=== PATIENT | male | born 1955 | race Caucasian/White ===

== ENCOUNTER 2022-11-24 11:18 | Outpatient (OUT) | payer MEDICARE, OTHER, SELFPAY ==
[2022-11-24 12:00] LABS: Bilirubin Urine NEGATIVE (NEGATIVE); Blood Urine SMALL (NEGATIVE); Color Urine LT. YELLOW (YELLOW); Glucose Urine UA NEGATIVE (NEGATIVE); Ketones Urine NEGATIVE (NEGATIVE); Leukocyte Esterase Urine LARGE (NEGATIVE); Nitrite Urine NEGATIVE (NEGATIVE); Protein Urine 30 mg/dL (NEG/TRACE); Urobilinogen Urine 0.2 EU/dL (0.2-1.0)
[2022-11-24 12:04] LABS: Clarity Urine CLOUDY (CLEAR)
[2022-11-24 12:06] LABS: Bacteria Urine TRACE #/HPF (NONE SEEN); Cast Seen? NONE SEEN #/LPF (NONE SEEN); Crystals Seen? None Seen #/HPF (None Seen); Mucus Urine NONE SEEN (NONE SEEN); RBC Urine 0-2 #/HPF (0-2); Squamous Epithelial Cell Urine NONE SEEN #/LPF (NONE/RARE); WBC Urine >100 #/HPF (NONE SEEN)
[2022-11-24 12:07] LABS: Urine Culture Indicated ALREADY ORDERED
== END 2022-11-24 11:19 | disposition home or self-care (01) ==
PROVIDERS: PCP Internal Medicine; Visit Provider Internal Medicine
DX: R30.0 Dysuria (principal)
CPT/HCPCS: 81001; 87086; 87150; 87186

== ENCOUNTER 2023-02-04 23:39 | Emergency (ER) | payer MEDICARE, OTHER, SELFPAY ==
[2023-02-04 23:55] VITALS: BP 124/80; PULSE 99; RESP 18; TEMP 36.8; O2SAT 98
--- NOTE | 2023-02-05 00:13 | CT_ITS ---
The [address] [address] Patient Name: SHANE ROY MRN: [id number] date: 1955 Sex: M Assigned Patient Location: ER Current Patient Location: ER Accession/Order Number: [id number] Exam Date: 02/05/2023 01:10 Report Date: 02/05/2023 01:40 At the request of: MINNA MARKER Procedure: CT hip LT wo con Examination:CT hip LT wo con INDICATION:left hip pain, non ambulatory COMPARISON:There is an older left hip x-ray dated 10/10/2020 available for correlation. TECHNIQUE:Multiple thin section transaxial slices were acquired through the left hip without contrast. Coronal and sagittal reconstructed images were reviewed. FINDINGS:There is an acute comminuted subcapital fracture of the proximal left femur. There is high riding of the femoral shaft in relation to the femoral head. The femoral head is still articulated with the acetabulum. No additional acute osseous injuries are identified elsewhere in the visualized bony pelvis. No fluid collections are identified in the subcutaneous soft tissues. CT/CT hip LT wo con IMPRESSION: Acute comminuted subcapital fracture of the proximal left femur. Electronically authenticated by: SHAYY KLINE Date: 02/05/2023 01:40
--- NOTE | 2023-02-05 00:14 | ED_ITS ---
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 He did not fall today. He did have a fall several weeks ago and was seen at [facility] where he had a CT scan done. He scan was apparently normal. He has been having some pain waxing and waning since that time and the left hip but it became more severe tonight when he felt a popping sensation in his hip. He denies any chest pain or shortness of breath. He is a dialysis patient and last had dialysis Thursday morning. Related Data Home Medications Medication Instructions Recorded Confirmed calcium acetate(phosphat bind) 667 mg 02/05/23 mg capsule furosemide 40 mg tablet mg 02/05/23 pantoprazole 40 mg tablet,delayed mg PO 02/05/23 release Allergies Allergy/AdvReac Type Severity Reaction Status Date / Time shellfish derived Allergy Intermediate Verified 02/05/23 00:02 NSAIDS (Non-Steroidal Allergy Verified 02/05/23 00:02 Anti-Inflamma Review of Systems ROS Status of ROS 10 or more systems reviewed and unremarkable except as noted in history and below Exam Narrative Exam Narrative: Nurses note and vital signs reviewed and patient is not hypoxic. General: Uncomfortable appearing adult male, he is sitting in a stretcher and unable to weight-bear his buttocks on the left side. Skin: Warm, dry, no pallor noted. There is no rash noted. Head: Normocephalic, atraumatic Eye: Normal conjunctiva, no drainage, EOMI. PERRL Ears, Nose, Mouth, and Throat: oral mucosa is moist. Nares patent. Cardiovascular: Regular Rate and Rhythm S1 and S2, no murmurs rubs or gallops a ppreciated Respiratory: Patient is in no distress, no accessory muscle use, lungs are clear to auscultation, no wheezing, rales or rhonchi Back: No midline bony vertebral tenderness or step-off GI: Normal bowel sounds, no tenderness to palpation, no masses appreciated. No rebound, guarding, or rigidity noted. Musculoskeletal: Tenderness with decreased range of motion to the left lateral hip. Lower extremity strength and sensation is intact. Neurological: A&O x4, normal speech Psychiatric: Cooperative Constitutional Vital Signs, click to edit/add: Last Vital Signs Temp 98.2 F 02/04/23 23:55 Pulse 88 02/05/23 02:50 Resp 18 02/05/23 02:50 BP 111/73 02/05/23 02:50 Pulse Ox 98 02/05/23 02:50 O2 Del Method Room Air 02/05/23 02:50 Course Vital Signs Vital signs: Vital Signs Temperature 98.2 F 02/04/23 23:55 Pulse Rate 99 H 02/04/23 23:55 Respiratory Rate 18 02/04/23 23:55 Blood Pressure 124/80 02/04/23 23:55 Pulse Oximetry 98 02/04/23 23:55 Oxygen Delivery Method Room Air 02/04/23 23:55 Temperature 98.2 F 02/04/23 23:55 Pulse Rate 88 02/05/23 02:50 Respiratory Rate 02/05/23 02:50 Blood Pressure 111/73 02/05/23 02:50 Pulse Oximetry 98 02/05/23 02:50 Oxygen Delivery Method Room Air 02/05/23 02:50 Medical Decision Making MDM Narrative Medical decision making narrative: This 67 year-old male who 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 He did not fall. He did have a fall 2 weeks ago and was seen at [facility] where he had a CAT scan done of the hip at that time. He was visibly uncomfortable in the emergency department more comfortable sitting in a wheelchair. He was medicated with IV Dilaudid and taken for CT scan of the left lower extremity. CT scan shows acute comminuted Subcapital fracture of the proximal femur. Due to the fact that the patient is a dialysis patient he is not amenable for admission to this facility. 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 THe case was discussed with Dr Zaldivar, hospitalist at [facility] and he is accepted for transfer. He remains hemodynamically stable in the ED and routine labs are pending at the time of transfer Medical Records Medical records narrative: The [address] [address] [address] Scan Report Signed Patient: SHANE ROY MR#: [id number] : 1955 Acct:[id number] Age/Sex: 67 / M ADM Date: 02/04/23 Loc: ER Attending Dr: Ordering Physician: Minna Love Date of Service: 02/05/23 Procedure(s): CT hip LT wo con Accession Number(s): [id number] cc: Ronen Chen D.O.~ The [address] [address] Patient Name: SHANE ROY MRN: [facility]:[id number] date: 1955 Sex: M Assigned Patient Location: ER Current Patient Location: ER Accession/Order Number: [id number] Exam Date: 02/05/2023 01:10 Report Date: 02/05/2023 01:40 At the request of: MINNA LOVE Procedure: CT hip LT wo con Examination:CT hip LT wo con INDICATION:left hip pain, non ambulatory COMPARISON:There is an older left hip x-ray dated 10/10/2020 available for correlation. TECHNIQUE:Multiple thin section transaxial slices were acquired through the left hip without contrast. Coronal and sagittal reconstructed images were reviewed. FINDINGS:There is an acute comminuted subcapital fracture of the proximal left femur. There is high riding of the femoral shaft in relation to the femoral head. The femoral head is still articulated with the acetabulum. No additional acute osseous injuries are identified elsewhere in the visualized bony pelvis. No fluid collections are identified in the subcutaneous soft tissues. CT/CT hip LT wo con IMPRESSION: Acute comminuted subcapital fracture of the proximal left femur. Discharge Plan Discharge Chief Complaint: Extremity Injury, Lower Clinical Impression: Closed fracture of left hip Patient Disposition: [facility] Time of Disposition Decision: 02:56 Discharge Location: [facility] Condition: Fair Prescriptions / Home Meds: No Action furosemide 40 mg tablet pantoprazole 40 mg tablet,delayed release (DR/EC) PO calcium acetate(phosphat bind) 667 mg capsule Referrals: Ronen Chen DO [Primary Care Provider] - 1 week
[2023-02-05] MEDS: HYDROMORPHONE HCL 2 MG/ML VIAL 1 MG IV ×2 (00:52→02:04)
[2023-02-05] MEDS: ONDANSETRON PF 4 MG/2 ML VIAL IV (00:52)
--- NOTE | 2023-02-05 01:23 | PC.NURSE ---
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
[2023-02-05 02:50] VITALS: BP 111/73; PULSE 88; RESP 18; O2SAT 98
[2023-02-05] MEDS: HYDROMORPHONE HCL 2 MG/ML VIAL IV (03:03)
[2023-02-05 03:07] LABS: Basophils Percent Auto 0.6 % (0.2-2.0); Eosinophils Absolute Auto 0.3 10^3/uL (0.0-0.7); Eosinophils Percent Auto 4.8 % (0.9-7.0); Hematocrit 34.5 % (42.0-54.0); Hemoglobin 11.3 g/dL (14.0-18.0); Immature Granulocytes Abs Auto 0.05 10^3/uL (0.00-0.03); Immature Granulocytes Pct Auto 0.7 % (0.0-0.5); Lymphocytes Absolute Auto 1.8 10^3/uL (1.2-3.8); Lymphocytes Percent Auto 25.8 % (20.5-60.0); Mean Corpuscular HGB Conc 32.8 g/dL (29.9-35.2); Mean Corpuscular Hemoglobin 32.6 pg (25.9-34.0); Mean Corpuscular Volume 99.4 fL (80.0-94.0); Mean Platelet Volume 9.4 fL (9.5-13.5); Monocytes Absolute Auto 0.8 10^3/uL (0.3-0.8); Monocytes Percent Auto 11.4 % (1.7-12.0); Neutrophils Percent Auto 56.7 % (43.0-75.0); Platelet Count 222 10^3/uL (150-450); Red Blood Count 3.47 10^6/uL (4.70-6.10); Red Cell Distribution Width 15.3 % (11.0-15.0); White Blood Count 7.1 10^3/uL (4.0-11.0)
[2023-02-05 03:17] LABS: Alanine Aminotransferase 25 U/L (16-63); Albumin Level 3.2 g/dL (3.4-5.0); Alkaline Phosphatase 67 U/L (46-116); Anion Gap 12.5; Aspartate Amino Transferase 10 U/L (15-37); BUN Creatinine Ratio 5.7; Bilirubin Total 0.3 mg/dL (0.2-1.0); Calcium 8.7 mg/dL (8.5-10.1); Carbon Dioxide 27.8 mmol/L (21.0-32.0); Chloride 102 mmol/L (98-107); Estimated GFR (African America 15 (>=60); Estimated GFR (Non-African Ame 12 (>=60); Globulin 3.3 g/dL; Glucose 83 mg/dL (74-106); Potassium 3.3 mmol/L (3.5-5.1); Sodium 139 mmol/L (136-145); Total Protein 6.5 g/dL (6.4-8.2)
== END 2023-02-05 03:19 | disposition short-term general hospital (02) ==
PROVIDERS: Emergency Provider Emergency Medicine; PCP Internal Medicine
DX: S72.012A Unspecified intracapsular fracture of left femur, initial encounter for closed fracture (principal); Z99.2 Dependence on renal dialysis; Z79.899 Other long term (current) drug therapy
CPT/HCPCS: 36415; 73700; 80053; 85025; 96374; 96375; 96376; 99285; J1170

== ENCOUNTER 2023-03-26 10:48 | Outpatient (RCR) | payer MEDICARE, OTHER, SELFPAY | END 2023-04-24 11:00 | disposition home or self-care (01) | LOC: PT 10:48 | PROVIDERS: PCP Internal Medicine | DX: Z96.642 Presence of left artificial hip joint (principal) | CPT/HCPCS: 97110; 97161 ==

== ENCOUNTER 2023-07-24 03:16 | Emergency (ER) | payer MEDICARE, OTHER, SELFPAY ==
[2023-07-24] VITALS (10 sets, daily range): BP systolic 100–118; BP diastolic 50–59; PULSE 83–114; RESP 12–27; TEMP 37.1–38.6; O2SAT 95–100; BMI 25.4
--- OUTSIDE RECORDS SUMMARY | 2023-07-24 03:40 | XMS_ITS | CCD ---
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 Name Role Phone GABINO, DR LOVE Primary Care Unavailable QUETA, DR GALLEGOS Admitting Unavailable QUETA, DR GALLEGOS Attending Unavailable QUETA, DR GALLEGOS Consulting Unavailable GABINO, DR LOVE Admitting Unavailable GABINO, DR LOVE Attending Unavailable GABINO, DR LOVE Primary Care Unavailable GABINO, DR LOVE Consulting Unavailable TRISTAN, DR SHAHZAD Paredes Consulting Unavailable GABINO, DR LOVE Admitting Unavailable GABINO, DR LOVE Attending Unavailable GABINO, DR LOVE Primary Care Unavailable GABINO, DR LOVE Consulting Unavailable DO Ivan Lloyd Primary Care Provider MD Tk Shah Admit Provider MD Tk Shah Attending Provider Ivan Lloyd DO Primary Care Provider Unavailable Primary Care Provider UnavailVIANNEY Singh Admitting Unavailable VIANNEY OBREGON Attending Unavailable SAIMA SANDERS Referring Unavailable IVAN LLOYD Primary Care Unavailable DELIA, RED Consulting Unavailable ARI JOSE DANIEL Consulting Unavailable NIKKIE MANCERA Consulting Unavailable FRANSISCO MAITHAM Consulting Unavailable TRELL SHEPHERD Consulting Unavailable vIan lLoyd DO Primary Care Provider IVAN LLOYD Primary Care Physician CHYNA Mckinley Emergency Provider [phone] MD Brandi Rodriguez Admit Provider MD Brandi Rodriguez Attending Provider [phone] MD Sergio Lassiter Other Provider MD He Fam Other Provider MD Rodrigo Miller Attending Provider Ivan Lloyd Unavailable Rodrigo Miller Unavailable He Fam Unavailable DO Ivan Lloyd Primary Care Provider MD Rodrigo Miller Attending Provider MD Tk Shah Admit Provider MD He Fam Other Provider MD Patito Lama Other Provider MD Jerome Pagan Other Provider MD Rubens Sanders Other Provider MD Kim Garcia Other Provider MD Maykel Betancur Other Provider MD Maverick Mendoza Other Provider [phone] Other Provider DO Gibson Aragon Other Provider MD Em Melissa II Other Provider DO Naun Le Other Provider MD Erin Anderson Attending Provider [phone] Em Melissa II Unavailable [phone] Jenny Chau Unavailable DO Ivan Lloyd Primary Care Provider MD Rodrigo Miller Attending Provider MD Tk Shah Admit Provider [phone] MD He Fam Other Provider MD Patito Lama Other Provider MD Jerome Pagan Other Provider MD Rubens Sanders Other Provider MD Kim Garcia Other Provider MD Maykel Betancur Other Provider MD Maverick Mendoza Other Provider MD [address] Other Provider DO Gibson Aragon Other Provider [phone] MD Em Melissa II Other Provider [phone] DO Naun Le Other Provider MD Erin Anderson Attending Provider TuDO Shahab aldrich Emergency Provider MD Em Melissa II Attending Provider [phone] DO Ivan Lloyd Primary Care Provider [phone] MD Rodrigo Miller Attending Provider [phone] Em Melissa II Admitting Unavailrosio e [facility] Primary Care Unavailable Em Melissa II Attending UnavailRodrigo Porras Attending Unavailable Rodrigo Miller Admitting Unavailable [facility] Primary Care Unavailable [facility] Primary Care Unavailable Shahab Jones Attending Unavailable Shahab Jones Admitting Unavailable Daromar, Oblizzie M Attending Unavailable Daromar, Obaydah M Admitting Unavailable [facility] Primary Care Unavailable He Fam Consulting Unavailable [facility] Primary Care Unavailable Daromar, Obaydah M Admitting Unavailable Erin Anderson Attending Unavailable DainaPatito bell Consulting Unavailable Singhania, Jerome Consulting Unavailable Tommy, Rubens Consulting Unavailable Kim Garcia Consulting Unavailable Maykel Betancur Consulting Unavailable Maverick Mendoza Consulting Unavailable [address] Consulting Unavailable Gibson Aragon Consulting Unavailable Em Melissa II Consulting UnavailNaun Holly Consulting Unavailable Sergio Lassiter Consulting UnavailBrandi Nicole Attending Unavailable Brandi Rodriguez Admitting Unavailable [facility] Primary Care Unavailable He Fam Consulting [facility] Rodrigo Miller Attending Unavailable Rodrigo Miller Admitting Unavailable Rodrigo Miller Admitting Unavailable Rodrigo Miller Attending [facility] Rodrigo Miller Attending Unavailable Rodrigo Miller Admitting Unavailable Ball, Ivan Primary Care Unavailable Ball, Ivan Primary Care Unavailable Em Melissa II Attending Unavailrosio e Em Melissa II Admitting Unavailabl e SIMS-PEREZYING Attending Unavailable SIMS-PEREZYING Attending Unavailable BALL, IVAN E Primary Care Unavailable FUJIKI, MASATO Referring Unavailable BALL, IVAN E Primary Care Unavailable BALL, IVAN E Primary Care Unavailable BALL, IVAN E Primary Care Unavailable FUJIKI, MASATO Attending Unavailable CHEVY, MARYSOL N Referring Unavailable BALL, IVAN E Primary Care Unavailable BALL, IVAN E Primary Care Unavailable POGGIO, MICHAEL D Referring Unavailable BALL, IVAN E Primary Care Unavailable CAN YUSUF Attending Unavailable BALL, IVAN E Primary Care Unavailable FUJIKI, MASATO Attending Unavailable CHEVY, MARYSOL N Referring Unavailable BALL, IVAN E Primary Care Unavailable FUJIKI, MASATO Attending Unavailable FUJIKI, MASATO Admitting Unavailable FUJIKI, MASATO Referring Unavailable JUAN MANUEL DUTTON Attending Unavailable BALL, IVAN E Primary Care Unavailable POGGIO, MICHAEL D Referring Unavailable BALL, IVAN E Primary Care Unavailable BALL, IVAN E Primary Care Unavailable BALL, IVAN E Primary Care Unavailable BALL, IVAN E Primary Care Unavailable BALL, IVAN E Primary Care Unavailable ELASHI, ESSAM B Referring Unavailable BALL, IVAN E Primary Care Unavailable ELASHI, ESSAM B Referring Unavailable JulyeBarby. Attending Unavailable Naun Abbasi Attending Unavailable LueBarby M. Attending Unavailable JulyeBarby M. Attending Unavailable Treva, Mohamad A. Attending Unavailable JulyeBarby M. Attending Unavailable JulyeBarby M. Attending Unavailable JulyeBarby M. Attending Unavailable JulyeBarby M. Attending Unavailable JulyeBarby M. Attending Unavailable JulyeBarby M. Attending Unavailable Mouchli, Mohamad A. Admitting Unavailable Mouchli, Mohamad A. Attending Unavailable Mouchli, Mohamad A. Referring Unavailable Elver Suggs Attending Unavailable Allergies Allergy Classification Reported Allergen(s) Allergy Type Date of Onset Reaction(s) Facility (3 sources) Shellfish; Translations: [shellfish] Drug allergy (disorder) 3 Anaphylaxis (disorder), Edema (finding) [facility] (7 sources) Shellfish; Translations: [shellfish derived] Allergy to substance 3 Anaphylaxis [facility] (20 sources) Shellfish; Translations: [shellfish] Drug Allergy 3 Anaphylaxis, Edema (finding), Anaphylaxis (disorder) [facility] (19 sources) Seasonal allergy Propensity to adverse reactions Unknown [employer] Other (4 sources) patient allergy list reviewed by nurse or physicia Propensity to adverse reactions 8 Comment:Done [employer] Other (1 source) Unable to obtain; Translations: [Unable to obtain] Propensity to adverse reactions (disorder) [facility]ository Medications Current Medications Medication Drug Class(es) Dates Sig (Normalized) Sig (Original) Acetaminophen (1 source) Start: 07-28-2022 acetaminophen (TYLENOL) tablet 650 mg ascorbic acid 500 mg oral tablet (12 sources) Vitamin C Start: 02-06-2023 take 1 tablet by mouth twice daily at mealtime Ascorbic Acid (Vitamin C) (Vitamin C) 500 mg Tablet Active 500 MG PO Twice daily with meals February 05, 2023 11:00pm take 1 tablet by mouth once annetta y Ascorbic Acid 500 MG 1 tablet Orally Once a day Active calcium acetate (20 sources) Start: 01-29-2023 calcium acetat e mg, Oral Start Date: 01/29/23 Status: Ordered Start: 09-11-2022 take 1 tablet by asaf th every eight hours Calcium Acetate (Phos Binder) 667 MG 1 tablet Orally Three times a day September, Active calcium citrate 950 mg oral tablet (20 sources) Start: 10-20-2022 calcium (as ca lcium citrate) 200 mg oral tablet 950 mg = 1 tab(s) Start Date: 10/20/22 Status: Ordered Start: 08-13-2022 End: 09-11-2022 take 1 tablet by mouth twice daily calcium citrate (CALCITRATE) 200 mg (950 mg) tab Take 1 tablet by mouth twice daily. 60 tablet 2 08/13/2022 Active Comment on above: Take 1 tablet by asaf th twice daily. Centrum Silver (1 source) Start: 4 Centrum Silver Oral, Daily, Refill(s) 0 Start Date: 07/16/23 Status: Ordered Centrum Silver - (8 sources) Centrum Silver - as directed Orally Active cholecalciferol 0.01 mg oral capsule (12 sources) Vitamin D Start: take 200 [IU] by mouth once daily Cholecalciferol (Vitamin D3) Active 200 UNIT PO Daily January 21, 2023 11:00pm take 1 capsule by mouth once dennise ly cholecalciferol, vitamin D3, (VITAMIN D-3) 10 mcg (400 unit) cap Take 400 Units by mouth once daily. 0 Active take 1 capsule by mouth once dennise ly Cholecalciferol, Vitamin D3, 50 mcg (2,000 unit) cap Take 2,000 Units by mouth once daily. 0 Suspended take 1 capsule by mouth twice da maryse Cholecalciferol ([facility] VITAMIN D) 2000 UNITS CAPS Take 2,000 Units by mouth 2 times daily. 0 Suspended Comment on above: Take 2,000 Units by mouth once daily. Take 400 Units by mo [facility] once daily. Aranesp (20 sources) Erythropoiesis-stimulati ng Agent Start: 07-16-2023 Aranesp once weekly thursday, Refills(s) 0 Start Date: 07/16/23 Status: Ordered Start: 01-22-2023 inject 25 ug by subc utaneous injection every week Darbepoetin Trevor In Polysorbat (Aranesp (In Polysorbate)) 25 mcg/mL Solution Active 25 MCG SUBCUT every week January 21, 2023 11:00pm darbepoetin trevor in polysorbat (ARANESP) 100 mcg/0.5 mL Syringe Inject 100 mcg subcutaneously one time a week. 0 Active Aranesp (Albumin Free) 60 MCG/ML 1 mL Injection Active Comment on above: Inject 100 mcg subcu taneously one time a week. doxycycline hyclate 100 mg oral capsule (9 sources) Tetracycline-class Drug Start: 11-12-2022 take 1 capsule by [facility] once daily in the morning Doxycycline 40 MG 1 capsule in the morni ng on an empty stomach Orally Once a day Active furosemide 40 mg oral tablet (20 sources) Loop Diuretic Start: 09-24-2022 take 1 mg by mouth once daily Lasix 40 mg Tab mg tab(s), Oral, Daily, Refills(s) 0 Start Date: 07/16/23 Status: Ordered Comment on above: Take 40 mg by mouth once daily. heparin (15 sources) Unfractionated Heparin, Anti-coagulant Start: 07-16-2023 heparin See Instructions, 2000 units every dialysis mid dose and 4000 units every diaylsis loading dose., Refills(s) 0 Start Date: 07/16/23 Status: Ordered Heparin Sodium, Porcine, 5,000 unit/mL syrg Inject 1,000 Units intravenously. 0 Active Heparin Sodium ( Porcine) 1000 UNIT/ML as directed Injection Active Heparin Sodium ( Porcine) 1000 UNIT/ML as directed Injection Active Heparin Sodium ( Porcine) 1000 UNIT/ML as directed Injection Active inject 1000 [IU] intravenously o nce Heparin Sodium, Porcine, (HEPARIN, PORCINE) 1000 UNIT/ML injection Infuse 1,000 Units intravenously once. 0 Suspended Comment on above: Inject 1,000 Units i ntravenously. levoFLOXacin 250 mg oral tablet (13 sources) Quinolone Antimicrobial Start: 01-22-2023 End: 02-05-2023 levofloxacin 250 mg Tab Refills(s) 0 Start Date: 01/29/23 Status: Ordered Start: 11-26-2022 levoFLOXacin 250 MG 2 tablets today (Thursday) then 1 tablet after dialysis Thu, Thu and Thursday Orally After dialysis on Thu, Thu and Thursday only for 14 days Active take 1 tablet by asaf th once daily levofloxacin (LEVAQUIN) 250 MG tablet Take 250 mg by mouth daily. 0 Suspended Multivitamin preparation (11 sources) Start: 09-08-2022 take 1 tablet by mouth once daily Multivitamin Active 1 TAB PO Daily September 07, 2022 11:00pm Start: 09-08-2022 take 1 tablet by asaf th once daily Multivitamin Active 1 TAB PO Daily September 08, 2022 12:00am Start: 07-27-2022 End: 09-08-2022 take 1 tablet by mouth once daily Multivitamin Discontinued 1 TAB PO Daily July 27, 2022 12:00am September 08, 2022 12:09pm Start: 07-27-2022 End: 09-08-2022 take 1 tablet by mouth once daily Multivitamin Discontinued 1 TAB PO Daily July 27, 2022 1:00am September 08, 2022 1:09pm Start: 07-27-2022 take 1 tablet by aasf th once daily Multivitamin Active 1 TAB PO Daily July 27, 2022 1:00am ondansetron (ZOFRAN-ODT) disintegrating tablet 4 mg (1 source) Start: 07-28-2022 ondansetron (ZOFRAN-ODT) disintegrating tablet 4 mg oxyCODONE hydrochloride 5 mg oral capsule (10 sources) Opioid Agonist Start: 01-23-2023 take 1 capsule by mouth every six hours as needed for pain oxyCODONE 5 mg Cap 5 mg = 1 cap(s), Oral, q6hr, PRN for pain, # 18 cap(s), Refills(s) 0, Pharmacy: [id number], 183, cm, 01/23/23 17:14:00 EDT, Height/Length Dosing, 83, kg, 01/23/23 17:14:00 EDT, Weight Dosing Start Date: 01/23/23 Status: Ordered Start: 09-08-2022 End: 09-11-2022 take 5 mg by mouth once daily Oxycodone Discontinued 5 MG PO Daily September 07, 2022 11:00pm September 11, 2022 12:18pm Start: 08-13-2022 End: 08-20-2022 take 1 tablet by mouth once daily as needed oxyCODONE IR (ROXICODONE) 5 mg immediate release tablet Indications: Abdominal pain, unspecified abdominal location Take 1 tablet by mouth once daily as needed for up to 7 days. 7 tablet 0 08/13/2022 08/20/2022 Active Comment on above: Take 1 tablet by asaf th once daily as needed for up to 7 days. pantoprazole 40 mg delayed release oral tablet (20 sources) Proton Pump Inhibitor Start: 08-13-2022 End: 04-16-[address] Tab 40 mg = 1 tab(s) Start Date: 10/20/22 Status: Ordered Pantoprazole Sod ium 40 MG 1 tablet Orally Once a day, on an empty stomach 30 minutes prior to bksfst for 90 days Active Comment on above: Take 1 tablet by asaf th twice daily before meals at 6am and 4pm pantoprazole (PROTONIX) 80 mg in sodium chloride 0.9 % 100 mL infusion (1 source) Start: 07-29-19 End: 08-01-19 pantoprazole (PROTONIX) 80 mg in sodium chloride 0.9 % 100 mL infusion 1 ml paricalcitol 0.002 mg/ml injection (4 sources) Vitamin D3 Analog Start: 01-23-20 take 2 ug intravenously three times weekly Paricalcitol (Zemplar) 2 mcg/mL Solution Active 6 MCG IV 3 Times a week January 21, 2023 11:00pm polyethylene glycol 3350 84575 mg powder for oral solution (1 source) Osmotic Laxative Start: 07-29-19 polyethylene glycol (GLYCOLAX) packet 17 g polysaccharide iron complex 150 mg oral capsule (8 sources) take 1 capsule by mouth three times weekly Ferrex 150 150 MG 1 capsule Orally Three times a Week Active sodium bicarbonate 150 mEq in dextrose 5 % 1,000 mL infusion (1 source) Start: 07-29-19 sodium bicarbonate 150 mEq in dextrose 5 % 1,000 mL infusion 1000 ml sodium chloride 9 mg/ml injection (5 sources) Start: 07-29-19 End: 07-30-19 0.9 % sodium chloride infusion Start: 07-28-2022 sodium chlorid e flush 0.9 % injection 5-40 mL tamsulosin hydrochloride 0.4 mg oral capsule (20 sources) alpha-Adrenergic Carmen Start: 09-11-2022 tamsu losin 0.4 mg Cap 0.4 mg = 1 cap(s) Start Date: 10/20/22 Status: Ordered Comment on above: Take 0.4 mg by mouth once daily. Vitamin D3 (1 source) Start: 07-16-2023 Vitamin D3 See Instructions, Refills(s) 0 Start Date: 07/16/23 Status: Ordered Vitamin D3 2000 UNIT (5 sources) take 1 capsule by mouth once dennise ly Completed/Discontinued Medications Medication Drug Class(es) Dates Sig (Normalized) Sig (Original) acetaminophen 325 mg / oxyCODONE hydrochloride 5 mg oral tablet (13 sources) Opioid Agonist Start: 02-06-2023 End: 04-16-2023 take 1 tablet by mouth every six hours Oxycodone-Acetamin ophen (Percocet) 5-325 mg tablet Discontinued 1 TAB PO Q6H 04 11March 05, 2023 April 16, 2023 12:07pm amoxicillin 875 mg / clavulanate 125 mg oral tablet (2 sources) Penicillin-class Antibacterial Start: 03-08-2023 End: 04-16-2023 take 1 tablet by mouth twice daily Amoxicillin-Pot Clavulanate Discontinued 1 TAB PO Twice daily March 07, 2023 11:00pm April 16, 2023 12:05pm apixaban 2.5 mg oral tablet (12 sources) Factor Xa Inhibitor Start: 02-06-2023 End: 04-16-2023 take 1 tablet by mouth twice daily Apixaban (Eliquis) 2.5 mg tablet Discontinued 2.5 MG PO Twice daily 70 35 February 05, 2023 11:00pm April 16, 2023 12:06pm ascorbic acid 100 mg / biotin 0.15 mg / calcium pantothenate 5 mg / folic acid 1 mg / niacin 20 mg / pyridoxine 10 mg / riboflavin 1.7 mg / thiamine mononitrate 1.5 mg / vitamin b12 0.006 mg oral capsule (1 source) Nicotinic Acid, Vitamin B12, Vitamin C take 1 capsule by mouth once daily B Wdsocvt-L-Lnlxl Acid (RENAL SOFTGELS) 1 MG CAPS Take 1 mg by mouth daily. 0 Suspended 100 ml calcium gluconate 20 mg/ml injection (2 sources) Start: 07-28-2022 End: 07-29-2022 calcium gluconate 2,000 mg in sodium chloride 100 mL Calcium Phos,Dibas-Vitamin D3 (Vitamin D (With Calcium)) 77-400 mg-unit Tablet (5 sources) Start: 09-08-2022 End: 09-08-2022 take 1 tablet by mouth once Calcium Phos,Dibas-Vitamin D3 (Vitamin D (With Calcium)) 77-400 mg-unit Tablet Discontinued TAB PO September 07, 2022 11:00pm September 08, 2022 5:16pm Start: 09-08-2022 End: 09-08-2022 take 1 tablet by mouth once Calcium Phos,Dibas-Vitamin D3 (Vitamin D (With Calcium)) 77-400 mg-unit Tablet Discontinued TAB PO September 08, 2022 12:00am September 08, 2022 6:16pm cefadroxil 500 mg oral capsule (10 sources) Cephalosporin Antibacterial Start: 02-06-2023 End: 04-16-2023 take 500 mg by mouth twice daily Cefadroxil Discontinued 500 MG PO Twice daily 14 7 February 05, 2023 11:00pm April 16, 2023 12:06pm take 1 capsule by [facility] every twelve hours Cefadroxil 500 MG 1 capsule Orally every 12 hrs Active cefTRIAXone (ROCEPHIN) 1,000 mg in sterile water 10 mL IV syringe (1 source) Start: 07-28-2022 End: 07-28-2022 cefTRIAXone (ROCEPHIN) 1,000 mg in sterile water 10 mL IV syringe cephalexin 250 mg oral capsule (18 sources) Cephalosporin Antibacterial Start: 09-11-2022 take 1 capsule by mouth twice daily cephALEXin (KEFLEX) 250 mg capsule Take 250 mg by mouth twice daily. 0 09/11/2022 Active Start: 09-11-2022 End: 01-22-2023 take 250 mg by mouth every twelve hours Cephalexin Discontinued 250 MG PO Every 12 hours 6 September 10, 2022 11:00pm January 22, 2023 7:01am Comment on above: Take 250 mg by mouth twice daily. ergocalciferol 1.25 mg oral capsule (20 sources) Provitamin D2 Compound Start: 08-17-19 End: 01-23-20 take 1 capsule by mouth two times weekly ergocalciferol 50,000 unit capsule (VITAMIN D2, DRISDOL) Take 1 capsule by mouth two times a week. 8 capsule 2 08/16/2022 Active Comment on above: Take 1 capsule by [facility] two times a week. ferrous sulfate 324 mg delayed release oral tablet (20 sources) Start: 02-07-20 End: 04-16-20 take 324 mg by mouth twice daily at mealtime Ferrous Sulfate Discontinued 324 MG PO Twice daily with meals February 05, 2023 11:00pm April 16, 2023 12:06pm Start: 08-13-2022 [facility] ferrous sulfate 325 mg (65 mg iron) tablet Take 1 tablet by mouth once daily. 30 tablet 2 08/13/2022 Active Start: 07-27-2022 take 1 tablet by asaf twice daily ferrous sulfate 325 mg (65 mg iron) tablet Take 325 mg by mouth twice daily. 0 07/27/2022 Suspended Start: 07-27-2022 End: 01-22-2023 take 325 mg by mouth once daily Ferrous Sulfate Discon tinued 325 MG PO Daily September 07, 2022 11:00pm January 22, 2023 7:13am Comment on above: Take 325 mg by mouth twice daily. Take 1 tablet by asaf th once daily. iopamidol (ISOVUE-370) 76 % injection 100 mL (1 source) Start: 3 End: 3 iopamidol (ISOVUE-370) 76 % injection 100 mL iron sucrose (1 source) Parenteral Iron Replacement IRON SUCROSE IV Infuse intravenously. 0 Suspended MV with Lio-Gfrphlmy-Dtexqq (CENTRUM SILVER) 0.4 mg-300 mcg- 250 mcg tab (5 sources) MV with Pmg-Hajydurs-Phdmbo (CENTRUM SILVER) 0.4 mg-300 mcg- 250 mcg tab Take by mouth. 0 Active Comment on above: Take by mouth. omeprazole 10 mg granules for oral suspension (3 sources) Proton Pump Inhibitor Omeprazole Magnesium 10 mg suDR Take by mouth as directed. 0 Suspended Comment on above: Take by mouth as dir ected. ondansetron 4 mg oral tablet (20 sources) Serotonin-3 Receptor Antagonist Start: 3 End: 3 take 1 tablet by mouth every twelve hours as needed ondansetron (ZOFRAN) 4 mg tablet Take 1 tablet by mouth every 12 hours as needed for nausea/vomiting. 20 tablet 0 08/13/2022 Active Comment on above: Take 1 tablet by asaf every 12 hours as needed for nausea/vomiting. 50 ml potassium chloride 0.4 meq/ml injection (1 source) Start: 3 End: 3 potassium chloride 20 mEq/50 mL IVPB (Central Line) Start: 07-28-2022 End: 07-28-2022 potassium chloride 20 mEq/50 mL IVPB (Central Line) predniSONE 10 mg oral tablet (4 sources) Start: 01-23-2023 predniSONE 10 mg Tab 10 mg = 1 tab(s), Oral, As Directed, 6 tabs for 2 days,5 tabs for 2 days,4 tabs for 2 days,3 tabs for 2 days,2 tabs for 2 days,1 tab for 2 days, # 42 tab(s), Refills(s) 0, Pharmacy: [id number], 183, cm, 01/23/23 17:14:00 EDT, Height/Length Dosing, 83, kg, 01/23/23 17:14:00 EDT, Weight Dosing Start Date: 01/23/23 Status: Ordered sevelamer carbonate 800 mg powder for oral suspension (3 sources) Phosphate Binder sevelamer carbonate (RENVELA) 0.8 gram pwpk Take 0.8 g by mouth as directed. 0 Suspended Comment on above: Take 0.8 g by mouth as directed. therapeutic multivitamin-minera ls (THERA-M PLUS) 9 mg iron-400 mcg tablet (15 sources) Start: 08-14-2022 therapeutic multivitamin-digital forensics examiner als (THERA-M PLUS) 9 mg iron-400 mcg tablet Take 1 tablet by mouth once daily. 30 tablet 2 08/14/2022 Active Comment on above: Take 1 tablet by asaf th once daily. 100 ml tranexamic acid 10 mg/ml injection (2 sources) Antifibrinolytic Agent Start: 07-28-2022 End: 07-29-2022 tranexamic acid-NaCl IVPB premix 1,000 mg traZODone hydrochloride 50 mg oral tablet (3 sources) Serotonin Reuptake Inhibitor take 1 tablet by mouth once daily at bedtime traZODone (DESYREL) 50 mg tablet Take 50 mg by mouth daily at bedtime. 0 Suspended Comment on above: Take 50 mg by mouth daily at bedtime. warfarin sodium 5 mg oral tablet (3 sources) Vitamin K Antagonist warfarin (COUMADIN) 5 mg tablet Take 5 mg by mouth. 0 Suspended Comment on above: Take 5 mg by mouth. Problems Active Problems Problem Classification Problem Date Documented Date Episodic/Chronic Abdominal hernia (20 sources) Incisional hernia; Translations: [Incisional hernia without obstruction or gangrene] Episodic Acute and unspecified renal failure (20 sources) Uremia; Translations: [Unspecified kidney failure] Onset: 3 07-27-2022 Chronic Acute and unspecified renal failure (20 sources) Injury of kidney; Translations: [Acute kidney failure, unspecified] Onset: 3 07-27-2022 Episodic Administrative/social admission (1 source) Dietary counseling and surveillance; Translations: [Dietary counseling and surveillance] Onset: 4 Episodic Calculus of urinary tract (11 sources) Kidney stone; Translations: [Calculus of kidney] Onset: 3 Episodic Chronic kidney disease (20 sources) Chronic kidney disease, stage 4 (severe); Translations: [Chronic kidney disease, unspecified] Onset: 2 07-29-2022 Chronic Chronic kidney disease (4 sources) Chronic kidney disease; Translations: [Chronic kidney disease, stage 3b] Onset: 3 Complications of surgical procedures or medical care (20 sources) Short bowel syndrome; Translations: [Postsurgical malabsorption, not elsewhere classified] Onset: 3 07-29-2022 Chronic Congestive heart failure; nonhypertensive (1 source) Congestive heart failure; Translations: [Heart failure, unspecified] 07-09-2023 Chronic Deficiency and other anemia (2 sources) Anemia; Translations: [Anemia in chronic kidney disease] Chronic Deficiency and other anemia (2 sources) Anemia in chronic kidney disease Chronic Deficiency and other anemia (20 sources) Anemia; Translations: [Anemia, unspecified] 09-09-2022 Episodic Deficiency and other anemia (14 sources) Pernicious anemia; Translations: [Vitamin B12 deficiency anemia due to intrinsic factor deficiency] Episodic E Codes: Fall (1 source) Fall; Translations: [Unspecified fall, initial encounter] Onset: 3 Episodic Esophageal disorders (19 sources) Gastro-esophageal reflux disease with esophagitis; Translations: [Gastroesophageal reflux disease with esophagitis without hemorrhage] Chronic Essential hypertension (19 sources) Hypertensive disorder; Translations: [Hypertension, unspecified] Chronic Gastritis and duodenitis (1 source) Acute gastritis with bleeding Episodic Gastrointestinal hemorrhage (14 sources) Melena; Translations: [Melena] Onset: 3 Episodic Genitourinary symptoms and ill-defined conditions (20 sources) Acute retention of urine ; Translations: [Other retention of urine] Onset: 3 09-09-2022 Episodic Hyperplasia of prostate (20 sources) Retention of urine; Translations: [Benign prostatic hyperplasia with lower urinary tract symptoms] Onset: 0 Chronic Immunizations and screening for infectious disease (2 sources) Encounter for screening for infections with a predominantly sexual mode of transmission; Translations: [Encounter for screening for human immunodeficiency virus [HIV]] Onset: 4 Episodic Inflammatory conditions of male genital organs (7 sources) Acute prostatitis; Translations: [Prostatitis] Onset: 3 Episodic Nutritional deficiencies (20 sources) Deficiency of macronutrients; Translations: [Unspecified severe protein-calorie malnutrition] Onset: 3 08-04-2022 Chronic Osteoarthritis (14 sources) Osteoarthritis; Translations: [Polyosteoarthritis, unspecified] Chronic Other aftercare (3 sources) Patient encounter status; Translations: [Aftercare following joint replacement surgery] Chronic Other aftercare (1 source) Aftercare following joint replacement surgery Chronic Other circulatory disease (6 sources) Surgically constructed arteriovenous fistula 10-16-2022 Chronic Other connective tissue disease (8 sources) History of total replacement of left hip joint; Translations: [Presence of left artificial hip joint] Chronic Other connective tissue disease (4 sources) Presence of left artificial hip joint Chronic Other connective tissue disease (3 sources) Hip joint prosthesis present; Translations: [Presence of left artificial hip joint] Chronic Other connective tissue disease (1 source) Pain in left arm; Translations: [Pain in left arm] Onset: 3 Episodic Other connective tissue disease (1 source) Other specified soft tissue disorders; Translations: [Other specified soft tissue disorders] Onset: 3 Episodic Other diseases of kidney and ureters (5 sources) Hyperparathyroidism due to renal insufficiency; Translations: [Secondary hyperparathyroidism of renal origin] 09-10-2022 Chronic Other diseases of kidney and ureters (6 sources) Secondary hyperparathyroidism of renal origin; Translations: [Secondary hyperparathyroidism (of renal origin)] Onset: 3 09-11-2022 Chronic Other diseases of kidney and ureters (1 source) Urinary tract obstruction; Translations: [Other obstructive and reflux uropathy] Onset: 3 Episodic Other diseases of veins and lymphatics (20 sources) Peripheral venous insufficiency; Translations: [Venous insufficiency (chronic) (peripheral)] Onset: 3 Episodic Other gastrointestinal disorders (1 source) Intestinal bypass and anastomosis status; Translations: [S/P total gastrectomy and Hanna-en-Y esophagojejunal anastomosis] Onset: 3 Chronic Other gastrointestinal disorders (8 sources) Bariatric surgery status; Translations: [Bariatric surgery status] Onset: 2 07-28-2022 Episodic Other gastrointestinal disorders (8 sources) History of bypass of stomach; Translations: [Bariatric surgery status] Onset: 3 07-27-2022 Episodic Other gastrointestinal disorders (12 sources) H/O: gastrointestinal disease; Translations: [Personal history of other diseases of the digestive system] 07-27-2022 Episodic Other hematologic conditions (1 source) H/O: blood disorder; Translations: [Personal history of diseases of the blood and blood-forming organs and certain disorders involving the immune mechanism] Onset: 4 Episodic Other male genital disorders (1 source) H/O: male genital disorder; Translations: [Personal history of other diseases of male genital organs] Onset: 3 Episodic Other male genital disorders (2 sources) History of prostatitis 03-10-2023 Episodic Other nervous system disorders (2 sources) Postoperative pain ; Translations: [Other acute postprocedural pain] 03-16-2023 Episodic Other non-traumatic joint disorders (14 sources) Arthralgia of the pelvic region and thigh; Translations: [Pain in left hip] Episodic Other non-traumatic joint disorders (1 source) Hip joint effusion; Translations: [Effusion, unspecified hip] Onset: 3 Episodic Other non-traumatic joint disorders (1 source) Pain of left hip joint; Translations: [Pain in left hip] Onset: 3 Episodic Other nutritional; endocrine; and metabolic disorders (2 sources) Obesity, unspecified; Translations: [OBESITY UNSPECIFIED] Onset: 2 Chronic Other nutritional; endocrine; and metabolic disorders (13 sources) Obesity; Translations: [Obesity, unspecified] Chronic Other nutritional; endocrine; and metabolic disorders (13 sources) Obese class I; Translations: [Body mass index 32.0-32.9, adult] Onset: 0 Chronic Other nutritional; endocrine; and metabolic disorders (13 sources) Simple obesity ; Translations: [Other obesity due to excess calories] Onset: 0 Chronic Other nutritional; endocrine; and metabolic disorders (1 source) Other obesity due to excess calories; Translations: [Other obesity due to excess calories] Onset: 0 Chronic Other nutritional; endocrine; and metabolic disorders (1 source) Primary hyperoxaluria; Translations: [Oxalosis (HCC)] Onset: 4 Chronic Other nutritional; endocrine; and metabolic disorders (1 source) Other disorders of phosphorus metabolism; Translations: [Hyperphosphatemia] Onset: 3 Chronic Other nutritional; endocrine; and metabolic disorders (14 sources) Overweight; Translations: [Overweight] Episodic Other nutritional; endocrine; and metabolic disorders (1 source) Abnormal weight loss; Translations: [Abnormal weight loss] Onset: 4 Episodic Other screening for suspected conditions (not mental disorders or infectious disease) (8 sources) Encounter for screening for malignant neoplasm of prostate; Translations: [Encounter for screening for malignant neoplasm of colon] Onset: 2 Episodic Peripheral and visceral atherosclerosis (1 source) Vascular disorder of intestine, unspecified; Translations: [Ischemia, bowel (HCC)] Onset: 3 Chronic Phlebitis; thrombophlebitis and thromboembolism (20 sources) Personal history of other venous thrombosis and embolism; Translations: [Embolism from thrombosis of vein of distal lower extremity] Onset: 2 Episodic Residual codes; unclassified (1 source) Awaiting organ transplant status; Translations: [Awaiting transplantation of kidney] Onset: 4 Chronic Residual codes; unclassified (3 sources) H/O: Disorder; Translations: [Personal history of other specified conditions] Onset: 3 Episodic Residual codes; unclassified (1 source) Past history of procedure; Translations: [Other specified postprocedural states] Onset: 4 Episodic Spondylosis; intervertebral disc disorders; other back problems (15 sources) Lumbosacral spondylosis without myelopathy; Translations: [Other spondylosis with radiculopathy, lumbosacral region] Onset: 3 Chronic Unclassified (1 source) PERSONAL HISTORY OF COVID-19; Translations: [PERSONAL HISTORY OF COVID-19] Onset: 2 Unclassified (1 source) Presence of left artificial hip joint; Translations: [Presence of left artificial hip joint] Onset: 3 Unclassified (1 source) Encounter for adjustment and management of vascular access device; Translations: [Encounter for adjustment and management of vascular access device] Onset: 3 Unclassified (1 source) Fracture of unspecified part of neck of left femur, initial encounter for closed fracture; Translations: [Fracture of unspecified part of neck of left femur, initial encounter for closed fracture] Onset: 3 Unclassified (1 source) Encounter for other preprocedural examination; Translations: [Encounter for other preprocedural examination] Onset: 3 Unclassified (1 source) Acidosis, unspecified; Translations: [Acidosis, unspecified] Onset: 3 Viral infection (4 sources) COVID-19; Translations: [COVID-19] Onset: 2 Past or Other Problems Problem Classification Problem Date Documented Da te Episodic/Chronic Abdominal pain (1 source) Unspecified abdominal pain; Translations: [Abdominal pain, unspecified abdominal location] Onset: 07-29-2022 Episodic Acute posthemorrhagic anemia (20 sources) Acute posthemorrhagic anemia; Translations: [Acute posthemorrhagic anemia] Onset: 07-27-2022 07-27-2022 Episodic Deficiency and other anemia (12 sources) Anemia, unspecified; Translations: [Anemia, unspecified] Onset: 03-21-2022 Episodic Esophageal disorders (3 sources) Esophageal disorders Fluid and electrolyte disorders (20 sources) Metabolic acidosis; Translations: [Metabolic acidosis] Onset: 07-29-2022 07-27-2022 Episodic Fracture of neck of femur (hip) (14 sources) Closed fracture of hip; Translations: [Fracture of unspecified part of neck of left femur, initial encounter for closed fracture] Onset: 02-05-2023 02-05-2023 Episodic Nutritional deficiencies (14 sources) Vitamin B deficiency; Translations: [Deficiency of other specified B group vitamins] Onset: 01-31-2013 Episodic Other aftercare (1 source) Other intermediate (current) drug therapy; Translations: [OTH NURSING HOME CURRENT DRUG THERAPY] Onset: 12-02-2021 Episodic Other diseases of veins and lymphatics (1 source) Venous insufficiency (chronic) (peripheral); Translations: [VENOUS INSUFF CHRONIC PERIPHERAL] Onset: 12-02-2021 Episodic Other gastrointestinal disorders (4 sources) Personal history of other diseases of the digestive system; Translations: [Personal history of other diseases of digestive system] Onset: 07-27-2022 07-28-2022 Episodic Other nutritional; endocrine; and metabolic disorders (1 source) Body mass index (BMI) 28.0-28.9, adult; Translations: [BODY MASS INDEX BMI 28.0-28.9 ADULT] Onset: 12-02-2021 Episodic Other upper respiratory infections (1 source) Acute pharyngitis, unspecified; Translations: [ACUTE PHARYNGITIS UNSPECIFIED] Onset: 12-02-2021 Episodic Pulmonary heart disease (1 source) Personal history of pulmonary embolism; Translations: [PERSONAL HISTORY PULMONARY EMBOLISM] Onset: 12-02-2021 Episodic Residual codes; unclassified (1 source) Other specified postprocedural states; Translations: [S/P exploratory laparotomy] Onset: 08-04-2022 Episodic Residual codes; unclassified (1 source) Acquired absence of stomach [part of]; Translations: [S/P total gastrectomy and Hanna-en-Y esophagojejunal anastomosis] Onset: 07-29-2022 Episodic Residual codes; unclassified (1 source) Encounter for procedure for purposes other than remedying health state, unspecified; Translations: [Surgery, elective] Onset: 07-29-2022 Episodic Respiratory failure; insufficiency; arrest (adult) (1 source) Respiratory failure; insufficiency; arrest (adult); Translations: [Unspecified venous (peripheral) insufficiency] Onset: 01-31-2013 Shock (1 source) Other shock; Translations: [Hemorrhagic shock (HCC)] Onset: 07-29-2022 Episodic Syncope (9 sources) Syncope and collapse; Translations: [Syncope and collapse] Onset: 07-27-2022 07-27-2022 Episodic Unclassified (14 sources) Hernia of other specified sites, with gangrene; Translations: [Hernia of other specified sites, with gangrene] Resolved: 02-08-2020 Unclassified (1 source) Body mass index 32.0-32.9, adult; Translations: [Body mass index 32.0-32.9, adult] Onset: 05-[birth year]-1959 Unclassified (1 source) Routine general medical examination at health care facility; Translations: [Routine general medical examination at health care facility] Onset: 01-15-2016 Urinary tract infections (8 sources) Urinary tract infectious disease; Translations: [Urinary tract infection, site not specified] Onset: 09-08-2022 09-08-2022 Episodic Results Test Name Value Interpretation Reference Range Facility [facility] 07-22-2023 Consent [id number] F [facility] Discharge Instructionson Discharge Instructions [id number] F [facility] Main OR Intraoperative Recor don 07-22-2023 Main OR Intraoperative Record IntraOp Document Type FT Summary Primary Physician: Catrachita Tilley MD Finalized Date/Time: 07/22/23 12:44:56 Pt. Name: MELE SKY /Sex: 1955 Male Med Rec #: [id number] Physician: Catrachita Tilley MD Financial #: [id number] Pt. Type: O Room/Bed: / Admit/Disch: 07/21/23 07:44:39 - 07/21/23 23:59:59 Institution: Case Times FT Entry 1 Patient Times In Room 07/21/23 08:40:00 Out Room 07/21/23 09:17:00 Procedure Times Start 07/21/23 08:46:00 Stop 07/21/23 09:15:00 Anesthesia Times Start 07/21/23 08:40:00 Stop 07/21/23 09:17:00 Time at [facility] 07/21/23 09:00:00 Last Modified By: Apolonia Jimenez RN 07/21/23 09:17:17 General Comments: 07/22/23 Chart opened to review and send charges LRoth CSFA Case Attendance FT Entry 1 Entry 2 Entry 3 Case Attendee Rosalio Nice RN, Astrid Antunez Role Performed Anesthesiologist [employer] - Primary Scrub - Primary Paper Counter Time In 07/21/23 08:40:00 07/21/23 08:40:00 07/21/23 08:40:00 Time Out 07/21/23 09:17:00 07/21/23 09:17:00 07/21/23 09:17:00 Procedure COLONOSCOPY(.) COLONOSCOPY(.) COLONOSCOPY(.) Comments Dr. Sims is supervising Last Modified By: Tony THOMPSON, Apolonia Jimenez RN, Apolonia Egan RN 07/21/23 09:17:19 07/21/23 09:17:19 07/21/23 09:17:19 Entry 4 Entry 5 Case Attendee Mynor Reina MD, Catrachita Klein Role Performed Staff - Other Surgeon - Primary Time In 07/21/23 08:40:00 07/21/23 08:40:00 Time Out 07/21/23 09:17:00 07/21/23 09:17:00 Procedure COLONOSCOPY(.) COLONOSCOPY(.) Comments Last Modified By: Apolonia Jimenez RN, RN, Kristin N 07/21/23 09:17:19 07/21/23 09:17:19 Perioperative Protocols FT Pre-Care Text: Implements protective measures prior to operative or invasive procedure, confirms identity before the operative or invasive procedure, verifies operative procedure, surgical site, and laterality Entry 1 Procedure(s) COLONOSCOPY(.) Patient Identity Birthday, ID Band Verified (select at Check, Patient least 2): Participation Consents / H and P Anesthesia Consent, Operative Site N/A Verified Surgery/Procedure Marking Verified Consent, Transfusion Consent Surgical Site No Laterality Verified n/a Verified Procedure Verified Yes Correct Patient Yes Position Verified Availability Equipment, Medication Prep Dry n/a Verified (If Applicable) PreOp Antibiotic No Time Out Rosalio Nice, Given Participants Apolonia Jimenez RN, Miles, Kirstyn K, Sparks, Micala E, Mouchli MD, Catrachita Klein Time Out Complete 07/21/23 08:43:00 Outcomes Met? Yes Last Modified By: Apolonia Jimenez RN 07/21/23 08:43:38 Post-Care Text: The patient is free from signs and symptoms of injury caused by extraneous objects Allergy Information FT Pre-Care Text: Verifies allergies Entry 1 Allergies Reviewed? Yes Allergies Reviewed Self/Patient With Outcomes Met? Yes Last Modified By: Apolonia Jimenez RN 07/21/23 08:43:49 Post-Care Text: The patient received appropriate medication(s) safely administered during the perioperative period Surgical Procedures FT Entry 1 Procedure Description Procedure COLONOSCOPY Modifiers . Surgeon Description Colonoscopy Primary Procedure Yes Primary Surgeon Treva JENKINS, Catrachita Klein Start 07/21/23 08:46:00 Stop 07/21/23 09:15:00 Anesthesia Type General Surgical Service Gastroenterology Wound Class 2 - Clean-Contaminated Last Modified By: Apolonia Jimenez RN 07/21/23 09:15:34 General Case Data FT Pre-Care Text: Classifies surgical wound, implements aseptic technique, initiates traffic control Entry 1 Case Information OR ENDO 1 FT Case Level Level 2 Wound Class 2 - Clean-Contaminated Specialty Gastroenterology ASA Class 4 Preop Diagnosis Screening, history of Postop Same As Preop No gastric bypass, history of anemia Postop Diagnosis Fair prep, significant Outcomes Met? Yes looping, hemorrhoids, redundant colon Last Modified By: Apolonia Jimenez RN 07/21/23 09:16:11 Post-Care Text: The patient is free from signs and symptoms of infection Skin Assessment (Pre Procedure) FT Pre-Care Text: Implements protective measures to prevent skin/ tissue injury due to thermal or mechanical sources Evaluates for signs and symptoms of physical injury to skin and tissue Entry 1 Skin Integrity Intact, [place], Warm, and Skin Abnormality No Dry Outcomes Met? Yes Last Modified By: Apolonia Jimenez RN 07/21/23 08:45:06 Post-Care Text: The patient is free from signs and symptoms of injury caused by extraneous objects Patient Positioning FT Pre-Care Text: Identifies physical alterations that require additional precautions for procedure-specific positioning, verifies presence of prosthetics or corrective devices, positions the patient, evaluates the patient for signs and symptoms of injury as a result of positioning Entry 1 Pro (more content not included)... [facility] Postoperative Documentson Postoperative Documents [id number] F [facility] Consent for Treatmenton Consent for Treatment [id number] F [facility] Discharge Instructionson Discharge Instructions MELE SKY :1955 Visit Date:07/21/2023 Inpatient Discharge Instructions Your Care Team Admitting Physician - Catrachita Tilley MD Referring Physician - Catrachita Tilley MD Reason for Your Visit SCREENING FOR COLON CANCER, HX OF COLONOSCOPY, HX OF GASTRIC BYPASS, HX OF ANEMIA Your Diagnosis Redundant colon This Is Your Medications List calcium acetate cholecalciferol (Vitamin D3) darbepoetin trevor (Aranesp) furosemide (Lasix 40 mg Tab) heparin multivitamin with minerals (Centrum Silver) oxycodone (oxyCODONE 5 mg Cap) pantoprazole (Pantoprazole [address] Tab) predniSONE (predniSONE 10 mg Tab) tamsulosin (tamsulosin 0.4 mg Cap) Procedure History Cystoscopy (03/10/2023), TRUS - Transrectal ultrasonography (03/10/2023), Hip joint (01/16/2023), Colonoscopy, Gastric bypass, History of hernia repair, Procedure on upper arm. Discharge Vitals Temperature (Temporal Artery) 36.2 ?C Heart Rate (Monitored) 61 Respiratory Rate 7 Blood Pressure 83/49 Height 184 cm Weight 87.6 kg What to do next Instructions From Your Doctor Event Name Event Result Pharmacy Information [facility] Previously Scheduled Follow-Up Appointments Thursday 1:45 PM EDT With: Casper JENKINS, Barby Ramirez Where: [facility] Comment on above: Result Comment: Elec tronically Signed By: ROBER THOMPSON, ZAINAB Ling\.br\Date and Time Signed: 07/21/23 09:29 EST Endoscopic Procedure Report - Otheron 07-21-2023 Endoscopic Procedure Report - Other Patient: MELE SKY Age: 67 years Sex: Male : 1955 Associated Diagnoses: None Author: Catrachita Tilley MD Pre-Procedure Procedure Date 07/10/2023 09:11:00 . Procedure Type: Colonoscopy. Procedure provider Performed by Catrachita Tilley MD. Current history and physical Documented on chart. Cystoscopy ([id number]) on 03/10/2023 at 67 Years. TRUS - Transrectal ultrasonography ([id number]) on 03/10/2023 at 67 Years. Hip joint ([id number]) on 01/16/2023 at 67 Years. Gastric bypass ([id number]). History of hernia repair (3800664941). Colonoscopy ([id number]). Procedure on upper arm ([id number]).. Past Medical History No active or resolved past medical history items have been selected or recorded.. Family History Diabetes mellitus Mother Primary malignant neoplasm of lung Father . Procedure History Cystoscopy ([id number]) on 03/10/2023 at 67 Years. TRUS - Transrectal ultrasonography ([id number]) on 03/10/2023 at 67 Years. Hip joint ([id number]) on 01/16/2023 at 67 Years. Gastric bypass (8618339727). History of hernia repair (6616789292). Colonoscopy ([id number]). Procedure on upper arm (156159959).. Colorectal neoplasm risk assessment Average risk. Informed Consent After discussing the rationale, risks and benefits, and alternatives to this procedure, the patient provided signed consent for the procedure. Pre-procedure diagnosis: Screening. Medications (Selected) Inpatient Medications Ordered Lactated Ringers IV Bindu 1000 mL 1,000 mL: 1,000 mL, IV, 100 mL/hr, Routine, Start date 07/21/23 7:32:00 EST, 10 hour(s), Total volume (mL): 1,000, 87.6 kg, 2.12, m2 Sodium Chloride 0.9% IV Bindu 1000 mL 1,000 mL: 1,000 mL, IV, 20 mL/hr, Routine, Start date 07/21/23 6:48:00 EST, 50 hour(s), Total volume (mL): 1,000, 87.6 kg, 2.12, m2 Prescriptions Prescribed oxyCODONE 5 mg Cap: 5 mg = 1 cap(s), Oral, q6hr, PRN for pain, # 18 cap(s), Refills(s) 0, Pharmacy: [email or web address] #[id number], 183, cm, 01/23/23 17:14:00 EDT, Height/Length Dosing, 83, kg, 01/23/23 17:14:00 EDT, Weight Dosing predniSONE 10 mg Tab: 10 mg = 1 tab(s), Oral, As Directed, 6 tabs for 2 days,5 tabs for 2 days,4 tabs for 2 days,3 tabs for 2 days,2 tabs for 2 days,1 tab for 2 days, # 42 tab(s), Refills(s) 0, Pharmacy: [facility] #[id number], 183, cm, 01/23/23 17:14:00 EDT, Height/L... Documented Medications Documented Aranesp: SubCutaneous, q2wk, once weekly thursday, Refills(s) 0, Other (see comment) Centrum Silver: 1 tab(s), Oral, Daily, Refill(s) 0, Prophylaxis Lasix 40 mg Tab: 40 mg = 1 tab(s), Oral, Daily, Refills(s) 0, diuretic/water pill Pantoprazole [address] Tab: 40 mg = 1 tab(s), Oral, Daily, Control of stomach acid Vitamin D3: Oral, Daily, Refills(s) 0, Prophylaxis calcium acetate: 2,001 mg, Oral, QID, Other (see comment) heparin: See Instructions, 2000 units every dialysis mid dose and 4000 units every diaylsis loading dose., Refills(s) 0 tamsulosin 0.4 mg Cap: 0.4 mg = 1 cap(s), Oral, Daily, Bladder problems ASA Classification: Class III. . Monitoring: See anesthesia record. . Procedure The procedure was performed in the hospital. See anesthesia record for sedation given during procedure. Rectal exam: Lax anal tone. The patient was positioned starting in the left lateral decubitus position. Endoscope type used was. The endoscope was lubricated then introduced through the anus. Advanced to. No difficulties encountered during the procedure. The bowel preparation quality was fair and was adequate (see polyps greater than or equal to 6 millimeters). The patient tolerated the procedure well. Bowel prep was fair but this was suctioned to be adequate. Findings Fair bowel prep-suctioned to become adequate Significant looping and redundant colon Internal hemorrhoids Normal TI Withdrawal time 15 minutes Images Procedure images: Rec_hd_video_ [id number].jpg Rec_hd_video_ [id number].jpg Rec1_hd_video_ [id number].jpg Rec1_hd_video_ [id number].jpg Rec1_hd_video_ [id number].jpg Rec1_hd_video_ [id number].jpg Rec1_hd_video_ [id number].jpg Rec1_hd_video_ [id number].jpg . Post-Procedure Complications: none. Estimated blood loss: none. Specimens: none. Devices/ implants: none left in place. Impression and Plan Diagnosis: Redundant colon ([id number] Q43.8, Working, Medical). Course: Progressing as expected. Recommendations: Repeat colonoscopy:: In 5 years, With 2 day bowel prep . Follow-up:: As needed. Diet:: Regular diet. Medication resumption:: Continue current medica (more content not included)... Normal [facility] Comment on above: Result Comment: Elec tronically Signed By: Treva JENKINS, Catrachita Klein\.br\Date and Time Signed: 07/21/23 09:21 EST Other Comment: Magy dang Attachment - attachment storage system not supported [id number] Can be viewed in source systemMissing Attachment - attachment storage system not supported [id number] Can be viewed in source systemMissing Attachment - attachment storage system not supported [id number] Can be viewed in source systemMissing Attachment - attachment storage system not supported [id number] Can be viewed in source systemMissing Attachment - attachment storage system not supported [id number] Can be viewed in source systemMissing Attachment - attachment storage system not supported [id number] Can be viewed in source systemMissing Attachment - attachment storage system not supported [id number] Can be viewed in source systemMissing Attachment - attachment storage system not supported [id number] Can be viewed in source system Main OR PACU I Recordon 03-0 Main OR PACU I Record PACU Phase I Docum ent Type FT Summary Primary Physician: Catrachita Tilley MD Finalized Date/Time: 07/21/23 10:03:11 Pt. Name: MELE SKY.O.B./Sex: 1955 Male Med Rec #: [id number] Physician: Catrachita Tilley MD Financial #: [id number] Pt. Type: O Room/Bed: / Admit/Disch: 07/21/23 07:44:39 - Institution: Case Times PACU I FT Pre-Care Text: Identifies barriers to communication and implements measures to provide psychological support Develops individualized plan of care, and ensures continuity of care Maintains patient's dignity and privacy, and maintains patient confidentiality Identifies and reports philosophical, cultural, and spiritual beliefs and values Identifies individual values and wishes concerning care Implements aseptic technique, and administers prescribed antibiotic therapy and immunizing agents as ordered Evaluates postoperative tissue perfusion Implements thermoregulation measures, and monitors body temperature Evaluates postoperative respiratory status Evaluates postoperative cardiac status Evaluates postoperative neurological status Assesses pain control, collaborated in initiating patient-controlled analgesia and implements alternative methods of pain control Verifies allergies, administers prescribed medications and solutions, evaluates response to medications Entry 1 In PACU I 07/21/23 09:18:00 Discharge from PACU 07/21/23 09:48:00 I Outcomes Met? Yes Last Modified By: ZAINAB RICHTER RN 07/21/23 10:02:57 Post-Care Text: The patient demonstrates knowledge of the expected response to the operative or invasive procedure The patient's care is consistent with the individualized perioperative plan of care The patient's right to privacy is maintained The patient's value system, lifestyle, ethnicity, and culture are considered, respected, and incorporated into the perioperative plan of care The patient participates in decisions affecting his or her perioperative plan of care The patient is free from signs and symptoms of infection The patient has wound/tissue perfusion consistent with or improved from baseline levels established preoperatively The patient is at or returning to normothermia at the conclusion of the immediate postoperative period The patient's respiratory function is consistent with or improved from baseline levels established preoperatively The patient's cardiovascular status is consistent with or improved from baseline levels established preoperatively The patient's cardiovascular status is consistent with or improved from baseline levels established preoperatively The patient demonstrates and/or reports adequate pain control throughout the perioperative period The patient received appropriate medication(s), safely administered during the perioperative period Acuity Level PACU I FT Entry 1 Start Time 07/21/23 09:18:00 Stop Time 07/21/23 09:48:00 Acuity Level Acuity Level I Last Modified By: ZAINAB RICHTER RN 07/21/23 10:03:08 Finalized By: ZAINAB RICHTER RN Document Signatures Signed By: ZAINAB RICHTER RN 07/21/23 10:03 Normal [facility] Main OR Preoperative Recordo n 07-21-2023 Main OR Preoperative Record Holding Area Document Type FT Summary Primary Physician: Catrachita Tilley MD Finalized Date/Time: 07/21/23 08:19:08 Pt. Name: MELE SKY /Sex: 1955 Male Med Rec #: [id number] Physician: Catrachita Tilley MD Financial #: [id number] Pt. Type: O Room/Bed: / Admit/Disch: 07/21/23 07:44:39 - Institution: Case Times Holding FT Pre-Care Text: Verifies consent for planned procedure, identifies individual values and wishes concerning care, includes family members in perioperative teaching Secures patient's records' belongings, and valuables, maintains patient's dignity and privacy, and maintains patient confidentiality Entry 1 In Holding 07/21/23 07:53:00 Outcomes Met? Yes Last Modified By: Gayla Starr RN 07/21/23 07:54:56 Post-Care Text: The patient participates in decisions affecting his or her perioperative plan of care The patient's right to privacy is maintained Surgery Checklist FT Entry 1 Patient Birthday, ID Band Procedure History and Physical, Identification: Check, Patient Verification: Surgical Consent, With Participation Patient NPO after Midnight: Yes Results Reviewed Yellow Comments: Personal Items: Glasses, Jewelry Personal Items Glassess, ring, left Comment: hip metal, dialysis port Limitations: Vision Complaints of Pain: No Pain Comment: Denies Operative Site n/a Marking: Availability Equipment Verified: Does Patient Smoke No Patient states Yes Comment - Adult Anika postop adult Supervision supervision available Case Cancelled in No Holding Area see comments below for reason Last Modified By: Gayla Starr RN 07/21/23 08:02:38 General Comments: Pt completed prep at 0400 and remained NPO since/AARTIRN Finalized By: Gayla Starr RN Document Signatures Signed By: Gayla Starr RN 07/21/23 08:19 Normal [facility] Monitor Recordon 07-21-2023 Monitor Record [id number] [id number] FF [facility] Monitor Record [id number] [id number] FF [facility] Patient Education - Texton 0 07-21-2023 Patient Education - Text Colonoscopy Care After Surgery Please read the instructions outlined below and refer to this sheet in the next few weeks. These discharge instructions provide you with general information on caring for yourself after you leave the hospital. Your doctor may also give you specific instructions. While your treatment has been planned according to the most current medical practices available, unavoidable complications occasionally occur. If you have any problems or questions after discharge, please call your doctor. ACTIVITY You may resume your regular activity, but move at a slower pace for the next 24 hours. Take frequent rest periods for the next 24 hours. Walking will help get rid of the air and reduce the bloated feeling in your abdomen (belly). No driving for 24 hours (because of the anesthesia (medicine) used during the test). You may shower. Do not sign any important legal documents or operate any machinery for 24 hours (because of the anesthesia used during the test). NUTRITION Drink plenty of fluids. You may resume your normal diet as instructed by your doctor. Begin with a light meal and progress to your normal diet. Heavy or fried foods are harder to digest and may make you feel nauseated (sick to your stomach). Avoid alcoholic beverages for 24 hours or as instructed. MEDICATIONS You may resume your normal medications unless your doctor tells you otherwise. WHAT YOU CAN EXPECT TODAY Some feelings of bloating in the abdomen. Passage of more gas than usual. Spotting of blood in your stool or on the toilet paper. FOLLOW-UP Your doctor will discuss the results of your test with you. SEEK IMMEDIATE MEDICAL ATTENTION IF: There is more than a spotting of blood in your stool. There is abdominal distention (your abdomen is swollen). There is vomiting. You have a temperature over 101.5 F. There is abdominal pain or discomfort that is severe or gets worse throughout the day. Gastroenterology Hemorrhoids Hemorrhoids are swollen veins that may develop: ? In the butt (rectum). These are called internal hemorrhoids. ? Around the opening of the butt (anus). These are called external hemorrhoids. Hemorrhoids can cause pain, itching, or bleeding. Most of the time, they do not cause serious problems. They usually get better with diet changes, lifestyle changes, and other home treatments. What are the causes? This condition may be caused by: ? Having trouble pooping (constipation). ? Pushing hard (straining) to poop. ? Watery poop (diarrhea). ? . ? Being very overweight (obese). ? Sitting for long periods of time. ? Heavy lifting or other activity that causes you to strain. ? Anal sex. ? Riding a bike for a long period of time. What are the signs or symptoms? Symptoms of this condition include: ? Pain. ? Itching or soreness in the butt. ? Bleeding from the butt. ? Leaking poop. ? Swelling in the area. ? One or more lumps around the opening of your butt. How is this diagnosed? A doctor can often diagnose this condition by looking at the affected area. The doctor may also: ? Do an exam that involves feeling the area with a gloved hand (digital rectal exam). ? Examine the area inside your butt using a small tube (anoscope). ? Order blood tests. This may be done if you have lost a lot of blood. ? Have you get a test that involves looking inside the colon using a flexible tube with a camera on the end (sigmoidoscopy or colonoscopy). How is this treated? This condition can usually be treated at home. Your doctor may tell you to change what you eat, make lifestyle changes, or try home treatments. If these do not help, procedures can be done to remove the hemorrhoids or make them smaller. These may involve: ? Placing rubber bands at the base of the hemorrhoids to cut off their blood supply. ? Injecting medicine into the hemorrhoids to shrink them. ? Shining a type of light energy onto the hemorrhoids to cause them to fall off. ? Doing surgery to remove the hemorrhoids or cut off their blood supply. Follow these instructions at home: Eating and drinking ? Eat foods that have a lot of fiber in them. These include whole grains, beans, nuts, fruits, and vegetables. ? Ask your doctor about taking products that have added fiber (fibersupplements). ? Reduce the amount of fat in your diet. You can do this by: ? Eating low-fat dairy products. ? Eating less red meat. ? Avoiding processed foods. ? Drink enough fluid to keep your pee (urine) pale yellow. Managing pain and swelling ? Take a warm-water bath (sitz bath) for 20 minutes to ease pain. Do this 3?4 times a day. You may do this in a bathtub or using a portable sitz bath that fits over the toilet. ? If told, put ice on the painful area. It may be helpful to use ice between your warm baths. ? Put ice in a plas (more content not included)... [facility] Consent for Procedure/Surger yon 07-17-2023 Consent for Procedure/Surgery [id number] F [facility] Ambulatory Visit Summaryon 0 07-16-2023 Ambulatory Visit Summary MELE SKY :1955 Visit Date:07/16/2023 Ambulatory Visit Instructions Your Diagnosis Screening for colon cancer H/O colonoscopy History of gastric bypass History of anemia Weight loss Your Care Team Attending Physician - Treva JENKINS, Catrachita Klein Primary Care Physician - IVAN LLOYD DO This Is Your Medications List Contact prescribing physician if questions or concerns calcium acetate cholecalciferol (Vitamin D3) darbepoetin trevor (Aranesp) furosemide (Lasix 40 mg Tab) furosemide (furosemide 40 mg Tab) heparin levofloxacin (levofloxacin 250 mg Tab) multivitamin with minerals (Centrum Silver) oxycodone (oxyCODONE 5 mg Cap) pantoprazole (Pantoprazole [address] Tab) predniSONE (predniSONE 10 mg Tab) tamsulosin (tamsulosin 0.4 mg Cap) Procedures Performed Cystoscopy (03/10/2023), TRUS - Transrectal ultrasonography (03/10/2023), Hip joint (01/16/2023), Colonoscopy, Gastric bypass, History of hernia repair, Procedure on upper arm. Discharge Vitals Heart Rate (Peripheral) 88 Respiratory Rate 16 Blood Pressure 116/69 Height 184 cm Height 72 in Weight 87.6 kg Weight 192.72 lb BMI 25.87 What to do next Scheduled Follow-Up Appointments Thursday 1:45 PM EDT With: Casper JENKINS, Barby Ramirez Where: [facility] Gastroenterology Office/Clin ic Noteon 07-16-2023 Gastroenterology Office/Clinic Note Chief Complaint screening colon HPI Staff This is a 67 year old male who presents today for a screening colonoscopy. Denies fhx of colon cancer. Denies abdominal pain, constipation, diarrhea, bloody stools. Labs 05/20/23 HCV RNA- neg HBV core Ab- neg HBV surf Ab- neg HCV Ab- neg Hgb- 11.2 Hct- 34.1 Hep A Ab- neg HBV surf Ag- Neg History of Present Illness hx of incomplete colonoscopy due to significant looping in 2009 hx of stomach surgery ( bypass ) followed by surgery for necrotic bowel bleeding from small bowel requiring urgent surgery in July 2022 pt needs kidney and due for colon screening Pt lost weight since he used to weight 410 pounds I have reviewed HPI staff note, most recent labs and imaging, more than 30 minutes spent reviewing the chart, during encounter, placing orders and counseling the patient. Review of Systems PHQ Score Initial Depression Screen Score: 0 SCORE All systems reviewed, negative except as mentioned above Physical Exam Vitals & Measurements HR: 88(Peripheral) RR: 16 BP: 116/69 HT: 72 in HT: 184 cm WT: 87.6 kg WT: 192.72 lb BMI: 25.87 General: alert, no acute distress HEENT: atraumatic normocephalic Cardiovascular: regular rate and rhythm, normal peripheral perfusion Respiratory: Lungs CTA, respirations non labored Extremities: no deformity, no trauma Abdomen: Benign, soft, nontender nondistended Assessment/Plan 1. Screening for colon cancer (Z12.11: Encounter for screening for malignant neoplasm of colon) Ordered: Colonoscopy (Hospital Procedure) 2. H/O colonoscopy (Z98.890: Other specified postprocedural states) Ordered: Colonoscopy (Hospital Procedure) 3. History of gastric bypass (Z98.84: Bariatric surgery status) Ordered: Colonoscopy (Hospital Procedure) 4. History of anemia (Z86.2: Personal history of diseases of the blood and blood-forming organs and certain disorders involving the immune mechanism) Ordered: Colonoscopy (Hospital Procedure) 5. Weight loss (R63.4: Abnormal weight loss) will schedule colonoscopy is required before kidney transplantation and he is due for screening. Will use pediatric scope given history of incomplete colonoscopy due to significant looping Follow-up No qualifying data available Problem List/Past Medical History Ongoing FITO (acute kidney injury) Anemia BPH with urinary obstruction GI bleed Hemodialysis access, fistula mature History of necrotic bowel History of prostatitis History of urinary retention Kidney stones Renal failure, chronic Historical No qualifying data Procedure/Surgical History Cystoscopy (03/10/2023), TRUS - Transrectal ultrasonography (03/10/2023), Hip joint (01/16/2023), Colonoscopy, Gastric bypass, History of hernia repair, Procedure on upper arm. Medications Aranesp calcium acetate, Oral Centrum Silver, Oral, Daily furosemide 40 mg Tab, 40 mg= 1 tab(s), Not taking heparin, See Instructions Lasix 40 mg Tab, Oral, Daily levofloxacin 250 mg Tab, Not taking oxyCODONE 5 mg Cap, 5 mg= 1 cap(s), Oral, q6hr, PRN, Not taking Pantoprazole [address] Tab, 40 mg= 1 tab(s) predniSONE 10 mg Tab, 10 mg= 1 tab(s), Oral, As Directed, Not taking tamsulosin 0.4 mg Cap, 0.4 mg= 1 cap(s) Vitamin D3, See Instructions Allergies shellfish (Anaphylaxis, Edema, Edema) Social History Alcohol - Denies Alcohol Use, 01/23/2023 Current, Beer, Wine, Liquor, 1-2 times per month, 07/27/2022 Substance Abuse - Denies Substance Abuse, 07/27/2022 Tobacco - Denies Tobacco Use, 01/23/2023 Never (less than 100 in lifetime) Tobacco Use:. Never Smokeless Tobacco Use:., 07/16/2023 Never (less than 100 in lifetime) Tobacco Use:. Never Smokeless Tobacco Use:., 01/29/2023 Family History Diabetes mellitus: Mother. Primary malignant neoplasm of lung: Father. Immunizations Vaccine Date Status Comments SARS-CoV-2 (COVID-19) mRNA-1273 vaccine 02/17/2022 Given Prophylaxis influenza virus vaccine, inactivated 02/17/2022 Given Prophylaxis SARS-CoV-2 (COVID-19) mRNA-1273 vaccine 04/01/2021 Given influenza virus vaccine, inactivated 02/27/2021 Given Prophylaxis SARS-CoV-2 (COVID-19) mRNA BNT-162b2 vax 07/13/2020 Recorded SARS-CoV-2 (COVID-19) mRNA-1273 vaccine 06/21/2020 Recorded SARS-CoV-2 (COVID-19) mRNA-1273 vaccine 05/24/2020 Recorded Normal [facility] Comment on above: Result Comment: Elec tronically Signed By: Treva JENKINS, Catrachita Pratt.br\Date and Time Signed: 07/16/23 09:45 EST NM Heart Perfusion W stress and W radionuclide Amina 07-14-2023 [facility] CNNURSEon 06-23-2023 CNNURSE Normal [facility] [id number] 06-23-2023 ECG01 Normal [facility] PT panel Coag (PPP)on 2023 INR Coag (PPP) [Relative time] 1.0 {INR} Normal 0.9-1.3 [facility] Comment on above: Order Comment: Speci men Type: BLOOD SPECIMENOrdering Facility: [facility] Address: [address] [place] [address] Result Comment: Lisa min K Antagonist (VKA) Therapeutic Range: INR 2 to 3 (Target INR of 2.5)Note: For patients treated with VKA drugs, such as warfarin, the [place] [employer] 2012 Guideline recommends a therapeutic INR range of 2 to 3 (target INR of 2.5). This recommendation includes high-risk patients with antiphospholipid syndrome with previous arterial or venous thromboembolism, current-generation mechanical or bioprosthetic aortic heart valve replacement.Note: Patients with mechanical aortic valve replacement and additional risk factors for thromboembolic events (atrial fibrillation, previous thromboembolism, LV dysfunction, hypercoagulable conditions) or an older generation mechanical AVR (i.e., ball in-Cage) or any mechanical MVR should have a INR therapeutic range of 2.5 to 3.5 (target INR of 3).Jimy QUIROS, et al. Chest 2012, 141:7S-47SMarija RA, et al. [facility] 2017, 70: 252-289 Performed By: #### 1 4979-9, 70596-3 ####[facility] [id number] [place] [address] [place] PT Coag (PPP) [Time] 10.5 s Normal 9.7-13.0 [facility] Comment on above: Order Comment: Speci tristan Type: BLOOD SPECIMENOrdering Facility: [facility] Address: [address] [place] [address] Performed By: #### 1 4979-9, 96488-9 ####[facility] [id number] [place] [address] [place] aPTT PPPon 06-23-2023 aPTT Coag (PPP) [Time] 25.8 s Normal 23.0-32.4 [facility] Comment on above: Order Comment: Moshei tristan Type: BLOOD SPECIMENOrdering Facility: [facility] Address: [address] [place] [address] Result Comment: Froz en Plasma Aliquot Performed By: #### 1 4979-9, 08281-2 ####[facility] [id number] [place] [address] [place] Physician Referralon 024 Physician Referral [id number] [id number] F Normal [facility] BLOOD TB SCREENon 05-19-2023 M. tuberculosis tuberculin stim IFN-g Ql (Bld) Negative Normal [facility] Comment on above: Order Comment: Speci men Type: BLOOD SPECIMENOrdering Facility: [facility] Address: [address] [place] [address] Performed By: #### I NFTBP ####[facility] LABCLIA [id number] [place] [address] [place] MITOGEN MINUS NIL >9.99 Normal >=0.50 [facility] Comment on above: Order Comment: Speci men Type: BLOOD SPECIMENOrdering Facility: [facility] Address: [address] [place] [address] Performed By: #### I NFTBP ####[facility] LABCLIA [id number] [place] [address] [place] TB GAMMA INTERPRETATION Normal [facility] Comment on above: Order Comment: Speci men Type: BLOOD SPECIMENOrdering Facility: [facility] Address: [address] [place] [address] Performed By: #### I NFTBP ####[facility] LABCLIA [id number] [place] [address] [place] TB NIL 0.01 IU/mL Normal <=8.00 [facility] Comment on above: Order Comment: Speci men Type: BLOOD SPECIMENOrdering Facility: [facility] Address: [address] [place] [address] Performed By: #### I NFTBP ####[facility] LABCLIA [id number] [place] [address] [place] TB1 AG MINUS NIL 0.01 IU/mL Normal <0.35 [facility] Comment on above: Order Comment: Speci men Type: BLOOD SPECIMENOrdering Facility: [facility] Address: [address] [place] [address] Performed By: #### I NFTBP ####[facility] LABCLIA [id number] [place] [address] [place] TB2 AG MINUS NIL 0.02 IU/mL Normal <0.35 [facility] Comment on above: Order Comment: Speci men Type: BLOOD SPECIMENOrdering Facility: [facility] Address: [address] [place] [address] Performed By: #### I NFTBP ####[facility] LABIA [id number] [place] [address] [place] CBC panel Auto (Bld)on 05-19 Erythrocyte distribution width (RBC) [Ratio] 13.2 % Normal 11.5-15.0 [facility] Comment on above: Order Comment: Speci men Type: BLOOD SPECIMENOrdering Facility: [facility] Address: [address] [place] [address] Performed By: #### 5 8410-2 ####[facility] LABIA [id number] [place] [address] [place] Hematocrit (Bld) [Volume fraction] 34.1 % Low 39.0-51.0 [facility] Comment on above: Order Comment: Speci men Type: BLOOD SPECIMENOrdering Facility: [facility] Address: [address] [place] [address] Performed By: #### 5 8410-2 ####[facility] LABIA [id number] [place] [address] [place] Hemoglobin (Bld) [Mass/Vol] 11.2 g/dL Low 13.0-17.0 [facility] Comment on above: Order Comment: Speci men Type: BLOOD SPECIMENOrdering Facility: [facility] Address: [address] [place] [address] Performed By: #### 5 8410-2 ####[facility] LABIA [id number] [place] [address] [place] MCH (RBC) [Entitic mass] 31.2 pg Normal 26.0-34.0 [facility] Comment on above: Order Comment: Speci men Type: BLOOD SPECIMENOrdering Facility: [facility] Address: [address] [place] [address] Performed By: #### 5 8410-2 ####[facility] LABCLIA [id number] [place] [address] [place] MCHC (RBC) [Mass/Vol] 32.8 g/dL Normal 30.5-36.0 [facility] Comment on above: Order Comment: Speci men Type: BLOOD SPECIMENOrdering Facility: [facility] Address: [address] [place] [address] Performed By: #### 5 8410-2 ####[facility] LABIA [id number] [place] [address] [place] MCV (RBC) [Entitic vol] 95.0 fL Normal 80.0-100.0 [facility] Comment on above: Order Comment: Speci men Type: BLOOD SPECIMENOrdering Facility: [facility] Address: [address] [place] [address] Performed By: #### 5 8410-2 ####[facility] LABIA [id number] [place] [address] [place] Nucleated RBC (Bld) [#/Vol] 10*3/uL Normal <0.01 [facility] Comment on above: Order Comment: Speci men Type: BLOOD SPECIMENOrdering Facility: [facility] Address: [address] [place] [address] Performed By: #### 5 8410-2 ####[facility] LABIA [id number] [place] [address] [place] Platelet mean volume (Bld) [Entitic vol] 10.1 fL Normal 9.0-12.7 [facility] Comment on above: Order Comment: Speci men Type: BLOOD SPECIMENOrdering Facility: [facility] Address: [address] [place] [place] [address] Performed By: #### 5 8410-2 ####[facility] LABIA [id number] [place] [address] [place] Platelets (Bld) [#/Vol] 130 10*3/uL Low 150-400 [facility] Comment on above: Order Comment: Speci men Type: BLOOD SPECIMENOrdering Facility: [facility] Address: [address] [place] [address] Performed By: #### 5 8410-2 ####[facility] LABCLIA [id number] [place] [address] [place] RBC (Bld) [#/Vol] 3.59 10*6/uL Low 4.20-6.00 [facility] Comment on above: Order Comment: Speci men Type: BLOOD SPECIMENOrdering Facility: [facility] Address: [address] [place] [address] Performed By: #### 5 8410-2 ####[facility] LABCLIA [id number] [place] [address] [place] WBC (Bld) [#/Vol] 5.41 10*3/uL Normal 3.70-11.00 [facility] Comment on above: Order Comment: Speci men Type: BLOOD SPECIMENOrdering Facility: [facility] Address: [address] [place] [address] Performed By: #### 5 8410-2 ####[facility] LABCLIA [id number] [place] [address] [place] CMV IgG Qnon 05-19-2023 CMV IGG QUAL Negative Normal Negative [facility] Comment on above: Order Comment: Speci men Type: BLOOD SPECIMENOrdering Facility: [facility] Address: [address] [place] [address] Result Comment: No s erological evidence of past exposure to Cytomegalovirus. Cannot exclude recent infection if the specimen collected within 4-6 weeks after infection. Performed By: #### V ZVG2, 7885-7, MEASLG, 7852-7 ####[facility] LABCLIA [id number] [place] [address] [place] CMV IgG SerPl-aCncon 024 CMV IgG Qn <0.20 Normal [facility] Comment on above: Order Comment: Speci men Type: BLOOD SPECIMENOrdering Facility: [facility] Address: [address] [place] [address] Result Comment: The magnitude of the measured result is not indicative of the amount of antibody present.U/mL values are interpreted as follows:Negative <0.6Equivocal 0.6 to <0.70Positive >=0.70 Performed By: #### V ZVG2, 7885-7, MEASLG, 7852-7 ####[facility] [place] LABCLIA [id number] [place] [address] [place] CNCNPATEDon 05-19-2023 CNCNPATED Normal [facility] CNOVon 05-19-2023 CNOV Normal [facility] CNOV Normal [facility] CNOV Normal [facility] CNSWon 05-19-2023 CNSW Normal [facility] Comprehensive metabolic 2000 panelon 05-19-2023 Albumin [Mass/Vol] 4.1 g/dL Normal 3.9-4.9 [facility] Comment on above: Order Comment: Speci men Type: BLOOD SPECIMENOrdering Facility: [facility] Address: [address] [place] [address] Performed By: #### 2 4323-8, 2777-1, 59284-7 ####[facility] LABCLIA [id number] [place] [address] [place] ALP [Catalytic activity/Vol] 57 U/L Normal 38-113 [facility] Comment on above: Order Comment: Speci men Type: BLOOD SPECIMENOrdering Facility: [facility] Address: [address] [place] [address] Performed By: #### 2 4323-8, 2777-1, 68150-1 ####[facility] LABCLIA [id number] [place] [address] [place] ALT [Catalytic activity/Vol] 26 U/L Normal 10-54 [facility] Comment on above: Order Comment: Speci men Type: BLOOD SPECIMENOrdering Facility: [facility] Address: [address] [place] [address] Performed By: #### 2 4323-8, 2777-1, 89908-9 ####[facility] LABCLIA [id number] [place] [address] [place] Anion gap [Moles/Vol] 18 mmol/L Normal 9-18 [facility] Comment on above: Order Comment: Speci men Type: BLOOD SPECIMENOrdering Facility: [facility] Address: [address] [place] [address] Performed By: #### 2 4323-8, 2777-1, 83482-3 ####[facility] [place] LABCLIA [id number] [place] [address] [place] AST [Catalytic activity/Vol] 29 U/L Normal 14-40 [facility] Comment on above: Order Comment: Speci men Type: BLOOD SPECIMENOrdering Facility: [facility] Address: [address] [place] [address] Performed By: #### 2 4323-8, 2777-1, 73251-2 ####[facility] LABCLIA [id number] [place] [address] [place] Bilirubin [Mass/Vol] 0.4 mg/dL Normal 0.2-1.3 [facility] Comment on above: Order Comment: Speci men Type: BLOOD SPECIMENOrdering Facility: [facility] Address: [address] [place] [address] Performed By: #### 2 4323-8, 2777-1, 51203-2 ####[facility] LABCLIA [id number] [address] [address] [place] Calcium [Mass/Vol] 8.7 mg/dL Normal 8.5-10.2 [facility] Comment on above: Order Comment: Speci men Type: BLOOD SPECIMENOrdering Facility: [facility] Address: [address] [place] [address] Performed By: #### 2 4323-8, 2777-1, 94435-5 ####[facility] [place] LABCLIA [id number] [place] [address] [place] Chloride [Moles/Vol] 100 mmol/L Normal 97-105 [facility] Comment on above: Order Comment: Speci men Type: BLOOD SPECIMENOrdering Facility: [facility] Address: [address] [place] [address] Performed By: #### 2 4323-8, 2777-1, 34539-8 ####[facility] [place] LABCLIA [id number] [place] [address] [place] CO2 [Moles/Vol] 24 mmol/L Normal 22-30 [facility] Comment on above: Order Comment: Speci men Type: BLOOD SPECIMENOrdering Facility: [facility] Address: [address] [place] [address] Performed By: #### 2 4323-8, 2777-1, 82454-0 ####[facility] LABIA [id number] [place] [address] [place] Creatinine [Mass/Vol] 7.54 mg/dL High 0.73-1.22 [facility] Comment on above: Order Comment: Speci men Type: BLOOD SPECIMENOrdering Facility: [facility] Address: [address] [place] [address] Performed By: #### 2 4323-8, 2777-1, 17555-5 ####[facility] LABIA [id number] [place] [address] [place] Creatinine and Glomerular filtration rate.predicted panel (S/P/Bld) 7 mL/min/1.73m??? Low >=60 [facility] Comment on above: Order Comment: Speci men Type: BLOOD SPECIMENOrdering Facility: [facility] Address: [address] [place] [address] Result Comment: Lamar mated Glomerular Filtration Rate (eGFR) is calculated using the 2020 CKD-EPI creatinine equation. This equation utilizes serum creatinine, sex, and age as parameters. The creatinine assay has traceable calibration to isotope dilution-mass spectrometry. Refer to KDIGO guidelines for clinical interpretation. In patients with unstable renal function, e.g. those with acute kidney injury, the eGFR may not accurately reflect actual GFR. Performed By: #### 2 4323-8, 2777-1, 93664-8 ####[facility] LABIA [id number] [place] [address] [place] Glucose [Mass/Vol] 83 mg/dL Normal 74-99 [facility] Comment on above: Order Comment: Specjohnathan men Type: BLOOD SPECIMENOrdering Facility: [facility] Address: [address] [place] [address] Result Comment: The [place] Diabetes Association (ADA) provides guidance for cutoff values for fasting glucose and random glucose. The ADA defines fasting as no caloric intake for at least 8 hours. Fasting plasma glucose results between 100 to 125 mg/dL indicate increased risk for diabetes (prediabetes).Fasting plasma glucose results greater than or equal to 126 mg/dL meet the criteria for diagnosis of diabetes. In the absence of unequivocal hyperglycemia, results should be confirmed by repeat testing. In a patient with classic symptoms of hyperglycemia or hyperglycemic crisis, random plasma glucose results greater than or equal to 200 mg/dL meet the criteria for diagnosis of diabetes.Reference: Standards of Medical Care in Diabetes 2016, [place] [employer]. Diabetes Care. 2016.39(Suppl 1). Performed By: #### 2 4323-8, 2777-1, 98479-1 ####[facility] LABIA [id number] [place] [id number] [place] Potassium [Moles/Vol] 3.9 mmol/L Normal 3.7-5.1 [facility] Comment on above: Order Comment: Speci men Type: BLOOD SPECIMENOrdering Facility: [facility] Address: [address] [place] [address] Performed By: #### 2 4323-8, 2777-1, 48198-9 ####[facility] [place] LABCLIA [id number] [address] [address] [place] Protein [Mass/Vol] 6.4 g/dL Normal 6.3-8.0 [facility] Comment on above: Order Comment: Speci men Type: BLOOD SPECIMENOrdering Facility: [facility] Address: [address] [place] [address] Performed By: #### 2 4323-8, 2777-1, 25897-7 ####[facility] LABIA [id number] [place] [address] [place] Sodium [Moles/Vol] 142 mmol/L Normal 136-144 [facility] Comment on above: Order Comment: Speci men Type: BLOOD SPECIMENOrdering Facility: [facility] Address: [address] [place] [address] Performed By: #### 2 4323-8, 2777-1, 45496-4 ####[facility] [id number] [place] [address] [place] Urea nitrogen [Mass/Vol] 66 mg/dL High 9-24 [facility] Comment on above: Order Comment: Speci men Type: BLOOD SPECIMENOrdering Facility: [facility] Address: [address] [place] [address] Performed By: #### 2 4323-8, 2777-1, 05724-2 ####[facility] LABIA [id number] [address] [address] [place] EBV capsid IgG Qn (S)on EBV VCA IGG, QUAL Positive Abnormal Negative [facility] Comment on above: Order Comment: Speci men Type: BLOOD SPECIMENOrdering Facility: [facility] Address: [address] [place] [address] Result Comment: The result suggests recent or past EBV infection. The final interpretation should be done in the context of other EBV serology panel results. Performed By: #### V ZVG2, 7885-7, MEASLG, 7852-7 ####[facility] LABCLIA [id number] [address] [place] Free PSA [Mass/Vol]on 2023 Free PSA/Total PSA [Mass fraction] 45 % Normal [facility] Comment on above: Order Comment: Speci men Type: BLOOD SPECIMENOrdering Facility: [facility] Address: [address] [place] [address] Result Comment: Tota l and free PSA test methodology used is the Electrochemiluminescence Immunoassay by [employer]. Total or free PSA values by differing methodologies cannot be interchanged.The below table lists the probability of finding prostate cancer upon needle biopsy, for men 50 years or older and total PSA concentrations from 4.0-10.0 ng/mL. Results should be interpreted within the broader clinical context.Free PSA(%) 50-59 years 60-69 years >69 years <11 49.2% 57.5% 64.5% 11-18 26.9% 33.9% 40.8% 19-25 18.3% 23.9% 29.7% >25 9.1% 12.2% 15.8% Performed By: #### 2 4323-8, 2777-1, 79759-3 ####[facility] LABIA [id number] [place] [address] [place] Prostate specific Ag [Mass/Vol] 1.71 ng/mL Normal <2.60 [facility] Comment on above: Order Comment: Speci men Type: BLOOD SPECIMENOrdering Facility: [facility] Address: [address] [place] [address] Result Comment: Tota l PSA test methodology used is the Electrochemiluminescence Immunoassay by [employer]. Total PSA values by differing methodologies cannot be interchanged. Performed By: #### 2 4323-8, 2777-1, 71093-3 ####[facility] LABCLIA [id number] [place] [address] [place] HBV core Ab Ser Qlon 024 HBV core Ab Ql (S) Negative Normal Negative [facility] Comment on above: Order Comment: Speci men Type: BLOOD SPECIMENOrdering Facility: [facility] Address: [address] [place] [address] Result Comment: No e vidence of current or past infection with Hepatitis B virus. Should recent infection be suspected, repeat testing may be considered 3-4 weeks after this draw. Performed By: #### 5 195-3, 35876-9, 07092-0, 45533-9 ####[facility] LABCLIA [id number] [place] [address] [place] HBV surface Ab Ql (S)on HBV surface Ab Qn (S) 52.04 mIU/mL Normal [facility] Comment on above: Order Comment: Speci men Type: BLOOD SPECIMENOrdering Facility: [facility] Address: [address] [place] [address] Result Comment: <8 m IU/mL: No serological evidence of immunity to Hepatitis B Virus.>/= 8 to <12 mIU/mL: No serological evidence of immunity to Hepatitis B Virus.>/= 12 mIU/mL: Consistent with serological evidence of immunity to Hepatitis B Virus. Performed By: #### 5 195-3, 00382-7, 32148-9, 17214-4 ####[facility] LABCLIA [id number] [place] [id number] [place] HBV surface Ab Ser Qlon HBV surface Ab Ql (S) Positive Normal [facility] Comment on above: Order Comment: Speci men Type: BLOOD SPECIMENOrdering Facility: [facility] Address: [address] [place] [address] Result Comment: Cons istent with serological evidence of immunity to Hepatitis B Virus. Performed By: #### 5 195-3, 99258-5, 06250-0, 14901-6 ####[facility] LABCLIA [id number] [place] [id number] [place] HBV surface Ag Ser Qlon HBV surface Ag Ql (S) Negative Normal Negative [facility] Comment on above: Order Comment: Speci men Type: BLOOD SPECIMENOrdering Facility: [facility] Address: [address] [place] [address] Performed By: #### 5 195-3, 42194-5, 96631-0, 72933-9 ####[facility] LABCLIA [id number] [place] [address] [place] HCV Ab Ser Qlon 05-19-2023 HCV Ab Ql (S) Negative Normal Negative [facility] Comment on above: Order Comment: Speci men Type: BLOOD SPECIMENOrdering Facility: [facility] Address: [address] [place] [address] Result Comment: The result suggests no evidence of active infection with Hepatitis C virus. Should recent infection be suspected, repeat testing may be considered 4-6 weeks after this draw. Performed By: #### 1 6128-1 ####[facility] LABCLIA [id number] [place] [address] [place] HCV RNA SerPl WAYLON+probe-aCnc on 05-19-2023 HCV RNA WAYLON+probe Qn Not detected Normal HCV RNA not detected by PCR. [facility] Comment on above: Order Comment: Speci men Type: BLOOD SPECIMENOrdering Facility: [facility] Address: [address] [place] [address] Performed By: #### 1 1011-4 ####[facility] LABIA [id number] [place] [address] [place] HEPATITIS A ANTIBODY, IGGon 05-19-2023 HAV IgG Ql (S) Negative Normal [facility] Comment on above: Order Comment: Speci men Type: BLOOD SPECIMENOrdering Facility: [facility] Address: [address] [place] [address] Result Comment: No s erological evidence of immunity to Hepatitis A Virus. Performed By: #### 7 3752-8, AHAVG ####[facility] LABCLIA [id number] [place] [address] [place] HIV 1+2 Ab IA Qlon 4 HIV 1 and 2 Ab IA.rapid Nom (S/P/Bld) Normal [facility] Comment on above: Order Comment: Speci men Type: BLOOD SPECIMENOrdering Facility: [facility] Address: [address] [place] [address] Result Comment: Test not indicated. Performed By: #### 5 195-3, 12524-4, 38363-2, 11279-0 ####[facility] LABCLIA [id number] [place] [address] [place] HIV 1+2 Ab+HIV1 p24 Ag IA Ql Non-Reactive Normal Nonreactive [facility] Comment on above: Order Comment: Speci men Type: BLOOD SPECIMENOrdering Facility: [facility] Address: [address] [place] [address] Performed By: #### 5 195-3, 21006-6, 06820-0, 62356-1 ####[facility] LABCLIA [id number] [place] [address] [place] HIV immunoassay testing algorithm interpretation (S/P/Bld) [Interp] Normal [facility] Comment on above: Order Comment: Speci men Type: BLOOD SPECIMENOrdering Facility: [facility] Address: [address] [place] [address] Result Comment: No e vidence of HIV-1 or HIV-2 infection. Should recent infection be suspected, repeat testing may be considered 2-3 weeks after this draw.[place] Rev. Code 3701.243(E): This information has been disclosed to you from confidential records protected from disclosure by state law. ???You shall make no further disclosure of this information without the specific, written, and informed release of the individual to whom it pertains or as otherwise permitted by state law. A general authorization for the release of medical or other information is not sufficient for the purpose of the release of HIV test results or diagnoses. Performed By: #### 5 195-3, 67281-3, 02773-6, 64062-2 ####[facility] LABCLIA [id number] [place] [address] [place] KID K/P PANC REC INIT W/Uon 05-19-2023 ALLOGEN RESULTS TO FOLLOW See Allogen report to follow Normal [facility] Comment on above: Order Comment: Speci men Type: BLOOD SPECIMENOrdering Facility: [facility] Address: [address] [place] [address] Performed By: #### K PRIPW ####[facility] [id number] [place] [address] [place] OXALATEon 05-19-2023 Oxalate [Moles/Vol] 18.8 umol/L High <2.0 [facility] Comment on above: Order Comment: Speci men Type: BLOOD SPECIMENOrdering Facility: [facility] Address: [address] [place] [address] Performed By: #### O XLATE ####[facility] LABIA [id number] [place] [address] [place] PTH-Intact SerPl-ncon 01-0 Parathyrin.intact [Mass/Vol] 211 pg/mL High 15-65 [facility] Comment on above: Order Comment: Speci men Type: BLOOD SPECIMENOrdering Facility: [facility] Address: [address] [place] [address] Performed By: #### 2 731-8 ####[facility] LABIA [id number] [place] [address] [place] Phosphate SerPl-mCncon 05-19 Phosphate [Mass/Vol] 6.1 mg/dL High 2.7-4.8 [facility] Comment on above: Order Comment: Speci men Type: BLOOD SPECIMENOrdering Facility: [facility] Address: [address] [place] [address] Performed By: #### 2 4323-8, 2777-1, 98554-1 ####[facility] LABCLIA [id number] [place] [address] [place] RUBEOLA (MEASLES)IGGon 05-19 MEASLES IGG AB, QUAL Negative Abnormal Positive [facility] Comment on above: Order Comment: Speci [facility] Type: BLOOD SPECIMENOrdering Facility: [facility] Address: [address] [place] [address] Result Comment: The result suggests no history of Measles vaccination or exposure to Measles virus, however, the current test does not detect neutralizing antibodies and some individuals with past history of Measles vaccination may test negative using this test. Please correlate with past history of vaccination if applicable. Performed By: #### V ZVG2, 7885-7, MEASLG, 7852-7 ####[facility] LABCLIA [id number] [place] [address] [place] Reagin and Treponema pallidu m IgG and IgM [Interp]on 05-19-2023 T. pallidum IgG+IgM IA Ql (S) Non-Reactive Normal Nonreactive [facility] Comment on above: Order Comment: Chayito hudson Type: BLOOD SPECIMENOrdering Facility: [facility] Address: [address] [place] [address] Performed By: #### 7 3752-8, [facility] ####[facility] LABIA [id number] [place] [address] [place] Reagin+T pallidum IgG+IgM Se rPl-Impon 05-19-2023 Reagin and Treponema pallidum IgG and IgM [Interp] Cannot exclude recent Treponemal infection if specimen collected within 7-10 days after appearance of suspect lesions or 2-3 weeks after an exposure. Clinical correlation is required. Normal [facility] Comment on above: Order Comment: Chayito hudson Type: BLOOD SPECIMENOrdering Facility: [facility] Address: [address] [place] [address] Performed By: #### 7 3752-8, AHAVG ####[facility] LABCLIA [id number] [place] [address] [place] STRONGYLOIDES IGG BLon 05-19 STRONGYLOIDES IGG QUALITATIVE Negative Normal Negative [facility] Comment on above: Order Comment: Speci men Type: BLOOD SPECIMENOrdering Facility: [facility] Address: [address] [place] [address] Performed By: #### S TRSER ####[facility] LABCLIA [id number] [place] [address] [place] TYPE + SCREENon 05-19-2023 ABO B Normal [facility] Comment on above: Order Comment: Speci men Type: BLOOD SPECIMENOrdering Facility: [facility] Address: [address] [place] [address] Performed By: #### T SCR ####[facility] BLOOD BANKCLIA [id number] [place] [address] [place] HISTORICAL AB SCR STATUS Negative Normal [facility] Comment on above: Order Comment: Speci men Type: BLOOD SPECIMENOrdering Facility: [facility] Address: [address] [place] [address] Performed By: #### T SCR ####CC [facility] BLOOD BANKCLIA [id number] [place] [address] [place] Rh Nom (Bld) Positive Normal [facility] Comment on above: Order Comment: Speci men Type: BLOOD SPECIMENOrdering Facility: [facility] Address: [address] [place] [address] Performed By: #### T SCR ####CC [facility] BLOOD BANKCLIA [id number] [place] [address] [place] TYPE AND SCREEN EXPIRATION 05/22/2023 23:59 Normal [facility] Comment on above: Order Comment: Speci men Type: BLOOD SPECIMENOrdering Facility: [facility] Address: [address] [place] [address] Performed By: #### T SCR ####CC [facility] BLOOD BANKCLIA [id number] [place] [address] [place] VARICELLA ZOSTER IGGon 05-19 VARICELLA ZOSTER IGG, QUAL Positive Normal Positive [facility] Comment on above: Order Comment: Speci men Type: BLOOD SPECIMENOrdering Facility: [facility] Address: [address] [place] [address] Result Comment: The result suggests recent or past exposure to Varicella-Zoster virus or chickenpox vaccination or zoster vaccination. Positive result may also be seen due to presence of passively-transferred antibodies. Please correlate with patient's history. Performed By: #### V ZVG2, 7885-7, MEASLG, 7852-7 ####[facility] LABCLIA [id number] [address] OF [facility] XR hip LT min 2V(w/wo pelvis )*on 04-30-2023 XR hip LT min 2V(w/wo pelvis)* [facility] [place] [address] XRay Report Signed Patient: Mele Sky MR#: [id number] 1230 : 1955 Acct:[id number] Age/Sex: 67 / M ADM Date: 04/30/23 Loc: [facility] Room: Type: [facility] Attending Dr: Em Melissa II, MD Copies to: Em Melissa MD Ordering Provider: mE Melissa MD Date of Service: 04/30/23 XR/XR hip LT min 2V(w/wo pelvis)*: History of total left hip arthroplasty Left hip 2 views. Reason for exam: Follow-up left AMANDEEP. COMPARISON: Left hip series 03/18/2023 FINDINGS: Left AMANDEEP without hardware complication. No acute bony process. XR/XR hip LT min 2V(w/wo pelvis)* IMPRESSION: No hardware complication. Impression dictated by: Chris Kuo Jr. DSethOSeth04/30/2023 2:53 PM Dictation Location: RADIO-PC-12 Transcribed By: GIA 04/30/23 1453 Dictated By: Chris Kuo Jr, 04/30/23 1453 Signed By: 04/30/23 1453 Normal [facility] XR hip LT min 2V(w/wo pelvis)* [facility] [employer] Other XR hip LT min 2V(w/wo pelvis)* [facility] [address] [place] [employer] Other XR hip LT min 2V(w/wo pelvis)* [address] [place] [address] [employer] Other XR hip LT min 2V(w/wo pelvis)* [place] [address] [employer] Other XR hip LT min 2V(w/wo pelvis)* XRay Report [employer] Other XR hip LT min 2V(w/wo pelvis)* Signed [employer] Other XR hip LT min 2V(w/wo pelvis)* Patient: Mele Sky MR#: [id number] [employer] Other XR hip LT min 2V(w/wo pelvis)* 1230 [employer] Other XR hip LT min 2V(w/wo pelvis)* : 1955 Acct:[id number] [employer] Other XR hip LT min 2V(w/wo pelvis)* Age/Sex: 67 / M ADM Date: 04/30/23 [employer] Other XR hip LT min 2V(w/wo pelvis)* Loc: [facility] Room: Type: [facility] [employer] Other XR hip LT min 2V(w/wo pelvis)* Attending Dr: Em Melissa II, MD [employer] Other XR hip LT min 2V(w/wo pelvis)* Copies to: Em Melissa MD [employer] Other XR hip LT min 2V(w/wo pelvis)* Ordering Provider: Em Melissa MD [employer] Other XR hip LT min 2V(w/wo pelvis)* Date of Service: 04/30/23 [employer] Other XR hip LT min 2V(w/wo pelvis)* XR/XR hip LT min 2V(w/wo pelvis)*: History of total left hip arthroplasty [employer] Other XR hip LT min 2V(w/wo pelvis)* Left hip 2 views. [employer] Other XR hip LT min 2V(w/wo pelvis)* Reason for exam: Follow-up left AMANDEEP. [employer] Other XR hip LT min 2V(w/wo pelvis)* COMPARISON: Left hip series 03/18/2023 [employer] Other XR hip LT min 2V(w/wo pelvis)* FINDINGS: Left AMANDEEP without hardware complication. No acute bony process. [employer] Other XR hip LT min 2V(w/wo pelvis)* XR/XR hip LT min 2V(w/wo pelvis)* [employer] Other XR hip LT min 2V(w/wo pelvis)* IMPRESSION: No hardware complication. [employer] Other XR hip LT min 2V(w/wo pelvis)* Impression dictated by: Fede Boone Jr.OSeth04/30/2023 2:53 PM [employer] Other XR hip LT min 2V(w/wo pelvis)* Dictation Location: [place] [address] [employer] Other XR hip LT min 2V(w/wo pelvis)* Transcribed By: PWS 04/30/23 1453 [employer] Other XR hip LT min 2V(w/wo pelvis)* Dictated By: Chris Kuo Jr, DO 04/30/23 1453 [employer] Other XR hip LT min 2V(w/wo pelvis)* Signed By: [employer] Other XR hip LT min 2V(w/wo pelvis)* 04/30/23 7983 [employer] Other Reminderson 04-20-2023 Reminders - From: Jessica Urrutia To: SHAZIA - Stefanie Shirley; Sent: 11/27/2022 08:18:29 EDT Show up: 03/30/2023 07:18:00 EST Subject: Schedule MARISOL Due Date/Time: 04/29/2023 07:18:00 EST Reminder Message Please Remember to:_Pt due for 6 mos KUB and MARISOL in 04/2023. Please schedule MARISOL and remind him that he will need a KUB for his 6 mos appt. PATIENT RELATED REMINDER:_ ( ) Call Patient ( ) Ask Patient to ( ) Call Relative ( ) Schedule Patient ( ) Follow up on Results ( ) Other: PROVIDER RELATED REMINDER:_ ( ) Insurance Processor ( ) Call Pharmacy ( ) Call Lab ( ) Other: Special Instructions:_ Comments:_ From: Paty Irving (SHAZIA - Stefanie Shirley) To: Barby Shirley MD; Sent: 04/20/2023 09:35:51 EST Show up: 04/20/2023 09:35:00 EST Subject: RE: Schedule MARISOL Does pt need MARISOL now or should it be closer to the time of 6 month appointment. Pt was just seen in February. From: Barby Shirley MD To: SHAZIA - Stefanie Shirley; Sent: 04/20/2023 19:38:17 EST Show up: 04/20/2023 19:38:00 EST Subject: RE: Schedule MARISOL Can be pushed back to 6-month appointment in October [facility] XR hip LT min 2V(w/wo pelvis )*on 03-18-2023 XR hip LT min 2V(w/wo pelvis)* [facility] [address] [place] [address] [place] [address] XRay Report Signed Patient: Mele Sky MR#: [id number] 1230 : 1955 Acct:[id number] Age/Sex: 67 / M ADM Date: 03/18/23 Loc: [facility] Room: Type: [facility] Attending Dr: Em Melissa II, MD Copies to: Em Melissa MD Ordering Provider: Em Melissa MD Date of Service: 03/18/23 XR/XR hip LT min 2V(w/wo pelvis)*: History of total left hip arthroplasty 2 views LEFT hip single view pelvis plain film COMPARISON: None HISTORY: Status post LEFT total hip arthroplasty ACUTE FINDINGS: 02/05/23 DEGENERATIVE CHANGE: Minor SI and RIGHT hip SOFT TISSUE FINDINGS: Unremarkable JOINT EFFUSION: None POSTOP CHANGES: . Stable hardware. BONY MINERALIZATION: Adequate XR/XR hip LT min 2V(w/wo pelvis)* IMPRESSION: Uncomplicated stable LEFT hip arthroplasty. Impression dictated by: Rodrigo Bishop M.D.03/18/2023 5:05 PM Dictation Location: [place] [address] Transcribed By: [facility] 03/18/231704 Dictated By: Rodrigo Bishop DO 03/18/231703 Signed By: 03/18/23 [facility] Consent for Procedure/Surger n 03-11-2023 Consent for Procedure/Surgery [id number] F [facility] Ambulatory Visit Summaryon 1 Ambulatory Visit Summary MELE SKY :1955 Visit Date:03/10/2023 Ambulatory Visit Instructions Your Diagnosis BPH with urinary obstruction Prostatitis History of urinary retention Kidney stones Your Care Team Attending Physician - Casper JENKINS, Barby Ramirez Primary Care Physician - IVAN LLOYD DO This Is Your Medications List Contact prescribing physician if questions or concerns calcium acetate furosemide (furosemide 40 mg Tab) levofloxacin (levofloxacin 250 mg Tab) oxycodone (oxyCODONE 5 mg Cap) pantoprazole (Pantoprazole [address] Tab) predniSONE (predniSONE 10 mg Tab) tamsulosin (tamsulosin 0.4 mg Cap) Procedures Performed Cystoscopy (03/10/2023), TRUS - Transrectal ultrasonography (03/10/2023), Colonoscopy, Gastric bypass, History of hernia repair, Procedure on upper arm. Discharge Vitals Heart Rate (Peripheral) 78 Blood Pressure 113/67 Height 184 cm Height 72 in Weight 83 kg Weight 182.6 lb BMI 24.52 What to do next Scheduled Follow-Up Appointments 2023 2:00 PM EDT With: Barby Shirley MD Where: [facility] Ambulatory Visit Summary MELE SKY :1955 Visit Date:03/10/2023 Ambulatory Visit Instructions Your Diagnosis BPH with urinary obstruction Prostatitis History of urinary retention Kidney stones Your Care Team Attending Physician - Barby Shirley MD Primary Care Physician - GABINO SAHA, IVAN This Is Your Medications List Contact prescribing physician if questions or concerns calcium acetate furosemide (furosemide 40 mg Tab) levofloxacin (levofloxacin 250 mg Tab) oxycodone (oxyCODONE 5 mg Cap) pantoprazole (Pantoprazole [address] Tab) predniSONE (predniSONE 10 mg Tab) tamsulosin (tamsulosin 0.4 mg Cap) Procedures Performed Cystoscopy (03/10/2023), TRUS - Transrectal ultrasonography (03/10/2023), Colonoscopy, Gastric bypass, History of hernia repair, Procedure on upper arm. Discharge Vitals Heart Rate (Peripheral) 78 Blood Pressure 113/67 Height 184 cm Height 72 in Weight 83 kg Weight 182.6 lb BMI 24.52 What to do next Scheduled Follow-Up Appointments 2023 2:00 PM EDT With: Barby Shirley MD Where: [facility] Patient Educationon 03-10-20 23 Patient Education Urology Benign Prostatic Hyperplasia Benign prostatic hyperplasia (BPH) is an enlarged prostate gland that is caused by the normal aging process. The prostate may get bigger as a man gets older. The condition is not caused by cancer. The prostate is a walnut-sized gland that is involved in the production of semen. It is located in front of the rectum and below the bladder. The bladder stores urine. The urethra carries stored urine out of the body. An enlarged prostate can press on the urethra. This can make it harder to pass urine. The buildup of urine in the bladder can cause infection. Back pressure and infection may progress to bladder damage and kidney (renal) failure. What are the causes? This condition is part of the normal aging process. However, not all men develop problems from this condition. If the prostate enlarges away from the urethra, urine flow will not be blocked. If it enlarges toward the urethra and compresses it, there will be problems passing urine. What increases the risk? This condition is more likely to develop in men older than 50 years. What are the signs or symptoms? Symptoms of this condition include: ? Getting up often during the night to urinate. ? Needing to urinate frequently during the day. ? Difficulty starting urine flow. ? Decrease in size and strength of your urine stream. ? Leaking (dribbling) after urinating. ? Inability to pass urine. This needs immediate treatment. ? Inability to completely empty your bladder. ? Pain when you pass urine. This is more common if there is also an infection. ? Urinary tract infection (UTI). How is this diagnosed? This condition is diagnosed based on your medical history, a physical exam, and your symptoms. Tests will also be done, such as: ? A post-void bladder scan. This measures any amount of urine that may remain in your bladder after you finish urinating. ? A digital rectal exam. In a rectal exam, your health care provider checks your prostate by putting a lubricated, gloved finger into your rectum to feel the back of your prostate gland. This exam detects the size of your gland and any abnormal lumps or growths. ? An exam of your urine (urinalysis). ? A prostate specific antigen (PSA) screening. This is a blood test used to screen for prostate cancer. ? An ultrasound. This test uses sound waves to electronically produce a picture of your prostate gland. Your health care provider may refer you to a specialist in kidney and prostate diseases (urologist). How is this treated? Once symptoms begin, your health care provider will monitor your condition (active surveillance or watchful waiting). Treatment for this condition will depend on the severity of your condition. Treatment may include: ? Observation and yearly exams. This may be the only treatment needed if your condition and symptoms are mild. ? Medicines to relieve your symptoms, including: ? Medicines to shrink the prostate. ? Medicines to relax the muscle of the prostate. ? Surgery in severe cases. Surgery may include: ? Prostatectomy. In this procedure, the prostate tissue is removed completely through an open incision or with a laparoscope or robotics. ? Transurethral resection of the prostate (TURP). In this procedure, a tool is inserted through the opening at the tip of the penis (urethra). It is used to cut away tissue of the inner core of the prostate. The pieces are removed through the same opening of the penis. This removes the blockage. ? Transurethral incision (TUIP). In this procedure, small cuts are made in the prostate. This lessens the prostate's pressure on the urethra. ? Transurethral microwave thermotherapy (TUMT). This procedure uses microwaves to create heat. The heat destroys and removes a small amount of prostate tissue. ? Transurethral needle ablation (TUNA). This procedure uses radio frequencies to destroy and remove a small amount of prostate tissue. ? Interstitial laser coagulation (ILC). This procedure uses a laser to destroy and remove a small amount of prostate tissue. ? Transurethral electrovaporization (TUVP). This procedure uses electrodes to destroy and remove a small amount of prostate tissue. ? Prostatic urethral lift. This procedure inserts an implant to push the lobes of the prostate away from the urethra. Follow these instructions at home: ? Take gzcz-rgl-wgvmrip and prescription medicines only as told by your health care provider. ? Monitor your symptoms for any changes. Contact your health care provider with any changes. ? Avoid drinking large amounts of liquid before going to bed or out in public. ? Avoid or reduce how much caffeine or alcohol you drink. ? Give yourself time when you urinate. ? Keep all follow-up visits. This is important. Contact a health care provider if: ? You have unexplained back pain. ? Your symptoms do not get better with treatment. ? You develop side effects from the medicine (more content not included)... Normal [facility] Urology Office/Clinic Noteon 03-10-2023 Urology Office/Clinic Note Chief Complaint Pt is here for cysto/TRUS HPI Staff 67 yo male here for cysto. History of Present Illness Tests reviewed: none I have reviewed the previous health record information and history for this patient from Dr. Shirley. I have reviewed and verified the staff HPI to be accurate for this encounter. Review of Systems PHQ Score Initial Depression Screen Score: 0 ROS - Provider Constitutional: denies weight loss, denies hot flashes. Eyes: denies eye problems. Gastrointestinal: denies nausea, denies vomiting. Cardiovascular: denies chest pain or angina. Integumentary: no dryness Musculoskeletal: denies musculoskeletal symptoms. ENMT: denies otolaryngeal symptoms. Respiratory: no shortness of breath. Heme/Lymph: denies easy bleeding tendency, denies easy bruising tendency. Psychiatric: no confusion, no anxiety. Genitourinary: See HPI. Physical Exam Vitals & Measurements HR: 78(Peripheral) BP: 113/67 HT: 72 in HT: 184 cm WT: 83 kg WT: 182.6 lb BMI: 24.52 General Appearance: alert, no distress, well nourished, well developed male. Genitourinary: normal scrotum, normal testes, normal urethra, normal epididymis, normal vas deferens/spermatic cord. Flank Pain: none. Bladder: nonpalpable. Procedure Operative Information Anesthesia Type: Local Procedure: Local Cystoscopy Complications: None Surgical risks, benefits, details of the procedure have been explained to the patient. Full informed consent has been obtained. Intraoperative Information Prepped: Patient is brought back to the endoscopy suite. Patient is placed in supine position. Patient prepped in the usual fashion with Betadine solution. 2% Xylocaine Jelly is placed per Urethra. After waiting several minutes, the Cystoscope is introduced. The Urethra is: Normal The Prostatic Urethra is: mild obstruction, bilobar hypertrophy, global mass effect into bladder base The Bladder: Normal- no tumors or lesions , Trabeculated: _1-2+ The Ureteral orifices: Show efflux of clear urine Specimens Removed: None Removal: Cystoscope is removed. The patient tolerated it well. Patient is discharged home. Follow up arranged. Assessment/Plan 67 yo male with history of gastric bypass revision complicated by GI bleed, severe anemia and FITO on dialysis initially presented with urinary retention s/p freeman placement 09/08/22 [1] Cont with dialysis 3x/week, having difficulty with this. Recently placed on [facility] transplant list. 1. History of prostatitis (Z87.438: Personal history of other diseases of male genital organs) UCx: 11/24/22 - E. coli 40-50k, gayle sensitive. Pt does not recall what abx he was treated with, first course was 6 wk. Would receive right after dialysis. Dr. Lloyd extended course another 3 wk due to sxs returning, has one pill left. Prostate was nontender 01/29/23. Cysto done IO today did not show significantly obstructing prostate. No infections since last seen. -Continue tamsulosin. Continue timed voids. Patient to notify us if he develops any more symptoms. 2. BPH with urinary obstruction (N40.1: Benign prostatic hyperplasia with lower urinary tract symptoms) Measured volume from CT scan - 48 gm prostate. [2] Taking Tamsulosin 0.4mg qd. Pt had cysto done IO today wo complications. Found to have mild prostate obstruction with 1-2+ trabeculations. Difficult to discern urinary habits given dialysis, patient states they run him dry. Advised patient for timed voids during days of dialysis to prevent recurrence of obstruction. Follow up in October w/ PVR or sooner if needed. Pt understands and agrees with plan. -Cont Tamsulosin Ordered: lidocaine topical, 11 mL, Gel-Siri, Topical, Once, Stop date 03/10/23 13:35:00 EDT, Routine, Start date 03/10/23 13:35:00 EDT 23303 Cystourethroscopy 3. History of urinary retention (Z87.898: Personal history of other specified conditions) PVR (cc): 11/27/22 - 13 01/29/23 - 397 *random scan, last voided about an hour ago. Pt should be able to void with this volume.[3] [facility] 09/08/22 for urinary frequency. Pt was placed with a catheter at visit. Failed voiding trial during admission. Voiding trial IO 10/20/22. [4] -Cont timed voids and Tamsulosin Ordered: lidocaine topical, 11 mL, Gel-Siri, Topical, Once, Stop date 03/10/23 13:35:00 EDT, Routine, Start date 03/10/23 13:35:00 EDT 08314 Cystourethroscopy 4. Kidney stones (N20.0: Calculus of kidney) [facility] 09/08/22 due to urinary frequency and pain. CT AP wo con 09/08/22 [facility] Bilateral nephrolithiasis w/ no obstruction and moderate bladder wall thickening. Personal review: Right at least 10 stones measuring up to 11 x 5 mm, Left about 4 stones up to 10 x 5 mm. Given patient remains on dialysis, unlikely to undergo treatment for the stones at this time. If required for transplant surgery we can proceed. -Due for KUB and MARISOL 04/2023 (recall previously placed). Could be contributing to #1. Will wait for treatment until he is more recover (more content not included)... Normal [facility] Comment on above: Result Comment: Elec tronically Signed By: Casper JENKINS, Barby Ramirez\.br\Date and Time Signed: 03/10/23 13:57 EDT\.br\Electronically Co-Signed By: Jennie Carpenter\.br\Date and Time Co-Signed: 03/10/23 13:50 EDT US AV Fistulaon 03-09-2023 US AV Fistula [facility] [address] [place] [address] [place] [address] Ultrasound Report Signed Patient: Mele Sky MR#: [id number] 1230 : 1955 Acct:[id number] Age/Sex: 67 / M ADM Date: 03/08/23 Loc: ER Room: Type: [facility] ER Attending Dr: Ordering Provider: Shahab Jones DO Date of Service: 03/08/23 US/US AV Fistula: swelling pain, post op 4d Copies to: Shahab Jones DO Duplex examination left upper arm dialysis graft Indication for study: Left arm pain PROCEDURE: Color-flow duplex scanning is used to interrogate the patient's left upper arm prosthetic graft. The graft is patent without focal stenosis. The velocities throughout the course the graft range from 1402 2000 cc/m. US/US AV Fistula IMPRESSION: Patent left upper arm dialysis graft with excellent flow Impression dictated by: Rodrigo Miller M.D.03/09/2023 4:25 PM Dictation Location: [place] [address] Tech: Jenny Mullen Transcribed By: GIA 03/09/231624 Dictated By: Rodrigo Miller MD 03/09/231623 Signed By: 03/09/231624 Normal [facility] Activated partial thrombopla stin time (aPTT) in platelet poor plasma by coagulation aOrdered By: Shahab Jones on 03-08-2023 aPTT Coag (PPP) [Time] 30.2 s 25.1-36.5 [facility] Comment on above: A hematocrit value g reater than 55% may lead to inaccurate results in coagulation testing. Patients having hematocrit values >55% require a special collection tube for coagulation studies. Please contact the laboratory at [phone] for redraw instructions. Alanine aminotransferase [En zymatic activity/volume] in Serum or PlasmaOrdered By: Shahab Jones on 03-08-2023 ALT [Catalytic activity/Vol] 12 U/L 7-52 [facility] Albumin [Mass/volume] in Ser um or Plasma by Bromocresol green (BCG) dye binding methoOrdered By: Shahab Jones on 03-08-2023 Albumin BCG dye [Mass/Vol] 3.8 g/dL 3.5-5.7 [facility] Alkaline phosphatase [Enzyma tic activity/volume] in Serum or PlasmaOrdered By: Shahab Jones on 03-08-2023 ALP [Catalytic activity/Vol] 57 U/L 34-104 [facility] Aspartate aminotransferase [ Enzymatic activity/volume] in Serum or PlasmaOrdered By: Shahab Jones on 03-08-2023 AST [Catalytic activity/Vol] 15 U/L 13-39 [facility] Bacterial blood cultureOrder ed By: Shahab Jones on 03-08-2023 Bacteria identified Cx Nom (Bld) NO GROWTH 5 DAYS [facility] Basophils Auto (Bld) [#/Vol] Ordered By: Shahab Jones on 03-08-2023 Basophils (Bld) [#/Vol] 0.0 10*3/uL 0.0-0.2 [facility] Basophils/100 WBC Auto (Bld) Ordered By: Shahab Jones on 03-08-2023 Basophils/100 WBC (Bld) 0.6 % . [facility] Bilirubin.total [Mass/volume ] in Serum or PlasmaOrdered By: Shahab Jones on 03-08-2023 Bilirubin [Mass/Vol] 0.5 mg/dL 0.3-1.0 [facility] Blood Cultureon 03-08-2023 Bacteria identified Cx Nom (Bld) NO GROWTH 5 DAYS PERFORMED BY: [facility] [address] [place] [address] PATHOLOGIST SCRUBBING MACHINE OPERATOR RADHA PETERSON M.D. [facility] Comment on above: Performed By: #### C UBLD, CBC, PP, LACTIC, CMP ####[place] [id number] [place] [id number] [facility] Bacteria identified Cx Nom (Bld) NO GROWTH 5 DAYS PERFORMED BY: [facility] [address] [address] PATHOLOGIST SCRUBBING MACHINE OPERATOR RADHA PETERSON M.D. [facility] Comment on above: Performed By: #### C UBLD, CBC, PP, LACTIC, CMP ####[place] [id number] [facility] Calcium [Mass/volume] in Ser um or PlasmaOrdered By: Shahab Jones on 03-08-2023 Calcium [Mass/Vol] 8.7 mg/dL 8.6-10.3 [facility] Carbon dioxide, total [Moles /volume] in Serum or PlasmaOrdered By: Shahab Jones on 03-08-2023 CO2 [Moles/Vol] 27.4 mmol/L 21.0-31.0 [facility] Chloride [Moles/volume] in S franky or PlasmaOrdered By: Shahab Jones on 03-08-2023 Chloride [Moles/Vol] 99 mmol/L 98-107 [facility] Coagulation Profileon 2022 aPTT Coag (Bld) [Time] 30.2 s Normal 25.1-36.5 [facility] Comment on above: Result Comment: A he matocrit value greater than 55% may lead to inaccurate results in coagulation testing. Patients having hematocrit values >55% require a special collection tube for coagulation studies. Please contact the laboratory at [phone] for redraw instructions. PERFORMED BY: [facility] [address] [id number] PATHOLOGIST SCRUBBING MACHINE OPERATOR RADHA PETERSON M.D. Performed By: #### C UBLD, CBC, PP, LACTIC, CMP ####[place] [id number] [place] [id number] [facility] INR Coag (PPP) [Relative time] 1.1 {INR} Normal [facility] Comment on above: Result Comment: INR Therapeutic Range A) Pre- and Peroperative OAT started two weeks before surgery. NOT HIP SURGERY: 1.5 - 2.5 HIP SURGERY: 2 - 3 B) Primary and secondary prevention of venous THROMBOSIS: 2 - 3 C) Active venous thrombosis, pulmonary embolism and prevention of recurrent venous thrombosis: 2 - 3 D) Prevention of arterial thromboembolism including patients with mechanical heart valves: 3 - 4.5 Performed By: #### C UBLD, CBC, PP, LACTIC, CMP ####[place] [id number] [facility] PT Coag (PPP) [Time] 12.8 s Normal 9.0-12.9 [facility] Comment on above: Result Comment: A he matocrit value greater than 55% may lead to inaccurate results in coagulation testing. Patients having hematocrit values >55% require a special collection tube for coagulation studies. Please contact the laboratory at [phone] for redraw instructions. Performed By: #### C UBLD, CBC, PP, LACTIC, CMP ####[place] [id number] [place] [id number] [facility] Complete Blood Count Auto Di ffon 03-08-2023 Basophils (Bld) [#/Vol] 0.0 10*3/uL Normal 0.0-0.2 [facility] Comment on above: Result Comment: PERF ORMED BY: [facility] [address] [id number] PATHOLOGIST SCRUBBING MACHINE OPERATOR RADHA PETERSON M.D. Performed By: #### C UBLD, CBC, PP, LACTIC, CMP ####[address] Basophils/100 WBC (Bld) 0.6 % Normal . [facility] Comment on above: Performed By: #### C UBLD, CBC, PP, LACTIC, CMP ####[address] Eosinophils (Bld) [#/Vol] 0.3 10*3/uL Normal 0.0-0.45 [facility] Comment on above: Performed By: #### C UBLD, CBC, PP, LACTIC, CMP ####[address] Eosinophils/100 WBC (Bld) 4.3 % Normal . [facility] Comment on above: Performed By: #### C UBLD, CBC, PP, LACTIC, CMP ####[address] Erythrocyte distribution width (RBC) [Ratio] 14.8 % Normal 12.0-14.8 [facility] Comment on above: Performed By: #### C UBLD, CBC, PP, LACTIC, CMP ####[address] Hematocrit (Bld) [Volume fraction] 30.1 % Low 38.8-50.0 [facility] Comment on above: Performed By: #### C UBLD, CBC, PP, LACTIC, CMP ####[address] Hemoglobin (Bld) [Mass/Vol] 10.1 g/dL Low 13.0-17.0 [facility] Comment on above: Performed By: #### C UBLD, CBC, PP, LACTIC, CMP ####[address] Lymphocytes (Bld) [#/Vol] 0.9 10*3/uL Low 1.00-4.8 [facility] Comment on above: Performed By: #### C UBLD, CBC, PP, LACTIC, CMP ####[address] Lymphocytes/100 WBC (Bld) 14.4 % Normal . [facility] Comment on above: Performed By: #### C UBLD, CBC, PP, LACTIC, CMP ####[address] MCH (RBC) [Entitic mass] 32.8 pg Normal 27.5-35.2 [facility] Comment on above: Performed By: #### C UBLD, CBC, PP, LACTIC, CMP ####[address] MCV (RBC) [Entitic vol] 97.6 fL Normal 83.5-101 [facility] Comment on above: Performed By: #### C UBLD, CBC, PP, LACTIC, CMP ####[address] Mean Corpuscular HGB Conc 33.6 g/dL Normal 32.5-35.6 [facility] Comment on above: Performed By: #### C UBLD, CBC, PP, LACTIC, CMP ####[address] Monocytes (Bld) [#/Vol] 0.5 10*3/uL Normal 0.0-0.8 [facility] Comment on above: Performed By: #### C UBLD, CBC, PP, LACTIC, CMP ####[address] Monocytes/100 WBC (Bld) 18.50 % Normal 0.00-20.00 [facility] Comment on above: Performed By: #### C UBLD, CBC, PP, LACTIC, CMP ####[address] Monocytes/100 WBC (Bld) 8.4 % Normal . [facility] Comment on above: Performed By: #### C UBLD, CBC, PP, LACTIC, CMP ####[address] Neutrophils (Bld) [#/Vol] 4.7 10*3/uL Normal 1.8-7.7 [facility] Comment on above: Performed By: #### C UBLD, CBC, PP, LACTIC, CMP ####[address] Neutrophils/100 WBC (Bld) 72.3 % Normal . [facility] Comment on above: Performed By: #### C UBLD, CBC, PP, LACTIC, CMP ####[address] NRBC% 0.0 /100{WBC} Normal 0-0.5 [facility] Comment on above: Performed By: #### C UBLD, CBC, PP, LACTIC, CMP ####[address] Platelet mean volume (Bld) [Entitic vol] 6.9 fL Normal 6.6-10.1 [facility] Comment on above: Performed By: #### C UBLD, CBC, PP, LACTIC, CMP ####[address] Platelets (Bld) [#/Vol] 198 10*3/uL Normal 150-450 [facility] Comment on above: Performed By: #### C UBLD, CBC, PP, LACTIC, CMP ####[address] RBC (Bld) [#/Vol] 3.09 10*6/uL Low 3.90-5.60 [facility] Comment on above: Performed By: #### C UBLD, CBC, PP, LACTIC, CMP ####[address] WBC (Bld) [#/Vol] 6.5 10*3/uL Normal 4.1-10.5 [facility] Comment on above: Performed By: #### C UBLD, CBC, PP, LACTIC, CMP ####[address] Comprehensive Metabolic Pane adalid 03-08-2023 Albumin [Mass/Vol] 3.8 g/dL Normal 3.5-5.7 [facility] Comment on above: Performed By: #### C UBLD, CBC, PP, LACTIC, CMP ####[place] [id number] [place] [id number] [facility] Albumin/Globulin [Mass ratio] 1.3 {ratio} Normal [facility] Comment on above: Performed By: #### C UBLD, CBC, PP, LACTIC, CMP ####[place] [id number] [facility] ALP [Catalytic activity/Vol] 57 U/L Normal 34-104 [facility] Comment on above: Performed By: #### C UBLD, CBC, PP, LACTIC, CMP ####[place] [id number] [facility] ALT [Catalytic activity/Vol] 12 U/L Normal 7-52 [facility] Comment on above: Performed By: #### C UBLD, CBC, PP, LACTIC, CMP ####[address] [address] [facility] Anion gap [Moles/Vol] 15.5 mmol/L High 6.0-15.0 [facility] Comment on above: Performed By: #### C UBLD, CBC, PP, LACTIC, CMP ####[address] [address] [facility] AST [Catalytic activity/Vol] 15 U/L Normal 13-39 [facility] Comment on above: Performed By: #### C UBLD, CBC, PP, LACTIC, CMP ####[address] [address] [facility] Bilirubin [Mass/Vol] 0.5 mg/dL Normal 0.3-1.0 [facility] Comment on above: Performed By: #### C UBLD, CBC, PP, LACTIC, CMP ####[address] [address] [facility] Calcium [Mass/Vol] 8.7 mg/dL Normal 8.6-10.3 [facility] Comment on above: Performed By: #### C UBLD, CBC, PP, LACTIC, CMP ####[address] Chloride [Moles/Vol] 99 mmol/L Normal 98-107 [facility] Comment on above: Performed By: #### C UBLD, CBC, PP, LACTIC, CMP ####[address] CO2 [Moles/Vol] 27.4 mmol/L Normal 21.0-31.0 [facility] Comment on above: Performed By: #### C UBLD, CBC, PP, LACTIC, CMP ####[address] Creatinine [Mass/Vol] 6.38 mg/dL High 0.70-1.30 [facility] Comment on above: Performed By: #### C UBLD, CBC, PP, LACTIC, CMP ####[address] Creatinine Clr Calc Pharmacy 12.67 [facility] Comment on above: Result Comment: PERF ORMED BY: [facility] [address] [place] [address] PATHOLOGIST SCRUBBING MACHINE OPERATOR RADHA PETERSON M.D. Performed By: #### C UBLD, CBC, PP, LACTIC, CMP ####[address] GFR/1.73 sq M.predicted MDRD (S/P/Bld) [Vol rate/Area] 9.037 mL/min/{1.73_m2} [facility] Comment on above: Performed By: #### C UBLD, CBC, PP, LACTIC, CMP ####[address] Globulin (S) [Mass/Vol] 2.9 g/dL [facility] Comment on above: Performed By: #### C UBLD, CBC, PP, LACTIC, CMP ####[place] [id number] [facility] Glucose [Mass/Vol] 95 mg/dL Normal 70-100 [facility] Comment on above: Result Comment: [place] Glucose Reference Range is dependent on time and content of last meal. Glucose of more than 200 mg/dL in a nonstressed, ambulatory subject supports the diagnosis of Diabetes Mellitus. ADA recommended reference range Performed By: #### C UBLD, CBC, PP, LACTIC, CMP ####[address] Potassium [Moles/Vol] 3.9 mmol/L Normal 3.5-5.1 [facility] Comment on above: Performed By: #### C UBLD, CBC, PP, LACTIC, CMP ####[address] Protein [Mass/Vol] 6.7 g/dL Normal 6.4-8.9 [facility] Comment on above: Performed By: #### C UBLD, CBC, PP, LACTIC, CMP ####[place] [id number] [facility] Sodium [Moles/Vol] 138 mmol/L Normal 136-145 [facility] Comment on above: Performed By: #### C UBLD, CBC, PP, LACTIC, CMP ####[place] [id number] [facility] Urea nitrogen [Mass/Vol] 73 mg/dL High 7-25 [facility] Comment on above: Performed By: #### C UBLD, CBC, PP, LACTIC, CMP ####[address] Creatinine [Mass/volume] in Serum or PlasmaOrdered By: Shahab Jones on 03-08-2023 Creatinine [Mass/Vol] 6.38 mg/dL 0.70-1.30 [facility] Eosinophils Auto (Bld) [#/Vo l]Ordered By: Shahab Jones on 03-08-2023 Eosinophils (Bld) [#/Vol] 0.3 10*3/uL 0.0-0.45 [facility] Eosinophils/100 WBC Auto (Bl d)Ordered By: Shahab Jones on 03-08-2023 Eosinophils/100 WBC (Bld) 4.3 % . [facility] Erythrocyte distribution wid th Auto (RBC) [Ratio]Ordered By: Shahab Jones on 03-08-2023 Erythrocyte distribution width (RBC) [Ratio] 14.8 % 12.0-14.8 [facility] Globulin Calc (S) [Mass/Vol] Ordered By: Shahab Jones on 03-08-2023 Globulin (S) [Mass/Vol] 2.9 g/dL [facility] Glucose [Mass/volume] in Ser um or PlasmaOrdered By: Shahab Jones on 03-08-2023 Glucose [Mass/Vol] 95 mg/dL 70-100 [facility] Comment on above: ADA recommended refe rence rangeRandom Glucose Reference Range is dependent on time and content of last meal. Glucose of more than 200 mg/dL in a nonstressed, ambulatory subject supports the diagnosis of Diabetes Mellitus. Hematocrit Auto (Bld) [Volum e fraction]Ordered By: Shhaab Jones on 03-08-2023 Hematocrit (Bld) [Volume fraction] 30.1 % 38.8-50.0 [facility] Hemoglobin [Mass/volume] in BloodOrdered By: Shahab Jones 03-08-2023 Hemoglobin (Bld) [Mass/Vol] 10.1 g/dL 13.0-17.0 [facility] INR in Platelet poor plasma by Coagulation assayOrdered By: Shahab Jones 03-08-2023 INR Coag (PPP) [Relative time] 1.1 {INR} [facility] Comment on above: INR Therapeutic Rang e A) Pre- and Peroperative OAT started two weeks before surgery. NOT HIP SURGERY: 1.5 - 2.5 HIP SURGERY: 2 - 3B) Primary and secondary prevention of venous THROMBOSIS: 2 - 3C) Active venous thrombosis, pulmonary embolismand prevention of recurrent venous thrombosis: 2 - 3D) Prevention of arterial thromboembolismincluding patients with mechanical heart valves: 3 - 4.5 Lactate [Moles/volume] in Se rum or PlasmaOrdered By: Shahab Jones on 03-08-2023 Lactate [Moles/Vol] 0.4 mmol/L 0.5-2.2 [facility] Lactic Acidon 03-08-2023 Lactate [Moles/Vol] 0.4 mmol/L Normal 0.5-2.2 [facility] Comment on above: Result Comment: PERF ORMED BY: [facility] [address] [place] [address] PATHOLOGIST SCRUBBING MACHINE OPERATOR RADHA PETERSON M.D. Performed By: #### C UBLD, CBC, PP, LACTIC, CMP ####[facility] [place] [address] [facility] Leukocytes [#/volume] correc db for nucleated erythrocytes in Blood by Automated counOrdered By: Shahab Jones on 03-08-2023 WBC corrected for nucl RBC Auto (Bld) [#/Vol] 6.5 10*3/uL 4.1-10.5 [facility] Lymphocytes Auto (Bld) [#/Vo l]Ordered By: Shahab Jones on 03-08-2023 Lymphocytes (Bld) [#/Vol] 0.9 10*3/uL 1.00-4.8 [facility] Lymphocytes/100 WBC Auto (Bl d)Ordered By: Shahab Jones on 03-08-2023 Lymphocytes/100 WBC (Bld) 14.4 % . [facility] MCH Auto (RBC) [Entitic mass ]Ordered By: Shahab Jones on 03-08-2023 MCH (RBC) [Entitic mass] 32.8 pg 27.5-35.2 [facility] MCHC Auto (RBC) [Mass/Vol]Or dered By: Shahab Jones on 03-08-2023 MCHC (RBC) [Mass/Vol] 33.6 g/dL 32.5-35.6 [facility] MCV Auto (RBC) [Entitic vol] Ordered By: Shahab Jones on 03-08-2023 MCV (RBC) [Entitic vol] 97.6 fL 83.5-101 [facility] Monocyte distribution width [Entitic volume] in Blood by AutomatedOrdered By: Shahab Jones on 03-08-2023 Monocyte distribution width Auto (Bld) [Entitic vol] 18.50 % 0.00-20.00 [facility] Monocytes Auto (Bld) [#/Vol] Ordered By: Shahab Jones on 03-08-2023 Monocytes (Bld) [#/Vol] 0.5 10*3/uL 0.0-0.8 [facility] Monocytes/100 WBC Auto (Bld) Ordered By: Shahab Jones on 03-08-2023 Monocytes/100 WBC (Bld) 8.4 % . [facility] Neutrophils Auto (Bld) [#/Vo l]Ordered By: Shahab Jones on 03-08-2023 Neutrophils (Bld) [#/Vol] 4.7 10*3/uL 1.8-7.7 [facility] Neutrophils/100 WBC Auto (Bl d)Ordered By: Shahab Jones on 03-08-2023 Neutrophils/100 WBC (Bld) 72.3 % . [facility] No Panel InformationOrdered By: Shahab Jones on 03-08-2023 Estimated GFR (CKD-EPI) 9.037 mL/Min [facility] Creatinine Clearance (Chem 12.67 [facility] Nucleated erythrocytes [Pres ence] in Blood by Automated countOrdered By: Shahab Jones on 03-08-2023 Nucleated RBC Auto Ql (Bld) 0.0 /100{WBC} 0-0.5 [facility] Platelet mean volume Auto (B ld) [Entitic vol]Ordered By: Shahab Jones on 03-08-2023 Platelet mean volume (Bld) [Entitic vol] 6.9 fL 6.6-10.1 [facility] Platelets Auto (Bld) [#/Vol] Ordered By: Shahab Jones on 03-08-2023 Platelets (Bld) [#/Vol] 198 10*3/uL 150-450 [facility] Potassium [Moles/volume] in Serum or PlasmaOrdered By: Shahab oJnes on 03-08-2023 Potassium [Moles/Vol] 3.9 mmol/L 3.5-5.1 [facility] Protein [Mass/volume] in Ser um or PlasmaOrdered By: Shahab Jones on 03-08-2023 Protein [Mass/Vol] 6.7 g/dL 6.4-8.9 [facility] Prothrombin time (PT)Ordered By: Shahab Jones on 03-08-2023 PT Coag (PPP) [Time] 12.8 s 9.0-12.9 [facility] Comment on above: A hematocrit value g reater than 55% may lead to inaccurate results in coagulation testing. Patients having hematocrit values >55% require a special collection tube for coagulation studies. Please contact the laboratory at [phone] for redraw instructions. RBC Auto (Bld) [#/Vol]Ordere d By: Shahab Jones on 03-08-2023 RBC (Bld) [#/Vol] 3.09 10*6/uL 3.90-5.60 [facility] Serum or plasma albumin/glob ulin mass ratioOrdered By: Shahab Jones on 03-08-2023 Albumin/Globulin [Mass ratio] 1.3 {ratio} [facility] Serum or plasma anion gap de terminationOrdered By: Shahab Jones on 03-08-2023 Anion gap [Moles/Vol] 15.5 mmol/L 6.0-15.0 [facility] Sodium [Moles/volume] in Ser um or PlasmaOrdered By: Shahab Jones on 03-08-2023 Sodium [Moles/Vol] 138 mmol/L 136-145 [facility] Urea nitrogen [Mass/volume] in Serum or PlasmaOrdered By: Shahab Jones on 03-08-2023 Urea nitrogen [Mass/Vol] 73 mg/dL 7-25 [facility] WBC Auto (Bld) [#/Vol]Ordere d By: Shahab Jones on 03-08-2023 WBC (Bld) [#/Vol] 6.5 10*3/uL 4.1-10.5 [facility] Arterial blood standard base excess determination by calculationOrdered By: Rodrigo Miller on 03-05-2023 Base excess standard Calc (BldA) [Moles/Vol] 4 mmol/L -2-3 [facility] Blood carbon dioxide, total measurement by calculation (moles/volume)Ordered By: Rodrigo Miller on 03-05-2023 CO2 Calc (Bld) [Moles/Vol] 30 mmol/L [facility] CT biopsyOrdered By: Rodrigo Miller on 03-05-2023 Hematocrit (Bld) [Volume fraction] 35.0 % 38.0-51.0 [facility] Glucose Glucometer (BldC) [M ass/Vol]Ordered By: Rodrigo Miller on 03-05-2023 Glucose [Mass/Vol] 80 mg/dL 70-105 [facility] Hematocrit Auto (Bld) [Volum e fraction]Ordered By: Em Barakat on 03-05-2023 Hematocrit (Bld) [Volume fraction] 30.0 % 38.8-50.0 [facility] Hemoglobin Calc (Bld) [Mass/ Vol]Ordered By: Rodrigo Miller on 03-05-2023 Hemoglobin (Bld) [Mass/Vol] 11.9 g/dL 12.0-17.0 [facility] Hemoglobin [Mass/volume] in BloodOrdered By: Em Barakat on 03-05-2023 Hemoglobin (Bld) [Mass/Vol] 10.1 g/dL 13.0-17.0 [facility] Hemoglobin and Hematocriton 03-05-2023 Hematocrit (Bld) [Volume fraction] 30.0 % Low 38.8-50.0 [facility] Comment on above: Result Comment: PERF ORMED BY: [facility] [address] [place] [address] PATHOLOGIST SCRUBBING MACHINE OPERATOR RADHA PETERSON M.D. Performed By: #### H Cris K ####[facility] [place] [address] [facility] Hemoglobin (Bld) [Mass/Vol] 10.1 g/dL Low 13.0-17.0 [facility] Comment on above: Performed By: #### H Cris K ####[facility] [place] [address] [facility] ISTAT ABGon 03-05-2023 CO2 [Moles/Vol] 30 mmol/L High [facility] Comment on above: Performed By: #### I SABG ####[place] [id number] [facility] Glucose [Mass/Vol] 80 mg/dL Normal 70-105 [facility] Comment on above: Result Comment: PERF ORMED BY: [facility] [address] [place] [address] PATHOLOGIST SCRUBBING MACHINE OPERATOR RADHA PETERSON M.D. Performed By: #### I SABG ####[address] HCO3 (Bld) [Moles/Vol] 28.5 mmol/L High 22.0-28.0 [facility] Comment on above: Performed By: #### I SABG ####[address] Hematocrit (Bld) [Volume fraction] 35.0 % Low 38.0-51.0 [facility] Comment on above: Performed By: #### I SABG ####[address] Hemoglobin (Bld) [Mass/Vol] 11.9 g/dL Low 12.0-17.0 [facility] Comment on above: Performed By: #### I SABG ####[address] ISTAT Base Excess 4 mmol/L High -2 TO 3 [facility] Comment on above: Performed By: #### I SABG ####[address] ISTAT Ionized Calcium 1.14 mol/L Normal 1.12-1.32 [facility] Comment on above: Performed By: #### I SABG ####[address] ISTAT PCO2 45.7 mm[Hg] Normal 35-51 [facility] Comment on above: Performed By: #### I SABG ####[address] ISTAT Ph 7.403 Normal 7.31-7.45 [facility] Comment on above: Performed By: #### I SABG ####[facility] [address] [place] [address] [place] ISTAT PO2 38 mm[Hg] Low 80-105 [facility] Comment on above: Performed By: #### I SABG ####[address] [place] [address] [facility] Oxygen saturation in Blood 71 % Low 95-98 [facility] Comment on above: Result Comment: Refe rence ranges reflect baseline specimens only Performed By: #### I SABG ####[place] [address] [place] [address] [facility] Potassium [Moles/Vol] 3.6 mmol/L Normal 3.5-4.9 [facility] Comment on above: Performed By: #### I SABG ####[place] [id number] [facility] Sodium [Moles/Vol] 139 mmol/L Normal 138-146 [facility] Comment on above: Performed By: #### I SABG ####[address] [place] [address] [facility] Monocyte %Ordered By: Cassandra Miller on 03-05-2023 Monocyte % 45.7 mm[Hg] 35-51 [facility] Monocyte % 38 mm[Hg] 80-105 [facility] Potassiumon 03-05-2023 Potassium [Moles/Vol] 3.7 mmol/L Normal 3.5-5.1 [facility] Comment on above: Result Comment: PERF ORMED BY: [facility] [address] [place] [address] PATHOLOGIST SCRUBBING MACHINE OPERATOR RADHA PETERSON M.D. Performed By: #### H H, K ####[place] [address] [place] [address] [place] Potassium (Bld) [Moles/Vol]O rdered By: Rodrigo Miller on 03-05-2023 Potassium [Moles/Vol] 3.6 mmol/L 3.5-4.9 [facility] Potassium [Moles/volume] in Serum or PlasmaOrdered By: Em Barakat on 03-05-2023 Potassium [Moles/Vol] 3.7 mmol/L 3.5-5.1 [facility] Sodium (Bld) [Moles/Vol]Orde red By: Rodrigo Miller on 03-05-2023 Sodium [Moles/Vol] 139 mmol/L 138-146 [facility] Whole blood bicarbonate yanet urementOrdered By: Rodrigo Miller on 03-05-2023 HCO3 (Bld) [Moles/Vol] 28.5 mmol/L 22.0-28.0 [facility] Whole blood ionized calcium measurement (moles/volume)Ordered By: Rodrigo Miller on 03-05-2023 Calcium.ionized (Bld) [Moles/Vol] 1140 mmol/L 1.12-1.32 [facility] Whole blood oxygen saturatio n measurementOrdered By: Rodrigo Miller on 03-05-2023 Oxygen saturation in Blood 71 % 95-98 [facility] Comment on above: Reference ranges ref lect baseline specimens only Whole blood pHOrdered By: Parminder Miller on 03-05-2023 pH (Bld) 7.403 Units 7.31-7.45 [facility] CNPNon 02-11-2023 CNPN Normal [facility] [facility] Basic Metabolic Panelon 01-17 Anion gap [Moles/Vol] 11.4 mmol/L Normal 6.0-15.0 [facility] Comment on above: Performed By: #### B MP, CBC ####[facility] [id number] [place] [address] [facility] Calcium [Mass/Vol] 7.9 mg/dL Significant change down 8.6-10.3 [facility] Comment on above: Performed By: #### B MP, CBC ####[facility] [id number] [place] [address] [facility] Chloride [Moles/Vol] 102 mmol/L Normal 98-107 [facility] Comment on above: Performed By: #### B MP, CBC ####[facility] [place] [address] [facility] CO2 [Moles/Vol] 25.6 mmol/L Normal 21.0-31.0 [facility] Comment on above: Performed By: #### B MP, CBC ####[address] [place] [place] [address] [facility] Creatinine [Mass/Vol] 6.02 mg/dL Significan t change up 0.70-1.30 [facility] Comment on above: Performed By: #### B MP, CBC ####[address] [place] [address] [place] Creatinine Clr Calc Pharmacy 13.43 [facility] Comment on above: Result Comment: PERF ORMED BY: [facility] [address] [place] [id number] PATHOLOGIST SCRUBBING MACHINE OPERATOR RADHA PETERSON M.D. Performed By: #### B MP, CBC ####[place] [id number] [facility] GFR/1.73 sq M.predicted MDRD (S/P/Bld) [Vol rate/Area] 9.689 mL/min/{1.73_m2} [facility] Comment on above: Performed By: #### B MP, CBC ####[place] [id number] [facility] Glucose [Mass/Vol] 115 mg/dL High 70-100 [facility] Comment on above: Result Comment: [place] Glucose Reference Range is dependent on time and content of last meal. Glucose of more than 200 mg/dL in a nonstressed, ambulatory subject supports the diagnosis of Diabetes Mellitus. ADA recommended reference range Performed By: #### B MP, CBC ####[place] [id number] [facility] Potassium [Moles/Vol] 4.0 mmol/L Normal 3.5-5.1 [facility] Comment on above: Performed By: #### B MP, CBC ####[place] [id number] [place] Sodium [Moles/Vol] 135 mmol/L Low 136-145 [facility] Comment on above: Performed By: #### B MP, CBC ####[facility] Urea nitrogen [Mass/Vol] 42 mg/dL High 7-25 [facility] Comment on above: Performed By: #### B MP, CBC ####[facility] Basophils Auto (Bld) [#/Vol] Ordered By: Em Melissa on 02-06-2023 Basophils (Bld) [#/Vol] 0.0 10*3/uL 0.0-0.2 [facility] Basophils/100 WBC Auto (Bld) Ordered By: Em Melissa on 02-06-2023 Basophils/100 WBC (Bld) 0.1 % . [facility] Calcium [Mass/volume] in Ser um or PlasmaOrdered By: Em Melissa on 02-06-2023 Calcium [Mass/Vol] 7.9 mg/dL 8.6-10.3 [facility] Comment on above: Delta: 9.5 on -0429 Carbon dioxide, total [Moles /volume] in Serum or PlasmaOrdered By: Em Melissa on 02-06-2023 CO2 [Moles/Vol] 25.6 mmol/L 21.0-31.0 [facility] Chloride [Moles/volume] in S franky or PlasmaOrdered By: Em Melissa on 02-06-2023 Chloride [Moles/Vol] 102 mmol/L 98-107 [facility] Complete Blood Count Auto Di ffon 02-06-2023 Basophils (Bld) [#/Vol] 0.0 10*3/uL Normal 0.0-0.2 [facility] Comment on above: Result Comment: PERF ORMED BY: [facility] [address] [place] [id number] PATHOLOGIST SCRUBBING MACHINE OPERATOR RADHA PETERSON M.D. Performed By: #### B MP, CBC ####[place] [address] Basophils/100 WBC (Bld) 0.1 % Normal . [facility] Comment on above: Performed By: #### B MP, CBC ####[address] Eosinophils (Bld) [#/Vol] 0.0 10*3/uL Normal 0.0-0.45 [facility] Comment on above: Performed By: #### B MP, CBC ####[address] Eosinophils/100 WBC (Bld) 0.0 % Normal . [facility] Comment on above: Performed By: #### B MP, CBC ####[address] Erythrocyte distribution width (RBC) [Ratio] 16.0 % High 12.0-14.8 [facility] Comment on above: Performed By: #### B MP, CBC ####[address] Hematocrit (Bld) [Volume fraction] 30.0 % Low 38.8-50.0 [facility] Comment on above: Performed By: #### B MP, CBC ####[address] Hemoglobin (Bld) [Mass/Vol] 10.2 g/dL Low 13.0-17.0 [facility] Comment on above: Performed By: #### B MP, CBC ####[address] Lymphocytes (Bld) [#/Vol] 0.5 10*3/uL Low 1.00-4.8 [facility] Comment on above: Performed By: #### B MP, CBC ####[address] Lymphocytes/100 WBC (Bld) 5.4 % Normal . [facility] Comment on above: Performed By: #### B MP, CBC ####[address] MCH (RBC) [Entitic mass] 32.8 pg Normal 27.5-35.2 [facility] Comment on above: Performed By: #### B MP, CBC ####[address] MCV (RBC) [Entitic vol] 96.9 fL Normal 83.5-101 [facility] Comment on above: Performed By: #### B MP, CBC ####[address] Mean Corpuscular HGB Conc 33.8 g/dL Normal 32.5-35.6 [facility] Comment on above: Performed By: #### B MP, CBC ####[address] Monocytes (Bld) [#/Vol] 0.5 10*3/uL Normal 0.0-0.8 [facility] Comment on above: Performed By: #### B MP, CBC ####[address] Monocytes/100 WBC (Bld) 6.1 % Normal . [facility] Comment on above: Performed By: #### B MP, CBC ####[address] Neutrophils (Bld) [#/Vol] 7.6 10*3/uL Normal 1.8-7.7 [facility] Comment on above: Performed By: #### B MP, CBC ####[address] Neutrophils/100 WBC (Bld) 88.4 % Normal . [facility] Comment on above: Performed By: #### B MP, CBC ####[address] NRBC% 0.0 /100{WBC} Normal 0-0.5 [facility] Comment on above: Performed By: #### B MP, CBC ####[address] Platelet mean volume (Bld) [Entitic vol] 6.9 fL Normal 6.6-10.1 [facility] Comment on above: Performed By: #### B MP, CBC ####[address] [place] [id number] [facility] Platelets (Bld) [#/Vol] 159 10*3/uL Normal 150-450 [facility] Comment on above: Performed By: #### B MP, CBC ####[place] [address] RBC (Bld) [#/Vol] 3.10 10*6/uL Low 3.90-5.60 [facility] Comment on above: Performed By: #### B MP, CBC ####[place] [address] WBC (Bld) [#/Vol] 8.6 10*3/uL Normal 4.1-10.5 [facility] Comment on above: Performed By: #### B MP, CBC ####[address] Creatinine [Mass/volume] in Serum or PlasmaOrdered By: Em Melissa on 02-06-2023 Creatinine [Mass/Vol] 6.02 mg/dL 0.70-1.30 [facility] Comment on above: Delta: 5.05 on 02/05-0429 Eosinophils Auto (Bld) [#/Vo l]Ordered By: Em Melissa on 02-06-2023 Eosinophils (Bld) [#/Vol] 0.0 10*3/uL 0.0-0.45 [facility] Eosinophils/100 WBC Auto (Bl d)Ordered By: Em Melissa on 02-06-2023 Eosinophils/100 WBC (Bld) 0.0 % . [facility] Erythrocyte distribution wid th Auto (RBC) [Ratio]Ordered By: Em Melissa on 02-06-2023 Erythrocyte distribution width (RBC) [Ratio] 16.0 % 12.0-14.8 [facility] Glucose [Mass/volume] in Ser um or PlasmaOrdered By: Em Melissa on 02-06-2023 Glucose [Mass/Vol] 115 mg/dL 70-100 [facility] Comment on above: ADA recommended refe rence rangeRandom Glucose Reference Range is dependent on time and content of last meal. Glucose of more than 200 mg/dL in a nonstressed, ambulatory subject supports the diagnosis of Diabetes Mellitus. Hematocrit Auto (Bld) [Volum e fraction]Ordered By: Em Melissa on 02-06-2023 Hematocrit (Bld) [Volume fraction] 30.0 % 38.8-50.0 [facility] Hemoglobin [Mass/volume] in BloodOrdered By: Em Melissa on 02-06-2023 Hemoglobin (Bld) [Mass/Vol] 10.2 g/dL 13.0-17.0 [facility] Leukocytes [#/volume] correc db for nucleated erythrocytes in Blood by Automated counOrdered By: Em Melissa on 02-06-2023 WBC corrected for nucl RBC Auto (Bld) [#/Vol] 8.6 10*3/uL 4.1-10.5 [facility] Lymphocytes Auto (Bld) [#/Vo l]Ordered By: Em Melissa on 02-06-2023 Lymphocytes (Bld) [#/Vol] 0.5 10*3/uL 1.00-4.8 [facility] Lymphocytes/100 WBC Auto (Bl d)Ordered By: Em Melissa on 02-06-2023 Lymphocytes/100 WBC (Bld) 5.4 % . [facility] MCH Auto (RBC) [Entitic mass ]Ordered By: Em Melissa on 02-06-2023 MCH (RBC) [Entitic mass] 32.8 pg 27.5-35.2 [facility] MCHC Auto (RBC) [Mass/Vol]Or dered By: Em Melissa on 02-06-2023 MCHC (RBC) [Mass/Vol] 33.8 g/dL 32.5-35.6 [facility] MCV Auto (RBC) [Entitic vol] Ordered By: Em Melissa on 02-06-2023 MCV (RBC) [Entitic vol] 96.9 fL 83.5-101 [facility] Monocytes Auto (Bld) [#/Vol] Ordered By: Em Melissa on 02-06-2023 Monocytes (Bld) [#/Vol] 0.5 10*3/uL 0.0-0.8 [facility] Monocytes/100 WBC Auto (Bld) Ordered By: Em Melissa on 02-06-2023 Monocytes/100 WBC (Bld) 6.1 % . [facility] Neutrophils Auto (Bld) [#/Vo l]Ordered By: Em Melissa on 02-06-2023 Neutrophils (Bld) [#/Vol] 7.6 10*3/uL 1.8-7.7 [facility] Neutrophils/100 WBC Auto (Bl d)Ordered By: Em Melissa on 02-06-2023 Neutrophils/100 WBC (Bld) 88.4 % . [facility] No Panel InformationOrdered By: Em Melissa on 02-06-2023 Estimated GFR (CKD-EPI) 9.689 mL/Min [facility] Creatinine Clearance (Chem 13.43 [facility] Nucleated erythrocytes [Pres ence] in Blood by Automated countOrdered By: Em Melissa on 02-06-2023 Nucleated RBC Auto Ql (Bld) 0.0 /100{WBC} 0-0.5 [facility] Platelet mean volume Auto (B ld) [Entitic vol]Ordered By: Em Melissa on 02-06-2023 Platelet mean volume (Bld) [Entitic vol] 6.9 fL 6.6-10.1 [facility] Platelets Auto (Bld) [#/Vol] Ordered By: Em Melissa on 02-06-2023 Platelets (Bld) [#/Vol] 159 10*3/uL 150-450 [facility] Potassium [Moles/volume] in Serum or PlasmaOrdered By: Em Melissa on 02-06-2023 Potassium [Moles/Vol] 4.0 mmol/L 3.5-5.1 [facility] RBC Auto (Bld) [#/Vol]Ordere d By: Em Melissa on 02-06-2023 RBC (Bld) [#/Vol] 3.10 10*6/uL 3.90-5.60 [facility] Serum or plasma anion gap de terminationOrdered By: Em Melissa on 02-06-2023 Anion gap [Moles/Vol] 11.4 mmol/L 6.0-15.0 [facility] Sodium [Moles/volume] in Ser um or PlasmaOrdered By: Em Melissa on 02-06-2023 Sodium [Moles/Vol] 135 mmol/L 136-145 [facility] Urea nitrogen [Mass/volume] in Serum or PlasmaOrdered By: Em Melissa on 02-06-2023 Urea nitrogen [Mass/Vol] 42 mg/dL 7-25 [facility] WBC Auto (Bld) [#/Vol]Ordere d By: Em Melissa on 02-06-2023 WBC (Bld) [#/Vol] 8.6 10*3/uL 4.1-10.5 [facility] XR hip LT 1Von 02-06-2023 XR hip LT 1V [facility] [place] [address] XRay Report Signed Patient: Mele Sky MR#: [id number] 1230 : 1955 Acct:[id number] Age/Sex: 67 / M ADM Date: 02/05/23 Loc: Room: [address] [place] [address] Type: ADM IN Attending Dr: Erin Anderson MD Copies to: MD Em Taylor MD Ordering Provider: Em Melissa MD Date of Service: 02/05/23 XR/XR hip LT 1V: LT ANTERIOR HIP XR hip LT 1V 02/05/2023 10:44 PM SIGNS AND SYMPTOMS: Left anterior hip arthroplasty PROTOCOL: Intraoperative views of the left hip COMPARISON: 02/05/2023 FINDINGS: Intraoperative views demonstrate total left hip arthroplasty hardware placement. Cumulative Air Kerma in mGy: 11.6 mGy XR/XR hip LT 1V IMPRESSION: Intraoperative views demonstrate total left hip arthroplasty hardware placement. Impression dictated by: Luis Angel Reynolds M.D.02/06/2023 8:43 AM Dictation Location: RADIO-PC-08 Transcribed By: [facility] 02/06/2343 Dictated By: Luis Angel Reynolds II, MD 02/06/2341 Signed By: 02/06/23842 [facility] XR low pelvis w/LT x-table h ipon 02-06-2023 XR low pelvis w/LT x-table hip [facility] [place] [address] XRay Report Signed Patient: Mele Sky MR#: [id number] 1230 : 1955 Acct:[id number] Age/Sex: 67 / M ADM Date: 02/05/23 Loc: Room: [address] [place] [address] Type: ADM IN Attending Dr: Erin Anderson MD Copies to: MD Em Taylor MD Ordering Provider: Em Melissa MD Date of Service: 02/05/23 XR/XR low pelvis w/LT x-table hip: Total hip, Do in PACU Plain film low pelvis with left hip crosstable lateral HISTORY: Status post left total hip arthroplasty No hardware failure. Adequate alignment. Postsurgical soft tissue changes. Degenerative change. XR/XR low pelvis w/LT x-table hip IMPRESSION: Uncomplicated left hip arthroplasty. Impression dictated by: Rodrigo Bishop M.D.02/06/2023 8:36 AM Dictation Location: RADIO--12 Transcribed By: [facility] 02/06/2336 Dictated By: Rodrigo Bishop DO 02/06/2335 Signed By: 02/06/23835 [facility] Alanine aminotransferase [En zymatic activity/volume] in Serum or PlasmaOrdered By: Tk Shah on 02-05-2023 ALT [Catalytic activity/Vol] 17 U/L 7-52 [facility] Albumin [Mass/volume] in Ser um or Plasma by Bromocresol green (BCG) dye binding methoOrdered By: Tk Shah on 02-05-2023 Albumin BCG dye [Mass/Vol] 3.8 g/dL 3.5-5.7 [facility] Alkaline phosphatase [Enzyma tic activity/volume] in Serum or PlasmaOrdered By: Obarmandodacris Harrellomar on 02-05-2023 ALP [Catalytic activity/Vol] 53 U/L 34-104 [facility] Aspartate aminotransferase [ Enzymatic activity/volume] in Serum or PlasmaOrdered By: Obaydah Daromar on 02-05-2023 AST [Catalytic activity/Vol] 16 U/L 13-39 [facility] Bilirubin.total [Mass/volume ] in Serum or PlasmaOrdered By: Obaydah Daromar on 02-05-2023 Bilirubin [Mass/Vol] 0.5 mg/dL 0.3-1.0 [facility] Complete Blood Count Auto Di ffon 02-05-2023 Basophils (Bld) [#/Vol] 0.0 10*3/uL Normal 0.0-0.2 [facility] Comment on above: Result Comment: PERF ORMED BY: [facility] [address] [place] [address] PATHOLOGIST SCRUBBING MACHINE OPERATOR RADHA PETERSON M.D. Performed By: #### C MP, PT, CBC, [id number] ####[address] [place] [address] [facility] Basophils/100 WBC (Bld) 0.5 % Normal . [facility] Comment on above: Performed By: #### C MP, PT, CBC, [id number] ####[address] [place] [address] [facility] Eosinophils (Bld) [#/Vol] 0.2 10*3/uL Normal 0.0-0.45 [facility] Comment on above: Performed By: #### C MP, PT, CBC, [id number] ####[address] [address] [place] Eosinophils/100 WBC (Bld) 1.8 % Normal . [facility] Comment on above: Performed By: #### C MP, PT, CBC, [id number] ####[place] [id number] [facility] Erythrocyte distribution width (RBC) [Ratio] 16.3 % High 12.0-14.8 [facility] Comment on above: Performed By: #### C MP, PT, CBC, [id number] ####[address] Hematocrit (Bld) [Volume fraction] 33.0 % Low 38.8-50.0 [facility] Comment on above: Performed By: #### C MP, PT, CBC, [id number] ####[address] Hemoglobin (Bld) [Mass/Vol] 11.1 g/dL Low 13.0-17.0 [facility] Comment on above: Performed By: #### C MP, PT, CBC, [id number] ####[address] Lymphocytes (Bld) [#/Vol] 0.9 10*3/uL Low 1.00-4.8 [facility] Comment on above: Performed By: #### C MP, PT, CBC, [id number] ####[address] Lymphocytes/100 WBC (Bld) 10.6 % Normal . [facility] Comment on above: Performed By: #### C MP, PT, CBC, [id number] ####[address] MCH (RBC) [Entitic mass] 32.5 pg Normal 27.5-35.2 [facility] Comment on above: Performed By: #### C MP, PT, CBC, [id number] ####[address] MCV (RBC) [Entitic vol] 96.1 fL Normal 83.5-101 [facility] Comment on above: Performed By: #### C MP, PT, CBC, [id number] ####[address] Mean Corpuscular HGB Conc 33.8 g/dL Normal 32.5-35.6 [facility] Comment on above: Performed By: #### C MP, PT, CBC, [id number] ####[address] Monocytes (Bld) [#/Vol] 0.8 10*3/uL Normal 0.0-0.8 [facility] Comment on above: Performed By: #### C MP, PT, CBC, [id number] ####[address] Monocytes/100 WBC (Bld) 8.7 % Normal . [facility] Comment on above: Performed By: #### C MP, PT, CBC, [id number] ####[address] Neutrophils (Bld) [#/Vol] 6.9 10*3/uL Normal 1.8-7.7 [facility] Comment on above: Performed By: #### C MP, PT, CBC, [id number] ####[address] Neutrophils/100 WBC (Bld) 78.4 % Normal . [facility] Comment on above: Performed By: #### C MP, PT, CBC, [id number] ####[address] NRBC% 0.1 /100{WBC} Normal 0-0.5 [facility] Comment on above: Performed By: #### C MP, PT, CBC, [id number] ####[address] Platelet mean volume (Bld) [Entitic vol] 6.9 fL Normal 6.6-10.1 [facility] Comment on above: Performed By: #### C MP, PT, CBC, [id number] ####[address] Platelets (Bld) [#/Vol] 187 10*3/uL Normal 150-450 [facility] Comment on above: Performed By: #### C MP, PT, CBC, [id number] ####[place] [address] [place] [id number] [facility] RBC (Bld) [#/Vol] 3.43 10*6/uL Low 3.90-5.60 [facility] Comment on above: Performed By: #### C MP, PT, CBC, [id number] ####[place] [id number] [facility] WBC (Bld) [#/Vol] 8.8 10*3/uL Normal 4.1-10.5 [facility] Comment on above: Performed By: #### C MP, PT, CBC, [id number] ####[address] Comprehensive Metabolic Pane adalid 02-05-2023 Albumin [Mass/Vol] 3.8 g/dL Normal 3.5-5.7 [facility] Comment on above: Performed By: #### C MP, PT, CBC, [id number] ####[address] Albumin/Globulin [Mass ratio] 1.6 {ratio} Normal [facility] Comment on above: Performed By: #### C MP, PT, CBC, [id number] ####[address] ALP [Catalytic activity/Vol] 53 U/L Normal 34-104 [facility] Comment on above: Performed By: #### C MP, PT, CBC, [id number] ####[place] [id number] [facility] ALT [Catalytic activity/Vol] 17 U/L Normal 7-52 [facility] Comment on above: Performed By: #### C MP, PT, CBC, [id number] ####[place] [id number] [facility] Anion gap [Moles/Vol] 8.9 mmol/L Normal 6.0-15.0 [facility] Comment on above: Performed By: #### C MP, PT, CBC, [id number] ####[facility] [place] [address] [facility] AST [Catalytic activity/Vol] 16 U/L Normal 13-39 [facility] Comment on above: Performed By: #### C MP, PT, CBC, [id number] ####[address] [address] [facility] Bilirubin [Mass/Vol] 0.5 mg/dL Normal 0.3-1.0 [facility] Comment on above: Performed By: #### C MP, PT, CBC, [id number] ####[address] [address] [facility] Calcium [Mass/Vol] 9.5 mg/dL Normal 8.6-10.3 [facility] Comment on above: Performed By: #### C MP, PT, CBC, [id number] ####[address] [address] [facility] Chloride [Moles/Vol] 102 mmol/L Normal 98-107 [facility] Comment on above: Performed By: #### C MP, PT, CBC, [id number] ####[address] [address] [facility] CO2 [Moles/Vol] 30.5 mmol/L Normal 21.0-31.0 [facility] Comment on above: Performed By: #### C MP, PT, CBC, [id number] ####[address] [address] [facility] Creatinine [Mass/Vol] 5.05 mg/dL High 0.70-1.30 [facility] Comment on above: Performed By: #### C MP, PT, CBC, [id number] ####[address] [address] [place] Creatinine Clr Calc Pharmacy 16.01 Normal [facility] Comment on above: Result Comment: PERF ORMED BY: [facility] [address] [place] [id number] PATHOLOGIST SCRUBBING MACHINE OPERATOR JIANLAN SUN M.D. Performed By: #### C MP, PT, CBC, [id number] ####[place] [address] [place] [id number] [facility] GFR/1.73 sq M.predicted MDRD (S/P/Bld) [Vol rate/Area] 11.963 mL/min/{1.73_m2} [facility] Comment on above: Performed By: #### C MP, PT, CBC, [id number] ####[place] [id number] [facility] Globulin (S) [Mass/Vol] 2.4 g/dL [facility] Comment on above: Performed By: #### C MP, PT, CBC, [id number] ####[address] Glucose [Mass/Vol] 107 mg/dL High 70-100 [facility] Comment on above: Result Comment: [facility] Glucose Reference Range is dependent on time and content of last meal. Glucose of more than 200 mg/dL in a nonstressed, ambulatory subject supports the diagnosis of Diabetes Mellitus. ADA recommended reference range Performed By: #### C MP, PT, CBC, [id number] ####[place] [id number] [facility] Potassium [Moles/Vol] 3.4 mmol/L Low 3.5-5.1 [facility] Comment on above: Performed By: #### C MP, PT, CBC, [id number] ####[place] [id number] [facility] Protein [Mass/Vol] 6.2 g/dL Low 6.4-8.9 [facility] Comment on above: Performed By: #### C MP, PT, CBC, [id number] ####[place] [id number] [facility] Sodium [Moles/Vol] 138 mmol/L Normal 136-145 [facility] Comment on above: Performed By: #### C MP, PT, CBC, [id number] ####[address] [place] [address] [facility] Urea nitrogen [Mass/Vol] 31 mg/dL High 7-25 [facility] Comment on above: Performed By: #### C MP, PT, CBC, [id number] ####[facility] [address] [place] [address] [facility] Globulin Calc (S) [Mass/Vol] Ordered By: Tk Shah on 02-05-2023 Globulin (S) [Mass/Vol] 2.4 g/dL [facility] INR in Platelet poor plasma by Coagulation assayOrdered By: Tk Shah on 02-05-2023 INR Coag (PPP) [Relative time] 0.9 {INR} [facility] Comment on above: INR Therapeutic Rang e A) Pre- and Peroperative OAT started two weeks before surgery. NOT HIP SURGERY: 1.5 - 2.5 HIP SURGERY: 2 - 3B) Primary and secondary prevention of venous THROMBOSIS: 2 - 3C) Active venous thrombosis, pulmonary embolismand prevention of recurrent venous thrombosis: 2 - 3D) Prevention of arterial thromboembolismincluding patients with mechanical heart valves: 3 - 4.5 Adalid 02-05-2023 L ---- Specimen: [id number] Received: 02/06/23 Status: CONSUELO Rachel Num: [id number] Spec Type: Surgical Subm Dr: Em Melissa MD Tissues: A Femoral Head - Other than Fracture (LT HIP) Procedures: HE/2, Gross/Micro L3, Decalcification Age/ Patient Sex Location Account Attending Physician Mele Sky 67/M 4N [id number] Erin Anderson MD SPEC NUM: [id number] RECD: 02/06/23 STATUS: CONSUELO MATSON NUM: [id number] DELIA: 02/05/[address] [facility] DR: Em Melissa MD ENTERED: 02/06/[address]: MOSHE TYPE: Surgical DEPT: S ORDERED: HE/2, Gross/Micro L3, Decalcification ORDERED: HE/2, Gross/Micro L3, Decalcification Pathological Diagnosis Left hip bone and soft tissue, total hip anterior arthroplasty: - Femoral head and neck bone with severe hemorrhagic disruption and degenerations of the femoral neck bone, demonstrating apparent patchy associated fibrinoid depositions and hemorrhagic exudates, in addition to mildly associated intertrabecular fibrosis at the fractured age, compatible with recent severe acute hemorrhagic fracture of the femoral neck bone - Incidental mild background degenerative osteoarthritis with mildly associated articular erosions of femoral head, otherwise also showing preserved hematopoietic element in the examined dilated and intact medullary spaces - Incidental mild underlying or background osteopenia is also apparent Clinical Information DJD, left hip fracture Gross Description Received in formalin labeled with the patient's name, date of and bone and tissue is a 5.0 x 4.8 x 4.7 cm femoral head with a detached 7.0 x 7.0 x 2.3 cm aggregate of hernandez-red bone and soft tissue. The femoral head has a smooth to granular, hernandez-muller articular surface. No eburnation is identified. The cut surface is hernandez-red, trabecular with focal hemorrhage at the femoral neck resection margin. Focal thinning of the articular cartilage is identified.. Machine Washer are submitted following decalcification in 2 cassettes as Specimen: [id number] Received: 02/06/23 Status: CONSUELO Matson Num: [id number] Spec Type: Surgical Subm Dr: Em Melissa MD Tissues: A Femoral Head - Other than Fracture (LT HIP) Procedures: HE/2, Gross/Micro L3, Decalcification Patient: Mele Sky [id number] (Continued) Specimen: [id number] Received: 02/06/23 (Continued) Gross Description (Continued) Signed (signature on file) Christina Candelaria MD 02/09/23 1503 Specimen: [id number] Received: 02/06/23 Status: CONSUELO Matson Num: [id number] Spec Type: Surgical Subm Dr: Em Melissa MD Tissues: A Femoral Head - Other than Fracture (LT HIP) Procedures: HE/2, Gross/Micro L3, Decalcification Patient: Mele Sky [id number] (Continued) Specimen: [id number] Received: 02/06/23 (Continued) Gross Description (Continued) follows: A1 - Hemorrhage at femoral neck margin A2 - Section of the thinned articular cartilage Microscopic Description Two H E slides reviewed. The microscopic examination confirms the diagnosis. CPT Codes 27621, 42173 Specimen: [id number] Received: 02/06/23 Status: CONSUELO Matson Num: [id number] Spec Type: Surgical Subm Dr: Em Melissa MD Tissues: A Femoral Head - Other than Fracture (LT HIP) Procedures: HE/2, Gross/Micro L3, Decalcification Patient: Mele Sky [id number] (Continued) Signed (signature on file) Christina Candelaria MD 02/09/23 8427 [facility] Protein [Mass/volume] in Ser um or PlasmaOrdered By: Tk Shah on 02-05-2023 Protein [Mass/Vol] 6.2 g/dL 6.4-8.9 [facility] Prothrombin Time INRon 02-05 INR Coag (PPP) [Relative time] 0.9 {INR} Normal [facility] Comment on above: Result Comment: INR Therapeutic Range A) Pre- and Peroperative OAT started two weeks before surgery. NOT HIP SURGERY: 1.5 - 2.5 HIP SURGERY: 2 - 3 B) Primary and secondary prevention of venous THROMBOSIS: 2 - 3 C) Active venous thrombosis, pulmonary embolism and prevention of recurrent venous thrombosis: 2 - 3 D) Prevention of arterial thromboembolism including patients with mechanical heart valves: 3 - 4.5 PERFORMED BY: [facility] [address] [facility] [address] PATHOLOGIST SCRUBBING MACHINE OPERATOR RADHA PETERSON M.D. Performed By: #### C MP, PT, CBC, [id number] ####[facility] [id number] [place] [address] [facility] PT Coag (PPP) [Time] 10.5 s Normal 9.0-12.9 [facility] Comment on above: Result Comment: A matocrit value greater than 55% may lead to inaccurate results in coagulation testing. Patients having hematocrit values >55% require a special collection tube for coagulation studies. Please contact the laboratory at [phone] for redraw instructions. Performed By: #### C MP, PT, CBC, [id number] ####[facility] [id number] [place] [address] [facility] Prothrombin time (PT)Ordered By: Tk Shah on 02-05-2023 PT Coag (PPP) [Time] 10.5 s 9.0-12.9 [facility] Comment on above: A hematocrit value g reater than 55% may lead to inaccurate results in coagulation testing. Patients having hematocrit values >55% require a special collection tube for coagulation studies. Please contact the laboratory at [phone] for redraw instructions. Serum or plasma albumin/glob ulin mass ratioOrdered By: Tk Shah on 02-05-2023 Albumin/Globulin [Mass ratio] 1.6 {ratio} [facility] Type and Screenon 02-05-2023 ABO and Rh group Nom (Bld) Blood group B Rh(D) positive Normal [facility] Vitamin D 25 Hydroxy Totalon 02-05-2023 Vitamin D 25 Hydroxy Total 48.6 ng/mL Normal 30-100 [facility] Comment on above: Result Comment: LISA MIN D STATUS 25([place])VITAMIN D RANGE (ng/mL) Deficient <20 Insufficient 20 to <30 Sufficient 30 to 100 Reference: Wade Roger, Parish MENDIETA, et al. Evaluation,treatment, and prevention of vitamin D deficiency; an Endocrine Society clinical practice guideline. JCEM. 2010; 96(7):191-. PERFORMED BY: [place] [address] PATHOLOGIST SCRUBBING MACHINE OPERATOR RADHA PETERSON M.D. Performed By: #### C MP, PT, CBC, [id number] ####[facility] [id number] [place] [address] [facility] Vitamin D+Metabolites [Mass/ volume] in Serum or PlasmaOrdered By: Tk Shah on 02-05-2023 Vitamin D+Metabolites [Mass/Vol] 48.6 ng/mL 30-100 [facility] Comment on above: VITAMIN D STATUS 25( [place])VITAMIN D RANGE (ng/mL) Deficient <20 Insufficient 20 to <30Sufficient 30 to 100Reference: Wade Roger, Parish MENDIETA, et al. Evaluation,treatment, and prevention of vitamin D deficiency; an Endocrine Society clinical practice guideline. JCEM. 2010; 96(7):1911-. XR chest 1V portableon 02-05 XR chest 1V portable [facility] [address] [place] [address] XRay Report Signed Patient: Mele Sky MR#: [id number] 1230 : 1955 Acct:[id number] Age/Sex: 67 / M ADM Date: 02/05/23 Loc: Room: [address] [place] [address] Type: ADM IN Attending Dr: Tk Shah MD Copies to: Tk Shah MD Ordering Provider: Tk Shah MD Date of Service: 02/05/23 XR/XR chest 1V portable: preop evaluation PORTABLE AP RECUMBENT CHEST 0529 hours CLINICAL HISTORY: Preop for fixation of hip fracture. COMPARISON: 09/10/2022 A right IJ dialysis catheter is again visualized. The heart is within normal limits. There is no vascular congestion. The lungs, as visualized, are clear. There is no effusion or pneumothorax. The osseous structures are intact. Endplate spurring is seen. XR/XR chest 1V portable IMPRESSION: NO ACUTE FINDINGS Impression dictated by: Yusra Medley M.D.02/05/2023 7:09 AM Dictation Location: [place] [address] Transcribed By: [facility] 02/05/23 07 Dictated By: Yusra Medley MD 02/05/23 0708 Signed By: 02/05/23 0709 Normal [facility] XR femur LT 2V*on 02-05-2023 XR femur LT 2V* [facility] [address] [place] [address] XRay Report Signed Patient: Mele Sky MR#: [id number] 1230 : 1955 Acct:[id number] Age/Sex: 67 / M ADM Date: 02/05/23 Loc: Room: [address] [place] [address] Type: ADM IN Attending Dr: Erin Anderson MD Copies to: MD Erin Fairbanks MD Ordering Provider: Sophy Street MD Date of Service: 02/05/23 XR/XR femur LT 2V*: hip fx ([id number]) XR/XR pelvis 1-2V: hip fx Single view of the pelvis plain film HISTORY: Walking last night. Popping sensation. LEFT hip deformity. COMPARISON: CT of the hip from outside institution 02/05/23 SI JOINTS degenerative change HIPS displaced subcapital hip fracture of LEFT hip. CT findings suggest pathologic component. BONY ALIGNMENT: No dislocation. SOFT TISSUES: Unremarkable LOWER LUMBAR SPINE: Degenerative change INTRAPELVIC STRUCTURES: Unremarkable POSTSURGICAL CHANGES:None XR/XR pelvis 1-2V IMPRESSION:Displaced LEFT subcapital hip fracture. the pathologic component seen with CT examination. 2 views of the LEFT hip Subcapital hip fracture redemonstrated. No additional fracture seen. No dislocation. Unremarkable soft tissues. IMPRESSION: No additional fracture. Impression dictated by: Rodrigo Bishop M.D.02/05/2023 11:48 AM Dictation Location: [place] [address] Transcribed By: [facility] 02/05/23 1148 Dictated By: Rodrigo Bishop DO 02/05/23 1140 Signed By: 02/05/23 1148 [facility] CNCOon 01-30-2023 CNCO Letter Text [facility] Screenson 01-30-2023 Screens [id number] :127 [facility] Screens [id number]#[id number] :127 [facility] CNPNon 01-29-2023 CNPN Normal [facility] Patient Educationon 01-30-20 Patient Education Nephrology Dietary Guidelines to Help Prevent Kidney Stones Kidney stones are deposits of minerals and salts that form inside your kidneys. Your risk of developing kidney stones may be greater depending on your diet, your lifestyle, the medicines you take, and whether you have certain medical conditions. Most people can lower their chances of developing kidney stones by following the instructions below. Your dietitian may give you more specific instructions depending on your overall health and the type of kidney stones you tend to develop. What are tips for following this plan? Reading food labels ? Choose foods with no salt added or low-salt labels. Limit your salt (sodium) intake to less than 1,500 mg a day. ? Choose foods with calcium for each meal and snack. Try to eat about 300 mg of calcium at each meal. Foods that contain 200?500 mg of calcium a serving include: ? 8 oz (237 mL) of milk, hhfprrn-hivppktvtsmp-zod ry milk, and calcium-fortifiedfruit juice. Calcium-fortified means that calcium has been added to these drinks. ? 8 oz (237 mL) of kefir, yogurt, and soy yogurt. ? 4 oz (114 g) of tofu. ? 1 oz (28 g) of cheese. ? 1 cup (150 g) of dried figs. ? 1 cup (91 g) of cooked broccoli. ? One 3 oz (85 g) can of sardines or mackerel. Most people need 1,000?1,500 mg of calcium a day. Talk to your dietitian about how much calcium is recommended for you. Shopping ? Buy plenty of fresh fruits and vegetables. Most people do not need to avoid fruits and vegetables, even if these foods contain nutrients that may contribute to kidney stones. ? When shopping for convenience foods, choose: ? Whole pieces of fruit. ? Pre-made salads with dressing on the side. ? Low-fat fruit and yogurt smoothies. ? Avoid buying frozen meals or prepared deli foods. These can be high in sodium. ? Look for foods with live cultures, such as yogurt and kefir. ? Choose high-fiber grains, such as whole-wheat breads, oat bran, and wheat cereals. Cooking ? Do not add salt to food when cooking. Place a salt shaker on the table and allow each person to add his or her own salt to taste. ? Use vegetable protein, such as beans, textured vegetable protein (TVP), or tofu, instead of meat in pasta, casseroles, and soups. Meal planning ? Eat less salt, if told by your dietitian. To do this: ? Avoid eating processed or pre-made food. ? Avoid eating fast food. ? Eat less animal protein, including cheese, meat, poultry, or fish, if told by your dietitian. To do this: ? Limit the number of times you have meat, poultry, fish, or cheese each week. Eat a diet free of meat at least 2 days a week. ? Eat only one serving each day of meat, poultry, fish, or seafood. ? When you prepare animal protein, cut pieces into small portion sizes. For most meat and fish, one serving is about the size of the palm of your hand. ? Eat at least five servings of fresh fruits and vegetables each day. To do this: ? Keep fruits and vegetables on hand for snacks. ? Eat one piece of fruit or a handful of berries with breakfast. ? Have a salad and fruit at lunch. ? Have two kinds of vegetables at dinner. ? Limit foods that are high in a substance called oxalate. These include: ? Spinach (cooked), rhubarb, beets, sweet potatoes, and Iraqi chard. ? Peanuts. ? Potato chips, danish fries, and baked potatoes with skin on. ? Nuts and nut products. ? Chocolate. ? If you regularly take a diuretic medicine, make sure to eat at least 1 or 2 servings of fruits or vegetables that are high in potassium each day. These include: ? Avocado. ? Banana. ? Hood, prune, carrot, or tomato juice. ? Baked potato. ? Cabbage. ? Beans and split peas. Lifestyle ? Drink enough fluid to keep your urine pale yellow. This is the most important thing you can do. Spread your fluid intake throughout the day. ? If you drink alcohol: ? Limit how much you use to: ? 0?1 drink a day for women who are not . ? 0?2 drinks a day for men. ? Be aware of how much alcohol is in your drink. In the [place] one drink equals one 12 oz bottle of beer (355 mL), one 5 oz glass of wine (148 mL), or one 1? oz glass of hard liquor (44 mL). ? Lose weight if told by your health care provider. Work with your dietitian to find an eating plan and weight loss strategies that work best for you. General information ? Talk to your health care provider and dietitian about taking daily supplements. You may be told the following depending on your health and the cause of your kidney stones: ? Not to take supplements with vitamin C. ? To take a calcium supplement. ? To take a daily probiotic supplement. ? To take other supplements such as magnesium, fish oil, or vitamin B6. ? Take xnir-gfr-qpnsgbp and prescription medicines only as told by your health care provider. These include supplements. What foods should I limit? Limit your in (more content not included)... Normal [facility] Urology Office/Clinic Noteon 01-29-2023 Urology Office/Clinic Note Chief Complaint 8 week follow up w/ PVR HPI Staff Pt here for 8 wk follow up with [facility] to discuss cysto. Previous DX: kidney stones, BPH w/urinary obstruction, hx of urinary retention, prostatitis. SHANTA 3 (24). IPSS 6 (6). Flomax 0.4 mg qd. Pt unable to give urine sample today. Pt states he last urinated a hour prior to his appt here today IO. Pt is currently being treated for UTI, one pill left. PVR (cc): 11/27/22 - 13 01/29/23 - 397 Dysuria: denies pain and burning Incomplete bladder emptying: denies Hematuria: denies visible blood Frequency: 4-5x a day Urgency: denies Nocturia: denies Stream: denies hesitancy, strong stream Leaking: denies Post void dripping: denies Wearing pads/ Depends: denies Urge incontinence: denies Stress incontinence: denies Incontinence without Sensory Awareness: denies Abdominal pain: denies Flank pain: denies History of Present Illness Tests reviewed: reviewed UA I have reviewed the previous health record information and history for this patient from Dr. Shirley. I have reviewed and verified the staff HPI to be accurate for this encounter. There have been no associated fever, chills, flank pain, or blood in the urine. Review of Systems PHQ Score Initial Depression Screen Score: 0 ROS - Provider Constitutional: denies weight loss, denies hot flashes. Eyes: denies eye problems. Gastrointestinal: denies nausea, denies vomiting. Cardiovascular: denies chest pain or angina. Integumentary: no dryness Musculoskeletal: denies musculoskeletal symptoms. ENMT: denies otolaryngeal symptoms. Respiratory: no shortness of breath. Heme/Lymph: denies easy bleeding tendency, denies easy bruising tendency. Psychiatric: no confusion, no anxiety. Genitourinary: See HPI. Physical Exam Vitals & Measurements HR: 72(Peripheral) BP: 122/77 HT: 72 in HT: 184 cm WT: 83.5 kg WT: 183.7 lb BMI: 24.66 General Appearance: alert, no distress, well nourished, well developed male. Genitourinary: Flank Pain: none. Bladder: nonpalpable. Prostate: Nontender, moderately enlarged. Assessment/Plan 67 yo male with history of gastric bypass revision complicated by GI bleed, severe anemia and FITO on dialysis initially presented with urinary retention s/p freeman placement 09/08/22. [1] SHANTA 3 (24). 1. Prostatitis (N41.9: Inflammatory disease of prostate, unspecified) UCx: 11/24/22 - E. coli 40-50k, gayle sensitive. Pt does not recall what abx he was treated with, first course was 6 wk. Would receive right after dialysis. Dr. Lloyd extended course another 3 wk due to sxs returning, has one pill left. Cont with dialysis 3x/week, having difficulty with this. Recently placed on [facility] transplant list. Prostate is nontender, may not be prostatitis this round. -Recommended cranberry supplement over juice. -Will schedule cystoscopy for further evaluation. The risks and benefits for cystoscopy have been discussed. The risks include bleeding, infection, and irritation of the bladder and urinary channel, among others. The patient, after being informed of procedural details and after questions have been answered, wishes to proceed. Full informed consent has been obtained. Will order Local anesthesia. 2. BPH with urinary obstruction (N40.1: Benign prostatic hyperplasia with lower urinary tract symptoms) Measured volume from CT scan - 48 gm prostate. [1] Pt unable to provide urine sample today. IPSS 6 (6). Taking Flomax 0.4 mg qd. Cont wo changes, no SEs. No urinary complaints, urination better while taking abx. Discussed minimally invasive BEVERLY procedures including Rezum or Urolift, depending on prostate size and shape. Educational pamphlets provided. -Will schedule cystoscopy for further evaluation as above -cont tamsulosin 3. History of urinary retention (Z87.898: Personal history of other specified conditions) PVR (cc): 11/27/22 - 13 01/29/23 - 397 *random scan, last voided about an hour ago. Pt should be able to void with this volume. [facility] 09/08/22 for urinary frequency. Pt was placed with a catheter at visit. Failed voiding trial during admission. Voiding trial IO 10/20/22. -Cont timed voiding and Flomax. -Cysto as above 4. Kidney stones (N20.0: Calculus of kidney) [facility] 09/08/22 due to urinary frequency and pain. CT AP wo con 09/08/22 [facility] Bilateral nephrolithiasis w/ no obstruction and moderate bladder wall thickening. Personal review: Right at least 10 stones measuring up to 11 x 5 mm, Left about 4 stones up to 10 x 5 mm. -Due for KUB and MARISOL 04/2023 (recall previously placed). Could be contributing to #1. Will wait for treatment until he is more recovered from his acute GI bleed and new onset FITO. I spent 30 minutes today with the patient: reviewing tests in preparation to see and discuss them with the patient, documenting clinical information in the electronic health records, and care coordination. Time was spent performing a medical exam and evaluation, counseling and educa (more content not included)... Normal [facility] Comment on above: Result Comment: Elec tronically Signed By: Casper JENKINS, Barby Ramirez\.br\Date and Time Signed: 01/29/23 12:23 EDT\.br\Electronically Co-Signed By: Jessica Urrutia\.br\Date and Time Co-Signed: 01/29/23 11:23 EDT\.br\Electronically Co-Signed By: Jessica Urrutia\.br\Date and Time Co-Signed: 01/29/23 11:25 EDT Discharge Instructionson Discharge Instructions [id number]: 127 Normal [facility] ED Traumaon 01-24-2023 ED Trauma [id number]: 127 Normal [facility] Auto Diffon 01-23-2023 Basophils/100 WBC (Bld) 0.2 % Normal 0.0-2.0 [facility] Comment on above: Order Comment: Order Added by Discern Expert. Performed By: #### 1 [id number], [id number], [id number], [id number], [id number], [id number] #### [facility] [address] [place] [address] Basophils/Leukocytes Auto (Bld) [Pure # fraction] 0.0 E9/L Normal 0.0-0.2 [facility] Comment on above: Order Comment: Order Added by Discern Expert. Performed By: #### 1 [id number], [id number], 1975169, 0739754, [id number], [id number] #### [facility] [address] [place] [address] Eosinophils/100 WBC (Bld) 2.2 % Normal 0.0-8.0 [facility] Comment on above: Order Comment: Order Added by Discern Expert. Performed By: #### 1 [id number], 7376245, 3727880, 7858465, [id number], [id number] #### [facility] [address] [place] [address] Eosinophils/Leukocyte s Auto (Bld) [Pure # fraction] 0.2 E9/L Normal 0.0-0.5 [facility] Comment on above: Order Comment: Order Added by Discern Expert. Performed By: #### 1 [id number], 8305633, 8147340, 2446146, [id number], [id number] #### [facility] [address] [place] [address] Lymphocytes/100 WBC (Bld) 11.3 % Low 14.0-50.0 [facility] Comment on above: Order Comment: Order Added by Discern Expert. Performed By: #### 1 [id number], 4664080, 1115816, 0183741, [id number], 7330565 #### [facility] [address] [place] [address] Lymphocytes/Leukocyte s Auto (Bld) [Pure # fraction] 0.9 E9/L Low 1.0-4.0 [facility] Comment on above: Order Comment: Order Added by Discern Expert. Performed By: #### 1 [id number], 2484171, 8014998, 0654854, [id number], [id number] #### [facility] [address] [place] [address] Monocytes/100 WBC (Bld) 7.8 % Normal 4.0-14.0 [facility] Comment on above: Order Comment: Order Added by Earnest Expert. Performed By: #### 1 [id number], 9792080, 0316304, 5819202, 13370146, [id number] #### [facility] [address] [place] [address] Monocytes/Leukocytes Auto (Bld) [Pure # fraction] 0.6 E9/L Normal 0.2-1.0 [facility] Comment on above: Order Comment: Order Added by Discern Expert. Performed By: #### 1 [id number], 9087778, 0032810, 5706228, 26782256, [id number] #### [facility] [address] [place] [address] Neutrophils/100 WBC (Bld) 78.5 % High 36.0-75.0 [facility] Comment on above: Order Comment: Order Added by Discern Expert. Performed By: #### 1 [id number], 0193595, 5847772, 7338998, [id number], [id number] #### [facility] [address] [place] [address] Neutrophils/Leukocyte s Auto (Bld) [Pure # fraction] 6.1 E9/L Normal 2.0-7.5 [facility] Comment on above: Order Comment: Order Added by Discern Expert. Performed By: #### 1 [id number], 8964019, 8783522, 4723365, 76613449, [id number] #### [facility] [address] [place] [address] BMPon 01-23-2023 Creatinine [Mass/Vol] 4.2 mg/dL High 0.5-1.3 [facility] Comment on above: Performed By: #### 1 [id number], 5385661, 6550011, 1604326, 30920217, 9861719 #### [facility] [address] [place] [address] Urea nitrogen [Mass/Vol] 31 mg/dL High 5-21 [facility] [facility] Comment on above: Performed By: #### 1 [id number], [id number], 8504930, 9647858, [id number], [id number] #### [facility] [address] [place] [address] Urea nitrogen/Creatinine [Mass ratio] 7 No Units Low 10-20 [facility] Comment on above: Performed By: #### 1 [id number], 5543891, 4974526, 6306385, [id number], 2859241 #### [facility] [address] [place] [address] Anion gap [Moles/Vol] 15 mmol/L Normal 6-16 [facility] Comment on above: Performed By: #### 1 [id number], 6733764, 4205292, 0250876, 64562473, 9954441 #### [facility] [address] [place] [address] Calcium [Mass/Vol] 8.7 mg/dL Low 8.9-11.1 [facility] Comment on above: Performed By: #### 1 5987141, 8256029, 7381477, 9090492, 21289502, 3696604 #### [facility] [address] [place] [address] Chloride [Moles/Vol] 100 mmol/L Low 101-111 [facility] Comment on above: Performed By: #### 1 [id number], 4949859, 0841477, 5848814, 48100341, 1971344 #### [facility] [address] [place] [address] CO2 [Moles/Vol] 25 mmol/L Normal 21-31 [facility] Comment on above: Performed By: #### 1 [id number], 6240312, 2620348, 1798133, 02129373, 5109895 #### [facility] [address] [place] [address] Glucose [Mass/Vol] 92 mg/dL Normal 55-199 [facility] Comment on above: Result Comment: If t his glucose result represents a fasting glucose, interpretation should refer to the following reference range: 55-99 mg/dL Performed By: #### 1 [id number], 7951890, 0015869, 1018995, 47953127, 8851335 #### [facility] [address] [place] [address] Potassium [Moles/Vol] 3.5 mmol/L Normal 3.5-5.3 [facility] Comment on above: Performed By: #### 1 0518217, 2559401, 7447186, 2701871, 00519291, 5046279 #### [facility] [address] [place] [address] Sodium [Moles/Vol] 136 mmol/L Normal 135-145 [facility] Comment on above: Performed By: #### 1 5370285, 1414661, 0414775, 7176813, 26380751, 5436414 #### [facility] [address] [place] [address] CBC w/ Auto Diffon 3 Erythrocyte distribution width (RBC) [Ratio] 16.2 % High 10.9-14.2 [facility] Comment on above: Performed By: #### 1 9132619, 4234576, 3627548, 0094094, 25847244, 8797535 #### [facility] [address] [place] [address] Hematocrit (Bld) [Volume fraction] 33.5 % Low 37.7-49.0 [facility] Comment on above: Performed By: #### 1 8940342, 9166173, 4991551, 2495852, 40032479, 4404288 #### [facility] [address] [place] [address] Hemoglobin (Bld) [Mass/Vol] 11.4 g/dL Low 13.5-17.5 [facility] Comment on above: Performed By: #### 1 8489985, 8198413, 5357878, 6927109, 31095926, 7250362 #### [facility] [address] [place] [address] MCH (RBC) [Entitic mass] 31.8 pg Normal 27.0-34.0 [facility] Comment on above: Performed By: #### 1 4926593, 1771052, 8146872, 5496657, 82904383, 3986303 #### [facility] [address] [place] [address] MCHC (RBC) [Mass/Vol] 34.0 g/dL Normal 31.4-36.0 [facility] Comment on above: Performed By: #### 1 1060562, 7734056, 1559090, 3788699, 53036230, 8395973 #### [facility] [address] [place] [address] MCV (RBC) [Entitic vol] 93.6 fL Normal 80.0-100.0 [facility] Comment on above: Performed By: #### 1 3890304, 1729380, 5857815, 9319466, 45194103, 1079794 #### [facility] [address] [place] [address] Platelet mean volume (Bld) [Entitic vol] 6.9 fL Normal 6.4-10.8 [facility] Comment on above: Performed By: #### 1 4095192, 6568585, 6333838, 6852607, 59550012, 2508630 #### [facility] [address] [place] [address] Platelets (Bld) [#/Vol] 121.0 E9/L Low 150.0-500.0 [facility] Comment on above: Performed By: #### 1 4572493, 7708603, 2333162, 2353581, 03471162, 0327621 #### [facility] [address] [place] [address] RBC (Bld) [#/Vol] 3.6 E12/L Low 4.3-5.9 [facility] Comment on above: Performed By: #### 1 3214104, 2935147, 7627991, 6913826, 19908758, 9403889 #### [facility] [address] [place] [address] WBC corrected for nucl RBC Auto (Bld) [#/Vol] 7.7 E9/L Normal 4.0-11.0 [facility] Comment on above: Performed By: #### 1 5917925, 1013766, 0432600, 5385143, 01085897, 3953308 #### [facility] [address] [place] [place] [address] CHEMISTRYOrdered By: SYSTEM SYSTEM on 01-23-2023 Albumin [Mass/Vol] 3.6 g/dL Normal 3.3 - 5.0 gm/dL [facility] Albumin/Globulin [Mass ratio] 1.2 {ratio} Normal 1.1 - 2.2 [facility] ALP [Catalytic activity/Vol] 50 [iU]/d Normal 21 - 98 Int._Unit/L [facility] ALT No additional P-5'-P [Catalytic activity/Vol] 20 [iU]/d Normal 6 - 46 Int._Unit/L [facility] Anion gap [Moles/Vol] 15 mmol/L Normal 6 - 16 mEq/L [facility] AST [Catalytic activity/Vol] 20 [iU]/d Normal 5 - 43 Int._Unit/L [facility] Bilirubin [Mass/Vol] 0.8 mg/dL Normal 0.0 - 1 .1 mg/dL [facility] Bilirubin.direct [Mass/Vol] 0.2 mg/dL Normal 0.1 - 0.4 mg/dL [facility] Bilirubin.indirect [Mass or moles/Vol] 0.6 mg/dL Normal 0.1 - 0.9 mg/dL [facility] Calcium [Mass/Vol] 8.7 mg/dL Low 8.9 - 11. 1 mg/dL [facility] Chloride [Moles/Vol] 100 mmol/L Low 101 - 1 11 mmol/L [facility] CO2 [Moles/Vol] 25 mmol/L Normal 21 - 31 mmol/L [facility] Creatinine [Mass/Vol] 4.2 mg/dL High 0.5 - 1.3 mg/dL [facility] GFR/1.73 sq M.predicted among non-blacks MDRD (S/P/Bld) [Vol rate/Area] 15 mL/min/1.73 m2 Low >=59mL/min/1 .73 m2 FT [facility] S Globulin (S) [Mass/Vol] 3.0 g/dL Normal 1.4 - 4.0 gm/dL [facility] Glucose [Mass/Vol] 92 mg/dL Normal 55 - 199 mg/dL [facility] Potassium [Moles/Vol] 3.5 mmol/L Normal 3.5 - 5.3 mmol/L [facility] Protein [Mass/Vol] 6.6 g/dL Normal 6.0 - 7.8 gm/dL [facility] Sodium [Moles/Vol] 136 mmol/L Normal 135 - 145 mmol/L [facility] Urea nitrogen [Mass/Vol] 31 mg/dL High 5 - 21 mg/dL [facility] Urea nitrogen/Creatinine [Mass ratio] 7 mg/mg Low 10 - 20 [facility] COAGULATIONOrdered By: Maribell castro Jun on 01-23-2023 aPTT Coag (PPP) [Time] 26.1 s Normal 25.1 - 36.5 second(s) [facility] Auto Coag INR Coag (PPP) [Relative time] 1.0 {INR} Invalid Interpretation Code [facility] Auto Coag PT Coag (PPP) [Time] 10.6 s Normal 9.4 - 1 2.5 second(s) [facility] Auto Coag CT Abdomen/Pelvis w/o Contra ston 01-23-2023 CT Abdomen/Pelvis w/o Contrast Exam Date/Time: 01/23/2023 18:18 EDT Reason for Exam: Abdominal trauma, blunt;Other (please specify) Report IMPRESSION: NO ACUTE TRAUMATIC PATHOLOGY OF THE ABDOMEN/PELVIS. 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 NONOBSTRUCTING BILATERAL RENAL CALCULI. ENLARGED PROSTATE. EXAM: CT Abdomen/Pelvis w/o Contrast with constructed images of the spine History: Left hip pain and swelling since a fall. Technique: Multiple contiguous axial images were obtained of the abdomen and pelvis from the level of the lung bases through the ischial tuberosities without contrast. Multiplanar reformats were obtained. Constructed images of the spine were obtained. Comparison: None available Findings: Lung bases are clear. Lack of intravenous contrast precludes optimal evaluation of the abdominal and pelvic viscera. No definitive findings of the liver or spleen or perihepatic/perisplenic fluid to suggest traumatic injury to these organs on this CT without contrast. The gallbladder, pancreas, and adrenal glands appear within normal limits. Postsurgical changes of the stomach. There are multiple tiny bilateral nonobstructing renal calculi, largest which measures roughly 7 mm. Mild left renal atrophy. No hydronephrosis. Urinary bladder is well distended. The prostate is enlarged. Abdominal aorta is nonaneurysmal. 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 No adjacent hemorrhage. No retroperitoneal or abdominal/pelvic lymphadenopathy. No small bowel obstruction. No overt colonic mass or pericolonic inflammation. Appendix is within normal limits. No free fluid or free air. No acute displaced fracture of the pelvis or visualized portion of either femur. Report CT LUMBAR SPINE: No acute fracture or malalignment. Multilevel degenerative disc disease and facet arthropathy suspected high-grade canal stenosis at L2-L3, L3-L4, and L4-L5. All CT scans at this facility use dose modulation, iterative reconstruction, and/or weight based dosing when appropriate to reduce radiation dose to as low as reasonably achievable. Ordering Provider: Kimberly St FINAL REPORT Dictated: 01/23/2023 6:38 pm Em Dow DO Signed (Electronic Signature): 01/23/2023 6:38 pm Signed by: Em Dow DO Transcribed by: TRUMAN Technologist: GURVINDER Technical Comments Rectal Contrast Given? No Oral contrast amount in ml's: 0 Normal [facility] Consent for Treatmenton Consent for Treatment [id number]: 127 Normal [facility] ED Clinical Summaryon 2022 ED Clinical Summary (Inserted Image. Jaclyn ble to display) [place] [address] ED Clinical Summary Person Information Name: MELE SKY[place] Age: 67 Years : 1955 Sex: Male Language: Ukrainian PCP: IVAN LLOYD DO Marital Status: Visit Id: Visit Reason: Hip pain-swelling; HIP PAIN Speciality: Acuity: 3 Enc Type: Emergency Med Service: Emergency Arrival: 01/23/2023 17:00:59 Discharge: 01/23/2023 19:54:11 LOS: 000 02:54 Checkin: 01/23/2023 17:00:59 Checkout: 01/23/2023 19:54:11 Dispo Type: Home (Routine DC) EVENTS: Event Name Event Status Request Date/Time Start Date/Time Complete Date/Time Arrive Complete 01/23/2023 17:00:59 01/23/2023 17:00:59 01/23/2023 17:00:59 Document Home Meds Request 01/23/2023 17:00:59 Triage Complete 01/23/2023 17:00:59 01/23/2023 17:14:50 01/23/2023 17:14:50 Registration Complete 01/23/2023 17:04:25 01/23/2023 17:04:25 01/23/2023 17:04:25 Reg Complete Request 01/23/2023 17:04:25 Bed Assign Complete 01/23/2023 17:15:11 01/23/2023 17:15:11 01/23/2023 17:15:11 Dr Exam Complete 01/23/2023 17:15:11 01/23/2023 17:35:40 01/23/2023 17:35:40 RN Exam Complete 01/23/2023 17:15:11 01/23/2023 17:30:23 01/23/2023 17:30:23 Trauma II Request 01/23/2023 17:34:38 Registration Complete 01/23/2023 17:35:40 01/23/2023 19:35:40 01/23/2023 19:35:40 Dr Exam Complete 01/23/2023 17:36:40 01/23/2023 17:36:40 01/23/2023 17:36:40 NPO Request 01/23/2023 17:51:19 Pending Labs Request 01/23/2023 17:51:19 Lab Request 01/23/2023 17:51:19 Patient Care Request 01/23/2023 17:51:19 CT Complete 01/23/2023 17:51:19 01/23/2023 18:03:13 01/23/2023 18:18:26 Urine Collect Request 01/23/2023 17:51:19 Pending Labs Complete 01/23/2023 18:58:20 01/23/2023 18:58:20 01/23/2023 19:23:36 Lab Complete 01/23/2023 18:58:20 01/23/2023 18:58:20 01/23/2023 19:23:36 Pending Labs Complete 01/23/2023 19:16:15 01/23/2023 19:16:15 01/23/2023 19:16:23 Lab Complete 01/23/2023 19:16:15 01/23/2023 19:16:15 01/23/2023 19:16:23 Meds Admin Complete 01/23/2023 19:22:11 01/23/2023 19:48:25 Discharge Complete 01/23/2023 19:28:08 01/23/2023 19:54:16 01/23/2023 19:54:16 Transfer Complete 01/23/2023 19:54:16 01/23/2023 19:54:16 01/23/2023 19:54:16 ADDRESS: [facility] [place] [id number] PHYS DOC NOTES: MEDICAL INFORMATION: Prescriptions Given: New Medications [id number], [address] [place], [place] [id number], [phone] oxycodone (oxyCODONE 5 mg Cap) 1 Capsules By Mouth every 6 hours as needed for pain. Refills: 0. predniSONE (predniSONE 10 mg Tab) 1 Tablets By Mouth As Directed. 6 tabs for 2 days,5 tabs for 2 days,4 tabs for 2 days,3 tabs for 2 days,2 tabs for 2 days,1 tab for 2 days. Refills: 0. Medications to Continue with No Changes Other Medications calcium citrate (calcium (as calcium citrate) 200 mg oral tablet) 1 Tablets. furosemide (furosemide 40 mg Tab) 1 Tablets. pantoprazole (Pantoprazole [address] Tab) 1 Tablets. tamsulosin (tamsulosin 0.4 mg Cap) 1 Capsules. PATIENT EDUCATION INFORMATION: Instructions: Joint Pain, Uxed-hr-Bcze; How to Use Cold Therapy, Lwht-er-Pcej; Hip Pain; Fall Prevention in the Home, Adult, Mrxo-wc-Tnia Follow up: With: Address: When: IVAN LLOYD [address] [place] [id number] Business (1) In 3 days 01/26/2023 DIAGNOSIS: 1:Hip swelling; 2:Acute pain of left hip; 3:Degenerative disc disease, lumbar; 4:Accidental fall Normal [facility] ED Note-Physicianon 01-24-20 ED Note-Physician Basic Information Time Seen: Kimberly St PA-C 01/23/2023 17:35 Chief Complaint pt reports he fell around noon while walking to get mail. tripped down a step. left hip pain/swelling. pt reports 02/24 pain, no previous surgeries or injuries to hip. no thinners. no LOC. no head/neck pain. History of Present Illness This patient presents to the emergency department with chief complaint of left hip pain. The patient around noon today walked out to get the mail. He unfortunately stepped on an uneven part of the ground causing him to fall and land on his hip. He has had significant discomfort with weightbearing since then. The patient states at rest he is comfortable, except if he tries to straight leg raise his left lower extremity. He was able to get into the car to come here with the use of a walker. He states he is not having pain at rest. He denies hitting his head. He denies being on any anticoagulation. He denies any other injury. The patient is on dialysis. He did dialyze very early this morning. The patient still does make urine approximately 3 L daily. Review of Systems Constitutional: Denies weight loss, fevers, chills, sweats, malaise Eyes: Denies visual changes, eye pain, double vision, scotomas, floaters ENT: Denies runny nose, epistaxis, sinus pain, ear pain, ringing in ears, tooth ache, sore throat, pain with swallowing Cardiovascular: Denies chest pain, shortness of breath, orthopnea, edema, palpitations, loss of consciousness, claudication Respiratory: Denies cough, sputum production, wheezing, hemoptysis, shortness of breath, dyspnea on exertion Gastrointestinal: Denies abdominal pain, unintentional weight loss, difficulty swallowing, indigestion, bloating, cramping, loss of appetite, nausea, vomiting, diarrhea, constipation, hematochezia, melena Genitourinary: Denies any incontinence of urine, dysuria, hematuria, nocturia, polyuria, hesitancy, frequency, urgency, burning Musculoskeletal: Denies joint pain, morning stiffness, joint swelling, decreased range of motion, crepitus. + left hip pain Integumentary: Denies any pruritus, rashes, lesions, wounds, petechiae Neurologic: Denies any changes in sight, smell, hearing, taste, seizures, headache, paresthesia, numbness, weakness, balance disturbance Psychiatric denies any depression, change in sleep patterns, anxiety, difficulty concentrating, paranoia, anhedonia, lack of energy, cathy Hematologic/lymphatic: Denies any purpura, petechiae, excessive bleeding, bruising Physical Exam Vitals & Measurements T: 37 ?C(Oral) HR: 76(Monitored) RR: 16 BP: 120/72 SpO2: 98% HT: 183 cm WT: 83 kg BMI: 24.78 Trauma exam Vital signs reviewed Primary survey Airway intact Lung sounds clear and equal bilaterally Pulses full and equal to carotid, femoral, radial, dorsalis pedis bilaterally Heart regular rate and rhythm Skin warm, dry, pink GCS 15 Movement and sensation intact to all extremities No visible evidence of trauma Secondary survey General: GCS 15, alert HEENT: Head atraumatic, facial bones stable: Eyes normal inspection, PERRL: No evidence of oropharyngeal trauma; no blood in the nares; tympanic membranes intact, no hemotympanum or drainage NECK: Normal inspection; c-collar in place; no tracheal deviation; no JVD RESP: Normal breath sounds, no wheezes or crackles; no chest wall tenderness, crepitus, or subcutaneous emphysema: No visible evidence of chest wall trauma: Chest rise symmetric; no respiratory distress HEART: Heart rate and rhythm regular: Carotid, radial, femoral, dorsalis pedis pulses +2 and equal bilaterally; no murmurs ABDOMEN: Soft; nontender. No ecchymosis or visible wounds to abdominal wall; no distention, guarding, rigidity, or rebound; pelvis stable, no pain on compression; rectal tone intact; no blood at urethral meatus MSK: Nontender; normal appearance; no tenderness or step-offs to palpation of thoracic or lumbar spine: No ecchymosis or wounds to upper or lower back NEURO: Alert and oriented; sensation intact and symmetric bilaterally; muscle strength symmetric bilaterally SKIN: Color normal; no rash; warm, dry Medical Decision Making MEDICAL DECISION MAKING Number and Complexity of Problems Differential Diagnosis: Left hip fracture, pelvic fracture, spinal fracture, compression fracture, femur fracture MDM Data External documents reviewed: Not applicable My EKG interpretation: Noted in chart if applicable My CT interpretation: Noted in chart if applicable My X-ray interpretation: Noted in chart if applicable My Ultrasound interpretation: Not applicable Decision rules/scores evaluated: Noted in chart if applicable Discussed with: Not applicable Treatment and Disposition ED Course: Patient was interviewed and examined. The appropriate ER work-up was initiated as per ATLS protocol. Patient declined any pain medication at this time. White blood count 7.7, hemoglobin 11.4, hematocrit 33.5, platelets 121. Sodium 13 (more content not included)... Normal [facility] Comment on above: Result Comment: Elec tronically Signed By: Kimberly St PA-C\.br\Date and Time Signed: 01/23/23 19:56 EDT\.br\Electronically Co-Signed By: Naun Abbasi DO\.br\Date and Time Co-Signed: 01/23/23 20:53 EDT ED Patient Education Noteon 01-23-2023 ED Patient Education Note Caregiving Fall Prevention in the Home, Adult Falls can cause injuries and can happen to people of all ages. There are many things you can do to make your home safe and to help prevent falls. Ask for help when making these changes. What actions can I take to prevent falls? General Instructions ? Use good lighting in all rooms. Replace any light bulbs that burn out. ? Turn on the lights in dark areas. Use night-lights. ? Keep items that you use often in uvla-ci-ojgoi places. Lower the shelves around your home if needed. ? Set up your furniture so you have a clear path. Avoid moving your furniture around. ? Do not have throw rugs or other things on the floor that can make you trip. ? Avoid walking on wet floors. ? If any of your floors are uneven, fix them. ? Add color or contrast paint or tape to clearly luis angel and help you see: ? Grab bars or handrails. ? First and last steps of staircases. ? Where the edge of each step is. ? If you use a stepladder: ? Make sure that it is fully opened. Do not climb a closed stepladder. ? Make sure the sides of the stepladder are locked in place. ? Ask someone to hold the stepladder while you use it. ? Know where your pets are when moving through your home. What can I do in the bathroom? ? Keep the floor dry. Clean up any water on the floor right away. ? Remove soap buildup in the tub or shower. ? Use nonskid mats or decals on the floor of the tub or shower. ? Attach bath mats securely with double-sided, nonslip rug tape. ? If you need to sit down in the shower, use a plastic, nonslip stool. ? Install grab bars by the toilet and in the tub and shower. Do not use towel bars as grab bars. What can I do in the bedroom? ? Make sure that you have a light by your bed that is easy to reach. ? Do not use any sheets or blankets for your bed that hang to the floor. ? Have a firm chair with side arms that you can use for support when you get dressed. What can I do in the kitchen? ? Clean up any spills right away. ? If you need to reach something above you, use a step stool with a grab bar. ? Keep electrical cords out of the way. ? Do not use floor maltese or wax that makes floors slippery. What can I do with my stairs? ? Do not leave any items on the stairs. ? Make sure that you have a light switch at the top and the bottom of the stairs. ? Make sure that there are handrails on both sides of the stairs. Fix handrails that are broken or loose. ? Install nonslip stair treads on all your stairs. ? Avoid having throw rugs at the top or bottom of the stairs. ? Choose a carpet that does not hide the edge of the steps on the stairs. ? Check carpeting to make sure that it is firmly attached to the stairs. Fix carpet that is loose or worn. What can I do on the outside of my home? ? Use bright outdoor lighting. ? Fix the edges of walkways and driveways and fix any cracks. ? Remove anything that might make you trip as you walk through a door, such as a raised step or threshold. ? Trim any bushes or trees on paths to your home. ? Check to see if handrails are loose or broken and that both sides of all steps have handrails. ? Install guardrails along the edges of any raised decks and porches. ? Clear paths of anything that can make you trip, such as tools or rocks. ? Have leaves, snow, or ice cleared regularly. ? Use sand or salt on paths during winter. ? Clean up any spills in your garage right away. This includes grease or oil spills. What other actions can I take? ? Wear shoes that: ? Have a low heel. Do not wear high heels. ? Have rubber bottoms. ? Feel good on your feet and fit well. ? Are closed at the toe. Do not wear open-toe sandals. ? Use tools that help you move around if needed. These include: ? Canes. ? Walkers. ? Scooters. ? Crutches. ? Review your medicines with your doctor. Some medicines can make you feel dizzy. This can increase your chance of falling. Ask your doctor what else you can do to help prevent falls. Where to find more information ? Centers for Disease Control and Prevention, [employer]: www.cdc.gov ? National [place] on Aging: www.rani.nih.gov Contact a doctor if: ? You are afraid of falling at home. ? You feel weak, drowsy, or dizzy at home. ? You fall at home. Summary ? There are many simple things that you can do to make your home safe and to help prevent falls. ? Ways to make your home safe include removing things that can make you trip and installing grab bars in the bathroom. ? Ask for help when making these changes in your home. This information is not intended to replace advice given to you by your health care provider. Make sure you discuss any questions you have with your health care provider. Document Revised: 02/03/2022 Document Reviewed: 2020 [employer] Patient Education ? 2022 [employer] Orthopedics Joint Pain (In (more content not included)... Normal [facility] ED Patient Summaryon 023 ED Patient Summary (Inserted Image. Jaclyn ble to display) [address] [address] Patient Discharge Instructions Person Information Name: MELE SKY Age: 67 Years Arrival Date: 01/23/2023 17:00:59 Discharge Diagnosis: 1:Hip swelling; 2:Acute pain of left hip; 3:Degenerative disc disease, lumbar; 4:Accidental fall Primary Care Physician: IVAN LLOYD DO Provider Information Primary Provider: Naun Abbasi DO Advanced [employer] Helicopter Pilot:None The exam and treatment you received in the Emergency Department were for an urgent problem and are not intended as complete care. It is important that you follow up with a doctor, nurse practitioner, or physician?s aquatics assistant department head for ongoing care. If your symptoms become worse or you do not improve as expected and you are unable to reach your usual health care provider, you should return to the Emergency Department. We are available 24 hours a day. MELE SKY has been given the following list of patient education materials, prescriptions and follow-up instructions: Follow-up Instructions: With: Address: When: IVAN LLOYD [address] [place], [place] [id number] [facility] [facility] () In 3 days 01/26/2023 In the event that this physician does not participate in your insurance network, please consult with your insurance company to find a nearby participating provider. Patient Education Materials: Joint Pain, Jbzn-fb-[id number]; How to Use Cold Therapy, Vkuh-qf-Cfqd; Hip Pain; Fall Prevention in the Home, Adult, Fqqo-ff-Gpbp A MESSAGE TO ALL PATIENTS REGARDING OPIOIDS PRESCRIPTION OPIOIDS: WHAT YOU NEED TO KNOW Prescription opioids can be used to help relieve cekzonxm-ah-hfbewn pain and are often prescribed following a surgery or injury, or for certain health conditions. These medications can be an important part of the treatment but also come with serious risks. It is important to work with your healthcare provider to make sure you are getting the safest, most effective care. WHAT ARE THE RISKS AND SIDE EFFECTS OF OPIOID USE? Prescription opioids carry serious risks of addiction and overdose, especially with prolonged use. An opioid overdose, often marked by slowed breathing, can cause sudden . The use of prescription opioids can have a number of side effects as well, even when taken as directed: ? Tolerance?meaning you might need to take more of the medication for the same pain relief ? Physical dependence?meaning you have symptoms of withdrawal when a medication is stopped ? Increased sensitivity to pain ? Constipation ? Nausea, vomiting, and dry mouth ? Sleepiness and dizziness ? Confusion ? Depression ? Low levels of testosterone that can result in lower sex drive, energy, and strength ? Itching and sweating RISKS ARE GREATER WITH: ? History of drug misuse, substance use disorder, or overdose ? Mental health conditions (such as depression or anxiety) ? Sleep apnea ? Older age (65 years and older) ? Avoid alcohol while taking prescription opioids. Also, unless specifically advised by your health care provider, medications to avoid include: ? Benzodiazepines (such as Xanax or Valium) ? Muscle relaxants (such as Soma or Flexeril) ? Hypnotics (such as Ambien or Lunesta) ? Other prescription opioids KNOW YOUR OPTIONS Talk to your health care provider about ways to manage your pain that don?t involve prescription opioids. Some of these options may actually work better and have fewer risks and side effects. Options may include: ? Pain relievers such as acetaminophen, ibuprofen, and naproxen ? Some medication that are also used for depression or seizures ? Physical therapy and exercise ? Cognitive behavioral therapy, a psychological, goal-directed approach, in which patients learn how to modify physical, behavioral, and emotional triggers of pain and stress. IF YOU ARE PRESCRIBED OPIOIDS FOR PAIN: ? Never take opioids in greater amounts or more often than prescribed. ? Follow up with your primary health care provider. o Work together to create a plan on how to manage your pain. o Talk about ways to help manage your pain that don?t involve prescription opioids. o Talk about any and all concerns and side effects. ? Help prevent misuse and abuse o Never sell or share prescription opioids. o Never use another person?s prescription opioids. ? Store prescription opioids in a secure place and out of reach of others (this may include visitors, children, friends, and family). ? Safely dispose of unused prescription opioids: Find your community drug take-back program or your pharmacy mail-back program, or flush them down the toilet, following guidance from the Food and Drug Administration (www.fda.gov/Drugs/Resou rcesForYou). ? Visit www.cdc.gov/drugoverdose to learn about the risks of opioids abuse and overdose. ? If you believe you may be (more content not included)... Normal [facility] HEMATOLOGYOrdered By: SYSTEM SYSTEM on 01-23-2023 Basophils/100 WBC (Bld) 0.2 % Normal 0.0 - 2.0 % [facility] HemeAutoSS Basophils/Leukocytes Auto (Bld) [Pure # fraction] 0.0 E9/L Normal 0.0 - 0.2 E9/L [facility] Eosinophils/100 WBC (Bld) 2.2 % Normal 0.0 - 8.0 % [facility]Auto[facility] Eosinophils/Leukocyte s Auto (Bld) [Pure # fraction] 0.2 E9/L Normal 0.0 - 0.5 E9/L [facility] Lymphocytes/100 WBC (Bld) 11.3 % Low 14.0 - 50.0 % [facility]Auto[facility] Lymphocytes/Leukocyte s Auto (Bld) [Pure # fraction] 0.9 E9/L Low 1.0 - 4.0 E9/L [facility] Monocytes/100 WBC (Bld) 7.8 % Normal 4.0 - 14.0 % [facility]Auto[facility] Monocytes/Leukocytes Auto (Bld) [Pure # fraction] 0.6 E9/L Normal 0.2 - 1.0 E9/L [facility] Neutrophils/100 WBC (Bld) 78.5 % High 36.0 - 75.0 % [facility]Auto[facility] Neutrophils/Leukocyte s Auto (Bld) [Pure # fraction] 6.1 E9/L Normal 2.0 - 7.5 E9/L [facility] HEMATOLOGYOrdered By: Mohan Tobar on 01-23-2023 Erythrocyte distribution width (RBC) [Ratio] 16.2 % High 10.9 - 14.2 % [facility] Hematocrit (Bld) [Volume fraction] 33.5 % Low 37.7 - 49.0 % [facility] Hemoglobin (Bld) [Mass/Vol] 11.4 g/dL Low 13.5 - 17.5 gm/dL [facility] MCH (RBC) [Entitic mass] 31.8 pg Normal 27.0 - 34.0 pg [facility] MCHC (RBC) [Mass/Vol] 34.0 g/dL Normal 31.4 - 36.0 gm/dL [facility] HemeAutoSS MCV (RBC) [Entitic vol] 93.6 fL Normal 80.0 - 100.0 fL [facility]eAutoSS Platelet mean volume (Bld) [Entitic vol] 6.9 fL Normal 6.4 - 10.8 fL [facility]eAutoSS Platelets (Bld) [#/Vol] 121.0 E9/L Low 150.0 - 500.0 E9/L [facility] RBC (Bld) [#/Vol] 3.6 E12/L Low 4.3 - 5.9 E12/L [facility]eAutoSS WBC corrected for nucl RBC Auto (Bld) [#/Vol] 7.7 E9/L Normal 4.0 - 11.0 E9/L [facility] HemeAutoSS Hep Func Panelon 01-23-2023 Albumin [Mass/Vol] 3.6 g/dL Normal 3.3-5.0 [facility] Comment on above: Performed By: #### 1 [id number], 3844264, 6917087, 7205075, [id number], 6477142 #### [facility] [address] [place] [address] Albumin/Globulin (S) [Mass conc ratio] 1.2 Normal 1.1-2.2 [facility] Comment on above: Performed By: #### 1 1408930, 1100955, 3244238, 9035046, 84258743, 2334663 #### [facility] [address] [place] [address] ALP [Catalytic activity/Vol] 50 Int._Unit/L Normal 21-98 [facility] Comment on above: Performed By: #### 1 3753814, 8711862, 1708053, 8186227, 09104305, 8526457 #### [facility] [address] [place] [address] ALT No additional P-5'-P [Catalytic activity/Vol] 20 Int._Unit/L Normal 6-46 [facility] Comment on above: Performed By: #### 1 [id number], 5904174, 9335722, 9367519, 71828889, 3650555 #### [facility] [address] [place] [address] AST [Catalytic activity/Vol] 20 Int._Unit/L Normal 5-43 [facility] Comment on above: Performed By: #### 1 2914411, 3141657, 1955590, 2167156, 94645759, 0488420 #### [facility] [address] [place] [address] Bilirubin [Mass/Vol] 0.8 mg/dL Normal 0.0-1.1 [facility] Comment on above: Performed By: #### 1 0116734, 3252608, 2790398, 3102700, 45750198, 1547959 #### [facility] [address] [place] [address] Bilirubin.direct [Mass/Vol] 0.2 mg/dL Normal 0.1-0.4 [facility] Comment on above: Performed By: #### 1 0157535, 5750862, 6076336, 2629396, 35398507, 1502898 #### [facility] [address] [place] [address] Bilirubin.indirect [Mass or moles/Vol] 0.6 mg/dL Normal 0.1-0.9 [facility] Comment on above: Performed By: #### 1 2222589, 7900360, 7963917, 8150771, 35028209, 5657170 #### [facility] [address] [place] [address] Globulin (S) [Mass/Vol] 3.0 g/dL Normal 1.4-4.0 [facility] Comment on above: Performed By: #### 1 8007611, 3220579, 4472837, 5429027, 83107484, 8645917 #### [facility] [address] [place] [address] Protein [Mass/Vol] 6.6 g/dL Normal 6.0-7.8 [facility] Comment on above: Performed By: #### 1 0284905, 5549611, 4651594, 0188984, 40054318, 9448362 #### [facility] [address] [place] [address] PT & PTTon 01-23-2023 aPTT Coag (PPP) [Time] 26.1 second(s) Normal 25.1-36.5 [facility] Comment on above: Result Comment: Para meter 15 days - 4 weeks 1 - 5 months 6 - 11 months 1 - 5 years 6 - 10 years 11 - 17 years PTT Mean: 35.4 (27.6-45.6) Mean: 33.5 (24.8-40.7) Mean: 32.4 (25.1-40.7) Mean: 31.6 (24.0-39.2) Mean: 31.6 (26.9-38.7) Mean: 31.0 (24.6-38.4) Pediatric Reference ranges were obtained from a study by keri Jenkins al. prepared from 1437 samples obtained at 7 different centers using the same coagulation reagent and instrumentation as [facility]. Currently there are no coagulation studies available worldwide for children to 14 days, and no normal ranges. Heparin therapeutic range (represented by Anti-Factor Xa activity of 0.2 - 0.4 U/mL) corresponds to PTT of 56.6 - 109.0 sec. Performed By: #### 1 [id number], 0857878, 4746712, 5154037, 56210307, 0559893 #### [facility] [address] [place] [address] INR Coag (PPP) [Relative time] 1.0 {INR} Invalid Interpretation Code [facility] Comment on above: Result Comment: INR results are specifically intended to assess patients stabilized on long-term Anticoagulation therapy suggested INR?s ?Less Intensive Anticoagulation? 2.0 ? 3.0 Conventional Range 3.0 ? 4.5 Performed By: #### 1 7967744, 5984767, 2381041, 6426372, 49454505, 6917478 #### [facility] [address] [place] [address] PT Coag (PPP) [Time] 10.6 second(s) Normal 9.4-12.5 [facility] Comment on above: Result Comment: 15 d ays - 4 weeks 1 - 5 months 6 -11 months 1- 5 years 6-10 years 11 -17 years Mean: 11.2 (9.5-12.6) Mean: 11.0 (9.7-12.8) Mean: 11.0 (9.8-13.0) Mean: 11.3 (9.9-13.4) Mean: 11.7 (10.0-14.6) Mean: 11.8 (10.0 - 14.1) Pediatric Reference ranges were obtained from a study by Thor Jameson et al. prepared from 1437 samples obtained at 7 different centers using the same coagulation reagent and instrumentation as [facility]. Currently there are no coagulation studies available worldwide for children to 14 days, and no normal ranges. Performed By: #### 1 9496438, 7830500, 4787063, 2505858, 40621935, 8908207 #### [facility] [address] [place] [address] eGFRon 01-23-2023 GFR/1.73 sq M.predicted among non-blacks MDRD (S/P/Bld) [Vol rate/Area] 15 mL/min/1.73 m2 Low >=59 [facility] Comment on above: Order Comment: Order added by Discern Expert. Result Comment: [place] Rough Opener nereida kidney disease could be indicated at eGFR's of less than 60 mL/min/1.73m2. Kidney failure is indicated at less than 15 mL/min/1.73m2. Performed By: #### 1 [id number], 2114801, 7749664, 4919689, 20988134, 6517763 #### [facility] [address] [place] [address] Arterial blood standard base excess determination by calculationOrdered By: Rodrigo Miller on 01-22-2023 Base excess standard Calc (BldA) [Moles/Vol] 2 mmol/L -2-3 [facility] Basic Metabolic Panelon 09-0 Anion gap [Moles/Vol] 15.8 mmol/L High 6.0-15.0 [facility] Comment on above: Performed By: #### B MP ####[address] [place] [address] [facility] Calcium [Mass/Vol] 9.1 mg/dL Normal 8.6-10.3 [facility] Comment on above: Performed By: #### B MP ####[address] [place] [address] [facility] Chloride [Moles/Vol] 98 mmol/L Normal 98-107 [facility] Comment on above: Performed By: #### B MP ####[address] [place] [address] [facility] CO2 [Moles/Vol] 28.1 mmol/L Normal 21.0-31.0 [facility] Comment on above: Performed By: #### B MP ####[address] [place] [address] [facility] Creatinine [Mass/Vol] 5.95 mg/dL High 0.70-1.30 [facility] Comment on above: Performed By: #### B MP ####[address] [place] [address] [place] Creatinine Clr Calc [facility]acy 13.59 [facility] Comment on above: Result Comment: PERF ORMED BY: [facility] [address] [place] [id number] PATHOLOGIST SCRUBBING MACHINE OPERATOR RADHA PETERSON M.D. Performed By: #### B MP ####[id number] [facility] GFR/1.73 sq M.predicted MDRD (S/P/Bld) [Vol rate/Area] 9.826 mL/min/{1.73_m2} [facility] Comment on above: Performed By: #### B MP ####[address] [place] [id number] [facility] Glucose [Mass/Vol] 85 mg/dL Normal 70-100 [facility] Comment on above: Result Comment: [place] Glucose Reference Range is dependent on time and content of last meal. Glucose of more than 200 mg/dL in a nonstressed, ambulatory subject supports the diagnosis of Diabetes Mellitus. ADA recommended reference range Performed By: #### B MP ####[facility] Potassium [Moles/Vol] 3.9 mmol/L Normal 3.5-5.1 [facility] Comment on above: Performed By: #### B MP ####[address] [place] [address] Sodium [Moles/Vol] 138 mmol/L Normal 136-145 [facility] Comment on above: Performed By: #### B MP ####[address] [place] [address] Urea nitrogen [Mass/Vol] 47 mg/dL High 7-25 [facility] Comment on above: Performed By: #### B MP ####[address] Basophils Auto (Bld) [#/Vol] Ordered By: Pako Houston on 01-22-2023 Basophils (Bld) [#/Vol] 0.0 10*3/uL 0.0-0.2 [facility] Basophils/100 WBC Auto (Bld) Ordered By: Pako Houston on 01-22-2023 Basophils/100 WBC (Bld) 0.9 % . [facility] Blood carbon dioxide, total measurement by calculation (moles/volume)Ordered By: Rodrigo Miller on 01-22-2023 CO2 Calc (Bld) [Moles/Vol] 28 mmol/L 23-29 [facility] CT biopsyOrdered By: Rodrigo Miller on 01-22-2023 Hematocrit (Bld) [Volume fraction] 34.0 % 38.0-51.0 [facility] Calcium [Mass/volume] in Ser um or PlasmaOrdered By: Pako Houston on 01-22-2023 Calcium [Mass/Vol] 9.1 mg/dL 8.6-10.3 [facility] Carbon dioxide, total [Moles /volume] in Serum or PlasmaOrdered By: Pako Houston on 09-07-2023 CO2 [Moles/Vol] 28.1 mmol/L 21.0-31.0 [facility] Chloride [Moles/volume] in S franky or PlasmaOrdered By: Pako Houston on 01-22-2023 Chloride [Moles/Vol] 98 mmol/L 98-107 [facility] Complete Blood Count Auto Di ffon 01-22-2023 Basophils (Bld) [#/Vol] 0.0 10*3/uL Normal 0.0-0.2 [facility] Comment on above: Result Comment: PERF ORMED BY: [facility] [address] [place] [address] PATHOLOGIST SCRUBBING MACHINE OPERATOR RADHA PETERSON M.D. Performed By: #### C BC ####[address] Basophils/100 WBC (Bld) 0.9 % Normal . [facility] Comment on above: Performed By: #### C BC ####[address] Eosinophils (Bld) [#/Vol] 0.3 10*3/uL Normal 0.0-0.45 [facility] Comment on above: Performed By: #### C BC ####[address] Eosinophils/100 WBC (Bld) 7.7 % Normal . [facility] Comment on above: Performed By: #### C BC ####[address] Erythrocyte distribution width (RBC) [Ratio] 16.3 % High 12.0-14.8 [facility] Comment on above: Performed By: #### C BC ####[address] Hematocrit (Bld) [Volume fraction] 33.1 % Low 38.8-50.0 [facility] Comment on above: Performed By: #### C BC ####[address] Hemoglobin (Bld) [Mass/Vol] 11.0 g/dL Low 13.0-17.0 [facility] Comment on above: Performed By: #### C BC ####[address] Lymphocytes (Bld) [#/Vol] 1.1 10*3/uL Normal 1.00-4.8 [facility] Comment on above: Performed By: #### C BC ####[address] Lymphocytes/100 WBC (Bld) 25.2 % Normal . [facility] Comment on above: Performed By: #### C BC ####[address] MCH (RBC) [Entitic mass] 31.4 pg Normal 27.5-35.2 [facility] Comment on above: Performed By: #### C BC ####[address] MCV (RBC) [Entitic vol] 94.2 fL Normal 83.5-101 [facility] Comment on above: Performed By: #### C BC ####[address] Mean Corpuscular HGB Conc 33.3 g/dL Normal 32.5-35.6 [facility] Comment on above: Performed By: #### C BC ####[address] Monocytes (Bld) [#/Vol] 0.6 10*3/uL Normal 0.0-0.8 [facility] Comment on above: Performed By: #### C BC ####[address] Monocytes/100 WBC (Bld) 13.2 % Normal . [facility] Comment on above: Performed By: #### C BC ####[address] Neutrophils (Bld) [#/Vol] 2.3 10*3/uL Normal 1.8-7.7 [facility] Comment on above: Performed By: #### C BC ####[facility] [place] [address] [facility] Neutrophils/100 WBC (Bld) 53.0 % Normal . [facility] Comment on above: Performed By: #### C BC ####[facility] [place] [address] [facility] NRBC% 0.0 /100{WBC} Normal 0-0.5 [facility] Comment on above: Performed By: #### C BC ####[address] [place] [address] [facility] Platelet mean volume (Bld) [Entitic vol] 6.9 fL Normal 6.6-10.1 [facility] Comment on above: Performed By: #### C BC ####[address] [place] [address] [facility] Platelets (Bld) [#/Vol] 145 10*3/uL Low 150-450 [facility] Comment on above: Performed By: #### C BC ####[facility] [place] [address] [facility] RBC (Bld) [#/Vol] 3.51 10*6/uL Low 3.90-5.60 [facility] Comment on above: Performed By: #### C BC ####[facility] [place] [address] [facility] WBC (Bld) [#/Vol] 4.4 10*3/uL Normal 4.1-10.5 [facility] Comment on above: Performed By: #### C BC ####[address] [address] [facility] Creatinine [Mass/volume] in Serum or PlasmaOrdered By: Pako Houston on 01-22-2023 Creatinine [Mass/Vol] 5.95 mg/dL 0.70-1.30 [facility] ECG 12 lead ECGon 01-22-2023 ECG 12 lead ECG [facility] [address] [place] [address] Electrocardiograph Report Signed Patient: Mele Sky MR#: [id number] : 1955 Acct:[id number] Age/Sex: 67 / M ADM Date: 01/22/23 Loc: [place] Room: Type: [facility] Attending Dr: Rodrigo Miller MD Ordering Provider: Pako Houston MD Date of Service: 01/22/2312/07/808 ECG/ECG 12 lead ECG: preop Copies to: Test Reason : Blood Pressure : / mmHG Vent. Rate : 064 BPM Atrial Rate : 064 BPM P-R Int : 172 ms QRS Dur : 170 ms QT Int : 470 ms P-R-T Axes : 074 -73 052 degrees QTc Int : 484 ms Normal sinus rhythm Right bundle branch block Left anterior fascicular block Bifascicular block Abnormal ECG No previous ECGs available Confirmed by MARY BARTH MD ([id number]) on 01/23/2023 1:17:28 PM Referred By: Electronically Signed By:MARY BARTH MD Transcribed By: MUS Signed By Mary Barth MD 0 01/23/23 1317 Normal [facility] Eosinophils Auto (Bld) [#/Vo l]Ordered By: Pako Houston on 01-22-2023 Eosinophils (Bld) [#/Vol] 0.3 10*3/uL 0.0-0.45 [facility] Eosinophils/100 WBC Auto (Bl d)Ordered By: Pako Houston on 01-22-2023 Eosinophils/100 WBC (Bld) 7.7 % . [facility] Erythrocyte distribution wid th Auto (RBC) [Ratio]Ordered By: Pako Houston on 01-22-2023 Erythrocyte distribution width (RBC) [Ratio] 16.3 % 12.0-14.8 [facility] Glucose Glucometer (BldC) [M ass/Vol]Ordered By: Rodrigo Miller on 01-22-2023 Glucose [Mass/Vol] 80 mg/dL 70-105 [facility] Glucose [Mass/volume] in Ser um or PlasmaOrdered By: Pako Houston on 01-22-2023 Glucose [Mass/Vol] 85 mg/dL 70-100 [facility] Comment on above: ADA recommended refe rence rangeRandom Glucose Reference Range is dependent on time and content of last meal. Glucose of more than 200 mg/dL in a nonstressed, ambulatory subject supports the diagnosis of Diabetes Mellitus. Hematocrit Auto (Bld) [Volum e fraction]Ordered By: Pako Houston on 01-22-2023 Hematocrit (Bld) [Volume fraction] 33.1 % 38.8-50.0 [facility] Hemoglobin Calc (Bld) [Mass/ Vol]Ordered By: Rodrigo Miller on 01-22-2023 Hemoglobin (Bld) [Mass/Vol] 11.6 g/dL 12.0-17.0 [facility] Hemoglobin [Mass/volume] in BloodOrdered By: Pako Houston on 01-22-2023 Hemoglobin (Bld) [Mass/Vol] 11.0 g/dL 13.0-17.0 [facility] ISTAT ABGon 01-22-2023 CO2 [Moles/Vol] 28 mmol/L Normal 23-29 [facility] Comment on above: Performed By: #### I SABG ####[place] [address] Glucose [Mass/Vol] 80 mg/dL Normal 70-105 [facility] Comment on above: Result Comment: PERF ORMED BY: [facility] [address] [place] [id number] PATHOLOGIST SCRUBBING MACHINE OPERATOR RADHA PETERSON M.D. Performed By: #### I SABG ####[address] [place] [id number] [facility] HCO3 (Bld) [Moles/Vol] 26.8 mmol/L Normal 22.0-28.0 [facility] Comment on above: Performed By: #### I SABG ####[address] [place] [id number] [facility] Hematocrit (Bld) [Volume fraction] 34.0 % Low 38.0-51.0 [facility] Comment on above: Performed By: #### I SABG ####[address] [address] [facility] Hemoglobin (Bld) [Mass/Vol] 11.6 g/dL Low 12.0-17.0 [facility] Comment on above: Performed By: #### I SABG ####[address] [address] [facility] ISTAT Base Excess 2 mmol/L Normal -2 TO 3 [facility] Comment on above: Performed By: #### I SABG ####[address] [address] [facility] ISTAT Ionized Calcium 1.10 mol/L Low 1.12-1.32 [facility] Comment on above: Performed By: #### I SABG ####[address] [address] [facility] ISTAT PCO2 41.0 mm[Hg] Normal 35-51 [facility] Comment on above: Performed By: #### I SABG ####[address] [address] [facility] ISTAT Ph 7.422 Normal 7.31-7.45 [facility] Comment on above: Performed By: #### I SABG ####[address] [address] [facility] ISTAT PO2 45 mm[Hg] Low 80-105 [facility] Comment on above: Performed By: #### I SABG ####[address] [address] [facility] Oxygen saturation in Blood 81 % Low 95-98 [facility] Comment on above: Result Comment: Refe rence ranges reflect baseline specimens only Performed By: #### I SABG ####[address] [address] [facility] Potassium [Moles/Vol] 3.7 mmol/L Normal 3.5-4.9 [facility] Comment on above: Performed By: #### I SABG ####[address] [address] [facility] Sodium [Moles/Vol] 138 mmol/L Normal 138-146 [facility] Comment on above: Performed By: #### I SABG ####[facility] [id number] [place] [address] [facility] Leukocytes [#/volume] correc db for nucleated erythrocytes in Blood by Automated counOrdered By: Pako Houston on 01-22-2023 WBC corrected for nucl RBC Auto (Bld) [#/Vol] 4.4 10*3/uL 4.1-10.5 [facility] Lymphocytes Auto (Bld) [#/Vo l]Ordered By: Pako Houston on 01-22-2023 Lymphocytes (Bld) [#/Vol] 1.1 10*3/uL 1.00-4.8 [facility] Lymphocytes/100 WBC Auto (Bl d)Ordered By: Pako Houston on 01-22-2023 Lymphocytes/100 WBC (Bld) 25.2 % . [facility] MCH Auto (RBC) [Entitic mass ]Ordered By: Pako Houston on 01-22-2023 MCH (RBC) [Entitic mass] 31.4 pg 27.5-35.2 [facility] MCHC Auto (RBC) [Mass/Vol]Or dered By: Pako Houston on 01-22-2023 MCHC (RBC) [Mass/Vol] 33.3 g/dL 32.5-35.6 [facility] MCV Auto (RBC) [Entitic vol] Ordered By: Pako Houston on 01-22-2023 MCV (RBC) [Entitic vol] 94.2 fL 83.5-101 [facility] Monocyte %Ordered By: Cassandra Miller on 01-22-2023 Monocyte % 41.0 mm[Hg] 35-51 [facility] Monocyte % 45 mm[Hg] 80-105 [facility] Monocytes Auto (Bld) [#/Vol] Ordered By: Pako Houston on 01-22-2023 Monocytes (Bld) [#/Vol] 0.6 10*3/uL 0.0-0.8 [facility] Monocytes/100 WBC Auto (Bld) Ordered By: Pako Houston on 01-22-2023 Monocytes/100 WBC (Bld) 13.2 % . [facility] Neutrophils Auto (Bld) [#/Vo l]Ordered By: Pako Houston on 01-22-2023 Neutrophils (Bld) [#/Vol] 2.3 10*3/uL 1.8-7.7 [facility] Neutrophils/100 WBC Auto (Bl d)Ordered By: Pako Houston on 01-22-2023 Neutrophils/100 WBC (Bld) 53.0 % . [facility] No Panel InformationOrdered By: Pako Houston on 01-22-2023 Estimated GFR (CKD-EPI) 9.826 mL/Min [facility] Creatinine Clearance (Chem 13.59 [facility] Nucleated erythrocytes [Pres ence] in Blood by Automated countOrdered By: Pako Houston on 01-22-2023 Nucleated RBC Auto Ql (Bld) 0.0 /100{WBC} 0-0.5 [facility] Platelet mean volume Auto (B ld) [Entitic vol]Ordered By: Pako Houston on 01-22-2023 Platelet mean volume (Bld) [Entitic vol] 6.9 fL 6.6-10.1 [facility] Platelets Auto (Bld) [#/Vol] Ordered By: Pako Houston on 01-22-2023 Platelets (Bld) [#/Vol] 145 10*3/uL 150-450 [facility] Potassium (Bld) [Moles/Vol]O rdered By: Rodrigo Miller on 01-22-2023 Potassium [Moles/Vol] 3.7 mmol/L 3.5-4.9 [facility] Potassium [Moles/volume] in Serum or PlasmaOrdered By: Pako Houston on 01-22-2023 Potassium [Moles/Vol] 3.9 mmol/L 3.5-5.1 [facility] RBC Auto (Bld) [#/Vol]Ordere d By: Pako Houston on 01-22-2023 RBC (Bld) [#/Vol] 3.51 10*6/uL 3.90-5.60 [facility] Serum or plasma anion gap de terminationOrdered By: Pako Houston on 01-22-2023 Anion gap [Moles/Vol] 15.8 mmol/L 6.0-15.0 [facility] Sodium (Bld) [Moles/Vol]Orde red By: Rodrigo Miller on 01-22-2023 Sodium [Moles/Vol] 138 mmol/L 138-146 [facility] Sodium [Moles/volume] in Ser um or PlasmaOrdered By: Pako Houston on 01-22-2023 Sodium [Moles/Vol] 138 mmol/L 136-145 [facility] Urea nitrogen [Mass/volume] in Serum or PlasmaOrdered By: Pako Houston on 01-22-2023 Urea nitrogen [Mass/Vol] 47 mg/dL 7-25 [facility] WBC Auto (Bld) [#/Vol]Ordere d By: Pako Houston on 01-22-2023 WBC (Bld) [#/Vol] 4.4 10*3/uL 4.1-10.5 [facility] Whole blood bicarbonate yanet urementOrdered By: Rodrigo Miller on 01-22-2023 HCO3 (Bld) [Moles/Vol] 26.8 mmol/L 22.0-28.0 [facility] Whole blood ionized calcium measurement (moles/volume)Ordered By: Rodrigo Miller on 01-22-2023 Calcium.ionized (Bld) [Moles/Vol] 1100 mmol/L 1.12-1.32 [facility] Whole blood oxygen saturatio n measurementOrdered By: Rodrigo Miller on 01-22-2023 Oxygen saturation in Blood 81 % 95-98 [facility] Comment on above: Reference ranges ref lect baseline specimens only Whole blood pHOrdered By: Parminder Miller on 01-22-2023 pH (Bld) 7.422 Units 7.31-7.45 [facility] Screenson 11-28-2022 Screens [id number] :127 [facility] Screens [id number] :127 [facility] Ambulatory Visit Summaryon 0 11-27-2022 Ambulatory Visit Summary MELE SKY :1955 Visit Date:11/27/2022 Ambulatory Visit Instructions Your Diagnosis Prostatitis BPH with urinary obstruction History of urinary retention Kidney stones Tests Performed Urnls Dip Stick Auto w/o Microscopy POC 74201 Your Care Team Attending Physician - Barby Shirley MD Primary Care Physician - GABINO SAHA IVAN This Is Your Medications List Contact prescribing physician if questions or concerns calcium citrate (calcium (as calcium citrate) 200 mg oral tablet) furosemide (furosemide 40 mg Tab) pantoprazole (Pantoprazole [address] Tab) tamsulosin (tamsulosin 0.4 mg Cap) Procedures Performed Colonoscopy, Gastric bypass, History of hernia repair. Discharge Vitals Heart Rate (Peripheral) 98 Blood Pressure 101/63 Height 184 cm Height 72 in Weight 83.5 kg Weight 183.7 lb BMI 24.66 What to do next Scheduled Follow-Up Appointments 2022 10:15 AM EDT With: Barby Shirley MD Where: [facility] Patient Educationon 11-28-19 23 Patient Education Infectious Disease Prostatitis Prostatitis is swelling or inflammation of the prostate gland, also called the prostate. This gland is about 1.5 inches wide and 1 inch high, and it is involved in making semen. The prostate is located below a man's bladder, in front of the rectum. There are four types of prostatitis: ? Chronic prostatitis (CP), also called chronic pelvic pain syndrome (CPPS). This is the most common type of prostatitis. It is associated with increased muscle tone in the area between the hip bones (pelvic area), around the prostate. This type is also known as a pelvic floor disorder. ? Chronic bacterial prostatitis. This type usually results from an acute bacterial infection in the prostate gland that keeps coming back or has not been treated properly. The symptoms are less severe than those caused by acute bacterial prostatitis, which lasts a shorter time. ? Asymptomatic inflammatory prostatitis. This type does not have symptoms and does not need treatment. This is diagnosed when tests are done for other disorders of the urinary tract or reproductive tract. ? Acute bacterial prostatitis. This type starts quickly and results from an acute bacterial infection in the prostate gland. It is usually associated with a bladder infection, high fever, and chills. This is the least common type of prostatitis. What are the causes? Bacterial prostatitis is caused by an infection from bacteria. Chronic nonbacterial prostatitis may be caused by: ? Factors related to the nervous system. This system includes thebrain, spinal cord, and nerves. ? An autoimmune response. This happens when the body's disease-fighting system attacks healthy tissue in the body by mistake. ? Psychological factors. These have to do with how the mind works. The causes of the other types of prostatitis are usually not known. What are the signs or symptoms? Symptoms of this condition depend on the type of prostatitis you have. Acute bacterial prostatitis Symptoms may include: ? Pain or burning during urination. ? Frequent and sudden urges to urinate. ? Trouble starting to urinate. ? Fever. ? Chills. ? Pain in your muscles or joints, lower back, or lower abdomen. Other types of prostatitis Symptoms may include: ? Sudden urges to urinate, or urinating often. ? Trouble starting to urinate. ? Weak urine stream. ? Dribbling after urination. ? Discharge coming from the penis. ? Pain in the testicles, the penis, or the tip of the penis. ? Pain in the area in front of the rectum and below the scrotum (perineum). ? Pain when ejaculating. How is this diagnosed? This condition may be diagnosed based on: ? A physical and medical exam. ? A digital rectal exam. For this, the health care provider may use a finger to feel the prostate. ? A urine test to check for bacteria. ? A semen sample or blood tests. ? Ultrasound. ? Urodynamic tests to check how your body handles urine. ? Cystoscopy to look inside your bladder or inside the part of your body that drains urine from the bladder (urethra). How is this treated? Treatment for this condition depends on the type of prostatitis. Treatment may involve: ? Medicines to relieve pain or inflammation, or to help relax your muscles. ? Physical therapy. ? Heat therapy. ? Biofeedback. These techniques help you control certain body functions. ? Relaxation exercises. ? Antibiotic medicine, if your condition is caused by bacteria. ? Sitz baths. These warm water baths help to relax your pelvic floor muscles, which helps to relieve pressure on the prostate. Follow these instructions at home: Medicines ? Take juwm-tmi-bwombfq and prescription medicines only as told by your health care provider. ? If you were prescribed an antibiotic medicine, take it as told by your health care provider. Do not stop using the antibiotic even if you start to feel better. Managing pain and swelling ? Take sitz baths as directed by your health care provider. For a sitz bath, sit in warm water that is deep enough to cover your hips and buttocks. ? If directed, apply heat to the affected area as often as told by your health care provider. Use the heat source that your health care provider recommends, such as a moist heat pack or a heating pad. ? Place a towel between your skin and the heat source. ? Leave the heat on for 20?30 minutes. ? Remove the heat if your skin turns bright red. This is especially important if you are unable to feel pain, heat, or cold. You may have a greater risk of getting burned. General instructions ? Do exercises as told by your health care provider, if you were prescribed physical therapy, biofeedback, or relaxation exercises. ? Keep all follow-up visits as told by your health care provider. This is important. Where to find more information ? National [place] of Diabetes and Digestive and Kidney Diseases: (more content not included)... [facility] Urology Office/Clinic Noteon 11-27-2022 Urology Office/Clinic Note Chief Complaint 1 month followu p HPI Staff 1 month follow up w/PVR. Previous DX: kidney stones, BPH w/urinary obstruction. *Tamsulosin 0.4mg qd per PCP. Pt went to PCP due to having UTI symptoms pt had urine culture a couple of days ago, he has gotten the results back this morning, no medication has been prescribed to him just yet. IPSS 6, SHANTA 24. PVR 13. Dysuria: yes a little bit of pain and burning Incomplete bladder emptying: denies Hematuria: denies visible blood, UA shows MODERATE Frequency: mild intermittent Urgency: denies Nocturia: 1x a night Stream: yes hesitancy, yes weak stream, denies start/stop stream Leaking: denies Post void dripping: denies Wearing pads/ Depends: denies Urge incontinence: denies Stress incontinence: denies Incontinence without Sensory Awareness: denies Abdominal pain: denies Flank pain: yes lower back pain due to working Sexual complaints: denies History of Present Illness Tests reviewed: reviewed UA, ucx. I have reviewed the previous health record information and history for this patient from Dr. Shirley. I have reviewed and verified the staff HPI to be accurate for this encounter. There have been no associated fever, chills, flank pain, or blood in the urine. Review of Systems PHQ Score Initial Depression Screen Score: 0 ROS - Provider Constitutional: denies weight loss, denies hot flashes. Eyes: denies eye problems. Gastrointestinal: denies nausea, denies vomiting. Cardiovascular: denies chest pain or angina. Integumentary: no dryness Musculoskeletal: denies musculoskeletal symptoms. ENMT: denies otolaryngeal symptoms. Respiratory: no shortness of breath. Heme/Lymph: denies easy bleeding tendency, denies easy bruising tendency. Psychiatric: no confusion, no anxiety. Genitourinary: See HPI. Physical Exam Vitals & Measurements HR: 98(Peripheral) BP: 101/63 HT: 72 in HT: 184 cm WT: 83.5 kg WT: 183.7 lb BMI: 24.66 General Appearance: alert, no distress, well nourished, well developed male. Genitourinary: Flank Pain: none. Bladder: nonpalpable. Assessment/Plan 66 yo male with history of gastric bypass revision complicated by GI bleed, severe anemia and FITO on dialysis initially presented with urinary retention s/p freeman placement 09/08/22. SHANTA 24 (25). 1. Prostatitis (N41.9: Inflammatory disease of prostate, unspecified) Pt presented to his PCP a couple days ago due to UTI sxs. UCx: 11/24/22 - E. coli 40-50k, gayle sensitive. No medication has been prescribed by PCP yet. PCP discussing antibiotics with nephrology given dialysis. UA today shows moderate blood and large leuks. Having some pain and burning, cloudy urine. Sxs returned a couple days after pt completed Keflex script. Was treated previously with abx that did not improve infection. No perineal pain or pressure. Discussed indications for prolonged treatment 4-6 wks with recurrent UTIs, likely secondary to prostatitis. This will prevent recurrent/chronic prostatitis. Risks and benefits discussed. Follow up 6-8 weeks, discuss cysto, or sooner if needed. Pt understands and agrees with plan. -Contacted Dr. Manuel Lloyd's office and discussed with him tx recommendations for 4 to 6 weeks of antibiotics based on what is appropriate with dialysis and cultures. 2. BPH with urinary obstruction (N40.1: Benign prostatic hyperplasia with lower urinary tract symptoms) Measured volume from CT scan - 48 gm prostate. IPSS 6 (3, prior to freeman). Taking Flomax 0.4 mg qd. Strong stream, Flomax helping with this. 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 - Re-discussed cysto to eval BEVERLY. We will proceed after prostatitis fully treated -Cont tamsulosin 3. History of urinary retention (Z87.898: Personal history of other specified conditions) Pt presented to [facility] 09/08/22 for urinary frequency. Pt was placed with a catheter at visit. Failed voiding trial during admission. Voiding trial IO 10/20/22. PVR today 13 cc. -Continue timed voiding and Flomax 4. Kidney stones (N20.0: Calculus of kidney) Pt presented to [facility] 09/08/22 due to urinary frequency and pain. CT AP wo con 09/08/22 [facility] [place] Bilateral nephrolithiasis w/ no obstruction and moderate bladder wall thickening. Personal review: Right at least 10 stones measuring up to 11 x 5 mm, Left about 4 stones up to 10 x 5 mm. Discussed how stones can contribute to recurrent UTIs. Discussed surgical intervention options including ESWL if visible on x-ray (less invasive, lower stone free rate) and ureteroscopy/laser litho with possible stent placement (more invasive, higher stone free rate), or PCNL (most invasive, one procedure). Risks, benefits, implications with renal failure of each discussed. States his renal fxn numbers have been improving. -Due for KUB and MARISOL 04/2023 (recall placed). Will wait for treatment until he is more recovered from his acute GI bleed and new onset FITO I spent 30 minutes toda (more content not included)... [facility] Comment on above: Result Comment: Elec tronically Signed By: Casper JENKINS, Barby Ramirez\.br\Date and Time Signed: 11/27/22 16:35 EDT\.br\Electronically Co-Signed By: Jessica Urrutia\.br\Date and Time Co-Signed: 11/27/22 08:39 EDT Urinalysis - DIPSTICKon 10-17 Appearance (U) cloudy [employer] Other Bilirubin Ql (U) small [employer] Other Color (U) yellow [employer] Other Glucose Ql (U) Negative [employer] Other Hemoglobin Ql (U) non hem to trace N [employer] Other Ketones Ql (U) Negative [place] Other Leukocyte esterase Test strip Ql (U) moderate [employer] Other Nitrite Ql (U) Negative [employer] Other pH (U) 5.0 [pH] [employer] Other Protein Ql (U) trace [employer] Other Specific gravity (U) [Rel density] 1.005 [employer] Other Urobilinogen (U) [Mass/Vol] off chart [employer] Other Urinalysis - DIPSTICK Nor [employer] Other CNPNon 10-21-2022 CNPN Normal [facility] Formson 10-21-2022 Forms [id number]: 127 Normal [facility] Patient Correspondenceon Patient Correspondence [id number]: 127 [facility] [place] 10-21-2022 Screens [id number]: 127 [facility] Screens [id number]: 127 [facility] Ambulatory Visit Summaryon 0 10-20-2022 Ambulatory Visit Summary MELE SKY :1955 Visit Date:10/20/2022 Ambulatory Visit Instructions Your Diagnosis Kidney stones Urinary frequency Your Care Team Attending Physician - Casper JENKINS, Barby Ramirez Primary Care Physician - IVAN LLOYD DO This Is Your Medications List Contact prescribing physician if questions or concerns calcium citrate (calcium (as calcium citrate) 200 mg oral tablet) cephalexin (cephalexin 250 mg Cap) furosemide (furosemide 40 mg Tab) pantoprazole (Pantoprazole [address] Tab) tamsulosin (tamsulosin 0.4 mg Cap) Procedures Performed Colonoscopy, Gastric bypass, History of hernia repair. Discharge Vitals Heart Rate (Peripheral) 72 Respiratory Rate 16 Blood Pressure 121/83 Height 184 cm Height 72 in Weight 83.5 kg Weight 183.7 lb BMI 24.66 What to do next Scheduled Follow-Up Appointments 2022 7:45 AM EDT With: Barby Shirley MD Where: [facility] Patient Educationon 10-21-19 23 Patient Education Urology Kidney Stones Kidney stones are rock-like masses that form inside of the kidneys. Kidneys are organs that make pee (urine). A kidney stone may move into other parts of the urinary tract, including: ? The tubes that connect the kidneys to the bladder (ureters). ? The bladder. ? The tube that carries urine out of the body (urethra). Kidney stones can cause very bad pain and can block the flow of pee. The stone usually leaves your body (passes) through your pee. You may need to have a doctor take out the stone. What are the causes? Kidney stones may be caused by: ? A condition in which certain glands make too much parathyroid hormone (primary hyperparathyroidism). ? A buildup of a type of crystals in the bladder made of a chemical called uric acid. The body makes uric acid when you eat certain foods. ? Narrowing (stricture) of one or both of the ureters. ? A kidney blockage that you were born with. ? Past surgery on the kidney or the ureters, such as gastric bypass surgery. What increases the risk? You are more likely to develop this condition if: ? You have had a kidney stone in the past. ? You have a family history of kidney stones. ? You do not drink enough water. ? You eat a diet that is high in protein, salt (sodium), or sugar. ? You are overweight or very overweight (obese). What are the signs or symptoms? Symptoms of a kidney stone may include: ? Pain in the side of the belly, right below the ribs (flank pain). Pain usually spreads (radiates) to the groin. ? Needing to pee often or right away (urgently). ? Pain when going pee (urinating). ? Blood in your pee (hematuria). ? Feeling like you may vomit (nauseous). ? Vomiting. ? Fever and chills. How is this treated? Treatment depends on the size, location, and makeup of the kidney stones. The stones will often pass out of the body through peeing. You may need to: ? Drink more fluid to help pass the stone. In some cases, you may be given fluids through an IV tube put into one of your veins at the hospital. ? Take medicine for pain. ? Make changes in your diet to help keep kidney stones from coming back. Sometimes, medical procedures are needed to remove a kidney stone. This may involve: ? A procedure to break up kidney stones using a beam of light (laser) or shock waves. ? Surgery to remove the kidney stones. Follow these instructions at home: Medicines ? Take eqmi-pcm-rnuqbem and prescription medicines only as told by your doctor. ? Ask your doctor if the medicine prescribed to you requires you to avoid driving or using heavy machinery. Eating and drinking ? Drink enough fluid to keep your pee pale yellow. You may be told to drink at least 8?10 glasses of water each day. This will help you pass the stone. ? If told by your doctor, change your diet. This may include: ? Limiting how much salt you eat. ? Eating more fruits and vegetables. ? Limiting how much meat, poultry, fish, and eggs you eat. ? Follow instructions from your doctor about eating or drinking restrictions. General instructions ? Collect pee samples as told by your doctor. You may need to collect a pee sample: ? 24 hours after a stone comes out. ? 8?12 weeks after a stone comes out, and every 6?12 months after that. ? Strain your pee every time you pee (urinate), for as long as told. Use the strainer that your doctor recommends. ? Do not throw out the stone. Keep it so that it can be tested by your doctor. ? Keep all follow-up visits as told by your doctor. This is important. You may need follow-up tests. How is this prevented? To prevent another kidney stone: ? Drink enough fluid to keep your pee pale yellow. This is the best way to prevent kidney stones. ? Eat healthy foods. ? Avoid certain foods as told by your doctor. You may be told to eat less protein. ? Stay at a healthy weight. Where to find more information ? National Kidney Foundation (NKF): www.kidney.org ? [employer] (UCF): www.urologyhealth.org Contact a doctor if: ? You have pain that gets worse or does not get better with medicine. Get help right away if: ? You have a fever or chills. ? You get very bad pain. ? You get new pain in your belly (abdomen). ? You pass out (faint). ? You cannot pee. Summary ? Kidney stones are rock-like masses that form inside of the kidneys. ? Kidney stones can cause very bad pain and can block the flow of pee. ? The stones will often pass out of the body through peeing. ? Drink enough fluid to keep your pee pale yellow. This information is not intended to replace advice given to you by your health care provider. Make sure you discuss any questions you have with your health care provider. Document Revised: 01/06/2022 Document Reviewed: 01/06/2022 [employer] Patient Education ? 2022 [employer] [facility] Urology Office/Clinic Noteon 10-20-2022 Urology Office/Clinic Note Chief Complaint New pt. HPI Staff This is a 66 year old male New Pt. seen in [place] [facility] for urinary frequency and pain. Bladder scan was done while in the ER showing 477mL. Freeman was placed. CT done while in ER. Pt. states no blood or clots in the catheter bag. Pt. is on dialysis. PSA 2.24 done 03/14/22. Pt. states he is taking Keflex. Pt. taking Flomax. History of Present Illness Tests reviewed: reviewed UA, external records including notes, labs, CT scan, cultures I have reviewed the previous health record information and history for this patient from external providers. I have reviewed and verified the staff HPI to be accurate for this encounter. Review of Systems PHQ Score Initial Depression Screen Score: 0 ROS - Provider Constitutional: denies weight loss, denies hot flashes. Eyes: denies eye problems. Gastrointestinal: denies nausea, denies vomiting. Cardiovascular: denies chest pain or angina. Integumentary: no dryness Musculoskeletal: denies musculoskeletal symptoms. ENMT: denies otolaryngeal symptoms. Respiratory: no shortness of breath. Heme/Lymph: denies easy bleeding tendency, denies easy bruising tendency. Psychiatric: no confusion, no anxiety. Genitourinary: see HPI Physical Exam Vitals & Measurements HR: 72(Peripheral) RR: 16 BP: 121/83 HT: 72 in HT: 184 cm WT: 83.5 kg WT: 183.7 lb BMI: 24.66 General Appearance: alert, no distress, well nourished, well developed male. Genitourinary: Freeman to gravity with CYU Flank Pain: none. Bladder: nonpalpable. Assessment/Plan 66 yo male with history of gastric bypass revision complicated by GI bleed, severe anemia and FITO on dialysis here for new pt evaluation of urinary retention s/p freeman placement 09/08/22. SHANTA - 25 1. Kidney stones (N20.0: Calculus of kidney) Pt presented to [facility] 09/08/2022 for urinary frequency and pain. CT AP wo contrast 09/08/2022 [facility] [place] bilateral nephrolithiasis w/ no obstruction and moderate bladder wall thickening. Personal review: Right at least 10 stones measuring up to 11x5 mm, Left about 4 stones up to 10x5 mm . Pt denies any prior stone treatment of known sx stones. Pt on dialysis due to injury, takes Heparin. We discussed management options moving forward including general dietary modifications, metabolic stone work-up including serum labs and 24-hour urine analysis, continued surveillance with imaging in 6 to 12 months or intervention management. -The patient like to proceed with general dietary modifications and continued surveillance as he recovers from FITO and recent hospitalization -Will repeat MARISOL/KUB in 6 mths 2. BPH with urinary obstruction (N40.1: Benign prostatic hyperplasia with lower urinary tract symptoms) Pt presented to [facility] 09/08/2022 for urinary frequency. Pt was placed with a catheter at visit. Failed voiding trial during admission. Measured volume from CT scan-48gm prostate IPSS - 3 prior to freeman Denies hx of UTI, LUTS, urologic surgery or urinary retention Daily UOP volumes from 10/08/2022 - 10/19/2022, 1500- 2875 mL while on dialysis Pt currently taking Tamsulosin and cephalexin (per PCP) Pt denies any complications or SEs. -Voiding trial today. The Freeman catheter has been removed today without complications. The patient will call the office or present to the Emergency Department if he is unable to void. -Encouraged pt to time voids, every 2-3hrs -Patient is tolerating current medication for BPH well without side effects, he would like to continue the medication. Will send refill of Tamsulosin. -Will plan a follow-up visit with a bladder scan for PVR in 1 month I spent 45 minutes today with the patient: reviewing tests in preparation to see and discuss them with the patient, obtaining and reviewing external separately obtained history, documenting clinical information in the electronic health records, and care coordination. Over half the time was spent performing a medical exam and evaluation, and counseling and educating the patient, and ordering medications and procedures in caring for the patient. Follow-up With When Contact Information Casper JENKINS, Barby Ramirez, URL, URO In 1 month [address] [place] [address]- [phone] Additional Instructions: PVR Patient Education Kidney Stones, [id number] Jennie Casas , personally scribed for Dr. Shirley on 10/20/2022 15:21:24. . Documentation recorded by the scribe, Oly Parks, accurately reflects the services(s) I performed and decisions made by me. Authenticated by Dr. Shirley on 10/20/2022 21:16:21. Problem List/Past Medical History Ongoing FITO (acute kidney injury) Anemia GI bleed Hemodialysis access, fistula mature History of necrotic bowel Kidney stones Urinary frequency UTI (urinary tract infection) Historical No qualifying data Procedure/Surgical History Colonoscopy, Gastric bypass, History of hernia repair. Medications calcium (as jeremiah (more content not included)... Normal [facility] Comment on above: Result Comment: Elec tronically Signed By: Casper JENKINS, Barby Ramirez\.br\Date and Time Signed: 10/20/22 21:17 EDT\.br\Electronically Co-Signed By: Jennie Carpenter\.br\Date and Time Co-Signed: 10/20/22 15:21 EDT US map hemodial access BILon 10-14-2022 US map hemodial access [facility] Main [address] [place] [address] Ultrasound Report Signed Patient: Mele Sky MR#: [id number] 1230 : 1955 Acct:[id number] Age/Sex: 66 / M ADM Date: 09/23/22 Loc: [facility] Room: Type: [facility] Attending Dr: Rodrigo Miller MD Ordering Provider: Rodrigo Miller MD Date of Service: 09/23/22 US/US map hemodial access [facility]: N18.6, Z01.818 Copies to: Rodrigo Miller MD Bilateral upper extremity vein mapping examination Indication for study: Renal failure with need for dialysis access PROCEDURE: B-mode imaging is used to interrogate the venous anatomy of both upper extremities. The right forearm basilic and cephalic veins are less than 2 mm. The right upper arm cephalic vein is not visualized. The right upper arm basilic vein is less than 3 mm the most of its course and not well visualized in the axilla. The subclavian and axillary veins are patent with an indwelling right-sided dialysis catheter. The brachial artery is 6 mm the radial artery is just under 3 mm. In the patient's left upper extremity there is similar poor quality anatomy for creation of autologous access. The basilic and cephalic veins are probably not usable on either side and thrombus is noted in the distal portion of the vein. The brachial artery is 5 mm and the radial artery is 3 mm. US/US map hemodial access [facility] IMPRESSION: Poor quality veins are noted in both upper extremities for creation of autologous access. There is a patent axillary vein which could be used for creation of a prosthetic graft. Impression dictated by: Rodrigo Miller M.D.10/14/2022 3:32 PM Dictation Location: [facility] Tech: Renetta Hollins Transcribed By: GIA 10/14/221531 Dictated By: Rodrigo Miller MD 10/14/221530 Signed By: 10/14/221531 [facility] CNPNon 09-12-2022 CNPN Normal [facility] Basic Metabolic Panelon 08-17 Anion gap [Moles/Vol] 13.1 mmol/L Normal 6.0-15.0 [facility] Comment on above: Performed By: #### C BC, BMP ####[facility] [id number] [place] [address] [facility] Calcium [Mass/Vol] 7.0 mg/dL Low 8.6-10.3 [facility] Comment on above: Performed By: #### C BC, BMP ####[facility] [id number] [place] [address] [facility] Chloride [Moles/Vol] 101 mmol/L Normal 98-107 [facility] Comment on above: Performed By: #### C BC, BMP ####[facility] [address] [place] [address] [facility] CO2 [Moles/Vol] 25.1 mmol/L Normal 21.0-31.0 [facility] Comment on above: Performed By: #### C BC, BMP ####[facility] [address] [place] [address] [place] Creatinine [Mass/Vol] 5.96 mg/dL Significan t change up 0.70-1.30 [facility] Comment on above: Performed By: #### C BC, BMP ####[facility] [id number] [place] [address] [place] Creatinine Clr Calc Pharmacy 13.74 [facility] Comment on above: Result Comment: PERF ORMED BY: [facility] [address] [place] [id number] PATHOLOGIST SCRUBBING MACHINE OPERATOR RADHA PETERSON M.D. Performed By: #### C JEN, BMP ####[place] [address] [place] [id number] [facility] GFR/1.73 sq M.predicted MDRD (S/P/Bld) [Vol rate/Area] 9.868 mL/min/{1.73_m2} Normal [facility] Comment on above: Performed By: #### C EJN, BMP ####[place] [address] [place] [id number] [facility] Glucose [Mass/Vol] 86 mg/dL Normal 70-100 [facility] Comment on above: Result Comment: [facility] Glucose Reference Range is dependent on time and content of last meal. Glucose of more than 200 mg/dL in a nonstressed, ambulatory subject supports the diagnosis of Diabetes Mellitus. ADA recommended reference range Performed By: #### C JEN, BMP ####[place] [address] [place] [id number] [facility] Potassium [Moles/Vol] 3.2 mmol/L Low 3.5-5.1 [facility] Comment on above: Performed By: #### C JEN, BMP ####[place] [address] [place] [id number] [facility] Sodium [Moles/Vol] 136 mmol/L Normal 136-145 [facility] Comment on above: Performed By: #### C JEN, BMP ####[place] [address] [place] [address] [facility] Urea nitrogen [Mass/Vol] 61 mg/dL High 7-25 [facility] Comment on above: Performed By: #### C JEN, BMP ####[place] [id number] [facility] Basophils Auto (Bld) [#/Vol] Ordered By: Brandi Rodriguez on 09-11-2022 Basophils (Bld) [#/Vol] 0.0 10*3/uL 0.0-0.2 [facility] Basophils/100 WBC Auto (Bld) Ordered By: Brandi Rodriguez on 09-11-2022 Basophils/100 WBC (Bld) 0.4 % . [facility] Calcium [Mass/volume] in Ser um or PlasmaOrdered By: Brandi Rodriguez on 09-11-2022 Calcium [Mass/Vol] 7.0 mg/dL 8.6-10.3 [facility] Carbon dioxide, total [Moles /volume] in Serum or PlasmaOrdered By: Brandi Rodriguez on 09-11-2022 CO2 [Moles/Vol] 25.1 mmol/L 21.0-31.0 [facility] Chloride [Moles/volume] in S franky or PlasmaOrdered By: Brandi Rodriguez on 09-11-2022 Chloride [Moles/Vol] 101 mmol/L 98-107 [facility] Complete Blood Count Auto Di ffon 09-11-2022 Basophils (Bld) [#/Vol] 0.0 10*3/uL Normal 0.0-0.2 [facility] Comment on above: Result Comment: PERF ORMED BY: [facility] [address] [place] [address] PATHOLOGIST SCRUBBING MACHINE OPERATOR RADHA PETERSON M.D. Performed By: #### C JEN, BMP ####[address] Basophils/100 WBC (Bld) 0.4 % Normal . [facility] Comment on above: Performed By: #### C JEN, BMP ####[address] Eosinophils (Bld) [#/Vol] 0.9 10*3/uL High 0.0-0.45 [facility] Comment on above: Performed By: #### C JEN, BMP ####[address] Eosinophils/100 WBC (Bld) 13.4 % Normal . [facility] Comment on above: Performed By: #### C JEN, BMP ####[address] Erythrocyte distribution width (RBC) [Ratio] 17.7 % High 12.0-14.8 [facility] Comment on above: Performed By: #### C JEN, BMP ####[address] Hematocrit (Bld) [Volume fraction] 23.8 % Low 38.8-50.0 [facility] Comment on above: Performed By: #### C JEN, BMP ####[address] Hemoglobin (Bld) [Mass/Vol] 8.2 g/dL Low 13.0-17.0 [facility] Comment on above: Performed By: #### C JEN, BMP ####[address] Lymphocytes (Bld) [#/Vol] 1.6 10*3/uL Normal 1.00-4.8 [facility] Comment on above: Performed By: #### C JEN, BMP ####[address] Lymphocytes/100 WBC (Bld) 23.7 % Normal . [facility] Comment on above: Performed By: #### C JEN, BMP ####[address] MCH (RBC) [Entitic mass] 29.2 pg Normal 27.5-35.2 [facility] Comment on above: Performed By: #### C JEN, BMP ####[address] MCV (RBC) [Entitic vol] 84.5 fL Normal 83.5-101 [facility] Comment on above: Performed By: #### C JEN, BMP ####[address] Mean Corpuscular HGB Conc 34.5 g/dL Normal 32.5-35.6 [facility] Comment on above: Performed By: #### C JEN, BMP ####[address] Monocytes (Bld) [#/Vol] 0.8 10*3/uL Normal 0.0-0.8 [facility] Comment on above: Performed By: #### C JEN, BMP ####[address] Monocytes/100 WBC (Bld) 11.7 % Normal . [facility] Comment on above: Performed By: #### C JEN, BMP ####[address] Neutrophils (Bld) [#/Vol] 3.3 10*3/uL Normal 1.8-7.7 [facility] Comment on above: Performed By: #### C JEN, BMP ####[address] Neutrophils/100 WBC (Bld) 50.8 % Normal . [facility] Comment on above: Performed By: #### C JEN, BMP ####[address] NRBC% 0.2 /100{WBC} Normal 0-0.5 [facility] Comment on above: Performed By: #### C JEN, BMP ####[address] Platelet mean volume (Bld) [Entitic vol] 7.4 fL Normal 6.6-10.1 [facility] Comment on above: Performed By: #### C JEN, BMP ####[address] Platelets (Bld) [#/Vol] 151 10*3/uL Normal 150-450 [facility] Comment on above: Performed By: #### C JEN, BMP ####[place] [id number] [facility] RBC (Bld) [#/Vol] 2.82 10*6/uL Low 3.90-5.60 [facility] Comment on above: Performed By: #### C JEN, BMP ####[address] [place] [address] [facility] WBC (Bld) [#/Vol] 6.5 10*3/uL Normal 4.1-10.5 [facility] Comment on above: Performed By: #### C BC, BMP ####[facility] [address] [place] [address] [facility] Creatinine [Mass/volume] in Serum or PlasmaOrdered By: Brandi Rodriguez on 09-11-2022 Creatinine [Mass/Vol] 5.96 mg/dL 0.70-1.30 [facility] Comment on above: Delta: 5.41 on 09/10 Eosinophils Auto (Bld) [#/Vo l]Ordered By: Brandi Rodriguez on 09-11-2022 Eosinophils (Bld) [#/Vol] 0.9 10*3/uL 0.0-0.45 [facility] Eosinophils/100 WBC Auto (Bl d)Ordered By: Brandi Rodriguez on 09-11-2022 Eosinophils/100 WBC (Bld) 13.4 % . [facility] Erythrocyte distribution wid th Auto (RBC) [Ratio]Ordered By: Brandi Rodriguez on 09-11-2022 Erythrocyte distribution width (RBC) [Ratio] 17.7 % 12.0-14.8 [facility] Glucose [Mass/volume] in Ser um or PlasmaOrdered By: Brandi Rodriguez on 09-11-2022 Glucose [Mass/Vol] 86 mg/dL 70-100 [facility] Comment on above: ADA recommended refe rence rangeRandom Glucose Reference Range is dependent on time and content of last meal. Glucose of more than 200 mg/dL in a nonstressed, ambulatory subject supports the diagnosis of Diabetes Mellitus. Hematocrit Auto (Bld) [Volum e fraction]Ordered By: Brandi Rodriguez on 09-11-2022 Hematocrit (Bld) [Volume fraction] 23.8 % 38.8-50.0 [facility] Hemoglobin [Mass/volume] in BloodOrdered By: Brandi Rodriguez on 09-11-2022 Hemoglobin (Bld) [Mass/Vol] 8.2 g/dL 13.0-17.0 [facility] Leukocytes [#/volume] correc db for nucleated erythrocytes in Blood by Automated counOrdered By: Brandi Rodriguez on 09-11-2022 WBC corrected for nucl RBC Auto (Bld) [#/Vol] 6.5 10*3/uL 4.1-10.5 [facility] Lymphocytes Auto (Bld) [#/Vo l]Ordered By: Brandi Rodriguez on 09-11-2022 Lymphocytes (Bld) [#/Vol] 1.6 10*3/uL 1.00-4.8 [facility] Lymphocytes/100 WBC Auto (Bl d)Ordered By: Brandi Rodriguez on 09-11-2022 Lymphocytes/100 WBC (Bld) 23.7 % . [facility] MCH Auto (RBC) [Entitic mass ]Ordered By: Brandi Rodriguez on 09-11-2022 MCH (RBC) [Entitic mass] 29.2 pg 27.5-35.2 [facility] MCHC Auto (RBC) [Mass/Vol]Or dered By: Brandi Rodriguez on 09-11-2022 MCHC (RBC) [Mass/Vol] 34.5 g/dL 32.5-35.6 [facility] MCV Auto (RBC) [Entitic vol] Ordered By: Brandi Rodriguez on 09-11-2022 MCV (RBC) [Entitic vol] 84.5 fL 83.5-101 [facility] Monocytes Auto (Bld) [#/Vol] Ordered By: Brandi Rodriguez on 09-11-2022 Monocytes (Bld) [#/Vol] 0.8 10*3/uL 0.0-0.8 [facility] Monocytes/100 WBC Auto (Bld) Ordered By: Brandi Rodriguez on 09-11-2022 Monocytes/100 WBC (Bld) 11.7 % . [facility] Neutrophils Auto (Bld) [#/Vo l]Ordered By: Brandi Rodriguez on 09-11-2022 Neutrophils (Bld) [#/Vol] 3.3 10*3/uL 1.8-7.7 [facility] Neutrophils/100 WBC Auto (Bl d)Ordered By: Brandi Rodriguez on 09-11-2022 Neutrophils/100 WBC (Bld) 50.8 % . [facility] No Panel InformationOrdered By: Brandi Rodriguez on 09-11-2022 Estimated GFR (CKD-EPI) 9.868 mL/Min [facility] Creatinine Clearance (Chem 13.74 [facility] Nucleated erythrocytes [Pres ence] in Blood by Automated countOrdered By: Brandi Rodriguez on 09-11-2022 Nucleated RBC Auto Ql (Bld) 0.2 /100{WBC} 0-0.5 [facility] Platelet mean volume Auto (B ld) [Entitic vol]Ordered By: rBandi Rodriguez on 09-11-2022 Platelet mean volume (Bld) [Entitic vol] 7.4 fL 6.6-10.1 [facility] Platelets Auto (Bld) [#/Vol] Ordered By: Brandi Rodriguez on 09-11-2022 Platelets (Bld) [#/Vol] 151 10*3/uL 150-450 [facility] Potassium [Moles/volume] in Serum or PlasmaOrdered By: Brandi Rodriguez on 09-11-2022 Potassium [Moles/Vol] 3.2 mmol/L 3.5-5.1 [facility] RBC Auto (Bld) [#/Vol]Ordere d By: Brandi Rodriguez on 09-11-2022 RBC (Bld) [#/Vol] 2.82 10*6/uL 3.90-5.60 [facility] Serum or plasma anion gap de terminationOrdered By: Brandi Rodriguez on 09-11-2022 Anion gap [Moles/Vol] 13.1 mmol/L 6.0-15.0 [facility] Sodium [Moles/volume] in Ser um or PlasmaOrdered By: Brandi Rodriguez on 09-11-2022 Sodium [Moles/Vol] 136 mmol/L 136-145 [facility] US map hemodial access BILon 09-11-2022 US map hemodial access [facility] Main [address] [address] Ultrasound Report Signed Patient: Mele Sky MR#: [id number] 1230 : 1955 Acct:[id number] Age/Sex: 66 / M ADM Date: 09/08/22 Loc: Room: [address] [place] [address] Type: ADM IN Attending Dr: Brandi Rodriguez MD Ordering Provider: Dilia Ram APRN Date of Service: 09/10/22 US/US map hemodial access SHER[facility]: AV access creation Copies to: CHYNA Angel MD Bilateral upper extremity vein mapping INDICATIONS: Need for dialysis access. FINDINGS: Right upper extremity: The cephalic vein in the right upper extremity is not visualized. The forearm cephalic vein is inadequate in size. Patient does have a port placed in the right subclavian vein. The basilic vein was not visualized proximally. The basilic vein in the forearm was small. Left upper extremity: Thrombus was identified in multiple locations of the cephalic and basilic veins. The basilic vein in the forearm was small. The pelvis the basilic vein in the forearm was also small. Basilic vein in the arm was not visualized proximally. US/US map hemodial access [facility] IMPRESSION: As above Impression dictated by: Sergio Lassiter MD09/11/2022 2:09 PM Dictation Location: [place] [address] Tech: Sarita Oliva Transcribed By: [facility] 09/11/22 140 Dictated By: Sergio Lassiter MD 09/11/22 140 Signed By: 09/11/22 140 Normal [facility] Urea nitrogen [Mass/volume] in Serum or PlasmaOrdered By: Brandi Rodriguez on 09-11-2022 Urea nitrogen [Mass/Vol] 61 mg/dL 12-09 [facility] WBC Auto (Bld) [#/Vol]Ordere d By: Brandi Rodriguez on 09-11-2022 WBC (Bld) [#/Vol] 6.5 10*3/uL 4.1-10.5 [facility] Basic Metabolic Panelon 08-17 Anion gap [Moles/Vol] 11.8 mmol/L Normal 6.0-15.0 [facility] Comment on above: Order Comment: ultra sound in room AB 1557 Performed By: #### B MP ####[place] [address] [place] [address] [facility] Calcium [Mass/Vol] 7.2 mg/dL Low 8.6-10.3 [facility] Comment on above: Order Comment: ultra sound in room AB 1557 Performed By: #### B MP ####[address] [address] [facility] Chloride [Moles/Vol] 103 mmol/L Normal 98-107 [facility] Comment on above: Order Comment: ultra sound in room AB 1557 Performed By: #### B MP ####[place] [id number] [facility] CO2 [Moles/Vol] 28.7 mmol/L Normal 21.0-31.0 [facility] Comment on above: Order Comment: ultra sound in room AB 1557 Performed By: #### B MP ####[place] [id number] [facility] Creatinine [Mass/Vol] 5.41 mg/dL Significan t change up 0.70-1.30 [facility] Comment on above: Order Comment: ultra sound in room AB 1557 Performed By: #### B MP ####[place] [id number] [facility] Creatinine Clr Calc Pharmacy 15.14 Normal [facility] Comment on above: Order Comment: ultra sound in room AB 1557 Result Comment: PERF ORMED BY: [facility] [address] [place] [id number] PATHOLOGIST SCRUBBING MACHINE OPERATOR RADHA PETERSON M.D. Performed By: #### B MP ####[place] [id number] [place] GFR/1.73 sq M.predicted MDRD (S/P/Bld) [Vol rate/Area] 11.083 mL/min/{1.73_m2} Normal [facility] Comment on above: Order Comment: ultra sound in room AB 1557 Performed By: #### B MP ####[facility] [place] [address] [facility] Glucose [Mass/Vol] 119 mg/dL High 70-100 [facility] Comment on above: Order Comment: ultra sound in room AB 1557 Result Comment: [place] Glucose Reference Range is dependent on time and content of last meal. Glucose of more than 200 mg/dL in a nonstressed, ambulatory subject supports the diagnosis of Diabetes Mellitus. ADA recommended reference range Performed By: #### B MP ####[facility] [place] [address] [facility] Potassium [Moles/Vol] 3.5 mmol/L Normal 3.5-5.1 [facility] Comment on above: Order Comment: ultra sound in room AB 1557 Performed By: #### B MP ####[place] [address] [place] [address] [facility] Sodium [Moles/Vol] 140 mmol/L Normal 136-145 [facility] Comment on above: Order Comment: ultra sound in room AB 1557 Performed By: #### B MP ####[address] [address] [facility] Urea nitrogen [Mass/Vol] 64 mg/dL Significant change up 12-09 [facility] Comment on above: Order Comment: ultra sound in room AB 1557 Performed By: #### B MP ####[place] [address] [place] [address] [facility] Anion gap [Moles/Vol] 15.5 mmol/L High 6.0-15.0 [facility] Comment on above: Performed By: #### C BC, BMP ####[place] [address] [place] [address] [place] Calcium [Mass/Vol] 7.2 mg/dL Low 8.6-10.3 [facility] Comment on above: Performed By: #### C BC, BMP ####[facility] [place] [address] [place] Chloride [Moles/Vol] 106 mmol/L Normal 98-107 [facility] Comment on above: Performed By: #### C BC, BMP ####[facility] [place] [address] [facility] CO2 [Moles/Vol] 21.4 mmol/L Normal 21.0-31.0 [facility] Comment on above: Performed By: #### C BC, BMP ####[facility] [facility] [place] [address] [facility] Creatinine [Mass/Vol] 9.25 mg/dL High 0.70-1.30 [facility] Comment on above: Performed By: #### C BC, BMP ####[place] [address] [place] [address] [facility] Creatinine Clr Calc Pharmacy 8.86 [facility] Comment on above: Result Comment: PERF ORMED BY: [facility] [address] [place] [address] PATHOLOGIST SCRUBBING MACHINE OPERATOR RADHA PETERSON M.D. Performed By: #### C BC, BMP ####[place] [id number] [place] [id number] [facility] GFR/1.73 sq M.predicted MDRD (S/P/Bld) [Vol rate/Area] 5.823 mL/min/{1.73_m2} [facility] Comment on above: Performed By: #### C BC, BMP ####[place] [id number] [place] [id number] [facility] Glucose [Mass/Vol] 101 mg/dL High 70-100 [facility] Comment on above: Result Comment: [place] Glucose Reference Range is dependent on time and content of last meal. Glucose of more than 200 mg/dL in a nonstressed, ambulatory subject supports the diagnosis of Diabetes Mellitus. ADA recommended reference range Performed By: #### C BC, BMP ####[place] [id number] [place] [id number] [facility] Potassium [Moles/Vol] 2.9 mmol/L Off scale low 3.5-5.1 [facility] Comment on above: Result Comment: Crit ical Result Called to and read back by: ANGEL AMIN at: 09/10/2022 07:18:56 by:[id number] Performed By: #### C BC, BMP ####[place] [id number] [facility] Sodium [Moles/Vol] 140 mmol/L Normal 136-145 [facility] Comment on above: Performed By: #### C BC, BMP ####[place] [id number] [facility] Urea nitrogen [Mass/Vol] 114 mg/dL High 7- [facility] Comment on above: Performed By: #### C BC, BMP ####[address] [address] [facility] Complete Blood Count Auto Di ffon 09-10-2022 Basophils (Bld) [#/Vol] 0.0 10*3/uL Normal 0.0-0.2 [facility] Comment on above: Result Comment: PERF ORMED BY: [facility] [address] [place] [address] PATHOLOGIST SCRUBBING MACHINE OPERATOR RADHA PETERSON M.D. Performed By: #### C BC, BMP ####[place] [id number] [facility] Basophils/100 WBC (Bld) 0.6 % Normal . [facility] Comment on above: Performed By: #### C BC, BMP ####[place] [id number] [facility] Eosinophils (Bld) [#/Vol] 0.5 10*3/uL High 0.0-0.45 [facility] Comment on above: Performed By: #### C BC, BMP ####[place] [id number] [facility] Eosinophils/100 WBC (Bld) 9.1 % Normal . [facility] Comment on above: Performed By: #### C BC, BMP ####[place] [id number] [facility] Erythrocyte distribution width (RBC) [Ratio] 17.2 % High 12.0-14.8 [facility] Comment on above: Performed By: #### C BC, BMP ####[place] [id number] [facility] Hematocrit (Bld) [Volume fraction] 22.1 % Low 38.8-50.0 [facility] Comment on above: Performed By: #### C BC, BMP ####[place] [id number] [facility] Hemoglobin (Bld) [Mass/Vol] 7.7 g/dL Low 13.0-17.0 [facility] Comment on above: Performed By: #### C JEN, BMP ####[place] [id number] [facility] Lymphocytes (Bld) [#/Vol] 1.0 10*3/uL Normal 1.00-4.8 [facility] Comment on above: Performed By: #### C JEN, BMP ####[place] [id number] [facility] Lymphocytes/100 WBC (Bld) 19.9 % Normal . [facility] Comment on above: Performed By: #### C JEN, BMP ####[place] [id number] [facility] MCH (RBC) [Entitic mass] 29.5 pg Normal 27.5-35.2 [facility] Comment on above: Performed By: #### C JEN, BMP ####[place] [id number] [facility] MCV (RBC) [Entitic vol] 84.5 fL Normal 83.5-101 [facility] Comment on above: Performed By: #### C BC, BMP ####[place] [id number] [facility] Mean Corpuscular HGB Conc 34.9 g/dL Normal 32.5-35.6 [facility] Comment on above: Performed By: #### C BC, BMP ####[place] [id number] [facility] Monocytes (Bld) [#/Vol] 0.6 10*3/uL Normal 0.0-0.8 [facility] Comment on above: Performed By: #### C BC, BMP ####[facility] [address] [place] [address] [facility] Monocytes/100 WBC (Bld) 12.0 % Normal . [facility] Comment on above: Performed By: #### C JEN, BMP ####[facility] [address] [place] [address] [facility] Neutrophils (Bld) [#/Vol] 3.0 10*3/uL Normal 1.8-7.7 [facility] Comment on above: Performed By: #### C JEN, BMP ####[facility] [id number] [place] [address] [facility] Neutrophils/100 WBC (Bld) 58.4 % Normal . [facility] Comment on above: Performed By: #### C JEN, BMP ####[address] [place] [address] [facility] NRBC% 0.2 /100{WBC} Normal 0-0.5 [facility] Comment on above: Performed By: #### C JEN, BMP ####[facility] [address] [place] [address] [facility] Platelet mean volume (Bld) [Entitic vol] 7.5 fL Normal 6.6-10.1 [facility] Comment on above: Performed By: #### C JEN, BMP ####[facility] [place] [address] [facility] Platelets (Bld) [#/Vol] 157 10*3/uL Normal 150-450 [facility] Comment on above: Performed By: #### C JEN, BMP ####[facility] [address] [place] [address] [facility] RBC (Bld) [#/Vol] 2.61 10*6/uL Low 3.90-5.60 [facility] Comment on above: Performed By: #### C JEN, BMP ####[facility] [address] [place] [address] [facility] WBC (Bld) [#/Vol] 5.2 10*3/uL Normal 4.1-10.5 [facility] Comment on above: Performed By: #### C BC, BMP ####[facility] [address] [place] [address] [facility] XR chest 1V portableon 09-10 XR chest 1V portable [facility] [address] [place] [address] XRay Report Signed Patient: Mele Sky MR#: [id number] : 1955 Acct:[id number] Age/Sex: 66 / M ADM Date: 09/08/22 Loc: Room: [address] [place] [address] Type: ADM IN Attending Dr: Brandi Rodriguez MD Copies to: MD Brandi Mcghee MD Ordering Provider: Rodrigo Miller MD Date of Service: 09/10/22 XR/XR chest 1V portable: POST HD CATH PORTABLE AP ERECT CHEST 1036 hours CLINICAL HISTORY: Follow-up right-sided dialysis catheter placement. COMPARISON: 07/27/2022 There is a new right IJ dialysis catheter with tip overlying the distal superior vena cava. The heart is within normal limits. There is no vascular congestion. The lungs, as visualized, are clear. There is no effusion or pneumothorax. The osseous structures are intact. End plate spurring is noted. XR/XR chest 1V portable IMPRESSION: DIALYSIS CATHETER PLACEMENT, DESCRIBED. NO POSTPROCEDURE PNEUMOTHORAX. Impression dictated by: Yusra Medley M.D.09/10/2022 10:55 AM Dictation Location: [place] [address] Transcribed By: [facility] 09/10/22 1055 Dictated By: Yusra Medley MD 09/10/22 1054 Signed By: 09/10/22 1055 Normal [facility] Basic Metabolic Panelon 08-17 Anion gap [Moles/Vol] 16.2 mmol/L High 6.0-15.0 [facility] Comment on above: Performed By: #### B MP, CBC ####[facility] [address] [place] [address] [facility] Calcium [Mass/Vol] 7.4 mg/dL Low 8.6-10.3 [facility] Comment on above: Performed By: #### B MP, CBC ####[address] [place] [address] [place] Chloride [Moles/Vol] 112 mmol/L High 98-107 [facility] Comment on above: Performed By: #### B MP, CBC ####[address] [place] [address] [place] CO2 [Moles/Vol] 14.0 mmol/L Low 21.0-31.0 [facility] Comment on above: Performed By: #### B MP, CBC ####[address] [place] [address] [facility] Creatinine [Mass/Vol] 9.37 mg/dL High 0.70-1.30 [facility] Comment on above: Performed By: #### B MP, CBC ####[address] [place] [address] [facility] Creatinine Clr Calc Pharmacy 8.74 [facility] Comment on above: Result Comment: PERF ORMED BY: [facility] [address] [place] [address] PATHOLOGIST SCRUBBING MACHINE OPERATOR RADHA PETERSON M.D. Performed By: #### B MP, CBC ####[address] [place] [address] [place] GFR/1.73 sq M.predicted MDRD (S/P/Bld) [Vol rate/Area] 5.734 mL/min/{1.73_m2} [facility] Comment on above: Performed By: #### B MP, CBC ####[address] [place] [address] [facility] Glucose [Mass/Vol] 99 mg/dL Normal 70-100 [facility] Comment on above: Result Comment: [place] om Glucose Reference Range is dependent on time and content of last meal. Glucose of more than 200 mg/dL in a nonstressed, ambulatory subject supports the diagnosis of Diabetes Mellitus. ADA recommended reference range Performed By: #### B MP, CBC ####[facility] [address] [place] [id number] [facility] Potassium [Moles/Vol] 3.2 mmol/L Low 3.5-5.1 [facility] Comment on above: Performed By: #### B MP, CBC ####[place] [address] [place] [address] [facility] Sodium [Moles/Vol] 139 mmol/L Normal 136-145 [facility] Comment on above: Performed By: #### B MP, CBC ####[place] [id number] [facility] Urea nitrogen [Mass/Vol] 117 mg/dL High 12-09 [facility] Comment on above: Performed By: #### B MP, CBC ####[address] CNPNon 09-09-2022 CNPN Normal [facility] Complete Blood Count Auto Di ffon 09-09-2022 Basophils (Bld) [#/Vol] 0.0 10*3/uL Normal 0.0-0.2 [facility] Comment on above: Result Comment: PERF ORMED BY: [facility] [address] [place] [address] PATHOLOGIST SCRUBBING MACHINE OPERATOR RADHA PETERSON M.D. Performed By: #### B MP, CBC ####[place] [id number] [facility] Basophils/100 WBC (Bld) 1.0 % Normal . [facility] Comment on above: Performed By: #### B MP, CBC ####[place] [id number] [facility] Eosinophils (Bld) [#/Vol] 0.4 10*3/uL Normal 0.0-0.45 [facility] Comment on above: Performed By: #### B MP, CBC ####[place] [id number] [facility] Eosinophils/100 WBC (Bld) 11.9 % Normal . [facility] Comment on above: Performed By: #### B MP, CBC ####[facility] [address] Erythrocyte distribution width (RBC) [Ratio] 17.3 % High 12.0-14.8 [facility] Comment on above: Performed By: #### B MP, CBC ####[address] Hematocrit (Bld) [Volume fraction] 21.9 % Low 38.8-50.0 [facility] Comment on above: Performed By: #### B MP, CBC ####[address] Hemoglobin (Bld) [Mass/Vol] 7.6 g/dL Low 13.0-17.0 [facility] Comment on above: Performed By: #### B MP, CBC ####[address] Lymphocytes (Bld) [#/Vol] 0.8 10*3/uL Low 1.00-4.8 [facility] Comment on above: Performed By: #### B MP, CBC ####[address] Lymphocytes/100 WBC (Bld) 23.3 % Normal . [facility] Comment on above: Performed By: #### B MP, CBC ####[address] MCH (RBC) [Entitic mass] 29.4 pg Normal 27.5-35.2 [facility] Comment on above: Performed By: #### B MP, CBC ####[address] MCV (RBC) [Entitic vol] 84.7 fL Normal 83.5-101 [facility] Comment on above: Performed By: #### B MP, CBC ####[address] Mean Corpuscular HGB Conc 34.7 g/dL Normal 32.5-35.6 [facility] Comment on above: Performed By: #### B MP, CBC ####[address] [place] [address] [facility] Monocytes (Bld) [#/Vol] 0.5 10*3/uL Normal 0.0-0.8 [facility] Comment on above: Performed By: #### B MP, CBC ####[address] [address] [facility] Monocytes/100 WBC (Bld) 14.1 % Normal . [facility] Comment on above: Performed By: #### B MP, CBC ####[place] [id number] [facility] Neutrophils (Bld) [#/Vol] 1.8 10*3/uL Normal 1.8-7.7 [facility] Comment on above: Performed By: #### B MP, CBC ####[place] [address] [facility] Neutrophils/100 WBC (Bld) 49.7 % Normal . [facility] Comment on above: Performed By: #### B MP, CBC ####[place] [address] [facility] NRBC% 0.1 /100{WBC} Normal 0-0.5 [facility] Comment on above: Performed By: #### B MP, CBC ####[place] [address] [facility] Platelet mean volume (Bld) [Entitic vol] 7.0 fL Normal 6.6-10.1 [facility] Comment on above: Performed By: #### B MP, CBC ####[place] [id number] [facility] Platelets (Bld) [#/Vol] 146 10*3/uL Low 150-450 [facility] Comment on above: Performed By: #### B MP, CBC ####[place] [id number] [facility] RBC (Bld) [#/Vol] 2.58 10*6/uL Low 3.90-5.60 [facility] Comment on above: Performed By: #### B MP, CBC ####[facility] [id number] [place] [address] [facility] WBC (Bld) [#/Vol] 3.6 10*3/uL Low 4.1-10.5 [facility] Comment on above: Performed By: #### B MP, CBC ####[facility] [id number] [place] [address] [facility] Ferritinon 09-09-2022 Ferritin [Mass/Vol] 391.6 ng/mL High 23.9-336.2 [facility] Comment on above: Performed By: #### V [id number], HILL, PTH, PHOS, FE and TIBC ####[facility] [id number] [place] [id number] [facility] Ferritin [Mass/volume] in Se rum or PlasmaOrdered By: He Fam on 09-09-2022 Ferritin [Mass/Vol] 391.6 ng/mL 23.9-336.2 [facility] Folate [Mass/volume] in Seru m or PlasmaOrdered By: He Fam on 09-09-2022 Folate [Mass/Vol] 12.7 ng/mL >5.9 [facility] Comment on above: Folate reference ran ge: >5.9 ng/mlThe WHO technical consultation on folate and vitamin [id number] has determined that folate concentrations lessthan 4 ng/ml are considered deficient. Hepatitis Acute Panelon 08-17 HBsAg Screen Negative Normal Negative [facility] Comment on above: Performed By: #### H EPACUTE ####[facility] , Hepatitis A Antibody IgM Negative Normal Negative [facility] Comment on above: Performed By: #### H EPACUTE ####[facility] , Hepatitis B Core Antibody IgM Negative Normal Negative [facility] Comment on above: Performed By: #### H EPACUTE ####[facility] , Hepatitis C Virus Antibody Non-Reactive Normal Non Reactive [facility] Comment on above: Performed By: #### H EPACUTE ####[facility] , Interpretation Hepatitis C Normal . [facility] Comment on above: Result Comment: Not infected with HCV unless early or acute infection is suspected (which may be delayed in an immunocompromised individual), or other evidence exists to indicate HCV infection. Performed at: [address] [id number] Meat Counter Worker: Jose L Akers PhD, Phone: [phone] PERFORMED BY: [place] [address] PATHOLOGIST SCRUBBING MACHINE OPERATOR RADHA PETERSON M.D. Performed By: #### H EPACUTE ####[facility] , Hepatitis B Core Antibodyon 09-09-2022 Hepatitis B Core Antibody Negative Normal Negative [facility] Comment on above: Result Comment: Perf ormed at: [address] [id number] Meat Counter Worker: Jose L Akers PhD, Phone: [phone] PERFORMED BY: [address] [place] [address] PATHOLOGIST SCRUBBING MACHINE OPERATOR RADHA PETERSON M.D. Performed By: #### H BCAB, HBSAB ####[facility] , Hepatitis B Surface Antibody on 09-09-2022 Hepatitis B Surface Antibody Reactive Normal . [facility] Comment on above: Result Comment: Non Reactive: Inconsistent with immunity, less than 10 mIU/mL Reactive: Consistent with immunity, greater than 9.9 mIU/mL Performed By: #### H BCAB, HBSAB ####[facility] , Hepatitis B virus surface Ag [Presence] in Serum or Plasma by ImmunoassayOrdered By: He Fam on 09-09-2022 HBV surface Ag IA Ql Negative Negative [facility] Hepatitis C virus IgG Ab [Pr esence] in Serum or Plasma by ImmunoassayOrdered By: He Fam on 09-09-2022 HCV IgG IA Ql Non-Reactive Non Reactive [facility] Hepatitis C virus RNA [Units /volume] (viral load) in Serum or Plasma by WAYLON with probOrdered By: He Fam on 04-25-2023 HCV RNA WAYLON+probe Qn N/A [facility] Hepatitis C virus RNA [log u nits/volume] (viral load) in Serum or Plasma by WAYLON withOrdered By: He Fam on 09-09-2022 HCV RNA WAYLON+probe [Log units/Vol] N/A [facility] Iron [Mass/volume] in Serum or PlasmaOrdered By: He Fam on 09-09-2022 Iron [Mass/Vol] 84 ug/dL 50-212 [facility] Iron and TIBC Profileon 08-17 % Iron Saturation 50.9 % High 20-50 [facility] Comment on above: Performed By: #### V [id number], HILL, PTH, PHOS, FE and TIBC ####[place] [address] Iron [Mass/Vol] 84 ug/dL Normal 50-212 [facility] Comment on above: Performed By: #### V [id number], HILL, PTH, PHOS, FE and TIBC ####[address] Total Iron Binding Capacity 165 ug/dL Low 255-450 [facility] Comment on above: Performed By: #### V [id number], HILL, PTH, PHOS, FE and TIBC ####[place] [id number] [facility] Transferrin [Mass/Vol] 118 mg/dL Low 203-362 [facility] Comment on above: Performed By: #### V [id number], HILL, PTH, PHOS, FE and TIBC ####[address] Iron binding capacity [Mass/ volume] in Serum or PlasmaOrdered By: He Fam on 09-09-2022 Iron binding capacity [Mass/Vol] 165 ug/dL 255-450 [facility] Iron saturation [Mass Fracti on] in Serum or PlasmaOrdered By: He Fam on 09-09-2022 Iron saturation [Mass fraction] 50.9 % 20-50 [facility] No Panel InformationOrdered By: He Fam on 09-09-2022 Hepatitis A IgM Antibody Negative Negative [facility] Hepatitis B Core IgM Antibody Negative Negative [facility] Hepatitis B Core Total Antibody Negative Negative [facility] Comment on above: Performed at: CB - [facility] [address] [id number] Director: Jose L Akers PhD, Phone: [phone] Hepatitis C Interpretation See comment . [facility] Comment on above: Not infected with HC V unless early or acute infection issuspected (which may be delayed in an immunocompromisedindividual), or other evidence exists to indicate HCVinfection.Performed at: CB - [facility] [address] [id number] Director: Jose L Akers PhD, Phone: [phone] Hepatitis C RNA Quantitative N/A [facility] Parathyrin.intact [Mass/volu me] in Serum or PlasmaOrdered By: He Fam on 09-09-2022 Parathyrin.intact [Mass/Vol] 289.3 pg/mL [facility] Parathyroid Hormone Intacton 09-09-2022 Parathyroid Hormone Intact 289.3 pg/mL High [facility] Comment on above: Result Comment: PERF ORMED BY: [facility] [address] [place] [address] PATHOLOGIST SCRUBBING MACHINE OPERATOR RADHA PETERSON M.D. Performed By: #### V [id number], HILL, PTH, PHOS, FE and TIBC ####[place] [address] [place] [id number] [facility] Phosphate [Mass/volume] in S franky or PlasmaOrdered By: He Fam on 09-09-2022 Phosphate [Mass/Vol] 5.6 mg/dL 3.7-7.2 [facility] Phosphoruson 09-09-2022 Phosphate [Mass/Vol] 5.6 mg/dL Normal 3.7-7.2 [facility] Comment on above: Performed By: #### V [id number], HILL, PTH, PHOS, FE and TIBC ####[facility] [id number] Serum hepatitis B virus surf isabela antibody detectionOrdered By: He Fam on 09-09-2022 HBV surface Ab Ql (S) Reactive . [facility] Comment on above: Non Reactive: Incons istent with immunity, less than 10 mIU/mL Reactive: Consistent with immunity, greater than 9.9 mIU/mL Transferrin [Mass/volume] in Serum or PlasmaOrdered By: He Fam on 09-09-2022 Transferrin [Mass/Vol] 118 mg/dL 203-362 [facility] Vit. B12/Folate Profileon Cobalamin (Vitamin B12) [Mass/Vol] 724 pg/mL Normal 180-914 [facility] Comment on above: Performed By: #### V [id number], HILL, PTH, PHOS, FE and TIBC ####[facility] [id number] [place] [id number] [facility] Folate 12.7 ng/mL Normal >5.9 [facility] Comment on above: Result Comment: Yomaira te reference range: >5.9 ng/ml The WHO technical consultation on folate and vitamin b12 deficiencies has determined that folate concentrations less than 4 ng/ml are considered deficient. PERFORMED BY: [facility] [address] [place] [address] PATHOLOGIST SCRUBBING MACHINE OPERATOR RADHA PETERSON M.D. Performed By: #### V [id number], HILL, PTH, PHOS, FE and TIBC ####[facility] [id number] [place] [id number] [facility] Vitamin B12 ser/plasOrdered By: He Fam on 09-09-2022 Cobalamin (Vitamin B12) [Mass/Vol] 724 pg/mL 180-914 [facility] Alanine aminotransferase [En zymatic activity/volume] in Serum or PlasmaOrdered By: Zoila Mckinley on 09-08-2022 ALT [Catalytic activity/Vol] 18 U/L 7-52 [facility] Albumin [Mass/volume] in Ser um or Plasma by Bromocresol green (BCG) dye binding methoOrdered By: Zoila Mckinley on 09-08-2022 Albumin BCG dye [Mass/Vol] 3.8 g/dL 3.5-5.7 [facility] Alkaline phosphatase [Enzyma tic activity/volume] in Serum or PlasmaOrdered By: Zoila [facility] 09-08-2022 ALP [Catalytic activity/Vol] 69 U/L 34-104 [facility] Aspartate aminotransferase [ Enzymatic activity/volume] in Serum or PlasmaOrdered By: [facility]2022 AST [Catalytic activity/Vol] 16 U/L 13-39 [facility] Automated epithelial cells c ount in urine sediment (number/area)Ordered By: [facility] on 09-08-2022 Epithelial cells Auto (Urine sed) [#/Area] None seen [HPF] 0-2 [facility] Automated erythrocytes count in urine sediment (number/area)Or[facility] By: [facility]-2022 RBC Auto (Urine sed) [#/Area] 3-4 [HPF] 0-4 [facility] Automated leukocytes count i n urine sediment (number/area)Ordered By: [facility] 09-08-2022 WBC Auto (Urine sed) [#/Area] Innumerable [HPF] 0-4 [facility] Bacterial blood cultureOrder ed By: Zoila Mckinley on 09-08-2022 Bacteria identified Cx Nom (Bld) NO GROWTH 5 DAYS [facility] Bilirubin Auto test strip Ql (U)Ordered By: [facility] on 09-08-2022 Bilirubin Ql (U) Negative Negative [facility] Bilirubin.total [Mass/volume ] in Serum or PlasmaOrdered By: Zoila Arthicarlos on 09-08-2022 Bilirubin [Mass/Vol] 0.4 mg/dL 0.3-1.0 [facility] Blood Cultureon 09-08-2022 Bacteria identified Cx Nom (Bld) NO GROWTH 5 DAYS PERFORMED BY: [facility] [address] [place] [address] PATHOLOGIST SCRUBBING MACHINE OPERATOR RADHA PETERSON M.D. Normal [facility] Comment on above: Performed By: #### C UBLD ####[facility] [id number] [place] [id number] [facility] CNPNon 09-08-2022 CNPN Normal [facility] CT abdomen pelvis wo conon 0 09-08-2022 CT abdomen pelvis wo con [facility] [address] [place] [address] [place] [address] CT Scan Report Signed Patient: Mele Sky MR#: [id number] : 1955 Acct:[id number] Age/Sex: 66 / M ADM Date: 09/08/22 Loc: Room: [address] [place] [address] Type: ADM IN Attending Dr: Brandi Rodriguez MD Copies to: CHYNA Isidro MD Ordering Provider: Zoila Mckinley APRN Date of Service: 09/08/22 CT/CT abdomen pelvis wo con: retention CT abdomen and pelvis withoutcontrast TECHNIQUE: Axial imaging with 2-D reconstruction. . The CT exam was performed using one or more the following dose reduction techniques: Automated exposure control, adjustment of the MA and/or Kv according to patient size, or use of the iterative reconstruction technique. COMPARISON:None History: Urinary frequency LIMITATIONS: None LOWER THORAX 4 mm noncalcified left lower lobe lung nodule. The seen with image #4. No acute lung base findings. No pleural effusion. Gastric bypass changes. LIVER: Unremarkable GALLBLADDER: No gallbladder abnormality identified. BILE DUCTS: No dilatation SPLEEN: Unremarkable PANCREAS: Unremarkable ADRENAL GLANDS: Unremarkable KIDNEYS:Bilateral nephrolithiasis measures up to 7 mm. No obstructive uropathy. No ureteral stone. AORTA: No abdominal aortic aneurysm identified. RETROPERITONEUM: No significant retroperitoneal abnormalities identified. MESENTERY:Unremarkable SMALL BOWEL: The small bowel loops are nondistended. APPENDIX: The appendix is normal. COLON: Mild wall thickening of the distal sigmoid colon and rectum. Consider underdistention versus inflammatory changes. URINARY BLADDER: Moderate distention of urinary bladder. Moderate wall thickening of the urinary bladder. May consider cystitis or chronic obstructive changes. REPRODUCTIVE SYSTEM: Mild enlargement prostate gland. PNEUMOPERITONEUM: None PERITONEAL FLUID:None BONY STRUCTURES: Unremarkable ABDOMINAL WALL: Diffuse body wall edema. CT/CT abdomen pelvis wo con IMPRESSION: No acute findings. No bowel obstruction. No pneumoperitoneum. Unremarkable postsurgical change. Bilateral nephrolithiasis. No obstructive uropathy. Urinary bladder wall thickening. Consider chronic obstructive changes versus cystitis. Enlarged prostate gland. Focal region of wall thickening of the distal sigmoid colon and rectum. Consider underdistention versus inflammatory changes. May consider endoscopic assessment given history of GI bleed.. Impression dictated by: Rodrigo Bishop M.D.09/08/2022 5:06 PM Dictation Location: [place] [address] Transcribed By: [facility] 09/08/22 170 Dictated By: Rodrigo Bishop DO 09/08/22 1658 Signed By: 09/08/22 170 Normal [facility] Complete Blood Count Auto Di ffon 09-08-2022 Basophils (Bld) [#/Vol] 0.0 10*3/uL Normal 0.0-0.2 [facility] Comment on above: Result Comment: PERF ORMED BY: [facility] [address] [place] [address] PATHOLOGIST SCRUBBING MACHINE OPERATOR RADHA PETERSON M.D. Performed By: #### C JEN, CMP ####[address] Basophils/100 WBC (Bld) 1.0 % Normal . [facility] Comment on above: Performed By: #### C JEN, CMP ####[address] Eosinophils (Bld) [#/Vol] 0.3 10*3/uL Normal 0.0-0.45 [facility] Comment on above: Performed By: #### C JEN, CMP ####[address] Eosinophils/100 WBC (Bld) 7.8 % Normal . [facility] Comment on above: Performed By: #### C JEN, CMP ####[address] Erythrocyte distribution width (RBC) [Ratio] 17.3 % High 12.0-14.8 [facility] Comment on above: Performed By: #### C JEN, CMP ####[address] Hematocrit (Bld) [Volume fraction] 27.9 % Low 38.8-50.0 [facility] Comment on above: Performed By: #### C JEN, CMP ####[address] Hemoglobin (Bld) [Mass/Vol] 9.4 g/dL Low 13.0-17.0 [facility] Comment on above: Performed By: #### C JEN, CMP ####[address] Lymphocytes (Bld) [#/Vol] 1.0 10*3/uL Normal 1.00-4.8 [facility] Comment on above: Performed By: #### C JEN, CMP ####[address] Lymphocytes/100 WBC (Bld) 21.7 % Normal . [facility] Comment on above: Performed By: #### C JEN, CMP ####[address] MCH (RBC) [Entitic mass] 29.2 pg Normal 27.5-35.2 [facility] Comment on above: Performed By: #### C JEN, CMP ####[address] MCV (RBC) [Entitic vol] 86.3 fL Normal 83.5-101 [facility] Comment on above: Performed By: #### C JEN, CMP ####[address] Mean Corpuscular HGB Conc 33.8 g/dL Normal 32.5-35.6 [facility] Comment on above: Performed By: #### C JEN, CMP ####[address] Monocytes (Bld) [#/Vol] 0.7 10*3/uL Normal 0.0-0.8 [facility] Comment on above: Performed By: #### C JEN, CMP ####[address] Monocytes/100 WBC (Bld) 18.96 % Normal 0.00-20.00 [facility] Comment on above: Performed By: #### C JEN, CMP ####[address] Monocytes/100 WBC (Bld) 16.2 % Normal . [facility] Comment on above: Performed By: #### C JEN, CMP ####[address] Neutrophils (Bld) [#/Vol] 2.4 10*3/uL Normal 1.8-7.7 [facility] Comment on above: Performed By: #### C JEN, CMP ####[address] Neutrophils/100 WBC (Bld) 53.3 % Normal . [facility] Comment on above: Performed By: #### C JEN, CMP ####[address] NRBC% 0.2 /100{WBC} Normal 0-0.5 [facility] Comment on above: Performed By: #### C JEN, CMP ####[address] Platelet mean volume (Bld) [Entitic vol] 7.4 fL Normal 6.6-10.1 [facility] Comment on above: Performed By: #### C JEN, CMP ####[place] [id number] [facility] Platelets (Bld) [#/Vol] 167 10*3/uL Normal 150-450 [facility] Comment on above: Performed By: #### C JEN, CMP ####[address] RBC (Bld) [#/Vol] 3.24 10*6/uL Low 3.90-5.60 [facility] Comment on above: Performed By: #### C JEN, CMP ####[address] WBC (Bld) [#/Vol] 4.5 10*3/uL Normal 4.1-10.5 [facility] Comment on above: Performed By: #### C BC, CMP ####[address] [address] [facility] Comprehensive Metabolic Pane adalid 09-08-2022 Albumin [Mass/Vol] 3.8 g/dL Normal 3.5-5.7 [facility] Comment on above: Performed By: #### C BC, CMP ####[address] [address] [facility] Albumin/Globulin [Mass ratio] 1.2 {ratio} Normal [facility] Comment on above: Performed By: #### C BC, CMP ####[address] [address] [facility] ALP [Catalytic activity/Vol] 69 U/L Normal 34-104 [facility] Comment on above: Performed By: #### C BC, CMP ####[address] [address] [facility] ALT [Catalytic activity/Vol] 18 U/L Normal 7-52 [facility] Comment on above: Performed By: #### C BC, CMP ####[address] [address] [facility] Anion gap [Moles/Vol] 19.2 mmol/L High 6.0-15.0 [facility] Comment on above: Performed By: #### C BC, CMP ####[address] [address] [facility] AST [Catalytic activity/Vol] 16 U/L Normal 13-39 [facility] Comment on above: Performed By: #### C BC, CMP ####[address] [address] [facility] Bilirubin [Mass/Vol] 0.4 mg/dL Normal 0.3-1.0 [facility] Comment on above: Performed By: #### C BC, CMP ####[address] [address] [facility] Calcium [Mass/Vol] 7.8 mg/dL Low 8.6-10.3 [facility] Comment on above: Performed By: #### C BC, CMP ####[place] [address] [place] [id number] [facility] Chloride [Moles/Vol] 111 mmol/L High 98-107 [facility] Comment on above: Performed By: #### C BC, CMP ####[place] [id number] [facility] CO2 [Moles/Vol] 11.4 mmol/L Low 21.0-31.0 [facility] Comment on above: Performed By: #### C BC, CMP ####[address] Creatinine [Mass/Vol] 9.39 mg/dL High 0.70-1.30 [facility] Comment on above: Performed By: #### C BC, CMP ####[address] Creatinine Clr Calc Pharmacy 8.72 [facility] Comment on above: Result Comment: PERF ORMED BY: [facility] [address] [place] [address] PATHOLOGIST SCRUBBING MACHINE OPERATOR RADHA PETERSON M.D. Performed By: #### C BC, CMP ####[place] [id number] [facility] GFR/1.73 sq M.predicted MDRD (S/P/Bld) [Vol rate/Area] 5.719 mL/min/{1.73_m2} [facility] Comment on above: Performed By: #### C BC, CMP ####[place] [id number] [facility] Globulin (S) [Mass/Vol] 3.3 g/dL [facility] Comment on above: Performed By: #### C BC, CMP ####[place] [id number] [facility] Glucose [Mass/Vol] 91 mg/dL Normal 70-100 [facility] Comment on above: Result Comment: [place] Glucose Reference Range is dependent on time and content of last meal. Glucose of more than 200 mg/dL in a nonstressed, ambulatory subject supports the diagnosis of Diabetes Mellitus. ADA recommended reference range Performed By: #### C BC, CMP ####[facility] [place] [address] [facility] Potassium [Moles/Vol] 3.6 mmol/L Normal 3.5-5.1 [facility] Comment on above: Performed By: #### C BC, CMP ####[place] [address] [place] [address] [facility] Protein [Mass/Vol] 7.1 g/dL Normal 6.4-8.9 [facility] Comment on above: Performed By: #### C BC, CMP ####[address] [address] [facility] Sodium [Moles/Vol] 138 mmol/L Normal 136-145 [facility] Comment on above: Performed By: #### C BC, CMP ####[place] [address] [place] [address] [facility] Urea nitrogen [Mass/Vol] 124 mg/dL High 7-25 [facility] Comment on above: Performed By: #### C BC, CMP ####[facility] [place] [address] [place] Dipstick and Microscopicon 0 09-08-2022 Appearance (U) Cloudy Critically abnormal Clear [facility] Comment on above: Order Comment: Name Collection Type:: Clean-Voided Midstream Performed By: #### A DDONUAPLUS CUU ####[place] [address] [place] [address] [place] Bacteria,Urine 2+ High None Seen [facility] Comment on above: Order Comment: Name Collection Type:: Clean-Voided Midstream Result Comment: PERF ORMED BY: [facility] [address] [place] [id number] PATHOLOGIST SCRUBBING MACHINE OPERATOR RADHA PETERSON M.D. Performed By: #### A DDONUAPLUS, CUU ####[address] [address] [place] Bilirubin,Urine Negative Normal Negative [facility] Comment on above: Order Comment: Name Collection Type:: Clean-Voided Midstream Performed By: #### A DDONUAPLUS, CUU ####[address] [address] [facility] Color (U) Yellow Normal Yellow [facility] Comment on above: Order Comment: Name Collection Type:: Clean-Voided Midstream Performed By: #### A DDONUAPLUS, CUU ####[address] [address] [place] Glucose Ql (U) Normal Normal Normal [facility] Comment on above: Order Comment: Name Collection Type:: Clean-Voided Midstream Performed By: #### A DDONUAPLUS, CUU ####[place] [id number] [facility] Ketones Ql (U) Negative Normal Negative [facility] Comment on above: Order Comment: Name Collection Type:: Clean-Voided Midstream Performed By: #### A DDONUAPLUS, CUU ####[place] [id number] [facility] Leukocyte esterase Test strip Ql (U) 4+ High Negative [facility] Comment on above: Order Comment: Name Collection Type:: Clean-Voided Midstream Performed By: #### A DDONUAPLUS, CUU ####[address] [address] [place] Nitrite,Urine Negative Normal Negative [facility] Comment on above: Order Comment: Name Collection Type:: Clean-Voided Midstream Performed By: #### A DDONUAPLUS, CUU ####[place] [id number] [facility] Occult Blood,Urine 2+ High Negative [facility] Comment on above: Order Comment: Name Collection Type:: Clean-Voided Midstream Result Comment: PERF ORMED BY: [facility] [address] [place] [id number] PATHOLOGIST SCRUBBING MACHINE OPERATOR RADHA PETERSON M.D. Performed By: #### A DDONUAPLUS, CUU ####[place] [id number] [facility] pH (U) 6.0 [pH] Normal 5.0-9.0 [facility] Comment on above: Order Comment: Name Collection Type:: Clean-Voided Midstream Performed By: #### A DDONUAPLUS, CUU ####[place] [id number] [facility] Protein (U) [Mass/Vol] 100 mg/dL High Negative [facility] Comment on above: Order Comment: Name Collection Type:: Clean-Voided Midstream Performed By: #### A DDONUAPLUS, CUU ####[place] [id number] [facility] RBC,Urine 3-4 Normal 0-4 [facility] Comment on above: Order Comment: Name Collection Type:: Clean-Voided Midstream Performed By: #### A DDONUAPLUS, CUU ####[place] [id number] [facility] Specificy [place],Urine 1.015 Normal 1.001-1.030 [facility] Comment on above: Order Comment: Name Collection Type:: Clean-Voided Midstream Performed By: #### A DDONUAPLUS, CUU ####[place] [id number] [facility] Squamous Epithelial Cell,Urine None Seen Normal 0-2 [facility] Comment on above: Order Comment: Name Collection Type:: Clean-Voided Midstream Performed By: #### A DDONUAPLUS, CUU ####[address] [address] [facility] Urobilinogen,Urine Normal Normal Normal [facility] Comment on above: Order Comment: Name Collection Type:: Clean-Voided Midstream Performed By: #### A DDONUAPLUS, CUU ####[address] [address] [facility] WBC,Urine Innumerable High 0-4 [facility] Comment on above: Order Comment: Name Collection Type:: Clean-Voided Midstream Performed By: #### A DDONUAPLUS, CUU ####[facility] [place] [address] [facility] Free T4 (Free Thyroxine)on 0 09-08-2022 Free T4 [Mass/Vol] 0.73 ng/dL Normal 0.61-1.12 [facility] Comment on above: Performed By: #### T 4F, TSH3 ####[facility] [place] [id number] [facility] Globulin Calc (S) [Mass/Vol] Ordered By: Zoila Mckinley on 09-08-2022 Globulin (S) [Mass/Vol] 3.3 g/dL [facility] Ketones Auto test strip (U) [Mass/Vol]Ordered By: Zoila Mckinley on 09-08-2022 Ketones (U) [Mass/Vol] Negative Negative [facility] Monocyte distribution width [Entitic volume] in Blood by AutomatedOrdered By: Zoila Mckinley on 09-08-2022 Monocyte distribution width Auto (Bld) [Entitic vol] 18.96 % 0.00-20.00 [facility] Protein Auto test strip (U) [Mass/Vol]Ordered By: Zoila Mckinley on 09-08-2022 Protein (U) [Mass/Vol] 100 mg/dL Negative [facility] Protein [Mass/volume] in Ser um or PlasmaOrdered By: Zoila Mckinley on 09-08-2022 Protein [Mass/Vol] 7.1 g/dL 6.4-8.9 [facility] Serum or plasma albumin/glob ulin mass ratioOrdered By: Zoila Mckinley on 09-08-2022 Albumin/Globulin [Mass ratio] 1.2 {ratio} [facility] Thyroid Stimulating Hormoneo n 09-08-2022 TSH Qn 4.82 m[IU]/L Normal 0.45-5.33 [facility] Comment on above: Result Comment: PERF ORMED BY: [facility] [address] [place] [address] PATHOLOGIST SCRUBBING MACHINE OPERATOR RADHA PETERSON M.D. Performed By: #### T 4F, TSH3 ####[facility] [place] [address] [facility] Thyrotropin [Units/volume] i n Serum or PlasmaOrdered By: Zoila Mckinley on 09-08-2022 TSH Qn 4.82 m[IU]/L 0.45-5.33 [facility] Thyroxine (T4) free [Mass/vo lume] in Serum or PlasmaOrdered By: Zoila Mckinley on 09-08-2022 Free T4 [Mass/Vol] 0.73 ng/dL 0.61-1.12 [facility] Urine Cultureon 09-08-2022 Bacteria identified Cx Nom (U) >100,000 colonies/ml mixed bacterial skin contaminants 2 Days PERFORMED BY: [facility] [address] [facility] [place] [address] PATHOLOGIST SCRUBBING MACHINE OPERATOR RADHA PETERSON M.D. [facility] Comment on above: Performed By: #### A DDONUAPLUS, U ####[place] [address] [place] [address] [facility] Urine appearanceOrdered By: Zoila Mckinley on 09-08-2022 Appearance (U) Cloudy Clear [facility] Urine bacteria detection by automated methodOrdered By: Zoila Mckinley on 09-08-2022 Bacteria Auto Ql (U) 2+ None Seen [facility] Urine colorOrdered By: Lauren Mckinley on 09-08-2022 Color (U) Yellow Yellow [facility] Urine culture routineOrdered By: Zoila Mckinley on 09-08-2022 Bacteria identified Cx Nom (U) 2 Days [facility] Urine glucose measurement by automated test strip (mass/volume)Ordered By: Zoila Mckinley on 09-08-2022 Glucose Auto test strip (U) [Mass/Vol] Normal mg/dL Normal [facility] Urine hemoglobin detection b y automated test stripOrdered By: Zoila Mckinley on 09-08-2022 Hemoglobin Auto test strip Ql (U) 2+ Negative [facility] Urine leukocyte esterase det ection by automated test stripOrdered By: Zoila Mckinley on 09-08-2022 Leukocyte esterase Auto test strip Ql (U) 4+ Negative [facility] Urine nitrite detection by a utomated test stripOrdered By: Zoila Mckinley on 09-08-2022 Nitrite Auto test strip Ql (U) Negative Negative [facility] Urobilinogen Auto test strip (U) [Mass/Vol]Ordered By: Zoila Mckinley on 09-08-2022 Urobilinogen (U) [Mass/Vol] Normal mg/dL Normal [facility] pH Auto test strip (U)Ordere d By: Zoila Mckinley on 09-08-2022 pH (U) 1.015 [pH] 1.001-1.030 [facility] pH (U) 6.0 [pH] 5.0-9.0 [facility] CBC W Auto Differential pane l (Bld)on 08-28-2022 Basophils (Bld) [#/Vol] 0.04 10*3/uL Normal <0.11 [facility] Comment on above: Order Comment: Speci men Type: BLOOD SPECIMENOrdering Facility: [facility] Address: [address] [place] [address] Performed By: #### 5 7021-8 ####[facility] LABCLIA [id number] [place] [address] [place] Basophils/100 WBC (Bld) 0.5 % Normal [facility] Comment on above: Order Comment: Speci men Type: BLOOD SPECIMENOrdering Facility: [facility] Address: [address] [place] [address] Performed By: #### 5 7021-8 ####[facility] LABCLIA [id number] [place] [address] [place] Differential cell count method Nom (Bld) Auto Normal [facility] Comment on above: Order Comment: Speci men Type: BLOOD SPECIMENOrdering Facility: [facility] Address: [address] Performed By: #### 5 7021-8 ####[facility] LABCLIA [id number] [place] [address] [place] Eosinophils (Bld) [#/Vol] 0.71 10*3/uL High <0.46 [facility] Comment on above: Order Comment: Speci men Type: BLOOD SPECIMENOrdering Facility: [facility] Address: [address] [place] [address] Performed By: #### 5 7021-8 ####[facility] LABCLIA [id number] [place] [address] [place] Eosinophils/100 WBC (Bld) 9.0 % Normal [facility] Comment on above: Order Comment: Speci men Type: BLOOD SPECIMENOrdering Facility: [facility] Address: [address] [place] [address] Performed By: #### 5 7021-8 ####[facility] LABIA [id number] [place] [address] [place] Erythrocyte distribution width (RBC) [Ratio] 15.4 % High 11.5-15.0 [facility] Comment on above: Order Comment: Speci men Type: BLOOD SPECIMENOrdering Facility: [facility] Address: [address] [place] [address] Performed By: #### 5 7021-8 ####[facility] LABIA [id number] [place] [address] [place] Hematocrit (Bld) [Volume fraction] 26.8 % Low 39.0-51.0 [facility] Comment on above: Order Comment: Speci men Type: BLOOD SPECIMENOrdering Facility: [facility] Address: [address] [place] [address] Performed By: #### 5 7021-8 ####[facility] [facility] [place] LABIA [id number] [place] [address] [place] Hemoglobin (Bld) [Mass/Vol] 8.8 g/dL Low 13.0-17.0 [facility] Comment on above: Order Comment: Speci men Type: BLOOD SPECIMENOrdering Facility: [facility] Address: [address] [place], [place] [address] Performed By: #### 5 7021-8 ####[facility] [place] LABCLIA [id number] [place] [address] [place] Immature granulocytes (Bld) [#/Vol] 0.03 10*3/uL Normal <0.10 [facility] Comment on above: Order Comment: Speci men Type: BLOOD SPECIMENOrdering Facility: [facility] Address: [address] [place] [address] Performed By: #### 5 7021-8 ####[facility] [place] LABCLIA [id number] [place] [address] [place] Immature granulocytes/100 WBC (Bld) 0.4 % Normal [facility] Comment on above: Order Comment: Speci men Type: BLOOD SPECIMENOrdering Facility: [facility] Address: [address] [place], [place] [address] Performed By: #### 5 7021-8 ####[facility] [place] LABCLIA [id number] [place] [address] [place] Lymphocytes (Bld) [#/Vol] 1.07 10*3/uL Normal 1.00-4.00 [facility] Comment on above: Order Comment: Speci men Type: BLOOD SPECIMENOrdering Facility: [facility] Address: [address] Performed By: #### 5 7021-8 ####[facility] [place] LABCLIA [id number] [place] [address] [place] Lymphocytes/100 WBC (Bld) 13.6 % Normal [facility] Comment on above: Order Comment: Speci men Type: BLOOD SPECIMENOrdering Facility: [facility] Address: [address] [place], [place] [address] Performed By: #### 5 7021-8 ####[facility] [place] LABIA [id number] [address] MCH (RBC) [Entitic mass] 29.3 pg Normal 26.0-34.0 [facility] Comment on above: Order Comment: Speci men Type: BLOOD SPECIMENOrdering Facility: [facility] Address: [address] Performed By: #### 5 7021-8 ####[facility] [place] [facility] [id number] [address] [place] MCHC (RBC) [Mass/Vol] 32.8 g/dL Normal 30.5-36.0 [facility] Comment on above: Order Comment: Speci men Type: BLOOD SPECIMENOrdering Facility: [facility] Address: [address] Performed By: #### 5 7021-8 ####[facility] [id number] [address] [place] MCV (RBC) [Entitic vol] 89.3 fL Normal 80.0-100.0 [facility] Comment on above: Order Comment: Speci men Type: BLOOD SPECIMENOrdering Facility: [facility] Address: [address] Performed By: #### 5 7021-8 ####[facility] [place] LABIA [id number] [place] [address] [place] Monocytes (Bld) [#/Vol] 0.52 10*3/uL Normal <0.87 [facility] Comment on above: Order Comment: Speci men Type: BLOOD SPECIMENOrdering Facility: [facility] Address: [address] Performed By: #### 5 7021-8 ####[facility] [place] LABIA [id number] [place] [address] [place] Monocytes/100 WBC (Bld) 6.6 % Normal [facility] Comment on above: Order Comment: Speci men Type: BLOOD SPECIMENOrdering Facility: [facility] Address: [address] [place] [address] Performed By: #### 5 7021-8 ####[facility] [place] LABCLIA [id number] [place] [address] [place] Neutrophils (Bld) [#/Vol] 5.48 10*3/uL Normal 1.45-7.50 [facility] Comment on above: Order Comment: Speci men Type: BLOOD SPECIMENOrdering Facility: [facility] Address: [address] [place] [address] Performed By: #### 5 7021-8 ####[facility] [place] LABCLIA [id number] [place] [address] [place] Neutrophils/100 WBC (Bld) 69.9 % Normal [facility] Comment on above: Order Comment: Speci men Type: BLOOD SPECIMENOrdering Facility: [facility] Address: [address] [place], [place] [address] Performed By: #### 5 7021-8 ####[facility] [place] LABCLIA [id number] [place] [address] [place] Nucleated RBC (Bld) [#/Vol] 10*3/uL Normal <0.01 [facility] Comment on above: Order Comment: Speci men Type: BLOOD SPECIMENOrdering Facility: [facility] Address: [address] [place], [place] [address] Performed By: #### 5 7021-8 ####[facility] [place] LABCLIA [id number] [place] [address] [place] Nucleated RBC/100 WBC (Bld) [Ratio] 0.0 /100 WBC Normal [facility] Comment on above: Order Comment: Speci men Type: BLOOD SPECIMENOrdering Facility: [facility] Address: [address] [place], [place] [address] Performed By: #### 5 7021-8 ####[facility] [place] LABIA [id number] [place] [address] [place] Platelet mean volume (Bld) [Entitic vol] 9.6 fL Normal 9.0-12.7 [facility] Comment on above: Order Comment: Speci men Type: BLOOD SPECIMENOrdering Facility: [facility] Address: [address] [place], [place] [address] Performed By: #### 5 7021-8 ####[facility] [place] LABIA [id number] [place] [address] [place] Platelets (Bld) [#/Vol] 204 10*3/uL Normal 150-400 [facility] Comment on above: Order Comment: Speci men Type: BLOOD SPECIMENOrdering Facility: [facility] Address: [address] [place], [place] [address] Performed By: #### 5 7021-8 ####[facility] [place] LABIA [id number] [place] [address] [place] RBC (Bld) [#/Vol] 3.00 10*6/uL Low 4.20-6.00 [facility] Comment on above: Order Comment: Speci men Type: BLOOD SPECIMENOrdering Facility: [facility] Address: [address] [place], [place] [address] Performed By: #### 5 7021-8 ####[facility] [place] LABIA [id number] [place] [address] [place] WBC (Bld) [#/Vol] 7.85 10*3/uL Normal 3.70-11.00 [facility] Comment on above: Order Comment: Speci men Type: BLOOD SPECIMENOrdering Facility: [facility] Address: [address] [place], [place] [address] Performed By: #### 5 7021-8 ####[facility] [place] LABCLIA [id number] [place] [address] [place] CNOVon 08-28-2022 CNOV Normal [facility] CNPNon 08-28-2022 CNPN Normal [facility] Comprehensive metabolic 2000 panelon 08-28-2022 Albumin [Mass/Vol] 3.5 g/dL Low 3.9-4.9 [facility] Comment on above: Order Comment: Speci men Type: BLOOD SPECIMENOrdering Facility: [facility] Address: [address] [place] [address] Performed By: #### 1 9123-9, 2777-1, 76439-8 ####[facility] [place] LABIA [id number] [place] [address] [place] ALP [Catalytic activity/Vol] 77 U/L Normal 38-113 [facility] Comment on above: Order Comment: Speci men Type: BLOOD SPECIMENOrdering Facility: [facility] Address: [address] [place] [address] Performed By: #### 1 9123-9, 2777-1, 40156-5 ####[facility] [place] LABIA [id number] [address] [place] ALT [Catalytic activity/Vol] 17 U/L Normal 10-54 [facility] Comment on above: Order Comment: Speci men Type: BLOOD SPECIMENOrdering Facility: [facility] Address: [address] [place] [address] Performed By: #### 1 9123-9, 2777-, 61227-1 ####[facility] [place] LABIA [id number] [place] [address] [place] Anion gap [Moles/Vol] 13 mmol/L Normal 9-18 [facility] Comment on above: Order Comment: Speci men Type: BLOOD SPECIMENOrdering Facility: [facility] Address: [address] Performed By: #### 1 9123-9, 2777-1, 94373-6 ####[facility] [place] LABCLIA [id number] [place] [address] [place] AST [Catalytic activity/Vol] 19 U/L Normal 14-40 [facility] Comment on above: Order Comment: Speci men Type: BLOOD SPECIMENOrdering Facility: [facility] Address: [address] Performed By: #### 1 9123-9, 2777-1, 62948-3 ####[facility] [place] LABIA [id number] [place] [address] [place] Bilirubin [Mass/Vol] 0.3 mg/dL Normal 0.2-1.3 [facility] Comment on above: Order Comment: Speci men Type: BLOOD SPECIMENOrdering Facility: [facility] Address: [address] [place] [place] [address] Performed By: #### 1 9123-9, 27771, 72390-4 ####[facility] [place] LABIA [id number] [place] [address] [place] Calcium [Mass/Vol] 8.1 mg/dL Low 8.5-10.2 [facility] Comment on above: Order Comment: Speci men Type: BLOOD SPECIMENOrdering Facility: [facility] Address: [address] Performed By: #### 1 9123-9, 2777-, 01663-7 ####[facility] [place] LABIA [id number] [place] [address] [place] Chloride [Moles/Vol] 110 mmol/L High 97-105 [facility] Comment on above: Order Comment: Speci men Type: BLOOD SPECIMENOrdering Facility: [facility] Address: [address] Performed By: #### 1 9123-9, 2777, 19045-8 ####[facility] [place] LABCLIA [id number] [place] [address] [place] CO2 [Moles/Vol] 16 mmol/L Low 22-30 [facility] Comment on above: Order Comment: Speci men Type: BLOOD SPECIMENOrdering Facility: [facility] Address: [address] [place] [address] Performed By: #### 1 9123-9, 27711-15, ####[facility] [place] LABIA [id number] [place] [address] [place] Creatinine [Mass/Vol] 7.54 mg/dL High 0.73-1.22 [facility] Comment on above: Order Comment: Speci men Type: BLOOD SPECIMENOrdering Facility: [facility] Address: [address] [place] [address] Performed By: #### 1 9123-9, 2776-05, ####[facility] [place] LABIA [id number] [place] [address] [place] ESTIMATED GLOMERULAR FILTRATION RATE 7 mL/min/1.73m??? Low >=60 [facility] Comment on above: Order Comment: Speci men Type: BLOOD SPECIMENOrdering Facility: [facility] Address: [address] [place] [address] Result Comment: Lamar mated Glomerular Filtration Rate (eGFR) is calculated using the 2020 CKD-EPI creatinine equation. This equation utilizes serum creatinine, sex, and age as parameters. The creatinine assay has traceable calibration to isotope dilution-mass spectrometry. Refer to KDIGO guidelines for clinical interpretation. In patients with unstable renal function, e.g. those with acute kidney injury, the eGFR may not accurately reflect actual GFR. Performed By: #### 1 9123-9, 2777-, 47358-8 ####[facility] [place] LABIA [id number] [address] [id number] [address] [place] Glucose [Mass/Vol] 89 mg/dL Normal 74-99 [facility] Comment on above: Order Comment: Speci men Type: BLOOD SPECIMENOrdering Facility: [facility] Address: [address] [place] [address] Result Comment: The [place] [employer] (ADA) provides guidance for cutoff values for fasting glucose and random glucose. The ADA defines fasting as no caloric intake for at least 8 hours. Fasting plasma glucose results between 100 to 125 mg/dL indicate increased risk for diabetes (prediabetes).Fasting plasma glucose results greater than or equal to 126 mg/dL meet the criteria for diagnosis of diabetes. In the absence of unequivocal hyperglycemia, results should be confirmed by repeat testing. In a patient with classic symptoms of hyperglycemia or hyperglycemic crisis, random plasma glucose results greater than or equal to 200 mg/dL meet the criteria for diagnosis of diabetes.Reference: Standards of Medical Care in Diabetes 2016, [place] [employer]. Diabetes Care. 2016.39(Suppl 1). Performed By: #### 1 9123-9, 2777-, 41759-0 ####[facility] [place] LABCLIA [id number] [place] [address] [place] Potassium [Moles/Vol] 4.5 mmol/L Normal 3.7-5.1 [facility] Comment on above: Order Comment: Speci men Type: BLOOD SPECIMENOrdering Facility: [facility] Address: [address] [place], [place] [address] Performed By: #### 1 9123-9, 2777, 79179-2 ####[facility] [place] LABCLIA [id number] [place] [id number] [place] Protein [Mass/Vol] 6.0 g/dL Low 6.3-8.0 [facility] Comment on above: Order Comment: Speci men Type: BLOOD SPECIMENOrdering Facility: [facility] Address: [address] [place], [place] [address] Performed By: #### 1 9123-9, 2777-, 41051-7 ####[facility] [place] LABCLIA [id number] [place] [address] [place] Sodium [Moles/Vol] 139 mmol/L Normal 136-144 [facility] Comment on above: Order Comment: Speci men Type: BLOOD SPECIMENOrdering Facility: [facility] Address: [address] [place] [address] Performed By: #### 1 9123-9, 2777-1, 48794-0 ####[facility] [id number] [place] [address] [place] Urea nitrogen [Mass/Vol] 81 mg/dL High 9-24 [facility] Comment on above: Order Comment: Speci men Type: BLOOD SPECIMENOrdering Facility: [facility] Address: [address] [place] [address] Performed By: #### 1 9123-9, 2777-, 55370-8 ####[facility] [id number] [place] [address] [place] Magnesium SerPl-mCncon 08-28 Magnesium [Mass/Vol] 2.1 mg/dL Normal 1.7-2.3 [facility] Comment on above: Order Comment: Speci men Type: BLOOD SPECIMENOrdering Facility: [facility] Address: [address] [place] [address] Performed By: #### 1 9123-9, 2777-, 92542-4 ####[facility] [id number] [place] [address] [place] Phosphate SerPl-mCncon 08-28 Phosphate [Mass/Vol] 5.5 mg/dL High 2.7-4.8 [facility] Comment on above: Order Comment: Speci men Type: BLOOD SPECIMENOrdering Facility: [facility] Address: [address] [place] [address] Performed By: #### 1 9123-9, 2777-, 30455-2 ####[facility] [place] LABCLIA [id number] [place] [address] [place] CNPNon 08-22-2022 CNPN Normal [facility] CNPNon 08-18-2022 CNPN Normal [facility] CBC W Auto Differential pane l (Bld)on 08-13-2022 Basophils (Bld) [#/Vol] 0.05 10*3/uL Normal <0.11 [facility] Comment on above: Order Comment: Speci men Type: BLOOD SPECIMENOrdering Facility: [facility] Address: [address] [address] Performed By: #### 5 7021-8 ####[facility] [place] LABCLIA [id number] [place] [address] [place] Basophils/100 WBC (Bld) 1.0 % Normal [facility] Comment on above: Order Comment: Speci men Type: BLOOD SPECIMENOrdering Facility: [facility] Address: [address] [address] Performed By: #### 5 7021-8 ####[facility] [place] LABCLIA [id number] [place] [address] [place] Differential cell count method Nom (Bld) Auto Normal [facility] Comment on above: Order Comment: Speci men Type: BLOOD SPECIMENOrdering Facility: [facility] Address: [address] Performed By: #### 5 7021-8 ####[facility] [place] LABCLIA [id number] [place] [address] [place] Eosinophils (Bld) [#/Vol] 0.24 10*3/uL Normal <0.46 [facility] Comment on above: Order Comment: Speci men Type: BLOOD SPECIMENOrdering Facility: [facility] Address: [address] Performed By: #### 5 7021-8 ####[facility] [place] LABCLIA [id number] [place] [address] [place] Eosinophils/100 WBC (Bld) 4.7 % Normal [facility] Comment on above: Order Comment: Speci men Type: BLOOD SPECIMENOrdering Facility: [facility] Address: [address] [place] [address] Performed By: #### 5 7021-8 ####[facility] [place] LABCLIA [id number] [place] [address] [place] Erythrocyte distribution width (RBC) [Ratio] 15.1 % High 11.5-15.0 [facility] Comment on above: Order Comment: Speci men Type: BLOOD SPECIMENOrdering Facility: [facility] Address: [address] [place] [address] Performed By: #### 5 7021-8 ####[facility] [place] LABIA [id number] [place] [address] [place] Hematocrit (Bld) [Volume fraction] 23.9 % Low 39.0-51.0 [facility] Comment on above: Order Comment: Speci men Type: BLOOD SPECIMENOrdering Facility: [facility] Address: [address] [place] [address] Performed By: #### 5 7021-8 ####[facility] [place] LABIA [id number] [place] [address] [place] Hemoglobin (Bld) [Mass/Vol] 7.8 g/dL Low 13.0-17.0 [facility] Comment on above: Order Comment: Speci men Type: BLOOD SPECIMENOrdering Facility: [facility] Address: [address] [place], [place] [address] Performed By: #### 5 7021-8 ####[facility] [place] LABCLIA [id number] [place] [address] [place] Immature granulocytes (Bld) [#/Vol] 10*3/uL Normal <0.10 [facility] Comment on above: Order Comment: Speci men Type: BLOOD SPECIMENOrdering Facility: [facility] Address: [address] Performed By: #### 5 7021-8 ####[facility] [place] LABCLIA [id number] [place] [address] [place] Immature granulocytes/100 WBC (Bld) 0.4 % Normal [facility] Comment on above: Order Comment: Speci men Type: BLOOD SPECIMENOrdering Facility: [facility] Address: [address] Performed By: #### 5 7021-8 ####[facility] [place] LABIA [id number] [place] [address] [place] Lymphocytes (Bld) [#/Vol] 1.16 10*3/uL Normal 1.00-4.00 [facility] Comment on above: Order Comment: Speci men Type: BLOOD SPECIMENOrdering Facility: [facility] Address: [address] Performed By: #### 5 7021-8 ####[facility] [place] LABIA [id number] [address] [place] Lymphocytes/100 WBC (Bld) 22.7 % Normal [facility] Comment on above: Order Comment: Speci men Type: BLOOD SPECIMENOrdering Facility: [facility] Address: [address] Performed By: #### 5 7021-8 ####[facility] [place] LABIA [id number] [place] [address] [place] MCH (RBC) [Entitic mass] 29.4 pg Normal 26.0-34.0 [facility] Comment on above: Order Comment: Speci men Type: BLOOD SPECIMENOrdering Facility: [facility] Address: [address] Performed By: #### 5 7021-8 ####[facility] [place] LABCLIA [id number] [place] [address] [place] MCHC (RBC) [Mass/Vol] 32.6 g/dL Normal 30.5-36.0 [facility] Comment on above: Order Comment: Speci men Type: BLOOD SPECIMENOrdering Facility: [facility] Address: [address] [place], [place] [address] Performed By: #### 5 7021-8 ####[facility] [place] LABIA [id number] [place] [address] [place] MCV (RBC) [Entitic vol] 90.2 fL Normal 80.0-100.0 [facility] Comment on above: Order Comment: Speci men Type: BLOOD SPECIMENOrdering Facility: [facility] Address: [address] [place], [place] [address] Performed By: #### 5 7021-8 ####[facility] [place] LABIA [id number] [place] [address] [place] Monocytes (Bld) [#/Vol] 0.49 10*3/uL Normal <0.87 [facility] Comment on above: Order Comment: Speci men Type: BLOOD SPECIMENOrdering Facility: [facility] Address: [address] [place], [place] [address] Performed By: #### 5 7021-8 ####[facility] [place] LABIA [id number] [place] [address] [place] Monocytes/100 WBC (Bld) 9.6 % Normal [facility] Comment on above: Order Comment: Speci men Type: BLOOD SPECIMENOrdering Facility: [facility] Address: [address] [place], [place] [address] Performed By: #### 5 7021-8 ####[facility] [place] LABIA [id number] [place] [address] [place] Neutrophils (Bld) [#/Vol] 3.14 10*3/uL Normal 1.45-7.50 [facility] Comment on above: Order Comment: Speci men Type: BLOOD SPECIMENOrdering Facility: [facility] Address: [address] [place] [address] Performed By: #### 5 7021-8 ####[facility] [place] LABCLIA [id number] [place] [address] [place] Neutrophils/100 WBC (Bld) 61.6 % Normal [facility] Comment on above: Order Comment: Speci men Type: BLOOD SPECIMENOrdering Facility: [facility] Address: [address] [place] [address] Performed By: #### 5 7021-8 ####[facility] [place] LABCLIA [id number] [place] [address] [place] Nucleated RBC (Bld) [#/Vol] 10*3/uL Normal <0.01 [facility] Comment on above: Order Comment: Speci men Type: BLOOD SPECIMENOrdering Facility: [facility] Address: [address] [place] [address] Performed By: #### 5 7021-8 ####[facility] [place] LABCLIA [id number] [place] [address] [place] Nucleated RBC/100 WBC (Bld) [Ratio] 0.0 /100 WBC Normal [facility] [facility] Comment on above: Order Comment: Speci men Type: BLOOD SPECIMENOrdering Facility: [facility] Address: [address] [place], [place] [address] Performed By: #### 5 7021-8 ####[facility] [place] LABCLIA [id number] [place] [address] [place] Platelet mean volume (Bld) [Entitic vol] 9.4 fL Normal 9.0-12.7 [facility] Comment on above: Order Comment: Speci men Type: BLOOD SPECIMENOrdering Facility: [facility] Address: [address] [place], [place] [address] Performed By: #### 5 7021-8 ####[facility] [place] LABIA [id number] [place] [address] [place] Platelets (Bld) [#/Vol] 169 10*3/uL Normal 150-400 [facility] Comment on above: Order Comment: Speci men Type: BLOOD SPECIMENOrdering Facility: [facility] Address: [address] [place] [address] Performed By: #### 5 7021-8 ####[facility] [place] LABIA [id number] [place] [address] [place] RBC (Bld) [#/Vol] 2.65 10*6/uL Low 4.20-6.00 [facility] Comment on above: Order Comment: Speci men Type: BLOOD SPECIMENOrdering Facility: [facility] Address: [address] [place] [address] Performed By: #### 5 7021-8 ####[facility] [place] LABIA [id number] [address] [place] WBC (Bld) [#/Vol] 5.10 10*3/uL Normal 3.70-11.00 [facility] Comment on above: Order Comment: Speci men Type: BLOOD SPECIMENOrdering Facility: [facility] Address: [address] [place], [place] [address] Performed By: #### 5 7021-8 ####[facility] [place] LABIA [id number] [place] [address] [place] CNDSon 08-13-2022 CNDS Normal [facility] Comprehensive metabolic 2000 panelon 08-13-2022 Albumin [Mass/Vol] 2.5 g/dL Low 3.9-4.9 [facility] Comment on above: Order Comment: Speci men Type: BLOOD SPECIMENOrdering Facility: [facility] Address: [address] [place] [address] Performed By: #### 2 4323-8, 33050-0, 2776-05 ####[facility] [place] LABCLIA [id number] [place] [address] [place] ALP [Catalytic activity/Vol] 60 U/L Normal 38-113 [facility] Comment on above: Order Comment: Speci men Type: BLOOD SPECIMENOrdering Facility: [facility] Address: [address] [place] [address] Performed By: #### 2 4323-8, , 2776-05 ####[facility] [place] LABCLIA [id number] [place] [address] [place] ALT [Catalytic activity/Vol] 14 U/L Normal 10-54 [facility] Comment on above: Order Comment: Speci men Type: BLOOD SPECIMENOrdering Facility: [facility] Address: [address] [place] [address] Performed By: #### 2 4323-8, , 2776-05 ####[facility] [place] LABCLIA [id number] [place] [address] [place] Anion gap [Moles/Vol] 11 mmol/L Normal 9-18 [facility] Comment on above: Order Comment: Speci men Type: BLOOD SPECIMENOrdering Facility: [facility] Address: [address] [place], [place] [address] Performed By: #### 2 4323-8, , 2776-05 ####[facility] [place] LABCLIA [id number] [place] [address] [place] AST [Catalytic activity/Vol] 14 U/L Normal 14-40 [facility] Comment on above: Order Comment: Speci men Type: BLOOD SPECIMENOrdering Facility: [facility] Address: [address] [place], [place] [address] Performed By: #### 2 4323-8, , 2776-05 ####[facility] [place] LABCLIA [id number] [place] [address] [place] Bilirubin [Mass/Vol] 0.2 mg/dL Normal 0.2-1.3 [facility] Comment on above: Order Comment: Speci men Type: BLOOD SPECIMENOrdering Facility: [facility] Address: [address] [place], [place] [address] Performed By: #### 2 432-8, , 2776-05 ####[facility] [place] LABCLIA [id number] [place] [address] [place] Calcium [Mass/Vol] 7.3 mg/dL Low 8.5-10.2 [facility] Comment on above: Order Comment: Speci men Type: BLOOD SPECIMENOrdering Facility: [facility] Address: [address] [place], [place] [address] Performed By: #### 2 432-8, , 2776-05 ####[facility] [place] LABCLIA [id number] [place] [address] [place] Chloride [Moles/Vol] 102 mmol/L Normal 97-105 [facility] Comment on above: Order Comment: Speci men Type: BLOOD SPECIMENOrdering Facility: [facility] Address: [address] [place], [place] [address] Performed By: #### 2 432-8, , 2776-05 ####[facility] [place] LABCLIA [id number] [place] [address] [place] CO2 [Moles/Vol] 25 mmol/L Normal 22-30 [facility] Comment on above: Order Comment: Speci men Type: BLOOD SPECIMENOrdering Facility: [facility] Address: [address] [place], [place] [address] Performed By: #### 2 4323-8, , 2776-05 ####[facility] [place] LABCLIA [id number] [address] [address] [place] Creatinine [Mass/Vol] 7.43 mg/dL High 0.73-1.22 [facility] Comment on above: Order Comment: Chayito hudson Type: BLOOD SPECIMENOrdering Facility: [facility] Address: [address] [address] Performed By: #### 2 4323-8, 79949-7, 2776-05 ####[facility] [place] LABIA [id number] [place] [address] [place] ESTIMATED GLOMERULAR FILTRATION RATE 8 mL/min/1.73m??? Low >=60 [facility] Comment on above: Order Comment: Chayito hudson Type: BLOOD SPECIMENOrdering Facility: [facility] Address: [address] [address] Result Comment: Lamar mated Glomerular Filtration Rate (eGFR) is calculated using the 2020 CKD-EPI creatinine equation. This equation utilizes serum creatinine, sex, and age as parameters. The creatinine assay has traceable calibration to isotope dilution-mass spectrometry. Refer to KDIGO guidelines for clinical interpretation. In patients with unstable renal function, e.g. those with acute kidney injury, the eGFR may not accurately reflect actual GFR. Performed By: #### 2 4323-8, , 2776-05 ####[facility] [place] LABIA [id number] [place] [address] [place] Glucose [Mass/Vol] 76 mg/dL Normal 74-99 [facility] Comment on above: Order Comment: Chayito hudson Type: BLOOD SPECIMENOrdering Facility: [facility] Address: [address] [address] Result Comment: The [place] Diabetes Association (ADA) provides guidance for cutoff values for fasting glucose and random glucose. The ADA defines fasting as no caloric intake for at least 8 hours. Fasting plasma glucose results between 100 to 125 mg/dL indicate increased risk for diabetes (prediabetes).Fasting plasma glucose results greater than or equal to 126 mg/dL meet the criteria for diagnosis of diabetes. In the absence of unequivocal hyperglycemia, results should be confirmed by repeat testing. In a patient with classic symptoms of hyperglycemia or hyperglycemic crisis, random plasma glucose results greater than or equal to 200 mg/dL meet the criteria for diagnosis of diabetes.Reference: Standards of Medical Care in Diabetes 2016, [place] [employer]. Diabetes Care. 2016.39(Suppl 1). Performed By: #### 2 4323-8, , 2776-05 ####[facility] [place] LABCLIA [id number] [place] [address] [place] Potassium [Moles/Vol] 4.8 mmol/L Normal 3.7-5.1 [facility] Comment on above: Order Comment: Speci men Type: BLOOD SPECIMENOrdering Facility: [facility] Address: [address] [id number] Performed By: #### 2 4323-8, , 2776-05 ####[facility] [place] LABCLIA [id number] [place] [address] [place] Protein [Mass/Vol] 4.8 g/dL Low 6.3-8.0 [facility] Comment on above: Order Comment: Speci men Type: BLOOD SPECIMENOrdering Facility: [facility] Address: [address] Performed By: #### 2 4323-8, , 2776-05 ####[facility] [place] LABCLIA [id number] [place] [id number] [place] Sodium [Moles/Vol] 138 mmol/L Normal 136-144 [facility] Comment on above: Order Comment: Speci men Type: BLOOD SPECIMENOrdering Facility: [facility] Address: [address] [address] Performed By: #### 2 4323-8, , 2776-05 ####[facility] [place] LABCLIA [id number] [place] [id number] [place] Urea nitrogen [Mass/Vol] 71 mg/dL High 9-24 [facility] Comment on above: Order Comment: Speci men Type: BLOOD SPECIMENOrdering Facility: [facility] Address: [address] [place] [address] Performed By: #### 2 4323-8, , 2776-05 ####[facility] [place] LABCLIA [id number] [place] [address] [place] Hcys SerPl-sCncon 08-13-2022 Homocysteine [Moles/Vol] 24.5 umol/L High <15.1 [facility] Comment on above: Order Comment: Speci men Type: BLOOD SPECIMENOrdering Facility: [facility] Address: [address] [place] [address] Performed By: #### 1 3965-9 ####[facility] [place] LABCLIA [id number] [place] [address] [place] Magnesium SerPl-mCncon 08-13 Magnesium [Mass/Vol] 2.3 mg/dL Normal 1.7-2.3 [facility] Comment on above: Order Comment: Speci men Type: BLOOD SPECIMENOrdering Facility: [facility] Address: [address] [place], [place] [address] Performed By: #### 2 4323-8, , 2776-05 ####[facility] LABCLIA [id number] [place] [address] [place] PT EDon 08-13-2022 PT ED Normal [facility] Phosphate SerPl-mCncon 08-13 Phosphate [Mass/Vol] 4.4 mg/dL Normal 2.7-4.8 [facility] Comment on above: Order Comment: Speci men Type: BLOOD SPECIMENOrdering Facility: [facility] Address: [address] [place], [place] [address] Performed By: #### 2 4323-8, , 2776-05 ####[facility] [place] LABCLIA [id number] [place] [address] [place] TYPE + SCREENon 08-13-2022 ABO B Normal [facility] Comment on above: Order Comment: Speci men Type: BLOOD SPECIMENOrdering Facility: [facility] Address: [address] [place] [address] Performed By: #### T SCR ####[facility] BLOOD BANKCLIA [id number] [place] [address] [place] HISTORICAL AB SCR STATUS Negative Normal [facility] Comment on above: Order Comment: Speci men Type: BLOOD SPECIMENOrdering Facility: [facility] Address: [address] [place] [address] Performed By: #### T SCR ####[facility] BLOOD BANKCLIA [id number] [place] [address] [place] Rh Nom (Bld) Positive Normal [facility] Comment on above: Order Comment: Speci men Type: BLOOD SPECIMENOrdering Facility: [facility] Address: [address] [place] [address] Performed By: #### T SCR ####[facility] BLOOD BANKCLIA [id number] [place] [address] [place] TYPE AND SCREEN EXPIRATION 08/16/2022 23:59 Normal [facility] Comment on above: Order Comment: Speci men Type: BLOOD SPECIMENOrdering Facility: [facility] Address: [address] [place] [address] Performed By: #### T SCR ####CC [facility] BLOOD BANKCLIA [id number] [place] [address] [place] 25(OH)D3 SerPl-mCncon 2022 25-hydroxyvitamin D3 [Mass/Vol] 18.5 ng/mL Low 31.0-80.0 [facility] Comment on above: Order Comment: Speci men Type: BLOOD SPECIMENOrdering Facility: [facility] Address: [address] [place] [address] Result Comment: Clas sification of 25 [place] Vitamin D status:Deficiency/Insufficiency: < or = 30 ng/ml.Sufficiency/Optimal Levels: 31-80 ng/mLToxicity: > 100 ng/mL.Test performed by chemiluminescent immunoassay. Performed By: #### 1 989-3 ####[facility] [place] LABIA [id number] [address] STATES OF [facility] A-Tocopherol Vit E SerPl-mCn con 08-12-2022 Alpha tocopherol [Mass/Vol] 2.8 mg/L Low 6.0-23.0 [facility] Comment on above: Order Comment: Speci men Type: BLOOD SPECIMENOrdering Facility: [facility] Address: [address] [place] [address] Performed By: #### 1 823-4, 2923-1 ####[facility]TON[facility] [id number] [address] Alpha tocopherol [Mass/Vol]o n 08-12-2022 Beta+gamma tocopherol [Mass/Vol] 0.2 mg/L Low 0.3-3.2 [facility] Comment on above: Order Comment: Speci men Type: BLOOD SPECIMENOrdering Facility: [facility] Address: [address] [place] [address] Result Comment: This test was developed and its performance characteristics determined by [facility]'s [facility] Path[facility] [place] ([facility]). It has not been cleared or approved by the FDA. [facility] is regulated under CLIA as qualified to perform high-complexity testing. This test is used for clinical purposes. It should not be regarded as investigational or for research. Performed By: #### 1 823-4, 2923-1 ####[facility] LABIA [id number] [place] [address] [place] CBC W Auto Differential pane l (Bld)on 08-12-2022 Basophils (Bld) [#/Vol] 0.04 10*3/uL Normal <0.11 [facility] Comment on above: Order Comment: Speci men Type: BLOOD SPECIMENOrdering Facility: [facility] Address: [address] [place] [address] Performed By: #### 5 7021-8 ####[facility] [place] LABCLIA [id number] [facility] [address] [place] Basophils/100 WBC (Bld) 1.0 % Normal [facility] Comment on above: Order Comment: Speci men Type: BLOOD SPECIMENOrdering Facility: [facility] Address: [address] [place] [address] Performed By: #### 5 7021-8 ####[facility] [place] LABCLIA [id number] [place] [address] [place] Differential cell count method Nom (Bld) Auto Normal [facility] Comment on above: Order Comment: Speci men Type: BLOOD SPECIMENOrdering Facility: [facility] Address: [address] [place] [address] Performed By: #### 5 7021-8 ####[facility] [place] LABCLIA [id number] [place] [address] [place] Eosinophils (Bld) [#/Vol] 0.25 10*3/uL Normal <0.46 [facility] Comment on above: Order Comment: Speci men Type: BLOOD SPECIMENOrdering Facility: [facility] Address: [address] [place] [address] Performed By: #### 5 7021-8 ####[facility] [place] LABCLIA [id number] [place] [address] [place] Eosinophils/100 WBC (Bld) 6.2 % Normal [facility] Comment on above: Order Comment: Speci men Type: BLOOD SPECIMENOrdering Facility: [facility] Address: [address] [place] [address] Performed By: #### 5 7021-8 ####[facility] [place] LABCLIA [id number] [place] [address] [place] Erythrocyte distribution width (RBC) [Ratio] 15.1 % High 11.5-15.0 [facility] Comment on above: Order Comment: Speci men Type: BLOOD SPECIMENOrdering Facility: [facility] Address: [address] Performed By: #### 5 7021-8 ####[facility] [place] LABIA [id number] [place] [address] [place] Hematocrit (Bld) [Volume fraction] 24.6 % Low 39.0-51.0 [facility] Comment on above: Order Comment: Speci men Type: BLOOD SPECIMENOrdering Facility: [facility] Address: [address] [place], [place] [address] Performed By: #### 5 7021-8 ####[facility] [place] LABIA [id number] [place] [address] [place] Hemoglobin (Bld) [Mass/Vol] 8.0 g/dL Low 13.0-17.0 [facility] Comment on above: Order Comment: Speci men Type: BLOOD SPECIMENOrdering Facility: [facility] Address: [address] [place], [place] [address] Performed By: #### 5 7021-8 ####[facility] [place] LABIA [id number] [place] [address] [place] Immature granulocytes (Bld) [#/Vol] 10*3/uL Normal <0.10 [facility] Comment on above: Order Comment: Speci men Type: BLOOD SPECIMENOrdering Facility: [facility] Address: [address] Performed By: #### 5 7021-8 ####[facility] LABIA [id number] [place] [address] [place] Immature granulocytes/100 WBC (Bld) 0.5 % Normal [facility] Comment on above: Order Comment: Speci men Type: BLOOD SPECIMENOrdering Facility: [facility] Address: [address] [place] [address] Performed By: #### 5 7021-8 ####[facility] [place] LABCLIA [id number] [place] [address] [place] Lymphocytes (Bld) [#/Vol] 1.07 10*3/uL Normal 1.00-4.00 [facility] Comment on above: Order Comment: Speci men Type: BLOOD SPECIMENOrdering Facility: [facility] Address: [address] [place] [address] Performed By: #### 5 7021-8 ####[facility] LABCLIA [id number] [place] [address] [place] Lymphocytes/100 WBC (Bld) 26.7 % Normal [facility] Comment on above: Order Comment: Speci men Type: BLOOD SPECIMENOrdering Facility: [facility] Address: [address] [place] [address] Performed By: #### 5 7021-8 ####[facility] LABCLIA [id number] [place] [address] [place] MCH (RBC) [Entitic mass] 29.3 pg Normal 26.0-34.0 [facility] Comment on above: Order Comment: Speci men Type: BLOOD SPECIMENOrdering Facility: [facility] Address: [address] [place], [place] [address] Performed By: #### 5 7021-8 ####[facility] LABCLIA [id number] [place] [address] [place] MCHC (RBC) [Mass/Vol] 32.5 g/dL Normal 30.5-36.0 [facility] Comment on above: Order Comment: Speci men Type: BLOOD SPECIMENOrdering Facility: [facility] Address: [address] Performed By: #### 5 7021-8 ####[facility] LABCLIA [id number] [place] [address] [place] MCV (RBC) [Entitic vol] 90.1 fL Normal 80.0-100.0 [facility] Comment on above: Order Comment: Speci men Type: BLOOD SPECIMENOrdering Facility: [facility] Address: [address] [place], [place] [address] Performed By: #### 5 7021-8 ####[facility] LABCLIA [id number] [place] [address] [place] Monocytes (Bld) [#/Vol] 0.46 10*3/uL Normal <0.87 [facility] Comment on above: Order Comment: Speci men Type: BLOOD SPECIMENOrdering Facility: [facility] Address: [address] [place], [place] [address] Performed By: #### 5 7021-8 ####[facility] LABCLIA [id number] [place] [address] [place] Monocytes/100 WBC (Bld) 11.5 % Normal [facility] Comment on above: Order Comment: Speci men Type: BLOOD SPECIMENOrdering Facility: [facility] Address: [address] [place], [place] [address] Performed By: #### 5 7021-8 ####[facility] LABCLIA [id number] [place] [address] [place] Neutrophils (Bld) [#/Vol] 2.17 10*3/uL Normal 1.45-7.50 [facility] Comment on above: Order Comment: Speci men Type: BLOOD SPECIMENOrdering Facility: [facility] Address: [address] [place] [address] Performed By: #### 5 7021-8 ####[facility] LABCLIA [id number] [place] [address] [place] Neutrophils/100 WBC (Bld) 54.1 % Normal [facility] Comment on above: Order Comment: Speci men Type: BLOOD SPECIMENOrdering Facility: [facility] Address: [address] [place], [place] [address] Performed By: #### 5 7021-8 ####[facility] LABCLIA [id number] [place] [address] [place] Nucleated RBC (Bld) [#/Vol] 10*3/uL Normal <0.01 [facility] Comment on above: Order Comment: Speci men Type: BLOOD SPECIMENOrdering Facility: [facility] Address: [address] [place], [place] [address] Performed By: #### 5 7021-8 ####[facility] LABIA [id number] [place] [address] [place] Nucleated RBC/100 WBC (Bld) [Ratio] 0.0 /100 WBC Normal [facility] Comment on above: Order Comment: Speci men Type: BLOOD SPECIMENOrdering Facility: [facility] Address: [address] [place], [place] [address] Performed By: #### 5 7021-8 ####[facility] LABCLIA [id number] [place] [address] [place] Platelet mean volume (Bld) [Entitic vol] 9.8 fL Normal 9.0-12.7 [facility] Comment on above: Order Comment: Speci men Type: BLOOD SPECIMENOrdering Facility: [facility] Address: [address] [place], [place] [address] Performed By: #### 5 7021-8 ####[facility] LABCLIA [id number] [place] [address] [place] Platelets (Bld) [#/Vol] 175 10*3/uL Normal 150-400 [facility] Comment on above: Order Comment: Speci men Type: BLOOD SPECIMENOrdering Facility: [facility] Address: [address] [place] [address] Performed By: #### 5 7021-8 ####[facility] [place] LABCLIA [id number] [place] [address] [place] RBC (Bld) [#/Vol] 2.73 10*6/uL Low 4.20-6.00 [facility] Comment on above: Order Comment: Speci men Type: BLOOD SPECIMENOrdering Facility: [facility] Address: [address] [place] [address] Performed By: #### 5 7021-8 ####[facility] LABCLIA [id number] [place] [address] [place] WBC (Bld) [#/Vol] 4.01 10*3/uL Normal 3.70-11.00 [facility] Comment on above: Order Comment: Speci men Type: BLOOD SPECIMENOrdering Facility: [facility] Address: [address] [place] [address] Performed By: #### 5 7021-8 ####[facility] LABCLIA [id number] [place] [address] [place] COPPER BLOODon 08-12-2022 Copper [Mass/Vol] 40 ug/dL Low 70-140 [facility] Comment on above: Order Comment: Speci men Type: BLOOD SPECIMENOrdering Facility: [facility] Address: [address] [place] [address] Result Comment: This test was developed and its performance characteristics determined by [facility]'s Em [facility] Pathology and Laboratory Medicine [place] ([facility]). It has not been cleared or approved by the FDA. [facility] is regulated under CLIA as qualified to perform high-complexity testing. This test is used for clinical purposes. It should not be regarded as investigational or for research. Performed By: #### 5 763-8, COPPER ####[facility] LABCLIA [id number] [address] [address] [place] Comprehensive metabolic 2000 panelon 08-12-2022 Albumin [Mass/Vol] 2.2 g/dL Low 3.9-4.9 [facility] Comment on above: Order Comment: Speci men Type: BLOOD SPECIMENOrdering Facility: [facility] Address: [address] [place], [place] [address] Performed By: #### 2 4323-8, 78492-6, 2776-05, 2132-01 ####[facility] LABCLIA [id number] [place] [address] [place] ALP [Catalytic activity/Vol] 45 U/L Normal 38-113 [facility] Comment on above: Order Comment: Speci men Type: BLOOD SPECIMENOrdering Facility: [facility] Address: [address] [place], [place] [address] Performed By: #### 2 4323-8, 63470-6, 2776-05, 2132-01 ####[facility] LABIA [id number] [place] [address] [place] ALT [Catalytic activity/Vol] 12 U/L Normal 10-54 [facility] Comment on above: Order Comment: Speci men Type: BLOOD SPECIMENOrdering Facility: [facility] Address: [address] [place], [place] [address] Performed By: #### 2 4323-8, 78729-6, 2776-05, 2132-01 ####[facility] LABIA [id number] [place] [id number] [place] Anion gap [Moles/Vol] 11 mmol/L Normal 9-18 [facility] Comment on above: Order Comment: Speci men Type: BLOOD SPECIMENOrdering Facility: [facility] Address: [address] [place], [place] [address] Performed By: #### 2 4323-8, , 2776-05, 2132-01 ####[facility] LABCLIA [id number] [place] [address] [place] AST [Catalytic activity/Vol] 17 U/L Normal 14-40 [facility] Comment on above: Order Comment: Speci men Type: BLOOD SPECIMENOrdering Facility: [facility] Address: [address] [place] [address] Performed By: #### 2 4323-8, , 2776-05, 2132-01 ####[facility] LABIA [id number] [place] [address] [place] Bilirubin [Mass/Vol] 0.2 mg/dL Normal 0.2-1.3 [facility] Comment on above: Order Comment: Speci men Type: BLOOD SPECIMENOrdering Facility: [facility] Address: [address] [place] [address] Performed By: #### 2 4323-8, , 2776-05, 2132-01 ####[facility] LABIA [id number] [place] [address] [place] Calcium [Mass/Vol] 7.5 mg/dL Low 8.5-10.2 [facility] Comment on above: Order Comment: Speci men Type: BLOOD SPECIMENOrdering Facility: [facility] Address: [address] [place], [place] [address] Performed By: #### 2 4323-8, , 2776-05, 2132-01 ####[facility] LABIA [id number] [place] [id number] [place] Chloride [Moles/Vol] 99 mmol/L Normal 97-105 [facility] Comment on above: Order Comment: Speci men Type: BLOOD SPECIMENOrdering Facility: [facility] Address: [address] [place], [place] [address] Performed By: #### 2 432-8, 22200-1, 2776-05, 2132-01 ####[facility] LABCLIA [id number] [place] [address] [place] CO2 [Moles/Vol] 26 mmol/L Normal 22-30 [facility] Comment on above: Order Comment: Speci men Type: BLOOD SPECIMENOrdering Facility: [facility] Address: [address] [place] [address] Performed By: #### 2 4323-8, , 2776-05, 2132-01 ####[facility] LABCLIA [id number] [place] [address] [place] Creatinine [Mass/Vol] 7.39 mg/dL High 0.73-1.22 [facility] Comment on above: Order Comment: Speci men Type: BLOOD SPECIMENOrdering Facility: [facility] Address: [address] [place] [address] Performed By: #### 2 4323-8, , 2776-05, 2132-01 ####[facility] LABCLIA [id number] [place] [address] [place] ESTIMATED GLOMERULAR FILTRATION RATE 8 mL/min/1.73m??? Low >=60 [facility] Comment on above: Order Comment: Speci men Type: BLOOD SPECIMENOrdering Facility: [facility] Address: [address] [place] [address] Result Comment: Lamar mated Glomerular Filtration Rate (eGFR) is calculated using the 2020 CKD-EPI creatinine equation. This equation utilizes serum creatinine, sex, and age as parameters. The creatinine assay has traceable calibration to isotope dilution-mass spectrometry. Refer to KDIGO guidelines for clinical interpretation. In patients with unstable renal function, e.g. those with acute kidney injury, the eGFR may not accurately reflect actual GFR. Performed By: #### 2 4323-8, 27658-2, 2776-05, 2132-01 ####[facility] LABCLIA [id number] [place] [address] [place] Glucose [Mass/Vol] 82 mg/dL Normal 74-99 [facility] Comment on above: Order Comment: Speci men Type: BLOOD SPECIMENOrdering Facility: [facility] Address: [address] [place], [place] [address] Result Comment: The [place] Diabetes Association (ADA) provides guidance for cutoff values for fasting glucose and random glucose. The ADA defines fasting as no caloric intake for at least 8 hours. Fasting plasma glucose results between 100 to 125 mg/dL indicate increased risk for diabetes (prediabetes).Fasting plasma glucose results greater than or equal to 126 mg/dL meet the criteria for diagnosis of diabetes. In the absence of unequivocal hyperglycemia, results should be confirmed by repeat testing. In a patient with classic symptoms of hyperglycemia or hyperglycemic crisis, random plasma glucose results greater than or equal to 200 mg/dL meet the criteria for diagnosis of diabetes.Reference: Standards of Medical Care in Diabetes 2016, [place] [employer] Association. Diabetes Care. 2016.39(Suppl 1). Performed By: #### 2 4323-8, 60567-8, 2776-05, 2132-01 ####[facility] LABIA [id number] [place] [address] [place] Potassium [Moles/Vol] 4.9 mmol/L Normal 3.7-5.1 [facility] Comment on above: Order Comment: Speci men Type: BLOOD SPECIMENOrdering Facility: [facility] Address: [address] [place], [place] [address] Performed By: #### 2 4323-8, 32536-1, 2776-05, 2132-01 ####[facility] LABIA [id number] [place] [address] [place] Protein [Mass/Vol] 4.6 g/dL Low 6.3-8.0 [facility] Comment on above: Order Comment: Speci men Type: BLOOD SPECIMENOrdering Facility: [facility] Address: [address] [place] [address] Performed By: #### 2 4323-8, 54557-2, 2776-05, 2132-01 ####[facility] LABCLIA [id number] [place] [id number] [place] Sodium [Moles/Vol] 136 mmol/L Normal 136-144 [facility] Comment on above: Order Comment: Speci men Type: BLOOD SPECIMENOrdering Facility: [facility] Address: [address] [place] [address] Performed By: #### 2 4323-8, 79437-1, 2776-05, 2132-01 ####[facility] [place] LABCLIA [id number] [place] [address] [place] Urea nitrogen [Mass/Vol] 76 mg/dL High 9-24 [facility] Comment on above: Order Comment: Speci men Type: BLOOD SPECIMENOrdering Facility: [facility] Address: [address] [place] [address] Performed By: #### 2 4323-8, , 2776-05, 2132-01 ####[facility] LABIA [id number] [place] [address] [place] Magnesium SerPl-mCncon 08-12 Magnesium [Mass/Vol] 2.3 mg/dL Normal 1.7-2.3 [facility] Comment on above: Order Comment: Speci men Type: BLOOD SPECIMENOrdering Facility: [facility] Address: [address] [place], [place] [address] Performed By: #### 2 4323-8, 53390-5, 2776-05, 2132-01 ####[facility] LABIA [id number] [place] [address] [place] Methylmalonate SerPl-sCncon 08-12-2022 Methylmalonate [Moles/Vol] 431 nmol/L High 79-376 [facility] Comment on above: Order Comment: Speci men Type: BLOOD SPECIMENOrdering Facility: [facility] Address: [address] [place] [address] Result Comment: This test was developed and its performance characteristics determined by [facility]'s Em [facility] Pathology and Laboratory Medicine [place] ([facility]). It has not been cleared or approved by the FDA. [facility] is regulated under CLIA as qualified to perform high-complexity testing. This test is used for clinical purposes. It should not be regarded as investigational or for research. Performed By: #### 1 3964-2 ####[facility] LABIA [id number] [address] [address] [place] NUTRITIONon 08-12-2022 NUTRITION Normal [facility] Phosphate SerPl-mCncon 08-12 Phosphate [Mass/Vol] 4.3 mg/dL Normal 2.7-4.8 [facility] Comment on above: Order Comment: Speci men Type: BLOOD SPECIMENOrdering Facility: [facility] Address: [address] [place], [place] [address] Performed By: #### 2 4323-8, 44202-7, 2777-1, 2132-9 ####[facility] [id number] [place] [id number] [place] VITAMIN B6/PYRIDOXINon 08-12 VITAMIN B6 43.8 nmol/L Normal 20.0-125.0 [facility] Comment on above: Order Comment: Speci men Type: BLOOD SPECIMENOrdering Facility: [facility] Address: [address] [place] [address] Result Comment: INTE RPRETIVE INFORMATION: Vitamin B6 (Pyridoxal 5-Phosphate)Pyridoxal 5'-phosphate measured in a specimen collected followingan 8-hour or overnight fast accurately indicates vitamin T9uwvbwgotcsq status. Non-fasting specimen concentration reflectsrecent vitamin intake.This test was developed and its performance characteristicsdetermined by [facility]. It has not been cleared orapproved by the [place] Food and Drug Administration. This test wasperformed in a CLIA certified laboratory and is intended forclinical purposes.Performed By: [facility] [place], [place] [address] Director: Chacho Mg MD, PhD Performed By: #### V ITB6 ####[facility] [id number] [place] [address] Vit A SerPl-mCncon 3 Retinol [Mass/Vol] 0.63 mg/L Normal 0.30-1.20 [facility] Comment on above: Order Comment: Speci men Type: BLOOD SPECIMENOrdering Facility: [facility] Address: [address] [place], [place] [address] Result Comment: This test was developed and its performance characteristics determined by [facility]'s [facility] Pathology and Laboratory Medicine [place] ([facility]). It has not been cleared or approved by the FDA. [facility] is regulated under CLIA as qualified to perform high-complexity testing. This test is used for clinical purposes. It should not be regarded as investigational or for research. Performed By: #### 1 823-4, 2923-1 ####[facility] LABIA [id number] [place] [address] [place] Vit B12 SerPl-mCncon 023 Cobalamin (Vitamin B12) [Mass/Vol] 507 pg/mL Normal 232-1245 [facility] Comment on above: Order Comment: Speci men Type: BLOOD SPECIMENOrdering Facility: [facility] Address: [address] [place], [place] [address] Performed By: #### 2 4323-8, 98558-0, 2777-1, 2132-9 ####[facility] [id number] [place] [address] [place] Zinc SerPl-mCncon 08-12-2022 Zinc [Mass/Vol] 57 ug/dL Low 60-120 [facility] Comment on above: Order Comment: Speci men Type: BLOOD SPECIMENOrdering Facility: [facility] Address: [address] [place] [address] Result Comment: This test was developed and its performance characteristics determined by [facility]'s Em [facility] Pathology and Laboratory Medicine [place] ([facility]). It has not been cleared or approved by the FDA. -[facility] is regulated under CLIA as qualified to perform high-complexity testing. This test is used for clinical purposes. It should not be regarded as investigational or for research. Performed By: #### 5 763-8, COPPER ####[facility] LABCLIA [id number] [place] [address] [place] CBC W Auto Differential pane l (Bld)on 08-11-2022 Basophils (Bld) [#/Vol] 0.04 10*3/uL Normal <0.11 [facility] Comment on above: Order Comment: Speci men Type: BLOOD SPECIMENOrdering Facility: [facility] Address: [address] [place] [address] Performed By: #### 5 7021-8 ####[facility] LABIA [id number] [place] [address] [place] Basophils/100 WBC (Bld) 1.0 % Normal [facility] Comment on above: Order Comment: Speci men Type: BLOOD SPECIMENOrdering Facility: [facility] Address: [address] [place] [address] Performed By: #### 5 7021-8 ####[facility] LABCLIA [id number] [place] [address] [place] Differential cell count method Nom (Bld) Auto Normal [facility] Comment on above: Order Comment: Speci men Type: BLOOD SPECIMENOrdering Facility: [facility] Address: [address] [place] [address] Performed By: #### 5 7021-8 ####[facility] LABCLIA [id number] [place] [address] [place] Eosinophils (Bld) [#/Vol] 0.29 10*3/uL Normal <0.46 [facility] Comment on above: Order Comment: Speci men Type: BLOOD SPECIMENOrdering Facility: [facility] Address: [address] [place] [address] Performed By: #### 5 7021-8 ####[facility] LABCLIA [id number] [place] [address] [place] Eosinophils/100 WBC (Bld) 7.3 % Normal [facility] Comment on above: Order Comment: Speci men Type: BLOOD SPECIMENOrdering Facility: [facility] Address: [address] Performed By: #### 5 7021-8 ####[facility] LABIA [id number] [place] [address] [place] Erythrocyte distribution width (RBC) [Ratio] 15.4 % High 11.5-15.0 [facility] Comment on above: Order Comment: Speci men Type: BLOOD SPECIMENOrdering Facility: [facility] Address: [address] Performed By: #### 5 7021-8 ####[facility] LABIA [id number] [place] [address] [place] Hematocrit (Bld) [Volume fraction] 24.5 % Low 39.0-51.0 [facility] Comment on above: Order Comment: Speci men Type: BLOOD SPECIMENOrdering Facility: [facility] Address: [address] Performed By: #### 5 7021-8 ####[facility] LABIA [id number] [place] [address] [place] Hemoglobin (Bld) [Mass/Vol] 7.8 g/dL Low 13.0-17.0 [facility] Comment on above: Order Comment: Speci men Type: BLOOD SPECIMENOrdering Facility: [facility] Address: [address] Performed By: #### 5 7021-8 ####[facility] LABCLIA [id number] [place] [address] [place] Immature granulocytes (Bld) [#/Vol] 0.05 10*3/uL Normal <0.10 [facility] Comment on above: Order Comment: Speci men Type: BLOOD SPECIMENOrdering Facility: [facility] Address: [address] [place] [address] Performed By: #### 5 7021-8 ####[facility] LABCLIA [id number] [address] [place] Immature granulocytes/100 WBC (Bld) 1.3 % Normal [facility] Comment on above: Order Comment: Speci men Type: BLOOD SPECIMENOrdering Facility: [facility] Address: [address] [place] [address] Performed By: #### 5 7021-8 ####[facility] LABCLIA [id number] [place] [address] [place] Lymphocytes (Bld) [#/Vol] 1.08 10*3/uL Normal 1.00-4.00 [facility] Comment on above: Order Comment: Speci men Type: BLOOD SPECIMENOrdering Facility: [facility] Address: [address] [place] [address] Performed By: #### 5 7021-8 ####[facility] LABCLIA [id number] [address] [place] Lymphocytes/100 WBC (Bld) 27.1 % Normal [facility] Comment on above: Order Comment: Speci men Type: BLOOD SPECIMENOrdering Facility: [facility] Address: [address] [place], [place] [address] Performed By: #### 5 7021-8 ####[facility] LABCLIA [id number] [place] [address] [place] MCH (RBC) [Entitic mass] 29.2 pg Normal 26.0-34.0 [facility] Comment on above: Order Comment: Speci men Type: BLOOD SPECIMENOrdering Facility: [facility] Address: [address] [place] [address] Performed By: #### 5 7021-8 ####[facility] LABCLIA [id number] [place] [address] [place] MCHC (RBC) [Mass/Vol] 31.8 g/dL Normal 30.5-36.0 [facility] Comment on above: Order Comment: Speci men Type: BLOOD SPECIMENOrdering Facility: [facility] Address: [address] [place] [address] Performed By: #### 5 7021-8 ####[facility] LABCLIA [id number] [place] [address] [place] MCV (RBC) [Entitic vol] 91.8 fL Normal 80.0-100.0 [facility] Comment on above: Order Comment: Speci men Type: BLOOD SPECIMENOrdering Facility: [facility] Address: [address] [place], [place] [address] Performed By: #### 5 7021-8 ####[facility] LABIA [id number] [place] [address] [place] Monocytes (Bld) [#/Vol] 0.51 10*3/uL Normal <0.87 [facility] Comment on above: Order Comment: Speci men Type: BLOOD SPECIMENOrdering Facility: [facility] Address: [address] [place], [place] [address] Performed By: #### 5 7021-8 ####[facility] LABCLIA [id number] [address] [place] Monocytes/100 WBC (Bld) 12.8 % Normal [facility] Comment on above: Order Comment: Speci men Type: BLOOD SPECIMENOrdering Facility: [facility] Address: [address] [place], [place] [address] Performed By: #### 5 7021-8 ####[facility] LABCLIA [id number] [place] [address] [place] Neutrophils (Bld) [#/Vol] 2.01 10*3/uL Normal 1.45-7.50 [facility] Comment on above: Order Comment: Speci men Type: BLOOD SPECIMENOrdering Facility: [facility] Address: [address] [place] [address] Performed By: #### 5 7021-8 ####[facility] LABCLIA [id number] [place] [address] [place] Neutrophils/100 WBC (Bld) 50.5 % Normal [facility] Comment on above: Order Comment: Speci men Type: BLOOD SPECIMENOrdering Facility: [facility] Address: [address] [place], [place] [address] Performed By: #### 5 7021-8 ####[facility] LABCLIA [id number] [place] [address] [place] Nucleated RBC (Bld) [#/Vol] 10*3/uL Normal <0.01 [facility] Comment on above: Order Comment: Speci men Type: BLOOD SPECIMENOrdering Facility: [facility] Address: [address] [place] [address] Performed By: #### 5 7021-8 ####[facility] LABCLIA [id number] [place] [address] [place] Nucleated RBC/100 WBC (Bld) [Ratio] 0.0 /100 WBC Normal [facility] Comment on above: Order Comment: Speci men Type: BLOOD SPECIMENOrdering Facility: [facility] Address: [address] [place] [address] Performed By: #### 5 7021-8 ####[facility] LABCLIA [id number] [address] [place] [address] [place] Platelet mean volume (Bld) [Entitic vol] 9.6 fL Normal 9.0-12.7 [facility] Comment on above: Order Comment: Speci men Type: BLOOD SPECIMENOrdering Facility: [facility] Address: [address] [place], [place] [address] Performed By: #### 5 7021-8 ####[facility] LABCLIA [id number] [place] [address] [place] Platelets (Bld) [#/Vol] 170 10*3/uL Normal 150-400 [facility] Comment on above: Order Comment: Speci men Type: BLOOD SPECIMENOrdering Facility: [facility] Address: [address] [place], [place] [address] Performed By: #### 5 7021-8 ####[facility] LABCLIA [id number] [place] [address] [place] RBC (Bld) [#/Vol] 2.67 10*6/uL Low 4.20-6.00 [facility] Comment on above: Order Comment: Speci men Type: BLOOD SPECIMENOrdering Facility: [facility] [facility] Address: [address] [place], [place] [address] Performed By: #### 5 7021-8 ####[facility] [place] LABCLIA [id number] [place] [address] [place] WBC (Bld) [#/Vol] 3.98 10*3/uL Normal 3.70-11.00 [facility] Comment on above: Order Comment: Speci men Type: BLOOD SPECIMENOrdering Facility: [facility] Address: [address] [place], [place] [address] Performed By: #### 5 7021-8 ####[facility] [place] LABCLIA [id number] [place] [address] [place] [facility] CRP [Mass/Vol] 0.7 mg/dL Normal <0.9 [facility] Comment on above: Order Comment: Speci men Type: BLOOD SPECIMENOrdering Facility: [facility] Address: [address] [place] [address] Performed By: #### 2 4328, 1987-09, , 2776-05 ####[facility] [place] LABCLIA [id number] [place] [address] [place] Comprehensive metabolic 2000 panelon 08-11-2022 Albumin [Mass/Vol] 2.3 g/dL Low 3.9-4.9 [facility] Comment on above: Order Comment: Speci men Type: BLOOD SPECIMENOrdering Facility: [facility] Address: [address] [place] [address] Performed By: #### 2 4328, 1987-09, , 2776-05 ####[facility] [place] LABCLIA [id number] [place] [address] [place] ALP [Catalytic activity/Vol] 37 U/L Low 38-113 [facility] Comment on above: Order Comment: Speci men Type: BLOOD SPECIMENOrdering Facility: [facility] Address: [address] [place] [address] Performed By: #### 2 43238, 1987-09, , 2776-05 ####[facility] [place] LABCLIA [id number] [place] [address] [place] ALT [Catalytic activity/Vol] 13 U/L Normal 10-54 [facility] Comment on above: Order Comment: Speci men Type: BLOOD SPECIMENOrdering Facility: [facility] Address: [address] [place], [place] [address] Performed By: #### 2 4328, 1987-09, , 2776-05 ####[facility] [place] LABCLIA [id number] [place] [id number] [place] Anion gap [Moles/Vol] 9 mmol/L Normal 9-18 [facility] Comment on above: Order Comment: Speci men Type: BLOOD SPECIMENOrdering Facility: [facility] Address: [address] [place], [place] [address] Performed By: #### 2 4322-12, 1987-09, , 2776-05 ####[facility] [place] LABCLIA [id number] [place] [address] [place] AST [Catalytic activity/Vol] 15 U/L Normal 14-40 [facility] Comment on above: Order Comment: Speci men Type: BLOOD SPECIMENOrdering Facility: [facility] Address: [address] [place] [address] Performed By: #### 2 4322-12, 1987-09, , 2776-05 ####[facility] [place] LABCLIA [id number] [place] [address] [place] Bilirubin [Mass/Vol] 0.3 mg/dL Normal 0.2-1.3 [facility] Comment on above: Order Comment: Speci men Type: BLOOD SPECIMENOrdering Facility: [facility] Address: [address] [place] [address] Performed By: #### 2 4322-12, 1987-09, , 2776-05 ####[facility] [place] LABCLIA [id number] [place] [address] [place] Calcium [Mass/Vol] 7.7 mg/dL Low 8.5-10.2 [facility] Comment on above: Order Comment: Speci men Type: BLOOD SPECIMENOrdering Facility: [facility] Address: [address] [place], [place] [address] Performed By: #### 2 4322-12, 1987-09, , 2776-05 ####[facility] [place] LABCLIA [id number] [place] [id number] [place] Chloride [Moles/Vol] 101 mmol/L Normal 97-105 [facility] Comment on above: Order Comment: Speci men Type: BLOOD SPECIMENOrdering Facility: [facility] Address: [address] [place], [place] [address] Performed By: #### 2 4328, 1987-09, , 2776-05 ####[facility] [place] LABCLIA [id number] [place] [address] [place] CO2 [Moles/Vol] 27 mmol/L Normal 22-30 [facility] Comment on above: Order Comment: Speci men Type: BLOOD SPECIMENOrdering Facility: [facility] Address: [address] [place] [address] Performed By: #### 2 432-8, 1987-09, , 2776-05 ####[facility] [place] LABIA [id number] [place] [address] [place] Creatinine [Mass/Vol] 7.36 mg/dL High 0.73-1.22 [facility] Comment on above: Order Comment: Speci men Type: BLOOD SPECIMENOrdering Facility: [facility] Address: [address] [place] [address] Performed By: #### 2 4323-8, 1987-09, , 2776-05 ####[facility] [place] LABIA [id number] [place] [address] [place] ESTIMATED GLOMERULAR FILTRATION RATE 8 mL/min/1.73m??? Low >=60 [facility] Comment on above: Order Comment: Speci men Type: BLOOD SPECIMENOrdering Facility: [facility] Address: [address] [place], [place] [address] Result Comment: Lamar mated Glomerular Filtration Rate (eGFR) is calculated using the 2020 CKD-EPI creatinine equation. This equation utilizes serum creatinine, sex, and age as parameters. The creatinine assay has traceable calibration to isotope dilution-mass spectrometry. Refer to KDIGO guidelines for clinical interpretation. In patients with unstable renal function, e.g. those with acute kidney injury, the eGFR may not accurately reflect actual GFR. Performed By: #### 2 4322-12, 1987-09, , 2776-05 ####[facility] [place] LABCLIA [id number] [address] [address] [place] Glucose [Mass/Vol] 99 mg/dL Normal 74-99 [facility] Comment on above: Order Comment: Chayito hudson Type: BLOOD SPECIMENOrdering Facility: [facility] Address: [address] [place] [address] Result Comment: The [place] Diabetes Association (ADA) provides guidance for cutoff values for fasting glucose and random glucose. The ADA defines fasting as no caloric intake for at least 8 hours. Fasting plasma glucose results between 100 to 125 mg/dL indicate increased risk for diabetes (prediabetes).Fasting plasma glucose results greater than or equal to 126 mg/dL meet the criteria for diagnosis of diabetes. In the absence of unequivocal hyperglycemia, results should be confirmed by repeat testing. In a patient with classic symptoms of hyperglycemia or hyperglycemic crisis, random plasma glucose results greater than or equal to 200 mg/dL meet the criteria for diagnosis of diabetes.Reference: Standards of Medical Care in Diabetes 2016, [place] [employer]. Diabetes Care. 2016.39(Suppl 1). Performed By: #### 2 4322-12, 1987-09, , 2776-05 ####[facility] [place] LABCLIA [id number] [facility] [address] [address] [place] Potassium [Moles/Vol] 5.1 mmol/L Normal 3.7-5.1 [facility] Comment on above: Order Comment: Chayito hudson Type: BLOOD SPECIMENOrdering Facility: [facility] Address: [address] [place] [address] Performed By: #### 2 4322-12, 1987-09, , 2776-05 ####[facility] [place] LABCLIA [id number] [facility] [address] [address] [place] Protein [Mass/Vol] 4.1 g/dL Low 6.3-8.0 [facility] Comment on above: Order Comment: Speci men Type: BLOOD SPECIMENOrdering Facility: [facility] Address: [address] [place] [address] Performed By: #### 2 8, 1987-09, , 2776-05 ####[facility] [place] LABCLIA [id number] [place] [address] [place] Sodium [Moles/Vol] 137 mmol/L Normal 136-144 [facility] Comment on above: Order Comment: Speci men Type: BLOOD SPECIMENOrdering Facility: [facility] Address: [address] [place], [place] [address] Performed By: #### 2 4322-12, 1987-09, , 2776-05 ####[facility] [place] LABCLIA [id number] [place] [address] [place] Urea nitrogen [Mass/Vol] 74 mg/dL High 9-24 [facility] Comment on above: Order Comment: Speci men Type: BLOOD SPECIMENOrdering Facility: [facility] Address: [address] [place], [place] [address] Performed By: #### 2 8, 1987-09, , 2776-05 ####[facility] [place] LABCLIA [id number] [place] [id number] [place] Magnesium SerPl-mCncon 08-11 Magnesium [Mass/Vol] 2.1 mg/dL Normal 1.7-2.3 [facility] Comment on above: Order Comment: Speci men Type: BLOOD SPECIMENOrdering Facility: [facility] Address: [address] [place] [address] Performed By: #### 2 4328, 1987-09, , 2776-05 ####[facility] [place] LABCLIA [id number] [address] [place] Phosphate SerPl-mCncon 08-11 Phosphate [Mass/Vol] 4.3 mg/dL Normal 2.7-4.8 [facility] Comment on above: Order Comment: Speci men Type: BLOOD SPECIMENOrdering Facility: [facility] Address: [address] [place] [address] Performed By: #### 2 4323-8, 1987-5, 74206-6, 2777-1 ####[facility] LABCLIA [id number] [place] [address] [place] THERAPY NTon 08-11-2022 THERAPY NT Normal [facility] CBC W Auto Differential pane l (Bld)on 08-10-2022 Basophils (Bld) [#/Vol] 0.03 10*3/uL Normal <0.11 [facility] Comment on above: Order Comment: Speci men Type: BLOOD SPECIMENOrdering Facility: [facility] Address: [address] [place] [address] Performed By: #### 5 7021-8 ####[facility] [place] LABCLIA [id number] [address] Basophils/100 WBC (Bld) 0.7 % Normal [facility] Comment on above: Order Comment: Speci men Type: BLOOD SPECIMENOrdering Facility: [facility] Address: [address] [place] [address] Performed By: #### 5 7021-8 ####[facility] [place] LABCLIA [id number] [address] [place] Differential cell count method Nom (Bld) Auto Normal [facility] Comment on above: Order Comment: Speci men Type: BLOOD SPECIMENOrdering Facility: [facility] Address: [address] [place] [address] Performed By: #### 5 7021-8 ####[facility] [place] LABCLIA [id number] [address] [place] Eosinophils (Bld) [#/Vol] 0.28 10*3/uL Normal <0.46 [facility] Comment on above: Order Comment: Speci men Type: BLOOD SPECIMENOrdering Facility: [facility] Address: [address] [place] [address] Performed By: #### 5 7021-8 ####[facility] [place] LABCLIA [id number] [place] [address] [place] Eosinophils/100 WBC (Bld) 6.2 % Normal [facility] Comment on above: Order Comment: Speci men Type: BLOOD SPECIMENOrdering Facility: [facility] Address: [address] [place] [address] Performed By: #### 5 7021-8 ####[facility] [place] LABIA [id number] [address] [place] Erythrocyte distribution width (RBC) [Ratio] 15.6 % High 11.5-15.0 [facility] Comment on above: Order Comment: Speci men Type: BLOOD SPECIMENOrdering Facility: [facility] Address: [address] [place] [address] Performed By: #### 5 7021-8 ####[facility] [place] LABCLIA [id number] [address] [place] Hematocrit (Bld) [Volume fraction] 24.9 % Low 39.0-51.0 [facility] Comment on above: Order Comment: Speci men Type: BLOOD SPECIMENOrdering Facility: [facility] Address: [address] [place], [place] [address] Performed By: #### 5 7021-8 ####[facility] [place] LABCLIA [id number] [place] [address] [place] Hemoglobin (Bld) [Mass/Vol] 7.9 g/dL Low 13.0-17.0 [facility] Comment on above: Order Comment: Speci men Type: BLOOD SPECIMENOrdering Facility: [facility] Address: [address] Performed By: #### 5 7021-8 ####[facility] [place] LABCLIA [id number] [place] [address] [place] Immature granulocytes (Bld) [#/Vol] 0.05 10*3/uL Normal <0.10 [facility] Comment on above: Order Comment: Speci men Type: BLOOD SPECIMENOrdering Facility: [facility] Address: [address] Performed By: #### 5 7021-8 ####[facility] [place] LABCLIA [id number] [place] [address] [place] Immature granulocytes/100 WBC (Bld) 1.1 % Normal [facility] Comment on above: Order Comment: Speci men Type: BLOOD SPECIMENOrdering Facility: [facility] Address: [address] Performed By: #### 5 7021-8 ####[facility] [place] LABCLIA [id number] [place] [address] [place] Lymphocytes (Bld) [#/Vol] 1.01 10*3/uL Normal 1.00-4.00 [facility] Comment on above: Order Comment: Speci men Type: BLOOD SPECIMENOrdering Facility: [facility] Address: [address] Performed By: #### 5 7021-8 ####[facility] [place] LABCLIA [id number] [place] [address] [place] Lymphocytes/100 WBC (Bld) 22.3 % Normal [facility] Comment on above: Order Comment: Speci men Type: BLOOD SPECIMENOrdering Facility: [facility] Address: [address] Performed By: #### 5 7021-8 ####[facility] [place] LABCLIA [id number] [place] [address] [place] MCH (RBC) [Entitic mass] 28.9 pg Normal 26.0-34.0 [facility] Comment on above: Order Comment: Speci men Type: BLOOD SPECIMENOrdering Facility: [facility] Address: [address] [place] [address] Performed By: #### 5 7021-8 ####[facility] [place] [facility] [id number] [address] STATES OF [facility] MCHC (RBC) [Mass/Vol] 31.7 g/dL Normal 30.5-36.0 [facility] Comment on above: Order Comment: Speci men Type: BLOOD SPECIMENOrdering Facility: [facility] Address: [address] [place] [address] Performed By: #### 5 7021-8 ####[facility] [id number] [address] [place] MCV (RBC) [Entitic vol] 91.2 fL Normal 80.0-100.0 [facility] Comment on above: Order Comment: Speci men Type: BLOOD SPECIMENOrdering Facility: [facility] Address: [address] [place] [address] Performed By: #### 5 7021-8 ####[facility] [id number] [place] [address] [place] Monocytes (Bld) [#/Vol] 0.57 10*3/uL Normal <0.87 [facility] Comment on above: Order Comment: Speci men Type: BLOOD SPECIMENOrdering Facility: [facility] Address: [address] [place], [place] [address] Performed By: #### 5 7021-8 ####[facility] [place] [facility]BR[facility] [id number] [address] [place] Monocytes/100 WBC (Bld) 12.6 % Normal [facility] Comment on above: Order Comment: Speci men Type: BLOOD SPECIMENOrdering Facility: [facility] Address: [address] Performed By: #### 5 7021-8 ####[facility] [place] LABCLIA [id number] [place] [address] [place] Neutrophils (Bld) [#/Vol] 2.59 10*3/uL Normal 1.45-7.50 [facility] Comment on above: Order Comment: Speci men Type: BLOOD SPECIMENOrdering Facility: [facility] Address: [address] [place] [address] Performed By: #### 5 7021-8 ####[facility] [place] LABCLIA [id number] [place] [address] [place] Neutrophils/100 WBC (Bld) 57.1 % Normal [facility] Comment on above: Order Comment: Speci men Type: BLOOD SPECIMENOrdering Facility: [facility] Address: [address] Performed By: #### 5 7021-8 ####[facility] LABCLIA [id number] [place] [address] [place] Nucleated RBC (Bld) [#/Vol] 10*3/uL Normal <0.01 [facility] Comment on above: Order Comment: Speci men Type: BLOOD SPECIMENOrdering Facility: [facility] Address: [address] Performed By: #### 5 7021-8 ####[facility] [place] LABCLIA [id number] [place] [address] [place] Nucleated RBC/100 WBC (Bld) [Ratio] 0.0 /100 WBC Normal [facility] Comment on above: Order Comment: Speci men Type: BLOOD SPECIMENOrdering Facility: [facility] Address: [address] Performed By: #### 5 7021-8 ####[facility] LABIA [id number] [place] [address] [place] Platelet mean volume (Bld) [Entitic vol] 9.8 fL Normal 9.0-12.7 [facility] Comment on above: Order Comment: Speci men Type: BLOOD SPECIMENOrdering Facility: [facility] Address: [address] [place], [place] [address] Performed By: #### 5 7021-8 ####[facility] LABIA [id number] [place] [address] [place] Platelets (Bld) [#/Vol] 172 10*3/uL Normal 150-400 [facility] Comment on above: Order Comment: Speci men Type: BLOOD SPECIMENOrdering Facility: [facility] Address: [address] [place], [place] [address] Performed By: #### 5 7021-8 ####[facility] LABIA [id number] [place] [address] [place] RBC (Bld) [#/Vol] 2.73 10*6/uL Low 4.20-6.00 [facility] Comment on above: Order Comment: Speci men Type: BLOOD SPECIMENOrdering Facility: [facility] Address: [address] [place], [place] [address] Performed By: #### 5 7021-8 ####[facility] LABIA [id number] [place] [address] [place] WBC (Bld) [#/Vol] 4.53 10*3/uL Normal 3.70-11.00 [facility] Comment on above: Order Comment: Speci men Type: BLOOD SPECIMENOrdering Facility: [facility] Address: [address] [place], [place] [address] Performed By: #### 5 7021-8 ####[facility] LABIA [id number] [place] [address] [place] Comprehensive metabolic 2000 panelon 08-10-2022 Albumin [Mass/Vol] 2.1 g/dL Low 3.9-4.9 [facility] Comment on above: Order Comment: Speci men Type: BLOOD SPECIMENOrdering Facility: [facility] Address: [address] [place] [address] Performed By: #### 2 4323-8, 50795-9, 2776- ####[facility] LABCLIA [id number] [place] [address] [place] ALP [Catalytic activity/Vol] 32 U/L Low 38-113 [facility] Comment on above: Order Comment: Speci men Type: BLOOD SPECIMENOrdering Facility: [facility] Address: [address] [place] [address] Performed By: #### 2 4323-8, , 2776- ####[facility] LABCLIA [id number] [address] [place] ALT [Catalytic activity/Vol] 13 U/L Normal 10-54 [facility] Comment on above: Order Comment: Speci men Type: BLOOD SPECIMENOrdering Facility: [facility] Address: [address] [place] [address] Performed By: #### 2 4323-8, , 2776- ####[facility] LABCLIA [id number] [place] [address] [place] Anion gap [Moles/Vol] 8 mmol/L Low 9-18 [facility] Comment on above: Order Comment: Speci men Type: BLOOD SPECIMENOrdering Facility: [facility] Address: [address] [place], [place] [address] Performed By: #### 2 4323-8, 58839-1, 2776- ####[facility] LABCLIA [id number] [place] [address] [place] AST [Catalytic activity/Vol] 15 U/L Normal 14-40 [facility] Comment on above: Order Comment: Speci men Type: BLOOD SPECIMENOrdering Facility: [facility] Address: [address] [place], [place] [address] Performed By: #### 2 4323-8, 76304-0, 2776-05 ####[facility] LABCLIA [id number] [place] [address] [place] Bilirubin [Mass/Vol] 0.2 mg/dL Normal 0.2-1.3 [facility] Comment on above: Order Comment: Speci men Type: BLOOD SPECIMENOrdering Facility: [facility] Address: [address] [place] [address] Performed By: #### 2 4323-8, , 2776-05 ####[facility] LABCLIA [id number] [place] [address] [place] Calcium [Mass/Vol] 7.9 mg/dL Low 8.5-10.2 [facility] Comment on above: Order Comment: Speci men Type: BLOOD SPECIMENOrdering Facility: [facility] Address: [address] [place], [place] [address] Performed By: #### 2 4323-8, , 2776-05 ####[facility] LABCLIA [id number] [place] [address] [place] Chloride [Moles/Vol] 107 mmol/L High 97-105 [facility] Comment on above: Order Comment: Speci men Type: BLOOD SPECIMENOrdering Facility: [facility] Address: [address] [place], [place] [address] Performed By: #### 2 4323-8, , 2776-05 ####[facility] [place] LABCLIA [id number] [place] [address] [place] CO2 [Moles/Vol] 27 mmol/L Normal 22-30 [facility] Comment on above: Order Comment: Speci men Type: BLOOD SPECIMENOrdering Facility: [facility] Address: [place] [address] Performed By: #### 2 4323-8, , 2776-05 ####[facility] [place] LABCLIA [id number] [place] [address] [place] Creatinine [Mass/Vol] 7.45 mg/dL High 0.73-1.22 [facility] Comment on above: Order Comment: Speci men Type: BLOOD SPECIMENOrdering Facility: [facility] Address: [place] [place] [address] Performed By: #### 2 4323-8, , 2776-05 ####[facility] [facility] LABCLIA [id number] [address] STATES OF [facility] ESTIMATED GLOMERULAR FILTRATION RATE 8 mL/min/1.73m??? Low >=60 [facility] Comment on above: Order Comment: Speci men Type: BLOOD SPECIMENOrdering Facility: [facility] Address: [place] [place] [address] Result Comment: Lamar mated Glomerular Filtration Rate (eGFR) is calculated using the 2020 CKD-EPI creatinine equation. This equation utilizes serum creatinine, sex, and age as parameters. The creatinine assay has traceable calibration to isotope dilution-mass spectrometry. Refer to KDIGO guidelines for clinical interpretation. In patients with unstable renal function, e.g. those with acute kidney injury, the eGFR may not accurately reflect actual GFR. Performed By: #### 2 4323-8, , 2776-05 ####[facility] LABCLIA [id number] [place] [address] [place] Glucose [Mass/Vol] 94 mg/dL Normal 74-99 [facility] Comment on above: Order Comment: Speci men Type: BLOOD SPECIMENOrdering Facility: [facility] Address: [address], [place] [address] Result Comment: The [place] Diabetes Association (ADA) provides guidance for cutoff values for fasting glucose and random glucose. The ADA defines fasting as no caloric intake for at least 8 hours. Fasting plasma glucose results between 100 to 125 mg/dL indicate increased risk for diabetes (prediabetes).Fasting plasma glucose results greater than or equal to 126 mg/dL meet the criteria for diagnosis of diabetes. In the absence of unequivocal hyperglycemia, results should be confirmed by repeat testing. In a patient with classic symptoms of hyperglycemia or hyperglycemic crisis, random plasma glucose results greater than or equal to 200 mg/dL meet the criteria for diagnosis of diabetes.Reference: Standards of Medical Care in Diabetes 2016, [place] Diabetes Association. Diabetes Care. 2016.39(Suppl 1). Performed By: #### 2 4323-8, , 2776-05 ####[facility] LABCLIA [id number] [place] [address] [place] Potassium [Moles/Vol] 5.1 mmol/L Normal 3.7-5.1 [facility] Comment on above: Order Comment: Speci men Type: BLOOD SPECIMENOrdering Facility: [facility] Address: [address] [id number] Performed By: #### 2 4323-8, , 2776-05 ####[facility] LABCLIA [id number] [place] [address] [place] Protein [Mass/Vol] 4.2 g/dL Low 6.3-8.0 [facility] Comment on above: Order Comment: Speci men Type: BLOOD SPECIMENOrdering Facility: [facility] Address: [address] [id number] Performed By: #### 2 4323-8, , 2776-05 ####[facility] LABCLIA [id number] [place] [address] [place] Sodium [Moles/Vol] 142 mmol/L Normal 136-144 [facility] Comment on above: Order Comment: Speci men Type: BLOOD SPECIMENOrdering Facility: [facility] Address: [address] [place] [address] Performed By: #### 2 4323-8, , 2776-05 ####[facility] LABCLIA [id number] [place] [address] [place] Urea nitrogen [Mass/Vol] 81 mg/dL High 9-24 [facility] Comment on above: Order Comment: Speci men Type: BLOOD SPECIMENOrdering Facility: [facility] Address: [address] [place] [address] Performed By: #### 2 4323-8, , 2776-05 ####[facility] LABCLIA [id number] [place] [address] [place] Magnesium SerPl-mCncon 08-10 Magnesium [Mass/Vol] 2.2 mg/dL Normal 1.7-2.3 [facility] Comment on above: Order Comment: Speci men Type: BLOOD SPECIMENOrdering Facility: [facility] Address: [address] [place] [address] Performed By: #### 2 4323-8, , 2776-05 ####[facility] LABCLIA [id number] [place] [address] [place] Phosphate SerPl-mCncon 08-10 Phosphate [Mass/Vol] 4.1 mg/dL Normal 2.7-4.8 [facility] Comment on above: Order Comment: Speci men Type: BLOOD SPECIMENOrdering Facility: [facility] Address: [address] [place], [place] [address] Performed By: #### 2 4323-8, , 2776-05 ####[facility] LABCLIA [id number] [place] [address] [place] TYPE + SCREENon 08-10-2022 ABO B Normal [facility] Comment on above: Order Comment: Speci men Type: BLOOD SPECIMENOrdering Facility: [facility] Address: [address] [place] [address] Performed By: #### T SCR ####[facility] BLOOD BANKCLIA [id number] [address] HISTORICAL AB SCR STATUS Negative Normal [facility] Comment on above: Order Comment: Speci men Type: BLOOD SPECIMENOrdering Facility: [facility] Address: [address] [place] [address] Performed By: #### T SCR ####[facility] BLOOD BANKCLIA [id number] [address] [place] Rh Nom (Bld) Positive Normal [facility] Comment on above: Order Comment: Speci men Type: BLOOD SPECIMENOrdering Facility: [facility] Address: [address] [place] [address] Performed By: #### T SCR ####[facility] BLOOD BANKCLIA [id number] [address] TYPE AND SCREEN EXPIRATION 08/13/2022 23:59 Normal [facility] Comment on above: Order Comment: Speci men Type: BLOOD SPECIMENOrdering Facility: [facility] Address: [address] [place] [address] Performed By: #### T SCR ####[facility] BLOOD BANKCLIA [id number] [address] [place] CBC W Auto Differential pane l (Bld)on 08-09-2022 Basophils (Bld) [#/Vol] 0.03 10*3/uL Normal <0.11 [facility] Comment on above: Order Comment: Speci men Type: BLOOD SPECIMENOrdering Facility: [facility] Address: [address] [place] [address] Performed By: #### 5 7021-8 ####[facility] LABCLIA [id number] [place] Basophils/100 WBC (Bld) 0.6 % Normal [facility] Comment on above: Order Comment: Speci men Type: BLOOD SPECIMENOrdering Facility: [facility] Address: [address] [place] [address] Performed By: #### 5 7021-8 ####[facility] LABCLIA [id number] [place] [address] [place] Differential cell count method Nom (Bld) Auto Normal [facility] Comment on above: Order Comment: Speci men Type: BLOOD SPECIMENOrdering Facility: [facility] Address: [address] [place], [place] [address] Performed By: #### 5 7021-8 ####[facility] LABCLIA [id number] [place] [address] [place] Eosinophils (Bld) [#/Vol] 0.26 10*3/uL Normal <0.46 [facility] Comment on above: Order Comment: Speci men Type: BLOOD SPECIMENOrdering Facility: [facility] Address: [address] [place], [place] [address] Performed By: #### 5 7021-8 ####[facility] LABCLIA [id number] [address] [place] Eosinophils/100 WBC (Bld) 5.1 % Normal [facility] Comment on above: Order Comment: Speci men Type: BLOOD SPECIMENOrdering Facility: [facility] Address: [address] Performed By: #### 5 7021-8 ####[facility] LABCLIA [id number] [place] [address] [place] Erythrocyte distribution width (RBC) [Ratio] 15.9 % High 11.5-15.0 [facility] Comment on above: Order Comment: Speci men Type: BLOOD SPECIMENOrdering Facility: [facility] Address: [address] [place], [place] [address] Performed By: #### 5 7021-8 ####[facility] LABIA [id number] [place] [address] [place] Hematocrit (Bld) [Volume fraction] 24.8 % Low 39.0-51.0 [facility] Comment on above: Order Comment: Speci men Type: BLOOD SPECIMENOrdering Facility: [facility] Address: [address] Performed By: #### 5 7021-8 ####[facility] LABIA [id number] [place] [address] [place] Hemoglobin (Bld) [Mass/Vol] 8.0 g/dL Low 13.0-17.0 [facility] Comment on above: Order Comment: Speci men Type: BLOOD SPECIMENOrdering Facility: [facility] Address: [address] Performed By: #### 5 7021-8 ####[facility] LABIA [id number] [place] [address] [place] Immature granulocytes (Bld) [#/Vol] 0.07 10*3/uL Normal <0.10 [facility] Comment on above: Order Comment: Speci men Type: BLOOD SPECIMENOrdering Facility: [facility] Address: [address] Performed By: #### 5 7021-8 ####[facility] LABIA [id number] [place] [address] [place] Immature granulocytes/100 WBC (Bld) 1.4 % Normal [facility] Comment on above: Order Comment: Speci men Type: BLOOD SPECIMENOrdering Facility: [facility] Address: [address] Performed By: #### 5 7021-8 ####[facility] LABIA [id number] [place] Lymphocytes (Bld) [#/Vol] 0.94 10*3/uL Low 1.00-4.00 [facility] Comment on above: Order Comment: Speci men Type: BLOOD SPECIMENOrdering Facility: [facility] Address: [address] [place] [address] Performed By: #### 5 7021-8 ####[facility] LABCLIA [id number] [address] OF [facility] Lymphocytes/100 WBC (Bld) 18.4 % Normal [facility] Comment on above: Order Comment: Speci men Type: BLOOD SPECIMENOrdering Facility: [facility] Address: [address] [place] [address] Performed By: #### 5 7021-8 ####[facility] LABIA [id number] [address] [place] MCH (RBC) [Entitic mass] 29.2 pg Normal 26.0-34.0 [facility] Comment on above: Order Comment: Speci men Type: BLOOD SPECIMENOrdering Facility: [facility] Address: [address] [place], [place] [address] Performed By: #### 5 7021-8 ####[facility] LABIA [id number] [address] [place] MCHC (RBC) [Mass/Vol] 32.3 g/dL Normal 30.5-36.0 [facility] Comment on above: Order Comment: Speci men Type: BLOOD SPECIMENOrdering Facility: [facility] Address: [address] [place], [place] [address] Performed By: #### 5 7021-8 ####[facility] LABCLIA [id number] [address] [place] MCV (RBC) [Entitic vol] 90.5 fL Normal 80.0-100.0 [facility] Comment on above: Order Comment: Speci men Type: BLOOD SPECIMENOrdering Facility: [facility] Address: [address] Performed By: #### 5 7021-8 ####[facility] LABCLIA [id number] [place] [address] [place] Monocytes (Bld) [#/Vol] 0.51 10*3/uL Normal <0.87 [facility] Comment on above: Order Comment: Speci men Type: BLOOD SPECIMENOrdering Facility: [facility] Address: [address] Performed By: #### 5 7021-8 ####[facility] LABCLIA [id number] [place] [address] [place] Monocytes/100 WBC (Bld) 10.0 % Normal [facility] Comment on above: Order Comment: Speci men Type: BLOOD SPECIMENOrdering Facility: [facility] Address: [address] Performed By: #### 5 7021-8 ####[facility] LABCLIA [id number] [place] [address] [place] Neutrophils (Bld) [#/Vol] 3.30 10*3/uL Normal 1.45-7.50 [facility] Comment on above: Order Comment: Speci men Type: BLOOD SPECIMENOrdering Facility: [facility] Address: [address] Performed By: #### 5 7021-8 ####[facility] LABCLIA [id number] [place] [address] [place] Neutrophils/100 WBC (Bld) 64.5 % Normal [facility] Comment on above: Order Comment: Speci men Type: BLOOD SPECIMENOrdering Facility: [facility] Address: [address] Performed By: #### 5 7021-8 ####[facility] LABCLIA [id number] [place] [address] [place] Nucleated RBC (Bld) [#/Vol] 10*3/uL Normal <0.01 [facility] Comment on above: Order Comment: Speci men Type: BLOOD SPECIMENOrdering Facility: [facility] Address: [address] [place], [place] [address] Performed By: #### 5 7021-8 ####[facility] LABCLIA [id number] [place] [address] [place] Nucleated RBC/100 WBC (Bld) [Ratio] 0.0 /100 WBC Normal [facility] Comment on above: Order Comment: Speci men Type: BLOOD SPECIMENOrdering Facility: [facility] Address: [address] [place], [place] [address] Performed By: #### 5 7021-8 ####[facility] LABIA [id number] [place] [address] [place] Platelet mean volume (Bld) [Entitic vol] 9.7 fL Normal 9.0-12.7 [facility] Comment on above: Order Comment: Speci men Type: BLOOD SPECIMENOrdering Facility: [facility] Address: [address] [place], [place] [address] Performed By: #### 5 7021-8 ####[facility] LABIA [id number] [place] [address] [place] Platelets (Bld) [#/Vol] 165 10*3/uL Normal 150-400 [facility] Comment on above: Order Comment: Speci men Type: BLOOD SPECIMENOrdering Facility: [facility] Address: [address] [place] [address] Performed By: #### 5 7021-8 ####[facility] LABCLIA [id number] [place] [address] [place] RBC (Bld) [#/Vol] 2.74 10*6/uL Low 4.20-6.00 [facility] Comment on above: Order Comment: Speci men Type: BLOOD SPECIMENOrdering Facility: [facility] Address: [address] [place], [place] [address] Performed By: #### 5 7021-8 ####[facility] LABCLIA [id number] [place] [address] [place] WBC (Bld) [#/Vol] 5.11 10*3/uL Normal 3.70-11.00 [facility] Comment on above: Order Comment: Speci men Type: BLOOD SPECIMENOrdering Facility: [facility] Address: [address] [place], [place] [address] Performed By: #### 5 7021-8 ####[facility] LABCLIA [id number] [place] [address] [place] [facility] Comprehensive metabolic 2000 panelon 08-09-2022 Albumin [Mass/Vol] 2.2 g/dL Low 3.9-4.9 [facility] Comment on above: Order Comment: Speci men Type: BLOOD SPECIMENOrdering Facility: [facility] Address: [address] [place], [place] [address] Performed By: #### 2 4323-8, , 2776-05 ####[facility] LABCLIA [id number] [place] [address] [place] ALP [Catalytic activity/Vol] 27 U/L Low 38-113 [facility] Comment on above: Order Comment: Speci men Type: BLOOD SPECIMENOrdering Facility: [facility] Address: [address] [place], [place] [address] Performed By: #### 2 4323-8, , 2776-05 ####[facility] LABCLIA [id number] [place] [id number] [place] ALT [Catalytic activity/Vol] 12 U/L Normal 10-54 [facility] Comment on above: Order Comment: Speci men Type: BLOOD SPECIMENOrdering Facility: [facility] Address: [address] Performed By: #### 2 4323-8, , 2776-05 ####[facility] LABCLIA [id number] [place] [address] [place] Anion gap [Moles/Vol] 9 mmol/L Normal 9-18 [facility] Comment on above: Order Comment: Speci men Type: BLOOD SPECIMENOrdering Facility: [facility] Address: [address] [place] [address] Performed By: #### 2 4323-8, , 2776-05 ####[facility] LABCLIA [id number] [place] [address] [place] AST [Catalytic activity/Vol] 12 U/L Low 14-40 [facility] Comment on above: Order Comment: Speci men Type: BLOOD SPECIMENOrdering Facility: [facility] Address: [address] [place] [address] Performed By: #### 2 4323-8, , 2776-05 ####[facility] LABCLIA [id number] [place] [address] [place] Bilirubin [Mass/Vol] 0.2 mg/dL Normal 0.2-1.3 [facility] Comment on above: Order Comment: Speci men Type: BLOOD SPECIMENOrdering Facility: [facility] Address: [address] Performed By: #### 2 4323-8, , 2776-05 ####[facility] LABCLIA [id number] [place] [address] [place] Calcium [Mass/Vol] 7.8 mg/dL Low 8.5-10.2 [facility] Comment on above: Order Comment: Speci men Type: BLOOD SPECIMENOrdering Facility: [facility] Address: [address] Performed By: #### 2 4323-8, , 2776-05 ####[facility] LABCLIA [id number] [place] [address] [place] Chloride [Moles/Vol] 106 mmol/L High 97-105 [facility] Comment on above: Order Comment: Speci men Type: BLOOD SPECIMENOrdering Facility: [facility] Address: [address] [place], [place] [address] Performed By: #### 2 4323-8, , 2776-05 ####[facility] LABCLIA [id number] [place] [address] [place] CO2 [Moles/Vol] 27 mmol/L Normal 22-30 [facility] Comment on above: Order Comment: Speci men Type: BLOOD SPECIMENOrdering Facility: [facility] Address: [address] [place], [place] [address] Performed By: #### 2 4323-8, , 2776-05 ####[facility] LABCLIA [id number] [place] [address] [place] Creatinine [Mass/Vol] 7.27 mg/dL High 0.73-1.22 [facility] Comment on above: Order Comment: Speci men Type: BLOOD SPECIMENOrdering Facility: [facility] Address: [address] [place], [place] [address] Performed By: #### 2 4323-8, , 2776-05 ####[facility] LABCLIA [id number] [place] [address] [place] ESTIMATED GLOMERULAR FILTRATION RATE 8 mL/min/1.73m??? Low >=60 [facility] Comment on above: Order Comment: Speci men Type: BLOOD SPECIMENOrdering Facility: [facility] Address: [address] [place] [address] [place] [address] Result Comment: Lamar mated Glomerular Filtration Rate (eGFR) is calculated using the 2020 CKD-EPI creatinine equation. This equation utilizes serum creatinine, sex, and age as parameters. The creatinine assay has traceable calibration to isotope dilution-mass spectrometry. Refer to KDIGO guidelines for clinical interpretation. In patients with unstable renal function, e.g. those with acute kidney injury, the eGFR may not accurately reflect actual GFR. Performed By: #### 2 4323-8, , 2776-05 ####[facility] LABCLIA [id number] [place] [id number] [place] Glucose [Mass/Vol] 101 mg/dL High 74-99 [facility] Comment on above: Order Comment: Speci tristan Type: BLOOD SPECIMENOrdering Facility: [facility] Address: [address] Result Comment: The [place] [employer] (ADA) provides guidance for cutoff values for fasting glucose and random glucose. The ADA defines fasting as no caloric intake for at least 8 hours. Fasting plasma glucose results between 100 to 125 mg/dL indicate increased risk for diabetes (prediabetes).Fasting plasma glucose results greater than or equal to 126 mg/dL meet the criteria for diagnosis of diabetes. In the absence of unequivocal hyperglycemia, results should be confirmed by repeat testing. In a patient with classic symptoms of hyperglycemia or hyperglycemic crisis, random plasma glucose results greater than or equal to 200 mg/dL meet the criteria for diagnosis of diabetes.Reference: Standards of Medical Care in Diabetes 2016, [place] [employer]. Diabetes Care. 2016.39(Suppl 1). Performed By: #### 2 4323-8, , 2776-05 ####[facility] LABIA [id number] [place] [id number] [place] Potassium [Moles/Vol] 4.6 mmol/L Normal 3.7-5.1 [facility] Comment on above: Order Comment: Speci men Type: BLOOD SPECIMENOrdering Facility: [facility] Address: [address] [id number] Performed By: #### 2 4323-8, , 2776-05 ####[facility] LABCLIA [id number] [place] [address] [place] Protein [Mass/Vol] 4.1 g/dL Low 6.3-8.0 [facility] Comment on above: Order Comment: Speci men Type: BLOOD SPECIMENOrdering Facility: [facility] Address: [address] [place] [place] [address] Performed By: #### 2 4323-8, , 2776-05 ####[facility] LABCLIA [id number] [place] [address] [place] Sodium [Moles/Vol] 142 mmol/L Normal 136-144 [facility] Comment on above: Order Comment: Speci men Type: BLOOD SPECIMENOrdering Facility: [facility] Address: [address] [place] [address] Performed By: #### 2 4323-8, , 2776-05 ####[facility] LABIA [id number] [place] [address] [place] Urea nitrogen [Mass/Vol] 80 mg/dL High 9-24 [facility] Comment on above: Order Comment: Speci men Type: BLOOD SPECIMENOrdering Facility: [facility] Address: [address] [place] [address] Performed By: #### 2 4323-8, , 2776-05 ####[facility] LABCLIA [id number] [place] [id number] [place] Magnesium SerPl-mCncon 08-09 Magnesium [Mass/Vol] 2.1 mg/dL Normal 1.7-2.3 [facility] Comment on above: Order Comment: Speci men Type: BLOOD SPECIMENOrdering Facility: [facility] [facility] Address: [address] [place] [address] Performed By: #### 2 4323-8, 58584-0, 2777-1 ####[facility] [place] LABCLIA [id number] [place] [address] [place] Phosphate SerPl-mCncon 08-09 Phosphate [Mass/Vol] 4.2 mg/dL Normal 2.7-4.8 [facility] Comment on above: Order Comment: Speci men Type: BLOOD SPECIMENOrdering Facility: [facility] Address: [address] [place] [address] Performed By: #### 2 4323-8, 39125-1, 2777- ####[facility] LABIA [id number] [place] [address] [place] CASE MANAGEMon 08-08-2022 CASE MANAGEM Normal [facility] CBC W Auto Differential pane l (Bld)on 08-08-2022 Basophils (Bld) [#/Vol] 0.03 10*3/uL Normal <0.11 [facility] Comment on above: Order Comment: Speci men Type: BLOOD SPECIMENOrdering Facility: [facility] Address: [address] [place] [address] Performed By: #### 5 7021-8 ####[facility] [place] LABCLIA [id number] [address] [place] Basophils/100 WBC (Bld) 0.5 % Normal [facility] Comment on above: Order Comment: Speci men Type: BLOOD SPECIMENOrdering Facility: [facility] Address: [address] [place], [place] [address] Performed By: #### 5 7021-8 ####[facility] [place] LABIA [id number] [place] [address] [place] Differential cell count method Nom (Bld) Auto Normal [facility] Comment on above: Order Comment: Speci men Type: BLOOD SPECIMENOrdering Facility: [facility] Address: [address] [place], [place] [address] Performed By: #### 5 7021-8 ####[facility] [place] LABCLIA [id number] [place] [address] [place] Eosinophils (Bld) [#/Vol] 0.30 10*3/uL Normal <0.46 [facility] Comment on above: Order Comment: Speci men Type: BLOOD SPECIMENOrdering Facility: [facility] Address: [address] [place], [place] [address] Performed By: #### 5 7021-8 ####[facility] [place] LABCLIA [id number] [place] [address] [place] Eosinophils/100 WBC (Bld) 5.5 % Normal [facility] Comment on above: Order Comment: Speci men Type: BLOOD SPECIMENOrdering Facility: [facility] Address: [address] [place] [address] Performed By: #### 5 7021-8 ####[facility] [place] LABCLIA [id number] [address] [place] Erythrocyte distribution width (RBC) [Ratio] 15.6 % High 11.5-15.0 [facility] Comment on above: Order Comment: Speci men Type: BLOOD SPECIMENOrdering Facility: [facility] Address: [address] [place], [place] [address] Performed By: #### 5 7021-8 ####[facility] [place] LABCLIA [id number] [place] [address] [place] Hematocrit (Bld) [Volume fraction] 25.1 % Low 39.0-51.0 [facility] Comment on above: Order Comment: Speci men Type: BLOOD SPECIMENOrdering Facility: [facility] Address: [address] [place], [place] [address] Performed By: #### 5 7021-8 ####[facility] [place] LABCLIA [id number] [id number] [address] [place] Hemoglobin (Bld) [Mass/Vol] 8.1 g/dL Low 13.0-17.0 [facility] Comment on above: Order Comment: Speci men Type: BLOOD SPECIMENOrdering Facility: [facility] Address: [address] [place] [address] Performed By: #### 5 7021-8 ####[facility] [place] LABCLIA [id number] [place] [address] [place] Immature granulocytes (Bld) [#/Vol] 0.09 10*3/uL Normal <0.10 [facility] Comment on above: Order Comment: Speci men Type: BLOOD SPECIMENOrdering Facility: [facility] Address: [address] [place] [address] Performed By: #### 5 7021-8 ####[facility] [place] LABCLIA [id number] [address] [place] Immature granulocytes/100 WBC (Bld) 1.6 % Normal [facility] Comment on above: Order Comment: Speci men Type: BLOOD SPECIMENOrdering Facility: [facility] Address: [address] [place] [address] Performed By: #### 5 7021-8 ####[facility] [place] LABCLIA [id number] [place] [address] [place] Lymphocytes (Bld) [#/Vol] 0.72 10*3/uL Low 1.00-4.00 [facility] Comment on above: Order Comment: Speci men Type: BLOOD SPECIMENOrdering Facility: [facility] Address: [address] [place] [address] Performed By: #### 5 7021-8 ####[facility] [place] LABCLIA [id number] [place] [address] [place] Lymphocytes/100 WBC (Bld) 13.1 % Normal [facility] Comment on above: Order Comment: Speci men Type: BLOOD SPECIMENOrdering Facility: [facility] Address: [address] Performed By: #### 5 7021-8 ####[facility] [place] LABIA [id number] [address] MCH (RBC) [Entitic mass] 29.5 pg Normal 26.0-34.0 [facility] Comment on above: Order Comment: Speci men Type: BLOOD SPECIMENOrdering Facility: [facility] Address: [address] Performed By: #### 5 7021-8 ####[facility] [place] LABIA [id number] [address] [place] MCHC (RBC) [Mass/Vol] 32.3 g/dL Normal 30.5-36.0 [facility] Comment on above: Order Comment: Speci men Type: BLOOD SPECIMENOrdering Facility: [facility] Address: [address] Performed By: #### 5 7021-8 ####[facility] [place] LABIA [id number] [address] [place] MCV (RBC) [Entitic vol] 91.3 fL Normal 80.0-100.0 [facility] Comment on above: Order Comment: Speci men Type: BLOOD SPECIMENOrdering Facility: [facility] Address: [address] Performed By: #### 5 7021-8 ####[facility] [place] LABIA [id number] [place] [address] [place] Monocytes (Bld) [#/Vol] 0.53 10*3/uL Normal <0.87 [facility] Comment on above: Order Comment: Speci men Type: BLOOD SPECIMENOrdering Facility: [facility] Address: [address] Performed By: #### 5 7021-8 ####[facility] [place] LABCLIA [id number] [place] [address] [place] Monocytes/100 WBC (Bld) 9.7 % Normal [facility] Comment on above: Order Comment: Speci men Type: BLOOD SPECIMENOrdering Facility: [facility] Address: [address] [place] [address] Performed By: #### 5 7021-8 ####[facility] [place] LABCLIA [id number] [place] [address] [place] Neutrophils (Bld) [#/Vol] 3.82 10*3/uL Normal 1.45-7.50 [facility] Comment on above: Order Comment: Speci men Type: BLOOD SPECIMENOrdering Facility: [facility] Address: [address] [place] [address] Performed By: #### 5 7021-8 ####[facility] [place] LABCLIA [id number] [place] [address] [place] Neutrophils/100 WBC (Bld) 69.6 % Normal [facility] Comment on above: Order Comment: Speci men Type: BLOOD SPECIMENOrdering Facility: [facility] Address: [address] [place], [place] [address] Performed By: #### 5 7021-8 ####[facility] [place] LABCLIA [id number] [place] [address] [place] Nucleated RBC (Bld) [#/Vol] 10*3/uL Normal <0.01 [facility] Comment on above: Order Comment: Speci men Type: BLOOD SPECIMENOrdering Facility: [facility] Address: [address] [place], [place] [address] Performed By: #### 5 7021-8 ####[facility] [place] LABCLIA [id number] [place] [address] [place] Nucleated RBC/100 WBC (Bld) [Ratio] 0.0 /100 WBC Normal [facility] Comment on above: Order Comment: Speci men Type: BLOOD SPECIMENOrdering Facility: [facility] Address: [address] [place], [place] [address] Performed By: #### 5 7021-8 ####[facility] [place] LABCLIA [id number] [place] [address] [place] Platelet mean volume (Bld) [Entitic vol] 10.0 fL Normal 9.0-12.7 [facility] Comment on above: Order Comment: Speci men Type: BLOOD SPECIMENOrdering Facility: [facility] Address: [address] [place], [place] [address] Performed By: #### 5 7021-8 ####[facility] [place] LABCLIA [id number] [place] [address] [place] Platelets (Bld) [#/Vol] 151 10*3/uL Normal 150-400 [facility] Comment on above: Order Comment: Speci men Type: BLOOD SPECIMENOrdering Facility: [facility] Address: [address] [place] [address] Performed By: #### 5 7021-8 ####[facility] [place] LABIA [id number] [place] [address] [place] RBC (Bld) [#/Vol] 2.75 10*6/uL Low 4.20-6.00 [facility] Comment on above: Order Comment: Speci men Type: BLOOD SPECIMENOrdering Facility: [facility] Address: [address] [place], [place] [address] Performed By: #### 5 7021-8 ####[facility] [place] LABCLIA [id number] [place] [address] [place] WBC (Bld) [#/Vol] 5.49 10*3/uL Normal 3.70-11.00 [facility] Comment on above: Order Comment: Speci men Type: BLOOD SPECIMENOrdering Facility: [facility] Address: [address] [place], [place] [address] Performed By: #### 5 7021-8 ####[facility] [place] LABCLIA [id number] [place] [address] [place] CONSULT PROGon 08-08-2022 CONSULT PROG Normal [facility] Comprehensive metabolic 2000 panelon 08-08-2022 Albumin [Mass/Vol] 2.1 g/dL Low 3.9-4.9 [facility] Comment on above: Order Comment: Speci men Type: BLOOD SPECIMENOrdering Facility: [facility] Address: [address] Performed By: #### 2 4323-8, 78182-6, 2776-05 ####[facility] LABCLIA [id number] [place] [address] [place] ALP [Catalytic activity/Vol] 26 U/L Low 38-113 [facility] Comment on above: Order Comment: Speci men Type: BLOOD SPECIMENOrdering Facility: [facility] Address: [address] [place] [address] Performed By: #### 2 4323-8, , 2776-05 ####[facility] [place] LABIA [id number] [address] [place] ALT [Catalytic activity/Vol] 11 U/L Normal 10-54 [facility] Comment on above: Order Comment: Speci men Type: BLOOD SPECIMENOrdering Facility: [facility] Address: [address] Performed By: #### 2 4323-8, , 2776-05 ####[facility] [place] LABIA [id number] [place] [address] [place] Anion gap [Moles/Vol] 9 mmol/L Normal 9-18 [facility] Comment on above: Order Comment: Speci men Type: BLOOD SPECIMENOrdering Facility: [facility] Address: [address] Performed By: #### 2 4323-8, 99663-2, 2776-05 ####[facility] [place] LABIA [id number] [place] [address] [place] AST [Catalytic activity/Vol] 10 U/L Low 14-40 [facility] Comment on above: Order Comment: Speci men Type: BLOOD SPECIMENOrdering Facility: [facility] Address: [address] [place], [place] [address] Performed By: #### 2 4323-8, , 2776-05 ####[facility] [place] LABIA [id number] [place] [address] [place] Bilirubin [Mass/Vol] 0.3 mg/dL Normal 0.2-1.3 [facility] Comment on above: Order Comment: Speci men Type: BLOOD SPECIMENOrdering Facility: [facility] Address: [address] [place] [address] Performed By: #### 2 4323-8, , 2776-05 ####[facility] [place] LABIA [id number] [place] [address] [place] Calcium [Mass/Vol] 7.3 mg/dL Low 8.5-10.2 [facility] Comment on above: Order Comment: Speci men Type: BLOOD SPECIMENOrdering Facility: [facility] Address: [address] [place], [place] [address] Performed By: #### 2 4323-8, , 2776-05 ####[facility] [place] LABIA [id number] [place] [address] [place] Chloride [Moles/Vol] 104 mmol/L Normal 97-105 [facility] Comment on above: Order Comment: Speci men Type: BLOOD SPECIMENOrdering Facility: [facility] Address: [address] [place], [place] [address] Performed By: #### 2 4323-8, , 2776-05 ####[facility] [place] LABCLIA [id number] [place] [address] [place] CO2 [Moles/Vol] 28 mmol/L Normal 22-30 [facility] Comment on above: Order Comment: Speci men Type: BLOOD SPECIMENOrdering Facility: [facility] Address: [address] [place] [address] Performed By: #### 2 4323-8, , 2776-05 ####[facility] [place] LABIA [id number] [place] [address] [place] Creatinine [Mass/Vol] 6.87 mg/dL High 0.73-1.22 [facility] Comment on above: Order Comment: Speci men Type: BLOOD SPECIMENOrdering Facility: [facility] Address: [address] [place] [address] Performed By: #### 2 432-8, , 2776-05 ####[facility] [place] LABIA [id number] [place] [address] [place] ESTIMATED GLOMERULAR FILTRATION RATE 8 mL/min/1.73m??? Low >=60 [facility] Comment on above: Order Comment: Speci men Type: BLOOD SPECIMENOrdering Facility: [facility] Address: [address] [place] [address] Result Comment: Lamar mated Glomerular Filtration Rate (eGFR) is calculated using the 2020 CKD-EPI creatinine equation. This equation utilizes serum creatinine, sex, and age as parameters. The creatinine assay has traceable calibration to isotope dilution-mass spectrometry. Refer to KDIGO guidelines for clinical interpretation. In patients with unstable renal function, e.g. those with acute kidney injury, the eGFR may not accurately reflect actual GFR. Performed By: #### 2 4323-8, , 2776-05 ####[facility] LABIA [id number] [place] [address] [place] Glucose [Mass/Vol] 96 mg/dL Normal 74-99 [facility] Comment on above: Order Comment: Speci men Type: BLOOD SPECIMENOrdering Facility: [facility] Address: [address] [place] [address] Result Comment: The [place] [employer] (ADA) provides guidance for cutoff values for fasting glucose and random glucose. The ADA defines fasting as no caloric intake for at least 8 hours. Fasting plasma glucose results between 100 to 125 mg/dL indicate increased risk for diabetes (prediabetes).Fasting plasma glucose results greater than or equal to 126 mg/dL meet the criteria for diagnosis of diabetes. In the absence of unequivocal hyperglycemia, results should be confirmed by repeat testing. In a patient with classic symptoms of hyperglycemia or hyperglycemic crisis, random plasma glucose results greater than or equal to 200 mg/dL meet the criteria for diagnosis of diabetes.Reference: Standards of Medical Care in Diabetes 2016, [place] [employer]. Diabetes Care. 2016.39(Suppl 1). Performed By: #### 2 4323-8, , 2776-05 ####[facility] LABCLIA [id number] [place] [address] [place] Potassium [Moles/Vol] 4.1 mmol/L Normal 3.7-5.1 [facility] Comment on above: Order Comment: Speci men Type: BLOOD SPECIMENOrdering Facility: [facility] Address: [address] [place], [place] [address] Performed By: #### 2 4323-8, , 2776-05 ####[facility] [place] LABCLIA [id number] [place] [address] [place] Protein [Mass/Vol] 4.0 g/dL Low 6.3-8.0 [facility] Comment on above: Order Comment: Speci men Type: BLOOD SPECIMENOrdering Facility: [facility] Address: [address] [place], [place] [address] Performed By: #### 2 4323-8, , 2776- ####[facility] LABCLIA [id number] [place] [address] [place] Sodium [Moles/Vol] 141 mmol/L Normal 136-144 [facility] Comment on above: Order Comment: Speci men Type: BLOOD SPECIMENOrdering Facility: [facility] Address: [address] [place] [address] Performed By: #### 2 4323-8, , 2776-05 ####[facility] [id number] [place] [address] [place] Urea nitrogen [Mass/Vol] 80 mg/dL High 9-24 [facility] Comment on above: Order Comment: Speci men Type: BLOOD SPECIMENOrdering Facility: [facility] Address: [address] [place] [address] Performed By: #### 2 4323-8, , 2776-05 ####[facility] [id number] [place] [address] [place] Magnesium SerPl-mCncon 08-08 Magnesium [Mass/Vol] 1.7 mg/dL Normal 1.7-2.3 [facility] Comment on above: Order Comment: Speci men Type: BLOOD SPECIMENOrdering Facility: [facility] Address: [address] [place] [address] Performed By: #### 2 4323-8, , 2776-05 ####[facility] [id number] [place] [address] [place] Phosphate SerPl-mCncon 08-08 Phosphate [Mass/Vol] 3.8 mg/dL Normal 2.7-4.8 [facility] Comment on above: Order Comment: Speci men Type: BLOOD SPECIMENOrdering Facility: [facility] Address: [address] [place], [place] [address] Performed By: #### 2 4323-8, , 2776-05 ####[facility] LABCLIA [id number] [place] [address] [place] XR UPPER GI SINGLE CONTRASTo n 08-08-2022 XR UPPER GI SINGLE CONTRAST Normal [facility] CBC W Auto Differential pane l (Bld)on 08-07-2022 Basophils (Bld) [#/Vol] 0.03 10*3/uL Normal <0.11 [facility] Comment on above: Order Comment: Speci men Type: BLOOD SPECIMENOrdering Facility: [facility] Address: [address] [place] [address] Performed By: #### 5 7021-8 ####[facility] LABCLIA [id number] [place] [address] [place] Basophils/100 WBC (Bld) 0.5 % Normal [facility] Comment on above: Order Comment: Speci men Type: BLOOD SPECIMENOrdering Facility: [facility] Address: [address] [place] [address] Performed By: #### 5 7021-8 ####[facility] LABCLIA [id number] [place] [address] [place] Differential cell count method Nom (Bld) Auto Normal [facility] Comment on above: Order Comment: Speci men Type: BLOOD SPECIMENOrdering Facility: [facility] Address: [address] Performed By: #### 5 7021-8 ####[facility] LABCLIA [id number] [place] [address] [place] Eosinophils (Bld) [#/Vol] 0.32 10*3/uL Normal <0.46 [facility] Comment on above: Order Comment: Speci men Type: BLOOD SPECIMENOrdering Facility: [facility] Address: [address] Performed By: #### 5 7021-8 ####[facility] LABCLIA [id number] [place] [address] [place] Eosinophils/100 WBC (Bld) 5.4 % Normal [facility] Comment on above: Order Comment: Speci men Type: BLOOD SPECIMENOrdering Facility: [facility] Address: [address] [place] [address] Performed By: #### 5 7021-8 ####[facility] LABIA [id number] [place] [address] [place] Erythrocyte distribution width (RBC) [Ratio] 15.9 % High 11.5-15.0 [facility] Comment on above: Order Comment: Speci men Type: BLOOD SPECIMENOrdering Facility: [facility] Address: [address] [place] [address] Performed By: #### 5 7021-8 ####[facility] LABIA [id number] [place] [address] [place] Hematocrit (Bld) [Volume fraction] 23.8 % Low 39.0-51.0 [facility] Comment on above: Order Comment: Speci men Type: BLOOD SPECIMENOrdering Facility: [facility] Address: [address] [place] [address] Performed By: #### 5 7021-8 ####[facility] LABIA [id number] [place] [address] [place] Hemoglobin (Bld) [Mass/Vol] 7.9 g/dL Low 13.0-17.0 [facility] Comment on above: Order Comment: Speci men Type: BLOOD SPECIMENOrdering Facility: [facility] Address: [address] [place], [place] [address] Performed By: #### 5 7021-8 ####[facility] LABCLIA [id number] [place] [address] [place] Immature granulocytes (Bld) [#/Vol] 0.08 10*3/uL Normal <0.10 [facility] Comment on above: Order Comment: Speci men Type: BLOOD SPECIMENOrdering Facility: [facility] Address: [address] [place] [place] [address] Performed By: #### 5 7021-8 ####[facility] LABIA [id number] [address] Immature granulocytes/100 WBC (Bld) 1.4 % Normal [facility] Comment on above: Order Comment: Speci men Type: BLOOD SPECIMENOrdering Facility: [facility] Address: [address] [place] [place] [address] Performed By: #### 5 7021-8 ####[facility] [id number] [place] [address] [place] Lymphocytes (Bld) [#/Vol] 0.58 10*3/uL Low 1.00-4.00 [facility] Comment on above: Order Comment: Speci men Type: BLOOD SPECIMENOrdering Facility: [facility] Address: [address] [address] Performed By: #### 5 7021-8 ####[facility] [place] LABIA [id number] [address] Lymphocytes/100 WBC (Bld) 9.8 % Normal [facility] Comment on above: Order Comment: Speci men Type: BLOOD SPECIMENOrdering Facility: [facility] Address: [address] Performed By: #### 5 7021-8 ####[facility] [id number] [place] [address] [place] MCH (RBC) [Entitic mass] 29.7 pg Normal 26.0-34.0 [facility] Comment on above: Order Comment: Speci men Type: BLOOD SPECIMENOrdering Facility: [facility] Address: [address] Performed By: #### 5 7021-8 ####[facility] [place] LABCLIA [id number] [place] [address] [place] MCHC (RBC) [Mass/Vol] 33.2 g/dL Normal 30.5-36.0 [facility] Comment on above: Order Comment: Speci men Type: BLOOD SPECIMENOrdering Facility: [facility] Address: [address] [place] [address] Performed By: #### 5 7021-8 ####[facility] [place] LABIA [id number] [place] [address] [place] MCV (RBC) [Entitic vol] 89.5 fL Normal 80.0-100.0 [facility] Comment on above: Order Comment: Speci men Type: BLOOD SPECIMENOrdering Facility: [facility] Address: [address] [place] [address] Performed By: #### 5 7021-8 ####[facility] [place] LABIA [id number] [place] [address] [place] Monocytes (Bld) [#/Vol] 0.58 10*3/uL Normal <0.87 [facility] Comment on above: Order Comment: Speci men Type: BLOOD SPECIMENOrdering Facility: [facility] Address: [address] [place] [address] Performed By: #### 5 7021-8 ####[facility] [place] LABIA [id number] [address] [place] Monocytes/100 WBC (Bld) 9.8 % Normal [facility] Comment on above: Order Comment: Speci men Type: BLOOD SPECIMENOrdering Facility: [facility] Address: [address] [place], [place] [address] Performed By: #### 5 7021-8 ####[facility] [place] LABIA [id number] [place] [address] [place] Neutrophils (Bld) [#/Vol] 4.33 10*3/uL Normal 1.45-7.50 [facility] Comment on above: Order Comment: Speci men Type: BLOOD SPECIMENOrdering Facility: [facility] Address: [address] Performed By: #### 5 7021-8 ####[facility] [place] LABCLIA [id number] [place] [address] [place] Neutrophils/100 WBC (Bld) 73.1 % Normal [facility] Comment on above: Order Comment: Speci men Type: BLOOD SPECIMENOrdering Facility: [facility] Address: [address] [place], [place] [address] Performed By: #### 5 7021-8 ####[facility] [place] LABIA [id number] [place] [address] [place] Nucleated RBC (Bld) [#/Vol] 10*3/uL Normal <0.01 [facility] Comment on above: Order Comment: Speci men Type: BLOOD SPECIMENOrdering Facility: [facility] Address: [address] [place], [place] [address] Performed By: #### 5 7021-8 ####[facility] [place] LABIA [id number] [place] [address] [place] Nucleated RBC/100 WBC (Bld) [Ratio] 0.0 /100 WBC Normal [facility] Comment on above: Order Comment: Speci men Type: BLOOD SPECIMENOrdering Facility: [facility] Address: [address] [place], [place] [address] Performed By: #### 5 7021-8 ####[facility] [place] LABIA [id number] [place] [address] [place] Platelet mean volume (Bld) [Entitic vol] 9.8 fL Normal 9.0-12.7 [facility] Comment on above: Order Comment: Speci men Type: BLOOD SPECIMENOrdering Facility: [facility] Address: [address] [place] [place] [address] Performed By: #### 5 7021-8 ####[facility] [place] LABIA [id number] [place] [address] [place] Platelets (Bld) [#/Vol] 131 10*3/uL Low 150-400 [facility] Comment on above: Order Comment: Speci men Type: BLOOD SPECIMENOrdering Facility: [facility] Address: [address] Performed By: #### 5 7021-8 ####[facility] [place] LABIA [id number] [address] RBC (Bld) [#/Vol] 2.66 10*6/uL Low 4.20-6.00 [facility] Comment on above: Order Comment: Speci men Type: BLOOD SPECIMENOrdering Facility: [facility] Address: [address] [place], [place] [address] Performed By: #### 5 7021-8 ####[facility] [id number] [place] [address] [place] [facility] WBC (Bld) [#/Vol] 5.92 10*3/uL Normal 3.70-11.00 [facility] Comment on above: Order Comment: Speci men Type: BLOOD SPECIMENOrdering Facility: [facility] Address: [address] [place], [place] [address] Performed By: #### 5 7021-8 ####[facility] [id number] [place] [id number] [place] Comprehensive metabolic 2000 panelon 08-07-2022 Albumin [Mass/Vol] 2.1 g/dL Low 3.9-4.9 [facility] Comment on above: Order Comment: Speci men Type: BLOOD SPECIMENOrdering Facility: [facility] Address: [address] [place], [place] [address] Performed By: #### 2 43238, , 2776-05 ####[facility] [place] LABCLIA [id number] [place] [address] [place] ALP [Catalytic activity/Vol] 22 U/L Low 38-113 [facility] Comment on above: Order Comment: Speci men Type: BLOOD SPECIMENOrdering Facility: [facility] Address: [address] [place] [address] Performed By: #### 2 4323-8, , 2776-05 ####[facility] [place] LABCLIA [id number] [place] [address] [place] ALT [Catalytic activity/Vol] 13 U/L Normal 10-54 [facility] Comment on above: Order Comment: Speci men Type: BLOOD SPECIMENOrdering Facility: [facility] Address: [address] [place] [address] Performed By: #### 2 4328, , 2776-05 ####[facility] [place] LABCLIA [id number] [place] [address] [place] Anion gap [Moles/Vol] 10 mmol/L Normal 9-18 [facility] Comment on above: Order Comment: Speci men Type: BLOOD SPECIMENOrdering Facility: [facility] Address: [address] [place] [address] Performed By: #### 2 4323-8, , 2776-05 ####[facility] [place] LABCLIA [id number] [place] [address] [place] AST [Catalytic activity/Vol] 10 U/L Low 14-40 [facility] Comment on above: Order Comment: Speci men Type: BLOOD SPECIMENOrdering Facility: [facility] Address: [address] Performed By: #### 2 4323-8, , 2776-05 ####[facility] [place] LABCLIA [id number] [place] [address] [place] Bilirubin [Mass/Vol] 0.3 mg/dL Normal 0.2-1.3 [facility] Comment on above: Order Comment: Speci men Type: BLOOD SPECIMENOrdering Facility: [facility] Address: [address] [place] [address] Performed By: #### 2 4323-8, , 2776-05 ####[facility] [place] LABCLIA [id number] [place] [address] [place] Calcium [Mass/Vol] 7.0 mg/dL Low 8.5-10.2 [facility] Comment on above: Order Comment: Speci men Type: BLOOD SPECIMENOrdering Facility: [facility] Address: [address] [place] [address] Performed By: #### 2 432-8, , 2776-05 ####[facility] [place] LABCLIA [id number] [place] [address] [place] Chloride [Moles/Vol] 102 mmol/L Normal 97-105 [facility] Comment on above: Order Comment: Speci men Type: BLOOD SPECIMENOrdering Facility: [facility] Address: [address] [place], [place] [address] Performed By: #### 2 4323-8, , 2776-05 ####[facility] [place] LABCLIA [id number] [place] [address] [place] CO2 [Moles/Vol] 27 mmol/L Normal 22-30 [facility] Comment on above: Order Comment: Speci men Type: BLOOD SPECIMENOrdering Facility: [facility] Address: [address] [place], [place] [address] Performed By: #### 2 4323-8, , 2776-05 ####[facility] [place] LABCLIA [id number] [place] [address] [place] Creatinine [Mass/Vol] 6.69 mg/dL High 0.73-1.22 [facility] Comment on above: Order Comment: Chayito uhdson Type: BLOOD SPECIMENOrdering Facility: [facility] Address: [address] [place] [address] Performed By: #### 2 4323-8, 89491-7, 2776-05 ####[facility] [place] LABCLIA [id number] [address] OF [facility] ESTIMATED GLOMERULAR FILTRATION RATE 9 mL/min/1.73m??? Low >=60 [facility] Comment on above: Order Comment: Chayito hudson Type: BLOOD SPECIMENOrdering Facility: [facility] Address: [address] [place] [address] Result Comment: Lamar mated Glomerular Filtration Rate (eGFR) is calculated using the 2020 CKD-EPI creatinine equation. This equation utilizes serum creatinine, sex, and age as parameters. The creatinine assay has traceable calibration to isotope dilution-mass spectrometry. Refer to KDIGO guidelines for clinical interpretation. In patients with unstable renal function, e.g. those with acute kidney injury, the eGFR may not accurately reflect actual GFR. Performed By: #### 2 4323-8, , 2776-05 ####[facility] [place] LABCLIA [id number] [place] [address] [place] Glucose [Mass/Vol] 108 mg/dL High 74-99 [facility] Comment on above: Order Comment: Chayito hudson Type: BLOOD SPECIMENOrdering Facility: [facility] Address: [address] [place] [address] Result Comment: The [place] Diabetes Association (ADA) provides guidance for cutoff values for fasting glucose and random glucose. The ADA defines fasting as no caloric intake for at least 8 hours. Fasting plasma glucose results between 100 to 125 mg/dL indicate increased risk for diabetes (prediabetes).Fasting plasma glucose results greater than or equal to 126 mg/dL meet the criteria for diagnosis of diabetes. In the absence of unequivocal hyperglycemia, results should be confirmed by repeat testing. In a patient with classic symptoms of hyperglycemia or hyperglycemic crisis, random plasma glucose results greater than or equal to 200 mg/dL meet the criteria for diagnosis of diabetes.Reference: Standards of Medical Care in Diabetes 2016, [place] [employer]. Diabetes Care. 2016.39(Suppl 1). Performed By: #### 2 4323-8, , 2776-05 ####[facility] [place] LABCLIA [id number] [place] [address] [place] Potassium [Moles/Vol] 3.5 mmol/L Low 3.7-5.1 [facility] Comment on above: Order Comment: Speci men Type: BLOOD SPECIMENOrdering Facility: [facility] Address: [address] [place] [address] Performed By: #### 2 432-8, , 2776-05 ####[facility] [place] LABCLIA [id number] [place] [address] [place] Protein [Mass/Vol] 3.8 g/dL Low 6.3-8.0 [facility] Comment on above: Order Comment: Speci men Type: BLOOD SPECIMENOrdering Facility: [facility] Address: [address] [place] [address] Performed By: #### 2 8, , 2776-05 ####[facility] LABCLIA [id number] [place] [address] [place] Sodium [Moles/Vol] 139 mmol/L Normal 136-144 [facility] Comment on above: Order Comment: Speci men Type: BLOOD SPECIMENOrdering Facility: [facility] Address: [address] [place] [address] Performed By: #### 2 4328, , 2776-05 ####[facility] [place] LABCLIA [id number] [address] [address] [place] Urea nitrogen [Mass/Vol] 84 mg/dL High 9-24 [facility] Comment on above: Order Comment: Speci men Type: BLOOD SPECIMENOrdering Facility: [facility] Address: [address] [place] [address] Performed By: #### 2 4323-8, , 2776-05 ####[facility] [place] LABCLIA [id number] [address] [place] [facility] Magnesium [Mass/Vol] 1.6 mg/dL Low 1.7-2.3 [facility] Comment on above: Order Comment: Speci men Type: BLOOD SPECIMENOrdering Facility: [facility] Address: [address] [place] [address] Performed By: #### 2 4323-8, , 2776-05 ####[facility] [place] LABCLIA [id number] [place] [address] [place] Phosphate SerPl-mCncon 08-07 Phosphate [Mass/Vol] 3.4 mg/dL Normal 2.7-4.8 [facility] Comment on above: Order Comment: Speci men Type: BLOOD SPECIMENOrdering Facility: [facility] Address: [address] [place] [address] Performed By: #### 2 4323-8, , 2776-05 ####[facility] LABCLIA [id number] [place] [address] [place] THERAPY NTon 08-07-2022 THERAPY NT Normal [facility] TYPE + SCREENon 08-07-2022 ABO B Normal [facility] Comment on above: Order Comment: Speci men Type: BLOOD SPECIMENOrdering Facility: [facility] Address: [address] [place] [address] Performed By: #### T SCR ####[facility] BLOOD BANKCLIA [id number] [address] [place] HISTORICAL AB SCR STATUS Negative Normal [facility] Comment on above: Order Comment: Speci men Type: BLOOD SPECIMENOrdering Facility: [facility] Address: [address] [place] [address] Performed By: #### T SCR ####CC [facility] BLOOD BANKCLIA [id number] [address] OF [facility] Rh Nom (Bld) Positive Normal [facility] Comment on above: Order Comment: Speci men Type: BLOOD SPECIMENOrdering Facility: [facility] Address: [address] [place] [address] Performed By: #### T SCR ####[facility] BLOOD BANKIA [id number] [address] TYPE AND SCREEN EXPIRATION 08/10/2022 23:59 Normal [facility] Comment on above: Order Comment: Speci men Type: BLOOD SPECIMENOrdering Facility: [facility] Address: [address] [place], [place] [address] Performed By: #### T SCR ####[facility] BLOOD BANKCLIA [id number] [address] [place] CASE MANAGEMon 08-06-2022 CASE MANAGEM Normal [facility] CBC W Auto Differential pane l (Bld)on 08-06-2022 Basophils (Bld) [#/Vol] 0.03 10*3/uL Normal <0.11 [facility] Comment on above: Order Comment: Speci men Type: BLOOD SPECIMENOrdering Facility: [facility] Address: [address] [place], [place] [address] Performed By: #### 5 7021-8 ####[facility] LABCLIA [id number] [address] Basophils/100 WBC (Bld) 0.6 % Normal [facility] Comment on above: Order Comment: Speci men Type: BLOOD SPECIMENOrdering Facility: [facility] Address: [address] [place], [place] [address] Performed By: #### 5 7021-8 ####[facility] LABCLIA [id number] [place] [address] [place] Differential cell count method Nom (Bld) Auto Normal [facility] Comment on above: Order Comment: Speci men Type: BLOOD SPECIMENOrdering Facility: [facility] Address: [address] [place], [place] [address] Performed By: #### 5 7021-8 ####[facility] LABCLIA [id number] [place] [address] [place] Eosinophils (Bld) [#/Vol] 0.30 10*3/uL Normal <0.46 [facility] Comment on above: Order Comment: Speci men Type: BLOOD SPECIMENOrdering Facility: [facility] Address: [address] [place], [place] [address] Performed By: #### 5 7021-8 ####[facility] LABIA [id number] [address] [place] Eosinophils/100 WBC (Bld) 5.8 % Normal [facility] Comment on above: Order Comment: Speci men Type: BLOOD SPECIMENOrdering Facility: [facility] Address: [address] [place] [place] [address] Performed By: #### 5 7021-8 ####[facility] LABIA [id number] [place] [address] [place] Erythrocyte distribution width (RBC) [Ratio] 15.8 % High 11.5-15.0 [facility] Comment on above: Order Comment: Speci men Type: BLOOD SPECIMENOrdering Facility: [facility] Address: [address] [place] [place] [address] Performed By: #### 5 7021-8 ####[facility] LABIA [id number] [place] [address] [place] Hematocrit (Bld) [Volume fraction] 25.8 % Low 39.0-51.0 [facility] Comment on above: Order Comment: Speci men Type: BLOOD SPECIMENOrdering Facility: [facility] Address: [address] [place] [address] Performed By: #### 5 7021-8 ####[facility] LABCLIA [id number] [place] [address] [place] Hemoglobin (Bld) [Mass/Vol] 8.3 g/dL Low 13.0-17.0 [facility] Comment on above: Order Comment: Speci men Type: BLOOD SPECIMENOrdering Facility: [facility] Address: [address] [place] [address] Performed By: #### 5 7021-8 ####[facility] LABCLIA [id number] [place] [address] [place] Immature granulocytes (Bld) [#/Vol] 0.06 10*3/uL Normal <0.10 [facility] Comment on above: Order Comment: Speci men Type: BLOOD SPECIMENOrdering Facility: [facility] Address: [address] [place], [place] [address] Performed By: #### 5 7021-8 ####[facility] LABIA [id number] [place] [address] [place] Immature granulocytes/100 WBC (Bld) 1.2 % Normal [facility] Comment on above: Order Comment: Speci men Type: BLOOD SPECIMENOrdering Facility: [facility] Address: [address] [place], [place] [address] Performed By: #### 5 7021-8 ####[facility] LABIA [id number] [place] [address] [place] Lymphocytes (Bld) [#/Vol] 0.54 10*3/uL Low 1.00-4.00 [facility] Comment on above: Order Comment: Speci men Type: BLOOD SPECIMENOrdering Facility: [facility] Address: [address] Performed By: #### 5 7021-8 ####[facility] LABIA [id number] [address] [place] Lymphocytes/100 WBC (Bld) 10.5 % Normal [facility] Comment on above: Order Comment: Speci men Type: BLOOD SPECIMENOrdering Facility: [facility] Address: [address] [place], [place] [address] Performed By: #### 5 7021-8 ####[facility] LABIA [id number] [place] [address] [place] MCH (RBC) [Entitic mass] 29.1 pg Normal 26.0-34.0 [facility] Comment on above: Order Comment: Speci men Type: BLOOD SPECIMENOrdering Facility: [facility] Address: [address] [place], [place] [address] Performed By: #### 5 7021-8 ####[facility] LABIA [id number] [place] [address] [place] MCHC (RBC) [Mass/Vol] 32.2 g/dL Normal 30.5-36.0 [facility] Comment on above: Order Comment: Speci men Type: BLOOD SPECIMENOrdering Facility: [facility] Address: [address] [place], [place] [address] Performed By: #### 5 7021-8 ####[facility] LABIA [id number] [place] [address] [place] MCV (RBC) [Entitic vol] 90.5 fL Normal 80.0-100.0 [facility] Comment on above: Order Comment: Speci men Type: BLOOD SPECIMENOrdering Facility: [facility] Address: [address] [place], [place] [address] Performed By: #### 5 7021-8 ####[facility] LABIA [id number] [place] [address] [place] Monocytes (Bld) [#/Vol] 0.48 10*3/uL Normal <0.87 [facility] Comment on above: Order Comment: Speci men Type: BLOOD SPECIMENOrdering Facility: [facility] Address: [address] [address] Performed By: #### 5 7021-8 ####[facility] LABCLIA [id number] [place] [address] [place] Monocytes/100 WBC (Bld) 9.3 % Normal [facility] Comment on above: Order Comment: Speci men Type: BLOOD SPECIMENOrdering Facility: [facility] Address: [address] [address] Performed By: #### 5 7021-8 ####[facility] LABCLIA [id number] [place] [address] [place] Neutrophils (Bld) [#/Vol] 3.74 10*3/uL Normal 1.45-7.50 [facility] Comment on above: Order Comment: Speci men Type: BLOOD SPECIMENOrdering Facility: [facility] Address: [address] Performed By: #### 5 7021-8 ####[facility] LABCLIA [id number] [place] [address] [place] Neutrophils/100 WBC (Bld) 72.6 % Normal [facility] Comment on above: Order Comment: Speci men Type: BLOOD SPECIMENOrdering Facility: [facility] Address: [address] Performed By: #### 5 7021-8 ####[facility] LABCLIA [id number] [place] [address] [place] Nucleated RBC (Bld) [#/Vol] 10*3/uL Normal <0.01 [facility] Comment on above: Order Comment: Speci men Type: BLOOD SPECIMENOrdering Facility: [facility] Address: [address] Performed By: #### 5 7021-8 ####[facility] LABIA [id number] [place] [address] [place] Nucleated RBC/100 WBC (Bld) [Ratio] 0.0 /100 WBC Normal [facility] Comment on above: Order Comment: Speci men Type: BLOOD SPECIMENOrdering Facility: [facility] Address: [address] Performed By: #### 5 7021-8 ####[facility] [place] LABIA [id number] [place] [address] [place] Platelet mean volume (Bld) [Entitic vol] 10.0 fL Normal 9.0-12.7 [facility] Comment on above: Order Comment: Speci men Type: BLOOD SPECIMENOrdering Facility: [facility] Address: [address] Performed By: #### 5 7021-8 ####[facility] [place] LABIA [id number] [place] [address] [place] Platelets (Bld) [#/Vol] 136 10*3/uL Low 150-400 [facility] Comment on above: Order Comment: Speci men Type: BLOOD SPECIMENOrdering Facility: [facility] Address: [address] [place] [address] Performed By: #### 5 7021-8 ####[facility] [place] LABIA [id number] [place] [address] [place] RBC (Bld) [#/Vol] 2.85 10*6/uL Low 4.20-6.00 [facility] Comment on above: Order Comment: Speci men Type: BLOOD SPECIMENOrdering Facility: [facility] Address: [address] Performed By: #### 5 7021-8 ####[facility] [place] LABCLIA [id number] [place] [address] [place] WBC (Bld) [#/Vol] 5.15 10*3/uL Normal 3.70-11.00 [facility] Comment on above: Order Comment: Speci men Type: BLOOD SPECIMENOrdering Facility: [facility] Address: [address] [place], [place] [address] Performed By: #### 5 7021-8 ####[facility] [place] LABCLIA [id number] [place] [address] [place] Basophils (Bld) [#/Vol] 10*3/uL Normal <0.11 [facility] Comment on above: Order Comment: Speci men Type: BLOOD SPECIMENOrdering Facility: [facility] Address: [address] [place], [place] [address] Performed By: #### 5 7021-8 ####[facility] [place] LABIA [id number] [place] [address] [place] Basophils/100 WBC (Bld) 0.4 % Normal [facility] Comment on above: Order Comment: Speci men Type: BLOOD SPECIMENOrdering Facility: [facility] Address: [address] [place], [place] [address] Performed By: #### 5 7021-8 ####[facility] [place] LABIA [id number] [place] [address] [place] Differential cell count method Nom (Bld) Auto Normal [facility] Comment on above: Order Comment: Speci men Type: BLOOD SPECIMENOrdering Facility: [facility] Address: [address] [place], [place] [address] Performed By: #### 5 7021-8 ####[facility] [place] LABCLIA [id number] [place] [address] [place] Eosinophils (Bld) [#/Vol] 0.29 10*3/uL Normal <0.46 [facility] Comment on above: Order Comment: Speci men Type: BLOOD SPECIMENOrdering Facility: [facility] Address: [address] [place], [place] [address] Performed By: #### 5 7021-8 ####[facility] [place] LABCLIA [id number] [place] [address] [place] Eosinophils/100 WBC (Bld) 5.7 % Normal [facility] Comment on above: Order Comment: Speci men Type: BLOOD SPECIMENOrdering Facility: [facility] Address: [address] [place], [place] [address] Performed By: #### 5 7021-8 ####[facility] [place] LABIA [id number] [place] [address] [place] Erythrocyte distribution width (RBC) [Ratio] 15.9 % High 11.5-15.0 [facility] Comment on above: Order Comment: Speci men Type: BLOOD SPECIMENOrdering Facility: [facility] Address: [address] [place], [place] [address] Performed By: #### 5 7021-8 ####[facility] [place] LABIA [id number] [place] [address] [place] Hematocrit (Bld) [Volume fraction] 25.9 % Low 39.0-51.0 [facility] Comment on above: Order Comment: Speci men Type: BLOOD SPECIMENOrdering Facility: [facility] Address: [address] [place], [place] [address] Performed By: #### 5 7021-8 ####[facility] [place] LABIA [id number] [place] [address] [place] Hemoglobin (Bld) [Mass/Vol] 8.5 g/dL Low 13.0-17.0 [facility] Comment on above: Order Comment: Speci men Type: BLOOD SPECIMENOrdering Facility: [facility] Address: [address] [place], [place] [address] Performed By: #### 5 7021-8 ####[facility] [place] LABCLIA [id number] [place] [address] [place] Immature granulocytes (Bld) [#/Vol] 0.05 10*3/uL Normal <0.10 [facility] Comment on above: Order Comment: Speci men Type: BLOOD SPECIMENOrdering Facility: [facility] Address: [address] [place], [place] [address] Performed By: #### 5 7021-8 ####[facility] [place] LABCLIA [id number] [address] STATES [facility] Immature granulocytes/100 WBC (Bld) 1.0 % Normal [facility] Comment on above: Order Comment: Speci men Type: BLOOD SPECIMENOrdering Facility: [facility] Address: [address] [place], [place] [address] Performed By: #### 5 7021-8 ####[facility] [place] LABIA [id number] [address] [place] Lymphocytes (Bld) [#/Vol] 0.57 10*3/uL Low 1.00-4.00 [facility] Comment on above: Order Comment: Speci men Type: BLOOD SPECIMENOrdering Facility: [facility] Address: [address] [place] [address] Performed By: #### 5 7021-8 ####[facility] [place] LABCLIA [id number] [address] [place] Lymphocytes/100 WBC (Bld) 11.1 % Normal [facility] Comment on above: Order Comment: Speci men Type: BLOOD SPECIMENOrdering Facility: [facility] Address: [address] [place] [place] [address] Performed By: #### 5 7021-8 ####[facility] [place] LABIA [id number] [place] [address] [place] MCH (RBC) [Entitic mass] 29.5 pg Normal 26.0-34.0 [facility] Comment on above: Order Comment: Speci men Type: BLOOD SPECIMENOrdering Facility: [facility] Address: [address] [place] [address] Performed By: #### 5 7021-8 ####[facility] [place] LABCLIA [id number] [place] [address] [place] MCHC (RBC) [Mass/Vol] 32.8 g/dL Normal 30.5-36.0 [facility] Comment on above: Order Comment: Speci men Type: BLOOD SPECIMENOrdering Facility: [facility] Address: [address] [place] [address] Performed By: #### 5 7021-8 ####[facility] [place] LABCLIA [id number] [place] [address] [place] MCV (RBC) [Entitic vol] 89.9 fL Normal 80.0-100.0 [facility] Comment on above: Order Comment: Speci men Type: BLOOD SPECIMENOrdering Facility: [facility] Address: [address] [place], [place] [address] Performed By: #### 5 7021-8 ####[facility] [place] LABCLIA [id number] [place] [address] [place] Monocytes (Bld) [#/Vol] 0.51 10*3/uL Normal <0.87 [facility] Comment on above: Order Comment: Speci men Type: BLOOD SPECIMENOrdering Facility: [facility] Address: [address] [place], [place] [address] Performed By: #### 5 7021-8 ####[facility] [place] LABCLIA [id number] [place] [address] [place] Monocytes/100 WBC (Bld) 10.0 % Normal [facility] Comment on above: Order Comment: Speci men Type: BLOOD SPECIMENOrdering Facility: [facility] Address: [address] Performed By: #### 5 7021-8 ####[facility] [place] LABCLIA [id number] [place] [address] [place] Neutrophils (Bld) [#/Vol] 3.68 10*3/uL Normal 1.45-7.50 [facility] Comment on above: Order Comment: Speci men Type: BLOOD SPECIMENOrdering Facility: [facility] Address: [address] Performed By: #### 5 7021-8 ####[facility] [place] LABCLIA [id number] [place] [address] [place] Neutrophils/100 WBC (Bld) 71.8 % Normal [facility] Comment on above: Order Comment: Speci men Type: BLOOD SPECIMENOrdering Facility: [facility] Address: [address] [place], [place] [address] Performed By: #### 5 7021-8 ####[facility] [place] LABCLIA [id number] [place] [address] [place] Nucleated RBC (Bld) [#/Vol] 10*3/uL Normal <0.01 [facility] Comment on above: Order Comment: Speci men Type: BLOOD SPECIMENOrdering Facility: [facility] Address: [address] [place], [place] [address] Performed By: #### 5 7021-8 ####[facility] [place] LABCLIA [id number] [place] [address] [place] Nucleated RBC/100 WBC (Bld) [Ratio] 0.0 /100 WBC Normal [facility] Comment on above: Order Comment: Speci men Type: BLOOD SPECIMENOrdering Facility: [facility] Address: [address] [place], [place] [address] Performed By: #### 5 7021-8 ####[facility] [place] LABCLIA [id number] [place] [address] [place] Platelet mean volume (Bld) [Entitic vol] 10.0 fL Normal 9.0-12.7 [facility] Comment on above: Order Comment: Speci men Type: BLOOD SPECIMENOrdering Facility: [facility] Address: [address] [place], [place] [address] Performed By: #### 5 7021-8 ####[facility] [place] LABCLIA [id number] [place] [address] [place] Platelets (Bld) [#/Vol] 131 10*3/uL Low 150-400 [facility] Comment on above: Order Comment: Speci men Type: BLOOD SPECIMENOrdering Facility: [facility] Address: [address] [place], [place] [address] Performed By: #### 5 7021-8 ####[facility] [place] LABCLIA [id number] [place] [address] [place] RBC (Bld) [#/Vol] 2.88 10*6/uL Low 4.20-6.00 [facility] Comment on above: Order Comment: Speci men Type: BLOOD SPECIMENOrdering Facility: [facility] Address: [address] [place], [place] [address] Performed By: #### 5 7021-8 ####[facility] [place] LABCLIA [id number] [place] [address] [place] WBC (Bld) [#/Vol] 5.12 10*3/uL Normal 3.70-11.00 [facility] Comment on above: Order Comment: Speci men Type: BLOOD SPECIMENOrdering Facility: [facility] Address: [address] [place] [place] [address] Performed By: #### 5 7021-8 ####[facility] [place] LABCLIA [id number] [place] [address] [place] CONSULT PROGon 08-06-2022 CONSULT PROG Normal [facility] metabolic 2000 panelon 08-06-2022 Albumin [Mass/Vol] 2.1 g/dL Low 3.9-4.9 [facility] Comment on above: Order Comment: Speci men Type: BLOOD SPECIMENOrdering Facility: [facility] Address: [address] [place] [address] Performed By: #### 2 4323-8, 34501-2, 2776- ####[facility] [place] LABCLIA [id number] [place] [address] [place] ALP [Catalytic activity/Vol] 22 U/L Low 38-113 [facility] Comment on above: Order Comment: Speci men Type: BLOOD SPECIMENOrdering Facility: [facility] Address: [address] [place] [address] Performed By: #### 2 4323-8, , 2776-05 ####[facility] [place] LABCLIA [id number] [place] [address] [place] ALT [Catalytic activity/Vol] 18 U/L Normal 10-54 [facility] Comment on above: Order Comment: Speci men Type: BLOOD SPECIMENOrdering Facility: [facility] Address: [address] [place] [address] Performed By: #### 2 4323-8, , 2776-05 ####[facility] [place] LABCLIA [id number] [place] [address] [place] Anion gap [Moles/Vol] 10 mmol/L Normal 9-18 [facility] Comment on above: Order Comment: Speci men Type: BLOOD SPECIMENOrdering Facility: [facility] Address: [address] [place] [address] Performed By: #### 2 4323-8, , 2776-05 ####[facility] [place] LABCLIA [id number] [place] [address] [place] AST [Catalytic activity/Vol] 13 U/L Low 14-40 [facility] Comment on above: Order Comment: Speci men Type: BLOOD SPECIMENOrdering Facility: [facility] Address: [address] [place], [place] [address] Performed By: #### 2 4323-8, , 2776-05 ####[facility] [place] LABCLIA [id number] [place] [address] [place] Bilirubin [Mass/Vol] 0.4 mg/dL Normal 0.2-1.3 [facility] Comment on above: Order Comment: Speci men Type: BLOOD SPECIMENOrdering Facility: [facility] Address: [address] [place] [address] Performed By: #### 2 4323-8, , 2776-05 ####[facility] [place] LABCLIA [id number] [place] [address] [place] Calcium [Mass/Vol] 7.0 mg/dL Low 8.5-10.2 [facility] Comment on above: Order Comment: Speci men Type: BLOOD SPECIMENOrdering Facility: [facility] Address: [address] [place], [place] [address] Performed By: #### 2 4323-8, , 2776-05 ####[facility] [place] LABCLIA [id number] [place] [address] [place] Chloride [Moles/Vol] 103 mmol/L Normal 97-105 [facility] Comment on above: Order Comment: Speci men Type: BLOOD SPECIMENOrdering Facility: [facility] Address: [address] [place], [place] [address] Performed By: #### 2 4323-8, , 2776-05 ####[facility] [place] LABCLIA [id number] [place] [id number] [place] CO2 [Moles/Vol] 26 mmol/L Normal 22-30 [facility] Comment on above: Order Comment: Speci men Type: BLOOD SPECIMENOrdering Facility: [facility] Address: [address] [place] [address] Performed By: #### 2 4323-8, , 2776-05 ####[facility] [place] LABCLIA [id number] [place] [address] [place] Creatinine [Mass/Vol] 6.80 mg/dL High 0.73-1.22 [facility] Comment on above: Order Comment: Speci men Type: BLOOD SPECIMENOrdering Facility: [facility] Address: [address] [place] [address] Performed By: #### 2 4323-8, , 2776-05 ####[facility] [place] LABCLIA [id number] [place] [address] [place] ESTIMATED GLOMERULAR FILTRATION RATE 8 mL/min/1.73m??? Low >=60 [facility] Comment on above: Order Comment: Speci men Type: BLOOD SPECIMENOrdering Facility: [facility] Address: [address] [place] [address] Result Comment: Lamar mated Glomerular Filtration Rate (eGFR) is calculated using the 2020 CKD-EPI creatinine equation. This equation utilizes serum creatinine, sex, and age as parameters. The creatinine assay has traceable calibration to isotope dilution-mass spectrometry. Refer to KDIGO guidelines for clinical interpretation. In patients with unstable renal function, e.g. those with acute kidney injury, the eGFR may not accurately reflect actual GFR. Performed By: #### 2 4323-8, , 2776-05 ####[facility] [place] LABCLIA [id number] [place] [id number] [place] Glucose [Mass/Vol] 103 mg/dL High 74-99 [facility] Comment on above: Order Comment: Speci men Type: BLOOD SPECIMENOrdering Facility: [facility] Address: [address] Result Comment: The [place] [employer] (ADA) provides guidance for cutoff values for fasting glucose and random glucose. The ADA defines fasting as no caloric intake for at least 8 hours. Fasting plasma glucose results between 100 to 125 mg/dL indicate increased risk for diabetes (prediabetes).Fasting plasma glucose results greater than or equal to 126 mg/dL meet the criteria for diagnosis of diabetes. In the absence of unequivocal hyperglycemia, results should be confirmed by repeat testing. In a patient with classic symptoms of hyperglycemia or hyperglycemic crisis, random plasma glucose results greater than or equal to 200 mg/dL meet the criteria for diagnosis of diabetes.Reference: Standards of Medical Care in Diabetes 2016, [place] [employer]. Diabetes Care. 2016.39(Suppl 1). Performed By: #### 2 4323-8, , 2776-05 ####[facility] [place] LABCLIA [id number] [place] [address] [place] Potassium [Moles/Vol] 3.6 mmol/L Low 3.7-5.1 [facility] Comment on above: Order Comment: Speci men Type: BLOOD SPECIMENOrdering Facility: [facility] Address: [address] [place] [address] Performed By: #### 2 4323-8, , 2776-05 ####[facility] [place] LABIA [id number] [place] [address] [place] Protein [Mass/Vol] 3.9 g/dL Low 6.3-8.0 [facility] Comment on above: Order Comment: Speci men Type: BLOOD SPECIMENOrdering Facility: [facility] Address: [address] [place] [id number] Performed By: #### 2 4323-8, , 2776-05 ####[facility] [place] LABIA [id number] [place] [address] [place] Sodium [Moles/Vol] 139 mmol/L Normal 136-144 [facility] Comment on above: Order Comment: Speci men Type: BLOOD SPECIMENOrdering Facility: [facility] Address: [address] Performed By: #### 2 4323-8, , 2776-05 ####[facility] [place] LABCLIA [id number] [place] [address] [place] Urea nitrogen [Mass/Vol] 89 mg/dL High 9-24 [facility] Comment on above: Order Comment: Speci men Type: BLOOD SPECIMENOrdering Facility: [facility] Address: [place] Performed By: #### 2 4323-8, , 2776-05 ####[facility] [place] LABCLIA [id number] [place] [address] [place] Magnesium SerPl-mCncon 08-06 Magnesium [Mass/Vol] 1.7 mg/dL Normal 1.7-2.3 [facility] Comment on above: Order Comment: Speci men Type: BLOOD SPECIMENOrdering Facility: [facility] Address: [address] [place], [place] [address] Performed By: #### 2 4323-8, , 2776-05 ####[facility] [place] LABCLIA [id number] [place] [address] [place] NURSING PROGon 08-06-2022 NURSING PROG Normal [facility] Phosphate SerPl-mCncon 08-06 Phosphate [Mass/Vol] 3.4 mg/dL Normal 2.7-4.8 [facility] Comment on above: Order Comment: Speci men Type: BLOOD SPECIMENOrdering Facility: [facility] Address: [address] [place], [place] [address] Performed By: #### 2 4323-8, , 2776-05 ####[facility] [place] LABCLIA [id number] [place] [id number] [place] THERAPY NTon 08-06-2022 THERAPY NT Normal [facility] THERAPY NT Normal [facility] CBC W Auto Differential pane l (Bld)on 08-05-2022 Basophils (Bld) [#/Vol] 10*3/uL Normal <0.11 [facility] Comment on above: Order Comment: Speci men Type: BLOOD SPECIMENOrdering Facility: [facility] Address: [address] [place] [address] Performed By: #### 5 7021-8 ####[facility] LABCLIA [id number] [place] [address] [place] Basophils/100 WBC (Bld) 0.3 % Normal [facility] Comment on above: Order Comment: Speci men Type: BLOOD SPECIMENOrdering Facility: [facility] Address: [address] [place] [address] Performed By: #### 5 7021-8 ####[facility] LABCLIA [id number] [place] [address] [place] Differential cell count method Nom (Bld) Auto Normal [facility] Comment on above: Order Comment: Speci men Type: BLOOD SPECIMENOrdering Facility: [facility] Address: [address] [place] [address] Performed By: #### 5 7021-8 ####[facility] LABCLIA [id number] [place] [address] [place] Eosinophils (Bld) [#/Vol] 0.35 10*3/uL Normal <0.46 [facility] Comment on above: Order Comment: Speci men Type: BLOOD SPECIMENOrdering Facility: [facility] Address: [address] [place], [place] [address] Performed By: #### 5 7021-8 ####[facility] LABCLIA [id number] [place] [address] [place] Eosinophils/100 WBC (Bld) 6.0 % Normal [facility] Comment on above: Order Comment: Speci men Type: BLOOD SPECIMENOrdering Facility: [facility] Address: [address] Performed By: #### 5 7021-8 ####[facility] LABIA [id number] [place] [address] [place] Erythrocyte distribution width (RBC) [Ratio] 16.6 % High 11.5-15.0 [facility] Comment on above: Order Comment: Speci men Type: BLOOD SPECIMENOrdering Facility: [facility] Address: [address] Performed By: #### 5 7021-8 ####[facility] LABIA [id number] [place] [address] [place] Hematocrit (Bld) [Volume fraction] 22.1 % Low 39.0-51.0 [facility] Comment on above: Order Comment: Speci men Type: BLOOD SPECIMENOrdering Facility: [facility] Address: [address] [place], [place] [address] Performed By: #### 5 7021-8 ####[facility] LABIA [id number] [place] [address] [place] Hemoglobin (Bld) [Mass/Vol] 7.3 g/dL Low 13.0-17.0 [facility] Comment on above: Order Comment: Speci men Type: BLOOD SPECIMENOrdering Facility: [facility] Address: [address] [place], [place] [address] Performed By: #### 5 7021-8 ####[facility] LABIA [id number] [place] [address] [place] Immature granulocytes (Bld) [#/Vol] 0.05 10*3/uL Normal <0.10 [facility] Comment on above: Order Comment: Speci men Type: BLOOD SPECIMENOrdering Facility: [facility] Address: [address] [place], [place] [id number] Performed By: #### 5 7021-8 ####[facility] [place] LABCLIA [id number] [place] [address] [place] Immature granulocytes/100 WBC (Bld) 0.9 % Normal [facility] Comment on above: Order Comment: Speci men Type: BLOOD SPECIMENOrdering Facility: [facility] [facility] Address: [address] [place] [address] Performed By: #### 5 7021-8 ####[facility] [place] LABCLIA [id number] [place] [address] [place] Lymphocytes (Bld) [#/Vol] 0.59 10*3/uL Low 1.00-4.00 [facility] Comment on above: Order Comment: Speci men Type: BLOOD SPECIMENOrdering Facility: [facility] Address: [address] [place] [address] Performed By: #### 5 7021-8 ####[facility] [place] LABCLIA [id number] [place] [address] [place] Lymphocytes/100 WBC (Bld) 10.2 % Normal [facility] Comment on above: Order Comment: Speci men Type: BLOOD SPECIMENOrdering Facility: [facility] Address: [address] [place] [address] Performed By: #### 5 7021-8 ####[facility] [place] LABCLIA [id number] [place] [address] [place] MCH (RBC) [Entitic mass] 29.1 pg Normal 26.0-34.0 [facility] Comment on above: Order Comment: Speci men Type: BLOOD SPECIMENOrdering Facility: [facility] Address: [address] [place], [place] [address] Performed By: #### 5 7021-8 ####[facility] [place] LABCLIA [id number] [place] [address] [place] MCHC (RBC) [Mass/Vol] 33.0 g/dL Normal 30.5-36.0 [facility] Comment on above: Order Comment: Speci men Type: BLOOD SPECIMENOrdering Facility: [facility] Address: [address] [place], [place] [address] Performed By: #### 5 7021-8 ####[facility] [place] LABCLIA [id number] [place] [address] [place] MCV (RBC) [Entitic vol] 88.0 fL Normal 80.0-100.0 [facility] Comment on above: Order Comment: Speci men Type: BLOOD SPECIMENOrdering Facility: [facility] Address: [address] [place], [place] [address] Performed By: #### 5 7021-8 ####[facility] [place] LABIA [id number] [place] [address] [place] Monocytes (Bld) [#/Vol] 0.56 10*3/uL Normal <0.87 [facility] Comment on above: Order Comment: Speci men Type: BLOOD SPECIMENOrdering Facility: [facility] Address: [address] [place], [place] [address] Performed By: #### 5 7021-8 ####[facility] [place] LABCLIA [id number] [place] [address] [place] Monocytes/100 WBC (Bld) 9.6 % Normal [facility] Comment on above: Order Comment: Speci men Type: BLOOD SPECIMENOrdering Facility: [facility] Address: [address] [place], [place] [address] Performed By: #### 5 7021-8 ####[facility] [place] LABIA [id number] [place] [address] [place] Neutrophils (Bld) [#/Vol] 4.24 10*3/uL Normal 1.45-7.50 [facility] Comment on above: Order Comment: Speci men Type: BLOOD SPECIMENOrdering Facility: [facility] Address: [address] [place], [place] [address] Performed By: #### 5 7021-8 ####[facility] [place] LABCLIA [id number] [place] [address] [place] Neutrophils/100 WBC (Bld) 73.0 % Normal [facility] Comment on above: Order Comment: Speci men Type: BLOOD SPECIMENOrdering Facility: [facility] Address: [address] [place], [place] [address] Performed By: #### 5 7021-8 ####[facility] [place] LABCLIA [id number] [place] [address] [place] Nucleated RBC (Bld) [#/Vol] 10*3/uL Normal <0.01 [facility] Comment on above: Order Comment: Speci men Type: BLOOD SPECIMENOrdering Facility: [facility] Address: [address] [place], [place] [address] Performed By: #### 5 7021-8 ####[facility] [place] LABIA [id number] [place] [address] [place] Nucleated RBC/100 WBC (Bld) [Ratio] 0.0 /100 WBC Normal [facility] Comment on above: Order Comment: Speci men Type: BLOOD SPECIMENOrdering Facility: [facility] Address: [address] [place], [place] [address] Performed By: #### 5 7021-8 ####[facility] [place] LABIA [id number] [place] [address] [place] Platelet mean volume (Bld) [Entitic vol] 9.8 fL Normal 9.0-12.7 [facility] Comment on above: Order Comment: Speci men Type: BLOOD SPECIMENOrdering Facility: [facility] Address: [address] [place], [place] [address] Performed By: #### 5 7021-8 ####[facility] [place] LABIA [id number] [place] [address] [place] Platelets (Bld) [#/Vol] 125 10*3/uL Low 150-400 [facility] Comment on above: Order Comment: Speci men Type: BLOOD SPECIMENOrdering Facility: [facility] Address: [address] [place], [place] [address] Performed By: #### 5 7021-8 ####[facility] [place] LABCLIA [id number] [place] [address] [place] RBC (Bld) [#/Vol] 2.51 10*6/uL Low 4.20-6.00 [facility] Comment on above: Order Comment: Speci men Type: BLOOD SPECIMENOrdering Facility: [facility] Address: [address] [place], [place] [address] Performed By: #### 5 7021-8 ####[facility] [place] LABCLIA [id number] [place] [address] [place] WBC (Bld) [#/Vol] 5.81 10*3/uL Normal 3.70-11.00 [facility] Comment on above: Order Comment: Speci men Type: BLOOD SPECIMENOrdering Facility: [facility] Address: [address] [place], [place] [address] Performed By: #### 5 7021-8 ####[facility] [place] LABCLIA [id number] [place] [address] [place] CONSULT PROGon 08-05-2022 CONSULT PROG Normal [facility] Comprehensive metabolic 2000 panelon 08-05-2022 Albumin [Mass/Vol] 2.1 g/dL Low 3.9-4.9 [facility] Comment on above: Order Comment: Speci men Type: BLOOD SPECIMENOrdering Facility: [facility] Address: [address] [place], [place] [address] Performed By: #### 2 4323-8, 2777-1 ####[facility] [place] LABCLIA [id number] [place] [address] [place] ALP [Catalytic activity/Vol] 23 U/L Low 38-113 [facility] Comment on above: Order Comment: Speci men Type: BLOOD SPECIMENOrdering Facility: [facility] Address: [address] [place], [place] [address] Performed By: #### 2 4323-8, 277- ####[facility] [place] LABCLIA [id number] [place] [address] [place] ALT [Catalytic activity/Vol] 20 U/L Normal 10-54 [facility] Comment on above: Order Comment: Speci men Type: BLOOD SPECIMENOrdering Facility: [facility] Address: [address] [place], [place] [address] Performed By: #### 2 4323-8, 27711-15 ####[facility] [place] LABCLIA [id number] [place] [address] [place] Anion gap [Moles/Vol] 10 mmol/L Normal 9-18 [facility] Comment on above: Order Comment: Speci men Type: BLOOD SPECIMENOrdering Facility: [facility] Address: [address] [place], [place] [address] Performed By: #### 2 4323-8, 2776-05 ####[facility] [place] LABCLIA [id number] [address] [place] AST [Catalytic activity/Vol] 16 U/L Normal 14-40 [facility] Comment on above: Order Comment: Speci men Type: BLOOD SPECIMENOrdering Facility: [facility] Address: [address] [place], [place] [address] Performed By: #### 2 4323-8, 277- ####[facility] [place] LABCLIA [id number] [place] [address] [place] Bilirubin [Mass/Vol] 0.3 mg/dL Normal 0.2-1.3 [facility] Comment on above: Order Comment: Speci men Type: BLOOD SPECIMENOrdering Facility: [facility] Address: [address] Performed By: #### 2 4323-8, 2776-05 ####[facility] [place] LABCLIA [id number] [place] [address] [place] Calcium [Mass/Vol] 7.1 mg/dL Low 8.5-10.2 [facility] Comment on above: Order Comment: Speci men Type: BLOOD SPECIMENOrdering Facility: [facility] Address: [address] Performed By: #### 2 4323-8, 2776-05 ####[facility] [place] LABCLIA [id number] [place] [address] [place] Chloride [Moles/Vol] 107 mmol/L High 97-105 [facility] Comment on above: Order Comment: Speci men Type: BLOOD SPECIMENOrdering Facility: [facility] Address: [address] Performed By: #### 2 4323-8, 2776-05 ####[facility] [place] LABCLIA [id number] [place] [address] [place] CO2 [Moles/Vol] 26 mmol/L Normal 22-30 [facility] Comment on above: Order Comment: Speci men Type: BLOOD SPECIMENOrdering Facility: [facility] Address: [address] [place] [address] Performed By: #### 2 4323-8, 2776-05 ####[facility] [place] LABCLIA [id number] [place] [address] [place] Creatinine [Mass/Vol] 6.70 mg/dL High 0.73-1.22 [facility] Comment on above: Order Comment: Speci men Type: BLOOD SPECIMENOrdering Facility: [facility] Address: [address] Performed By: #### 2 4323-8, 7- ####[facility] [place] LABCLIA [id number] [place] [address] [place] [facility] ESTIMATED GLOMERULAR FILTRATION RATE 9 mL/min/1.73m??? Low >=60 [facility] Comment on above: Order Comment: Chayito hudson Type: BLOOD SPECIMENOrdering Facility: [facility] Address: [address] [place] [address] Result Comment: Lamar mated Glomerular Filtration Rate (eGFR) is calculated using the 2020 CKD-EPI creatinine equation. This equation utilizes serum creatinine, sex, and age as parameters. The creatinine assay has traceable calibration to isotope dilution-mass spectrometry. Refer to KDIGO guidelines for clinical interpretation. In patients with unstable renal function, e.g. those with acute kidney injury, the eGFR may not accurately reflect actual GFR. Performed By: #### 2 4323-8, 277- ####[facility] [id number] [address] OF [facility] Glucose [Mass/Vol] 98 mg/dL Normal 74-99 [facility] Comment on above: Order Comment: Chayito hudson Type: BLOOD SPECIMENOrdering Facility: [facility] Address: [address] [place] [address] Result Comment: The [place] [employer] (ADA) provides guidance for cutoff values for fasting glucose and random glucose. The ADA defines fasting as no caloric intake for at least 8 hours. Fasting plasma glucose results between 100 to 125 mg/dL indicate increased risk for diabetes (prediabetes).Fasting plasma glucose results greater than or equal to 126 mg/dL meet the criteria for diagnosis of diabetes. In the absence of unequivocal hyperglycemia, results should be confirmed by repeat testing. In a patient with classic symptoms of hyperglycemia or hyperglycemic crisis, random plasma glucose results greater than or equal to 200 mg/dL meet the criteria for diagnosis of diabetes.Reference: Standards of Medical Care in Diabetes 2016, [place] [employer]. Diabetes Care. 2016.39(Suppl 1). Performed By: #### 2 4323-8, 2777-1 ####[facility] [place] LABCLIA [id number] [place] [address] [place] Potassium [Moles/Vol] 3.5 mmol/L Low 3.7-5.1 [facility] Comment on above: Order Comment: Speci men Type: BLOOD SPECIMENOrdering Facility: [facility] Address: [address] Performed By: #### 2 4323-8, 277-1 ####[facility] [place] LABCLIA [id number] [place] [address] [place] Protein [Mass/Vol] 3.9 g/dL Low 6.3-8.0 [facility] Comment on above: Order Comment: Speci men Type: BLOOD SPECIMENOrdering Facility: [facility] Address: [address] [place] [address] Performed By: #### 2 4323-8, 2776- ####[facility] [place] LABCLIA [id number] [place] [address] [place] Sodium [Moles/Vol] 143 mmol/L Normal 136-144 [facility] Comment on above: Order Comment: Speci men Type: BLOOD SPECIMENOrdering Facility: [facility] Address: [address] [place], [place] [address] Performed By: #### 2 4323-8, 2776- ####[facility] [place] LABCLIA [id number] [place] [address] [place] Urea nitrogen [Mass/Vol] 92 mg/dL High 9-24 [facility] Comment on above: Order Comment: Speci men Type: BLOOD SPECIMENOrdering Facility: [facility] Address: [address] [place], [place] [address] Performed By: #### 2 4323-8, 2776- ####[facility] [place] LABCLIA [id number] [place] [address] [place] Phosphate SerPl-mCncon 08-05 Phosphate [Mass/Vol] 3.9 mg/dL Normal 2.7-4.8 [facility] Comment on above: Order Comment: Speci men Type: BLOOD SPECIMENOrdering Facility: [facility] Address: [address] [place] [address] Performed By: #### 2 4323-8, 2777-1 ####[facility] [place] LABCLIA [id number] [place] [address] [place] CASE MGT INIT ASSESon 2022 CASE MGT INIT ASSES Normal [facility] CBC W Auto Differential pane l (Bld)on 08-04-2022 Basophils (Bld) [#/Vol] 10*3/uL Normal <0.11 [facility] Comment on above: Order Comment: Speci men Type: BLOOD SPECIMENOrdering Facility: [facility] Address: [address] [place] [address] Performed By: #### 5 7021-8 ####[facility] [place] LABCLIA [id number] [place] [address] [place] Basophils/100 WBC (Bld) 0.3 % Normal [facility] Comment on above: Order Comment: Speci men Type: BLOOD SPECIMENOrdering Facility: [facility] Address: [address] [place] [address] Performed By: #### 5 7021-8 ####[facility] [place] LABCLIA [id number] [place] [address] [place] Differential cell count method Nom (Bld) Auto Normal [facility] Comment on above: Order Comment: Speci men Type: BLOOD SPECIMENOrdering Facility: [facility] Address: [address] [place] [address] Performed By: #### 5 7021-8 ####[facility] [place] LABCLIA [id number] [place] [address] [place] Eosinophils (Bld) [#/Vol] 0.40 10*3/uL Normal <0.46 [facility] Comment on above: Order Comment: Speci men Type: BLOOD SPECIMENOrdering Facility: [facility] Address: [address] [place], [place] [address] Performed By: #### 5 7021-8 ####[facility] [place] LABCLIA [id number] [place] [address] [place] Eosinophils/100 WBC (Bld) 5.4 % Normal [facility] Comment on above: Order Comment: Speci men Type: BLOOD SPECIMENOrdering Facility: [facility] Address: [address] [place], [place] [address] Performed By: #### 5 7021-8 ####[facility] [place] LABIA [id number] [place] [address] [place] Erythrocyte distribution width (RBC) [Ratio] 17.0 % High 11.5-15.0 [facility] Comment on above: Order Comment: Speci men Type: BLOOD SPECIMENOrdering Facility: [facility] Address: [address] [place], [place] [address] Performed By: #### 5 7021-8 ####[facility] LABIA [id number] [place] [address] [place] Hematocrit (Bld) [Volume fraction] 22.8 % Low 39.0-51.0 [facility] Comment on above: Order Comment: Speci men Type: BLOOD SPECIMENOrdering Facility: [facility] Address: [address] Performed By: #### 5 7021-8 ####[facility] [place] LABIA [id number] [place] [address] [place] Hemoglobin (Bld) [Mass/Vol] 7.5 g/dL Low 13.0-17.0 [facility] Comment on above: Order Comment: Speci men Type: BLOOD SPECIMENOrdering Facility: [facility] Address: [address] Performed By: #### 5 7021-8 ####[facility] [place] LABCLIA [id number] [address] [place] Immature granulocytes (Bld) [#/Vol] 0.04 10*3/uL Normal <0.10 [facility] Comment on above: Order Comment: Speci men Type: BLOOD SPECIMENOrdering Facility: [facility] Address: [address] [place], [place] [address] Performed By: #### 5 7021-8 ####[facility] [place] LABCLIA [id number] [address] [place] Immature granulocytes/100 WBC (Bld) 0.5 % Normal [facility] Comment on above: Order Comment: Speci men Type: BLOOD SPECIMENOrdering Facility: [facility] Address: [address] [place], [place] [address] Performed By: #### 5 7021-8 ####[facility] [place] LABIA [id number] [place] [address] [place] Lymphocytes (Bld) [#/Vol] 0.51 10*3/uL Low 1.00-4.00 [facility] Comment on above: Order Comment: Speci men Type: BLOOD SPECIMENOrdering Facility: [facility] Address: [address] [place], [place] [address] Performed By: #### 5 7021-8 ####[facility] [place] LABCLIA [id number] [place] [address] [place] Lymphocytes/100 WBC (Bld) 6.9 % Normal [facility] Comment on above: Order Comment: Speci men Type: BLOOD SPECIMENOrdering Facility: [facility] Address: [address] [place], [place] [address] Performed By: #### 5 7021-8 ####[facility] [place] LABCLIA [id number] [place] [address] [place] MCH (RBC) [Entitic mass] 29.2 pg Normal 26.0-34.0 [facility] Comment on above: Order Comment: Speci men Type: BLOOD SPECIMENOrdering Facility: [facility] Address: [address] [place] [address] Performed By: #### 5 7021-8 ####[facility] [place] LABCLIA [id number] [place] [address] [place] MCHC (RBC) [Mass/Vol] 32.9 g/dL Normal 30.5-36.0 [facility] Comment on above: Order Comment: Speci men Type: BLOOD SPECIMENOrdering Facility: [facility] Address: [address] [place] [address] Performed By: #### 5 7021-8 ####[facility] [place] LABCLIA [id number] [place] [address] [place] MCV (RBC) [Entitic vol] 88.7 fL Normal 80.0-100.0 [facility] Comment on above: Order Comment: Speci men Type: BLOOD SPECIMENOrdering Facility: [facility] Address: [address] [place], [place] [address] Performed By: #### 5 7021-8 ####[facility] [place] LABCLIA [id number] [place] [address] [place] Monocytes (Bld) [#/Vol] 0.55 10*3/uL Normal <0.87 [facility] Comment on above: Order Comment: Speci men Type: BLOOD SPECIMENOrdering Facility: [facility] Address: [address] [place], [place] [address] Performed By: #### 5 7021-8 ####[facility] [place] LABCLIA [id number] [address] [place] Monocytes/100 WBC (Bld) 7.5 % Normal [facility] Comment on above: Order Comment: Speci men Type: BLOOD SPECIMENOrdering Facility: [facility] Address: [address] Performed By: #### 5 7021-8 ####[facility] LABCLIA [id number] [place] [address] [place] Neutrophils (Bld) [#/Vol] 5.83 10*3/uL Normal 1.45-7.50 [facility] Comment on above: Order Comment: Speci men Type: BLOOD SPECIMENOrdering Facility: [facility] Address: [address] Performed By: #### 5 7021-8 ####[facility] LABCLIA [id number] [place] [address] [place] Neutrophils/100 WBC (Bld) 79.4 % Normal [facility] Comment on above: Order Comment: Speci men Type: BLOOD SPECIMENOrdering Facility: [facility] Address: [address] Performed By: #### 5 7021-8 ####[facility] LABCLIA [id number] [place] [address] [place] Nucleated RBC (Bld) [#/Vol] 10*3/uL Normal <0.01 [facility] Comment on above: Order Comment: Speci men Type: BLOOD SPECIMENOrdering Facility: [facility] Address: [address] Performed By: #### 5 7021-8 ####[facility] LABCLIA [id number] [place] [address] [place] Nucleated RBC/100 WBC (Bld) [Ratio] 0.0 /100 WBC Normal [facility] Comment on above: Order Comment: Speci men Type: BLOOD SPECIMENOrdering Facility: [facility] Address: [address] [place], [place] [address] Performed By: #### 5 7021-8 ####[facility] LABCLIA [id number] [place] [address] [place] Platelet mean volume (Bld) [Entitic vol] 10.1 fL Normal 9.0-12.7 [facility] Comment on above: Order Comment: Speci men Type: BLOOD SPECIMENOrdering Facility: [facility] Address: [address] [place], [place] [address] Performed By: #### 5 7021-8 ####[facility] LABCLIA [id number] [place] [address] [place] Platelets (Bld) [#/Vol] 116 10*3/uL Low 150-400 [facility] Comment on above: Order Comment: Speci men Type: BLOOD SPECIMENOrdering Facility: [facility] Address: [address] [place], [place] [id number] Performed By: #### 5 7021-8 ####[facility] [place] LABIA [id number] [place] [address] [place] RBC (Bld) [#/Vol] 2.57 10*6/uL Low 4.20-6.00 [facility] Comment on above: Order Comment: Speci men Type: BLOOD SPECIMENOrdering Facility: [facility] Address: [address] [place], [place] [id number] Performed By: #### 5 7021-8 ####[facility] [place] LABIA [id number] [place] [address] [place] WBC (Bld) [#/Vol] 7.35 10*3/uL Normal 3.70-11.00 [facility] Comment on above: Order Comment: Speci men Type: BLOOD SPECIMENOrdering Facility: [facility] Address: [address] [place], [place] [address] Performed By: #### 5 7021-8 ####[facility] LABCLIA [id number] [place] [address] [place] CONSULT PROGon 08-04-2022 CONSULT PROG Normal [facility] CRP SerPl-mCncon 08-04-2022 CRP [Mass/Vol] 7.8 mg/dL High <0.9 [facility] Comment on above: Order Comment: Speci men Type: BLOOD SPECIMENOrdering Facility: [facility] Address: [address] [place] [address] Performed By: #### 1 988-5, 30919-2, 59083-2, 7-1 ####[facility] [place] LABCLIA [id number] [place] [address] [facility] Comprehensive metabolic 2000 panelon 08-04-2022 Albumin [Mass/Vol] 2.5 g/dL Low 3.9-4.9 [facility] Comment on above: Order Comment: Speci men Type: BLOOD SPECIMENOrdering Facility: [facility] Address: [address] [place] [address] Performed By: #### 1 988-5, 89252-1, 84550-4, 277- ####[facility] [place] LABCLIA [id number] [place] [address] [place] ALP [Catalytic activity/Vol] 23 U/L Low 38-113 [facility] Comment on above: Order Comment: Speci men Type: BLOOD SPECIMENOrdering Facility: [facility] Address: [address] [place], [place] [address] Performed By: #### 1 988-5, 78059-2, 63386-3, 277- ####[facility] [place] LABCLIA [id number] [address] [place] ALT [Catalytic activity/Vol] 23 U/L Normal 10-54 [facility] Comment on above: Order Comment: Speci men Type: BLOOD SPECIMENOrdering Facility: [facility] Address: [address] [place] [address] Performed By: #### 1 988-5, 33368-6, 26720-0, 2777-1 ####[facility] [place] LABCLIA [id number] [place] [address] [place] Anion gap [Moles/Vol] 12 mmol/L Normal 9-18 [facility] Comment on above: Order Comment: Speci men Type: BLOOD SPECIMENOrdering Facility: [facility] Address: [address] [place] [address] Performed By: #### 1 988-5, 86250-2, 74734-9, 2776- ####[facility] [place] LABCLIA [id number] [place] [address] [place] AST [Catalytic activity/Vol] 22 U/L Normal 14-40 [facility] Comment on above: Order Comment: Speci men Type: BLOOD SPECIMENOrdering Facility: [facility] Address: [address] [place] [address] Performed By: #### 1 988-5, 61161-4, , 2776-05 ####[facility] [place] LABIA [id number] [place] [address] [place] Bilirubin [Mass/Vol] 0.3 mg/dL Normal 0.2-1.3 [facility] Comment on above: Order Comment: Speci men Type: BLOOD SPECIMENOrdering Facility: [facility] Address: [address] [place] [address] Performed By: #### 1 988-5, 39431-5, , 2776-05 ####[facility] [place] LABCLIA [id number] [place] [address] [place] Calcium [Mass/Vol] 7.2 mg/dL Low 8.5-10.2 [facility] Comment on above: Order Comment: Speci men Type: BLOOD SPECIMENOrdering Facility: [facility] Address: [address] [place] [address] Performed By: #### 1 988-5, 79256-4, 48951-1, 2776-05 ####[facility] [place] LABCLIA [id number] [place] [address] [place] Chloride [Moles/Vol] 109 mmol/L High 97-105 [facility] Comment on above: Order Comment: Speci men Type: BLOOD SPECIMENOrdering Facility: [facility] Address: [address] [place] [address] Performed By: #### 1 988-5, 20620-2, 70403-9, 2776-05 ####[facility] [place] LABCLIA [id number] [place] [address] [place] CO2 [Moles/Vol] 24 mmol/L Normal 22-30 [facility] Comment on above: Order Comment: Speci men Type: BLOOD SPECIMENOrdering Facility: [facility] Address: [address] [place] [address] Performed By: #### 1 988-5, 07808-9, , 2776-05 ####[facility] [place] LABCLIA [id number] [place] [address] [place] Creatinine [Mass/Vol] 7.01 mg/dL High 0.73-1.22 [facility] Comment on above: Order Comment: Speci men Type: BLOOD SPECIMENOrdering Facility: [facility] Address: [address] [place] [address] Performed By: #### 1 988-5, 96769-5, , 2776-05 ####[facility] [place] LABCLIA [id number] [place] [address] [place] ESTIMATED GLOMERULAR FILTRATION RATE 8 mL/min/1.73m??? Low >=60 [facility] Comment on above: Order Comment: Speci men Type: BLOOD SPECIMENOrdering Facility: [facility] Address: [address] [place] [address] Result Comment: Lamar mated Glomerular Filtration Rate (eGFR) is calculated using the 2020 CKD-EPI creatinine equation. This equation utilizes serum creatinine, sex, and age as parameters. The creatinine assay has traceable calibration to isotope dilution-mass spectrometry. Refer to KDIGO guidelines for clinical interpretation. In patients with unstable renal function, e.g. those with acute kidney injury, the eGFR may not accurately reflect actual GFR. Performed By: #### 1 988-5, 05638-5, , 2776-05 ####[facility] [place] LABCLIA [id number] [place] [address] [place] Glucose [Mass/Vol] 112 mg/dL High 74-99 [facility] Comment on above: Order Comment: Chayito hudson Type: BLOOD SPECIMENOrdering Facility: [facility] Address: [address] [address] Result Comment: The [place] Diabetes Association (ADA) provides guidance for cutoff values for fasting glucose and random glucose. The ADA defines fasting as no caloric intake for at least 8 hours. Fasting plasma glucose results between 100 to 125 mg/dL indicate increased risk for diabetes (prediabetes).Fasting plasma glucose results greater than or equal to 126 mg/dL meet the criteria for diagnosis of diabetes. In the absence of unequivocal hyperglycemia, results should be confirmed by repeat testing. In a patient with classic symptoms of hyperglycemia or hyperglycemic crisis, random plasma glucose results greater than or equal to 200 mg/dL meet the criteria for diagnosis of diabetes.Reference: Standards of Medical Care in Diabetes 2016, [place] [employer] Association. Diabetes Care. 2016.39(Suppl 1). Performed By: #### 1 988-5, 36813-6, , 2776-05 ####[facility] [place] LABCLIA [id number] [place] [id number] [place] Potassium [Moles/Vol] 3.5 mmol/L Low 3.7-5.1 [facility] Comment on above: Order Comment: Chayito hudson Type: BLOOD SPECIMENOrdering Facility: [facility] Address: [address] [address] Performed By: #### 1 988-5, 52925-0, , 2776-05 ####[facility] [place] LABIA [id number] [place] [id number] [place] Protein [Mass/Vol] 4.0 g/dL Low 6.3-8.0 [facility] Comment on above: Order Comment: Speci men Type: BLOOD SPECIMENOrdering Facility: [facility] Address: [address] [place] [address] Performed By: #### 1 988-5, 79389-7, 42383-7, 2776- ####[facility] [place] LABIA [id number] [place] [address] [place] Sodium [Moles/Vol] 145 mmol/L High 136-144 [facility] Comment on above: Order Comment: Speci men Type: BLOOD SPECIMENOrdering Facility: [facility] Address: [address] [place] [address] Performed By: #### 1 988-5, 64721-8, , 2776- ####[facility] [id number] [place] [address] [place] Urea nitrogen [Mass/Vol] 96 mg/dL High 9-24 [facility] Comment on above: Order Comment: Speci men Type: BLOOD SPECIMENOrdering Facility: [facility] Address: [address] [place], [place] [address] Performed By: #### 1 988-5, 33241-4, , 277- ####[facility] LABIA [id number] [place] [id number] [place] Magnesium SerPl-mCncon 08-04 Magnesium [Mass/Vol] 1.8 mg/dL Normal 1.7-2.3 [facility] Comment on above: Order Comment: Speci men Type: BLOOD SPECIMENOrdering Facility: [facility] Address: [address] [place], [place] [address] Performed By: #### 1 988-5, 45205-8, 96140-4, 2777-1 ####[facility] [place] LABCLIA [id number] [place] [address] [place] Phosphate SerPl-mCncon 08-04 Phosphate [Mass/Vol] 4.6 mg/dL Normal 2.7-4.8 [facility] Comment on above: Order Comment: Speci men Type: BLOOD SPECIMENOrdering Facility: [facility] Address: [address] [place] [address] Performed By: #### 1 988-5, 19199-5, 10839-0, 2777- ####[facility] LABCLIA [id number] [address] [place] THERAPY NTon 08-04-2022 THERAPY NT Normal [facility] THERAPY NT Normal [facility] TYPE + SCREENon 08-04-2022 ABO B Normal [facility] Comment on above: Order Comment: Speci men Type: BLOOD SPECIMENOrdering Facility: [facility] Address: [address] [place] [address] Performed By: #### T SCR ####CC [facility] BLOOD BANKCLIA [id number] [place] [address] [place] HISTORICAL AB SCR STATUS Negative Normal [facility] Comment on above: Order Comment: Speci men Type: BLOOD SPECIMENOrdering Facility: [facility] Address: [address] [place] [address] Performed By: #### T SCR ####CC MAIN BLOOD BANKCLIA [id number] [place] [address] [place] Rh Nom (Bld) Positive Normal [facility] Comment on above: Order Comment: Speci men Type: BLOOD SPECIMENOrdering Facility: [facility] Address: [address] [place] [address] Performed By: #### T SCR ####CC MAIN BLOOD BANKCLIA [id number] [address] STATES OF [facility] TYPE AND SCREEN EXPIRATION 08/07/2022 23:59 Normal [facility] Comment on above: Order Comment: Speci men Type: BLOOD SPECIMENOrdering Facility: [facility] Address: [address] [place] [address] Performed By: #### T SCR ####CC [facility] BLOOD BANKIA [id number] [place] [address] [place] CBC W Auto Differential pane l (Bld)on 08-03-2022 Basophils (Bld) [#/Vol] 0.03 10*3/uL Normal <0.11 [facility] Comment on above: Order Comment: Speci men Type: BLOOD SPECIMENOrdering Facility: [facility] Address: [address] [place] [address] Performed By: #### 5 7021-8 ####[facility] LABCLIA [id number] [address] [place] Basophils/100 WBC (Bld) 0.3 % Normal [facility] Comment on above: Order Comment: Speci men Type: BLOOD SPECIMENOrdering Facility: [facility] Address: [address] [place] [address] Performed By: #### 5 7021-8 ####[facility] LABCLIA [id number] [address] [place] Differential cell count method Nom (Bld) Auto Normal [facility] Comment on above: Order Comment: Speci men Type: BLOOD SPECIMENOrdering Facility: [facility] Address: [address] [place] [address] Performed By: #### 5 7021-8 ####[facility] LABCLIA [id number] [place] [address] [place] Eosinophils (Bld) [#/Vol] 0.41 10*3/uL Normal <0.46 [facility] Comment on above: Order Comment: Speci men Type: BLOOD SPECIMENOrdering Facility: [facility] Address: [address] [address] Performed By: #### 5 7021-8 ####[facility] LABCLIA [id number] [place] [address] [place] Eosinophils/100 WBC (Bld) 4.7 % Normal [facility] Comment on above: Order Comment: Speci men Type: BLOOD SPECIMENOrdering Facility: [facility] Address: [address] Performed By: #### 5 7021-8 ####[facility] LABIA [id number] [place] [address] [place] Erythrocyte distribution width (RBC) [Ratio] 17.1 % High 11.5-15.0 [facility] Comment on above: Order Comment: Speci men Type: BLOOD SPECIMENOrdering Facility: [facility] Address: [address] Performed By: #### 5 7021-8 ####[facility] LABCLIA [id number] [place] [address] [place] Hematocrit (Bld) [Volume fraction] 25.2 % Low 39.0-51.0 [facility] Comment on above: Order Comment: Speci men Type: BLOOD SPECIMENOrdering Facility: [facility] Address: [address] Performed By: #### 5 7021-8 ####[facility] LABIA [id number] [place] [address] [place] Hemoglobin (Bld) [Mass/Vol] 8.3 g/dL Low 13.0-17.0 [facility] Comment on above: Order Comment: Speci men Type: BLOOD SPECIMENOrdering Facility: [facility] Address: [address] Performed By: #### 5 7021-8 ####[facility] LABCLIA [id number] [place] [address] [place] Immature granulocytes (Bld) [#/Vol] 0.05 10*3/uL Normal <0.10 [facility] Comment on above: Order Comment: Speci men Type: BLOOD SPECIMENOrdering Facility: [facility] Address: [address] [place] [address] Performed By: #### 5 7021-8 ####[facility] LABCLIA [id number] [address] [place] Immature granulocytes/100 WBC (Bld) 0.6 % Normal [facility] Comment on above: Order Comment: Speci men Type: BLOOD SPECIMENOrdering Facility: [facility] Address: [address] [place] [address] Performed By: #### 5 7021-8 ####[facility] LABIA [id number] [address] [place] Lymphocytes (Bld) [#/Vol] 0.55 10*3/uL Low 1.00-4.00 [facility] Comment on above: Order Comment: Speci men Type: BLOOD SPECIMENOrdering Facility: [facility] Address: [address] [place] [address] Performed By: #### 5 7021-8 ####[facility] [place] LABCLIA [id number] [address] [place] Lymphocytes/100 WBC (Bld) 6.4 % Normal [facility] Comment on above: Order Comment: Speci men Type: BLOOD SPECIMENOrdering Facility: [facility] Address: [address] [place], [place] [address] Performed By: #### 5 7021-8 ####[facility] LABCLIA [id number] [place] [address] [place] MCH (RBC) [Entitic mass] 29.1 pg Normal 26.0-34.0 [facility] Comment on above: Order Comment: Speci men Type: BLOOD SPECIMENOrdering Facility: [facility] Address: [address] Performed By: #### 5 7021-8 ####[facility] LABCLIA [id number] [place] [address] [place] MCHC (RBC) [Mass/Vol] 32.9 g/dL Normal 30.5-36.0 [facility] Comment on above: Order Comment: Speci men Type: BLOOD SPECIMENOrdering Facility: [facility] Address: [address] [place], [place] [address] Performed By: #### 5 7021-8 ####[facility] LABIA [id number] [place] [address] [place] MCV (RBC) [Entitic vol] 88.4 fL Normal 80.0-100.0 [facility] Comment on above: Order Comment: Speci men Type: BLOOD SPECIMENOrdering Facility: [facility] Address: [address] [place], [place] [address] Performed By: #### 5 7021-8 ####[facility] LABIA [id number] [place] [address] [place] Monocytes (Bld) [#/Vol] 0.60 10*3/uL Normal <0.87 [facility] Comment on above: Order Comment: Speci men Type: BLOOD SPECIMENOrdering Facility: [facility] Address: [address] Performed By: #### 5 7021-8 ####[facility] LABIA [id number] [address] [place] Monocytes/100 WBC (Bld) 6.9 % Normal [facility] Comment on above: Order Comment: Speci men Type: BLOOD SPECIMENOrdering Facility: [facility] Address: [address] Performed By: #### 5 7021-8 ####[facility] LABCLIA [id number] [place] [address] [place] Neutrophils (Bld) [#/Vol] 7.02 10*3/uL Normal 1.45-7.50 [facility] Comment on above: Order Comment: Speci men Type: BLOOD SPECIMENOrdering Facility: [facility] Address: [address] Performed By: #### 5 7021-8 ####[facility] LABCLIA [id number] [place] [address] [place] Neutrophils/100 WBC (Bld) 81.1 % Normal [facility] Comment on above: Order Comment: Speci men Type: BLOOD SPECIMENOrdering Facility: [facility] Address: [address] [place], [place] [address] Performed By: #### 5 7021-8 ####[facility] LABCLIA [id number] [place] [address] [place] Nucleated RBC (Bld) [#/Vol] 10*3/uL Normal <0.01 [facility] Comment on above: Order Comment: Speci men Type: BLOOD SPECIMENOrdering Facility: [facility] Address: [address] [place], [place] [address] Performed By: #### 5 7021-8 ####[facility] LABCLIA [id number] [place] [address] [place] Nucleated RBC/100 WBC (Bld) [Ratio] 0.0 /100 WBC Normal [facility] Comment on above: Order Comment: Speci men Type: BLOOD SPECIMENOrdering Facility: [facility] Address: [address] [place], [place] [address] Performed By: #### 5 7021-8 ####[facility] LABCLIA [id number] [place] [address] [place] Platelet mean volume (Bld) [Entitic vol] 9.6 fL Normal 9.0-12.7 [facility] Comment on above: Order Comment: Speci men Type: BLOOD SPECIMENOrdering Facility: [facility] Address: [address] [place], [place] [address] Performed By: #### 5 7021-8 ####[facility] LABCLIA [id number] [place] [address] [place] Platelets (Bld) [#/Vol] 108 10*3/uL Low 150-400 [facility] Comment on above: Order Comment: Speci men Type: BLOOD SPECIMENOrdering Facility: [facility] Address: [address] [place], [place] [address] Performed By: #### 5 7021-8 ####[facility] LABCLIA [id number] [place] [address] [place] [facility] RBC (Bld) [#/Vol] 2.85 10*6/uL Low 4.20-6.00 [facility] Comment on above: Order Comment: Speci men Type: BLOOD SPECIMENOrdering Facility: [facility] Address: [address] [place], [place] [address] Performed By: #### 5 7021-8 ####[facility] LABIA [id number] [place] [address] [place] WBC (Bld) [#/Vol] 8.66 10*3/uL Normal 3.70-11.00 [facility] Comment on above: Order Comment: Speci men Type: BLOOD SPECIMENOrdering Facility: [facility] Address: [address] [place], [place] [address] Performed By: #### 5 7021-8 ####[facility] LABCLIA [id number] [place] [address] [place] Comprehensive metabolic 2000 panelon 08-03-2022 Albumin [Mass/Vol] 2.4 g/dL Low 3.9-4.9 [facility] Comment on above: Order Comment: Speci men Type: BLOOD SPECIMENOrdering Facility: [facility] Address: [address] Performed By: #### 2 4323-8, , 2776-05 ####[facility] LABCLIA [id number] [place] [address] [place] ALP [Catalytic activity/Vol] 26 U/L Low 38-113 [facility] Comment on above: Order Comment: Speci men Type: BLOOD SPECIMENOrdering Facility: [facility] Address: [address] [place], [place] [address] Performed By: #### 2 4323-8, , 2776-05 ####[facility] LABCLIA [id number] [place] [address] [place] ALT [Catalytic activity/Vol] 28 U/L Normal 10-54 [facility] Comment on above: Order Comment: Speci men Type: BLOOD SPECIMENOrdering Facility: [facility] Address: [address] [place], [place] [address] Performed By: #### 2 4323-8, , 2776-05 ####[facility] LABCLIA [id number] [place] [address] [place] Anion gap [Moles/Vol] 12 mmol/L Normal 9-18 [facility] Comment on above: Order Comment: Speci men Type: BLOOD SPECIMENOrdering Facility: [facility] Address: [address] Performed By: #### 2 4323-8, , 2776-05 ####[facility] LABCLIA [id number] [place] [address] [place] AST [Catalytic activity/Vol] 26 U/L Normal 14-40 [facility] Comment on above: Order Comment: Speci men Type: BLOOD SPECIMENOrdering Facility: [facility] Address: [address] [place] [address] Performed By: #### 2 4323-8, , 2776-05 ####[facility] [place] LABCLIA [id number] [place] [address] [place] Bilirubin [Mass/Vol] 0.4 mg/dL Normal 0.2-1.3 [facility] Comment on above: Order Comment: Speci men Type: BLOOD SPECIMENOrdering Facility: [facility] Address: [address] Performed By: #### 2 4323-8, , 2776-05 ####[facility] [place] LABCLIA [id number] [place] [address] [place] Calcium [Mass/Vol] 7.9 mg/dL Low 8.5-10.2 [facility] Comment on above: Order Comment: Speci men Type: BLOOD SPECIMENOrdering Facility: [facility] Address: [address] [place], [place] [id number] Performed By: #### 2 4323-8, , 2776-05 ####[facility] [place] LABCLIA [id number] [place] [address] [place] Chloride [Moles/Vol] 113 mmol/L High 97-105 [facility] Comment on above: Order Comment: Speci men Type: BLOOD SPECIMENOrdering Facility: [facility] Address: [address] [id number] Performed By: #### 2 4323-8, , 2776-05 ####[facility] [place] LABCLIA [id number] [place] [address] [place] CO2 [Moles/Vol] 22 mmol/L Normal 22-30 [facility] Comment on above: Order Comment: Speci men Type: BLOOD SPECIMENOrdering Facility: [facility] Address: [address] [id number] Performed By: #### 2 4323-8, 45839-9, 2776-05 ####[facility] [place] LABIA [id number] [place] [address] [place] Creatinine [Mass/Vol] 7.13 mg/dL High 0.73-1.22 [facility] Comment on above: Order Comment: Speci men Type: BLOOD SPECIMENOrdering Facility: [facility] Address: [address] [address] Performed By: #### 2 4323-8, , 2776-05 ####[facility] [place] [facility] [id number] [place] [address] [place] ESTIMATED GLOMERULAR FILTRATION RATE 8 mL/min/1.73m??? Low >=60 [facility] Comment on above: Order Comment: Moshei men Type: BLOOD SPECIMENOrdering Facility: [facility] Address: [address] [address] Result Comment: Lamar mated Glomerular Filtration Rate (eGFR) is calculated using the 2020 CKD-EPI creatinine equation. This equation utilizes serum creatinine, sex, and age as parameters. The creatinine assay has traceable calibration to isotope dilution-mass spectrometry. Refer to KDIGO guidelines for clinical interpretation. In patients with unstable renal function, e.g. those with acute kidney injury, the eGFR may not accurately reflect actual GFR. Performed By: #### 2 4323-8, , 2776-05 ####[facility] [place] LABIA [id number] [place] [address] [place] Glucose [Mass/Vol] 110 mg/dL High 74-99 [facility] Comment on above: Order Comment: Speci men Type: BLOOD SPECIMENOrdering Facility: [facility] Address: [address] [address] Result Comment: The [place] Diabetes [employer] (ADA) provides guidance for cutoff values for fasting glucose and random glucose. The ADA defines fasting as no caloric intake for at least 8 hours. Fasting plasma glucose results between 100 to 125 mg/dL indicate increased risk for diabetes (prediabetes).Fasting plasma glucose results greater than or equal to 126 mg/dL meet the criteria for diagnosis of diabetes. In the absence of unequivocal hyperglycemia, results should be confirmed by repeat testing. In a patient with classic symptoms of hyperglycemia or hyperglycemic crisis, random plasma glucose results greater than or equal to 200 mg/dL meet the criteria for diagnosis of diabetes.Reference: Standards of Medical Care in Diabetes 2016, [place] [employer]. Diabetes Care. 2016.39(Suppl 1). Performed By: #### 2 4323-8, , 2776-05 ####[facility] [place] LABCLIA [id number] [place] [address] [place] Potassium [Moles/Vol] 4.1 mmol/L Normal 3.7-5.1 [facility] Comment on above: Order Comment: Speci men Type: BLOOD SPECIMENOrdering Facility: [facility] Address: [address] [address] Performed By: #### 2 432-8, , 2776-05 ####[facility] [place] LABIA [id number] [place] [address] [place] Protein [Mass/Vol] 4.2 g/dL Low 6.3-8.0 [facility] Comment on above: Order Comment: Speci men Type: BLOOD SPECIMENOrdering Facility: [facility] Address: [address] Performed By: #### 2 4323-8, , 2776-05 ####[facility] [place] LABIA [id number] [place] [address] [place] Sodium [Moles/Vol] 147 mmol/L High 136-144 [facility] Comment on above: Order Comment: Speci men Type: BLOOD SPECIMENOrdering Facility: [facility] Address: [address] [id number] Performed By: #### 2 432-8, , 2776-05 ####[facility] [place] LABCLIA [id number] [address] [id number] [place] Urea nitrogen [Mass/Vol] 103 mg/dL High 9-24 [facility] Comment on above: Order Comment: Chayito hudson Type: BLOOD SPECIMENOrdering Facility: [facility] Address: [address] [place] [address] Performed By: #### 2 4323-8, , 2776-05 ####[facility] [place] LABIA [id number] [place] [address] [place] Magnesium SerPl-mCncon 08-03 Magnesium [Mass/Vol] 2.1 mg/dL Normal 1.7-2.3 [facility] Comment on above: Order Comment: Chayito hudson Type: BLOOD SPECIMENOrdering Facility: [facility] Address: [address] [place] [address] Performed By: #### 2 4323-8, , 2776-05 ####[facility] [place] LABIA [id number] [address] [place] PT panel Coag (PPP)on 2022 INR Coag (PPP) [Relative time] 1.2 {INR} Normal 0.9-1.3 [facility] Comment on above: Order Comment: Chayito hudson Type: BLOOD SPECIMENOrdering Facility: [facility] Address: [address] [place] [address] Result Comment: Lisa min K Antagonist (VKA) Therapeutic Range: INR 2 to 3 (Target INR of 2.5)Note: For patients treated with VKA drugs, such as warfarin, the [place] [employer] 2012 Guideline recommends a therapeutic INR range of 2 to 3 (target INR of 2.5). This recommendation includes high-risk patients with antiphospholipid syndrome with previous arterial or venous thromboembolism, current-generation mechanical or bioprosthetic aortic heart valve replacement.Note: Patients with mechanical aortic valve replacement and additional risk factors for thromboembolic events (atrial fibrillation, previous thromboembolism, LV dysfunction, hypercoagulable conditions) or an older generation mechanical AVR (i.e., ball in-Cage) or any mechanical MVR should have a INR therapeutic range of 2.5 to 3.5 (target INR of 3).Jimy GH, et al. Chest 2012, 141:7S-47SMarija RA, et al. [facility] 2017, 70: 252-289 Performed By: #### 3 4528-0, 05314-7 ####[facility] [place] LABCLIA [id number] [place] [address] [place] PT Coag (PPP) [Time] 11.9 s Normal 9.7-13.0 [facility] Comment on above: Order Comment: Speci men Type: BLOOD SPECIMENOrdering Facility: [facility] Address: [address] [place] [address] Performed By: #### 3 4528-0, 76765-4 ####[facility] [place] LABIA [id number] [place] [address] [place] Phosphate SerPl-mCncon 08-03 Phosphate [Mass/Vol] 5.9 mg/dL High 2.7-4.8 [facility] Comment on above: Order Comment: Speci men Type: BLOOD SPECIMENOrdering Facility: [facility] Address: [address] [place] [address] Performed By: #### 2 4323-8, 37788-7, 2777-1 ####[facility]TON[facility] [id number] [place] [address] [place] XR ABDOMEN 1V SUPINEon 08-03 XR ABDOMEN 1V SUPINE Normal [facility] aPTT PPPon 08-03-2022 aPTT Coag (PPP) [Time] 28.4 s Normal 23.0-32.4 [facility] Comment on above: Order Comment: Speci men Type: BLOOD SPECIMENOrdering Facility: [facility] Address: [address] [place] [address] Performed By: #### 3 4528-0, 29596-7 ####[facility] [place] LABCLIA [id number] [place] [address] [place] CBC W Auto Differential pane l (Bld)on 08-02-2022 Basophils (Bld) [#/Vol] 10*3/uL Normal <0.11 [facility] Comment on above: Order Comment: Speci men Type: BLOOD SPECIMENOrdering Facility: [facility] Address: [address] Performed By: #### 5 7021-8 ####[facility] [place] LABCLIA [id number] [place] [address] [place] Basophils/100 WBC (Bld) 0.2 % Normal [facility] Comment on above: Order Comment: Speci men Type: BLOOD SPECIMENOrdering Facility: [facility] Address: [address] [place], [place] [address] Performed By: #### 5 7021-8 ####[facility] [place] LABCLIA [id number] [place] [address] [place] Differential cell count method Nom (Bld) Auto Normal [facility] Comment on above: Order Comment: Speci men Type: BLOOD SPECIMENOrdering Facility: [facility] Address: [address] Performed By: #### 5 7021-8 ####[facility] [place] LABCLIA [id number] [place] [address] [place] Eosinophils (Bld) [#/Vol] 10*3/uL Normal <0.46 [facility] Comment on above: Order Comment: Speci men Type: BLOOD SPECIMENOrdering Facility: [facility] Address: [address] Performed By: #### 5 7021-8 ####[facility] [place] LABCLIA [id number] [place] [address] [place] Eosinophils/100 WBC (Bld) 0.1 % Normal [facility] Comment on above: Order Comment: Speci men Type: BLOOD SPECIMENOrdering Facility: [facility] Address: [address] [place] [address] Performed By: #### 5 7021-8 ####[facility] [place] LABCLIA [id number] [place] [address] [place] Erythrocyte distribution width (RBC) [Ratio] 16.5 % High 11.5-15.0 [facility] Comment on above: Order Comment: Speci men Type: BLOOD SPECIMENOrdering Facility: [facility] Address: [address] [place] [address] Performed By: #### 5 7021-8 ####[facility] [place] LABIA [id number] [place] [address] [place] Hematocrit (Bld) [Volume fraction] 25.8 % Low 39.0-51.0 [facility] Comment on above: Order Comment: Speci men Type: BLOOD SPECIMENOrdering Facility: [facility] Address: [address] [place] [address] Performed By: #### 5 7021-8 ####[facility] [place] LABCLIA [id number] [place] [address] [place] Hemoglobin (Bld) [Mass/Vol] 8.7 g/dL Low 13.0-17.0 [facility] Comment on above: Order Comment: Speci men Type: BLOOD SPECIMENOrdering Facility: [facility] Address: [address] [place], [place] [address] Performed By: #### 5 7021-8 ####[facility] [place] LABCLIA [id number] [place] [address] [place] Immature granulocytes (Bld) [#/Vol] 0.04 10*3/uL Normal <0.10 [facility] Comment on above: Order Comment: Speci men Type: BLOOD SPECIMENOrdering Facility: [facility] Address: [address] [address] Performed By: #### 5 7021-8 ####[facility] [place] LABCLIA [id number] [address] [place] [facility] Immature granulocytes/100 WBC (Bld) 0.5 % Normal [facility] Comment on above: Order Comment: Speci men Type: BLOOD SPECIMENOrdering Facility: [facility] Address: [address] [place] [address] Performed By: #### 5 7021-8 ####[facility] [place] LABCLIA [id number] [place] [address] [place] Lymphocytes (Bld) [#/Vol] 0.35 10*3/uL Low 1.00-4.00 [facility] Comment on above: Order Comment: Speci men Type: BLOOD SPECIMENOrdering Facility: [facility] Address: [address] [place] [address] Performed By: #### 5 7021-8 ####[facility] [place] LABCLIA [id number] [address] [place] Lymphocytes/100 WBC (Bld) 4.1 % Normal [facility] Comment on above: Order Comment: Speci men Type: BLOOD SPECIMENOrdering Facility: [facility] Address: [address] [place], [place] [address] Performed By: #### 5 7021-8 ####[facility] [place] LABCLIA [id number] [place] [address] [place] MCH (RBC) [Entitic mass] 29.0 pg Normal 26.0-34.0 [facility] Comment on above: Order Comment: Speci men Type: BLOOD SPECIMENOrdering Facility: [facility] Address: [address] [place] [address] Performed By: #### 5 7021-8 ####[facility] [place] LABCLIA [id number] [place] [address] [place] MCHC (RBC) [Mass/Vol] 33.7 g/dL Normal 30.5-36.0 [facility] Comment on above: Order Comment: Speci men Type: BLOOD SPECIMENOrdering Facility: [facility] Address: [address] [place] [address] Performed By: #### 5 7021-8 ####[facility] [id number] [place] [address] [place] MCV (RBC) [Entitic vol] 86.0 fL Normal 80.0-100.0 [facility] Comment on above: Order Comment: Speci men Type: BLOOD SPECIMENOrdering Facility: [facility] Address: [address] [place] [address] Performed By: #### 5 7021-8 ####[facility] [id number] [place] [address] [place] Monocytes (Bld) [#/Vol] 0.55 10*3/uL Normal <0.87 [facility] Comment on above: Order Comment: Speci men Type: BLOOD SPECIMENOrdering Facility: [facility] Address: [address] [place] [address] Performed By: #### 5 7021-8 ####[facility] [place] [facility] [id number] [place] [address] [place] Monocytes/100 WBC (Bld) 6.4 % Normal [facility] Comment on above: Order Comment: Speci men Type: BLOOD SPECIMENOrdering Facility: [facility] Address: [address] [place], [place] [address] Performed By: #### 5 7021-8 ####[facility] [place] LABIA [id number] [place] [address] [place] Neutrophils (Bld) [#/Vol] 7.62 10*3/uL High 1.45-7.50 [facility] Comment on above: Order Comment: Speci men Type: BLOOD SPECIMENOrdering Facility: [facility] Address: [address] Performed By: #### 5 7021-8 ####[facility] [place] LABCLIA [id number] [place] [address] [place] Neutrophils/100 WBC (Bld) 88.7 % Normal [facility] Comment on above: Order Comment: Speci men Type: BLOOD SPECIMENOrdering Facility: [facility] Address: [address] Performed By: #### 5 7021-8 ####[facility] [place] LABIA [id number] [place] [address] [place] Nucleated RBC (Bld) [#/Vol] 10*3/uL Normal <0.01 [facility] Comment on above: Order Comment: Speci men Type: BLOOD SPECIMENOrdering Facility: [facility] Address: [address] Performed By: #### 5 7021-8 ####[facility] [place] LABIA [id number] [place] [address] [place] Nucleated RBC/100 WBC (Bld) [Ratio] 0.0 /100 WBC Normal [facility] Comment on above: Order Comment: Speci men Type: BLOOD SPECIMENOrdering Facility: [facility] Address: [address] Performed By: #### 5 7021-8 ####[facility] [place] LABIA [id number] [place] [address] [place] Platelet mean volume (Bld) [Entitic vol] 9.6 fL Normal 9.0-12.7 [facility] Comment on above: Order Comment: Speci men Type: BLOOD SPECIMENOrdering Facility: [facility] Address: [address] Performed By: #### 5 7021-8 ####[facility] [place] LABIA [id number] [place] [address] [place] Platelets (Bld) [#/Vol] 93 10*3/uL Low 150-400 [facility] Comment on above: Order Comment: Speci men Type: BLOOD SPECIMENOrdering Facility: [facility] Address: [address] [place], [place] [address] Result Comment: No c lot detected. Performed By: #### 5 7021-8 ####[facility] LABIA [id number] [place] [address] [place] RBC (Bld) [#/Vol] 3.00 10*6/uL Low 4.20-6.00 [facility] Comment on above: Order Comment: Speci men Type: BLOOD SPECIMENOrdering Facility: [facility] Address: [address] [place], [place] [address] Performed By: #### 5 7021-8 ####[facility] [place] LABIA [id number] [place] [address] [place] WBC (Bld) [#/Vol] 8.59 10*3/uL Normal 3.70-11.00 [facility] Comment on above: Order Comment: Speci men Type: BLOOD SPECIMENOrdering Facility: [facility] Address: [address] [place], [place] [address] Performed By: #### 5 7021-8 ####[facility] [place] LABIA [id number] [place] [address] [place] CONSULTon 08-02-2022 CONSULT Normal [facility] CONSULT Normal [facility] CONSULT PROGon 08-02-2022 CONSULT PROG Normal [facility] CRP SerPl-mCncon 08-02-2022 CRP [Mass/Vol] 10.4 mg/dL High <0.9 [facility] Comment on above: Order Comment: Speci men Type: BLOOD SPECIMENOrdering Facility: [facility] Address: [address] [place] [address] Performed By: #### 1 988-5, 97134-1, 65060-5 ####[facility] LABIA [id number] [place] [address] [place] Comprehensive metabolic 2000 panelon 08-02-2022 Albumin [Mass/Vol] 2.6 g/dL Low 3.9-4.9 [facility] Comment on above: Order Comment: Speci men Type: BLOOD SPECIMENOrdering Facility: [facility] Address: [address] [place] [address] Performed By: #### 2 4323-8, , 277- ####[facility] [place] LABIA [id number] [place] [address] [place] ALP [Catalytic activity/Vol] 25 U/L Low 38-113 [facility] Comment on above: Order Comment: Speci men Type: BLOOD SPECIMENOrdering Facility: [facility] Address: [address] [place] [address] Performed By: #### 2 4323-8, , 2776-05 ####[facility] [place] LABIA [id number] [address] [place] ALT [Catalytic activity/Vol] 36 U/L Normal 10-54 [facility] Comment on above: Order Comment: Speci men Type: BLOOD SPECIMENOrdering Facility: [facility] Address: [address] [place], [place] [address] Performed By: #### 2 4323-8, 94157-2, 2776- ####[facility] LABIA [id number] [place] [address] [place] Anion gap [Moles/Vol] 14 mmol/L Normal 9-18 [facility] Comment on above: Order Comment: Speci men Type: BLOOD SPECIMENOrdering Facility: [facility] Address: [address] Performed By: #### 2 4323-8, 64319-2, 2776-05 ####[facility] LABIA [id number] [place] [address] [place] AST [Catalytic activity/Vol] 42 U/L High 14-40 [facility] Comment on above: Order Comment: Speci men Type: BLOOD SPECIMENOrdering Facility: [facility] Address: [address] [place] [address] Performed By: #### 2 4323-8, 08711-7, 2776-05 ####[facility] LABIA [id number] [place] [address] [place] Bilirubin [Mass/Vol] 0.5 mg/dL Normal 0.2-1.3 [facility] Comment on above: Order Comment: Speci men Type: BLOOD SPECIMENOrdering Facility: [facility] Address: [address] [place] [address] Performed By: #### 2 4323-8, , 2776-05 ####[facility] LABIA [id number] [place] [address] [place] Calcium [Mass/Vol] 7.4 mg/dL Low 8.5-10.2 [facility] Comment on above: Order Comment: Speci men Type: BLOOD SPECIMENOrdering Facility: [facility] Address: [address] [place], [place] [address] Performed By: #### 2 4323-8, 68965-3, 2776-05 ####[facility] LABIA [id number] [place] [address] [place] Chloride [Moles/Vol] 112 mmol/L High 97-105 [facility] Comment on above: Order Comment: Speci men Type: BLOOD SPECIMENOrdering Facility: [facility] Address: [address] [place], [place] [address] Performed By: #### 2 4323-8, 03939-6, 2776-05 ####[facility] LABCLIA [id number] [place] [address] [place] CO2 [Moles/Vol] 19 mmol/L Low 22-30 [facility] Comment on above: Order Comment: Speci men Type: BLOOD SPECIMENOrdering Facility: [facility] Address: [address] [place], [place] [address] Performed By: #### 2 4323-8, , 2776-05 ####[facility] LABIA [id number] [place] [address] [place] Creatinine [Mass/Vol] 6.86 mg/dL High 0.73-1.22 [facility] Comment on above: Order Comment: Speci men Type: BLOOD SPECIMENOrdering Facility: [facility] Address: [address] [place] [address] Performed By: #### 2 4323-8, , 2776-05 ####[facility] LABIA [id number] [place] [address] [place] ESTIMATED GLOMERULAR FILTRATION RATE 8 mL/min/1.73m??? Low >=60 [facility] Comment on above: Order Comment: Speci men Type: BLOOD SPECIMENOrdering Facility: [facility] Address: [address] [place], [place] [address] Result Comment: Lamar mated Glomerular Filtration Rate (eGFR) is calculated using the 2020 CKD-EPI creatinine equation. This equation utilizes serum creatinine, sex, and age as parameters. The creatinine assay has traceable calibration to isotope dilution-mass spectrometry. Refer to KDIGO guidelines for clinical interpretation. In patients with unstable renal function, e.g. those with acute kidney injury, the eGFR may not accurately reflect actual GFR. Performed By: #### 2 4323-8, 12463-9, 2776-05 ####[facility] LABIA [id number] [place] [id number] [place] Glucose [Mass/Vol] 106 mg/dL High 74-99 [facility] Comment on above: Order Comment: Speci men Type: BLOOD SPECIMENOrdering Facility: [facility] Address: [address] [place] [address] Result Comment: The [place] [employer] (ADA) provides guidance for cutoff values for fasting glucose and random glucose. The ADA defines fasting as no caloric intake for at least 8 hours. Fasting plasma glucose results between 100 to 125 mg/dL indicate increased risk for diabetes (prediabetes).Fasting plasma glucose results greater than or equal to 126 mg/dL meet the criteria for diagnosis of diabetes. In the absence of unequivocal hyperglycemia, results should be confirmed by repeat testing. In a patient with classic symptoms of hyperglycemia or hyperglycemic crisis, random plasma glucose results greater than or equal to 200 mg/dL meet the criteria for diagnosis of diabetes.Reference: Standards of Medical Care in Diabetes 2016, [place] [employer]. Diabetes Care. 2016.39(Suppl 1). Performed By: #### 2 4323-8, , 2776- ####[facility] LABCLIA [id number] [place] [address] [place] Potassium [Moles/Vol] 4.6 mmol/L Normal 3.7-5.1 [facility] Comment on above: Order Comment: Speci men Type: BLOOD SPECIMENOrdering Facility: [facility] Address: [address] [place], [place] [address] Performed By: #### 2 4323-8, , 2776-05 ####[facility] [place] LABCLIA [id number] [place] [address] [place] Protein [Mass/Vol] 4.2 g/dL Low 6.3-8.0 [facility] Comment on above: Order Comment: Speci men Type: BLOOD SPECIMENOrdering Facility: [facility] Address: [address] [place] [address] Performed By: #### 2 4323-8, , 7- ####[facility] [place] LABCLIA [id number] [place] [address] [place] Sodium [Moles/Vol] 145 mmol/L High 136-144 [facility] Comment on above: Order Comment: Speci men Type: BLOOD SPECIMENOrdering Facility: [facility] Address: [address] [place] [address] Performed By: #### 2 4323-8, 04470-1, 277-1 ####[facility] [place] LABCLIA [id number] [place] [address] [place] Urea nitrogen [Mass/Vol] 104 mg/dL High 9-24 [facility] Comment on above: Order Comment: Speci men Type: BLOOD SPECIMENOrdering Facility: [facility] Address: [address] [place] [address] Performed By: #### 2 4323-8, , 277- ####[facility] [place] LABCLIA [id number] [place] [address] [place] Cult,Bloodon 08-02-2022 Cult,Blood Specimen Description .BLOOD Special Requests LEFT HAND 1 ML Culture NO GROWTH 5 DAYS Report Status FINAL 08/02/[address] [facility] Comment on above: Performed By: #### B C #### [facility] [address] [place] [address] [id number] Meat Counter Worker: Evelio Vasquez MD Cult,Blood Specimen Description .BLOOD Special Requests LEFT ARM 1 ML Culture NO GROWTH 5 DAYS Report Status FINAL 08/02/[address] [facility] Comment on above: Performed By: #### P T, CBC #### [facility] [address] [place] [address] [id number] Meat Counter Worker: Evelio Vasquez MD Magnesium SerPl-mCncon 08-02 Magnesium [Mass/Vol] 2.0 mg/dL Normal 1.7-2.3 [facility] Comment on above: Order Comment: Speci men Type: BLOOD SPECIMENOrdering Facility: [facility] Address: [address] [place] [id number] Performed By: #### 1 988-5, 16873-0, 65333-9 ####[facility] [place] LABCLIA [id number] [place] [id number] [place] Magnesium [Mass/Vol] 2.0 mg/dL Normal 1.7-2.3 [facility] Comment on above: Order Comment: Chayito hudson Type: BLOOD SPECIMENOrdering Facility: [facility] Address: [place] [address] Performed By: #### 2 4323-8, 32821-9, 2777-1 ####[facility] [place] LABCLIA [id number] [place] [address] [place] PT panel Coag (PPP)on 2022 INR Coag (PPP) [Relative time] 1.1 {INR} Normal 0.9-1.3 [facility] Comment on above: Order Comment: Chayito hudson Type: BLOOD SPECIMENOrdering Facility: [facility] Address: [place] [address] Result Comment: Lisa min K Antagonist (VKA) Therapeutic Range: INR 2 to 3 (Target INR of 2.5)Note: For patients treated with VKA drugs, such as warfarin, the [place] [employer] 2012 Guideline recommends a therapeutic INR range of 2 to 3 (target INR of 2.5). This recommendation includes high-risk patients with antiphospholipid syndrome with previous arterial or venous thromboembolism, current-generation mechanical or bioprosthetic aortic heart valve replacement.Note: Patients with mechanical aortic valve replacement and additional risk factors for thromboembolic events (atrial fibrillation, previous thromboembolism, LV dysfunction, hypercoagulable conditions) or an older generation mechanical AVR (i.e., ball in-Cage) or any mechanical MVR should have a INR therapeutic range of 2.5 to 3.5 (target INR of 3).Jimy GH, et al. Chest 2012, 141:7S-47SNishimura RA, et al. JACC 2017, 70: 252-289 Performed By: #### 3 4528-0, 89039-8 ####[facility] [place] LABCLIA [id number] [address] [place] PT Coag (PPP) [Time] 11.4 s Normal 9.7-13.0 [facility] Comment on above: Order Comment: Speci men Type: BLOOD SPECIMENOrdering Facility: [facility] Address: [address] [place] [address] Performed By: #### 3 4528-0, 57036-3 ####[facility] [place] LABIA [id number] [address] [place] Phosphate SerPl-mCncon 08-02 Phosphate [Mass/Vol] 6.0 mg/dL High 2.7-4.8 [facility] Comment on above: Order Comment: Speci men Type: BLOOD SPECIMENOrdering Facility: [facility] Address: [address] [place] [address] Performed By: #### 2 4323-8, 34040-7, 2777-1 ####[facility] [place] LABIA [id number] [address] [place] Prealb SerPl-mCncon 08-03-19 Prealbumin [Mass/Vol] 14 mg/dL Low 17-36 [facility] Comment on above: Order Comment: Speci men Type: BLOOD SPECIMENOrdering Facility: [facility] Address: [address] [place] [address] Performed By: #### 1 988-5, 43704-8, 78076-1 ####[facility] [place] LABIA [id number] [address] [place] THERAPY NTon 08-02-2022 THERAPY NT Normal [facility] THERAPY NT Normal [facility] aPTT PPPon 08-02-2022 aPTT Coag (PPP) [Time] 28.2 s Normal 23.0-32.4 [facility] Comment on above: Order Comment: Speci men Type: BLOOD SPECIMENOrdering Facility: [facility] Address: [address] [place] [address] Performed By: #### 3 4528-0, 67034-0 ####[facility] [place] LABCLIA [id number] [place] [address] [place] ANES POSTPROC EVALon 023 ANES POSTPROC EVAL Normal [facility] ANES PRE-OPon 08-01-2022 ANES PRE-OP Normal [facility] ARTERIAL BLOOD GASES WITH IO NIZED MAGNESIUMon 08-01-2022 Base deficit (BldA) [Moles/Vol] -7 mmol/L Low -2-0 [facility] Comment on above: Order Comment: Speci men Type: ARTERIAL BLOOD SPECIMENOrdering Facility: [facility] Address: [address] [place], [place] [address] Performed By: #### A LLMG ####[facility] [place] LABIA [id number] [place] [address] [place] Calcium.ionized (Bld) [Mass/Vol] 1.08 mmol/L Normal 1.08-1.30 [facility] Comment on above: Order Comment: Speci men Type: ARTERIAL BLOOD SPECIMENOrdering Facility: [facility] Address: [address] [place], [place] [address] Performed By: #### A LLMG ####[facility] [place] LABIA [id number] [place] [address] [place] Calcium.ionized adjusted to pH 7.4 (BldA) [Moles/Vol] 1.05 mmol/L Low 1.08-1.30 [facility] Comment on above: Order Comment: Speci men Type: ARTERIAL BLOOD SPECIMENOrdering Facility: [facility] Address: [address] [place] [address] Performed By: #### A LLMG ####[facility] [place] LABCLIA [id number] [place] [address] [place] Carboxyhemoglobin (BldA) [Mass fraction] 2.4 % High 0.0-2.0 [facility] Comment on above: Order Comment: Speci men Type: ARTERIAL BLOOD SPECIMENOrdering Facility: [facility] Address: [address] [place] [address] Result Comment: Carb oxyhemoglobin Reference Range for Smokers: 2.0-8.0% Performed By: #### A LLMG ####[facility] [place] [facility] [id number] [place] [address] [place] CO2 (Bld) [Partial pressure] 33 mm Hg Low 36-46 [facility] Comment on above: Order Comment: Speci men Type: ARTERIAL BLOOD SPECIMENOrdering Facility: [facility] Address: [address] [place] [address] Performed By: #### A LLMG ####[facility] [place] LABIA [id number] [place] [address] [place] CO2 [Moles/Vol] 18 mmol/L Low 22-28 [facility] Comment on above: Order Comment: Speci men Type: ARTERIAL BLOOD SPECIMENOrdering Facility: [facility] Address: [address] [place] [address] Performed By: #### A LLMG ####[facility] [place] LABIA [id number] [place] [address] [place] CO2 adjusted to patient's actual temperature (Bld) [Partial pressure] 33 mmHg Low 36-46 [facility] Comment on above: Order Comment: Speci men Type: ARTERIAL BLOOD SPECIMENOrdering Facility: [facility] Address: [address] [place] [address] Performed By: #### A LLMG ####[facility] [place] LABIA [id number] [place] [address] [place] Glucose [Mass/Vol] 111 mg/dL High 60-105 [facility] Comment on above: Order Comment: Speci men Type: ARTERIAL BLOOD SPECIMENOrdering Facility: [facility] Address: [address] [place], [place] [phone] Performed By: #### A LLMG ####[facility] [place] LABCLIA [id number] [place] [address] [place] HCO3 (Bld) [Moles/Vol] 17 mmol/L Low 22-26 [facility] Comment on above: Order Comment: Speci men Type: ARTERIAL BLOOD SPECIMENOrdering Facility: [facility] Address: [address] Performed By: #### A LLMG ####[facility] [place] LABCLIA [id number] [place] [address] [place] Hematocrit (Bld) [Volume fraction] 26.7 % Low 39.0-51.0 [facility] Comment on above: Order Comment: Speci men Type: ARTERIAL BLOOD SPECIMENOrdering Facility: [facility] Address: [address] Performed By: #### A LLMG ####[facility] LABIA [id number] [place] [address] [place] Hemoglobin (Bld) [Mass/Vol] 8.6 g/dL Low 13.0-17.0 [facility] Comment on above: Order Comment: Speci men Type: ARTERIAL BLOOD SPECIMENOrdering Facility: [facility] Address: [address] Performed By: #### A LLMG ####[facility] LABIA [id number] [place] [address] [place] Lactate [Moles/Vol] 0.9 mmol/L Normal 0.5-2.2 [facility] Comment on above: Order Comment: Speci men Type: ARTERIAL BLOOD SPECIMENOrdering Facility: [facility] Address: [address] Performed By: #### A LLMG ####[facility] [place] LABCLIA [id number] [place] [address] [place] Magnesium [Moles/Vol] 0.46 mmol/L Normal 0.45-0.60 [facility] Comment on above: Order Comment: Speci men Type: ARTERIAL BLOOD SPECIMENOrdering Facility: [facility] Address: [address] [place], [place] [phone] Performed By: #### A LLMG ####[facility] [place] LABCLIA [id number] [place] [address] [place] Methemoglobin (Bld) [Mass fraction] 1.1 % Normal 0.0-1.5 [facility] Comment on above: Order Comment: Speci men Type: ARTERIAL BLOOD SPECIMENOrdering Facility: [facility] Address: [address] [place], [place] [address] Performed By: #### A LLMG ####[facility] [place] LABCLIA [id number] [place] [address] [place] Oxygen (Bld) [Partial pressure] 168 mm Hg High 85-95 [facility] Comment on above: Order Comment: Speci men Type: ARTERIAL BLOOD SPECIMENOrdering Facility: [facility] Address: [address] [place] [id number] Performed By: #### A LLMG ####[facility] [place] LABCLIA [id number] [place] [address] [place] Oxygen adjusted to patient's actual temperature (Bld) [Partial pressure] 168 mmHg High 85-95 [facility] Comment on above: Order Comment: Speci men Type: ARTERIAL BLOOD SPECIMENOrdering Facility: [facility] Address: [address] Performed By: #### A LLMG ####[facility] [place] LABCLIA [id number] [place] [address] [place] Oxyhemoglobin (BldA) [Mass fraction] 96 % Normal 95-98 [facility] Comment on above: Order Comment: Speci men Type: ARTERIAL BLOOD SPECIMENOrdering Facility: [facility] Address: [address] [place], [place] [phone] Performed By: #### A LLMG ####[facility] [place] LABIA [id number] [place] [address] [place] pH (Bld) 7.33 [pH] Low 7.35-7.45 [facility] Comment on above: Order Comment: Speci men Type: ARTERIAL BLOOD SPECIMENOrdering Facility: [facility] Address: [address] [place], [place] [phone] Performed By: #### A LLMG ####[facility] [place] LABIA [id number] [address] [place] pH adjusted to patient's actual temperature (Bld) 7.33 Low 7.35-7.45 [facility] Comment on above: Order Comment: Speci men Type: ARTERIAL BLOOD SPECIMENOrdering Facility: [facility] Address: [address] [place], [place] [phone] Performed By: #### A LLMG ####[facility] LABIA [id number] [place] [address] [place] Potassium [Moles/Vol] 4.4 mmol/L Normal 3.5-5.0 [facility] Comment on above: Order Comment: Speci men Type: ARTERIAL BLOOD SPECIMENOrdering Facility: [facility] Address: [address] [place], [place] [phone] Performed By: #### A LLMG ####[facility] LABIA [id number] [place] [address] [place] Sodium [Moles/Vol] 142 mmol/L Normal 136-144 [facility] Comment on above: Order Comment: Speci men Type: ARTERIAL BLOOD SPECIMENOrdering Facility: [facility] Address: [address] Performed By: #### A LLMG ####[facility] [id number] [address] [place] Base deficit (BldA) [Moles/Vol] -7 mmol/L Low -2-0 [facility] Comment on above: Order Comment: Speci men Type: ARTERIAL BLOOD SPECIMENOrdering Facility: [facility] Address: [address] Performed By: #### A LLMG ####[facility] [id number] [place] [address] [place] Calcium.ionized (Bld) [Mass/Vol] 1.08 mmol/L Normal 1.08-1.30 [facility] Comment on above: Order Comment: Speci men Type: ARTERIAL BLOOD SPECIMENOrdering Facility: [facility] Address: [address] [place], [place] [phone] Performed By: #### A LLMG ####[facility] [id number] [place] [address] [place] Calcium.ionized adjusted to pH 7.4 (BldA) [Moles/Vol] 1.04 mmol/L Low 1.08-1.30 [facility] Comment on above: Order Comment: Speci men Type: ARTERIAL BLOOD SPECIMENOrdering Facility: [facility] Address: [address] [place] [address] Performed By: #### A LLMG ####[facility] [id number] [place] [address] [place] Carboxyhemoglobin (BldA) [Mass fraction] 2.4 % High 0.0-2.0 [facility] Comment on above: Order Comment: Speci men Type: ARTERIAL BLOOD SPECIMENOrdering Facility: [facility] Address: [address] [place], [place] [phone] Result Comment: Carb oxyhemoglobin Reference Range for Smokers: 2.0-8.0% Performed By: #### A LLMG ####[facility] LABCLIA [id number] [address] [place] CO2 (Bld) [Partial pressure] 34 mm Hg Low 36-46 [facility] Comment on above: Order Comment: Speci men Type: ARTERIAL BLOOD SPECIMENOrdering Facility: [facility] Address: [address] [place] [address] Performed By: #### A LLMG ####[facility] LABCLIA [id number] [place] [address] [place] CO2 [Moles/Vol] 19 mmol/L Low 22-28 [facility] Comment on above: Order Comment: Speci men Type: ARTERIAL BLOOD SPECIMENOrdering Facility: [facility] Address: [address] [place] [address] Performed By: #### A LLMG ####[facility] LABCLIA [id number] [place] [address] [place] CO2 adjusted to patient's actual temperature (Bld) [Partial pressure] 34 mmHg Low 36-46 [facility] Comment on above: Order Comment: Speci men Type: ARTERIAL BLOOD SPECIMENOrdering Facility: [facility] Address: [address] [place] [address] Performed By: #### A LLMG ####[facility] LABCLIA [id number] [place] [address] [place] Glucose [Mass/Vol] 104 mg/dL Normal 60-105 [facility] Comment on above: Order Comment: Speci men Type: ARTERIAL BLOOD SPECIMENOrdering Facility: [facility] Address: [address] [place], [place] [phone] Performed By: #### A LLMG ####[facility] LABCLIA [id number] [place] [address] [place] HCO3 (Bld) [Moles/Vol] 18 mmol/L Low 22-26 [facility] Comment on above: Order Comment: Speci men Type: ARTERIAL BLOOD SPECIMENOrdering Facility: [facility] Address: [address] [place], [place] [phone] Performed By: #### A LLMG ####[facility] LABIA [id number] [place] [address] [place] Hematocrit (Bld) [Volume fraction] 24.8 % Low 39.0-51.0 [facility] Comment on above: Order Comment: Speci men Type: ARTERIAL BLOOD SPECIMENOrdering Facility: [facility] Address: [address] Performed By: #### A LLMG ####[facility] [id number] [place] [address] [place] Hemoglobin (Bld) [Mass/Vol] 8.0 g/dL Low 13.0-17.0 [facility] Comment on above: Order Comment: Speci men Type: ARTERIAL BLOOD SPECIMENOrdering Facility: [facility] Address: [address] [place], [place] [phone] Performed By: #### A LLMG ####[facility] [id number] [place] [address] [place] Lactate [Moles/Vol] 0.7 mmol/L Normal 0.5-2.2 [facility] Comment on above: Order Comment: Speci men Type: ARTERIAL BLOOD SPECIMENOrdering Facility: [facility] Address: [address] Performed By: #### A LLMG ####[facility] LABIA [id number] [place] [address] [place] Magnesium [Moles/Vol] 0.48 mmol/L Normal 0.45-0.60 [facility] Comment on above: Order Comment: Speci men Type: ARTERIAL BLOOD SPECIMENOrdering Facility: [facility] Address: [address] [place], [place] [id number] Performed By: #### A LLMG ####[facility] LABCLIA [id number] [address] [place] Methemoglobin (Bld) [Mass fraction] 1.1 % Normal 0.0-1.5 [facility] Comment on above: Order Comment: Speci men Type: ARTERIAL BLOOD SPECIMENOrdering Facility: [facility] Address: [address] [place] [address] Performed By: #### A LLMG ####[facility] LABCLIA [id number] [address] [place] Oxygen (Bld) [Partial pressure] 152 mm Hg High 85-95 [facility] Comment on above: Order Comment: Speci men Type: ARTERIAL BLOOD SPECIMENOrdering Facility: [facility] Address: [address] [place] [address] Performed By: #### A LLMG ####[facility] LABCLIA [id number] [address] [place] Oxygen adjusted to patient's actual temperature (Bld) [Partial pressure] 152 mmHg High 85-95 [facility] Comment on above: Order Comment: Speci men Type: ARTERIAL BLOOD SPECIMENOrdering Facility: [facility] Address: [address] [place], [place] Performed By: #### A LLMG ####[facility] LABCLIA [id number] [place] [address] [place] Oxyhemoglobin (BldA) [Mass fraction] 96 % Normal 95-98 [facility] Comment on above: Order Comment: Speci men Type: ARTERIAL BLOOD SPECIMENOrdering Facility: [facility] Address: [address] [place] [address] Performed By: #### A LLMG ####[facility] LABCLIA [id number] [place] [address] [place] pH (Bld) 7.34 [pH] Low 7.35-7.45 [facility] Comment on above: Order Comment: Speci men Type: ARTERIAL BLOOD SPECIMENOrdering Facility: [facility] Address: [address] [place], [place] [address] Performed By: #### A LLMG ####[facility] LABCLIA [id number] [place] [address] [place] pH adjusted to patient's actual temperature (Bld) 7.34 Low 7.35-7.45 [facility] Comment on above: Order Comment: Speci men Type: ARTERIAL BLOOD SPECIMENOrdering Facility: [facility] Address: [address] [place], [place] [address] Performed By: #### A LLMG ####[facility] LABIA [id number] [place] [address] [place] Potassium [Moles/Vol] 4.3 mmol/L Normal 3.5-5.0 [facility] Comment on above: Order Comment: Speci men Type: ARTERIAL BLOOD SPECIMENOrdering Facility: [facility] Address: [address] [place], [place] [address] Performed By: #### A LLMG ####[facility] LABIA [id number] [place] [place] [address] [place] Sodium [Moles/Vol] 142 mmol/L Normal 136-144 [facility] Comment on above: Order Comment: Speci men Type: ARTERIAL BLOOD SPECIMENOrdering Facility: [facility] Address: [address] [place], [place] [id number] Performed By: #### A LLMG ####[facility] LABCLIA [id number] [place] [address] [place] Base deficit (BldA) [Moles/Vol] -6 mmol/L Low -2-0 [facility] Comment on above: Order Comment: Speci men Type: ARTERIAL BLOOD SPECIMENOrdering Facility: [facility] Address: [address] Performed By: #### A LLMG ####[facility] [id number] [place] [address] [place] Calcium.ionized (Bld) [Mass/Vol] 1.07 mmol/L Low 1.08-1.30 [facility] Comment on above: Order Comment: Speci men Type: ARTERIAL BLOOD SPECIMENOrdering Facility: [facility] Address: [address] [place], [place] [phone] Performed By: #### A LLMG ####[facility] [id number] [place] [address] [place] Calcium.ionized adjusted to pH 7.4 (BldA) [Moles/Vol] 1.04 mmol/L Low 1.08-1.30 [facility] Comment on above: Order Comment: Speci men Type: ARTERIAL BLOOD SPECIMENOrdering Facility: [facility] Address: [address] [place], [place] [id number] Performed By: #### A LLMG ####[facility] [id number] [place] [address] [place] Carboxyhemoglobin (BldA) [Mass fraction] 2.2 % High 0.0-2.0 [facility] Comment on above: Order Comment: Speci men Type: ARTERIAL BLOOD SPECIMENOrdering Facility: [facility] Address: [address] [place] [place] [address] Result Comment: Carb oxyhemoglobin Reference Range for Smokers: 2.0-8.0% Performed By: #### A LLMG ####[facility] [id number] [place] [address] [place] CO2 (Bld) [Partial pressure] 35 mm Hg Low 36-46 [facility] Comment on above: Order Comment: Speci men Type: ARTERIAL BLOOD SPECIMENOrdering Facility: [facility] Address: [address] [place], [place] [phone] Performed By: #### A LLMG ####[facility] LABCLIA [id number] [address] [place] CO2 [Moles/Vol] 20 mmol/L Low 22-28 [facility] Comment on above: Order Comment: Speci men Type: ARTERIAL BLOOD SPECIMENOrdering Facility: [facility] Address: [address] [place] [place] [address] Performed By: #### A LLMG ####[facility] [place] LABCLIA [id number] [place] [address] [place] CO2 adjusted to patient's actual temperature (Bld) [Partial pressure] 35 mmHg Low 36-46 [facility] Comment on above: Order Comment: Speci men Type: ARTERIAL BLOOD SPECIMENOrdering Facility: [facility] Address: [address] [place], [place] [id number] Performed By: #### A LLMG ####[facility] [place] LABCLIA [id number] [place] [address] [place] Glucose [Mass/Vol] 97 mg/dL Normal 60-105 [facility] Comment on above: Order Comment: Speci men Type: ARTERIAL BLOOD SPECIMENOrdering Facility: [facility] Address: [address] [place] [address] Performed By: #### A LLMG ####[facility] LABCLIA [id number] [place] [address] [place] HCO3 (Bld) [Moles/Vol] 19 mmol/L Low 22-26 [facility] Comment on above: Order Comment: Speci men Type: ARTERIAL BLOOD SPECIMENOrdering Facility: [facility] Address: [address] [place] [address] Performed By: #### A LLMG ####[facility] [place] LABCLIA [id number] [place] [address] [place] Hematocrit (Bld) [Volume fraction] 26.3 % Low 39.0-51.0 [facility] Comment on above: Order Comment: Speci men Type: ARTERIAL BLOOD SPECIMENOrdering Facility: [facility] Address: [address] [place] [address] Performed By: #### A LLMG ####[facility] [place] LABIA [id number] [place] [address] [place] Hemoglobin (Bld) [Mass/Vol] 8.5 g/dL Low 13.0-17.0 [facility] Comment on above: Order Comment: Speci men Type: ARTERIAL BLOOD SPECIMENOrdering Facility: [facility] Address: [address] [place] [phone] Performed By: #### A LLMG ####[facility] [place] [facility] [id number] [place] [address] [place] Lactate [Moles/Vol] 0.8 mmol/L Normal 0.5-2.2 [facility] Comment on above: Order Comment: Speci men Type: ARTERIAL BLOOD SPECIMENOrdering Facility: [facility] Address: [address] [place], [place] [phone] Performed By: #### A LLMG ####[facility] LABIA [id number] [place] [address] [place] Magnesium [Moles/Vol] 0.53 mmol/L Normal 0.45-0.60 [facility] Comment on above: Order Comment: Speci men Type: ARTERIAL BLOOD SPECIMENOrdering Facility: [facility] Address: [address] [place], [place] [phone] Performed By: #### A LLMG ####[facility] [place] LABIA [id number] [place] [address] [place] Methemoglobin (Bld) [Mass fraction] 1.0 % Normal 0.0-1.5 [facility] Comment on above: Order Comment: Speci men Type: ARTERIAL BLOOD SPECIMENOrdering Facility: [facility] Address: [address] [place] [address] Performed By: #### A LLMG ####[facility] [place] LABCLIA [id number] [place] [address] [place] Oxygen (Bld) [Partial pressure] 167 mm Hg High 85-95 [facility] Comment on above: Order Comment: Speci men Type: ARTERIAL BLOOD SPECIMENOrdering Facility: [facility] Address: [address] Performed By: #### A LLMG ####[facility] [place] LABIA [id number] [place] [address] [place] Oxygen adjusted to patient's actual temperature (Bld) [Partial pressure] 167 mmHg High 85-95 [facility] Comment on above: Order Comment: Speci men Type: ARTERIAL BLOOD SPECIMENOrdering Facility: [facility] Address: [address] Performed By: #### A LLMG ####[facility] LABIA [id number] [place] [address] [place] Oxyhemoglobin (BldA) [Mass fraction] 96 % Normal 95-98 [facility] Comment on above: Order Comment: Speci men Type: ARTERIAL BLOOD SPECIMENOrdering Facility: [facility] Address: [address] [place] [address] Performed By: #### A LLMG ####[facility] LABIA [id number] [place] [address] [place] pH (Bld) 7.34 [pH] Low 7.35-7.45 [facility] Comment on above: Order Comment: Speci men Type: ARTERIAL BLOOD SPECIMENOrdering Facility: [facility] Address: [address] [place] [address] Performed By: #### A LLMG ####[facility] [place] LABCLIA [id number] [place] [address] [place] pH adjusted to patient's actual temperature (Bld) 7.34 Low 7.35-7.45 [facility] Comment on above: Order Comment: Speci men Type: ARTERIAL BLOOD SPECIMENOrdering Facility: [facility] Address: [address] [place] [address] Performed By: #### A LLMG ####[facility] [place] LABCLIA [id number] [place] [address] [place] Potassium [Moles/Vol] 4.5 mmol/L Normal 3.5-5.0 [facility] Comment on above: Order Comment: Speci men Type: ARTERIAL BLOOD SPECIMENOrdering Facility: [facility] Address: [address] [place] [address] Performed By: #### A LLMG ####[facility] [place] LABCLIA [id number] [place] [address] [place] Sodium [Moles/Vol] 142 mmol/L Normal 136-144 [facility] Comment on above: Order Comment: Speci men Type: ARTERIAL BLOOD SPECIMENOrdering Facility: [facility] Address: [address] [place], [place] [address] Performed By: #### A LLMG ####[facility] [place] LABCLIA [id number] [place] [address] [place] Base deficit (BldA) [Moles/Vol] -6 mmol/L Low -2-0 [facility] Comment on above: Order Comment: Speci men Type: ARTERIAL BLOOD SPECIMENOrdering Facility: [facility] Address: [address] [place], [place] [phone] Performed By: #### A LLMG ####[facility] [place] LABCLIA [id number] [place] [address] [place] Calcium.ionized (Bld) [Mass/Vol] 1.06 mmol/L Low 1.08-1.30 [facility] Comment on above: Order Comment: Speci men Type: ARTERIAL BLOOD SPECIMENOrdering Facility: [facility] Address: [address] [place] [address] Performed By: #### A LLMG ####[facility] [place] [facility] [id number] [place] [address] [place] Calcium.ionized adjusted to pH 7.4 (BldA) [Moles/Vol] 1.03 mmol/L Low 1.08-1.30 [facility] Comment on above: Order Comment: Speci men Type: ARTERIAL BLOOD SPECIMENOrdering Facility: [facility] Address: [address] [place] [address] Performed By: #### A LLMG ####[facility] [id number] [place] [address] [place] Carboxyhemoglobin (BldA) [Mass fraction] 1.6 % Normal 0.0-2.0 [facility] Comment on above: Order Comment: Speci men Type: ARTERIAL BLOOD SPECIMENOrdering Facility: [facility] Address: [address] [place] [address] Result Comment: Carb oxyhemoglobin Reference Range for Smokers: 2.0-8.0% Performed By: #### A LLMG ####[facility] [id number] [place] [address] [place] CO2 (Bld) [Partial pressure] 33 mm Hg Low 36-46 [facility] Comment on above: Order Comment: Speci men Type: ARTERIAL BLOOD SPECIMENOrdering Facility: [facility] Address: [address] Performed By: #### A LLMG ####[facility] [id number] [place] [address] [place] CO2 [Moles/Vol] 19 mmol/L Low 22-28 [facility] Comment on above: Order Comment: Speci men Type: ARTERIAL BLOOD SPECIMENOrdering Facility: [facility] Address: [address] [place], [place] [address] Performed By: #### A LLMG ####[facility] LABCLIA [id number] [address] STATES OF [facility] CO2 adjusted to patient's actual temperature (Bld) [Partial pressure] 33 mmHg Low 36-46 [facility] Comment on above: Order Comment: Speci men Type: ARTERIAL BLOOD SPECIMENOrdering Facility: [facility] Address: [address] [place], [place] [address] Performed By: #### A LLMG ####[facility] LABCLIA [id number] [place] [address] [place] Glucose [Mass/Vol] 86 mg/dL Normal 60-105 [facility] Comment on above: Order Comment: Speci men Type: ARTERIAL BLOOD SPECIMENOrdering Facility: [facility] Address: [address] [place], [place] [address] Performed By: #### A LLMG ####[facility] LABCLIA [id number] [address] [place] HCO3 (Bld) [Moles/Vol] 18 mmol/L Low 22-26 [facility] Comment on above: Order Comment: Speci men Type: ARTERIAL BLOOD SPECIMENOrdering Facility: [facility] Address: [address] [place], [place] [address] Performed By: #### A LLMG ####[facility] [place] LABCLIA [id number] [address] [place] Hematocrit (Bld) [Volume fraction] 25.2 % Low 39.0-51.0 [facility] Comment on above: Order Comment: Speci men Type: ARTERIAL BLOOD SPECIMENOrdering Facility: [facility] Address: [address] [place], [place] [address] Performed By: #### A LLMG ####[facility] [place] LABCLIA [id number] [address] [place] Hemoglobin (Bld) [Mass/Vol] 8.1 g/dL Low 13.0-17.0 [facility] Comment on above: Order Comment: Speci men Type: ARTERIAL BLOOD SPECIMENOrdering Facility: [facility] Address: [address] Performed By: #### A LLMG ####[facility] LABIA [id number] [address] [place] Lactate [Moles/Vol] 0.8 mmol/L Normal 0.5-2.2 [facility] Comment on above: Order Comment: Speci men Type: ARTERIAL BLOOD SPECIMENOrdering Facility: [facility] Address: [address] [place], [place] [address] Performed By: #### A LLMG ####[facility] [id number] [place] [address] [place] Magnesium [Moles/Vol] 0.47 mmol/L Normal 0.45-0.60 [facility] Comment on above: Order Comment: Speci men Type: ARTERIAL BLOOD SPECIMENOrdering Facility: [facility] Address: [address] [place], [place] [address] Performed By: #### A LLMG ####[facility] LABIA [id number] [address] [place] Methemoglobin (Bld) [Mass fraction] 1.5 % Normal 0.0-1.5 [facility] Comment on above: Order Comment: Speci men Type: ARTERIAL BLOOD SPECIMENOrdering Facility: [facility] Address: [address] [place], [place] [address] Performed By: #### A LLMG ####[facility] LABIA [id number] [address] [place] Oxygen (Bld) [Partial pressure] 178 mm Hg High 85-95 [facility] Comment on above: Order Comment: Speci men Type: ARTERIAL BLOOD SPECIMENOrdering Facility: [facility] Address: [address] [place] [address], [place] [address] Performed By: #### A LLMG ####[facility] LABCLIA [id number] [place] [address] [place] Oxygen adjusted to patient's actual temperature (Bld) [Partial pressure] 178 mmHg High 85-95 [facility] Comment on above: Order Comment: Speci men Type: ARTERIAL BLOOD SPECIMENOrdering Facility: [facility] Address: [address] [place] [address] Performed By: #### A LLMG ####[facility] LABCLIA [id number] [place] [address] [place] Oxyhemoglobin (BldA) [Mass fraction] 96 % Normal 95-98 [facility] Comment on above: Order Comment: Speci men Type: ARTERIAL BLOOD SPECIMENOrdering Facility: [facility] Address: [address] [place], [place] [address] Performed By: #### A LLMG ####[facility] [place] LABCLIA [id number] [place] [address] [place] pH (Bld) 7.36 [pH] Normal 7.35-7.45 [facility] Comment on above: Order Comment: Speci men Type: ARTERIAL BLOOD SPECIMENOrdering Facility: [facility] Address: [address] [place] [address] Performed By: #### A LLMG ####[facility] LABCLIA [id number] [address] [place] pH adjusted to patient's actual temperature (Bld) 7.36 Normal 7.35-7.45 [facility] Comment on above: Order Comment: Speci men Type: ARTERIAL BLOOD SPECIMENOrdering Facility: [facility] Address: [address] [place] [address] Performed By: #### A LLMG ####[facility] LABCLIA [id number] [address] [place] Potassium [Moles/Vol] 4.0 mmol/L Normal 3.5-5.0 [facility] Comment on above: Order Comment: Speci men Type: ARTERIAL BLOOD SPECIMENOrdering Facility: [facility] Address: [address] [place], [place] [address] Performed By: #### A LLMG ####[facility] LABCLIA [id number] [place] [address] [place] Sodium [Moles/Vol] 142 mmol/L Normal 136-144 [facility] Comment on above: Order Comment: Speci men Type: ARTERIAL BLOOD SPECIMENOrdering Facility: [facility] Address: [address] [place], [place] [address] Performed By: #### A LLMG ####[facility] LABIA [id number] [address] [place] BRIEF OP NOTon 08-01-2022 BRIEF OP NOT Normal [facility] CASE MANAGEMon 08-01-2022 CASE MANAGEM Normal [facility] CBC panel Auto (Bld)on 08-01 Erythrocyte distribution width (RBC) [Ratio] 16.4 % High 11.5-15.0 [facility] Comment on above: Order Comment: Speci men Type: BLOOD SPECIMENOrdering Facility: [facility] Address: [address] [place], [place] [address] Performed By: #### 5 8410-2 ####[facility] LABCLIA [id number] [address] [place] Hematocrit (Bld) [Volume fraction] 26.1 % Low 39.0-51.0 [facility] Comment on above: Order Comment: Speci men Type: BLOOD SPECIMENOrdering Facility: [facility] Address: [address] [place], [place] [address] Performed By: #### 5 8410-2 ####[facility] LABCLIA [id number] [address] STATES OF [facility] Hemoglobin (Bld) [Mass/Vol] 8.8 g/dL Low 13.0-17.0 [facility] Comment on above: Order Comment: Speci men Type: BLOOD SPECIMENOrdering Facility: [facility] Address: [address] [place] [address] Performed By: #### 5 8410-2 ####[facility] LABIA [id number] [address] STATES [facility] MCH (RBC) [Entitic mass] 29.0 pg Normal 26.0-34.0 [facility] Comment on above: Order Comment: Speci men Type: BLOOD SPECIMENOrdering Facility: [facility] Address: [address] [place] [address] Performed By: #### 5 8410-2 ####[facility] LABIA [id number] [address] STATES [facility] MCHC (RBC) [Mass/Vol] 33.7 g/dL Normal 30.5-36.0 [facility] Comment on above: Order Comment: Speci men Type: BLOOD SPECIMENOrdering Facility: [facility] Address: [address] [place] [address] Performed By: #### 5 8410-2 ####[facility] LABIA [id number] [address] [place] MCV (RBC) [Entitic vol] 86.1 fL Normal 80.0-100.0 [facility] Comment on above: Order Comment: Speci men Type: BLOOD SPECIMENOrdering Facility: [facility] Address: [address] [place], [place] [address] Performed By: #### 5 8410-2 ####[facility] LABIA [id number] [address] [place] Nucleated RBC (Bld) [#/Vol] 10*3/uL Normal <0.01 [facility] Comment on above: Order Comment: Speci men Type: BLOOD SPECIMENOrdering Facility: [facility] Address: [address] [place] [address] Performed By: #### 5 8410-2 ####[facility] LABCLIA [id number] [place] [address] [place] Platelet mean volume (Bld) [Entitic vol] 9.8 fL Normal 9.0-12.7 [facility] Comment on above: Order Comment: Speci men Type: BLOOD SPECIMENOrdering Facility: [facility] Address: [address] [place] [address] Performed By: #### 5 8410-2 ####[facility] LABIA [id number] [place] [address] [place] Platelets (Bld) [#/Vol] 89 10*3/uL Low 150-400 [facility] Comment on above: Order Comment: Speci men Type: BLOOD SPECIMENOrdering Facility: [facility] Address: [address] [place] [address] Result Comment: No c lot detected. Performed By: #### 5 8410-2 ####[facility] LABIA [id number] [place] [address] [place] RBC (Bld) [#/Vol] 3.03 10*6/uL Low 4.20-6.00 [facility] Comment on above: Order Comment: Speci men Type: BLOOD SPECIMENOrdering Facility: [facility] Address: [address] [place] [place] [address] Performed By: #### 5 8410-2 ####[facility] LABIA [id number] [place] [address] [place] WBC (Bld) [#/Vol] 8.06 10*3/uL Normal 3.70-11.00 [facility] Comment on above: Order Comment: Speci men Type: BLOOD SPECIMENOrdering Facility: [facility] Address: [address] Performed By: #### 5 8410-2 ####[facility] LABCLIA [id number] [address] [place] Erythrocyte distribution width (RBC) [Ratio] 14.5 % Normal 11.5-15.0 [facility] Comment on above: Order Comment: Speci men Type: BLOOD SPECIMENOrdering Facility: [facility] Address: [address] Performed By: #### 5 8410-2 ####[facility] LABIA [id number] [place] [address] [place] Hematocrit (Bld) [Volume fraction] 20.4 % Low 39.0-51.0 [facility] Comment on above: Order Comment: Speci men Type: BLOOD SPECIMENOrdering Facility: [facility] Address: [address] [place], [place] [address] Performed By: #### 5 8410-2 ####[facility] LABIA [id number] [place] [address] [place] Hemoglobin (Bld) [Mass/Vol] 7.0 g/dL Low 13.0-17.0 [facility] Comment on above: Order Comment: Speci men Type: BLOOD SPECIMENOrdering Facility: [facility] Address: [address] [place], [place] [address] Performed By: #### 5 8410-2 ####[facility] [place] LABCLIA [id number] [place] [address] [place] MCH (RBC) [Entitic mass] 29.9 pg Normal 26.0-34.0 [facility] Comment on above: Order Comment: Speci men Type: BLOOD SPECIMENOrdering Facility: [facility] Address: [address] [place], [place] [id number] Performed By: #### 5 8410-2 ####[facility] [place] LABCLIA [id number] [place] [address] [place] MCHC (RBC) [Mass/Vol] 34.3 g/dL Normal 30.5-36.0 [facility] Comment on above: Order Comment: Speci men Type: BLOOD SPECIMENOrdering Facility: [facility] Address: [address] [place] [address] Performed By: #### 5 8410-2 ####[facility] LABIA [id number] [place] [address] [place] MCV (RBC) [Entitic vol] 87.2 fL Normal 80.0-100.0 [facility] Comment on above: Order Comment: Speci men Type: BLOOD SPECIMENOrdering Facility: [facility] Address: [address] [place] [address] Performed By: #### 5 8410-2 ####[facility] LABIA [id number] [address] [place] Nucleated RBC (Bld) [#/Vol] 10*3/uL Normal <0.01 [facility] Comment on above: Order Comment: Speci men Type: BLOOD SPECIMENOrdering Facility: [facility] Address: [address] [place], [place] [address] Performed By: #### 5 8410-2 ####[facility] [place] LABIA [id number] [place] [address] [place] Platelet mean volume (Bld) [Entitic vol] 9.9 fL Normal 9.0-12.7 [facility] Comment on above: Order Comment: Speci men Type: BLOOD SPECIMENOrdering Facility: [facility] Address: [address] [place], [place] [address] Performed By: #### 5 8410-2 ####[facility] [place] LABIA [id number] [place] [address] [place] Platelets (Bld) [#/Vol] 100 10*3/uL Low 150-400 [facility] Comment on above: Order Comment: Speci men Type: BLOOD SPECIMENOrdering Facility: [facility] Address: [address] [place] [address] Result Comment: No c lot detected. Performed By: #### 5 8410-2 ####[facility] LABCLIA [id number] [place] [address] [place] RBC (Bld) [#/Vol] 2.34 10*6/uL Low 4.20-6.00 [facility] Comment on above: Order Comment: Speci men Type: BLOOD SPECIMENOrdering Facility: [facility] Address: [address] [place] [address] Performed By: #### 5 8410-2 ####[facility] [place] LABCLIA [id number] [place] [address] [place] WBC (Bld) [#/Vol] 6.17 10*3/uL Normal 3.70-11.00 [facility] Comment on above: Order Comment: Speci men Type: BLOOD SPECIMENOrdering Facility: [facility] Address: [address] [place] [address] Performed By: #### 5 8410-2 ####[facility] LABCLIA [id number] [place] [address] [place] Erythrocyte distribution width (RBC) [Ratio] 14.5 % Normal 11.5-15.0 [facility] Comment on above: Order Comment: Speci men Type: BLOOD SPECIMENOrdering Facility: [facility] Address: [address] [place], [place] [address] Performed By: #### 5 8410-2 ####[facility] [place] LABCLIA [id number] [place] [address] [place] Hematocrit (Bld) [Volume fraction] 21.0 % Low 39.0-51.0 [facility] Comment on above: Order Comment: Speci men Type: BLOOD SPECIMENOrdering Facility: [facility] Address: [address] [address] Performed By: #### 5 8410-2 ####[facility] [place] [facility] [id number] [address] [place] Hemoglobin (Bld) [Mass/Vol] 7.3 g/dL Low 13.0-17.0 [facility] Comment on above: Order Comment: Speci men Type: BLOOD SPECIMENOrdering Facility: [facility] Address: [address] [address] Performed By: #### 5 8410-2 ####[facility] [id number] [address] [place] MCH (RBC) [Entitic mass] 30.2 pg Normal 26.0-34.0 [facility] Comment on above: Order Comment: Speci men Type: BLOOD SPECIMENOrdering Facility: [facility] Address: [address] Performed By: #### 5 8410-2 ####[facility] [id number] [address] [place] MCHC (RBC) [Mass/Vol] 34.8 g/dL Normal 30.5-36.0 [facility] Comment on above: Order Comment: Speci men Type: BLOOD SPECIMENOrdering Facility: [facility] Address: [address] Performed By: #### 5 8410-2 ####[facility] [place] [facility] [id number] [address] [place] MCV (RBC) [Entitic vol] 86.8 fL Normal 80.0-100.0 [facility] Comment on above: Order Comment: Speci men Type: BLOOD SPECIMENOrdering Facility: [facility] Address: [address] [place], [place] [address] Performed By: #### 5 8410-2 ####[facility] [place] LABCLIA [id number] [place] [address] [place] Nucleated RBC (Bld) [#/Vol] 10*3/uL Normal <0.01 [facility] Comment on above: Order Comment: Speci men Type: BLOOD SPECIMENOrdering Facility: [facility] Address: [address] [place] [address] Performed By: #### 5 8410-2 ####[facility] LABIA [id number] [place] [address] [place] Platelet mean volume (Bld) [Entitic vol] 9.9 fL Normal 9.0-12.7 [facility] Comment on above: Order Comment: Speci men Type: BLOOD SPECIMENOrdering Facility: [facility] Address: [address] [place] [address] Performed By: #### 5 8410-2 ####[facility] LABIA [id number] [place] [address] [place] Platelets (Bld) [#/Vol] 89 10*3/uL Low 150-400 [facility] Comment on above: Order Comment: Speci men Type: BLOOD SPECIMENOrdering Facility: [facility] Address: [address] [place] [address] Result Comment: No c lot detected. Performed By: #### 5 8410-2 ####[facility] LABIA [id number] [place] [address] [place] RBC (Bld) [#/Vol] 2.42 10*6/uL Low 4.20-6.00 [facility] Comment on above: Order Comment: Speci men Type: BLOOD SPECIMENOrdering Facility: [facility] Address: [address] [place] [address] Performed By: #### 5 8410-2 ####[facility] LABIA [id number] [place] [address] [place] WBC (Bld) [#/Vol] 5.16 10*3/uL Normal 3.70-11.00 [facility] Comment on above: Order Comment: Speci men Type: BLOOD SPECIMENOrdering Facility: [facility] Address: [address] [place] [address] Performed By: #### 5 8410-2 ####[facility] LABCLIA [id number] [place] [address] [place] CONSULT PROGon 08-01-2022 CONSULT PROG Normal [facility] Comprehensive metabolic 2000 panelon 08-01-2022 Albumin [Mass/Vol] 2.3 g/dL Low 3.9-4.9 [facility] Comment on above: Order Comment: Speci men Type: BLOOD SPECIMENOrdering Facility: [facility] Address: [address] [place] [address] Performed By: #### 2 4323-8, HSTNT, , 2776- ####[facility] [place] LABCLIA [id number] [place] [address] [place] ALP [Catalytic activity/Vol] 32 U/L Low 38-113 [facility] Comment on above: Order Comment: Speci men Type: BLOOD SPECIMENOrdering Facility: [facility] Address: [address] [place], [place] [address] Performed By: #### 2 4323-8, HSTNT, , 2776- ####[facility] [place] LABCLIA [id number] [place] [address] [place] ALT [Catalytic activity/Vol] 10 U/L Normal 10-54 [facility] Comment on above: Order Comment: Speci men Type: BLOOD SPECIMENOrdering Facility: [facility] Address: [address] [place], [place] [address] Performed By: #### 2 4323-8, HSTNT, , 2776- ####[facility] [place] LABCLIA [id number] [place] [address] [place] Anion gap [Moles/Vol] 14 mmol/L Normal 9-18 [facility] Comment on above: Order Comment: Speci men Type: BLOOD SPECIMENOrdering Facility: [facility] Address: [address] [place] [address] Performed By: #### 2 4323-8, HSTNT, , 2776-05 ####[facility] [place] LABCLIA [id number] [place] [address] [place] AST [Catalytic activity/Vol] 18 U/L Normal 14-40 [facility] Comment on above: Order Comment: Speci men Type: BLOOD SPECIMENOrdering Facility: [facility] Address: [address] [place] [address] Performed By: #### 2 4323-8, HSTNT, , 2776-05 ####[facility] [place] LABCLIA [id number] [place] [address] [place] Bilirubin [Mass/Vol] 0.3 mg/dL Normal 0.2-1.3 [facility] Comment on above: Order Comment: Speci men Type: BLOOD SPECIMENOrdering Facility: [facility] Address: [address] [place] [address] Performed By: #### 2 4323-8, HSTNT, , 2776-05 ####[facility] [place] LABCLIA [id number] [place] [address] [place] Calcium [Mass/Vol] 7.1 mg/dL Low 8.5-10.2 [facility] Comment on above: Order Comment: Speci men Type: BLOOD SPECIMENOrdering Facility: [facility] Address: [address] [place] [address] Performed By: #### 2 4323-8, HSTNT, , 2777-1 ####[facility] [place] LABCLIA [id number] [address] [address] [place] Chloride [Moles/Vol] 110 mmol/L High 97-105 [facility] Comment on above: Order Comment: Speci men Type: BLOOD SPECIMENOrdering Facility: [facility] Address: [address] [place] [address] Performed By: #### 2 4323-8, HSTNT, , 2776- ####[facility] [place] LABCLIA [id number] [place] [address] [place] CO2 [Moles/Vol] 20 mmol/L Low 22-30 [facility] Comment on above: Order Comment: Speci men Type: BLOOD SPECIMENOrdering Facility: [facility] Address: [address] [place] [address] Performed By: #### 2 4323-8, HSTNT, , 2776- ####[facility] LABCLIA [id number] [place] [address] [place] Creatinine [Mass/Vol] 6.96 mg/dL High 0.73-1.22 [facility] Comment on above: Order Comment: Speci men Type: BLOOD SPECIMENOrdering Facility: [facility] Address: [address] [place] [address] Performed By: #### 2 4323-8, HSTNT, , 2776-05 ####[facility] LABIA [id number] [place] [address] [place] ESTIMATED GLOMERULAR FILTRATION RATE 8 mL/min/1.73m??? Low >=60 [facility] Comment on above: Order Comment: Speci men Type: BLOOD SPECIMENOrdering Facility: [facility] Address: [address] [place], [place] [address] Result Comment: Lamar mated Glomerular Filtration Rate (eGFR) is calculated using the 2020 CKD-EPI creatinine equation. This equation utilizes serum creatinine, sex, and age as parameters. The creatinine assay has traceable calibration to isotope dilution-mass spectrometry. Refer to KDIGO guidelines for clinical interpretation. In patients with unstable renal function, e.g. those with acute kidney injury, the eGFR may not accurately reflect actual GFR. Performed By: #### 2 4323-8, HSTNT, , 2776-05 ####[facility] [place] LABCLIA [id number] [address] [address] [place] Glucose [Mass/Vol] 85 mg/dL Normal 74-99 [facility] Comment on above: Order Comment: Chayito hudson Type: BLOOD SPECIMENOrdering Facility: [facility] Address: [address] [address] Result Comment: The [place] Diabetes Association (ADA) provides guidance for cutoff values for fasting glucose and random glucose. The ADA defines fasting as no caloric intake for at least 8 hours. Fasting plasma glucose results between 100 to 125 mg/dL indicate increased risk for diabetes (prediabetes).Fasting plasma glucose results greater than or equal to 126 mg/dL meet the criteria for diagnosis of diabetes. In the absence of unequivocal hyperglycemia, results should be confirmed by repeat testing. In a patient with classic symptoms of hyperglycemia or hyperglycemic crisis, random plasma glucose results greater than or equal to 200 mg/dL meet the criteria for diagnosis of diabetes.Reference: Standards of Medical Care in Diabetes 2016, [place] [employer]. Diabetes Care. 2016.39(Suppl 1). Performed By: #### 2 4323-8, HSTNT, , 2776-05 ####[facility] LABCLIA [id number] [place] [id number] [place] Potassium [Moles/Vol] 4.3 mmol/L Normal 3.7-5.1 [facility] Comment on above: Order Comment: Chayito hudson Type: BLOOD SPECIMENOrdering Facility: [facility] Address: [address] [id number] Performed By: #### 2 4323-8, HSTNT, , 2776-05 ####[facility] LABCLIA [id number] [place] [address] [place] Protein [Mass/Vol] 3.5 g/dL Low 6.3-8.0 [facility] Comment on above: Order Comment: Speci men Type: BLOOD SPECIMENOrdering Facility: [facility] Address: [address] [place] [address] Performed By: #### 2 4323-8, HSTNT, 60578-9, 2776- ####[facility] LABIA [id number] [place] [address] [place] Sodium [Moles/Vol] 144 mmol/L Normal 136-144 [facility] Comment on above: Order Comment: Speci men Type: BLOOD SPECIMENOrdering Facility: [facility] Address: [address] [place] [address] Performed By: #### 2 4323-8, HSTNT, , 2776- ####[facility] LABIA [id number] [place] [address] [place] Urea nitrogen [Mass/Vol] 110 mg/dL High 9-24 [facility] Comment on above: Order Comment: Speci men Type: BLOOD SPECIMENOrdering Facility: [facility] Address: [address] [place] [address] Performed By: #### 2 4323-8, HSTNT, , 2776- ####[facility] LABIA [id number] [place] [address] [place] HIGH SENSITIVITY TROPONIN To n 08-01-2022 HIGH SENSITIVITY MIGUEL A 56 ng/L High <12 [facility] Comment on above: Order Comment: Speci men Type: BLOOD SPECIMENOrdering Facility: [facility] Address: [address] [place] [address] Result Comment: When assessing risk for acute coronary syndromes: In patients undergoing blood draw greater than or equal to 2 hours from symptom onset, with history of very low to moderate risk and non-ischemic ECG, an initial hs-Troponin T less than 12 ng/L AND a 1 hour delta hs-Troponin T less than 3 ng/L should be considered very low risk for 30 day MACE. Performed By: #### 2 4323-8, HSTNT, 51324-1, 2776- ####[facility] LABCLIA [id number] [place] [address] [facility] Magnesium SerPl-mCncon 08-01 Magnesium [Mass/Vol] 2.1 mg/dL Normal 1.7-2.3 [facility] Comment on above: Order Comment: Chayito hudson Type: BLOOD SPECIMENOrdering Facility: [facility] Address: [address] [place], [place] [address] Performed By: #### 2 4323-8, HSTNT, , 2776-05 ####[facility] LABCLIA [id number] [address] OF [facility] OPERATIVE NOon 08-01-2022 OPERATIVE NO Normal [facility] PT panel Coag (PPP)on 2022 INR Coag (PPP) [Relative time] 1.1 {INR} Normal 0.9-1.3 [facility] Comment on above: Order Comment: Chayito hudson Type: BLOOD SPECIMENOrdering Facility: [facility] Address: [address] [place], [place] [address] Result Comment: Lisa min K Antagonist (VKA) Therapeutic Range: INR 2 to 3 (Target INR of 2.5)Note: For patients treated with VKA drugs, such as warfarin, the [place] [employer] 2012 Guideline recommends a therapeutic INR range of 2 to 3 (target INR of 2.5). This recommendation includes high-risk patients with antiphospholipid syndrome with previous arterial or venous thromboembolism, current-generation mechanical or bioprosthetic aortic heart valve replacement.Note: Patients with mechanical aortic valve replacement and additional risk factors for thromboembolic events (atrial fibrillation, previous thromboembolism, LV dysfunction, hypercoagulable conditions) or an older generation mechanical AVR (i.e., ball in-Cage) or any mechanical MVR should have a INR therapeutic range of 2.5 to 3.5 (target INR of 3).Jimy GH, et al. Chest 2012, 141:7S-47SNishimura RA, et al. [facility] 2017, 70: 252-289 Performed By: #### 3 4528-0, 88053-0 ####[facility] LABIA [id number] [place] [address] [place] PT Coag (PPP) [Time] 11.0 s Normal 9.7-13.0 [facility] Comment on above: Order Comment: Speci men Type: BLOOD SPECIMENOrdering Facility: [facility] Address: [address] [place] [address] Performed By: #### 3 4528-0, 05631-5 ####[facility] LABIA [id number] [address] [place] Phosphate SerPl-mCncon 08-01 Phosphate [Mass/Vol] 5.2 mg/dL High 2.7-4.8 [facility] Comment on above: Order Comment: Speci men Type: BLOOD SPECIMENOrdering Facility: [facility] Address: [address] [place] [address] Performed By: #### 2 4323-8, HSTNT, 10745-2, 2777-1 ####[facility] [id number] [address] [place] Procalcitonin SerPl-mCncon 0 08-01-2022 Procalcitonin [Mass/Vol] 0.19 ng/mL High <0.09 [facility] Comment on above: Order Comment: Speci men Type: BLOOD SPECIMENOrdering Facility: [facility] Address: [address] [place] [address] Result Comment: For a guided interpretation of test results, please visit the Change in Procalcitonin Calculator, [email or web address]. Performed By: #### 3 3959-8 ####[facility] LABCLIA [id number] [address] SURGICAL PATHOLOGYon 023 CASE REPORT Normal [facility] Comment on above: Order Comment: Speci men Type: TISSUE SPECIMENOrdering Facility: [facility] Address: [address] [place] [address] Result Comment: Surg ical Pathology Report Case: [id number] Provider: Selvin Ball MD Collected: 08/01/2022 11:46 AMOrdering Location: Admitting Received: 08/01/2022 05:05 PMPathologist: TAMEKA Lynnpecimens: A) - JEJUNUM RESECTION, gastro-jejunostomy site B) - JEJUNUM RESECTION, jejunum C) - JEJUNUM RESECTION, J-J anastomosis Performed By: #### S ####[facility] LABIA [id number] [address] CLINICAL HISTORY Normal [facility] Comment on above: Order Comment: Speci men Type: TISSUE SPECIMENOrdering Facility: [facility] Address: [address] [place] [address] Result Comment: Pre- op diagnosis:Surgery, elective [Z41.9] Performed By: #### S ####[facility] LABIA [id number] [address] DIAGNOSIS COMMENT Normal [facility] Comment on above: Order Comment: Speci men Type: TISSUE SPECIMENOrdering Facility: [facility] Address: [address] [place] [address] Result Comment: A. S mall glands are identified in muscularis propria at the anastomosis site. The glands are comprised of cells with small round nuclei and eosinophilic to focally mucinous cytoplasm. No cytologic atypia is appreciated. No desmoplastic stroma is seen. These glands show positive staining for CK7 and CAM5.2 but are negative for Chromogranin, Synaptophysin, INSM1, WT1, TTF1, CDX2, and NKX3.1. Multiple additional deeper sections have been examined. These glands are favored to represent entrapped benign gastric epithelium at the anastomosis site. This case was reviewed with Drs. Norma, Baudilio, and Sunny who agree with this interpretation.Laboratory Developed Test (LDT) Disclaimer:Performance characteristics of immunohistochemical, immunofluorescent and chromogenic in-situ hybridization tests have been determined by the performing laboratory within [facility]???[facility] Pathology and Laboratory Medicine [place] ([facility], [facility], [facility], [facility], [facility], or [facility]) in a manner consistent with CLIA requirements. One or more of these tests have not been cleared or approved by the FDA. [facility] is regulated under CLIA as qualified to perform high-complexity testing. These tests are used for clinical purposes. They should not be regarded as investigational or for research. Positive and negative controls stain appropriately. Performed By: #### S ####[facility] LABCLIA [id number] [address] FINAL DIAGNOSIS Normal [facility] Comment on above: Order Comment: Speci men Type: TISSUE SPECIMENOrdering Facility: [facility] Address: [address] [address] Result Comment: A. G julio-jejunostomy site, excision:-Segment of small bowel and stomach with gastroenteric anastomosis.-Benign glands involving muscularis propria at anastomosis site, see comment.B. 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 J-J anastomosis, excision:-Segment of small bowel with transmural defect. Performed By: #### S ####[facility] LABIA [id number] [address] OF [facility] FINAL PERFORMING LAB Normal [facility] Comment on above: Order Comment: Speci men Type: TISSUE SPECIMENOrdering Facility: [facility] Address: [address] [address] Result Comment: Diag nostic interpretation performed at [facility], [address] [address] CLIA# [id number] Director: Lars Carr M.D. Performed By: #### S ####[facility] LABCLIA [id number] [id number] [address] [place] GROSS DESCRIPTION Normal [facility] Comment on above: Order Comment: Speci men Type: TISSUE SPECIMENOrdering Facility: [facility] Address: [address] [place] [address] Result Comment: A. J EJUNUM RESECTIONReceived in formalin designated gastro-jejunal site consisting of a 7.5 x 6.1 x 1.0 cm irregular, partially ragged, and previously opened portion of bowel. The serosa is hernandez-pink, roughened, and dull with fibrous adhesions. The mucosa is hernandez-brown, dull, and unremarkable. No discrete lesions or polyps are grossly identified. An obvious anastomosis is not grossly appreciated. The wall thickness measures 0.3 cm. Machine Washer sections are submitted in cassettes A1 and A2.B. JEJUNUM RESECTIONReceived in formalin designated jejunum consisting of a 13.7 cm in length by 6.0 cm in circumference unoriented segment of small bowel with a minimal amount of attached mesenteric fat. The mucosal margins are differentially inked in blue and green. The serosa is hernandez-pink, smooth to roughened, and intact with fibrous adhesions. The mucosa is remarkable for several polypoid lesions ranging in size from 0.7 x 0.5 x 0.5 cm to 3.0 x 1.5 x 1.0 cm. The serosa overlying the lesions is marked with black ink. The closest polypoid lesion to the green inked margin is 4.0 cm, 1.2 cm to the blue inked margin, and 2.5 cm to the closest mesenteric margin (inked in orange). The lesions appear superficial upon sectioning and are grossly confined to the mucosa. The remaining mucosa is hernandez-pink, focally finely granular, and dull with prominent transverse folds. No obvious fistulas are grossly appreciated. The wall thickness is 0.2 cm. Machine Washer sections are submitted as follows:B1 perpendicular sections from mucosal margins (blue inked margin contains closest polypoid lesion), closest mesenteric marginB2 financial services sales representative sections from largest polypoid lesionB3 financial services sales representative from different polypoid lesionB4 financial services sales representative small bowelC. JEJUNUM RESECTIONReceived in formalin designated J-J anastomosis consisting of a 5.1 x 4.5 x 3.9 cm unoriented portion of bowel tissue containing a 7.2 cm staple line. The serosa is hernandez-pink, smooth, dull, focally hemorrhagic with a previous transmural defect which is marked with orange ink. The staple line is removed and the specimen is opened to reveal a 4.5 cm linear anastomotic staple line that corresponds to the previous transmural defect. The remaining mucosa is hernandez-pink to brown, dull, and unremarkable with the usual transverse folds. The wall thickness is 0.2 cm. Machine Washer sections are submitted as follows:C1-C2 random small bowelBH/MLG August 04, 2022 9:50 AMGross examination performed [facility], [address] [place] [address] additional section from the transmural defect is requested per Dr. Urena and submitted in cassette C3. 08/08/22 BH Performed By: #### S ####[facility] [id number] [place] [address] [place] THERAPY NTon 08-01-2022 THERAPY NT Normal [facility] THERAPY NT Normal [facility] XR SURGICAL COUNT -NBon 07-16 XR SURGICAL COUNT -NB Invalid Interpretation Code [facility] aPTT PPPon 08-01-2022 aPTT Coag (PPP) [Time] 25.7 s Normal 23.0-32.4 [facility] Comment on above: Order Comment: Speci men Type: BLOOD SPECIMENOrdering Facility: [facility] Address: [address] [place] [address] Performed By: #### 3 4528-0, 75756-7 ####[facility] [place] LABIA [id number] [place] [address] [place] Basic metabolic 2000 panelon 07-31-2022 Anion gap [Moles/Vol] 13 mmol/L Normal 9-18 [facility] Comment on above: Order Comment: Speci men Type: BLOOD SPECIMENOrdering Facility: [facility] Address: [address] [address] Performed By: #### 2 4321-2 ####[facility] [place] LABCLIA [id number] [place] [address] [place] Calcium [Mass/Vol] 6.9 mg/dL Low 8.5-10.2 [facility] Comment on above: Order Comment: Speci men Type: BLOOD SPECIMENOrdering Facility: [facility] Address: [address] [address] Performed By: #### 2 4321-2 ####[facility] [place] LABCLIA [id number] [place] [address] [place] Chloride [Moles/Vol] 110 mmol/L High 97-105 [facility] Comment on above: Order Comment: Speci men Type: BLOOD SPECIMENOrdering Facility: [facility] Address: [address] [address] Performed By: #### 2 4321-2 ####[facility] [place] LABCLIA [id number] [place] [address] [place] CO2 [Moles/Vol] 21 mmol/L Low 22-30 [facility] Comment on above: Order Comment: Speci men Type: BLOOD SPECIMENOrdering Facility: [facility] Address: [address] Performed By: #### 2 4321-2 ####[facility] [place] LABCLIA [id number] [place] [address] [place] Creatinine [Mass/Vol] 6.89 mg/dL High 0.73-1.22 [facility] Comment on above: Order Comment: Speci men Type: BLOOD SPECIMENOrdering Facility: [facility] Address: [address] [address] Performed By: #### 2 4321-2 ####[facility] [place] LABCLIA [id number] [place] [address] [place] ESTIMATED GLOMERULAR FILTRATION RATE 8 mL/min/1.73m??? Low >=60 [facility] Comment on above: Order Comment: Chayito hudson Type: BLOOD SPECIMENOrdering Facility: [facility] Address: [address] [place] [address] Result Comment: Lamar mated Glomerular Filtration Rate (eGFR) is calculated using the 2020 CKD-EPI creatinine equation. This equation utilizes serum creatinine, sex, and age as parameters. The creatinine assay has traceable calibration to isotope dilution-mass spectrometry. Refer to KDIGO guidelines for clinical interpretation. In patients with unstable renal function, e.g. those with acute kidney injury, the eGFR may not accurately reflect actual GFR. Performed By: #### 2 4321-2 ####[facility] [place] LABCLIA [id number] [place] [address] [place] Glucose [Mass/Vol] 95 mg/dL Normal 74-99 [facility] Comment on above: Order Comment: Chayito hudson Type: BLOOD SPECIMENOrdering Facility: [facility] Address: [address] [place] [address] Result Comment: The [place] Diabetes Association (ADA) provides guidance for cutoff values for fasting glucose and random glucose. The ADA defines fasting as no caloric intake for at least 8 hours. Fasting plasma glucose results between 100 to 125 mg/dL indicate increased risk for diabetes (prediabetes).Fasting plasma glucose results greater than or equal to 126 mg/dL meet the criteria for diagnosis of diabetes. In the absence of unequivocal hyperglycemia, results should be confirmed by repeat testing. In a patient with classic symptoms of hyperglycemia or hyperglycemic crisis, random plasma glucose results greater than or equal to 200 mg/dL meet the criteria for diagnosis of diabetes.Reference: Standards of Medical Care in Diabetes 2016, [place] [employer]. Diabetes Care. 2016.39(Suppl 1). Performed By: #### 2 4321-2 ####[facility] [place] LABCLIA [id number] [place] [address] [place] Potassium [Moles/Vol] 4.4 mmol/L Normal 3.7-5.1 [facility] Comment on above: Order Comment: Speci men Type: BLOOD SPECIMENOrdering Facility: [facility] Address: [address] Performed By: #### 2 4321-2 ####[facility] [place] LABCLIA [id number] [place] [address] [place] Sodium [Moles/Vol] 144 mmol/L Normal 136-144 [facility] Comment on above: Order Comment: Speci men Type: BLOOD SPECIMENOrdering Facility: [facility] Address: [address] [address] Performed By: #### 2 4321-2 ####[facility] [place] LABIA [id number] [place] [address] [place] Urea nitrogen [Mass/Vol] 103 mg/dL High 9-24 [facility] Comment on above: Order Comment: Speci men Type: BLOOD SPECIMENOrdering Facility: [facility] Address: [address] Performed By: #### 2 4321-2 ####[facility] [place] LABIA [id number] [place] [address] [place] CBC panel Auto (Bld)on 07-31 Erythrocyte distribution width (RBC) [Ratio] 14.6 % Normal 11.5-15.0 [facility] Comment on above: Order Comment: Speci men Type: BLOOD SPECIMENOrdering Facility: [facility] Address: [address] Performed By: #### 5 8410-2 ####[facility] [place] LABIA [id number] [place] [address] [place] Hematocrit (Bld) [Volume fraction] 21.9 % Low 39.0-51.0 [facility] Comment on above: Order Comment: Speci men Type: BLOOD SPECIMENOrdering Facility: [facility] Address: [address] Performed By: #### 5 8410-2 ####[facility] [place] LABIA [id number] [address] [place] Hemoglobin (Bld) [Mass/Vol] 7.5 g/dL Low 13.0-17.0 [facility] Comment on above: Order Comment: Speci men Type: BLOOD SPECIMENOrdering Facility: [facility] Address: [address] [place], [place] [address] Performed By: #### 5 8410-2 ####[facility] [id number] [address] [place] MCH (RBC) [Entitic mass] 29.9 pg Normal 26.0-34.0 [facility] Comment on above: Order Comment: Speci men Type: BLOOD SPECIMENOrdering Facility: [facility] Address: [address] [place], [place] [address] Performed By: #### 5 8410-2 ####[facility] [id number] [address] [place] MCHC (RBC) [Mass/Vol] 34.2 g/dL Normal 30.5-36.0 [facility] Comment on above: Order Comment: Speci men Type: BLOOD SPECIMENOrdering Facility: [facility] Address: [address] [place], [place] [address] Performed By: #### 5 8410-2 ####[facility] [place] LABIA [id number] [address] [place] MCV (RBC) [Entitic vol] 87.3 fL Normal 80.0-100.0 [facility] Comment on above: Order Comment: Speci men Type: BLOOD SPECIMENOrdering Facility: [facility] Address: [address] [place], [place] [address] Performed By: #### 5 8410-2 ####[facility] [place] [facility] [id number] [place] [address] [place] Nucleated RBC (Bld) [#/Vol] 10*3/uL Normal <0.01 [facility] Comment on above: Order Comment: Speci men Type: BLOOD SPECIMENOrdering Facility: [facility] Address: [address] [place] [address] Performed By: #### 5 8410-2 ####[facility] [place] LABCLIA [id number] [place] [address] [place] Platelet mean volume (Bld) [Entitic vol] 10.3 fL Normal 9.0-12.7 [facility] Comment on above: Order Comment: Speci men Type: BLOOD SPECIMENOrdering Facility: [facility] Address: [address] [place] [address] Performed By: #### 5 8410-2 ####[facility] [place] LABCLIA [id number] [place] [address] [place] Platelets (Bld) [#/Vol] 89 10*3/uL Low 150-400 [facility] Comment on above: Order Comment: Speci men Type: BLOOD SPECIMENOrdering Facility: [facility] Address: [address] [place] [address] Result Comment: No c lot detected. Performed By: #### 5 8410-2 ####[facility] LABIA [id number] [place] [address] [place] RBC (Bld) [#/Vol] 2.51 10*6/uL Low 4.20-6.00 [facility] Comment on above: Order Comment: Speci men Type: BLOOD SPECIMENOrdering Facility: [facility] Address: [address] [place], [place] [address] Performed By: #### 5 8410-2 ####[facility] [place] LABCLIA [id number] [place] [address] [place] WBC (Bld) [#/Vol] 5.48 10*3/uL Normal 3.70-11.00 [facility] Comment on above: Order Comment: Speci men Type: BLOOD SPECIMENOrdering Facility: [facility] Address: [address] [place] [address] Performed By: #### 5 8410-2 ####[facility] LABIA [id number] [place] [address] [place] Erythrocyte distribution width (RBC) [Ratio] 14.5 % Normal 11.5-15.0 [facility] Comment on above: Order Comment: Speci men Type: BLOOD SPECIMENOrdering Facility: [facility] Address: [address] [place] [address] Performed By: #### 5 8410-2 ####[facility] [place] [facility] [id number] [place] [address] [place] Hematocrit (Bld) [Volume fraction] 22.0 % Low 39.0-51.0 [facility] Comment on above: Order Comment: Speci men Type: BLOOD SPECIMENOrdering Facility: [facility] Address: [address] [place] [address] Performed By: #### 5 8410-2 ####[facility] [place] LABIA [id number] [address] [place] Hemoglobin (Bld) [Mass/Vol] 7.5 g/dL Low 13.0-17.0 [facility] Comment on above: Order Comment: Speci men Type: BLOOD SPECIMENOrdering Facility: [facility] Address: [address] [place] [address] Performed By: #### 5 8410-2 ####[facility] LABIA [id number] [place] [address] [place] MCH (RBC) [Entitic mass] 29.9 pg Normal 26.0-34.0 [facility] Comment on above: Order Comment: Speci men Type: BLOOD SPECIMENOrdering Facility: [facility] Address: [address] Performed By: #### 5 8410-2 ####[facility] [place] LABCLIA [id number] [address] [place] MCHC (RBC) [Mass/Vol] 34.1 g/dL Normal 30.5-36.0 [facility] Comment on above: Order Comment: Speci men Type: BLOOD SPECIMENOrdering Facility: [facility] Address: [address] Performed By: #### 5 8410-2 ####[facility] [place] LABCLIA [id number] [place] [address] [place] MCV (RBC) [Entitic vol] 87.6 fL Normal 80.0-100.0 [facility] Comment on above: Order Comment: Speci men Type: BLOOD SPECIMENOrdering Facility: [facility] Address: [address] [place], [place] [address] Performed By: #### 5 8410-2 ####[facility] [place] LABIA [id number] [place] [address] [place] Nucleated RBC (Bld) [#/Vol] 10*3/uL Normal <0.01 [facility] Comment on above: Order Comment: Speci men Type: BLOOD SPECIMENOrdering Facility: [facility] Address: [address] Performed By: #### 5 8410-2 ####[facility] [place] LABCLIA [id number] [place] [address] [place] Platelet mean volume (Bld) [Entitic vol] 10.5 fL Normal 9.0-12.7 [facility] Comment on above: Order Comment: Speci men Type: BLOOD SPECIMENOrdering Facility: [facility] Address: [address] [place], [place] [address] Performed By: #### 5 8410-2 ####[facility] [place] LABCLIA [id number] [place] [address] [place] Platelets (Bld) [#/Vol] 74 10*3/uL Low 150-400 [facility] Comment on above: Order Comment: Speci men Type: BLOOD SPECIMENOrdering Facility: [facility] Address: [address] [place] [address] Result Comment: No c lot detected. Performed By: #### 5 8410-2 ####[facility] LABIA [id number] [place] [address] [place] RBC (Bld) [#/Vol] 2.51 10*6/uL Low 4.20-6.00 [facility] Comment on above: Order Comment: Speci men Type: BLOOD SPECIMENOrdering Facility: [facility] Address: [address] [place] [address] Performed By: #### 5 8410-2 ####[facility] [id number] [address] STATES OF [facility] WBC (Bld) [#/Vol] 4.98 10*3/uL Normal 3.70-11.00 [facility] Comment on above: Order Comment: Speci men Type: BLOOD SPECIMENOrdering Facility: [facility] Address: [address] [place] [address] Performed By: #### 5 8410-2 ####[facility] [id number] [address] [place] Erythrocyte distribution width (RBC) [Ratio] 15.0 % Normal 11.5-15.0 [facility] Comment on above: Order Comment: Speci men Type: BLOOD SPECIMENOrdering Facility: [facility] Address: [address] [place] [address] Performed By: #### 5 8410-2 ####[facility] [place] [facility] [id number] [place] [address] [place] Hematocrit (Bld) [Volume fraction] 17.3 % Low 39.0-51.0 [facility] Comment on above: Order Comment: Speci men Type: BLOOD SPECIMENOrdering Facility: [facility] Address: [address] [place] [address] Performed By: #### 5 8410-2 ####[facility] LABCLIA [id number] [address] [place] Hemoglobin (Bld) [Mass/Vol] 5.9 g/dL Critically low 13.0-17.0 [facility] Comment on above: Order Comment: Speci men Type: BLOOD SPECIMENOrdering Facility: [facility] Address: [address] [place] [address] Result Comment: No c lot detected. Performed By: #### 5 8410-2 ####[facility] LABCLIA [id number] [address] MCH (RBC) [Entitic mass] 29.5 pg Normal 26.0-34.0 [facility] Comment on above: Order Comment: Speci men Type: BLOOD SPECIMENOrdering Facility: [facility] Address: [address] [place] [address] Performed By: #### 5 8410-2 ####[facility] LABCLIA [id number] [address] OF [facility] MCHC (RBC) [Mass/Vol] 34.1 g/dL Normal 30.5-36.0 [facility] Comment on above: Order Comment: Speci men Type: BLOOD SPECIMENOrdering Facility: [facility] Address: [address] [place] [address] Performed By: #### 5 8410-2 ####[facility] LABCLIA [id number] [address] [place] MCV (RBC) [Entitic vol] 86.5 fL Normal 80.0-100.0 [facility] Comment on above: Order Comment: Speci men Type: BLOOD SPECIMENOrdering Facility: [facility] Address: [address] Performed By: #### 5 8410-2 ####[facility] LABIA [id number] [place] [address] [place] Nucleated RBC (Bld) [#/Vol] 10*3/uL Normal <0.01 [facility] Comment on above: Order Comment: Speci men Type: BLOOD SPECIMENOrdering Facility: [facility] Address: [address] [address] Performed By: #### 5 8410-2 ####[facility] LABIA [id number] [place] [address] [place] Platelet mean volume (Bld) [Entitic vol] 10.9 fL Normal 9.0-12.7 [facility] Comment on above: Order Comment: Speci men Type: BLOOD SPECIMENOrdering Facility: [facility] Address: [address] [place] [address] Performed By: #### 5 8410-2 ####[facility] LABIA [id number] [place] [address] [place] Platelets (Bld) [#/Vol] 90 10*3/uL Low 150-400 [facility] Comment on above: Order Comment: Speci men Type: BLOOD SPECIMENOrdering Facility: [facility] Address: [address] [place], [place] [address] Result Comment: No c lot detected. Performed By: #### 5 8410-2 ####[facility] LABIA [id number] [place] [address] [place] RBC (Bld) [#/Vol] 2.00 10*6/uL Low 4.20-6.00 [facility] Comment on above: Order Comment: Speci men Type: BLOOD SPECIMENOrdering Facility: [facility] Address: [address] Performed By: #### 5 8410-2 ####[facility] LABCLIA [id number] [place] [address] [place] WBC (Bld) [#/Vol] 5.19 10*3/uL Normal 3.70-11.00 [facility] Comment on above: Order Comment: Speci men Type: BLOOD SPECIMENOrdering Facility: [facility] Address: [address] Performed By: #### 5 8410-2 ####[facility] LABIA [id number] [place] [address] [place] Erythrocyte distribution width (RBC) [Ratio] 15.0 % Normal 11.5-15.0 [facility] Comment on above: Order Comment: Speci men Type: BLOOD SPECIMENOrdering Facility: [facility] Address: [address] [place], [place] [address] Performed By: #### 5 8410-2 ####[facility] LABIA [id number] [place] [address] [place] Hematocrit (Bld) [Volume fraction] 18.9 % Low 39.0-51.0 [facility] Comment on above: Order Comment: Speci men Type: BLOOD SPECIMENOrdering Facility: [facility] Address: [address] [place], [place] [address] Performed By: #### 5 8410-2 ####[facility] LABCLIA [id number] [place] [address] [place] Hemoglobin (Bld) [Mass/Vol] 6.4 g/dL Low 13.0-17.0 [facility] Comment on above: Order Comment: Speci men Type: BLOOD SPECIMENOrdering Facility: [facility] Address: [address] [place], [place] [address] Performed By: #### 5 8410-2 ####[facility] LABCLIA [id number] [address] STATES OF [facility] MCH (RBC) [Entitic mass] 30.0 pg Normal 26.0-34.0 [facility] Comment on above: Order Comment: Speci men Type: BLOOD SPECIMENOrdering Facility: [facility] Address: [address] [place] [address] Performed By: #### 5 8410-2 ####[facility] LABIA [id number] [address] MCHC (RBC) [Mass/Vol] 33.9 g/dL Normal 30.5-36.0 [facility] Comment on above: Order Comment: Speci men Type: BLOOD SPECIMENOrdering Facility: [facility] Address: [address] [place] [address] Performed By: #### 5 8410-2 ####[facility] LABIA [id number] [address] OF [facility] MCV (RBC) [Entitic vol] 88.7 fL Normal 80.0-100.0 [facility] Comment on above: Order Comment: Speci men Type: BLOOD SPECIMENOrdering Facility: [facility] Address: [address] [place] [address] Performed By: #### 5 8410-2 ####[facility] [place] [facility] [id number] [address] [place] Nucleated RBC (Bld) [#/Vol] 10*3/uL Normal <0.01 [facility] Comment on above: Order Comment: Speci men Type: BLOOD SPECIMENOrdering Facility: [facility] Address: [address] [place] [address] Performed By: #### 5 8410-2 ####[facility] [place] [facility]CLIA [id number] [address] [place] Platelet mean volume (Bld) [Entitic vol] 10.7 fL Normal 9.0-12.7 [facility] Comment on above: Order Comment: Speci men Type: BLOOD SPECIMENOrdering Facility: [facility] Address: [address] [place], [place] [address] Performed By: #### 5 8410-2 ####[facility] [place] [facility]CLIA [id number] [place] [address] [place] Platelets (Bld) [#/Vol] 84 10*3/uL Low 150-400 [facility] Comment on above: Order Comment: Speci men Type: BLOOD SPECIMENOrdering Facility: [facility] Address: [address] [place], [place] [address] Result Comment: No c lot detected. Performed By: #### 5 8410-2 ####[facility] [place] [facility] [id number] [place] [address] [place] RBC (Bld) [#/Vol] 2.13 10*6/uL Low 4.20-6.00 [facility] Comment on above: Order Comment: Speci men Type: BLOOD SPECIMENOrdering Facility: [facility] Address: [address] [place] [place] [address] Performed By: #### 5 8410-2 ####[facility] [place] [facility]CLIA [id number] [place] [address] [place] WBC (Bld) [#/Vol] 5.57 10*3/uL Normal 3.70-11.00 [facility] Comment on above: Order Comment: Speci men Type: BLOOD SPECIMENOrdering Facility: [facility] Address: [address] [place] [place] [address] Performed By: #### 5 8410-2 ####[facility] [place] LABCLIA [id number] [place] [address] [place] CNPNon 07-31-2022 CNPN Normal [facility] CONSULT PROGon 07-31-2022 CONSULT PROG Normal [facility] CONSULT PROG Normal [facility] Comprehensive metabolic 2000 panelon 07-31-2022 Albumin [Mass/Vol] 2.2 g/dL Low 3.9-4.9 [facility] Comment on above: Order Comment: Speci men Type: BLOOD SPECIMENOrdering Facility: [facility] Address: [address] [address] Performed By: #### 3 3762-6, 38452-7, HSTNT, 94230-0 ####[facility] [place] [facility]CL[facility] [id number] [place] [address] [place] ALP [Catalytic activity/Vol] 28 U/L Low 38-113 [facility] Comment on above: Order Comment: Speci men Type: BLOOD SPECIMENOrdering Facility: [facility] Address: [address] [place] [address] Performed By: #### 3 3762-6, 14435-6, HSTNT, 06329-4 ####[facility] [place] [facility]CLIA [id number] [place] [address] [place] ALT [Catalytic activity/Vol] 12 U/L Normal 10-54 [facility] Comment on above: Order Comment: Speci men Type: BLOOD SPECIMENOrdering Facility: [facility] Address: [address] [place] [address] Performed By: #### 3 3762-6, 63770-5, HSTNT, 77099-5 ####[facility] [place] [facility]CLIA [id number] [place] [address] [place] Anion gap [Moles/Vol] 11 mmol/L Normal 9-18 [facility] Comment on above: Order Comment: Speci men Type: BLOOD SPECIMENOrdering Facility: [facility] Address: [address] [place] [address] Performed By: #### 3 3762-6, 25056-3, HSTNT, 48041-8 ####[facility] [place] LABCLIA [id number] [place] [address] [place] AST [Catalytic activity/Vol] 22 U/L Normal 14-40 [facility] Comment on above: Order Comment: Speci men Type: BLOOD SPECIMENOrdering Facility: [facility] Address: [address] [place] [address] Performed By: #### 3 3762-6, 32301-7, HSTNT, 32129-0 ####[facility] [place] [facility]CL[facility] [id number] [place] [address] [place] Bilirubin [Mass/Vol] 0.3 mg/dL Normal 0.2-1.3 [facility] Comment on above: Order Comment: Speci men Type: BLOOD SPECIMENOrdering Facility: [facility] Address: [address] [place] [address] Performed By: #### 3 3762-6, 26360-9, HSTNT, 09927-7 ####[facility] [place] [facility] [id number] [place] [address] [place] Calcium [Mass/Vol] 6.8 mg/dL Low 8.5-10.2 [facility] Comment on above: Order Comment: Speci men Type: BLOOD SPECIMENOrdering Facility: [facility] Address: [address] [place] [address] Performed By: #### 3 3762-6, 77976-2, HSTNT, 25138-4 ####[facility] [place] [facility]CL[facility] [id number] [place] [address] [place] Chloride [Moles/Vol] 110 mmol/L High 97-105 [facility] Comment on above: Order Comment: Speci men Type: BLOOD SPECIMENOrdering Facility: [facility] Address: [address] [place] [address] Performed By: #### 3 3762-6, 90081-0, HSTNT, 47704-8 ####[facility] [place] [facility]CL[facility] [id number] [place] [address] [place] CO2 [Moles/Vol] 21 mmol/L Low 22-30 [facility] Comment on above: Order Comment: Speci men Type: BLOOD SPECIMENOrdering Facility: [facility] Address: [address] [place] [address] Performed By: #### 3 3762-6, 86446-0, HSTNT, 55372-9 ####[facility] [place] [facility]CL[facility] [id number] [place] [address] [place] Creatinine [Mass/Vol] 6.88 mg/dL High 0.73-1.22 [facility] Comment on above: Order Comment: Speci men Type: BLOOD SPECIMENOrdering Facility: [facility] Address: [address] [place] [address] Performed By: #### 3 3762-6, 29963-5, HSTNT, 39179-0 ####[facility] [place] [facility] [id number] [place] [address] [place] ESTIMATED GLOMERULAR FILTRATION RATE 8 mL/min/1.73m??? Low >=60 [facility] Comment on above: Order Comment: Speci men Type: BLOOD SPECIMENOrdering Facility: [facility] Address: [address] [place] [address] Result Comment: [place] m[place] Glomerular Filtration Rate (eGFR) is calculated using the 2020 CKD-EPI creatinine equation. This equation utilizes serum creatinine, sex, and age as parameters. The creatinine assay has traceable calibration to isotope dilution-mass spectrometry. Refer to KDIGO guidelines for clinical interpretation. In patients with unstable renal function, e.g. those with acute kidney injury, the eGFR may not accurately reflect actual GFR. Performed By: #### 3 3762-6, 54227-0, HSTNT, 94954-0 ####[facility] [place] [facility]CLIA [id number] [place] [id number] [place] Glucose [Mass/Vol] 89 mg/dL Normal 74-99 [facility] Comment on above: Order Comment: Chayito hudson Type: BLOOD SPECIMENOrdering Facility: [facility] Address: [address] [place], [place] [address] Result Comment: The [place] [employer] (ADA) provides guidance for cutoff values for fasting glucose and random glucose. The ADA defines fasting as no caloric intake for at least 8 hours. Fasting plasma glucose results between 100 to 125 mg/dL indicate increased risk for diabetes (prediabetes).Fasting plasma glucose results greater than or equal to 126 mg/dL meet the criteria for diagnosis of diabetes. In the absence of unequivocal hyperglycemia, results should be confirmed by repeat testing. In a patient with classic symptoms of hyperglycemia or hyperglycemic crisis, random plasma glucose results greater than or equal to 200 mg/dL meet the criteria for diagnosis of diabetes.Reference: Standards of Medical Care in Diabetes 2016, [place] [employer]. Diabetes Care. 2016.39(Suppl 1). Performed By: #### 3 3762-6, 78418-9, HSTNT, 68560-6 ####[facility] [place] LABCLIA [id number] [place] [address] [place] Potassium [Moles/Vol] 4.2 mmol/L Normal 3.7-5.1 [facility] Comment on above: Order Comment: Chayito hudson Type: BLOOD SPECIMENOrdering Facility: [facility] Address: [address] [place], [place] [address] Performed By: #### 3 3762-6, 25330-4, HSTNT, 25447-6 ####[facility] [place] [facility]CLIA [id number] [place] [address] [place] Protein [Mass/Vol] 3.7 g/dL Low 6.3-8.0 [facility] Comment on above: Order Comment: Chayito hudson Type: BLOOD SPECIMENOrdering Facility: [facility] Address: [address] [place], [place] [address] Performed By: #### 3 3762-6, 14523-8, HSTNT, 76992-1 ####[facility] [place] LABCLIA [id number] [place] [id number] [place] Sodium [Moles/Vol] 142 mmol/L Normal 136-144 [facility] Comment on above: Order Comment: Speci men Type: BLOOD SPECIMENOrdering Facility: [facility] Address: [address] [place] [address] Performed By: #### 3 3762-6, 14085-4, HSTNT, 85507-9 ####[facility] [place] LABCLIA [id number] [place] [address] [place] Urea nitrogen [Mass/Vol] 111 mg/dL High 9-24 [facility] Comment on above: Order Comment: Speci men Type: BLOOD SPECIMENOrdering Facility: [facility] Address: [address] [place] [address] Performed By: #### 3 3762-6, 19345-0, HSTNT, 04902-4 ####[facility] [place] [facility]CLIA [id number] [place] [address] [place] Albumin [Mass/Vol] 2.2 g/dL Low 3.9-4.9 [facility] Comment on above: Order Comment: Speci men Type: BLOOD SPECIMENOrdering Facility: [facility] Address: [address] [place] [address] Performed By: #### 2 4323-8, HSTNT, 77877-2, 2776-1 ####[facility] [place] [facility]CL[facility] [id number] [place] [address] [place] ALP [Catalytic activity/Vol] 29 U/L Low 38-113 [facility] Comment on above: Order Comment: Speci men Type: BLOOD SPECIMENOrdering Facility: [facility] Address: [address] [place] [address] Performed By: #### 2 4323-8, HSTNT, 92856-8, 7-1 ####[facility] [place] [facility]CLIA [id number] [place] [address] [place] ALT [Catalytic activity/Vol] 10 U/L Normal 10-54 [facility] Comment on above: Order Comment: Speci men Type: BLOOD SPECIMENOrdering Facility: [facility] Address: [address] [place] [place] [address] Performed By: #### 2 4323-8, HSTNT, 83177-8, 2776-1 ####[facility] [place] LABCLIA [id number] [place] [address] [place] Anion gap [Moles/Vol] 13 mmol/L Normal 9-18 [facility] Comment on above: Order Comment: Speci men Type: BLOOD SPECIMENOrdering Facility: [facility] Address: [address] [place] [address] Performed By: #### 2 4323-8, HSTNT, , 2776-05 ####[facility] [place] [facility] [id number] [place] [address] [place] AST [Catalytic activity/Vol] 18 U/L Normal 14-40 [facility] Comment on above: Order Comment: Speci men Type: BLOOD SPECIMENOrdering Facility: [facility] Address: [address] [place] [place] [address] Performed By: #### 2 4323-8, HSTNT, , 2776-05 ####[facility] [place] [facility] [id number] [place] [address] [place] Bilirubin [Mass/Vol] 0.3 mg/dL Normal 0.2-1.3 [facility] Comment on above: Order Comment: Speci men Type: BLOOD SPECIMENOrdering Facility: [facility] Address: [address] [place] [place] [address] Performed By: #### 2 4323-8, HSTNT, , 2776- ####[facility] [place] LABCLIA [id number] [place] [id number] [address] [place] Calcium [Mass/Vol] 6.8 mg/dL Low 8.5-10.2 [facility] Comment on above: Order Comment: Speci men Type: BLOOD SPECIMENOrdering Facility: [facility] Address: [address] [place], [place] [address] Performed By: #### 2 4323-8, HSTNT, , 2776-1 ####[facility] [place] LABCLIA [id number] [place] [address] [place] Chloride [Moles/Vol] 109 mmol/L High 97-105 [facility] Comment on above: Order Comment: Speci men Type: BLOOD SPECIMENOrdering Facility: [facility] Address: [address] [place] [address] Performed By: #### 2 4323-8, HSTNT, , 2776-05 ####[facility] [place] LABCLIA [id number] [place] [address] [place] CO2 [Moles/Vol] 20 mmol/L Low 22-30 [facility] Comment on above: Order Comment: Speci men Type: BLOOD SPECIMENOrdering Facility: [facility] Address: [address] [place], [place] [address] Performed By: #### 2 4323-8, HSTNT, , 2776-05 ####[facility] [place] LABCLIA [id number] [place] [address] [place] Creatinine [Mass/Vol] 6.88 mg/dL High 0.73-1.22 [facility] Comment on above: Order Comment: Speci men Type: BLOOD SPECIMENOrdering Facility: [facility] Address: [address] [place], [place] [address] Performed By: #### 2 4323-8, HSTNT, , 2776-1 ####[facility] [place] LABCLIA [id number] [place] [id number] [place] ESTIMATED GLOMERULAR FILTRATION RATE 8 mL/min/1.73m??? Low >=60 [facility] Comment on above: Order Comment: Chayito hudson Type: BLOOD SPECIMENOrdering Facility: [facility] Address: [address] [place], [place] [address] Result Comment: [place] mated Glomerular Filtration Rate (eGFR) is calculated using the 2020 CKD-EPI creatinine equation. This equation utilizes serum creatinine, sex, and age as parameters. The creatinine assay has traceable calibration to isotope dilution-mass spectrometry. Refer to KDIGO guidelines for clinical interpretation. In patients with unstable renal function, e.g. those with acute kidney injury, the eGFR may not accurately reflect actual GFR. Performed By: #### 2 4323-8, HSTNT, , 2776-05 ####[facility] [place] LABCLIA [id number] [place] [address] [place] Glucose [Mass/Vol] 103 mg/dL High 74-99 [facility] Comment on above: Order Comment: Chayito hudson Type: BLOOD SPECIMENOrdering Facility: [facility] Address: [address] [place] [address] Result Comment: The [place] Diabetes [employer] (ADA) provides guidance for cutoff values for fasting glucose and random glucose. The ADA defines fasting as no caloric intake for at least 8 hours. Fasting plasma glucose results between 100 to 125 mg/dL indicate increased risk for diabetes (prediabetes).Fasting plasma glucose results greater than or equal to 126 mg/dL meet the criteria for diagnosis of diabetes. In the absence of unequivocal hyperglycemia, results should be confirmed by repeat testing. In a patient with classic symptoms of hyperglycemia or hyperglycemic crisis, random plasma glucose results greater than or equal to 200 mg/dL meet the criteria for diagnosis of diabetes.Reference: Standards of Medical Care in Diabetes 2016, [place] [employer]. Diabetes Care. 2016.39(Suppl 1). Performed By: #### 2 4323-8, HSTNT, , 2776-05 ####[facility] [place] LABCLIA [id number] [place] [address] [place] Potassium [Moles/Vol] 4.1 mmol/L Normal 3.7-5.1 [facility] Comment on above: Order Comment: Speci men Type: BLOOD SPECIMENOrdering Facility: [facility] Address: [address] [place], [place] [address] Performed By: #### 2 4323-8, HSTNT, , 2776-05 ####[facility] [place] LABCLIA [id number] [place] [address] [place] Protein [Mass/Vol] 3.3 g/dL Low 6.3-8.0 [facility] Comment on above: Order Comment: Speci men Type: BLOOD SPECIMENOrdering Facility: [facility] Address: [address] [place] [address] Performed By: #### 2 4323-8, HSTNT, , 2776-05 ####[facility] [place] LABCLIA [id number] [place] [address] [place] Sodium [Moles/Vol] 142 mmol/L Normal 136-144 [facility] Comment on above: Order Comment: Speci men Type: BLOOD SPECIMENOrdering Facility: [facility] Address: [address] [place], [place] [address] Performed By: #### 2 4323-8, HSTNT, , 2776-05 ####[facility] [place] LABCLIA [id number] [place] [address] [place] Urea nitrogen [Mass/Vol] 108 mg/dL High 9-24 [facility] Comment on above: Order Comment: Speci men Type: BLOOD SPECIMENOrdering Facility: [facility] Address: [address] [place], [place] [address] Performed By: #### 2 4323-8, HSTNT, , 2776-05 ####[facility] [place] LABCLIA [id number] [place] [id number] [place] Gas and Carbon monoxide pane l (BldV)on 07-31-2022 BASE DEFICIT, VENOUS -3 mmol/L Low -2-0 [facility] Comment on above: Order Comment: Speci men Type: VENOUS BLOOD SPECIMENOrdering Facility: [facility] Address: [address] [place] [address] Performed By: #### 2 4344-4 ####[facility] [place] LABCLIA [id number] [address] [place] Body temperature 98.6 [degF] Normal [facility] Comment on above: Order Comment: Speci men Type: VENOUS BLOOD SPECIMENOrdering Facility: [facility] Address: [address] [place] [address] Performed By: #### 2 4344-4 ####[facility] [place] LABIA [id number] [place] [address] [place] Calcium.ionized (Bld) [Mass/Vol] 1.10 mmol/L Normal 1.08-1.30 [facility] Comment on above: Order Comment: Speci men Type: VENOUS BLOOD SPECIMENOrdering Facility: [facility] Address: [address] [place] [address] Performed By: #### 2 4344-4 ####[facility] [place] LABIA [id number] [address] [place] Calcium.ionized adjusted to pH 7.4 (BldA) [Moles/Vol] 1.07 mmol/L Low 1.08-1.30 [facility] Comment on above: Order Comment: Speci men Type: VENOUS BLOOD SPECIMENOrdering Facility: [facility] Address: [address] [place], [place] [address] Performed By: #### 2 4344-4 ####[facility] [place] LABCLIA [id number] [place] [address] [place] Carboxyhemoglobin (BldV) [Mass fraction] 1.2 % Normal 0.0-2.0 [facility] Comment on above: Order Comment: Speci men Type: VENOUS BLOOD SPECIMENOrdering Facility: [facility] Address: [address] [place] [address] Result Comment: Carb oxyhemoglobin Reference Range for Smokers: 2.0-8.0% Performed By: #### 2 4344-4 ####[facility] [place] LABCLIA [id number] [place] [address] [place] CO2 (BldV) [Partial pressure] 40 mm[Hg] Low 42-55 [facility] Comment on above: Order Comment: Speci men Type: VENOUS BLOOD SPECIMENOrdering Facility: [facility] Address: [address] [place] [address] Performed By: #### 2 4344-4 ####[facility] [place] LABCLIA [id number] [place] [address] [place] CO2 [Moles/Vol] 23 mmol/L Low 25-29 [facility] Comment on above: Order Comment: Speci men Type: VENOUS BLOOD SPECIMENOrdering Facility: [facility] Address: [address] [place] [address] Performed By: #### 2 4344-4 ####[facility] [place] LABCLIA [id number] [place] [address] [place] Glucose [Mass/Vol] 91 mg/dL Normal 60-105 [facility] Comment on above: Order Comment: Speci men Type: VENOUS BLOOD SPECIMENOrdering Facility: [facility] Address: [address] Performed By: #### 2 4344-4 ####[facility] [place] LABCLIA [id number] [place] [address] [place] HCO3 (Bld) [Moles/Vol] 21 mmol/L Low 24-28 [facility] Comment on above: Order Comment: Speci men Type: VENOUS BLOOD SPECIMENOrdering Facility: [facility] Address: [address] Performed By: #### 2 4344-4 ####[facility] [place] LABCLIA [id number] [place] [address] [place] Hematocrit (Bld) [Volume fraction] 23.6 % Low 39.0-51.0 [facility] Comment on above: Order Comment: Speci men Type: VENOUS BLOOD SPECIMENOrdering Facility: [facility] Address: [address] Performed By: #### 2 4344-4 ####[facility] [place] LABCLIA [id number] [place] [address] [place] Hemoglobin (Bld) [Mass/Vol] 7.6 g/dL Low 13.0-17.0 [facility] Comment on above: Order Comment: Speci men Type: VENOUS BLOOD SPECIMENOrdering Facility: [facility] Address: [address] Performed By: #### 2 4344-4 ####[facility] [place] LABIA [id number] [place] [address] [place] Lactate [Moles/Vol] 0.8 mmol/L Normal 0.5-2.2 [facility] Comment on above: Order Comment: Speci men Type: VENOUS BLOOD SPECIMENOrdering Facility: [facility] Address: [address] Performed By: #### 2 4344-4 ####[facility] [place] LABCLIA [id number] [place] [address] [place] Methemoglobin (Bld) [Mass fraction] 2.0 % High 0.0-1.5 [facility] Comment on above: Order Comment: Speci men Type: VENOUS BLOOD SPECIMENOrdering Facility: [facility] Address: [address] Performed By: #### 2 4344-4 ####[facility] [place] LABCLIA [id number] [address] [place] O2 THERAPY RA=Room Air Normal [facility] Comment on above: Order Comment: Speci men Type: VENOUS BLOOD SPECIMENOrdering Facility: [facility] Address: [address] [place] [address] Performed By: #### 2 4344-4 ####[facility] [place] LABCLIA [id number] [place] [address] [place] Oxygen (BldV) [Partial pressure] 39 mm[Hg] Normal 35-45 [facility] Comment on above: Order Comment: Speci men Type: VENOUS BLOOD SPECIMENOrdering Facility: [facility] Address: [address] [place] [address] Performed By: #### 2 4344-4 ####[facility] LABCLIA [id number] [place] [address] [place] Oxygen saturation in Venous blood 73 % Normal 60-85 [facility] Comment on above: Order Comment: Speci men Type: VENOUS BLOOD SPECIMENOrdering Facility: [facility] Address: [address] [place], [place] [address] Performed By: #### 2 4344-4 ####[facility] LABCLIA [id number] [place] [address] [place] Oxyhemoglobin (BldV) [Mass fraction] 71 % Normal 60-85 [facility] Comment on above: Order Comment: Speci men Type: VENOUS BLOOD SPECIMENOrdering Facility: [facility] Address: [address] [place], [place] [address] Performed By: #### 2 4344-4 ####[facility] [place] LABCLIA [id number] [place] [address] [place] pH (BldV) 7.34 [pH] Normal 7.32-7.42 [facility] Comment on above: Order Comment: Speci men Type: VENOUS BLOOD SPECIMENOrdering Facility: [facility] Address: [address] Performed By: #### 2 4344-4 ####[facility] [place] LABCLIA [id number] [place] [address] [place] Potassium [Moles/Vol] 4.1 mmol/L Normal 3.5-5.0 [facility] Comment on above: Order Comment: Speci men Type: VENOUS BLOOD SPECIMENOrdering Facility: [facility] Address: [address] [place], [place] [address] Performed By: #### 2 4344-4 ####[facility] LABCLIA [id number] [place] [address] [place] Sodium [Moles/Vol] 139 mmol/L Normal 136-144 [facility] Comment on above: Order Comment: Speci men Type: VENOUS BLOOD SPECIMENOrdering Facility: [facility] Address: [address] [place] [address] Performed By: #### 2 4344-4 ####[facility] [place] LABCLIA [id number] [place] [address] [place] HIGH SENSITIVITY TROPONIN To n 07-31-2022 HIGH SENSITIVITY MIGUEL A 53 ng/L High <12 [facility] Comment on above: Order Comment: Speci men Type: BLOOD SPECIMENOrdering Facility: [facility] Address: [address] [place] [address] Result Comment: When assessing risk for acute coronary syndromes: In patients undergoing blood draw greater than or equal to 2 hours from symptom onset, with history of very low to moderate risk and non-ischemic ECG, an initial hs-Troponin T less than 12 ng/L AND a 1 hour delta hs-Troponin T less than 3 ng/L should be considered very low risk for 30 day MACE. Performed By: #### 3 3762-6, 44430-7, HSTNT, 52370-8 ####[facility] LABCLIA [id number] [place] [address] [place] HIGH SENSITIVITY MIGUEL A 55 ng/L High <12 [facility] Comment on above: Order Comment: Speci men Type: BLOOD SPECIMENOrdering Facility: [facility] Address: [address] [place] [address] Result Comment: When assessing risk for acute coronary syndromes: In patients undergoing blood draw greater than or equal to 2 hours from symptom onset, with history of very low to moderate risk and non-ischemic ECG, an initial hs-Troponin T less than 12 ng/L AND a 1 hour delta hs-Troponin T less than 3 ng/L should be considered very low risk for 30 day MACE. Performed By: #### 2 4323-8, HSTNT, 77832-8, 2777-1 ####[facility] LABCLIA [id number] [place] [address] [place] HISTORY PHYSICALon HISTORY PHYSICAL Normal [facility] Magnesium [Mass/Vol] 2.3 mg/dL Normal 1.7-2.3 [facility] Comment on above: Order Comment: Speci men Type: BLOOD SPECIMENOrdering Facility: [facility] Address: [place] [address] Performed By: #### 2 4323-8, HSTNT, 08486-2, 7-1 ####[facility] LABCLIA [id number] [address] [place] NT-[facility]BNP [facility]31 Natriuretic peptide.B prohormone N-Terminal [Mass/Vol] 1749 pg/mL High <125 [facility] Comment on above: Order Comment: Moshei men Type: BLOOD SPECIMENOrdering Facility: [facility] Address: [place] [address] Performed By: #### 3 3762-6, 49462-0, HSTNT, 24557-7 ####[facility] LABCLIA [id number] [place] [address] [place] NURSING PROGon 07-31-2022 NURSING PROG Normal [facility] PT panel Coag (PPP)on 2022 INR Coag (PPP) [Relative time] 1.1 {INR} Normal 0.9-1.3 [facility] Comment on above: Order Comment: Speci tristan Type: BLOOD SPECIMENOrdering Facility: [facility] Address: [place] [address] Result Comment: Lisa min K Antagonist (VKA) Therapeutic Range: INR 2 to 3 (Target INR of 2.5)Note: For patients treated with VKA drugs, such as warfarin, the [place] [employer] 2012 Guideline recommends a therapeutic INR range of 2 to 3 (target INR of 2.5). This recommendation includes high-risk patients with antiphospholipid syndrome with previous arterial or venous thromboembolism, current-generation mechanical or bioprosthetic aortic heart valve replacement.Note: Patients with mechanical aortic valve replacement and additional risk factors for thromboembolic events (atrial fibrillation, previous thromboembolism, LV dysfunction, hypercoagulable conditions) or an older generation mechanical AVR (i.e., ball in-Cage) or any mechanical MVR should have a INR therapeutic range of 2.5 to 3.5 (target INR of 3).Jimy GH, et al. Chest 2012, 141:7S-47SNishimura RA, et al. [facility] 2017, 70: 252-289 Performed By: #### 3 4528-0, 45523-3 ####[facility] LABCLIA [id number] [place] [id number] [place] PT Coag (PPP) [Time] 11.3 s Normal 9.7-13.0 [facility] Comment on above: Order Comment: Speci men Type: BLOOD SPECIMENOrdering Facility: [facility] Address: [place] [address] Performed By: #### 3 4528-0, 19265-1 ####[facility] LABCLIA [id number] [address] [place] Phosphate SerPl-mCncon 07-31 Phosphate [Mass/Vol] 5.0 mg/dL High 2.7-4.8 [facility] Comment on above: Order Comment: Speci men Type: BLOOD SPECIMENOrdering Facility: [facility] Address: [address] [place] [address] Performed By: #### 2 4323-8, HSTNT, 36889-2, 2777-1 ####[facility] LABCLIA [id number] [place] [address] [place] Procalcitonin SerPl-mCncon 0 07-31-2022 Procalcitonin [Mass/Vol] 0.20 ng/mL High <0.09 [facility] Comment on above: Order Comment: Speci men Type: BLOOD SPECIMENOrdering Facility: [facility] Address: [address] [place] [address] Result Comment: For a guided interpretation of test results, please visit the Change in Procalcitonin Calculator, [email or web address]. Performed By: #### 3 3762-6, 89032-8, HSTNT, 51882-6 ####[facility] LABIA [id number] [place] [address] [place] SARS-CoV-2 RNA Resp Ql WAYLON+p robeon 07-31-2022 SARS-CoV-2 (COVID-19) RNA WAYLON+probe Ql (Resp) COVID 19 RESULT: Not detected The method used is RT-PCR or an equivalent NAAT method. Reference Range(the expected result in uninfected individuals): Not detected Normal [facility] Comment on above: Performed By: #### 9 4500-6 ####[facility] LABCLIA [id number] [place] [address] [place] STAPH AUREUS PCRon S. aureus and MRSA panel WAYLON+probe (Nose) Normal Negative [facility] Comment on above: Order Comment: Speci men Type: SWAB OF INTERNAL NOSEOrdering Facility: [facility] Address: [address] [place] [address] Result Comment: Nega tive for Staphylococcus aureus by PCR.Negative for MRSA by PCR Performed By: #### S APCR ####[facility] LABCLIA [id number] [place] [address] [place] Sodium SerPl-sCncon 08-01-19 23 Sodium [Moles/Vol] 141 mmol/L Normal 136-144 [facility] Comment on above: Order Comment: Speci men Type: BLOOD SPECIMENOrdering Facility: [facility] Address: [address] [place] [address] Performed By: #### 2 951-2 ####[facility] LABCLIA [id number] [place] [address] [place] Sodium [Moles/Vol] 142 mmol/L Normal 136-144 [facility] Comment on above: Order Comment: Speci men Type: BLOOD SPECIMENOrdering Facility: [facility] Address: [address] [place] [address] Performed By: #### 2 951-2 ####[facility] LABCLIA [id number] [place] [address] [place] Sodium [Moles/Vol] 143 mmol/L Normal 136-144 [facility] Comment on above: Order Comment: Speci men Type: BLOOD SPECIMENOrdering Facility: [facility] Address: [address] [place] [address] Performed By: #### 2 951-2 ####[facility] LABCLIA [id number] [place] [address] [place] Upper GI endoscopyon 023 Upper GI endoscopy Normal [facility] XR ABDOMEN 1V SUPINEon 07-31 XR ABDOMEN 1V SUPINE Normal [facility] XR CHEST 1V FRONTAL PORTon 0 07-31-2022 XR CHEST 1V FRONTAL PORT Normal [facility] aPTT PPPon 07-31-2022 aPTT Coag (PPP) [Time] 27.4 s Normal 23.0-32.4 [facility] Comment on above: Order Comment: Speci men Type: BLOOD SPECIMENOrdering Facility: [facility] Address: [address] [place] [address] Performed By: #### 3 4528-0, 01381-4 ####[facility] LABCLIA [id number] [address] [place] ARTERIAL BLOOD GASESon 07-30 Base deficit (BldA) [Moles/Vol] -6 mmol/L Low -2-0 [facility] Comment on above: Order Comment: Speci men Type: ARTERIAL BLOOD SPECIMENOrdering Facility: [facility] Address: [address] [place] [address] Performed By: #### A LLBG ####[facility] LABCLIA [id number] [place] [address] [place] Body temperature 98.6 [degF] Normal [facility] Comment on above: Order Comment: Speci men Type: ARTERIAL BLOOD SPECIMENOrdering Facility: [facility] Address: [address] [place] [address] Performed By: #### A LLBG ####[facility] LABCLIA [id number] [address] [place] Order Comment: Speci men Type: VENOUS BLOOD SPECIMENOrdering Facility: [facility] Address: [address] [place] [address] Performed By: #### 2 4344-4 ####[facility] LABCLIA [id number] [address] [place] Calcium.ionized (Bld) [Mass/Vol] 1.06 mmol/L Low 1.08-1.30 [facility] Comment on above: Order Comment: Speci men Type: ARTERIAL BLOOD SPECIMENOrdering Facility: [facility] Address: [address] [place] [address] Performed By: #### A LLBG ####[facility] LABCLIA [id number] [place] [address] [place] Calcium.ionized adjusted to pH 7.4 (BldA) [Moles/Vol] 1.01 mmol/L Low 1.08-1.30 [facility] Comment on above: Order Comment: Speci men Type: ARTERIAL BLOOD SPECIMENOrdering Facility: [facility] Address: [address] [place] [place] [address] Performed By: #### A LLBG ####[facility] LABIA [id number] [place] [address] [place] Carboxyhemoglobin (BldA) [Mass fraction] 1.0 % Normal 0.0-2.0 [facility] Comment on above: Order Comment: Speci men Type: ARTERIAL BLOOD SPECIMENOrdering Facility: [facility] Address: [address] [place] [address] Result Comment: Carb oxyhemoglobin Reference Range for Smokers: 2.0-8.0% Performed By: #### A LLBG ####[facility] LABIA [id number] [place] [address] [place] CO2 (Bld) [Partial pressure] 41 mm Hg Normal 36-46 [facility] Comment on above: Order Comment: Speci men Type: ARTERIAL BLOOD SPECIMENOrdering Facility: [facility] Address: [address] [place] [address] Performed By: #### A LLBG ####[facility] LABIA [id number] [place] [address] [place] CO2 [Moles/Vol] 21 mmol/L Low 25-29 [facility] Comment on above: Order Comment: Speci men Type: ARTERIAL BLOOD SPECIMENOrdering Facility: [facility] Address: [address] Performed By: #### A LLBG ####[facility] LABCLIA [id number] [address] [place] Order Comment: Speci men Type: VENOUS BLOOD SPECIMENOrdering Facility: [facility] Address: [address] Performed By: #### 2 4344-4 ####[facility] LABCLIA [id number] [place] [address] [place] Glucose [Mass/Vol] 85 mg/dL Normal 60-105 [facility] Comment on above: Order Comment: Speci men Type: ARTERIAL BLOOD SPECIMENOrdering Facility: [facility] Address: [address] Performed By: #### A LLBG ####[facility] LABCLIA [id number] [place] [address] [place] HCO3 (Bld) [Moles/Vol] 20 mmol/L Low 24-28 [facility] Comment on above: Order Comment: Speci men Type: ARTERIAL BLOOD SPECIMENOrdering Facility: [facility] Address: [address] Performed By: #### A LLBG ####[facility] LABCLIA [id number] [address] [place] Order Comment: Speci men Type: VENOUS BLOOD SPECIMENOrdering Facility: [facility] Address: [address] Performed By: #### 2 4344-4 ####[facility] LABCLIA [id number] [place] [address] [place] Hematocrit (Bld) [Volume fraction] 24.1 % Low 39.0-51.0 [facility] Comment on above: Order Comment: Speci men Type: ARTERIAL BLOOD SPECIMENOrdering Facility: [facility] Address: [address] Performed By: #### A LLBG ####[facility] LABCLIA [id number] [place] [address] [place] Hemoglobin (Bld) [Mass/Vol] 7.7 g/dL Low 13.0-17.0 [facility] Comment on above: Order Comment: Speci men Type: ARTERIAL BLOOD SPECIMENOrdering Facility: [facility] Address: [address] [place] [address] Performed By: #### A LLBG ####[facility] LABIA [id number] [place] [address] [place] Order Comment: Speci men Type: VENOUS BLOOD SPECIMENOrdering Facility: [facility] Address: [address] [place] [address] Performed By: #### 2 4344-4 ####[facility] [id number] [place] [address] [place] Lactate [Moles/Vol] 0.6 mmol/L Normal 0.5-2.2 [facility] Comment on above: Order Comment: Speci men Type: ARTERIAL BLOOD SPECIMENOrdering Facility: [facility] Address: [address] Performed By: #### A LLBG ####[facility] [id number] [place] [address] [place] Methemoglobin (Bld) [Mass fraction] 1.7 % High 0.0-1.5 [facility] Comment on above: Order Comment: Speci men Type: ARTERIAL BLOOD SPECIMENOrdering Facility: [facility] Address: [address] Performed By: #### A LLBG ####[facility] [id number] [place] [address] [place] O2 THERAPY RA=Room Air Normal [facility] Comment on above: Order Comment: Speci men Type: ARTERIAL BLOOD SPECIMENOrdering Facility: [facility] Address: [address] [place] [address] Performed By: #### A LLBG ####[facility] LABCLIA [id number] [place] [address] [place] Order Comment: Speci men Type: VENOUS BLOOD SPECIMENOrdering Facility: [facility] Address: [address] [place] [address] Performed By: #### 2 4344-4 ####[facility] LABCLIA [id number] [place] [address] [place] Oxygen (Bld) [Partial pressure] 58 mm Hg Low 85-95 [facility] Comment on above: Order Comment: Speci men Type: ARTERIAL BLOOD SPECIMENOrdering Facility: [facility] Address: [address] [place] [address] Performed By: #### A LLBG ####[facility] LABCLIA [id number] [place] [address] [place] Oxyhemoglobin (BldA) [Mass fraction] 85 % Low 95-98 [facility] Comment on above: Order Comment: Speci men Type: ARTERIAL BLOOD SPECIMENOrdering Facility: [facility] Address: [address] [place], [place] [address] Performed By: #### A LLBG ####[facility] LABCLIA [id number] [place] [address] [place] pH (Bld) 7.31 [pH] Low 7.35-7.45 [facility] Comment on above: Order Comment: Speci men Type: ARTERIAL BLOOD SPECIMENOrdering Facility: [facility] Address: [address] [place], [place] [address] Performed By: #### A LLBG ####[facility] LABCLIA [id number] [place] [address] [place] Potassium [Moles/Vol] 3.7 mmol/L Normal 3.5-5.0 [facility] Comment on above: Order Comment: Speci men Type: ARTERIAL BLOOD SPECIMENOrdering Facility: [facility] Address: [address] Performed By: #### A LLBG ####[facility] LABCLIA [id number] [address] [place] Order Comment: Speci men Type: VENOUS BLOOD SPECIMENOrdering Facility: [facility] Address: [address] [place] [address] Performed By: #### 2 4344-4 ####[facility] LABCLIA [id number] [place] [address] [place] Sodium [Moles/Vol] 140 mmol/L Normal 136-144 [facility] Comment on above: Order Comment: Speci men Type: ARTERIAL BLOOD SPECIMENOrdering Facility: [facility] Address: [address] Performed By: #### A LLBG ####[facility] LABCLIA [id number] [address] [place] CBC panel Auto (Bld)on 07-30 Erythrocyte distribution width (RBC) [Ratio] 15.0 % Normal 11.5-15.0 [facility] Comment on above: Order Comment: Speci men Type: BLOOD SPECIMENOrdering Facility: [facility] Address: [address] Performed By: #### 5 8410-2 ####[facility] LABCLIA [id number] [address] [place] Hematocrit (Bld) [Volume fraction] 23.3 % Low 39.0-51.0 [facility] Comment on above: Order Comment: Speci men Type: BLOOD SPECIMENOrdering Facility: [facility] Address: [address] Performed By: #### 5 8410-2 ####[facility] LABCLIA [id number] [address] [place] Hemoglobin (Bld) [Mass/Vol] 8.1 g/dL Low 13.0-17.0 [facility] Comment on above: Order Comment: Speci men Type: BLOOD SPECIMENOrdering Facility: [facility] Address: [address] [place] [address] Performed By: #### 5 8410-2 ####[facility] LABIA [id number] [address] [place] MCH (RBC) [Entitic mass] 29.8 pg Normal 26.0-34.0 [facility] Comment on above: Order Comment: Speci men Type: BLOOD SPECIMENOrdering Facility: [facility] Address: [address] [place] [address] Performed By: #### 5 8410-2 ####[facility] LABIA [id number] [address] STATES OF [facility] MCHC (RBC) [Mass/Vol] 34.8 g/dL Normal 30.5-36.0 [facility] Comment on above: Order Comment: Speci men Type: BLOOD SPECIMENOrdering Facility: [facility] Address: [address] [place], [place] [address] Performed By: #### 5 8410-2 ####[facility] LABIA [id number] [place] [address] [place] MCV (RBC) [Entitic vol] 85.7 fL Normal 80.0-100.0 [facility] Comment on above: Order Comment: Speci men Type: BLOOD SPECIMENOrdering Facility: [facility] Address: [address] [place], [place] [address] Performed By: #### 5 8410-2 ####[facility] LABIA [id number] [address] [place] Nucleated RBC (Bld) [#/Vol] 10*3/uL Normal <0.01 [facility] Comment on above: Order Comment: Speci men Type: BLOOD SPECIMENOrdering Facility: [facility] Address: [address] [place] [address] Performed By: #### 5 8410-2 ####[facility] LABCLIA [id number] [place] [address] [place] Platelet mean volume (Bld) [Entitic vol] 10.1 fL Normal 9.0-12.7 [facility] Comment on above: Order Comment: Speci men Type: BLOOD SPECIMENOrdering Facility: [facility] Address: [address] [place] [address] Performed By: #### 5 8410-2 ####[facility] LABCLIA [id number] [place] [address] [place] Platelets (Bld) [#/Vol] 89 10*3/uL Low 150-400 [facility] Comment on above: Order Comment: Speci men Type: BLOOD SPECIMENOrdering Facility: [facility] Address: [address] [place] [address] Result Comment: No c lot detected. Performed By: #### 5 8410-2 ####[facility] [place] LABCLIA [id number] [place] [address] [place] [place] RBC (Bld) [#/Vol] 2.72 10*6/uL Low 4.20-6.00 [facility] Comment on above: Order Comment: Speci men Type: BLOOD SPECIMENOrdering Facility: [facility] Address: [address] [place], [place] [address] Performed By: #### 5 8410-2 ####[facility] LABCLIA [id number] [place] [address] [place] WBC (Bld) [#/Vol] 5.85 10*3/uL Normal 3.70-11.00 [facility] Comment on above: Order Comment: Speci men Type: BLOOD SPECIMENOrdering Facility: [facility] Address: [address] Performed By: #### 5 8410-2 ####[facility] [place] LABCLIA [id number] [address] STATES [facility] Erythrocyte distribution width (RBC) [Ratio] 15.0 % Normal 11.5-15.0 [facility] Comment on above: Order Comment: Speci men Type: BLOOD SPECIMENOrdering Facility: [facility] Address: [address] [place], [place] [address] Performed By: #### 5 8410-2 ####[facility] [place] LABCLIA [id number] [place] [address] [place] Hematocrit (Bld) [Volume fraction] 21.2 % Low 39.0-51.0 [facility] Comment on above: Order Comment: Speci men Type: BLOOD SPECIMENOrdering Facility: [facility] Address: [address] [place], [place] [address] Performed By: #### 5 8410-2 ####[facility] [place] LABCLIA [id number] [place] [address] [place] Hemoglobin (Bld) [Mass/Vol] 7.6 g/dL Low 13.0-17.0 [facility] Comment on above: Order Comment: Speci men Type: BLOOD SPECIMENOrdering Facility: [facility] Address: [address] [place], [place] [address] Performed By: #### 5 8410-2 ####[facility] [place] LABCLIA [id number] [place] [address] [place] MCH (RBC) [Entitic mass] 30.6 pg Normal 26.0-34.0 [facility] Comment on above: Order Comment: Speci men Type: BLOOD SPECIMENOrdering Facility: [facility] Address: [address] [place], [place] [address] Performed By: #### 5 8410-2 ####[facility] [place] LABCLIA [id number] [place] [address] [place] MCHC (RBC) [Mass/Vol] 35.8 g/dL Normal 30.5-36.0 [facility] Comment on above: Order Comment: Speci men Type: BLOOD SPECIMENOrdering Facility: [facility] Address: [address] [place] [address] Performed By: #### 5 8410-2 ####[facility] [place] [facility] [id number] [place] [address] [place] MCV (RBC) [Entitic vol] 85.5 fL Normal 80.0-100.0 [facility] Comment on above: Order Comment: Speci men Type: BLOOD SPECIMENOrdering Facility: [facility] Address: [address] [place] [address] Performed By: #### 5 8410-2 ####[facility] [id number] [place] [address] [place] Nucleated RBC (Bld) [#/Vol] 10*3/uL Normal <0.01 [facility] Comment on above: Order Comment: Speci men Type: BLOOD SPECIMENOrdering Facility: [facility] Address: [address] [place], [place] [address] Performed By: #### 5 8410-2 ####[facility] [id number] [place] [address] [place] Platelet mean volume (Bld) [Entitic vol] 10.4 fL Normal 9.0-12.7 [facility] Comment on above: Order Comment: Speci men Type: BLOOD SPECIMENOrdering Facility: [facility] Address: [address] [place], [place] [address] Performed By: #### 5 8410-2 ####[facility] [place] [facility] [id number] [place] [address] [place] Platelets (Bld) [#/Vol] 75 10*3/uL Low 150-400 [facility] Comment on above: Order Comment: Speci men Type: BLOOD SPECIMENOrdering Facility: [facility] Address: [address] Result Comment: No c lot detected. Performed By: #### 5 8410-2 ####[facility] [place] LABCLIA [id number] [place] [address] [place] RBC (Bld) [#/Vol] 2.48 10*6/uL Low 4.20-6.00 [facility] Comment on above: Order Comment: Speci men Type: BLOOD SPECIMENOrdering Facility: [facility] Address: [address] [place] [address] Performed By: #### 5 8410-2 ####[facility] [place] LABCLIA [id number] [place] [address] [place] WBC (Bld) [#/Vol] 5.20 10*3/uL Normal 3.70-11.00 [facility] Comment on above: Order Comment: Speci men Type: BLOOD SPECIMENOrdering Facility: [facility] Address: [address] [place] [address] Performed By: #### 5 8410-2 ####[facility] [place] LABCLIA [id number] [address] OF [facility] CONFIRM BLOOD TYPEon 023 ABO B Normal [facility] Comment on above: Order Comment: Speci men Type: BLOOD SPECIMENOrdering Facility: [facility] Address: [address] [address] Performed By: #### C ONABO ####[facility] BLOOD BANKCLIA [id number] [place] [address] [place] Rh Nom (Bld) Positive Normal [facility] Comment on above: Order Comment: Speci men Type: BLOOD SPECIMENOrdering Facility: [facility] Address: [address] [place] [address], [place] [address] Performed By: #### C ONAB ####[facility] BLOOD BANKBRATTLEB[facility] [id number] [facility] [place] [address] [place] CONSULT PROGon 07-30-2022 CONSULT PROG Normal [facility] Coding Summary.on 07-30-2022 Coding Summary. CD:[id number] Gh0b Ww+PGhlYWQ+JY4SUADwT55bs JPaaS2jL0CBJKoETfgcLXPIT GeMReJlllDzPU0qgAYiYFXb IC8+BC2sPLYoAroypROws5V5 lRN9B42emv7nRNpntLZ3ZUWm MdLwfwjki6pdkEs6AVdtHyyu OyBt TDHxrQ66HUH1oU38Us36pRGj jDPpe5urfYy0MdLaOPWjAVW7 eFvvYJjao3SaNRAeT97nnOQc c2U6 KUIqvShgrBGrQwVkuSM1kW0n MLllywohg2zoaatyZaw5ms28 pFMfw0H9cPQ7C0UfdpB1FMYn bGQg TkwfaIAQpT0ujjhcj6jemcne OrDnUEMnWTh4ORo7RVUwjXny PtAwHA07HVN2MQVcdcGeB2Bx LWFs yEbpRwG6z9H4Vz0GK3QQOyxv Y2BCGZYUCSpnoTQ+UJ67tj43 S1HwBderVvi9CAYzMSI5kCE1 aD0n PWAxBBxky3F1aVD3K2OrvrNx df4ke9hcYJSePFieE70bpAEu k1N7XYPxwMB0GTBjjRgzKtXb aG93 Oyc+JAEitSudb2SpYjywg2mu j1mhmPe8OoplGLLzjkJqhHef BPP0x5SsYy6hNUGdcVW8pNQ3 aD0i TgIxUqC5LSogC244PoOuaUOy BxryS80wQ1RboFM+PHRyPjx0 PHQjwVvwRA5xN0CzSYTsaxvo bGVm rUhuYS6uUFVbpicmXJLzkV8u FDBcN3y2JbVuGoW8QZydH9Xt QTEbvyogRk77oQ4mGfAqHrB5 MGlu N6OnnrU9MTUhdTYtTOpuUWH3 O20yh5I1GISbHTJnONG0rCP4 kR1fsAfcafiuyFKokYunmcTd dGlj ZPhuGKrlO843AAOzbKytZxLg ZGluZyBEYXRlOiAgMDMvMTUv MjAyMzwvdGQ+XYAaXOC7hSrs PSAn tCGoZZpwAu2pvKpdcSapON5c WMPrzczeHUNrkW9kWJAhzZNb fPgjJO4wZAFjoyhce164JtCq MHB0 FZQaxHLdN1OptB5zZsCiZCBl IVVjC7MopMZtSWfcH131NLey JrI8XJZszkXeO4AkCWBecYvx OiB0 z1G3Yx6Fi6QvngfpE5KvhFNj BeLrWcjsPQa0O4ZgOncdoYJ+ MQ27ASAgEF86BSe3NEV9yHqg PSdi YMJdX1ZetD3zMmZmVEGvCTBx Oyc+PHRhYmxlIHdpZHRoPScx XRWgOfZftPclHY2fDd0gJNNx LWNv uWprnPBvNtDfg6jfQMMmSKky TS0qzZazX9NssUX5FCUhh3g1 Wa88P39hQ1YaiNF+PGNvbCB3 aWR0 dX6iNwXgFxP3IQtzQ931TvTg pSTgXeoae0zrb6xdlNn3ObK2 CPWvjgEqvBbvDVP3h5SfRa24 Y29s IHdpZHRoPSIxNSUiIHZhbGln bx9dqS5lKh1+DTOrzQM0nEO8 aN7kRnQbGuJ5YDqvD896VjYp cCIv Veesn6baz4kluAm6HmDkWMMg rwCkrIbuPDU0d8GgNn52X7Ak kAsgh6FoCrl8ki27nGQjy7D9 bGU9 M5NrZECtlmdvdMVmvRvrXT5e QMUdszgnGDCqwB7qTULuQ0m0 ZkMsXoZ1WZuiG5JbrsJ5EUFh bGQg JBJhhHZDiY5msatcz6cajuen AfMvNKApKPi9WXx0NOBjwEzu LdNiADA3XvI0WJQ4gKTpfI4b bGln olfljQ7qEuc+QQH2hFZojIFA QB9fDyxruUC+QPRjJEI2bBkm GKwwNCGsfF2lHOCyH5y5JnSv LjA1 PItoH6IutnU3TJLakEJaKANh xWPToI2lhuman7bapmxuMsXr BRHfKBn0DSe5AGTfcEupOlVt ZWZ0 EtB5PRK2aILkpH1qhFcqvesx qP4vKpt+GajinRmpNMJ5KMa3 C3GoTma2ZVRttBrsJU6flIUn ZGlu Dv0djRmwxCtrCU5pLMFywvhf d500UhFvt7dhMWRyyTUtWLcg VWK5L47dp1W6IIQuWASyGBP6 dGV4 uG9mbKngymhhwGUynIxcemKf gIizKCuhTYxsU768GQWmhEba AfDeGKs8H4UtWbi6VIBcxWzx ZT0n oVLnALenDq2tbMmjpFexHC5d CEDxfbzgb428PxKau5dhRWUq yAKtDRjnMMG5U73mv5R6NXGy MDAw JEI1rAS1uV6mcZiubofyqXJa pNrelnFbtQmmSSaiAGuuG543 DGVrkJhxEoLpnRk1U4XeVwk6 ZCBz iDtnKK7snTNnCEsaIk1jlLxi cCehXK7aMLWmlqmcv843TkCj u2lbFZWipFDdFXqdUIX5H78c b3I6 VAWqFDLwPER9vYR3bO1rtAhp bjogbGVmdDsgdmVydGljYWwt PBivX327TUDkwKscCpBhoFde bnQg FCmmDVd1F7XtNtujwWQ+PC90 ZRWrDW90lXVhsQGvx2iwgTx7 HyVxKFCoDNA8rOjzXZxre7Py ZXIt O69syPRpn9G8SBNudBazxRQo CoHdeQY6qL0dGWmkpukbp3lq pihlYiwun6eevc79pX99N05t IHdp DGKqRNJmBTWnOLTrlYavyi2p oH7vAb4+HAUqhSH7qXY8cW0i OAZeNaV0JJhxM521NxPkiIEv Pjxj v0epf8finFm5MtQ0SZJgnlIb gTsvTRP3e7PqAx09L78aQYmh GDDrVSAsVNMqGKWrmZkant5s dG9w Ii8+ZIAhcRN7cJC0tG2hXrEj NdP1YNusN481IsMocCAxXbvq K16iQ9IbiIH+WLKgQzs5QBLl dHls KZ3gyLPvROpsBq4gPEO5BeVk YyIqYOnpG9ZnXVBhnfvlikbr aPG7TPRrWYIeeU32Cn2kxWqg MTBw vRCHsO7wznjrn9fgxcpjCmRv ESMaGOm6MYe3IDQgySoqFsPc YUS0JlN6TFD5iDHvzS8svUag bjog tW5vH5UpBCXcqofjYt72sI0q GfHqOaZ8ELkpPzs+QlJBTkRB MMtyWCVEPqlYUZ09TX91lKIu c3R5 sBL8U4EyNRIpgxvhrqeiqJK7 GUNdYLFamZ70rOAdMXvfGo9w a7W3a031YJYfNHMugM02Zt7j dDog MEJmfSIRgF7qhlnuq9lwmmoz MrMjGAHcDCz7BMi0VPQcnSpf GoXpIDS6QqF0QKQ3nGKwxZ7r bGln rgfyiJ0rHbe+MDcvMjEvMTk1 ODwvdGQ+ZYMgHME4xBlsDFff CMDwiU4rHHNaZ0e9SgEzYuP0 MGlu R2RnBMPojryrJg33sR8cJnKu LnH3IYbxO2DftzS8XXXecFDr DSbnHEV3C04yl4S9PKTjCKAv MDA7 lIM4cU1lhHkljibfeJMhjUwu azAznIqsGUdzVEfhW621QWMg zQqtEpX2YHyqZUIiUF82SS51 dGQg q6S4tBT5X8NoDLNclqpfsrkw yZE9SUSmSDTkrB40xVWkXFzz Yi2en4P4h557ZBYxUBKcyM61 Zm9u tXzuWOBmqOXPzM4lqwvjt3al dzsxAlKwCYFpORi2WOl5MBLu cUwtOpGoBNJ3QvC8CLO7qXKf bC1h pAgjezjiqL1mZuz+TWFsZTwv dGQ+IFOyDLP7jHcyCJavGTGv uQ5oAJUkN3w8FpTyJoU4GAfl O3Bh HKGpeoxcFg62lX6cKsLmFrZ7 HBopO2XqksS0HCGqxSNhSTqs XVB8P55sj3N0BEBxPHSgTBS8 dGV4 eT1ipUthsncwuDIxqArkvzCm zCqeVWhbERmsF778CGSfwHzn IlXuIBVlCW5cnHcbqUY+PC90 cj48 W6HzMitdXwo2EJZcMYD4aLU1 nE9xKPIeSUdlv1H0mTM7A6Dj ivKwng5zn1rfYZRjYDzfO03r bGFw a2K6LSQvgLU2ZEBulNcrOzVg pR19Ivm+YYPnkWyuw4AxFbdx b5ptd3oszFs7QhMuKRWosuWt aWdu KVY4u1VgFm09I41lVLizQNYl EWFjFORoMUVibZwcju1foS5z Ii8+DCCmwCH6wDG9eD2pWiDg IiB2 THnuQ815CgQemIZsFpvjy5sr n6jcoEm7VxAxHBBomoNydCag IRC0t2JbGj22Q5CvcImly1Fc Pjx0 fb29wSRzy0M7lMJ0L2EgTMNm tynbwGStjTqgEH8mAOHfkynb JIRoiX7nWWVmI1d4MuScQhS9 MGlu V2YrbaR0UMGkwEDmSHXjlSVA vF4uyplvl2hyshheKgHiDGVl EVt3BGy5WGOraGmuCgTsUSO3 OyB2 TGT9hSBplK1ouAxnxtmoyE9v Oyc+FIp2p4wjhJKeUS1wvPG7 LN50PN18gDAth7Y5jLB5W5Zn ZGRp pksxjlmekIA2DRVnLKFpbG47 We6tdBmjIf5mGDCkYON3EOIb kVNvT6UevR0vPdPyWYDmDYJa O3Rl mYVmCGkvW129GQouKcD3LAJx bmYdM6OjMCUgwJorBbF1t5S7 Jf4XWW49YU05BT31qMKei7T9 bGU9 N2VjZOJqumrisacqnYW5YWTf MHDjgV47Yq2kcZayWs6nOOUv ZZS7GZWzsZAdV2HzwS3wSoFx MDAw CKQcU2BrxBVtTOlnF752MUcy OwA6OUFynwWwP8QkWYGyfGdh FxM4o1H8Kv1CWs99XT59UJ18 dGQg w2T2fMU9S9WqBCTdepelkuju dIZ5NBPmVSTmtR33Iy6kuEfz Db5lHZKbEYL4ORAttBWvK9Xp bG9y UeNiCYOiFOKaT1WdfXQaIQuq G601HTytPcD8ZEEeoyJkA7Al XEDvoDhoUmA5v7D6It5VOWkf cjo8 J6SaBceohLE+SK02AFQiSK92 uKSdgBHzu7ptgSb4QmBeUEQk MMX4xTcbHNjfe6QyYZCcF45i bGFw c2U6 (more content not included)... Normal [facility] Comprehensive metabolic 2000 panelon 07-30-2022 Albumin [Mass/Vol] 2.4 g/dL Low 3.9-4.9 [facility] Comment on above: Order Comment: Speci men Type: BLOOD SPECIMENOrdering Facility: [facility] Address: [address] [place] [address] Performed By: #### H STNT, 63949-9, 2777-1, 37088-0 ####[facility] [id number] [place] [address] [place] ALP [Catalytic activity/Vol] 28 U/L Low 38-113 [facility] Comment on above: Order Comment: Speci men Type: BLOOD SPECIMENOrdering Facility: [facility] Address: [address] [place] [address] Performed By: #### H STNT, 97636-7, 2777-1, 78394-8 ####[facility] [id number] [address] [place] ALT [Catalytic activity/Vol] 12 U/L Normal 10-54 [facility] Comment on above: Order Comment: Speci men Type: BLOOD SPECIMENOrdering Facility: [facility] Address: [address] [address] Performed By: #### H STNT, 30789-4, 2776-1, 70471-4 ####[facility] LABCLIA [id number] [place] [address] [place] Anion gap [Moles/Vol] 18 mmol/L Normal 9-18 [facility] Comment on above: Order Comment: Speci men Type: BLOOD SPECIMENOrdering Facility: [facility] Address: [address] [place], [place] [address] Performed By: #### H STNT, , 2776-, 75075-9 ####[facility] LABCLIA [id number] [place] [address] [place] AST [Catalytic activity/Vol] 19 U/L Normal 14-40 [facility] Comment on above: Order Comment: Speci men Type: BLOOD SPECIMENOrdering Facility: [facility] Address: [address] [place] [place] [address] Performed By: #### H STNT, , 2776-05, 04556-7 ####[facility] LABCLIA [id number] [place] [address] [place] Bilirubin [Mass/Vol] 0.3 mg/dL Normal 0.2-1.3 [facility] Comment on above: Order Comment: Speci men Type: BLOOD SPECIMENOrdering Facility: [facility] Address: [address] [place] [address] Performed By: #### H STNT, , 2776-05, 77234-0 ####[facility] LABCLIA [id number] [place] [address] [place] Calcium [Mass/Vol] 6.8 mg/dL Low 8.5-10.2 [facility] Comment on above: Order Comment: Speci men Type: BLOOD SPECIMENOrdering Facility: [facility] Address: [address] [place] [address] Performed By: #### H STNT, 63297-9, 2776-05, 30085-7 ####[facility] LABCLIA [id number] [place] [address] [place] Chloride [Moles/Vol] 110 mmol/L High 97-105 [facility] Comment on above: Order Comment: Speci men Type: BLOOD SPECIMENOrdering Facility: [facility] Address: [address] [place], [place] [address] Performed By: #### H STNT, , 2776-05, 27491-8 ####[facility] LABCLIA [id number] [place] [address] [place] CO2 [Moles/Vol] 17 mmol/L Low 22-30 [facility] Comment on above: Order Comment: Speci men Type: BLOOD SPECIMENOrdering Facility: [facility] Address: [address] [place], [place] [address] Performed By: #### H STNT, , 2776-05, 74842-9 ####[facility] LABCLIA [id number] [place] [address] [place] Creatinine [Mass/Vol] 7.03 mg/dL High 0.73-1.22 [facility] Comment on above: Order Comment: Speci men Type: BLOOD SPECIMENOrdering Facility: [facility] Address: [address] [place], [place] [address] Performed By: #### H STNT, , 2776-05, 53836-2 ####[facility] LABCLIA [id number] [place] [address] [place] ESTIMATED GLOMERULAR FILTRATION RATE 8 mL/min/1.73m??? Low >=60 [facility] Comment on above: Order Comment: Speci men Type: BLOOD SPECIMENOrdering Facility: [facility] Address: [address] [place] [address] Result Comment: Lamar mated Glomerular Filtration Rate (eGFR) is calculated using the 2020 CKD-EPI creatinine equation. This equation utilizes serum creatinine, sex, and age as parameters. The creatinine assay has traceable calibration to isotope dilution-mass spectrometry. Refer to KDIGO guidelines for clinical interpretation. In patients with unstable renal function, e.g. those with acute kidney injury, the eGFR may not accurately reflect actual GFR. Performed By: #### H STNT, , 2776-05, ####[facility] LABCLIA [id number] [address] [address] [place] Glucose [Mass/Vol] 92 mg/dL Normal 74-99 [facility] Comment on above: Order Comment: Chayito hudson Type: BLOOD SPECIMENOrdering Facility: [facility] Address: [address] [place], [place] [address] Result Comment: The [place] [employer] (ADA) provides guidance for cutoff values for fasting glucose and random glucose. The ADA defines fasting as no caloric intake for at least 8 hours. Fasting plasma glucose results between 100 to 125 mg/dL indicate increased risk for diabetes (prediabetes).Fasting plasma glucose results greater than or equal to 126 mg/dL meet the criteria for diagnosis of diabetes. In the absence of unequivocal hyperglycemia, results should be confirmed by repeat testing. In a patient with classic symptoms of hyperglycemia or hyperglycemic crisis, random plasma glucose results greater than or equal to 200 mg/dL meet the criteria for diagnosis of diabetes.Reference: Standards of Medical Care in Diabetes 2016, [place] [employer]. Diabetes Care. 2016.39(Suppl 1). Performed By: #### H STNT, , 2776-05, ####[facility] LABCLIA [id number] [address] [address] [place] Potassium [Moles/Vol] 3.8 mmol/L Normal 3.7-5.1 [facility] Comment on above: Order Comment: Chayito hudson Type: BLOOD SPECIMENOrdering Facility: [facility] Address: [address] [place] [address] Performed By: #### H STNT, , 2776-05, ####[facility] LABCLIA [id number] [address] [address] [place] Protein [Mass/Vol] 3.7 g/dL Low 6.3-8.0 [facility] Comment on above: Order Comment: Speci men Type: BLOOD SPECIMENOrdering Facility: [facility] Address: [address] [place], [place] [address] Performed By: #### H STNT, , 2776-05, ####[facility] LABIA [id number] [place] [address] [place] Sodium [Moles/Vol] 145 mmol/L High 136-144 [facility] Comment on above: Order Comment: Speci men Type: BLOOD SPECIMENOrdering Facility: [facility] Address: [address] [place], [place] [id number] Performed By: #### H STNT, , 2776-05, ####[facility] [place] LABIA [id number] [place] [address] [place] Urea nitrogen [Mass/Vol] 107 mg/dL High 9-24 [facility] Comment on above: Order Comment: Speci men Type: BLOOD SPECIMENOrdering Facility: [facility] Address: [address] [place], [place] [id number] Performed By: #### H STNT, , 2776-05, ####[facility] [place] LABIA [id number] [place] [id number] [place] Gas and Carbon monoxide pane l (BldV)on 07-30-2022 BASE DEFICIT, VENOUS -6 mmol/L Low -2-0 [facility] Comment on above: Order Comment: Speci men Type: VENOUS BLOOD SPECIMENOrdering Facility: [facility] Address: [address] [place], [place] [id number] Performed By: #### 2 4344-4 ####[facility] [place] LABIA [id number] [place] [address] [place] Calcium.ionized (Bld) [Mass/Vol] 1.08 mmol/L Normal 1.08-1.30 [facility] Comment on above: Order Comment: Speci men Type: VENOUS BLOOD SPECIMENOrdering Facility: [facility] Address: [address] [place] [address] Performed By: #### 2 4344-4 ####[facility] [id number] [place] [address] [place] Calcium.ionized adjusted to pH 7.4 (BldA) [Moles/Vol] 1.02 mmol/L Low 1.08-1.30 [facility] Comment on above: Order Comment: Speci men Type: VENOUS BLOOD SPECIMENOrdering Facility: [facility] Address: [address] [place] [address] Performed By: #### 2 4344-4 ####[facility] [id number] [place] [address] [place] Carboxyhemoglobin (BldV) [Mass fraction] 1.4 % Normal 0.0-2.0 [facility] Comment on above: Order Comment: Speci men Type: VENOUS BLOOD SPECIMENOrdering Facility: [facility] Address: [address] [place], [place] [id number] Result Comment: Carb oxyhemoglobin Reference Range for Smokers: 2.0-8.0% Performed By: #### 2 4344-4 ####[facility] [id number] [place] [address] [place] CO2 (BldV) [Partial pressure] 40 mm[Hg] Low 42-55 [facility] Comment on above: Order Comment: Speci men Type: VENOUS BLOOD SPECIMENOrdering Facility: [facility] Address: [address] [place] [address] Performed By: #### 2 4344-4 ####[facility] [place] LABCLIA [id number] [place] [address] [place] Glucose [Mass/Vol] 88 mg/dL Normal 60-105 [facility] Comment on above: Order Comment: Speci men Type: VENOUS BLOOD SPECIMENOrdering Facility: [facility] Address: [address] [place] [address] Performed By: #### 2 4344-4 ####[facility] [place] LABIA [id number] [place] [address] [place] Hematocrit (Bld) [Volume fraction] 24.0 % Low 39.0-51.0 [facility] Comment on above: Order Comment: Speci men Type: VENOUS BLOOD SPECIMENOrdering Facility: [facility] Address: [address] [place] [address] Performed By: #### 2 4344-4 ####[facility] [place] LABIA [id number] [place] [address] [place] Lactate [Moles/Vol] 0.7 mmol/L Normal 0.5-2.2 [facility] Comment on above: Order Comment: Speci men Type: VENOUS BLOOD SPECIMENOrdering Facility: [facility] Address: [address] [place] [address] Performed By: #### 2 4344-4 ####[facility] [place] LABIA [id number] [address] [place] Methemoglobin (Bld) [Mass fraction] 1.1 % Normal 0.0-1.5 [facility] Comment on above: Order Comment: Speci men Type: VENOUS BLOOD SPECIMENOrdering Facility: [facility] Address: [address] [place], [place] [id number] Performed By: #### 2 4344-4 ####[facility] [place] LABIA [id number] [place] [address] [place] Oxygen (BldV) [Partial pressure] 55 mm[Hg] High 35-45 [facility] Comment on above: Order Comment: Speci men Type: VENOUS BLOOD SPECIMENOrdering Facility: [facility] Address: [address] Performed By: #### 2 4344-4 ####[facility] [place] LABCLIA [id number] [place] [address] [place] Oxygen saturation in Venous blood 85 % Normal 60-85 [facility] Comment on above: Order Comment: Speci men Type: VENOUS BLOOD SPECIMENOrdering Facility: [facility] Address: [address] Performed By: #### 2 4344-4 ####[facility] [place] LABCLIA [id number] [place] [address] [place] Oxyhemoglobin (BldV) [Mass fraction] 83 % Normal 60-85 [facility] Comment on above: Order Comment: Speci men Type: VENOUS BLOOD SPECIMENOrdering Facility: [facility] Address: [address] Performed By: #### 2 4344-4 ####[facility] [place] LABCLIA [id number] [place] [address] [place] pH (BldV) 7.31 [pH] Low 7.32-7.42 [facility] Comment on above: Order Comment: Speci men Type: VENOUS BLOOD SPECIMENOrdering Facility: [facility] Address: [address] [place] [address] Performed By: #### 2 4344-4 ####[facility] [place] LABCLIA [id number] [place] [address] [place] Sodium [Moles/Vol] 141 mmol/L Normal 136-144 [facility] Comment on above: Order Comment: Speci men Type: VENOUS BLOOD SPECIMENOrdering Facility: [facility] Address: [address] Performed By: #### 2 4344-4 ####[facility] [place] LABCLIA [id number] [address] HIGH SENSITIVITY TROPONIN To n 07-30-2022 HIGH SENSITIVITY MIGUEL A 69 ng/L High <12 [facility] Comment on above: Order Comment: Speci men Type: BLOOD SPECIMENOrdering Facility: [facility] Address: [address] [place] [address] Result Comment: When assessing risk for acute coronary syndromes: In patients undergoing blood draw greater than or equal to 2 hours from symptom onset, with history of very low to moderate risk and non-ischemic ECG, an initial hs-Troponin T less than 12 ng/L AND a 1 hour delta hs-Troponin T less than 3 ng/L should be considered very low risk for 30 day MACE. Performed By: #### H STNT, 72630-9, 2777-1, 13493-5 ####[facility] [place] LABIA [id number] [address] Magnesium SerPl-mCncon 07-30 Magnesium [Mass/Vol] 2.5 mg/dL High 1.7-2.3 [facility] Comment on above: Order Comment: Moshei men Type: BLOOD SPECIMENOrdering Facility: [facility] Address: [address] [place] [address] Performed By: #### H STNT, 05311-6, 2777-1, 77048-5 ####[facility] [place] LABIA [id number] [address] [place] PT panel Coag (PPP)on 2022 INR Coag (PPP) [Relative time] 1.1 {INR} Normal 0.9-1.3 [facility] Comment on above: Order Comment: Speci men Type: BLOOD SPECIMENOrdering Facility: [facility] Address: [address] [place] [address] Result Comment: Lisa min K Antagonist (VKA) Therapeutic Range: INR 2 to 3 (Target INR of 2.5)Note: For patients treated with VKA drugs, such as warfarin, the [place] [employer] 2012 Guideline recommends a therapeutic INR range of 2 to 3 (target INR of 2.5). This recommendation includes high-risk patients with antiphospholipid syndrome with previous arterial or venous thromboembolism, current-generation mechanical or bioprosthetic aortic heart valve replacement.Note: Patients with mechanical aortic valve replacement and additional risk factors for thromboembolic events (atrial fibrillation, previous thromboembolism, LV dysfunction, hypercoagulable conditions) or an older generation mechanical AVR (i.e., ball in-Cage) or any mechanical MVR should have a INR therapeutic range of 2.5 to 3.5 (target INR of 3).Tannatt GH, et al. Chest 2012, 141:7S-47SNishimura RA, et al. [facility] 2017, 70: 252-289 Performed By: #### 3 4528-0, 34924-6 ####[facility] [place] LABCLIA [id number] [place] [address] [place] PT Coag (PPP) [Time] 11.0 s Normal 9.7-13.0 [facility] Comment on above: Order Comment: Speci men Type: BLOOD SPECIMENOrdering Facility: [facility] Address: [address] [place] [address] Performed By: #### 3 4528-0, 35785-2 ####[facility] [place] LABCLIA [id number] [place] [address] [place] Phosphate SerPl-mCncon 07-30 Phosphate [Mass/Vol] 5.8 mg/dL High 2.7-4.8 [facility] Comment on above: Order Comment: Speci men Type: BLOOD SPECIMENOrdering Facility: [facility] Address: [address] [place] [address] Performed By: #### H STNT, 63771-6, 2777-1, 94963-0 ####[facility] [place] LABCLIA [id number] [place] [address] [place] Procalcitonin SerPl-mCncon 0 07-30-2022 Procalcitonin [Mass/Vol] 0.32 ng/mL High <0.09 [facility] Comment on above: Order Comment: Speci men Type: BLOOD SPECIMENOrdering Facility: [facility] Address: [address] [place] [address] Result Comment: For a guided interpretation of test results, please visit the Change in Procalcitonin Calculator, [email or web address]. Performed By: #### 3 3959-8 ####[facility] [place] LABCLIA [id number] [place] [address] [place] Sodium SerPl-sCncon 07-31-19 Sodium [Moles/Vol] 144 mmol/L Normal 136-144 [facility] Comment on above: Order Comment: Speci men Type: BLOOD SPECIMENOrdering Facility: [facility] Address: [address] [place] [address] Performed By: #### 2 951-2 ####[facility] [place] LABIA [id number] [address] STATES [facility] Sodium [Moles/Vol] 144 mmol/L Normal 136-144 [facility] Comment on above: Order Comment: Speci men Type: BLOOD SPECIMENOrdering Facility: [facility] Address: [address] [place] [address] Performed By: #### 2 951-2 ####[facility] [place] LABIA [id number] [place] [address] [place] Sodium [Moles/Vol] 143 mmol/L Normal 136-144 [facility] Comment on above: Order Comment: Speci men Type: BLOOD SPECIMENOrdering Facility: [facility] Address: [address] [place] [address] Performed By: #### 2 951-2 ####[facility] [place] LABIA [id number] [address] [facility] THERAPY NTon 07-30-2022 THERAPY NT Normal [facility] THERAPY NT Normal [facility] TYPE + SCREENon 07-30-2022 ABO B Normal [facility] Comment on above: Order Comment: Speci men Type: BLOOD SPECIMENOrdering Facility: [facility] Address: [address] [place] [address] Performed By: #### T SCR ####CC MAIN BLOOD BANKCLIA [id number] [address] HISTORICAL AB SCR STATUS Negative Normal [facility] Comment on above: Order Comment: Speci men Type: BLOOD SPECIMENOrdering Facility: [facility] Address: [address] [place] [address] Performed By: #### T SCR ####CC MAIN BLOOD BANKCLIA [id number] [address] [place] Rh Nom (Bld) Positive Normal [facility] Comment on above: Order Comment: Speci men Type: BLOOD SPECIMENOrdering Facility: [facility] Address: [address] [place] [address] Performed By: #### T SCR ####CC MAIN BLOOD BANKCLIA [id number] [address] TYPE AND SCREEN EXPIRATION 08/02/2022 23:59 Normal [facility] Comment on above: Order Comment: Speci men Type: BLOOD SPECIMENOrdering Facility: [facility] Address: [address] [place] [address] Performed By: #### T SCR ####CC MAIN BLOOD BANKCLIA [id number] [place] [address] [place] XR GI SMALL BOWEL FOLLOW-THR Uon 07-30-2022 XR GI SMALL BOWEL FOLLOW-THRU Normal [facility] XR UPPER GI SINGLE CONTRASTo n 07-30-2022 XR UPPER GI SINGLE CONTRAST Normal [facility] aPTT PPPon 03-15-2023 aPTT Coag (PPP) [Time] 25.5 s Normal 23.0-32.4 [facility] Comment on above: Order Comment: Speci men Type: BLOOD SPECIMENOrdering Facility: [facility] Address: [address] [place] [id number] Performed By: #### 3 4528-0, 14775-3 ####[facility] [place] LABCLIA [id number] [id number] [place] KIRK Screen w/reflexon 2022 KIRK Screen Negative Normal NEG [facility] Comment on above: Performed By: #### P T, CBC #### [address] [id number] Meat Counter Worker: Evelio Vasquez MD Anti-dsDNA 0.6 IU/mL Normal <10.[address] [facility] Comment on above: Result Comment: Reference Range: <10.0 Negative 10.0-15.0 Equivocal >15.0 Positive Performed By: #### P T, CBC #### [address] [address] Meat Counter Worker: Evelio Vasquez MD MARIO Screen 0.2 U/mL Normal <0.[address] [facility] Comment on above: Result Comment: Reference Range: <0.7 Negative 0.7-1.0 Equivocal >1.0 Positive MARIO Screen includes U1RNP,RNP70,Sm,Ro(SS-A),La(SS-B),CENP,Scl-70,Sharon-1 Performed By: #### P T, CBC #### [address] [address] Meat Counter Worker: Eveilo Vasquez MD Basic Metabolic Profon 07-298 Creatinine [Mass/Vol] 6.81 mg/dL Critically high 0.70-1.[address] [facility] Comment on above: Result Comment: Prev ious Alert Value Reported Performed By: #### B MP #### [address] [address] Meat Counter Worker: Evelio Vasquez MD GFR/1.73 sq M.predicted among non-blacks MDRD (S/P/Bld) [Vol rate/Area] 8 mL/min/{1.73_m2} Low >[address] [facility] Comment on above: Result Comment: These results are not intended for use in patients <18 years of age. eGFR results are calculated without a race factor using the 2020 CKD-EPI equation. Careful clinical correlation is recommended, particularly when comparing to results calculated using previous equations. The CKD-EPI equation is less accurate in patients with extremes of muscle mass, extra-renal metabolism of creatine, excessive creatine ingestion, or following therapy that affects renal tubular secretion. Performed By: #### B MP #### [address] [address] Meat Counter Worker: Evelio Vasquez MD Urea nitrogen [Mass/Vol] 119 mg/dL Critically high 8-[address] [facility] Comment on above: Result Comment: Prev ious Alert Value Reported Performed By: #### B MP #### [address] [address] Meat Counter Worker: Evelio Vasquez MD Anion gap [Moles/Vol] 13 mmol/L Normal 9-17 [facility] Comment on above: Performed By: #### B MP #### [facility] [address] [place] [address] Meat Counter Worker: Evelio Vasquez MD Calcium [Mass/Vol] 6.1 mg/dL Low 8.6-10.[address] [facility] Comment on above: Performed By: #### B MP #### [facility] [employer] [address] [place] [address] Meat Counter Worker: Evelio Vasquez MD Chloride [Moles/Vol] 113 mmol/L High 98-107 [facility] Comment on above: Performed By: #### B MP #### [facility] [address] [place] [address] Meat Counter Worker: Evelio Vasquez MD CO2 [Moles/Vol] 17 mmol/L Low 20-[address] [facility] Comment on above: Performed By: #### B MP #### [facility] [address] [place] [address] Meat Counter Worker: Evelio Vasquez MD Glucose [Mass/Vol] 117 mg/dL High 70-[address] [facility] Comment on above: Performed By: #### B MP #### [facility] [address] [place] [address] Meat Counter Worker: Evelio Vasquez MD Potassium [Moles/Vol] 3.6 mmol/L Low 3.7-5.3 [facility] Comment on above: Performed By: #### B MP #### [address] [address] Meat Counter Worker: Evelio Vasquez MD Sodium [Moles/Vol] 143 mmol/L Normal 135-[address] [facility] Comment on above: Performed By: #### B MP #### [address] [address] Meat Counter Worker: Evelio Vasquez MD Basic metabolic 2000 panelon 07-29-2022 Anion gap [Moles/Vol] 14 mmol/L Normal 9-18 [facility] Comment on above: Order Comment: Speci men Type: BLOOD SPECIMENOrdering Facility: [facility] Address: [address] [place] [id number] Performed By: #### 2 432-2 ####[facility] LABCLIA [id number] [facility] [id number] [address] [place] Calcium [Mass/Vol] 6.7 mg/dL Low 8.5-10.2 [facility] Comment on above: Order Comment: Speci men Type: BLOOD SPECIMENOrdering Facility: [facility] Address: [address] [place] [phone] Performed By: #### 2 432-2 ####[facility] LABCLIA [id number] [place] [address] [place] Chloride [Moles/Vol] 113 mmol/L High 97-105 [facility] Comment on above: Order Comment: Speci men Type: BLOOD SPECIMENOrdering Facility: [facility] Address: [address] [place] [address] Performed By: #### 2 4321-2 ####[facility] [place] LABCLIA [id number] [place] [address] [place] CO2 [Moles/Vol] 20 mmol/L Low 22-30 [facility] Comment on above: Order Comment: Speci men Type: BLOOD SPECIMENOrdering Facility: [facility] Address: [address] [place] [address] Performed By: #### 2 4321-2 ####[facility] [place] LABCLIA [id number] [address] [place] Creatinine [Mass/Vol] 6.76 mg/dL High 0.73-1.22 [facility] Comment on above: Order Comment: Speci men Type: BLOOD SPECIMENOrdering Facility: [facility] Address: [address] [place] [address] Performed By: #### 2 4321-2 ####[facility] [place] LABIA [id number] [address] [place] ESTIMATED GLOMERULAR FILTRATION RATE 8 mL/min/1.73m??? Low >=60 [facility] Comment on above: Order Comment: Speci men Type: BLOOD SPECIMENOrdering Facility: [facility] Address: [address] [place] [address] Result Comment: Lamar mated Glomerular Filtration Rate (eGFR) is calculated using the 2020 CKD-EPI creatinine equation. This equation utilizes serum creatinine, sex, and age as parameters. The creatinine assay has traceable calibration to isotope dilution-mass spectrometry. Refer to KDIGO guidelines for clinical interpretation. In patients with unstable renal function, e.g. those with acute kidney injury, the eGFR may not accurately reflect actual GFR. Performed By: #### 2 4321-2 ####[facility] LABIA [id number] [place] [address] [place] Glucose [Mass/Vol] 98 mg/dL Normal 74-99 [facility] Comment on above: Order Comment: Chayito hudson Type: BLOOD SPECIMENOrdering Facility: [facility] Address: [address] [place] [address] Result Comment: The [place] [employer] (ADA) provides guidance for cutoff values for fasting glucose and random glucose. The ADA defines fasting as no caloric intake for at least 8 hours. Fasting plasma glucose results between 100 to 125 mg/dL indicate increased risk for diabetes (prediabetes).Fasting plasma glucose results greater than or equal to 126 mg/dL meet the criteria for diagnosis of diabetes. In the absence of unequivocal hyperglycemia, results should be confirmed by repeat testing. In a patient with classic symptoms of hyperglycemia or hyperglycemic crisis, random plasma glucose results greater than or equal to 200 mg/dL meet the criteria for diagnosis of diabetes.Reference: Standards of Medical Care in Diabetes 2016, [place] [employer]. Diabetes Care. 2016.39(Suppl 1). Performed By: #### 2 4321-2 ####[facility] LABIA [id number] [place] [address] [place] Potassium [Moles/Vol] 3.5 mmol/L Low 3.7-5.1 [facility] Comment on above: Order Comment: Chayito hudson Type: BLOOD SPECIMENOrdering Facility: [facility] Address: [address] [place] [address] Performed By: #### 2 4321-2 ####[facility] [place] LABIA [id number] [place] [address] [place] Sodium [Moles/Vol] 147 mmol/L High 136-144 [facility] Comment on above: Order Comment: Chayito hudson Type: BLOOD SPECIMENOrdering Facility: [facility] Address: [address] Performed By: #### 2 4321-2 ####[facility] [place] LABCLIA [id number] [place] [address] [place] Urea nitrogen [Mass/Vol] 107 mg/dL High 9-24 [facility] Comment on above: Order Comment: Speci men Type: BLOOD SPECIMENOrdering Facility: [facility] Address: [address] [place], [place] [address] Performed By: #### 2 4321-2 ####[facility] LABCLIA [id number] [place] [address] [place] CBC panel Auto (Bld)on 07-29 Erythrocyte distribution width (RBC) [Ratio] 14.8 % Normal 11.5-15.0 [facility] Comment on above: Order Comment: Speci men Type: BLOOD SPECIMENOrdering Facility: [facility] Address: [address] [place], [place] [address] Performed By: #### 5 8410-2 ####[facility] LABIA [id number] [place] [address] [place] Hematocrit (Bld) [Volume fraction] 22.3 % Low 39.0-51.0 [facility] Comment on above: Order Comment: Speci men Type: BLOOD SPECIMENOrdering Facility: [facility] Address: [address] [place], [place] [address] Performed By: #### 5 8410-2 ####[facility] LABCLIA [id number] [place] [address] [place] Hemoglobin (Bld) [Mass/Vol] 7.9 g/dL Low 13.0-17.0 [facility] Comment on above: Order Comment: Speci men Type: BLOOD SPECIMENOrdering Facility: [facility] Address: [address] [place], [place] [address] Performed By: #### 5 8410-2 ####[facility] LABCLIA [id number] [address] STATES [facility] MCH (RBC) [Entitic mass] 30.0 pg Normal 26.0-34.0 [facility] Comment on above: Order Comment: Speci men Type: BLOOD SPECIMENOrdering Facility: [facility] Address: [address] [place] [address] Performed By: #### 5 8410-2 ####[facility] LABIA [id number] [address] MCHC (RBC) [Mass/Vol] 35.4 g/dL Normal 30.5-36.0 [facility] Comment on above: Order Comment: Speci men Type: BLOOD SPECIMENOrdering Facility: [facility] Address: [address] [place] [address] Performed By: #### 5 8410-2 ####[facility] LABIA [id number] [address] MCV (RBC) [Entitic vol] 84.8 fL Normal 80.0-100.0 [facility] Comment on above: Order Comment: Speci men Type: BLOOD SPECIMENOrdering Facility: [facility] Address: [address] [place] [address] Performed By: #### 5 8410-2 ####[facility] LABIA [id number] [address] [place] Nucleated RBC (Bld) [#/Vol] 10*3/uL Normal <0.01 [facility] Comment on above: Order Comment: Speci men Type: BLOOD SPECIMENOrdering Facility: [facility] Address: [address] [place] [address] Performed By: #### 5 8410-2 ####[facility] LABIA [id number] [address] [place] Platelet mean volume (Bld) [Entitic vol] 10.2 fL Normal 9.0-12.7 [facility] Comment on above: Order Comment: Speci men Type: BLOOD SPECIMENOrdering Facility: [facility] Address: [address] [place] [address] Performed By: #### 5 8410-2 ####[facility] LABCLIA [id number] [place] [address] [place] Platelets (Bld) [#/Vol] 75 10*3/uL Low 150-400 [facility] Comment on above: Order Comment: Speci men Type: BLOOD SPECIMENOrdering Facility: [facility] Address: [address] [place], [place] [address] Result Comment: No c lot detected. Performed By: #### 5 8410-2 ####[facility] LABCLIA [id number] [place] [address] [place] RBC (Bld) [#/Vol] 2.63 10*6/uL Low 4.20-6.00 [facility] Comment on above: Order Comment: Speci men Type: BLOOD SPECIMENOrdering Facility: [facility] Address: [address] [place], [place] [address] Performed By: #### 5 8410-2 ####[facility] LABIA [id number] [place] [address] [place] WBC (Bld) [#/Vol] 5.78 10*3/uL Normal 3.70-11.00 [facility] Comment on above: Order Comment: Speci men Type: BLOOD SPECIMENOrdering Facility: [facility] Address: [address] [place], [place] [address] Performed By: #### 5 8410-2 ####[facility] LABCLIA [id number] [place] [address] [place] Erythrocyte distribution width (RBC) [Ratio] 14.6 % Normal 11.5-15.0 [facility] Comment on above: Order Comment: Speci men Type: BLOOD SPECIMENOrdering Facility: [facility] Address: [address] Performed By: #### 5 8410-2 ####[facility] LABIA [id number] [address] [place] Hematocrit (Bld) [Volume fraction] 21.8 % Low 39.0-51.0 [facility] Comment on above: Order Comment: Speci men Type: BLOOD SPECIMENOrdering Facility: [facility] Address: [address] Performed By: #### 5 8410-2 ####[facility] LABIA [id number] [place] [address] [place] Hemoglobin (Bld) [Mass/Vol] 7.6 g/dL Low 13.0-17.0 [facility] Comment on above: Order Comment: Speci men Type: BLOOD SPECIMENOrdering Facility: [facility] Address: [address] Performed By: #### 5 8410-2 ####[facility] LABIA [id number] [place] [address] [place] MCH (RBC) [Entitic mass] 29.5 pg Normal 26.0-34.0 [facility] Comment on above: Order Comment: Speci men Type: BLOOD SPECIMENOrdering Facility: [facility] Address: [address] Performed By: #### 5 8410-2 ####[facility] LABIA [id number] [place] [address] [place] MCHC (RBC) [Mass/Vol] 34.9 g/dL Normal 30.5-36.0 [facility] Comment on above: Order Comment: Speci men Type: BLOOD SPECIMENOrdering Facility: [facility] Address: [address] Performed By: #### 5 8410-2 ####[facility] LABIA [id number] [place] [address] [place] MCV (RBC) [Entitic vol] 84.5 fL Normal 80.0-100.0 [facility] Comment on above: Order Comment: Speci men Type: BLOOD SPECIMENOrdering Facility: [facility] Address: [address] [place] [address] Performed By: #### 5 8410-2 ####[facility] LABIA [id number] [place] [address] [place] Nucleated RBC (Bld) [#/Vol] 10*3/uL Normal <0.01 [facility] Comment on above: Order Comment: Speci men Type: BLOOD SPECIMENOrdering Facility: [facility] Address: [address] [place] [place] [address] Performed By: #### 5 8410-2 ####[facility] LABIA [id number] [address] [place] Platelet mean volume (Bld) [Entitic vol] 10.8 fL Normal 9.0-12.7 [facility] Comment on above: Order Comment: Speci men Type: BLOOD SPECIMENOrdering Facility: [facility] Address: [address] [place] [address] Performed By: #### 5 8410-2 ####[facility] LABIA [id number] [address] [place] Platelets (Bld) [#/Vol] 73 10*3/uL Low 150-400 [facility] Comment on above: Order Comment: Speci men Type: BLOOD SPECIMENOrdering Facility: [facility] Address: [address] [place] [address] Result Comment: No c lot detected. Performed By: #### 5 8410-2 ####[facility] [place] LABIA [id number] [place] [address] [place] RBC (Bld) [#/Vol] 2.58 10*6/uL Low 4.20-6.00 [facility] Comment on above: Order Comment: Speci men Type: BLOOD SPECIMENOrdering Facility: [facility] Address: [address] [place] [address] Performed By: #### 5 8410-2 ####[facility] [place] LABCLIA [id number] [place] [address] [place] WBC (Bld) [#/Vol] 5.01 10*3/uL Normal 3.70-11.00 [facility] Comment on above: Order Comment: Speci men Type: BLOOD SPECIMENOrdering Facility: [facility] Address: [address] [place] [address] Performed By: #### 5 8410-2 ####[facility] [place] LABCLIA [id number] [address] STATES OF [facility] Erythrocyte distribution width (RBC) [Ratio] 14.3 % Normal 11.5-15.0 [facility] Comment on above: Order Comment: Speci men Type: BLOOD SPECIMENOrdering Facility: [facility] Address: [address] [place] [address] Performed By: #### 5 8410-2 ####[facility] [place] LABCLIA [id number] [place] [address] [place] Hematocrit (Bld) [Volume fraction] 23.2 % Low 39.0-51.0 [facility] Comment on above: Order Comment: Speci men Type: BLOOD SPECIMENOrdering Facility: [facility] Address: [address] [place] [address] Performed By: #### 5 8410-2 ####[facility] [place] LABCLIA [id number] [place] [address] [place] Hemoglobin (Bld) [Mass/Vol] 8.1 g/dL Low 13.0-17.0 [facility] Comment on above: Order Comment: Speci men Type: BLOOD SPECIMENOrdering Facility: [facility] Address: [address] Performed By: #### 5 8410-2 ####[facility] [place] LABIA [id number] [address] STATES OF [facility] MCH (RBC) [Entitic mass] 29.2 pg Normal 26.0-34.0 [facility] Comment on above: Order Comment: Speci men Type: BLOOD SPECIMENOrdering Facility: [facility] Address: [address] Performed By: #### 5 8410-2 ####[facility] [place] LABIA [id number] [address] STATES [facility] MCHC (RBC) [Mass/Vol] 34.9 g/dL Normal 30.5-36.0 [facility] Comment on above: Order Comment: Speci men Type: BLOOD SPECIMENOrdering Facility: [facility] Address: [address] Performed By: #### 5 8410-2 ####[facility] [place] LABIA [id number] [address] [place] MCV (RBC) [Entitic vol] 83.8 fL Normal 80.0-100.0 [facility] Comment on above: Order Comment: Speci men Type: BLOOD SPECIMENOrdering Facility: [facility] Address: [address] Performed By: #### 5 8410-2 ####[facility] [place] [facility] [id number] [address] [place] Nucleated RBC (Bld) [#/Vol] 10*3/uL Normal <0.01 [facility] Comment on above: Order Comment: Speci men Type: BLOOD SPECIMENOrdering Facility: [facility] Address: [address] [place], [place] [address] Performed By: #### 5 8410-2 ####[facility] [place] LABCLIA [id number] [place] [address] [place] Platelet mean volume (Bld) [Entitic vol] 10.0 fL Normal 9.0-12.7 [facility] Comment on above: Order Comment: Speci men Type: BLOOD SPECIMENOrdering Facility: [facility] Address: [address] [place], [place] [address] Performed By: #### 5 8410-2 ####[facility] [place] LABIA [id number] [place] [address] [place] Platelets (Bld) [#/Vol] 80 10*3/uL Low 150-400 [facility] Comment on above: Order Comment: Speci men Type: BLOOD SPECIMENOrdering Facility: [facility] Address: [address] [place], [place] [address] Result Comment: No c lot detected. Performed By: #### 5 8410-2 ####[facility] [place] LABIA [id number] [place] [address] [place] RBC (Bld) [#/Vol] 2.77 10*6/uL Low 4.20-6.00 [facility] Comment on above: Order Comment: Speci men Type: BLOOD SPECIMENOrdering Facility: [facility] Address: [address] [place], [place] [address] Performed By: #### 5 8410-2 ####[facility] [place] LABIA [id number] [place] [address] [place] WBC (Bld) [#/Vol] 5.66 10*3/uL Normal 3.70-11.00 [facility] Comment on above: Order Comment: Speci men Type: BLOOD SPECIMENOrdering Facility: [facility] Address: [address] [place], [place] [address] Performed By: #### 5 8410-2 ####[facility] [place] [facility]BRATT[facility] [id number] BOOM [facility]TEFort[facility] [place] [id number] [place] CNCOon 07-29-2022 CNCO Letter Text Normal [facility] CNPNon 07-29-2022 CNPN Normal [facility] CONSULTon 07-29-2022 CONSULT Normal [facility] CONSULT Normal [facility] COVID-19, Rapidon 07-29-2022 SARS-CoV-2 (COVID-19) RdRp gene WAYLON+probe Ql (Resp) Not detected Not Detected [facility] Comment on above: Rapid NAAT: The specimen is NEGATIVE for SARS-CoV-2, the novel coronavirus associated with COVID-19. The ID NOW COVID-19 assay is designed to detect the virus that causes COVID-19 in patients with signs and symptoms of infection who are suspected of COVID-19. An individual without symptoms of COVID-19 and who is not shedding SARS-CoV-2 virus would expect to have a negative (not detected) result in this assay. Negative results should be treated as presumptive and, if inconsistent with clinical signs and symptoms or necessary for patient management, should be tested with an alternative molecular assay. Negative results do not preclude SARS-CoV-2 infection and should not be used as the sole basis for patient management decisions. Fact sheet for Healthcare Providers: https://www.fda.gov/media/568038/download Fact sheet for Patients: https://www.fda.gov/media/514827/download Methodology: Isothermal Nucleic Acid Amplification Specimen Description .NASOPHARYNGEAL SWAB [facility] Calcium, Ionicon 07-29-2022 Calcium [Moles/Vol] 0.92 mmol/L Low 1.13-1.33 [facility] Comment on above: Performed By: #### F KLLC, BNP, PHEP, CDP #### [facility] [address] [place] [address] Meat Counter Worker: vEelio Vasquez MD Calcium, Ionizedon Calcium.ionized (Bld) [Moles/Vol] 0.92 mmol/L Low 1.13 - 1.33 mmol/L [facility] Interpretation and review of laboratory results Abnormal [facility] Comprehensive metabolic 2000 panelon 07-29-2022 Albumin [Mass/Vol] 2.4 g/dL Low 3.9-4.9 [facility] Comment on above: Order Comment: Speci men Type: BLOOD SPECIMENOrdering Facility: [facility] Address: [address] [place] [address] Performed By: #### 3 3959-8, 11032-7 ####[facility] [place] LABCLIA [id number] [place] [address] [place] ALP [Catalytic activity/Vol] 28 U/L Low 38-113 [facility] Comment on above: Order Comment: Speci men Type: BLOOD SPECIMENOrdering Facility: [facility] Address: [address] [place] [address] Performed By: #### 3 3959-8, 91860-2 ####[facility] [place] LABCLIA [id number] [place] [address] [place] ALT [Catalytic activity/Vol] 15 U/L Normal 10-54 [facility] Comment on above: Order Comment: Speci men Type: BLOOD SPECIMENOrdering Facility: [facility] Address: [address] [place] [address] Performed By: #### 3 3959-8, 23924-6 ####[facility] [place] LABCLIA [id number] [place] [address] [place] Anion gap [Moles/Vol] 16 mmol/L Normal 9-18 [facility] Comment on above: Order Comment: Speci men Type: BLOOD SPECIMENOrdering Facility: [facility] Address: [address] [place], [place] [address] Performed By: #### 3 3959-8, 43360-7 ####[facility] [place] LABCLIA [id number] [place] [address] [place] AST [Catalytic activity/Vol] 20 U/L Normal 14-40 [facility] Comment on above: Order Comment: Speci men Type: BLOOD SPECIMENOrdering Facility: [facility] Address: [address] Performed By: #### 3 3959-8, 81990-3 ####[facility] [place] LABCLIA [id number] [place] [address] [place] Bilirubin [Mass/Vol] 0.5 mg/dL Normal 0.2-1.3 [facility] Comment on above: Order Comment: Speci men Type: BLOOD SPECIMENOrdering Facility: [facility] Address: [address] [place] [address] Performed By: #### 3 3959-8, 14056-5 ####[facility] [place] LABCLIA [id number] [place] [address] [place] Calcium [Mass/Vol] 6.6 mg/dL Low 8.5-10.2 [facility] Comment on above: Order Comment: Speci men Type: BLOOD SPECIMENOrdering Facility: [facility] Address: [address] Performed By: #### 3 3959-8, 94238-7 ####[facility] [place] LABCLIA [id number] [place] [address] [place] Chloride [Moles/Vol] 115 mmol/L High 97-105 [facility] Comment on above: Order Comment: Speci men Type: BLOOD SPECIMENOrdering Facility: [facility] Address: [address] Performed By: #### 3 3959-8, 68862-1 ####[facility] [place] LABCLIA [id number] [place] [address] [place] CO2 [Moles/Vol] 19 mmol/L Low 22-30 [facility] Comment on above: Order Comment: Speci men Type: BLOOD SPECIMENOrdering Facility: [facility] Address: [address] [place] [id number] Performed By: #### 3 3959-8, 32612-2 ####[facility] LABIA [id number] [place] [address] [place] Creatinine [Mass/Vol] 6.68 mg/dL High 0.73-1.22 [facility] Comment on above: Order Comment: Specjohnathan men Type: BLOOD SPECIMENOrdering Facility: [facility] Address: [address] [place] [address] Performed By: #### 3 3959-8, 30824-5 ####[facility] [place] LABIA [id number] [place] [address] [place] ESTIMATED GLOMERULAR FILTRATION RATE 9 mL/min/1.73m??? Low >=60 [facility] Comment on above: Order Comment: Chayito men Type: BLOOD SPECIMENOrdering Facility: [facility] Address: [address] [place] [address] Result Comment: Lamar mated Glomerular Filtration Rate (eGFR) is calculated using the 2020 CKD-EPI creatinine equation. This equation utilizes serum creatinine, sex, and age as parameters. The creatinine assay has traceable calibration to isotope dilution-mass spectrometry. Refer to KDIGO guidelines for clinical interpretation. In patients with unstable renal function, e.g. those with acute kidney injury, the eGFR may not accurately reflect actual GFR. Performed By: #### 3 3959-8, 23553-4 ####[facility] [place] LABIA [id number] [place] [address] [place] Glucose [Mass/Vol] 88 mg/dL Normal 74-99 [facility] Comment on above: Order Comment: Chayito hudson Type: BLOOD SPECIMENOrdering Facility: [facility] Address: [address] [place] [address] Result Comment: The [place] Diabetes Association (ADA) provides guidance for cutoff values for fasting glucose and random glucose. The ADA defines fasting as no caloric intake for at least 8 hours. Fasting plasma glucose results between 100 to 125 mg/dL indicate increased risk for diabetes (prediabetes).Fasting plasma glucose results greater than or equal to 126 mg/dL meet the criteria for diagnosis of diabetes. In the absence of unequivocal hyperglycemia, results should be confirmed by repeat testing. In a patient with classic symptoms of hyperglycemia or hyperglycemic crisis, random plasma glucose results greater than or equal to 200 mg/dL meet the criteria for diagnosis of diabetes.Reference: Standards of Medical Care in Diabetes 2016, [place] [employer]. Diabetes Care. 2016.39(Suppl 1). Performed By: #### 3 3959-8, 88562-2 ####[facility] LABCLIA [id number] [place] [address] [place] Potassium [Moles/Vol] 3.5 mmol/L Low 3.7-5.1 [facility] Comment on above: Order Comment: Speci men Type: BLOOD SPECIMENOrdering Facility: [facility] Address: [address] [place] [address] Performed By: #### 3 3959-8, 44701-2 ####[facility] LABCLIA [id number] [place] [address] [place] Protein [Mass/Vol] 3.4 g/dL Low 6.3-8.0 [facility] Comment on above: Order Comment: Speci men Type: BLOOD SPECIMENOrdering Facility: [facility] Address: [address] [place] [address] Performed By: #### 3 3959-8, 07368-8 ####[facility] [place] LABCLIA [id number] [place] [address] [place] Sodium [Moles/Vol] 150 mmol/L High 136-144 [facility] Comment on above: Order Comment: Speci men Type: BLOOD SPECIMENOrdering Facility: [facility] Address: [address] [place] [address] Performed By: #### 3 3959-8, 77379-4 ####[facility] [place] LABCLIA [id number] [place] [address] [place] Urea nitrogen [Mass/Vol] 104 mg/dL High 9-24 [facility] Comment on above: Order Comment: Speci men Type: BLOOD SPECIMENOrdering Facility: [facility] Address: [address] [place] [id number] Performed By: #### 3 3959-8, 00659-4 ####[facility] [place] LABCLIA [id number] [address] [place] [address] [place] Cult,Urineon 07-29-2022 Cult,Urine Specimen Description .URINE,STRAIGHT CATHETER Culture NO GROWTH Report Status FINAL 07/29/[address] [facility] Comment on above: Performed By: #### P T, CBC #### [facility] [address] [place] [address] Meat Counter Worker: Evelio Vasquez MD ECG COMPLETEon 07-29-2022 ECG COMPLETE Normal [facility] Gl Hemostasis TEG w/Lysison 07-29-2022 Fibrinogen, Func TEG 12.8 mm Low 15.0-32.0 [facility] Comment on above: Performed By: #### F KLLC, BNP, PHEP, CDP #### [facility] [address] [place] [address] Meat Counter Worker: Evelio Vasquez MD LY30 (Lysis) TEG 0.2 % Normal 0.0-2.6 [facility] Comment on above: Performed By: #### F KLLC, BNP, PHEP, CDP #### [facility] [address] [place] [address] Meat Counter Worker: Evelio Vasquez MD MA Rapid TEG 40.7 mm Low 52.0-70.[address] [facility] Comment on above: Performed By: #### F KLLC, BNP, PHEP, CDP #### [facility] [address] [place] [address] Meat Counter Worker: Evelio Vasquez MD R(Reaction Time) TEG 4.6 min Normal 4.6-9.1 [facility] Comment on above: Performed By: #### F KLLC, BNP, PHEP, CDP #### [address] [address] Meat Counter Worker: Evelio Vasquez MD Global Hemostasis(TEG 6S)on 07-29-2022 Angle TEG 69.6 deg Normal 63.0-78.[address] [facility] Comment on above: Performed By: #### P T, CBC #### [address] [address] Meat Counter Worker: Evelio Vasquez MD Fibrinogen, Func TEG 14.3 mm Low 15.0-32.0 [facility] Comment on above: Performed By: #### P T, CBC #### [address] [address] Meat Counter Worker: Evelio Vasquez MD K (Kinetics) TEG 1.8 min Normal 0.8-2.1 [facility] Comment on above: Performed By: #### P T, CBC #### [address] [address] Meat Counter Worker: Evelio Vasquez MD MA (Max Clot) TEG 45.8 mm Low 52.0-69.0 [facility] Comment on above: Performed By: #### P T, CBC #### [address] [address] Meat Counter Worker: Evelio Vasquez MD MA Rapid TEG 42.5 mm Low 52.0-70.[address] [facility] Comment on above: Performed By: #### P T, CBC #### [address] [address] Meat Counter Worker: Evelio Vasquez MD R TEG w/Hep 4.3 min Normal 4.3-8.[address] [facility] Comment on above: Performed By: #### P T, CBC #### [facility] [address] [place] [address] Meat Counter Worker: Evelio Vasquez MD R(Reaction Time) TEG 4.7 min Normal 4.6-9.1 [facility] Comment on above: Performed By: #### P T, CBC #### [facility] [address] [place] [address] Meat Counter Worker: Evelio Vasquez MD HIGH SENSITIVITY TROPONIN To n 07-29-2022 HIGH SENSITIVITY MIGUEL A 74 ng/L High <12 [facility] Comment on above: Order Comment: Speci men Type: BLOOD SPECIMENOrdering Facility: [facility] Address: [address] [place] [address] Result Comment: When assessing risk for acute coronary syndromes: In patients undergoing blood draw greater than or equal to 2 hours from symptom onset, with history of very low to moderate risk and non-ischemic ECG, an initial hs-Troponin T less than 12 ng/L AND a 1 hour delta hs-Troponin T less than 3 ng/L should be considered very low risk for 30 day MACE. Performed By: #### 3 3762-6, HSTNT, 14236-6, 2777-1 ####[facility] LABCLIA [id number] [place] [address] [place] HISTORY PHYSICALon HISTORY PHYSICAL Normal [facility] Hemoglobin and Hematocriton 07-29-2022 Hematocrit (Bld) [Volume fraction] 22.2 % Low 40.7 - 50.3 % [employer] [facility] Hemoglobin (Bld) [Mass/Vol] 7.9 g/dL Low 13.0 - 17.0 g/dL NICO Interpretation and review of laboratory results Abnormal [facility] [employer] Spaces 2 Host Hgb/Hcton 07-29-2022 Hematocrit (Bld) [Volume fraction] 22.2 % Low 40.7-50.[address] [facility] Comment on above: Performed By: #### F KLLC, BNP, PHEP, CDP #### [address] [address] Meat Counter Worker: Evelio Vasquez MD Hemoglobin (Bld) [Mass/Vol] 7.9 g/dL Low 13.0-17.[address] [facility] Comment on above: Performed By: #### F KLLC, BNP, PHEP, CDP #### [address] [address] Meat Counter Worker: Evelio Vasquez MD Immunofixation,Bloodon 07-29 IFX - Interpret. IMMUNOFIXATION IS NEGATIVE FOR MONOCLONAL IMMUNOGLOBULIN. Normal [facility] Comment on above: Performed By: #### P T, CBC #### [address] [address] Meat Counter Worker: Evelio Vasquez MD Pathologist Review: ELECTRONICALLY ENEIDA NATARAJAN M.D. Normal [facility] Comment on above: Performed By: #### P T, CBC #### [address] [address] Meat Counter Worker: Evelio Vasquez MD MRSA, DNA, Nasalon 3 MRSA, DNA, Nasal Negative Normal NEG [facility] Comment on above: Result Comment: NEGA TIVE: MRSA DNA not detected by nucleic acid amplification. Results should be used as an adjunct to nosocomial control efforts to identify patients needing enhanced precautions. The test is not intended to identify patients with staphylococcal infections. Results should not be used to guide or monitor treatment for MRSA infections. Performed By: #### T PLT #### [address] [address] Meat Counter Worker: Evelio Vasquez MD Magnesium SerPl-mCncon 07-29 Magnesium [Mass/Vol] 1.6 mg/dL Low 1.7-2.3 [facility] Comment on above: Order Comment: Speci men Type: BLOOD SPECIMENOrdering Facility: [facility] Address: [address] [place] [address] [place] [address] Performed By: #### 3 3762-6, HSTNT, 59981-5, 2776-1 ####[facility] LABCLIA [id number] [address] NT-proBNP Sylvie 07-29 Natriuretic peptide.B prohormone N-Terminal [Mass/Vol] 708 pg/mL High <125 [facility] Comment on above: Order Comment: Speci men Type: BLOOD SPECIMENOrdering Facility: [facility] Address: [address] Performed By: #### 3 3762-6, HSTNT, 64036-5, 2776- ####[facility] LABCLIA [id number] [address] PT panel Coag (PPP)on 2022 INR Coag (PPP) [Relative time] 1.1 {INR} Normal 0.9-1.3 [facility] Comment on above: Order Comment: Speci tristan Type: BLOOD SPECIMENOrdering Facility: [facility] Address: [address] [place] [address] Result Comment: Lisa min K Antagonist (VKA) Therapeutic Range: INR 2 to 3 (Target INR of 2.5)Note: For patients treated with VKA drugs, such as warfarin, the [place] [employer] 2012 Guideline recommends a therapeutic INR range of 2 to 3 (target INR of 2.5). This recommendation includes high-risk patients with antiphospholipid syndrome with previous arterial or venous thromboembolism, current-generation mechanical or bioprosthetic aortic heart valve replacement.Note: Patients with mechanical aortic valve replacement and additional risk factors for thromboembolic events (atrial fibrillation, previous thromboembolism, LV dysfunction, hypercoagulable conditions) or an older generation mechanical AVR (i.e., ball in-Cage) or any mechanical MVR should have a INR therapeutic range of 2.5 to 3.5 (target INR of 3).Jimy GH, et al. Chest 2012, 141:7S-47SMarija RA, et al. [facility] 2017, 70: 252-289 Performed By: #### 3 4528-0, 62675-5 ####[facility] LABIA [id number] [place] [address] [place] PT Coag (PPP) [Time] 11.8 s Normal 9.7-13.0 [facility] Comment on above: Order Comment: Speci men Type: BLOOD SPECIMENOrdering Facility: [facility] Address: [address] [place] [address] Performed By: #### 3 4528-0, 07132-0 ####[facility] LABIA [id number] [place] [address] [place] Phosphate SerPl-mCncon 07-29 Phosphate [Mass/Vol] 5.9 mg/dL High 2.7-4.8 [facility] Comment on above: Order Comment: Speci men Type: BLOOD SPECIMENOrdering Facility: [facility] Address: [address] [place] [address] Performed By: #### 3 3762-6, HSTNT, 88320-4, 2777-1 ####[facility] LABIA [id number] [place] [address] [place] Platelets,Transfuseon 2022 Platelets,Transfuse Unit Number [id number] Blood Component Type PthRePlt PAS Unit Division 00 Status of Unit TRANSFUSED Transfusion Status OK TO TRANSFUSE Normal [facility] Comment on above: Performed By: #### F KLLC, BNP, PHEP, CDP #### [facility] weeSPIN [facility] [place] [address] Meat Counter Worker: Evelio Vasquez MD Procalcitonin SerPl-mCncon 0 07-29-2022 Procalcitonin [Mass/Vol] 0.37 ng/mL High <0.09 [facility] Comment on above: Order Comment: Speci men Type: BLOOD SPECIMENOrdering Facility: [facility] Address: [address] [place], [place] [address] Result Comment: For a guided interpretation of test results, please visit the Change in Procalcitonin Calculator, [email or web address]. Performed By: #### 3 3959-8, 74117-7 ####[facility] LABCLIA [id number] [facility] [id number] [facility] [id number] 07-29-2022 SARS-CoV-2 (COVID-19) RNA WAYLON+probe Ql (Unsp spec) Not detected Normal [facility] Comment on above: Result Comment: Rapid NAAT: The specimen is NEGATIVE for SARS-CoV-2, the novel coronavirus associated with COVID-19. The ID NOW COVID-19 assay is designed to detect the virus that causes COVID-19 in patients with signs and symptoms of infection who are suspected of COVID-19. An individual without symptoms of COVID-19 and who is not shedding SARS-CoV-2 virus would expect to have a negative (not detected) result in this assay. Negative results should be treated as presumptive and, if inconsistent with clinical signs and symptoms or necessary for patient management, should be tested with an alternative molecular assay. Negative results do not preclude SARS-CoV-2 infection and should not be used as the sole basis for patient management decisions. Fact sheet for Healthcare Providers: https://www.fda.gov/media/685769/download Fact sheet for Patients: https://www.fda.gov/media/341192/download Methodology: Isothermal Nucleic Acid Amplification Performed By: #### T PLT #### [facility] weeSPIN [address] [place] [address] Meat Counter Worker: Evelio Vasquez MD STAPH AUREUS PCRon S. aureus and MRSA panel WAYLON+probe (Nose) Normal Negative [facility] Comment on above: Order Comment: Speci men Type: SWAB OF INTERNAL NOSEOrdering Facility: [facility] Address: [address] [facility] [place] [address] Result Comment: Nega tive for Staphylococcus aureus by PCR.Negative for MRSA by PCR Performed By: #### S APCR ####[facility] LABCLIA [id number] [place] [address] [place] Upper GI endoscopyon 023 Upper GI endoscopy Normal [facility] Urinalysis complete panel (U )on 07-29-2022 Bilirubin Ql (U) Negative Normal Negative [facility] Comment on above: Order Comment: Speci men Type: URINE SPECIMENOrdering Facility: [facility] Address: [address] [place] [address] Performed By: #### 2 4356-8 ####[facility] LABCLIA [id number] [place] [address] [place] Clarity (Unsp spec) Clear Normal Clear [facility] Comment on above: Order Comment: Speci men Type: URINE SPECIMENOrdering Facility: [facility] Address: [address] [place] [address] Performed By: #### 2 4356-8 ####[facility] LABIA [id number] [place] [address] [place] Color (U) Colorless Normal Yellow [facility] Comment on above: Order Comment: Speci men Type: URINE SPECIMENOrdering Facility: [facility] Address: [address] [place] [address] Performed By: #### 2 4356-8 ####[facility] LABCLIA [id number] [place] [address] [place] Epithelial cells LM.HPF (Urine sed) [#/Area] Few Normal [facility] Comment on above: Order Comment: Speci men Type: URINE SPECIMENOrdering Facility: [facility] Address: [address] [place] [address] Performed By: #### 2 4356-8 ####[facility] LABCLIA [id number] [place] [address] [place] Glucose Test strip (U) [Mass/Vol] Negative Normal Trace, Negative [facility] Comment on above: Order Comment: Speci men Type: URINE SPECIMENOrdering Facility: [facility] Address: [address] Performed By: #### 2 4356-8 ####[facility] LABCLIA [id number] [place] [address] [place] Hemoglobin Ql (U) Trace Normal Negative, Trace [facility] Comment on above: Order Comment: Speci men Type: URINE SPECIMENOrdering Facility: [facility] Address: [address] Performed By: #### 2 4356-8 ####[facility] LABCLIA [id number] [place] [address] [place] Ketones Ql (U) Negative Normal Trace, Negative [facility] Comment on above: Order Comment: Speci men Type: URINE SPECIMENOrdering Facility: [facility] Address: [address] [place], [place] [address] Performed By: #### 2 4356-8 ####[facility] LABCLIA [id number] [place] [address] [place] Leukocyte esterase Test strip Ql (U) 250 Byron/uL Abnormal Negative, 25 Byron/uL [facility] Comment on above: Order Comment: Speci men Type: URINE SPECIMENOrdering Facility: [facility] Address: [address] Performed By: #### 2 4356-8 ####[facility] LABCLIA [id number] [place] [address] [place] Nitrite Ql (U) Negative Normal Negative [facility] Comment on above: Order Comment: Speci men Type: URINE SPECIMENOrdering Facility: [facility] Address: [address] [place], [place] [address] Performed By: #### 2 4356-8 ####[facility] LABCLIA [id number] [place] [address] [place] pH (U) 6.0 [pH] Normal 5.0-8.0 [facility] Comment on above: Order Comment: Speci men Type: URINE SPECIMENOrdering Facility: [facility] Address: [address] [place] [address] Performed By: #### 2 4356-8 ####[facility] LABIA [id number] [place] [address] [place] Protein (U) [Mass/Vol] Negative Normal Trace, Negative [facility] Comment on above: Order Comment: Speci men Type: URINE SPECIMENOrdering Facility: [facility] Address: [address] [place] [address] Performed By: #### 2 4356-8 ####[facility] DAYTONIA [id number] [place] [address] [place] RBC LM.HPF (Urine sed) [#/Area] 0-3 /HPF Normal 0-3 /HPF [facility] Comment on above: Order Comment: Speci men Type: URINE SPECIMENOrdering Facility: [facility] Address: [address] [place], [place] [address] Performed By: #### 2 4356-8 ####[facility] LABIA [id number] [place] [address] [place] Specific gravity (U) [Rel density] 1.013 Normal 1.005-1.030 [facility] Comment on above: Order Comment: Speci men Type: URINE SPECIMENOrdering Facility: [facility] Address: [address] [place], [place] [address] Performed By: #### 2 4356-8 ####[facility] LABIA [id number] [place] [address] [place] Urobilinogen Ql (U) Negative Normal Negative [facility] Comment on above: Order Comment: Speci men Type: URINE SPECIMENOrdering Facility: [facility] Address: [address] [place] [place] [address] Performed By: #### 2 4356-8 ####[facility] LABCLIA [id number] [place] [address] [place] WBC LM.HPF (Urine sed) [#/Area] 6-10 /HPF Abnormal 0-5 /HPF [facility] Comment on above: Order Comment: Speci men Type: URINE SPECIMENOrdering Facility: [facility] Address: [address] [place] [address] Performed By: #### 2 4356-8 ####[facility] LABCLIA [id number] [place] [address] [place] XR CHEST 1V FRONTAL PORTon 0 07-29-2022 XR CHEST 1V FRONTAL PORT Normal [facility] aPTT PPPon 07-29-2022 aPTT Coag (PPP) [Time] 26.5 s Normal 23.0-32.4 [facility] Comment on above: Order Comment: Speci men Type: BLOOD SPECIMENOrdering Facility: [facility] Address: [address] [place] [address] Performed By: #### 3 4528-0, 00440-3 ####[facility] LABIA [id number] [place] [address] [place] ABO/Rh Retypeon 07-28-2022 ABO/RH Recheck Result Positive Normal [facility] Comment on above: Result Comment: PERF ORMED BY: [facility] [address] [place] [address] PATHOLOGIST SCRUBBING MACHINE OPERATOR RADHA PETERSON M.D. APTTon 07-28-2022 aPTT Coag (Bld) [Time] 27.8 s Normal 20.5-30.[address] [facility] Comment on above: Result Comment: IV Heparin Therapy Range: 48.6-77.8 Performed By: #### P T, CBC #### [address] [id number] Meat Counter Worker: Evelio Vasquez MD aPTT Coag (Bld) [Time] 27.8 s [facility] Comment on above: IV Heparin Therapy Range: 48.6-77.8 aPTT Coag (Bld) [Time] 26.8 s Normal 20.5-30.[address] [facility] Comment on above: Result Comment: IV Heparin Therapy Range: 48.6-77.8 Performed By: #### T PLT #### [facility] [address] [place], [place] [id number] Meat Counter Worker: Evelio Vasquez MD aPTT Coag (Bld) [Time] 26.8 s [facility] Comment on above: IV Heparin Therapy Range: 48.6-77.8 [facility] Alanine aminotransferase [En zymatic activity/volume] in Serum or PlasmaOrdered By: Saima Sanders on 07-28-2022 ALT [Catalytic activity/Vol] 10 U/L 7-52 [facility] Albumin [Mass/volume] in Ser um or Plasma by Bromocresol green (BCG) dye binding methoOrdered By: Saima Sanders on 07-28-2022 Albumin BCG dye [Mass/Vol] 2.9 g/dL 3.5-5.7 [facility] Alkaline phosphatase [Enzyma tic activity/volume] in Serum or PlasmaOrdered By: Saima Sanders on 07-28-2022 ALP [Catalytic activity/Vol] 30 U/L 34-104 [facility] Arterial Blood Gas, POCon HCO3 (Bld) [Moles/Vol] 14.0 mmol/L Low 21.0 - 28.0 mmol/L [facility] Interpretation and review of laboratory results Abnormal [facility] Negative Base Excess, Art 11 High 0.0 - 2.0 [facility] Oxygen saturation in Blood 98 % 94.0 - 98.0 % [facility] POC pCO2 25.0 Low [facility] POC pH 7.354 7.350 - 7.450 [facility] POC PO2 101.2 [facility] Aspartate aminotransferase [ Enzymatic activity/volume] in Serum or PlasmaOrdered By: Saima Sanders on 07-28-2022 AST [Catalytic activity/Vol] 13 U/L 1339 [facility] Basic Metab w/rfx MGon 07-28 Urea nitrogen [Mass/Vol] 114 mg/dL Critically high 8-[address] [facility] Comment on above: Performed By: #### T PLT #### [facility] weeSPIN [address] [place] [address] Meat Counter Worker: Evelio Vasquez MD Creatinine [Mass/Vol] 6.84 mg/dL Critically high 0.70-1.[address] [facility] Comment on above: Performed By: #### T PLT #### [address] [address] Meat Counter Worker: Evelio Vasquez MD GFR/1.73 sq M.predicted among non-blacks MDRD (S/P/Bld) [Vol rate/Area] 8 mL/min/{1.73_m2} Low >[address] [facility] Comment on above: Result Comment: These results are not intended for use in patients <18 years of age. eGFR results are calculated without a race factor using the 2020 CKD-EPI equation. Careful clinical correlation is recommended, particularly when comparing to results calculated using previous equations. The CKD-EPI equation is less accurate in patients with extremes of muscle mass, extra-renal metabolism of creatine, excessive creatine ingestion, or following therapy that affects renal tubular secretion. Performed By: #### T PLT #### [facility] Center[facility] [place], [place] [phone] Meat Counter Worker: Evelio Vasquez MD Potassium [Moles/Vol] 3.4 mmol/L Low 3.7-5.3 [facility] Comment on above: Performed By: #### T PLT #### [facility] Center[facility] [address] [place] [address] Meat Counter Worker: Evelio Vasquez MD Anion gap [Moles/Vol] 15 mmol/L Normal 9-17 [facility] Comment on above: Performed By: #### T PLT #### [address] [address] Meat Counter Worker: Evelio Vasquez MD Calcium [Mass/Vol] 6.0 mg/dL Low 8.6-10.[address] [facility] Comment on above: Performed By: #### T PLT #### [address] [address] Meat Counter Worker: Evelio Vasquez MD Chloride [Moles/Vol] 117 mmol/L High 98-107 [facility] Comment on above: Performed By: #### T PLT #### [address] [address] Meat Counter Worker: Evelio Vasquez MD CO2 [Moles/Vol] 13 mmol/L Low 20-[address] [facility] Comment on above: Performed By: #### T PLT #### [address] [address] Meat Counter Worker: Evelio Vasquez MD Glucose [Mass/Vol] 127 mg/dL High 70-[address] [facility] Comment on above: Performed By: #### T PLT #### [address] [address] Meat Counter Worker: Evelio Vasquez MD Sodium [Moles/Vol] 145 mmol/L High 135-[address] [facility] Comment on above: Performed By: #### T PLT #### [address] [address] Meat Counter Worker: Evelio Vasquez MD Basic Metabolic Panelon - Anion gap [Moles/Vol] 13 mmol/L 9 - 17 mmol/L [facility] Calcium [Mass/Vol] 6.1 mg/dL Low 8.6 - 10. 4 mg/dL [facility] Chloride [Moles/Vol] 113 mmol/L High 98 - 10 7 mmol/L [facility] CO2 [Moles/Vol] 17 mmol/L Low 20 - 31 mmol/L [facility] Creatinine [Mass/Vol] 6.81 mg/dL Critically high 0.7 0 - 1.20 mg/dL [facility] Comment on above: Previous Alert Value Reported GFR/1.73 sq M.predicted MDRD (S/P/Bld) [Vol rate/Area] 8 mL/min/{1.73_m2} Low - PINF [facility] Comment on above: These results are not intended for use in patients <18 years of age. eGFR results are calculated without a race factor using the 2020 CKD-EPI equation. Careful clinical correlation is recommended, particularly when comparing to results calculated using previous equations. The CKD-EPI equation is less accurate in patients with extremes of muscle mass, extra-renal metabolism of creatine, excessive creatine ingestion, or following therapy that affects renal tubular secretion. Glucose [Mass/Vol] 117 mg/dL High 70 - 99 mg/dL [facility] Interpretation and review of laboratory results Abnormal [facility] Potassium [Moles/Vol] 3.6 mmol/L Low 3.7 - 5.3 mmol/L [facility] Sodium [Moles/Vol] 143 mmol/L 135 - 144 mmol/L [facility] Urea nitrogen [Mass/Vol] 119 mg/dL Critically high 8 - 23 mg/dL [facility] Comment on above: Previous Alert Value Reported [facility] Anion gap [Moles/Vol] 14 mmol/L 9 - 17 mmol/L [facility] Calcium [Mass/Vol] 5.7 mg/dL Critically low 8.6 - 1 0.4 mg/dL [facility] Chloride [Moles/Vol] 119 mmol/L High 98 - 10 7 mmol/L [facility] CO2 [Moles/Vol] 15 mmol/L Low 20 - 31 mmol/L [facility] Creatinine [Mass/Vol] 6.88 mg/dL Critically high 0.7 0 - 1.20 mg/dL [facility]ITAL[facility] GFR/1.73 sq M.predicted MDRD (S/P/Bld) [Vol rate/Area] 8 mL/min/{1.73_m2} Low - PINF [facility] Per[facility] TechnologiesGEORGET[facility] Comment on above: These results are not intended for use in patients <18 years of age. eGFR results are calculated without a race factor using the 202 CKD-EPI equation. Careful clinical correlation is recommended, particularly when comparing to results calculated using previous equations. The CKD-EPI equation is less accurate in patients with extremes of muscle mass, extra-renal metabolism of creatine, excessive creatine ingestion, or following therapy that affects renal tubular secretion. Glucose [Mass/Vol] 144 mg/dL High 70 - 99 mg/dL [facility]ITALPrometheus [employer] ([employer]) [employer] Interpretation and review of laboratory results Abnormal [facility] [employer] Potassium [Moles/Vol] 3.6 mmol/L Low 3.7 - 5.3 mmol/L [facility]ITALMacton Corporation Sodium [Moles/Vol] 148 mmol/L High 135 - 144 mmol/L [facility]ITALM[facility] Corporation Urea nitrogen [Mass/Vol] 115 mg/dL Critically high 8 - 23 mg/dL [facility]ITALPrometheus [employer] ([employer]) [employer] Host [facility]ITALPrometheus [facility] Technologies ([employer]) [employer] Basic Metabolic Panel w/ Ref keyur to MGon 07-28-2022 Anion gap [Moles/Vol] 15 mmol/L 9 - 17 mmol/L [facility]ITALProm[facility] ([employer] Host Calcium [Mass/Vol] 6.0 mg/dL Low 8.6 - 10. 4 mg/dL [facility]ITALPrometheus Civ[facility] ([employer]) [employer] Host Chloride [Moles/Vol] 117 mmol/L High 98 - 10 7 mmol/L [facility]ITALN[facility]dra [facility] Spaces 2 Host CO2 [Moles/Vol] 13 mmol/L Low 20 - 31 mmol/L [facility]ITALPrometheus Civ[facility] Technologies ([employer]) [employer] 2 Host Creatinine [Mass/Vol] 6.84 mg/dL Critically high 0.7 0 - 1.20 mg/dL [facility]ITALMacton Corporation GFR/1.73 sq M.predicted MDRD (S/P/Bld) [Vol rate/Area] 8 mL/min/{1.73_m2} Low - PINF [facility]ITALPrometheus Civic Technologies ([employer])[facility] Comment on above: These results are not intended for use in patients <18 years of age. eGFR results are calculated without a race factor using the 2020 CKD-EPI equation. Careful clinical correlation is recommended, particularly when comparing to results calculated using previous equations. The CKD-EPI equation is less accurate in patients with extremes of muscle mass, extra-renal metabolism of creatine, excessive creatine ingestion, or following therapy that affects renal tubular secretion. Glucose [Mass/Vol] 127 mg/dL High 70 - 99 mg/dL [facility] Interpretation and review of laboratory results Abnormal [facility] Potassium [Moles/Vol] 3.4 mmol/L Low 3.7 - 5.3 mmol/L [facility] Sodium [Moles/Vol] 145 mmol/L High 135 - 144 mmol/L [facility] Urea nitrogen [Mass/Vol] 114 mg/dL Critically high 8 - 23 mg/dL [facility] Basic Metabolic Profon 07-28 Urea nitrogen [Mass/Vol] 115 mg/dL Critically high 8-[address] [facility] Comment on above: Performed By: #### F KLLC, BNP, PHEP, CDP #### [facility] [address] [place] [address] [phone] Meat Counter Worker: Evelio Vasquez MD Calcium [Mass/Vol] 5.7 mg/dL Critically low 8.6-10.4 [facility] Comment on above: Performed By: #### F KLLC, BNP, PHEP, CDP #### [facility] [address] [place] [address] [phone] Meat Counter Worker: Evelio Vasquez MD Creatinine [Mass/Vol] 6.88 mg/dL Critically high 0.70-1.[address] [facility] Comment on above: Performed By: #### F KLLC, BNP, PHEP, CDP #### [facility] [address] [place] [address] [phone] Meat Counter Worker: Evelio Vasquez MD GFR/1.73 sq M.predicted among non-blacks MDRD (S/P/Bld) [Vol rate/Area] 8 mL/min/{1.73_m2} Low >[address] [facility] Comment on above: Result Comment: These results are not intended for use in patients <18 years of age. eGFR results are calculated without a race factor using the 2020 CKD-EPI equation. Careful clinical correlation is recommended, particularly when comparing to results calculated using previous equations. The CKD-EPI equation is less accurate in patients with extremes of muscle mass, extra-renal metabolism of creatine, excessive creatine ingestion, or following therapy that affects renal tubular secretion. Performed By: #### F KLLC, BNP, PHEP, CDP #### [facility] [address] [place] [address] Meat Counter Worker: Evelio Vasquez MD Anion gap [Moles/Vol] 14 mmol/L Normal 9-17 [facility] Comment on above: Performed By: #### F KLLC, BNP, PHEP, CDP #### [facility] [address] [place] [id number] Meat Counter Worker: Evelio Vasquez MD Chloride [Moles/Vol] 119 mmol/L High 98-107 [facility] Comment on above: Performed By: #### F KLLC, BNP, PHEP, CDP #### [facility] [address] [place] [id number] Meat Counter Worker: Evelio Vasquez MD CO2 [Moles/Vol] 15 mmol/L Low 20-[address] [facility] Comment on above: Performed By: #### F KLLC, BNP, PHEP, CDP #### [facility] [address] [place] [phone] Meat Counter Worker: Evelio Vasquez MD Glucose [Mass/Vol] 144 mg/dL High 70-[address] [facility] Comment on above: Performed By: #### F KLLC, BNP, PHEP, CDP #### [facility] [address] [place] [address] Meat Counter Worker: Evelio Vasquez MD Potassium [Moles/Vol] 3.6 mmol/L Low 3.7-5.3 [facility] Comment on above: Performed By: #### F KLLC, BNP, PHEP, CDP #### [facility] [address] [place] [id number] Meat Counter Worker: Evelio Vasquez MD Sodium [Moles/Vol] 148 mmol/L High 135-[address] [facility] Comment on above: Performed By: #### F KLLC, BNP, PHEP, CDP #### [facility] [address] [place] [address] Meat Counter Worker: Evelio Vasquez MD Basophils Auto (Bld) [#/Vol] Ordered By: Saima Sanders on 07-28-2022 Basophils (Bld) [#/Vol] 0.0 10*3/uL 0.0-0.2 [facility] Basophils/100 WBC Auto (Bld) Ordered By: Saima Sanders on 07-28-2022 Basophils/100 WBC (Bld) 0.6 % . [facility] Bilirubin.total [Mass/volume ] in Serum or PlasmaOrdered By: Saima Sanders on 07-28-2022 Bilirubin [Mass/Vol] 0.3 mg/dL 0.3-1.0 [facility] Brain Natri. Peptideon 07-28 Natriuretic peptide B (Bld) [Mass/Vol] 412 pg/mL High <[address] [facility] Comment on above: Result Comment: An age-independent cutoff point of 300 pg/ml has a 98% negative predictive value excluding acute heart failure. Performed By: #### F KLLC, BNP, PHEP, CDP #### [facility] [address] [place] [address] [phone] Meat Counter Worker: Evelio Vasquez MD Brain Natriuretic Peptideon 07-28-2022 Interpretation and review of laboratory results Abnormal [facility] Energy Natriuretic peptide B (Bld) [Mass/Vol] 412 pg/mL High NINF - 300 pg[facility] Comment on above: An age-independent cutoff point of 300 pg/ml has a 98% negative predictive value excluding acute heart failure. NICO C3on 07-28-2022 C3 39 mg/dL Low 90-[address] [facility] Comment on above: Performed By: #### P T, CBC #### [facility] [address] [place] [address] Meat Counter Worker: Evelio Vasquez MD C3 Complementon 07-28-2022 Complement C3 39 mg/dL Low 90 - 180 mg/dL [facility] C4on 07-28-2022 C4 7 mg/dL Low 10-[address] [facility] Comment on above: Performed By: #### P T, CBC #### [address] [id number] Meat Counter Worker: Evelio Vasquez MD C4 Complementon 07-28-2022 Complement C4 7 mg/dL Low 10 - 40 mg/dL [facility] CBCon 07-28-2022 Erythrocyte distribution width (RBC) [Ratio] 14.3 % Normal 11.8-14.[address] [facility] Comment on above: Performed By: #### P T, CBC #### [address] [id number] Meat Counter Worker: Evelio Vasquez MD Hematocrit (Bld) [Volume fraction] 18.0 % Low 40.7-50.[address] [facility] Comment on above: Performed By: #### P T, CBC #### [address] [address] Meat Counter Worker: Evelio Vasquez MD Hemoglobin (Bld) [Mass/Vol] 6.5 g/dL Critically low 13.0-17.[address] [facility] Comment on above: Performed By: #### P T, CBC #### [facility] [address] [place] [phone] Meat Counter Worker: Evelio Vasquez MD MCH (RBC) [Entitic mass] 30.2 pg Normal 25.2-33.[address] [facility] Comment on above: Performed By: #### P T, CBC #### [facility] [address] [place] [phone] Meat Counter Worker: Evelio Vasquez MD MCHC (RBC) [Mass/Vol] 36.1 g/dL High 28.4-34.8 [facility] Comment on above: Performed By: #### P T, CBC #### [place] [address] Meat Counter Worker: Evelio Vasquez MD MCV (RBC) [Entitic vol] 83.7 fL Normal 82.6-102.[address] [facility] Comment on above: Performed By: #### P T, CBC #### [place] [address] Meat Counter Worker: Evelio Vasquez MD NRBC Automated 0.0 per 100 WBC Normal 0.[address] [facility] Comment on above: Performed By: #### P T, CBC #### [place] [address] Meat Counter Worker: Evelio Vasquez MD Platelet mean volume (Bld) [Entitic vol] 9.9 fL Normal 8.1-13.[address] [facility] Comment on above: Performed By: #### P T, CBC #### [place] [address] Meat Counter Worker: Evelio Vasquez MD Platelets (Bld) [#/Vol] 62 10*3/uL Low 138-[address] [facility] Comment on above: Performed By: #### P T, CBC #### [place] [address] Meat Counter Worker: Evelio Vasquez MD RBC (Bld) [#/Vol] 2.15 10*6/uL Low 4.21-5.[address] [facility] Comment on above: Performed By: #### P T, CBC #### [place] [address] Meat Counter Worker: Evelio Vasquez MD WBC (Bld) [#/Vol] 5.6 10*3/uL Normal 3.5-11.[address] [facility] Comment on above: Performed By: #### P T, CBC #### [facility] [address] [place] [address] Meat Counter Worker: Evelio Vasquez MD Hematocrit (Bld) [Volume fraction] 18.0 % Low 40.7 - 50.3 % [facility] Hemoglobin (Bld) [Mass/Vol] 6.5 g/dL Critically low 13.0 - 17.0 g/dL [facility] Interpretation and review of laboratory results Abnormal [facility] MCH (RBC) [Entitic mass] 30.2 pg 25.2 - 33.5 pg [facility] MCHC (RBC) [Mass/Vol] 36.1 g/dL High 28.4 - 34.8 g/dL [facility] MCV (RBC) [Entitic vol] 83.7 fL 82.6 - 102.9 fL [facility] NRBC Automated 0.0 0.0 per 100 WBC [facility] Platelet distribution width (Bld) [Ratio] 14.3 % 11.8 - 14.4 % [facility] Platelet mean volume (Bld) [Entitic vol] 9.9 fL 8.1 - 13.5 fL [facility] Platelets (Bld) [#/Vol] 62 10*3/uL Low [facility] RBC (Bld) [#/Vol] 2.15 10*6/uL Low 4.21 - 5.7 7 m/uL [facility] WBC (Bld) [#/Vol] 5.6 10*3/uL [facility] CBC with Auto Differentialon 07-28-2022 Absolute Eos # 0.00 [facility] Absolute Immature Granulocyte 0.07 [facility] Absolute Lymph # 0.34 Low [facility] Absolute Imperial # 0.00 Low [facility] Basophils (Bld) [#/Vol] 0.00 10*3/uL [facility] Basophils/100 WBC (Bld) 0 % 0 - 2 % [facility] Eosinophils/100 WBC (Bld) 0 % Low 1 - 4 % [facility] Hematocrit (Bld) [Volume fraction] 18.8 % Low 40.7 - 50.3 % [facility] Hemoglobin (Bld) [Mass/Vol] 6.5 g/dL Critically low 13.0 - 17.0 g/dL [facility] Immature granulocytes/100 WBC (Bld) 1 % High 0 [facility] Interpretation and review of laboratory results Abnormal [facility] Lymphocytes/100 WBC (Bld) 5 % Low 24 - 44 % [facility] MCH (RBC) [Entitic mass] 30.8 pg 25.2 - 33.5 pg [facility] MCHC (RBC) [Mass/Vol] 34.6 g/dL 28.4 - 34.8 g/dL [facility] MCV (RBC) [Entitic vol] 89.1 fL 82.6 - 102.9 fL [facility] Monocytes/100 WBC (Bld) 0 % Low 1 - 7 % [facility] Morphology William (Bld) [Interp] Normal [facility] NRBC Automated 0.0 0.0 per 100 WBC [facility] Platelet distribution width (Bld) [Ratio] 13.9 % 11.8 - 14.4 % [facility] Platelet mean volume (Bld) [Entitic vol] 11.0 fL 8.1 - 13.5 fL [facility] Platelets (Bld) [#/Vol] 64 10*3/uL Low [facility] RBC (Bld) [#/Vol] 2.11 10*6/uL Low 4.21 - 5.7 7 m/uL [facility] Segmented neutrophils/100 WBC (Bld) 94 % High 36 - 66 % [facility] Segs Absolute 6.29 [facility] WBC (Bld) [#/Vol] 6.7 10*3/uL [facility] CBC with Diffon 07-28-2022 Abs. Basophil 0.00 k/uL Normal 0.0-0.[address] [facility] Comment on above: Performed By: #### F KLLC, BNP, PHEP, CDP #### [facility] [address] [place] [phone] Meat Counter Worker: Evelio Vasquez MD Abs.Imm.Granulocyte 0.07 k/uL Normal 0.00-0.[address] [facility] Comment on above: Performed By: #### F KLLC, BNP, PHEP, CDP #### [facility] [address] [place] [phone] Meat Counter Worker: Evelio Vasquez MD Abs.Neutrophil (Seg) 6.29 k/uL Normal 1.8-7.7 [facility] Comment on above: Performed By: #### F KLLC, BNP, PHEP, CDP #### [facility] [address] [place] [address] Meat Counter Worker: Evelio Vasquez MD Basophils/100 WBC (Bld) 0 % Normal 0-[address] [facility] Comment on above: Performed By: #### F KLLC, BNP, PHEP, CDP #### [facility] [address] [place] [address] Meat Counter Worker: Evelio Vasquez MD Eosinophils (Bld) [#/Vol] 0.00 10*3/uL Normal 0.0-0.[address] [facility] Comment on above: Performed By: #### F KLLC, BNP, PHEP, CDP #### [facility] [address] [place] [address] Meat Counter Worker: Evelio Vasquez MD Eosinophils/100 WBC (Bld) 0 % Low 1-[address] [facility] Comment on above: Performed By: #### F KLLC, BNP, PHEP, CDP #### [facility] [address] [place] [phone] Meat Counter Worker: Evelio Vasquez MD Immature granulocytes/100 WBC (Bld) 1 % High [address] [facility] Comment on above: Performed By: #### F KLLC, BNP, PHEP, CDP #### [facility] [address] [place] [phone] Meat Counter Worker: Evelio Vasquez MD Lymphocytes (Bld) [#/Vol] 0.34 10*3/uL Low 1.0-4.[address] [facility] Comment on above: Performed By: #### F KLLC, BNP, PHEP, CDP #### [address] [address] Meat Counter Worker: Evelio Vasquez MD Lymphocytes/100 WBC (Bld) 5 % Low 24-[address] [facility] Comment on above: Performed By: #### F KLLC, BNP, PHEP, CDP #### [address] [address] Meat Counter Worker: Evelio Vasquez MD Monocytes (Bld) [#/Vol] 0.00 10*3/uL Low 0.1-0.[address] [facility] Comment on above: Performed By: #### F KLLC, BNP, PHEP, CDP #### [facility] [address] [place] [id number] Meat Counter Worker: Evelio Vasquez MD Monocytes/100 WBC (Bld) 0 % Low 1-[address] [facility] Comment on above: Performed By: #### F KLLC, BNP, PHEP, CDP #### [address] [address] Meat Counter Worker: Evelio Vasquez MD Morphology William (Bld) [Interp] Normal Normal [facility] Comment on above: Performed By: #### F KLLC, BNP, PHEP, CDP #### [facility] [address] [place] [phone] Meat Counter Worker: Evelio Vasquez MD Neutrophil (Seg) 94 % High 36-66 [facility] Comment on above: Performed By: #### F KLLC, BNP, PHEP, CDP #### [facility] [address] [place] [phone] Meat Counter Worker: Evelio Vasquez MD Erythrocyte distribution width (RBC) [Ratio] 13.9 % Normal 11.8-14.[address] [facility] Comment on above: Performed By: #### F KLLC, BNP, PHEP, CDP #### [facility] [address] [place] [phone] Meat Counter Worker: Evelio Vasquez MD Hematocrit (Bld) [Volume fraction] 18.8 % Low 40.7-50.[address] [facility] Comment on above: Performed By: #### F KLLC, BNP, PHEP, CDP #### [facility] [address] [place] [phone] Meat Counter Worker: Evelio Vasquez MD Hemoglobin (Bld) [Mass/Vol] 6.5 g/dL Critically low 13.0-17.[address] [facility] Comment on above: Performed By: #### F KLLC, BNP, PHEP, CDP #### [facility] [address] [place] [id number] Meat Counter Worker: Evelio Vasquez MD MCH (RBC) [Entitic mass] 30.8 pg Normal 25.2-33.[address] [facility] Comment on above: Performed By: #### F KLLC, BNP, PHEP, CDP #### [facility] [address] [place] [phone] Meat Counter Worker: Evelio Vasquez MD MCHC (RBC) [Mass/Vol] 34.6 g/dL Normal 28.4-34.8 [facility] Comment on above: Performed By: #### F KLLC, BNP, PHEP, CDP #### [facility] [address] [place] [id number] Meat Counter Worker: Evelio Vasquez MD MCV (RBC) [Entitic vol] 89.1 fL Normal 82.6-102.[address] [facility] Comment on above: Performed By: #### F KLLC, BNP, PHEP, CDP #### [facility] [address] [place] [id number] Meat Counter Worker: Evelio Vasquez MD NRBC Automated 0.0 per 100 WBC Normal 0.[address] [facility] Comment on above: Performed By: #### F KLLC, BNP, PHEP, CDP #### [facility] [address] [place] [phone] Meat Counter Worker: Evelio Vasquez MD Platelet mean volume (Bld) [Entitic vol] 11.0 fL Normal 8.1-13.[address] [facility] Comment on above: Performed By: #### F KLLC, BNP, PHEP, CDP #### [facility] [address] [place] [phone] Meat Counter Worker: Evelio Vasquez MD Platelets (Bld) [#/Vol] 64 10*3/uL Low 138-[address] [facility] Comment on above: Performed By: #### F KLLC, BNP, PHEP, CDP #### [facility] [address] [place] [id number] Meat Counter Worker: Evelio Vasquez MD RBC (Bld) [#/Vol] 2.11 10*6/uL Low 4.21-5.[address] [facility] Comment on above: Performed By: #### F KLLC, BNP, PHEP, CDP #### [facility] [address] [place] [phone] Meat Counter Worker: Evelio Vasquez MD WBC (Bld) [#/Vol] 6.7 10*3/uL Normal 3.5-11.[address] [facility] Comment on above: Performed By: #### F KLLC, BNP, PHEP, CDP #### [facility] [address] [place] [phone] Meat Counter Worker: Evelio Vasquez MD CTA ABDOMEN PELVIS W CONTRAS Ton 07-28-2022 CTA ABDOMEN PELVIS W CONTRAST EXAMINATION: CTA OF THE ABDOMEN AND PELVIS WITH CONTRAST 07/28/2022 7:11 pm: TECHNIQUE: CTA of the abdomen and pelvis was performed with the administration of intravenous contrast. Multiplanar reformatted images are provided for review. MIP images are provided for review. Automated exposure control, iterative reconstruction, and/or weight based adjustment of the mA/kV was utilized to reduce the radiation dose to as low as reasonably achievable. COMPARISON: None. HISTORY: ORDERING SYSTEM PROVIDED HISTORY: concern for GI bleed TECHNOLOGIST PROVIDED HISTORY: concern for GI bleed FINDINGS: CT angiogram: No evidence of active extravasation or arteriovenous malformation is noted. However there is a focal area of dilatation and beading involving the superior mesenteric arterial branches at its mid level anterior to the pancreas. Adjacent to this segment there is a partially calcified tubular structure which is hyperdense on the noncontrast phase with no evidence of enhancement throughout the multiphasic examination. No dissection. No intimal injury. No other hemodynamically significant stenosis. Aorta and the origin of major arteries are otherwise widely patent. LOWER CHEST: Visualized portion of the lower chest demonstrates no acute abnormality. KIDNEYS AND URINARY TRACT: Bilateral 3-7 mm nonobstructing kidney stones. Moderate left and mild right atrophy of the kidneys. There is mild left-sided hydroureteronephrosis with apparent 5 mm stone at the level of left ureterovesical junction/posterior urinary bladder wall. There is no evidence for hydronephrosis. The ureters are of normal course and caliber. ORGANS: Visualized portions of the liver, spleen, pancreas, gallbladder, and adrenal glands demonstrate no acute abnormality. GI/BOWEL: No bowel obstruction. No evidence of acute appendicitis. PELVIS: The bladder and pelvic organs are unremarkable. Urinary bladder contains Freeman catheter. PERITONEUM/RETROPERITONE UM: No free air or free fluid is noted. No pathologically enlarged lymphadenopathy. The vasculature do not demonstrate acute abnormality. BONES/SOFT TISSUES: The osseous structures demonstrate no acute abnormality. Right femoral vein catheter is in place with tip terminating within the right external iliac artery. Small amount of air is noted within bilateral femoral veins likely related to recent instrumentation. Changes related to prior gastric surgery likely appropriate gastric bypass surgery. There is significant amount of thickening of the gastric wall most pronounced anteriorly. IMPRESSION: There is significant amount of thickening of the gastric wall most pronounced anteriorly. Changes related to prior gastric surgery. No evidence of active extravasation or arteriovenous malformation is noted. However there is a focal area of dilatation and beading involving the superior mesenteric arterial branches at its mid level anterior to the pancreas. Adjacent to this segment there is a partially calcified tubular structure which is hyperdense on the noncontrast phase with no evidence of enhancement throughout the multiphasic examination. Alvarez images are made. 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 Thrombosed venous structure is less likely considering the imaging appearance. Another possibility is this tubular structure may be arising from the adjacent posterior wall of the stomach. Bilateral 3-7 mm nonobstructing kidney stones. mild left-sided hydroureteronephrosis with apparent 5 mm stone at the level of left ureterovesical junction/posterior urinary bladder wall. The findings were sent to the Radiology Results Communication Center at 8:24 pm on 07/28/2022 to be communicated to a licensed caregiver. Interpreted by: Saida Perry MD Signed by: Saida Perry MD 07/28/22 Final result Normal [facility] There is significant amount of thickening of the gastric wall most pronounced anteriorly. Changes related to prior gastric surgery. No evidence of active extravasation or arteriovenous malformation is noted. However there is a focal area of dilatation and beading involving the superior mesenteric arterial branches at its mid level anterior to the pancreas. Adjacent to this segment there is a partially calcified tubular structure which is hyperdense on the noncontrast phase with no evidence of enhancement throughout the multiphasic examination. Alvarez images are made. 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 Thrombosed venous structure is less likely considering the imaging appearance. Another possibility is this tubular structure may be arising from the adjacent posterior wall of the stomach. Bilateral 3-7 mm nonobstructing kidney stones. mild left-sided hydroureteronephrosis with apparent 5 mm stone at the level of left ureterovesical junction/posterior urinary bladder wall. The findings were sent to the Radiology Results Communication Center at 8:24 pm on 07/28/2022 to be communicated to a licensed caregiver. [facility] EXAMINATION: CTA OF THE ABDOMEN AND PELVIS WITH CONTRAST 07/28/2022 7:11 pm: TECHNIQUE: CTA of the abdomen and pelvis was performed with the administration of intravenous contrast. Multiplanar reformatted images are provided for review. MIP images are provided for review. Automated exposure control, iterative reconstruction, and/or weight based adjustment of the mA/kV was utilized to reduce the radiation dose to as low as reasonably achievable. COMPARISON: None. HISTORY: ORDERING SYSTEM PROVIDED HISTORY: concern for GI bleed TECHNOLOGIST PROVIDED HISTORY: concern for GI bleed FINDINGS: CT angiogram: No evidence of active extravasation or arteriovenous malformation is noted. However there is a focal area of dilatation and beading involving the superior mesenteric arterial branches at its mid level anterior to the pancreas. Adjacent to this segment there is a partially calcified tubular structure which is hyperdense on the noncontrast phase with no evidence of enhancement throughout the multiphasic examination. No dissection. No intimal injury. No other hemodynamically significant stenosis. Aorta and the origin of major arteries are otherwise widely patent. LOWER CHEST: Visualized portion of the lower chest demonstrates no acute abnormality. KIDNEYS AND URINARY TRACT: Bilateral 3-7 mm nonobstructing kidney stones. Moderate left and mild right atrophy of the kidneys. There is mild left-sided hydroureteronephrosis with apparent 5 mm stone at the level of left ureterovesical junction/posterior urinary bladder wall. There is no evidence for hydronephrosis. The ureters are of normal course and caliber. ORGANS: Visualized portions of the liver, spleen, pancreas, gallbladder, and adrenal glands demonstrate no acute abnormality. GI/BOWEL: No bowel obstruction. No evidence of acute appendicitis. PELVIS: The bladder and pelvic organs are unremarkable. Urinary bladder contains Freeman catheter. PERITONEUM/RETROPERITONE UM: No free air or free fluid is noted. No pathologically enlarged lymphadenopathy. The vasculature do not demonstrate acute abnormality. BONES/SOFT TISSUES: The osseous structures demonstrate no acute abnormality. Right femoral vein catheter is in place with tip terminating within the right external iliac artery. Small amount of air is noted within bilateral femoral veins likely related to recent instrumentation. Changes related to prior gastric surgery likely appropriate gastric bypass surgery. There is significant amount of thickening of the gastric wall most pronounced anteriorly. Saida Rand MD - 07/28/2022 EXAMINATION: CTA OF THE ABDOMEN AND PELVIS WITH CONTRAST 07/28/2022 7:11 pm: TECHNIQUE: CTA of the abdomen and pelvis was performed with the administration of intravenous contrast. Multiplanar reformatted images are provided for review. MIP images are provided for review. Automated exposure control, iterative reconstruction, and/or weight based adjustment of the mA/kV was utilized to reduce the radiation dose to as low as reasonably achievable. COMPARISON: None. HISTORY: ORDERING SYSTEM PROVIDED HISTORY: concern for GI bleed TECHNOLOGIST PROVIDED HISTORY: concern for GI bleed FINDINGS: CT angiogram: No evidence of active extravasation or arteriovenous malformation is noted. However there is a focal area of dilatation and beading involving the superior mesenteric arterial branches at its mid level anterior to the pancreas. Adjacent to this segment there is a partially calcified tubular structure which is hyperdense on the noncontrast phase with no evidence of enhancement throughout the multiphasic examination. No dissection. No intimal injury. No other hemodynamically significant stenosis. Aorta and the origin of major arteries are otherwise widely patent. LOWER CHEST: Visualized portion of the lower chest demonstrates no acute abnormality. KIDNEYS AND URINARY TRACT: Bilateral 3-7 mm nonobstructing kidney stones. Moderate left and mild right atrophy of the kidneys. There is mild left-sided hydroureteronephrosis with apparent 5 mm stone at the level of left ureterovesical junction/posterior urinary bladder wall. There is no evidence for hydronephrosis. The ureters are of normal course and caliber. ORGANS: Visualized portions of the liver, spleen, pancreas, gallbladder, and adrenal glands demonstrate no acute abnormality. GI/BOWEL: No bowel obstruction. No evidence of acute appendicitis. PELVIS: The bladder and pelvic organs are unremarkable. Urinary bladder contains Freeman catheter. PERITONEUM/RETROPERITONE UM: No free air or free fluid is noted. No pathologically enlarged lymphadenopathy. The vasculature do not demonstrate acute abnormality. BONES/SOFT TISSUES: The osseous structures demonstrate no acute abnormality. Right femoral vein catheter is in place with tip terminating within the right external iliac artery. Small amount of air is noted within bilateral femoral veins likely related to recent instrumentation. Changes related to prior gastric surgery likely appropriate gastric bypass surgery. There is significant amount of thickening of the gastric wall most pronounced anteriorly. IMPRESSION: There is significant amount of thickening of the gastric wall most pronounced anteriorly. Changes related to prior gastric surgery. No evidence of active extravasation or arteriovenous malformation is noted. However there is a focal area of dilatation and beading involving the superior mesenteric arterial branches at its mid level anterior to the pancreas. Adjacent to this segment there is a partially calcified tubular structure which is hyperdense on the noncontrast phase with no evidence of enhancement throughout the multiphasic examination. Alvarez images are made. 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 Thrombosed venous structure is less likely considering the imaging appearance. Another possibility is this tubular structure may be arising from the adjacent posterior wall of the stomach. Bilateral 3-7 mm nonobstructing kidney stones. mild left-sided hydroureteronephrosis with apparent 5 mm stone at the level of left ureterovesical junction/posterior urinary bladder wall. The findings were sent to the Radiology Results Communication Center at 8:24 pm on 07/28/2022 to be communicated to a licensed caregiver. NICO Work Phone: NICO Work Phone: Radiology Study observation (narrative) [employer] Phone: Calcium [Mass/volume] in Ser um or PlasmaOrdered By: Saima Sanders on 07-28-2022 Calcium [Mass/Vol] 6.4 mg/dL 8.6-10.3 [facility] Comment on above: Critical Result Call ed to and read back by: KAYLA SHEEHAN at: 07/28/2022 01:51:10 by:[id number] Calcium, Ionicon 07-28-2022 Calcium [Moles/Vol] 0.93 mmol/L Low 1.13-1.33 [facility] Comment on above: Performed By: #### P T, CBC #### [facility] [place] [address] Meat Counter Worker: Evelio Vasquez MD Calcium, Ionizedon 3 Calcium.ionized (Bld) [Moles/Vol] 0.93 mmol/L Low 1.13 - 1.33 mmol/L NICO Interpretation and review of laboratory results Abnormal [facility] FLS Energy Carbon dioxide, total [Moles /volume] in Serum or PlasmaOrdered By: Saima Sanders on 03-13-2023 CO2 [Moles/Vol] 13.3 mmol/L 21.0-31.0 [facility] Chloride [Moles/volume] in S franky or PlasmaOrdered By: Saima Sanders on 07-28-2022 Chloride [Moles/Vol] 114 mmol/L 98-107 [facility] Comprehensive Metabolic Pane adalid 07-28-2022 Albumin [Mass/Vol] 2.9 g/dL Low 3.5-5.7 [facility] Comment on above: Performed By: #### S CAN CBC, CMP ####[place] [id number] [place] [id number] [facility] Albumin/Globulin [Mass ratio] 2.1 {ratio} Normal [facility] Comment on above: Performed By: #### S CAN CBC, CMP ####[place] [id number] [place] [address] [facility] ALP [Catalytic activity/Vol] 30 U/L Low 34-104 [facility] Comment on above: Performed By: #### S CAN CBC, CMP ####[address] [address] [facility] ALT [Catalytic activity/Vol] 10 U/L Normal 7-52 [facility] Comment on above: Performed By: #### S CAN CBC, CMP ####[place] [id number] [place] [id number] [facility] Anion gap [Moles/Vol] 19.0 mmol/L High 6.0-15.0 [facility] Comment on above: Performed By: #### S CAN CBC, CMP ####[address] [address] [facility] AST [Catalytic activity/Vol] 13 U/L Normal 13-39 [facility] Comment on above: Performed By: #### S CAN CBC, CMP ####[address] [address] [facility] Bilirubin [Mass/Vol] 0.3 mg/dL Normal 0.3-1.0 [facility] Comment on above: Performed By: #### S CAN CBC, CMP ####[address] [address] [facility] Calcium [Mass/Vol] 6.4 mg/dL Off scale low 8.6-10.3 [facility] Comment on above: Result Comment: Crit ical Result Called to and read back by: KAYLA SHEEHAN at: 07/28/2022 01:51:10 by:[id number] Performed By: #### S CAN CBC, CMP ####[place] [id number] [place] [id number] [facility] Chloride [Moles/Vol] 114 mmol/L High 98-107 [facility] Comment on above: Performed By: #### S CAN CBC, CMP ####[place] [id number] [place] [id number] [facility] CO2 [Moles/Vol] 13.3 mmol/L Low 21.0-31.0 [facility] Comment on above: Performed By: #### S CAN CBC, CMP ####[place] [id number] [facility] Creatinine [Mass/Vol] 7.17 mg/dL High 0.70-1.30 [facility] Comment on above: Performed By: #### S CAN CBC, CMP ####[place] [id number] [facility] Creatinine Clr Calc Pharmacy 11.42 [facility] Comment on above: Result Comment: PERF ORMED BY: [facility] [address] [place] [address] PATHOLOGIST SCRUBBING MACHINE OPERATOR RADHA PETERSON M.D. Performed By: #### S CAN CBC, CMP ####[place] [id number] [facility] GFR/1.73 sq M.predicted MDRD (S/P/Bld) [Vol rate/Area] 7.905 mL/min/{1.73_m2} [facility] Comment on above: Performed By: #### S CAN CBC, CMP ####[place] [id number] [facility] Globulin (S) [Mass/Vol] 1.4 g/dL [facility] Comment on above: Performed By: #### S CAN CBC, CMP ####[facility] [id number] [place] [address] [facility] Glucose [Mass/Vol] 132 mg/dL High 74-109 [facility] Comment on above: Result Comment: [place] Glucose Reference Range is dependent on time and content of last meal. Glucose of more than 200 mg/dL in a nonstressed, ambulatory subject supports the diagnosis of Diabetes Mellitus. ADA recommended reference range Performed By: #### S CAN CBC, CMP ####[facility] [id number] [place] [address] [facility] Potassium [Moles/Vol] 3.3 mmol/L Low 3.5-5.1 [facility] Comment on above: Performed By: #### S CAN CBC, CMP ####[facility] [id number] [place] [address] [facility] Protein [Mass/Vol] 4.3 g/dL Low 6.4-8.9 [facility] Comment on above: Performed By: #### S CAN CBC, CMP ####[facility] [id number] [place] [address] [facility] Sodium [Moles/Vol] 143 mmol/L Normal 136-145 [facility] Comment on above: Performed By: #### S CAN CBC, CMP ####[facility] [id number] [place] [address] [facility] Urea nitrogen [Mass/Vol] 128 mg/dL High 7-25 [facility] Comment on above: Performed By: #### S CAN CBC, CMP ####[facility] [id number] [place] [id number] [facility] Creatinine [Mass/volume] in Serum or PlasmaOrdered By: Saima Sanders on 07-28-2022 Creatinine [Mass/Vol] 7.17 mg/dL 0.70-1.30 [facility] Creatinine, Random Urineon 0 07-28-2022 Creatinine, Ur 63.2 mg/dL 39.0 - 259.0 mg/dL [facility] Creatinine,Random Uron 07-28 Creatinine [Mass/Vol] 63.2 mg/dL Normal 39.0-259.0 [facility] Comment on above: Performed By: #### F KLLC, BNP, PHEP, CDP #### [facility] [address] [place] [address] [id number] Meat Counter Worker: Evelio Vasquez MD Eosinophils Auto (Bld) [#/Vo l]Ordered By: Saima Sanders on 07-28-2022 Eosinophils (Bld) [#/Vol] 0.1 10*3/uL 0.0-0.45 [facility] Eosinophils/100 WBC Auto (Bl d)Ordered By: Saima Sanders on 07-28-2022 Eosinophils/100 WBC (Bld) 1.7 % . [facility] Erythrocyte distribution wid th Auto (RBC) [Ratio]Ordered By: Saima Sanders on 07-28-2022 Erythrocyte distribution width (RBC) [Ratio] 13.5 % 12.0-14.8 [facility] FFP, Transfuseon 07-28-2022 FFP, Transfuse Unit Number [id number] Blood Component Type FRESH PLASMA Unit Division 00 Status of Unit TRANSFUSED Transfusion Status OK TO TRANSFUSE Normal [facility] Comment on above: Performed By: #### P T, CBC #### [facility] [address] [place] [phone] Meat Counter Worker: Evelio Vasquez MD FFP, Transfuse Unit Number [id number] Blood Component Type FRESH PLASMA Unit Division 00 Status of Unit TRANSFUSED Transfusion Status OK TO TRANSFUSE Normal [facility] Comment on above: Performed By: #### P T, CBC #### [facility] [address] [place] [phone] Meat Counter Worker: Evelio Vasquez MD FFP, Transfuse Unit Number [id number] Blood Component Type FRESH PLASMA Unit Division 00 Status of Unit TRANSFUSED Transfusion Status OK TO TRANSFUSE [facility] Comment on above: Performed By: #### P T, CBC #### [facility] [address] [place] [phone] Meat Counter Worker: Evelio Vasquez MD Free [place] + Lambdaon 2022 Free [place] Lt Chains 8.48 mg/dL High 0.37-1.94 [facility] Comment on above: Performed By: #### F KLLC, BNP, PHEP, CDP #### [facility] [address] [place] [phone] Meat Counter Worker: Evelio Vasquez MD Free [place]/Lambda Rat 1.66 High 0.26-1.65 [facility] Comment on above: Performed By: #### F KLLC, BNP, PHEP, CDP #### [address] [address] Meat Counter Worker: Evelio Vasquez MD Free Lambda Lt Chains 5.10 mg/dL High 0.57-2.63 [facility] Comment on above: Performed By: #### F KLLC, BNP, PHEP, CDP #### [address] [address] Meat Counter Worker: Evelio Vasquez MD Global Hemostasis(TEG 6S)on 07-28-2022 Angle TEG 67.1 deg Normal 63.0-78.[address] [facility] Comment on above: Performed By: #### T PLT #### [address] [address] Meat Counter Worker: Evelio Vasquez MD Fibrinogen, Func TEG 12.0 mm Low 15.0-32.0 [facility] Comment on above: Performed By: #### T PLT #### [address] [address] Meat Counter Worker: Evelio Vasquez MD K (Kinetics) TEG 2.3 min High 0.8-2.1 [facility] Comment on above: Performed By: #### T PLT #### [address] [address] Meat Counter Worker: Evelio Vasquez MD MA (Max Clot) TEG 43.0 mm Low 52.0-69.0 [facility] Comment on above: Performed By: #### T PLT #### [place] [address] [place] [address] Meat Counter Worker: Evelio Vasquez MD MA Rapid TEG 40.0 mm Low 52.0-70.[address] [facility] Comment on above: Performed By: #### T PLT #### [facility] [address] [place] [address] Meat Counter Worker: MD Ray Dyer TEG w/Hep 3.9 min Low 4.3-8.[address] [facility] Comment on above: Performed By: #### T PLT #### [facility] [address] [place] [address] Meat Counter Worker: MD Ray Dyer(Reaction Time) TEG 3.9 min Low 4.6-9.1 [facility] Comment on above: Performed By: #### T PLT #### [address] [address] Meat Counter Worker: Evelio Vasquez MD Globulin Calc (S) [Mass/Vol] Ordered By: Saima Sanders on 07-28-2022 Globulin (S) [Mass/Vol] 1.4 g/dL [facility] Glucose Glucometer (BldC) [M ass/Vol]Ordered By: Tk Shah on 07-28-2022 Glucose [Mass/Vol] 147 mg/dL [facility] Comment on above: Random Glucose Refer ence Range is dependent on time and content of last meal. Glucose of more than 200 mg/dL in a nonstressed, ambulatory subject supports the diagnosis of Diabetes Mellitus. Glucose Poct Glucometerson 0 07-28-2022 Glucose [Mass/Vol] 147 mg/dL Normal [facility] Comment on above: Result Comment: [place] Glucose Reference Range is dependent on time and content of last meal. Glucose of more than 200 mg/dL in a nonstressed, ambulatory subject supports the diagnosis of Diabetes Mellitus. PERFORMED BY: [facility] [place] [address] PATHOLOGIST SCRUBBING MACHINE OPERATOR RADHA PETERSON M.D. Performed By: #### G TANYA ####Point of Care testing, Glucose [Mass/volume] in Ser um or PlasmaOrdered By: Saima Sanders on 07-28-2022 Glucose [Mass/Vol] 132 mg/dL 74-109 [facility] Comment on above: ADA recommended refe rence rangeRandom Glucose Reference Range is dependent on time and content of last meal. Glucose of more than 200 mg/dL in a nonstressed, ambulatory subject supports the diagnosis of Diabetes Mellitus. Hematocrit Auto (Bld) [Volum e fraction]Ordered By: Saima Sanders on 07-28-2022 Hematocrit (Bld) [Volume fraction] 14.4 % 38.8-50.0 [facility] Comment on above: Critical Result HCT: 14.4 called to and read back by: DAKOTA AMIN on 07/28/2022 01:35:53 by:[email or web address]. Hemoglobin [Mass/volume] in BloodOrdered By: Saima Sanders on 07-28-2022 Hemoglobin (Bld) [Mass/Vol] 5.0 g/dL 13.0-17.0 [facility] Hemoglobin and Hematocriton 07-28-2022 Hematocrit (Bld) [Volume fraction] 19.4 % Low 40.7 - 50.3 % [facility] Hemoglobin (Bld) [Mass/Vol] 6.9 g/dL Critically low 13.0 - 17.0 g/dL [facility] Interpretation and review of laboratory results Abnormal [facility] Hematocrit (Bld) [Volume fraction] 19.4 % Low 40.7 - 50.3 % [facility] [employer] Hemoglobin (Bld) [Mass/Vol] 6.9 g/dL Critically low 13.0 - 17.0 g/dL [facility] Interpretation and review of laboratory results Abnormal [facility] Hematocrit (Bld) [Volume fraction] 17.5 % Low 40.7 - 50.3 % [facility] Hemoglobin (Bld) [Mass/Vol] 6.1 g/dL Critically low 13.0 - 17.0 g/dL [facility] Interpretation and review of laboratory results Abnormal [facility] Hepatic Function Panelon Albumin [Mass/Vol] 2.2 g/dL Low 3.5 - 5.2 g/dL [facility] Albumin/Globulin [Mass ratio] 2.4 {ratio} 1.0 - 2.5 [facility] ALP [Catalytic activity/Vol] 24 U/L Low 40 - 129 U/L [facility] ALT [Catalytic activity/Vol] 9 U/L 5 - 41 U/L [facility] AST [Catalytic activity/Vol] 13 U/L NINF - 40 U/L [facility] Bilirubin [Mass/Vol] 0.7 mg/dL 0.3 - 1 .2 mg/dL [facility] Bilirubin.direct [Mass/Vol] 0.2 mg/dL NINF - 0.3 mg/dL [facility] Bilirubin.indirect [Mass/Vol] 0.5 mg/dL 0.0 - 1.0 mg/dL [facility] Interpretation and review of laboratory results Abnormal [facility] Protein [Mass/Vol] 3.1 g/dL Low 6.4 - 8.3 g/dL [facility] Hepatitis Acute Bg 07-28 Hep A Ab,IgM Non-Reactive Normal NR [facility] Comment on above: Performed By: #### F KLLC, BNP, PHEP, CDP #### [facility] [address] [place] [address] Meat Counter Worker: Evelio Vasquez MD Hep B Core Ab,IgM Non-Reactive Normal NR [facility] Comment on above: Performed By: #### F KLLC, BNP, PHEP, CDP #### [facility] [place] [address] Meat Counter Worker: Evelio Vasquez MD Hep B Surf Ag Non-Reactive Normal NR [facility] Comment on above: Performed By: #### F KLLC, BNP, PHEP, CDP #### [facility] [address] [place], [place] [phone] Meat Counter Worker: Evelio Vasquez MD Hep C Ab Non-Reactive Normal NR [facility] Comment on above: Result Comment: The hepatitis C procedure used in our laboratory is a Chemiluminescent test specific for three recombinant HCV antigens. A negative anti-HCV result indicates that the antibodies to hepatitis C virus are not present at this time. Individuals with reactive anti-HCV should be considered infected and infectious until proven otherwise. Confirmation of all equivocal or reactive results is recommended by ordering HCV RNA by PCR. Performed By: #### F KLLC, BNP, PHEP, CDP #### [facility] [place], [place] [id number] Meat Counter Worker: Evelio Vasquez MD Hepatitis Panel, Acuteon HAV IgM Ql (S) Non-Reactive NONREACTIVE [facility] HBV core IgM Ql (S) Non-Reactive NONREACTIVE [facility] HBV surface Ag Ql (S) Non-Reactive NONREACTIVE [facility] HCV Ab Ql (S) Non-Reactive NONREACTIVE [facility] Comment on above: The hepatitis C procedure used in our laboratory is a Chemiluminescent test specific for three recombinant HCV antigens. A negative anti-HCV result indicates that the antibodies to hepatitis C virus are not present at this time. Individuals with reactive anti-HCV should be considered infected and infectious until proven otherwise. Confirmation of all equivocal or reactive results is recommended by ordering HCV RNA by PCR. [facility] Hgb/Hcton 07-28-2022 Hematocrit (Bld) [Volume fraction] 19.4 % Low 40.7-50.[address] [facility] Comment on above: Performed By: #### P T, CBC #### [facility] [address] [place], [place] [phone] Meat Counter Worker: Evelio Vasquez MD Hemoglobin (Bld) [Mass/Vol] 6.9 g/dL Critically low 13.0-17.[address] [facility] Comment on above: Performed By: #### P T, CBC #### [facility] [address] [place] [phone] Meat Counter Worker: Evelio Vasquez MD Hematocrit (Bld) [Volume fraction] 19.4 % Low 40.7-50.[address] [facility] Comment on above: Performed By: #### H H #### [facility] [address] [place] [phone] Meat Counter Worker: Evelio Vasquez MD Hemoglobin (Bld) [Mass/Vol] 6.9 g/dL Critically low 13.0-17.[address] [facility] Comment on above: Performed By: #### H H #### [facility] [address] [place] [phone] Meat Counter Worker: Evelio Vasquez MD Hematocrit (Bld) [Volume fraction] 17.5 % Low 40.7-50.[address] [facility] Comment on above: Performed By: #### P T, CBC #### [facility] [address] [place] [phone] Meat Counter Worker: Evelio Vasquez MD Hemoglobin (Bld) [Mass/Vol] 6.1 g/dL Critically low 13.0-17.[address] [facility] Comment on above: Performed By: #### P T, CBC #### [facility] [address] [place] [phone] Meat Counter Worker: Evelio Vasquez MD [place]/Lambda Quantitative Fr ee Light Chains, Serumon 07-28-2022 Free [place]/Lambda Ratio 1.66 High 0.26 - 1.65 [facility] Immunoglobulin light chains.kappa.free (S) [Mass/Vol] 8.48 mg/dL High 0.37 - 1.94 mg/dL [facility] Immunoglobulin light chains.lambda.free [Mass/Vol] 5.1 mg/dL High 0.57 - 2.63 mg/dL [facility] Interpretation and review of laboratory results Abnormal [facility] Laboratory - Chemistry and C hemistry - challengeOrdered By: Saima Sanders on 07-28-2022 GFR/1.73 sq M.predicted MDRD (S/P/Bld) [Vol rate/Area] 7.905 mL/min/{1.73_m2} [facility] Lactic Acidon 07-28-2022 Lactic Acid,Whole Bl 1.3 mmol/L Normal 0.7-2.1 [facility] Comment on above: Performed By: #### P T, CBC #### [facility] [address] [place] [phone] Meat Counter Worker: Evelio Vasquez MD Lactic Acid, Whole Blood 1.3 mmol/L 0.7 - 2.1 mmol/L [facility] LeukoReduced RBCon 3 LeukoReduced RBC NOT AVAILABLE Normal [facility] Leukocytes [#/volume] correc db for nucleated erythrocytes in Blood by Automated counOrdered By: Saima Sanders on 07-28-2022 WBC corrected for nucl RBC Auto (Bld) [#/Vol] 4.9 10*3/uL 4.1-10.5 [facility] Liver Profileon 07-28-2022 Albumin [Mass/Vol] 2.2 g/dL Low 3.5-5.[address] [facility] Comment on above: Performed By: #### T PLT #### [facility] [address] [place] [phone] Meat Counter Worker: Evelio Vasquez MD Albumin/Glob Ratio 2.4 Normal 1.0-2.[address] [facility] Comment on above: Performed By: #### T PLT #### [facility] [address] [place] [address] [phone] Meat Counter Worker: Evelio Vasquez MD Alkaline Phos 24 U/L Low 40-[address] [facility] Comment on above: Performed By: #### T PLT #### [facility] [address] [place] [phone] Meat Counter Worker: Evelio Vasquez MD ALT [Catalytic activity/Vol] 9 U/L Normal 5-[address] [facility] Comment on above: Performed By: #### T PLT #### [address] [address] Meat Counter Worker: Evelio Vasquez MD AST [Catalytic activity/Vol] 13 U/L Normal <[address] [facility] Comment on above: Performed By: #### T PLT #### [address] [address] Meat Counter Worker: Evelio Vasquez MD Bilirubin [Mass/Vol] 0.7 mg/dL Normal 0.3-1.2 [facility] Comment on above: Performed By: #### T PLT #### [address] [address] Meat Counter Worker: Evelio Vasquez MD Bilirubin, Indirect 0.5 mg/dL Normal 0.0-1.[address] [facility] Comment on above: Performed By: #### T PLT #### [address] [address] Meat Counter Worker: Evelio Vasquez MD Bilirubin.indirect [Mass/Vol] 0.2 mg/dL Normal <0.[address] [facility] Comment on above: Performed By: #### T PLT #### [address] [address] Meat Counter Worker: Evelio Vasquez MD Protein [Mass/Vol] 3.1 g/dL Low 6.4-8.[address] [facility] Comment on above: Performed By: #### T PLT #### [address] [address] Meat Counter Worker: Evelio Vasquez MD Lymphocytes Auto (Bld) [#/Vo l]Ordered By: Saima Sanders on 07-28-2022 Lymphocytes (Bld) [#/Vol] 1.4 10*3/uL 1.00-4.8 [facility] Lymphocytes/100 WBC Auto (Bl d)Ordered By: Saima Sanders on 07-28-2022 Lymphocytes/100 WBC (Bld) 29.1 % . [facility] MCH Auto (RBC) [Entitic mass ]Ordered By: Saima Sanders on 07-28-2022 MCH (RBC) [Entitic mass] 31.7 pg 27.5-35.2 [facility] MCHC Auto (RBC) [Mass/Vol]Or dered By: Saima Sanders on 07-28-2022 MCHC (RBC) [Mass/Vol] 34.7 g/dL 32.5-35.6 [facility] MCV Auto (RBC) [Entitic vol] Ordered By: Saima Sanders on 07-28-2022 MCV (RBC) [Entitic vol] 91.3 fL 83.5-101 [facility] MRSA, DNA, Nasalon Specimen Description .NASAL SWAB Normal [facility] Comment on above: Performed By: #### T PLT #### [facility] [address] [place], [place] [phone] Meat Counter Worker: Evelio Vasquez MD Magnesiumon 07-28-2022 Magnesium [Mass/Vol] 1.7 mg/dL Normal 1.6-2.6 [facility] Comment on above: Performed By: #### T PLT #### [facility] [address] [place] [address] [phone] Meat Counter Worker: Evelio Vasquez MD Magnesium [Mass/Vol] 1.7 mg/dL 1.6 - 2 .6 mg/dL [facility] Monocytes Auto (Bld) [#/Vol] Ordered By: Saima Sanders on 07-28-2022 Monocytes (Bld) [#/Vol] 0.5 10*3/uL 0.0-0.8 [facility] Monocytes/100 WBC Auto (Bld) Ordered By: Saima Sanders on 07-28-2022 Monocytes/100 WBC (Bld) 9.3 % . [facility] Neutrophils Auto (Bld) [#/Vo l]Ordered By: Saima Sanders on 07-28-2022 Neutrophils (Bld) [#/Vol] 2.9 10*3/uL 1.8-7.7 [facility] Neutrophils/100 WBC Auto (Bl d)Ordered By: Saima Sanders on 07-28-2022 Neutrophils/100 WBC (Bld) 59.3 % . [facility] No Panel Informationon 07-28 NICO Interpretation and review of laboratory results Abnormal [facility] [employer] [email or web address] No Panel InformationOrdered By: Saima Sanders on 07-28-2022 Pharmacy Creatinine Clearance (Chem 11.42 [facility] Nucleated erythrocytes [Pres ence] in Blood by Automated countOrdered By: Saima Sanders on 07-28-2022 Nucleated RBC Auto Ql (Bld) 0.1 /100{WBC} 0-0.5 [facility] Ovalocyte detectionOrdered B y: Saima Sanders on 07-28-2022 Ovalocytes LM Ql (Bld) Slight [facility] POC Glucose Fingerstickon Glucose [Mass/Vol] 112 mg/dL High 75 - 110 mg/dL [facility] Interpretation and review of laboratory results Abnormal [facility] PTon 07-28-2022 INR Coag (PPP) [Relative time] 1.3 {INR} Normal [facility] Comment on above: Result Comment: Therapeutic Range: Moderate Anticoagulant Intensity: INR = 2.0-3.0 High Anticoagulant Intensity: INR = 2.5-3.5 Performed By: #### P T, CBC #### [facility] [employer] [address] [place], [place] [id number] Meat Counter Worker: Evelio Vasquez MD PT Coag (PPP) [Time] 13.2 s High 9.1-12.3 [facility] Comment on above: Performed By: #### P T, CBC #### [facility] [employer] [address] [place] [id number] Meat Counter Worker: Evelio Vasquez MD INR Coag (PPP) [Relative time] 1.3 {INR} Normal [facility] Comment on above: Result Comment: Therapeutic Range: Moderate Anticoagulant Intensity: INR = 2.0-3.0 High Anticoagulant Intensity: INR = 2.5-3.5 Performed By: #### P T, CBC #### [facility] [employer] [address] [place] [id number] Meat Counter Worker: Evelio Vasquez MD PT Coag (PPP) [Time] 13.3 s High 9.1-12.3 [facility] Comment on above: Performed By: #### P T, CBC #### [facility] [employer] [address] [place] [address] [phone] Meat Counter Worker: Evelio Vasquez MD INR Coag (PPP) [Relative time] 1.3 {INR} Normal [facility] Comment on above: Result Comment: Therapeutic Range: Moderate Anticoagulant Intensity: INR = 2.0-3.0 High Anticoagulant Intensity: INR = 2.5-3.5 Performed By: #### T PLT #### [facility] [employer] [address] [place] [id number] Meat Counter Worker: Evelio Vasquez MD PT Coag (PPP) [Time] 13.7 s High 9.1-12.3 [facility] Comment on above: Performed By: #### T PLT #### [facility] [employer] [address] [place] [phone] Meat Counter Worker: Evelio Vasquez MD Platelet adequacy [Presence] in Blood by Light microscopyOrdered By: Saima Sanders on 07-28-2022 Platelets LM Ql (Bld) Normal Normal [facility] Platelet mean volume Auto (B ld) [Entitic vol]Ordered By: Saima Sandesr on 07-28-2022 Platelet mean volume (Bld) [Entitic vol] 8.5 fL 6.6-10.1 [facility] Platelet morphology finding [Identifier] in BloodOrdered By: Saima Sanders on 07-28-2022 Platelet morphology finding Nom (Bld) Normal Normal [facility] Platelets Auto (Bld) [#/Vol] Ordered By: Saima Sanders on 07-28-2022 Platelets (Bld) [#/Vol] 126 10*3/uL 150-450 [facility] Platelets,Transfuseon 2022 Platelets,Transfuse Unit Number [id number] Blood Component Type PthRePlt PAS Unit Division 00 Status of Unit TRANSFUSED Transfusion Status OK TO TRANSFUSE Normal [facility] Comment on above: Performed By: #### T PLT #### [facility] [address] [place] [address] Meat Counter Worker: Evelio Vasquez MD Poikilocytosis [Presence] in Blood by Light microscopyOrdered By: Saima Sanders on 07-28-2022 Poikilocytosis LM Ql (Bld) Slight [facility] Potassium [Moles/volume] in Serum or PlasmaOrdered By: Saima Sanders on 07-28-2022 Potassium [Moles/Vol] 3.3 mmol/L 3.5-5.1 [facility] Protein / creatinine ratio, urineon 07-28-2022 Creatinine, Ur 68.5 mg/dL 39.0 - 259.0 mg/dL [facility] Protein (U) [Mass/Vol] 8 mg/dL [facility] Comment on above: No normal range esta blished. Urine Total Protein Creatinine Ratio 0.12 0.00 - 0.20 [facility] Protein [Mass/volume] in Ser um or PlasmaOrdered By: Saima Sanders on 07-28-2022 Protein [Mass/Vol] 4.3 g/dL 6.4-8.9 [facility] Protein, urine, randomon Protein (U) [Mass/Vol] 7 mg/dL [facility] Comment on above: No normal range esta blished. Protein,Tot,[place] Uron 2022 Tot Prot. Conc. 7 mg/dL Normal [facility] Comment on above: Result Comment: No n ormal range established. Performed By: #### F KLLC, BNP, PHEP, CDP #### [facility] [address] [place] [id number] Meat Counter Worker: Evelio Vasquez MD Creatinine [Mass/Vol] 68.5 mg/dL Normal 39.0-259.0 [facility] Comment on above: Performed By: #### F KLLC, BNP, PHEP, CDP #### [facility] [address] [place] [id number] Meat Counter Worker: Evelio Vasquez MD Tot Prot. Conc. 8 mg/dL Normal [facility] Comment on above: Result Comment: No n ormal range established. Performed By: #### F KLLC, BNP, PHEP, CDP #### [facility] [address] [place] [phone] Meat Counter Worker: Evelio Vasquez MD TP/Cre Ratio 0.12 Normal 0.00-0.[address] [facility] Comment on above: Performed By: #### F KLLC, BNP, PHEP, CDP #### [facility] [address] [place] [phone] Meat Counter Worker: Evelio Vasquez MD Protime-INRon 07-28-2022 INR Coag (PPP) [Relative time] 1.3 {INR} [facility] Comment on above: Therapeutic Range: Moderate Anticoagulant Intensity: INR = 2.0-3.0 High Anticoagulant Intensity: INR = 2.5-3.5 Interpretation and review of laboratory results Abnormal [facility] PT Coag (PPP) [Time] 13.2 s High [facility] INR Coag (PPP) [Relative time] 1.3 {INR} [facility] Comment on above: Therapeutic Range: Moderate Anticoagulant Intensity: INR = 2.0-3.0 High Anticoagulant Intensity: INR = 2.5-3.5 Interpretation and review of laboratory results Abnormal [facility] PT Coag (PPP) [Time] 13.3 s High [facility]ITAL[facility] Hydra [facility] [email or web address] INR Coag (PPP) [Relative time] 1.3 {INR} [facility] Comment on above: Therapeutic Range: Moderate Anticoagulant Intensity: INR = 2.0-3.0 High Anticoagulant Intensity: INR = 2.5-3.5 Interpretation and review of laboratory results Abnormal [facility] PT Coag (PPP) [Time] 13.7 s High [facility] RBC Auto (Bld) [#/Vol]Ordere d By: Saima Sanders on 07-28-2022 RBC (Bld) [#/Vol] 1.58 10*6/uL 3.90-5.60 [facility] RBC morphologyOrdered By: Toribio Sanders on 07-28-2022 RBC morphology finding Nom (Bld) N/A [facility] Rouleaux detectionOrdered By : Saima Sanders on 07-28-2022 [facility] (Bld) Slight [facility] Scan and CBCon 07-28-2022 Basophils (Bld) [#/Vol] 0.0 10*3/uL Normal 0.0-0.2 [facility] Comment on above: Performed By: #### S CAN CBC, CMP ####[facility] [id number] [place] [address] [place] Basophils/100 WBC (Bld) 0.6 % Normal . [facility] Comment on above: Performed By: #### S CAN CBC, CMP ####[facility] [id number] [place] [address] [place] Eosinophils (Bld) [#/Vol] 0.1 10*3/uL Normal 0.0-0.45 [facility] Comment on above: Performed By: #### S CAN CBC, CMP ####[facility] [id number] [place] [id number] [place] Eosinophils/100 WBC (Bld) 1.7 % Normal . [facility] Comment on above: Performed By: #### S CAN CBC, CMP ####[place] [id number] [facility] Erythrocyte distribution width (RBC) [Ratio] 13.5 % Normal 12.0-14.8 [facility] Comment on above: Performed By: #### S CAN CBC, CMP ####[place] [id number] [facility] Hematocrit (Bld) [Volume fraction] 14.4 % Off scale low 38.8-50.0 [facility] Comment on above: Result Comment: Crit ical Result HCT:14.4 called to and read back by: DAKOTA AMIN on 07/28/2022 01:35:53 by:ONOFRE. Performed By: #### S CAN CBC, CMP ####[address] Hemoglobin (Bld) [Mass/Vol] 5.0 g/dL Low 13.0-17.0 [facility] Comment on above: Performed By: #### S CAN CBC, CMP ####[address] Lymphocytes (Bld) [#/Vol] 1.4 10*3/uL Normal 1.00-4.8 [facility] Comment on above: Performed By: #### S CAN CBC, CMP ####[place] [id number] [facility] Lymphocytes/100 WBC (Bld) 29.1 % Normal . [facility] Comment on above: Performed By: #### S CAN CBC, CMP ####[place] [id number] [facility] MCH (RBC) [Entitic mass] 31.7 pg Normal 27.5-35.2 [facility] Comment on above: Performed By: #### S CAN CBC, CMP ####[place] [id number] [facility] MCV (RBC) [Entitic vol] 91.3 fL Normal 83.5-101 [facility] Comment on above: Performed By: #### S CAN CBC, CMP ####[place] [id number] [facility] Mean Corpuscular HGB Conc 34.7 g/dL Normal 32.5-35.6 [facility] Comment on above: Performed By: #### S CAN CBC, CMP ####[place] [id number] [facility] Monocytes (Bld) [#/Vol] 0.5 10*3/uL Normal 0.0-0.8 [facility] Comment on above: Performed By: #### S CAN CBC, CMP ####[place] [id number] [facility] Monocytes/100 WBC (Bld) 9.3 % Normal . [facility] Comment on above: Performed By: #### S CAN CBC, CMP ####[address] Neutrophils (Bld) [#/Vol] 2.9 10*3/uL Normal 1.8-7.7 [facility] Comment on above: Performed By: #### S CAN CBC, CMP ####[place] [id number] [facility] Neutrophils/100 WBC (Bld) 59.3 % Normal . [facility] Comment on above: Performed By: #### S CAN CBC, CMP ####[place] [id number] [facility] NRBC% 0.1 /100{WBC} Normal 0-0.5 [facility] Comment on above: Performed By: #### S CAN CBC, CMP ####[place] [id number] [facility] Ovalocytes Slight Normal [facility] Comment on above: Performed By: #### S CAN CBC, CMP ####[place] [id number] [facility] Platelet Estimate Normal Normal Normal [facility] Comment on above: Performed By: #### S CAN CBC, CMP ####[place] [id number] [facility] Platelet mean volume (Bld) [Entitic vol] 8.5 fL Normal 6.6-10.1 [facility] Comment on above: Performed By: #### S CAN CBC, CMP ####[place] [id number] [facility] Platelet Morphology Normal Normal Normal [facility] Comment on above: Result Comment: PERF ORMED BY: [facility] [address] [place] [address] PATHOLOGIST SCRUBBING MACHINE OPERATOR RADHA PETERSON M.D. Performed By: #### S CAN CBC, CMP ####[address] [address] [facility] Platelets (Bld) [#/Vol] 126 10*3/uL Low 150-450 [facility] Comment on above: Performed By: #### S CAN CBC, CMP ####[place] [id number] [facility] Poikilocytosis Slight Normal [facility] Comment on above: Performed By: #### S CAN CBC, CMP ####[place] [id number] [facility] RBC (Bld) [#/Vol] 1.58 10*6/uL Low 3.90-5.60 [facility] Comment on above: Performed By: #### S CAN CBC, CMP ####[address] [address] [facility] Rouleaux Slight Normal [facility] Comment on above: Performed By: #### S CAN CBC, CMP ####[place] [id number] [facility] WBC (Bld) [#/Vol] 4.9 10*3/uL Normal 4.1-10.5 [facility] Comment on above: Performed By: #### S CAN CBC, CMP ####[place] [id number] [facility] Serum or plasma albumin/glob ulin mass ratioOrdered By: Saima Sanders on 07-28-2022 Albumin/Globulin [Mass ratio] 2.1 {ratio} [facility] Serum or plasma anion gap de terminationOrdered By: Saima Sanders on 07-28-2022 Anion gap [Moles/Vol] 19.0 mmol/L 6.0-15.0 [facility] Sodium [Moles/volume] in Ser um or PlasmaOrdered By: Saima Sanders on 07-28-2022 Sodium [Moles/Vol] 143 mmol/L 136-145 [facility] Sodium, Random Uron 07-29-19 23 Sodium (U) [Moles/Vol] 50 mmol/L Normal [facility] Comment on above: Result Comment: No n ormal range established. Performed By: #### F KLLC, BNP, PHEP, CDP #### [facility] [address] [place], [place] [phone] Meat Counter Worker: Evelio Vasquez MD Sodium (U) [Moles/Vol] 68 mmol/L Normal [facility] Comment on above: Result Comment: No n ormal range established. Performed By: #### F KLLC, BNP, PHEP, CDP #### [facility] [address] [place], [place] [id number] Meat Counter Worker: Evelio Vasquez MD Sodium, urine, randomon 07-16 Sodium (U) [Moles/Vol] 50 mmol/L [facility] [employer] Comment on above: No normal range esta blished. Sodium (U) [Moles/Vol] 68 mmol/L [facility] [employer] Comment on above: No normal range esta blished. Surgical Pathologyon 023 Surgical Pathology (NOTE) -- Diagnosis -- A. STOMACH, BIOPSY: -BENIGN GASTRIC BODY TYPE MUCOSA WITH FOVEOLAR HYPERPLASIA AND MILD CHRONIC ACTIVE GASTRITIS. -H. PYLORI IMMUNOSTAIN IS NEGATIVE. B. STOMACH, BIOPSY: -BENIGN GASTRIC BODY MUCOSA WITH FOVEOLAR HYPERPLASIA AND PATCHY MODERATE TO MARKED CHRONIC GASTRITIS WITH FOCAL MILD ACTIVITY. -INTESTINAL METAPLASIA PRESENT, NEGATIVE FOR DYSPLASIA. -SEPARATE PIECE OF UNREMARKABLE SMALL INTESTINAL MUCOSA. C. 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 Shahzad E. Sturtz, M.D. Electronically Signed Out umesh/07/29/2022 Clinical Information Pre-op Diagnosis: MELENA Operative Findings: GASTRIC TUMOR BX FROM THE R N Y; GASTRIC TUMOR BX FROM THE R N Y; DUODENUM POLYPECTOMY BX Operation Performed: ESOPHAGOGASTRODUODENOSCO PY SIGMOIDOSCOPY DIAGNOSTIC FLEXIBLE tm Source of Specimen A: GASTRIC TUMOR BX B: GASTRIC TUMOR BX C: DUODENUM POLYPECTOMY BX Gross Description A. MELE SKY, GASTRIC TUMOR BX FROM THE R N Y Received fresh are pink flecks, 0.3 x 0.2 x 0.1 cm in aggregate. 1FS, 1cs. tm B. MELE SKY, GASTRIC TUMOR BX Multiple hernandez-white tissue fragments from 0.1 to 0.3 cm and are 0.4 x 0.3 x 0.2 cm in aggregate. Entirely 1cs. C. MELE SKY, DUODENUM POLYPECTOMY BX Multiple hernandez-white tissue fragments from 0.2 to 0.6 cm and are 0.8 x 0.4 x 0.3 cm in aggregate. Entirely 1cs. ep tm Intraoperative Diagnosis FSDX: Benign gastric mucosa. (UMESH, 07/28/22, 2:32 p.m.) Microscopic Description A-C. Microscopic examination performed. A. Sections show gastric body type mucosa with foveolar hyperplasia and patchy mild chronic active gastritis. An H. pylori immunostain is negative. Pancytokeratin with stain reveals no infiltrating malignant epithelial cells. Controls react as expected. Permanent sections confirm the frozen section diagnosis. B. Sections show benign gastric body mucosa with foveolar hyperplasia and patchy moderate to marked chronic gastritis with areas of focal mild activity. Intestinal metaplasia is present in a scattered distribution that is negative for dysplasia. There is a separate piece of unremarkable small intestinal mucosa. C. Sections show multiple pieces of benign duodenal mucosa with gastric heterotopia. There is background mild to moderate active duodenitis. SURGICAL PATHOLOGY CONSULTATION Patient Name: MELE SKY [facility] Rec: [id number] Path Number: [id number] [employer] [facility] ANATOMIC PATHOLOGY [address] [place] [phone] [facility] Comment on above: Performed By: #### P T, CBC #### [facility] [address] [place] [address] [place] [phone] Meat Counter Worker: Evelio Vasquez MD TEG Global Hemostasison 07-16 Angle TEG 69.6 deg 63.0 - 78.0 deg [facility] Fibrinogen, Functional TEG 14.3 mm Low 15.0 - 32.0 mm [facility] Interpretation and review of laboratory results Abnormal [facility] Kinetics TEG 1.8 min 0.8 - 2.1 min [facility] MA (Max Clot) TEG 45.8 mm Low 52.0 - 69. 0 mm [facility] MA(Max Clot) Rapid TEG 42.5 mm Low 52.0 - 70.0 mm [facility] Reaction Time TEG 4.7 min 4.6 - 9.1 min [facility] Reaction Time TEG w Heparin 4.3 min 4.3 - 8.3 min [facility] Angle TEG 67.1 deg 63.0 - 78.0 deg [facility] Fibrinogen, Functional TEG 12.0 mm Low 15.0 - 32.0 mm [facility] Interpretation and review of laboratory results Abnormal [facility] Kinetics TEG 2.3 min High 0.8 - 2.1 min [facility] MA (Max Clot) TEG 43.0 mm Low 52.0 - 69. 0 mm [facility] MA(Max Clot) Rapid TEG 40.0 mm Low 52.0 - 70.0 mm [facility] Reaction Time TEG 3.9 min Low 4.6 - 9.1 min [facility] Reaction Time TEG w Heparin 3.9 min Low 4.3 - 8.3 min [facility] Troponinon 07-28-2022 Troponin, High Sens 58 ng/L Critically high 0-[address] [facility] Comment on above: Result Comment: High Sensitivity Troponin values cannot be compared with other Troponin methodologies. Performed By: #### T PLT #### [facility] [address] [place], [place] [phone] Meat Counter Worker: Evelio Vasquez MD Interpretation and review of laboratory results Abnormal [facility] Troponin I.cardiac DL <= 0.01 ng/mL [Mass/Vol] 58 ng/L Critically high 0 - 22 ng/L [facility] Comment on above: High Sensitivity Tro ponin values cannot be compared with other Troponin methodologies. [facility] Type + Screenon 07-28-2022 Type + Screen Sample Expiration 07/31/2022,2359 Arm Band Number [id number] ABO/Rh(D) B POSITIVE Antibody Screen NEGATIVE Unit Number [id number] Blood Component Type Leukocyte Reduced Red Cell Unit Division 00 Status of Unit TRANSFUSED Transfusion Status OK TO TRANSFUSE Crossmatch Result COMPATIBLE Unit Number [id number] Blood Component Type Leukocyte Reduced Red Cell Unit Division 00 Status of Unit TRANSFUSED Transfusion Status OK TO TRANSFUSE Crossmatch Result COMPATIBLE Unit Number [id number] Blood Component Type Leukocyte Reduced Red Cell Unit Division 00 Status of Unit TRANSFUSED Transfusion Status OK TO TRANSFUSE Crossmatch Result COMPATIBLE Unit Number [id number] Blood Component Type Leukocyte Reduced Red Cell Unit Division 00 Status of Unit TRANSFUSED Transfusion Status OK TO TRANSFUSE Crossmatch Result COMPATIBLE Unit Number [id number] Blood Component Type Leukocyte Reduced Red Cell Unit Division 00 Status of Unit TRANSFUSED Transfusion Status OK TO TRANSFUSE Crossmatch Result COMPATIBLE Unit Number [id number] Blood Component Type Leukocyte Reduced Red Cell Unit Division 00 Status of Unit TRANSFUSED Transfusion Status OK TO TRANSFUSE Crossmatch Result COMPATIBLE Normal [facility] Comment on above: Performed By: #### T PLT #### [facility] weeSPIN [facility] [place] [address] Meat Counter Worker: Evelio Vasquez MD Type and Screenon 07-28-2022 ABO and Rh group Nom (Bld) Blood group B Rh(D) positive Normal [facility] Comment on above: Order Comment: Trans fuse now? Y Number of units to transfuse now? 4 Comment on hold Transfuse now? N Result Comment: PERF ORMED BY: [facility] [address] [place] [address] PATHOLOGIST SCRUBBING MACHINE OPERATOR RADHA PETERSON M.D. US RENAL COMPLETEon 07-29-19 23 US RENAL COMPLETE EXAMINATION: RETROPERITONEAL ULTRASOUND OF THE KIDNEYS AND URINARY BLADDER 07/28/2022 COMPARISON: None HISTORY: ORDERING SYSTEM PROVIDED HISTORY: FITO TECHNOLOGIST PROVIDED HISTORY: FITO FINDINGS: Kidneys: The right kidney measures 9.5 x 4.3 x 4.7 cm in length and the left kidney measures 9 x 4.3 x 4.4 cm in length. There is 7 x 7 x 4 mm echogenic lesion within the superior pole of left kidney with posterior shadowing likely representing a nonobstructing renal stone. Kidneys demonstrate increased cortical echogenicity with cortical thinning. No evidence of hydronephrosis or intrarenal stones. Bladder: Unremarkable appearance of the bladder. Freeman catheter is within the urinary bladder. IMPRESSION: Atrophic appearance of bilateral kidneys which demonstrate cortical thinning with increased echogenicity. Findings are concerning for an underlying renal parenchymal disease. No hydronephrosis. Apparent 7 mm nonobstructing stone of superior pole of right kidney. Interpreted by: Saida Perry MD Signed by: Saida Perry MD 07/28/22 Final result Normal [facility] Atrophic appearance of bilateral kidneys which demonstrate cortical thinning with increased echogenicity. Findings are concerning for an underlying renal parenchymal disease. No hydronephrosis. Apparent 7 mm nonobstructing stone of superior pole of right kidney. [facility] EXAMINATION: RETROPERITONEAL ULTRASOUND OF THE KIDNEYS AND URINARY BLADDER 07/28/2022 COMPARISON: None HISTORY: ORDERING SYSTEM PROVIDED HISTORY: FITO TECHNOLOGIST PROVIDED HISTORY: FITO FINDINGS: Kidneys: The right kidney measures 9.5 x 4.3 x 4.7 cm in length and the left kidney measures 9 x 4.3 x 4.4 cm in length. There is 7 x 7 x 4 mm echogenic lesion within the superior pole of left kidney with posterior shadowing likely representing a nonobstructing renal stone. Kidneys demonstrate increased cortical echogenicity with cortical thinning. No evidence of hydronephrosis or intrarenal stones. Bladder: Unremarkable appearance of the bladder. Freeman catheter is within the urinary bladder. [facility] Saida Perry MD - 07/28/2022 EXAMINATION: RETROPERITONEAL ULTRASOUND OF THE KIDNEYS AND URINARY BLADDER 07/28/2022 COMPARISON: None HISTORY: ORDERING SYSTEM PROVIDED HISTORY: FITO TECHNOLOGIST PROVIDED HISTORY: FITO FINDINGS: Kidneys: The right kidney measures 9.5 x 4.3 x 4.7 cm in length and the left kidney measures 9 x 4.3 x 4.4 cm in length. There is 7 x 7 x 4 mm echogenic lesion within the superior pole of left kidney with posterior shadowing likely representing a nonobstructing renal stone. Kidneys demonstrate increased cortical echogenicity with cortical thinning. No evidence of hydronephrosis or intrarenal stones. Bladder: Unremarkable appearance of the bladder. Freeman catheter is within the urinary bladder. IMPRESSION: Atrophic appearance of bilateral kidneys which demonstrate cortical thinning with increased echogenicity. Findings are concerning for an underlying renal parenchymal disease. No hydronephrosis. Apparent 7 mm nonobstructing stone of superior pole of right kidney. [employer] Phone: Radiology Study observation (narrative) [employer] Phone: US RENAL COMPLETEOrdered By: Saida Perry on 07-28-2022 [facility] [employer] Phone: Urea nitrogen [Mass/volume] in Serum or PlasmaOrdered By: Saima Sanders on 07-28-2022 Urea nitrogen [Mass/Vol] 128 mg/dL 12-09 [facility] Urinalysis w/ Microon 2022 Bilirubin, SemiQt,Ur Negative Normal NEG [facility] Comment on above: Performed By: #### F KLLC, BNP, PHEP, CDP #### [facility] [address] [place] [address] [id number] Meat Counter Worker: Evelio Vasquez MD Blood, Urine Negative Normal NEG [facility] Comment on above: Performed By: #### F KLLC, BNP, PHEP, CDP #### [facility] [address] [place] [address] [id number] Meat Counter Worker: Evelio Vasquez MD Clarity (U) Clear Normal CLEAR [facility] Comment on above: Performed By: #### F KLLC, BNP, PHEP, CDP #### [facility] [address] [place] [address] [id number] Meat Counter Worker: Evelio Vasquez MD Color (U) Yellow Normal YEL [facility] Comment on above: Performed By: #### F KLLC, BNP, PHEP, CDP #### [facility] [address] [place] [address] [id number] Meat Counter Worker: Evelio Vasquez MD Glucose Ql (U) Negative Normal NEG [facility] Comment on above: Performed By: #### F KLLC, BNP, PHEP, CDP #### [facility] [address] [place] [address] [id number] Meat Counter Worker: Evelio Vasquez MD Ketones Ql (U) Negative Normal NEG [facility] Comment on above: Performed By: #### F KLLC, BNP, PHEP, CDP #### [facility] [address] [place] [address] [id number] Meat Counter Worker: Evelio Vasquez MD Leukocyte esterase Test strip Ql (U) SMALL Abnormal NEG [facility] Comment on above: Performed By: #### F KLLC, BNP, PHEP, CDP #### [facility] [address] [place] [address] [id number] Meat Counter Worker: Evelio Vasquez MD Nitrite,Ur Negative Normal NEG [facility] Comment on above: Performed By: #### F KLLC, BNP, PHEP, CDP #### [facility] [employer] [address] [place] [address] [phone] Meat Counter Worker: Evelio Vasquez MD PH,Ur 5.0 Normal 5.0-8.[address] [facility] Comment on above: Performed By: #### F KLLC, BNP, PHEP, CDP #### [facility] [address] [place] [address] [id number] Meat Counter Worker: Evelio Vasquez MD Protein Ql (U) Negative Normal NEG [facility] Comment on above: Performed By: #### F KLLC, BNP, PHEP, CDP #### [facility] [address] [place] [address] [id number] Meat Counter Worker: Evelio Vasquez MD Spec. [place],Ur 1.012 Normal 1.005-1.030 [facility] Comment on above: Performed By: #### F KLLC, BNP, PHEP, CDP #### [facility] [address] [place], [place] [id number] Meat Counter Worker: Evelio Vasquez MD Urine WBC's 0 TO 2 Normal 0-[address] [facility] Comment on above: Performed By: #### F KLLC, BNP, PHEP, CDP #### [facility] [address] [place], [place] [phone] Meat Counter Worker: Evelio Vasquez MD Urobilinogen,Ur Normal Normal NORM [facility] Comment on above: Performed By: #### F KLLC, BNP, PHEP, CDP #### [facility] [address] [place], [place] [phone] Meat Counter Worker: Evelio Vasquez MD Urinalysis with Microscopico n 07-28-2022 Bilirubin Urine Negative NEGATIVE [facility] Color, UA Yellow Yellow [facility] Glucose Auto test strip (U) [Mass/Vol] Negative NEGATIVE [facility] Interpretation and review of laboratory results Abnormal [facility] Ketones (U) [Mass/Vol] Negative NEGATIVE [facility] Leukocyte esterase Auto test strip Ql (U) SMALL Abnormal NEGATIVE [facility] Nitrite Auto test strip Ql (U) Negative NEGATIVE [facility] Protein (U) [Mass/Vol] 5.0 mg/dL 5.0 - 8.0 [facility] Protein (U) [Mass/Vol] Negative NEGATIVE [facility] Specific [place], UA 1.012 1.005 - 1.030 [facility] Turbidity UA Clear Clear [facility] Urine Hgb Negative NEGATIVE [facility] Urobilinogen, Urine Normal Normal [facility] WBC, UA 0 TO 2 [facility] WBC Auto (Bld) [#/Vol]Ordere d By: Saima Sanders on 07-28-2022 WBC (Bld) [#/Vol] 4.9 10*3/uL 4.1-10.5 [facility] XR CHEST PORTABLEon 07-29-19 XR CHEST PORTABLE EXAMINATION: ONE XRAY VIEW OF THE CHEST 07/28/2022 10:41 am COMPARISON: 12/24/2011 HISTORY: ORDERING SYSTEM PROVIDED HISTORY: syncope TECHNOLOGIST PROVIDED HISTORY: syncope FINDINGS: Bilateral central venous catheters have been removed. Heart size within normal limits without evidence of vascular congestion. Lungs remain clear. No new focal infiltrates are seen. No significant pleural effusions. Skin folds project over the right chest. There are clips in the upper abdomen. Mild degenerative changes of the spine with no acute osseous abnormality. IMPRESSION: No acute cardiopulmonary process Interpreted by: Italo Gallagher MD Signed by: Italo Gallagher MD 07/28/22 Final result Normal [facility] No acute cardiopulmo nary process [facility] RIS CONSOLIDATED EXAMINATION: ONE XRAY VIEW OF THE CHEST 07/28/2022 10:41 am COMPARISON: 12/24/2011 HISTORY: ORDERING SYSTEM PROVIDED HISTORY: syncope TECHNOLOGIST PROVIDED HISTORY: syncope FINDINGS: Bilateral central venous catheters have been removed. Heart size within normal limits without evidence of vascular congestion. Lungs remain clear. No new focal infiltrates are seen. No significant pleural effusions. Skin folds project over the right chest. There are clips in the upper abdomen. Mild degenerative changes of the spine with no acute osseous abnormality. [facility] Italo Gallagher MD - 07/28/2022 EXAMINATION: ONE XRAY VIEW OF THE CHEST 07/28/2022 10:41 am COMPARISON: 12/24/2011 HISTORY: ORDERING SYSTEM PROVIDED HISTORY: syncope TECHNOLOGIST PROVIDED HISTORY: syncope FINDINGS: Bilateral central venous catheters have been removed. Heart size within normal limits without evidence of vascular congestion. Lungs remain clear. No new focal infiltrates are seen. No significant pleural effusions. Skin folds project over the right chest. There are clips in the upper abdomen. Mild degenerative changes of the spine with no acute osseous abnormality. IMPRESSION: No acute cardiopulmonary process [employer] Phone: Radiology Study observation (narrative) [employer] Phone: XR CHEST PORTABLEOrdered By: Italo Gallagher on 07-28-2022 [facility] Phone: Auto Diffon 07-27-2022 Basophils/100 WBC (Bld) 0.6 % Normal 0.0-2.0 [facility] Comment on above: Order Comment: Order Added by Discern Expert. Performed By: #### 2 932807, 2426001, 3738113, 67765348, 98984559, 79690732, 6041623, 0426690, 5706371 ####[facility] [address] [place] [address] Basophils/Leukocytes Auto (Bld) [Pure # fraction] 0.0 E9/L Normal 0.0-0.2 [facility] Comment on above: Order Comment: Order Added by Discern Expert. Performed By: #### 2 947178, 0745841, 0169297, 22473125, 26090107, 16303093, 7673391, 7855658, 8108271 ####[facility] [address] [place] [address] Eosinophils/100 WBC (Bld) 1.8 % Normal 0.0-8.0 [facility] Comment on above: Order Comment: Order Added by Discern Expert. Performed By: #### 2 829462, 5678618, 7573090, 33388172, 62622980, 62222035, 2979280, 9386692, 4367854 ####[facility] [address] [place] [address] Eosinophils/Leukocyte s Auto (Bld) [Pure # fraction] 0.1 E9/L Normal 0.0-0.5 [facility] Comment on above: Order Comment: Order Added by Discern Expert. Performed By: #### 2 053615, 9105099, 9029587, 51350374, 22040322, 28679733, 9480861, 7182681, 1239023 ####[facility] [address] [place] [address] Lymphocytes/100 WBC (Bld) 12.7 % Low 14.0-50.0 [facility] Comment on above: Order Comment: Order Added by Discern Expert. Performed By: #### 2 309096, 2880937, 1707532, 38191249, 77284755, 79562164, 8319163, 4351998, 2257250 ####[address] [place] [address] Lymphocytes/Leukocyte s Auto (Bld) [Pure # fraction] 0.7 E9/L Low 1.0-4.0 [facility] Comment on above: Order Comment: Order Added by Discern Expert. Performed By: #### 2 482188, 7100264, 9495772, 40394479, 48880624, 26346033, 4681848, 9789509, 6203683 ####[address] [address] Monocytes/100 WBC (Bld) 4.5 % Normal 4.0-14.0 [facility] Comment on above: Order Comment: Order Added by Discern Expert. Performed By: #### 2 729288, 3643946, 7873565, 22099516, 48896217, 16842456, 6554433, 3959878, 8905977 ####[address] [place] [address] Monocytes/Leukocytes Auto (Bld) [Pure # fraction] 0.2 E9/L Normal 0.2-1.0 [facility] Comment on above: Order Comment: Order Added by Discern Expert. Performed By: #### 2 868179, 3395557, 2961065, 29702796, 52259324, 75934072, 1214196, 8310429, 9055032 ####[address] [place] [address] Neutrophils/100 WBC (Bld) 80.4 % High 36.0-75.0 [facility] Comment on above: Order Comment: Order Added by Discern Expert. Performed By: #### 2 464368, 8753645, 8300119, 60462792, 61352875, 42134487, 3059182, 1512250, 7881838 ####[facility] [address] [place] [address] Neutrophils/Leukocyte s Auto (Bld) [Pure # fraction] 4.3 E9/L Normal 2.0-7.5 [facility] Comment on above: Order Comment: Order Added by Discern Expert. Performed By: #### 2 761853, 9371017, 4658019, 78820342, 50967102, 72295401, 0419247, 8980649, 1056113 ####[facility] [address] [place] [address] BMPon 07-27-2022 Anion gap [Moles/Vol] 15 mmol/L Normal 6-16 [facility] Comment on above: Performed By: #### 2 845099, 6367518, 4569662, 03711027, 91748353, 32676357, 3645877, 5960744, 0251604 ####[facility] [address] [place] [address] Calcium [Mass/Vol] 7.1 mg/dL Low 8.9-11.1 [facility] Comment on above: Performed By: #### 2 517179, 5261639, 4402784, 04608281, 17210874, 79166967, 8049577, 5413957, 8505604 ####[facility] [address] [place] [address] Chloride [Moles/Vol] 112 mmol/L High 101-111 [facility] Comment on above: Performed By: #### 2 215470, 9045329, 4806831, 10215942, 31220969, 88372351, 6261940, 9530760, 2554151 ####[facility] [address] [place] [address] CO2 [Moles/Vol] 13 mmol/L Abnormal 21-31 [facility] Comment on above: Result Comment: Crit ical Result verified by repeat analysis\Critical Result S_CO2:13.0) Called to [facility] AT ER by JONO MAZARIEGOS and read back for confirmation at 07/27/2022 13:28:5 Performed By: #### 2 212870, 5061206, 7234890, 24333818, 47528081, 92994430, 4132867, 8519524, 9315761 ####[facility] [address] [place] [address] Creatinine [Mass/Vol] 8.4 mg/dL Abnormal 0.5-1.3 [facility] Comment on above: Result Comment: Resu lts verified by repeat analysis\Critical Result S_CREA:8.40 Called to [facility] ER by JONO MAZARIEGOS And Read Back For Confirmation at: 07/27/2022 13:28:54 Performed By: #### 2 672735, 3775201, 6742064, 29772184, 59890931, 56089735, 7911896, 7427955, 8743399 ####[facility] [address] [place] [address] Glucose [Mass/Vol] 122 mg/dL Normal 55-199 [facility] Comment on above: Result Comment: If t his glucose result represents a fasting glucose, interpretation should refer to the following reference range: 55-99 mg/dL Performed By: #### 2 772809, 8374873, 3023001, 38683057, 96751742, 17739201, 3807967, 4938886, 7056880 ####[facility] [address] [place] [address] Potassium [Moles/Vol] 3.4 mmol/L Low 3.5-5.3 [facility] Comment on above: Performed By: #### 2 354739, 7387783, 2419538, 08769886, 91311241, 19514876, 4425754, 8868417, 5942449 ####[facility] [address] [place] [address] Sodium [Moles/Vol] 137 mmol/L Normal 135-145 [facility] Comment on above: Performed By: #### 2 341721, 3667469, 5968100, 14211120, 77424135, 78756305, 8222211, 8514826, 0940273 ####[facility] [address] [place] [address] Urea nitrogen [Mass/Vol] 118 mg/dL Abnormal 5-21 [facility] Comment on above: Result Comment: Resu lt verified by dilution Performed By: #### 2 616229, 0382305, 2993880, 06724570, 83384260, 04613067, 8570559, 4825826, 5276583 ####[facility] [address] [place] [address] Urea nitrogen/Creatinine [Mass ratio] 14 No Units Normal 10-20 [facility] Comment on above: Performed By: #### 2 373083, 7229217, 0101844, 04389119, 19673163, 14503395, 4802152, 2747842, 0499711 ####[facility] [address] [place] [address] Blood Gas Art, with Lytes, G sadia, [place] 07-27-2022 a/A Ratio Art 93.90 % Normal >=0.80 [facility] Comment on above: Performed By: #### 4 [id number] #### [facility] [address] [place] [address] AaDO2 Art 7.0 mmHg Normal 5.0-15.0 [facility] Comment on above: Performed By: #### 4 98097945 #### [facility] [address] [place] [address] Allens Test Positive Normal [facility] Comment on above: Performed By: #### 4 20989213 #### [facility] [address] [place] [address] Base Excess Arterial -15.0 mmol/L Low -2.0-2.0 [facility] Comment on above: Performed By: #### 4 84925687 #### [facility] [address] [place] [address] cCa2+ Art 4.14 mg/dL Low 4.40-5.30 [facility] Comment on above: Performed By: #### 4 [id number] #### [facility] [address] [place] [address] cCl- Art 116.0 mmol/L High 101.0-111.0 [facility] Comment on above: Performed By: #### 4 92417153 #### [facility] [address] [place] [address] cGlu Art 158 mg/dL Normal 55-199 [facility] Comment on above: Performed By: #### 4 86969017 #### [facility] [address] [place] [address] cK+ Art 3.7 mmol/L Normal 3.5-5.3 [facility] Comment on above: Performed By: #### 4 98036453 #### [facility] [address] [place] [address] cLac Art 1.0 mmol/L Normal .5-2.2 [facility] Comment on above: Performed By: #### 4 24797957 #### [facility] [address] [place] [address] deputy bailiff+ Art 142.0 mmol/L Normal 135.0-145.0 [facility] Comment on above: Performed By: #### 4 75208143 #### [facility] [address] [place] [address] Device ROOM AIR Invalid Interpretation Code [facility] Comment on above: Performed By: #### 4 [id number] #### [facility] [address] [place] [address] Drawn by [employer] Invalid Interpretation Code [facility] Comment on above: Performed By: #### 4 35838531 #### [facility] [address] [place] [address] FCOHb Art <0.5 Low 1.5-4.9 [facility] Comment on above: Result Comment: Refe rence range Nonsmoker <1.5% Smoker <5.0% Heavy Smoker <9.0% Performed By: #### 4 02272347 #### [facility] [address] [place] [address] FIO2 BG 21 Invalid Interpretation Code [facility] Comment on above: Performed By: #### 4 15271231 #### [facility] [address] [place] [address] FMetHb Art 2.3 % High 0.0-1.9 [facility] Comment on above: Performed By: #### 4 44954242 #### [facility] [address] [place] [address] FO2Hb Art 94.8 % Normal 93.0-100.0 [facility] Comment on above: Performed By: #### 4 94362533 #### [facility] [address] [place] [address] HCO3 (Bld) [Moles/Vol] 12.6 mmol/L Low 22.0-26.0 [facility] Comment on above: Performed By: #### 4 08606930 #### [facility] [address] [place] [address] Hemoglobin (Bld) [Mass/Vol] 6.2 g/dL Abnormal 12.0-17.0 [facility] Comment on above: Result Comment: Resu lts Called To ELVER SUGGS MD By KAYLIE DAVIDSON RRT And Read Back For Confirmation On 07/27/2022 16:17:55 EDT. Performed By: #### 4 [id number] #### [facility] [address] [place] [address] Oxygen saturation in Blood 96.9 % Normal 95.0-100.0 [facility] Comment on above: Performed By: #### 4 87014654 #### [facility] [address] [place] [address] P CO2 Arterial 27.8 mmHg Low 35.0-45.0 [facility] Comment on above: Performed By: #### 4 97072499 #### [facility] [address] P O2 Arterial 106.0 mmHg High 80.0-100.0 [facility] Comment on above: Performed By: #### 4 03254756 #### [facility] [address] pH Arterial 7.221 Abnormal 7.350-7.450 [facility] Comment on above: Result Comment: Resu lts Called To ELVER SUGGS MD By KAYLIE DAVIDSON RRT And Read Back For Confirmation On 07/27/2022 16:17:55 EDT. Performed By: #### 4 [id number] #### [facility] [address] [place] [address] Sample Site L Radial Normal [facility] Comment on above: Performed By: #### 4 01372621 #### [facility] [address] [place] [address] Sample Type Arterial Draw Normal [facility] Comment on above: Performed By: #### 4 50382024 #### [facility] [address] CBC w/ Auto Diffon 3 Erythrocyte distribution width (RBC) [Ratio] 13.5 % Normal 10.9-14.2 [facility] Comment on above: Performed By: #### 2 636102, 2317458, 0362798, 08228539, 56410425, 85218207, 7425771, 5381853, 2624134 ####[facility] [address] [place] [address] Hematocrit (Bld) [Volume fraction] 21.0 % Low 37.7-49.0 [facility] Comment on above: Performed By: #### 2 565042, 2349207, 9282271, 68681604, 28394718, 28099737, 4405517, 2033864, 3581750 ####[facility] [address] [place] [address] Hemoglobin (Bld) [Mass/Vol] 7.0 g/dL Low 13.5-17.5 [facility] Comment on above: Performed By: #### 2 686759, 3055275, 9307805, 24149506, 32188791, 48642071, 5526709, 5765693, 1500000 ####[facility] [address] [place] [address] MCH (RBC) [Entitic mass] 30.5 pg Normal 27.0-34.0 [facility] Comment on above: Performed By: #### 2 075467, 8799587, 1768559, 09573798, 46704209, 57124357, 1744282, 1652898, 2001433 ####[address] [address] MCHC (RBC) [Mass/Vol] 33.4 g/dL Normal 31.4-36.0 [facility] Comment on above: Performed By: #### 2 572959, 1015828, 2153318, 48483971, 07241520, 89756740, 5683909, 2302875, 9165424 ####[address] [address] MCV (RBC) [Entitic vol] 91.4 fL Normal 80.0-100.0 [facility] Comment on above: Performed By: #### 2 425046, 3123000, 7704715, 52158832, 41361305, 41194224, 0144960, 8702919, 6516438 ####[address] [place] [address] Platelet mean volume (Bld) [Entitic vol] 8.3 fL Normal 6.4-10.8 [facility] Comment on above: Performed By: #### 2 319208, 5041589, 1838746, 33448743, 15272582, 30889148, 0306651, 7737011, 6829669 ####[address] [place] [address] Platelets (Bld) [#/Vol] 142.0 E9/L Low 150.0-500.0 [facility] Comment on above: Performed By: #### 2 253345, 2254357, 8100913, 77357312, 81114786, 23751349, 4388150, 8037731, 2775492 ####[facility] [address] [place] [address] RBC (Bld) [#/Vol] 2.3 E12/L Low 4.3-5.9 [facility] Comment on above: Performed By: #### 2 838127, 0134747, 8671571, 01006734, 95857729, 20637378, 5244667, 7235742, 6642904 ####[facility] [address] [place] [address] WBC corrected for nucl RBC Auto (Bld) [#/Vol] 5.4 E9/L Normal 4.0-11.0 [facility] Comment on above: Performed By: #### 2 665052, 0561158, 9479636, 42166636, 54308259, 95573824, 9111827, 2349918, 2623101 ####[facility] [address] [place] [address] CT Head or Brain w/o Contras ton 07-27-2022 CT Head or Brain w/o Contrast Exam Date/Time: 07/27/2022 13:07 EDT Reason for Exam: Syncope Report Impression: No acute findings. CT brain without intravenous contrast medium. History: Syncope. Fell forward. Hit head.. Technical factors: CT imaging of the brain was obtained and formatted as 5 mm contiguous axial images. 2.5 mm contiguous axial images were obtained through the osseous structures. Sagittal and coronal reconstruction obtained during postprocessing. Comparison: None.. Findings: Extra-axial spaces: Normal. Intracranial hemorrhage: None. Ventricular system: Without anomaly Basal Cisterns: Normal. Cerebral Parenchyma: Without anomaly Midline Shift: None. Cerebellum: Normal. Paranasal sinuses and mastoid air cells: Normal. Visualized Orbits: Normal. All CT scans at this facility use dose modulation, iterative reconstruction, and/or weight based dosing when appropriate to reduce radiation dose to as low as reasonably achievable. Report Ordering Provider: Elver Suggs FINAL REPORT Dictated: 07/27/2022 1:27 pm Ivan Tapia MD Signed (Electronic Signature): 07/27/2022 1:27 pm Signed by: Ivan Tapia MD Transcribed by: TRUMAN Technologist: Normal [facility] Capillary Glucose POCon 07-16 Glucose [Mass/Vol] 115 mg/dL High 55-99 [facility] Comment on above: Result Comment: Lyndsey arroyo RN/ Performed By: #### 2 [id number] ####[facility] [address] [place] [address] Consent for Treatmenton 07-16 Consent for Treatment [id number]: 127 Normal [facility] ED Clinical Summaryon 2022 ED Clinical Summary (Inserted Image. Jaclyn ble to display) [address] [address] ED Clinical Summary Person Information Name: MELE SKY/[facility] Age: 66 Years : 1955 Sex: Male Language: Ukrainian PCP: IVAN LLOYD DO Marital Status: Visit Id: Visit Reason: Constipation; Nausea; Syncope/Near syncope; NAUSEA, CONSTIPATION Speciality: Acuity: 2 Enc Type: Emergency Med Service: Emergency Arrival: 07/27/2022 12:02:30 Discharge: 07/27/2022 19:25:53 LOS: 000 07:23 Checkin: 07/27/2022 12:02:30 Checkout: 07/27/2022 19:25:53 Dispo Type: Short-Term Hosp as IP EVENTS: Event Name Event Status Request Date/Time Start Date/Time Complete Date/Time Arrive Complete 07/27/2022 12:02:30 07/27/2022 12:02:30 07/27/2022 12:02:30 Document Home Meds Request 07/27/2022 12:02:30 Triage Complete 07/27/2022 12:02:30 07/27/2022 12:16:01 07/27/2022 12:16:01 Bed Assign Complete 07/27/2022 12:05:51 07/27/2022 12:05:51 07/27/2022 12:05:51 Dr Exam Complete 07/27/2022 12:05:51 07/27/2022 12:10:45 07/27/2022 12:10:45 RN Exam Complete 07/27/2022 12:05:51 07/27/2022 13:11:53 07/27/2022 13:11:53 Registration Complete 07/27/2022 12:10:45 07/27/2022 12:14:42 07/27/2022 12:14:42 EKG Complete 07/27/2022 12:11:45 07/27/2022 12:18:28 Reg Complete Request 07/27/2022 12:14:42 Pending Labs Request 07/27/2022 12:31:31 Lab Complete 07/27/2022 12:31:31 07/27/2022 13:29:51 Patient Care Request 07/27/2022 12:31:31 RT Request 07/27/2022 12:31:31 CT Complete 07/27/2022 12:31:31 07/27/2022 12:52:12 07/27/2022 13:07:44 X-Ray Complete 07/27/2022 12:31:31 07/27/2022 13:15:51 Pending Labs Complete 07/27/2022 12:38:45 07/27/2022 12:38:45 07/27/2022 12:38:45 Pending Labs Complete 07/27/2022 12:47:35 07/27/2022 12:47:35 07/27/2022 13:29:50 Lab Complete 07/27/2022 12:47:35 07/27/2022 12:47:35 07/27/2022 13:29:50 Meds Admin Complete 07/27/2022 12:48:15 07/27/2022 13:20:57 Pending Labs Complete 07/27/2022 12:56:54 07/27/2022 12:56:54 07/27/2022 12:57:03 Lab Complete 07/27/2022 12:56:54 07/27/2022 12:56:54 07/27/2022 12:57:03 Wet Read Request 07/27/2022 13:15:51 Pending Labs Complete 07/27/2022 13:34:17 07/27/2022 13:57:51 Consult Request 07/27/2022 13:42:51 Hospitalist Consult Request 07/27/2022 13:42:51 Patient Care Request 07/27/2022 14:52:13 Transfer Complete 07/27/2022 14:52:13 07/27/2022 19:26:04 07/27/2022 19:26:04 Pending Labs Complete 07/27/2022 15:50:02 07/27/2022 15:50:02 07/27/2022 15:50:03 Pending Labs Complete 07/27/2022 16:07:21 07/27/2022 16:17:58 RT Tx/ABG Complete 07/27/2022 16:07:21 07/27/2022 16:44:25 07/27/2022 16:44:25 Meds Admin Complete 07/27/2022 16:18:35 07/27/2022 16:33:43 Discharge Complete 07/27/2022 19:26:04 07/27/2022 19:26:04 07/27/2022 19:26:04 ADDRESS: [facility] [place] [facility] [id number] [facility] DOC NOTES: MEDICAL INFORMATION: Prescriptions Given: PATIENT EDUCATION INFORMATION: Instructions: Follow up: DIAGNOSIS: Normal [facility] ED Note-Physicianon 07-28-19 ED Note-Physician Basic Information Time Seen: Elver Suggs M.D. 07/27/2022 12:10 Chief Complaint nausea and constipation no BM x 3 days with L rib pain. gastric bypass in 1998, hx of necrotic bowel in 2011. syncopal episode earlier today, no LOC. pt. appears pale, states he has chronic anemia. denies anticoags. History of Present Illness The patient is a 66-year-old male who presented to the emergency room with his for syncope. The patient states he has been feeling nauseated today. He came out of the bedroom and going in the hallway when he passed out. The patient states that he felt sweaty, his states he turned pale. The patient states he felt his heart going fast and the next thing he passed out. The states that he had he has had on the doorway. The patient states he has been feeling nauseated today. He woke up in the morning feeling nauseated. He states he has been dealing with constipation. After the syncopal episode he went to the bathroom and had a small bowel movement which was hard. The patient denies any black or bloody stool. The patient denies any headache currently. Denies any neck pain. Denies any chest pain, denies any shortness of breath. He denies any dizziness. He denies any abdominal pain. He states he has some discomfort earlier on the left side that has completely resolved now. The patient denies any urinary symptoms. He denies any other associated symptoms. Review of Systems Additional ROS info: Except as noted in the above Review of Systems and in the History of Present Illness all other systems have been reviewed and are negative or noncontributory. Physical Exam Vitals & Measurements T: 36.4 ?C(Oral) HR: 77(Peripheral) RR: 16 BP: 134/87 BP: 76/55(Standing) BP: 131/79(Supine) SpO2: 98% HT: 183 cm WT: 84.4 kg BMI: 25.2 General: alert, no acute distress Skin: warm, dry Head: no trauma, normocephalic Neck: Trachea midline, no tenderness, supple Eye: normal conjunctiva, sclera clear Cardiovascular: regular rate and rhythm Respiratory: Lungs CTA, respirations non labored, breath sounds equal Gastrointestinal: soft, non distended, no tenderness, no guarding, rectal exam revealed dark green stool in the rectal vault, soft that are positive for occult blood. Extremities: no deformity, no trauma Neurological: Alert and oriented, motor strength equal & normal bilaterally, sensation equal & normal bilaterally, speech normal, no focal neuro deficits Psychiatric: cooperative, affect appropriate for age, Medical Decision Making MEDICAL DECISION MAKING Number and Complexity of Problems Differential Diagnosis: [] [facility] Data External documents reviewed: [] My EKG interpretation: [] My CT interpretation: [] My X-ray interpretation: [] My Ultrasound interpretation: [] Decision rules/scores evaluated: [] Discussed with: Hospitalist, Dr Seay, Treatment and Disposition ED Course: The patient presented with syncopal episode. He reports having constipation. He denies any abdominal pain. The EKG shows no acute ischemic changes. Blood work reviewed. The patient has severe anemia. His hemoglobin today is 7.0. The patient showed me blood work that he has done with his primary doctor at [facility] and his hemoglobin in February 2022 was 11.5. The BUN and creatinine are increased. BUN is 118 and creatinine 8.4. His CO2 is 13. From blood work in February at [facility] his BUN was 40 and creatinine was 3.2. The chest x-ray shows no acute cardiopulmonary disease. The CT of the brain shows no acute intracranial process. The patient was given 1 L of normal saline. He was given 1 amp of sodium bicarb. His blood gas showed pH of 7.221, PCO2 of 27.8 and PO2 of 106. The patient does not appear to be on any acute distress at all. The orthostatic vital signs were done and the patient's blood pressure dropped from 135 down to 87 systolic. Rectal exam revealed dark green stool in the rectal vault that are positive for occult blood. Initially the case was discussed with the hospitalist who recommends that we discussed the case with the nephrology before we admit the patient to our hospital. I discussed the case with who states that they cannot provide any consult if the patient requires dialysis today. And that is up to the hospitalist if they are comfortable to admit him here. From the previous conversation with the hospitalist they have stated that not comfortable if nephrology is not in consult. At this time the patient feels comfortable going to [facility]. I discussed the case with Dr. Jeff who accepted patient. The patient is transferred via [facility] at stable condition. Shared decision making: [] Code status: [] Critical Care Time: 40 minutes billable from other separate procedures Assessment/Plan 1. Syncope (R55: Syncope and collapse) 2. Orthostatic hypotension (I95.1: Orthostatic hypotension) 3. Severe anemia (D64.9: Anemia, unspe (more content not included)... Normal [facility] Comment on above: Result Comment: Elec tronically Signed By: Elver Suggs M.D.\.br\Date and Time Signed: 07/27/22 20:06 EDT ED Patient Education Noteon 07-27-2022 ED Patient Education Note Normal [facility] ED Patient Summaryon 023 ED Patient Summary (Inserted Image. Jaclyn ble to display) [place] [id number] Patient Discharge Instructions Person Information Name: MELE SKY Age: 66 Years Arrival Date: 07/27/2022 12:02:30 Discharge Diagnosis: Primary Care Physician: IVAN LLOYD DO Provider Information Primary Provider: Elver Suggs M.D. Advanced Ems Helicopter Pilot:None The exam and treatment you received in the Emergency Department were for an urgent problem and are not intended as complete care. It is important that you follow up with a doctor, nurse practitioner, or physician?s aquatics assistant department head for ongoing care. If your symptoms become worse or you do not improve as expected and you are unable to reach your usual health care provider, you should return to the Emergency Department. We are available 24 hours a day. MELE SKY has been given the following list of patient education materials, prescriptions and follow-up instructions: Follow-up Instructions: In the event that this physician does not participate in your insurance network, please consult with your insurance company to find a nearby participating provider. Patient Education Materials: A MESSAGE TO ALL PATIENTS REGARDING OPIOIDS PRESCRIPTION OPIOIDS: WHAT YOU NEED TO KNOW Prescription opioids can be used to help relieve ephaxpvo-ns-drxvhm pain and are often prescribed following a surgery or injury, or for certain health conditions. These medications can be an important part of the treatment but also come with serious risks. It is important to work with your healthcare provider to make sure you are getting the safest, most effective care. WHAT ARE THE RISKS AND SIDE EFFECTS OF OPIOID USE? Prescription opioids carry serious risks of addiction and overdose, especially with prolonged use. An opioid overdose, often marked by slowed breathing, can cause sudden . The use of prescription opioids can have a number of side effects as well, even when taken as directed: ? Tolerance?meaning you might need to take more of the medication for the same pain relief ? Physical dependence?meaning you have symptoms of withdrawal when a medication is stopped ? Increased sensitivity to pain ? Constipation ? Nausea, vomiting, and dry mouth ? Sleepiness and dizziness ? Confusion ? Depression ? Low levels of testosterone that can result in lower sex drive, energy, and strength ? Itching and sweating RISKS ARE GREATER WITH: ? History of drug misuse, substance use disorder, or overdose ? Mental health conditions (such as depression or anxiety) ? Sleep apnea ? Older age (65 years and older) ? Avoid alcohol while taking prescription opioids. Also, unless specifically advised by your health care provider, medications to avoid include: ? Benzodiazepines (such as Xanax or Valium) ? Muscle relaxants (such as Soma or Flexeril) ? Hypnotics (such as Ambien or Lunesta) ? Other prescription opioids KNOW YOUR OPTIONS Talk to your health care provider about ways to manage your pain that don?t involve prescription opioids. Some of these options may actually work better and have fewer risks and side effects. Options may include: ? Pain relievers such as acetaminophen, ibuprofen, and naproxen ? Some medication that are also used for depression or seizures ? Physical therapy and exercise ? Cognitive behavioral therapy, a psychological, goal-directed approach, in which patients learn how to modify physical, behavioral, and emotional triggers of pain and stress. IF YOU ARE PRESCRIBED OPIOIDS FOR PAIN: ? Never take opioids in greater amounts or more often than prescribed. ? Follow up with your primary health care provider. o Work together to create a plan on how to manage your pain. o Talk about ways to help manage your pain that don?t involve prescription opioids. o Talk about any and all concerns and side effects. ? Help prevent misuse and abuse o Never sell or share prescription opioids. o Never use another person?s prescription opioids. ? Store prescription opioids in a secure place and out of reach of others (this may include visitors, children, friends, and family). ? Safely dispose of unused prescription opioids: Find your community drug take-back program or your pharmacy mail-back program, or flush them down the toilet, following guidance from the Food and Drug Administration (www.fda.gov/Drugs/Resou rcesForYou). ? Visit www.cdc.gov/drugoverdose to learn about the risks of opioids abuse and overdose. ? If you believe you may be struggling with addiction, tell your health career resource technician and ask for guidance or call [facility]?S National Helpline at 2-664-616-QUQG. v Source: US Department of Health and Human Services/Center for Disease Control & Prevention [facility] Medications Given: Medication Dose Route Sodium Chloride 0.9% intravenous (more content not included)... Normal [facility] Hep Func Panelon 07-27-2022 Bilirubin.indirect [Mass or moles/Vol] UTC Abnormal 0.1-0.9 [facility] Comment on above: Result Comment: Resu lt verified by Discern Rule. Performed result UTC (Unable to Calculate) was sent as an Alpha code due the inability to calculate a valid numeric value. Performed By: #### 2 987187, 5622402, 1094939, 79890149, 26813097, 83816474, 1714279, 5440335, 3381296 ####[facility] [address] [place] [address] Albumin [Mass/Vol] 3.2 g/dL Low 3.3-5.0 [facility] Comment on above: Performed By: #### 2 494382, 3311587, 2947515, 02336231, 70042862, 12863803, 2074642, 5146433, 5669911 ####[facility] [address] [place] [address] Albumin/Globulin (S) [Mass conc ratio] 1.4 Normal 1.1-2.2 [facility] Comment on above: Performed By: #### 2 964219, 8457840, 3339780, 80242027, 89576803, 91824905, 4476995, 1058930, 4974217 ####[facility] [address] [place] [address] ALP [Catalytic activity/Vol] 37 Int._Unit/L Normal 21-98 [facility] Comment on above: Performed By: #### 2 429280, 9656251, 3312073, 11328999, 09299225, 89957225, 3178483, 6461675, 3576024 ####[facility] [address] [place] [address] ALT No additional P-5'-P [Catalytic activity/Vol] 15 Int._Unit/L Normal 6-46 [facility] Comment on above: Performed By: #### 2 160409, 4117131, 5872867, 35254863, 13826822, 38074910, 4813728, 1198207, 7195767 ####[place] [address] [place] [address] AST [Catalytic activity/Vol] 18 Int._Unit/L Normal 5-43 [facility] Comment on above: Performed By: #### 2 357868, 8172653, 7787529, 47096367, 35136585, 34499980, 3110823, 3692306, 6400586 ####[place] [address] [place] [address] Bilirubin [Mass/Vol] 0.6 mg/dL Normal 0.0-1.1 [facility] Comment on above: Performed By: #### 2 412216, 2975272, 3053501, 65095575, 35439843, 69773500, 4861366, 6499081, 5393625 ####[place] [address] [place] [address] Globulin (S) [Mass/Vol] 2.3 g/dL Normal 1.4-4.0 [facility] Comment on above: Performed By: #### 2 844908, 5846816, 6344245, 04765067, 46749496, 60436749, 5245463, 4629056, 8009311 ####[place] [address] [place] [address] Protein [Mass/Vol] 5.5 g/dL Low 6.0-7.8 [facility] Comment on above: Performed By: #### 2 287054, 1812642, 1301595, 79983588, 89595013, 10871416, 4422898, 7669468, 2882280 ####[facility] [address] [place] [address] Bilirubin.direct [Mass/Vol] mg/dL Normal 0.1-0.4 [facility] Comment on above: Performed By: #### 2 527940, 6955915, 0692114, 15552814, 35486865, 02551439, 5466425, 1554592, 8856099 ####[facility] [address] [place] [address] Lipase Levelon 07-27-2022 Lipase [Catalytic activity/Vol] 83 U/L High 13-58 [facility] Comment on above: Performed By: #### 2 769277, 5174842, 8117982, 34780147, 46130966, 59006654, 0324925, 7514498, 0979628 ####[facility] [address] [place] [address] Magnesiumon 07-27-2022 Magnesium [Mass/Vol] 2.3 mg/dL Normal 1.3-2.4 [facility] Comment on above: Performed By: #### 2 735886, 8685399, 8071452, 33954630, 91801685, 38711565, 2574547, 2036649, 7269553 ####[facility] [address] [place] [address] Monitor Recordon 07-27-2022 Monitor Record [id number]#[id number]: 127 Normal [facility] Monitor Record [id number]#[id number]: 127 Normal [facility] PT & PTTon 07-27-2022 aPTT Coag (PPP) [Time] 25.5 second(s) Normal 25.1-36.5 [facility] Comment on above: Result Comment: Para meter 15 days - 4 weeks 1 - 5 months 6 - 11 months 1 - 5 years 6 - 10 years 11 - 17 years PTT Mean: 35.4 (27.6-45.6) Mean: 33.5 (24.8-40.7) Mean: 32.4 (25.1-40.7) Mean: 31.6 (24.0-39.2) Mean: 31.6 (26.9-38.7) Mean: 31.0 (24.6-38.4) Pediatric Reference ranges were obtained from a study by keri Jenkins al. prepared from 1437 samples obtained at 7 different centers using the same coagulation reagent and instrumentation as [facility]. Currently there are no coagulation studies available worldwide for children to 14 days, and no normal ranges. Heparin therapeutic range (represented by Anti-Factor Xa activity of 0.2 - 0.4 U/mL) corresponds to PTT of 56.6 - 109.0 sec. Performed By: #### 2 188511, 5571673, 7029378, 93222019, 95498573, 89743904, 0696691, 8889453, 9201188 ####[facility] [address] [place] [address] INR Coag (PPP) [Relative time] 1.0 {INR} Invalid Interpretation Code [facility] Comment on above: Result Comment: INR results are specifically intended to assess patients stabilized on long-term Anticoagulation therapy suggested INR?s ?Less Intensive Anticoagulation? 2.0 ? 3.0 Conventional Range 3.0 ? 4.5 Performed By: #### 2 086763, 6029814, 9658283, 43989886, 73446198, 59038302, 2060991, 6006112, 8828781 ####[facility] [address] [place] [address] PT Coag (PPP) [Time] 11.6 second(s) Normal 9.4-12.5 [facility] Comment on above: Result Comment: 15 d ays - 4 weeks 1 - 5 months 6 -11 months 1 ? 5 years 6 ? 10 years 11 -17 years Mean: 11.2 (9.5 ? 12.6) Mean: 11.0 (9.7 ? 12.8) Mean: 11.0 (9.8 ? 13.0) Mean: 11.3 (9.9 ? 13.4) Mean: 11.7 (10.0 ? 14.6) Mean: 11.8 (10.0 - 14.1) Pediatric Reference ranges were obtained from a study by Thor Jameson et al. prepared from 1437 samples obtained at 7 different centers using the same coagulation reagent and instrumentation as [facility]. Currently there are no coagulation studies available worldwide for children to 14 days, and no normal ranges. Performed By: #### 2 944638, 1590054, 0623630, 14700055, 25990050, 69747850, 1588436, 5905643, 6977116 ####[facility] [address] [place] [address] Stl Oclt Bldon 07-27-2022 Occult Bld Stl Positive Abnormal Negative [facility] Comment on above: Performed By: #### 2 8162772 ####[place] [address] [place] [address] Transfer Documentson 023 Transfer Documents [id number]#[id number] :127 Normal [facility] Troponin 0 Hr.on 07-27-2022 Troponin I.cardiac [Mass/Vol] 10.30 pg/mL Low 15.90-38.40 [facility] Comment on above: Result Comment: The 95% CI (Confidence Interval) PPV (Positive Predictive Value) for myocardial infarction in females is 38 pg/mL, in males 51 pg/mL. The results should be used in conjunction with clinical conditions of myocardial infarction. (Access High Sensitivity Troponin I Instructions For Use, Marixa Le[employer], December 2017) Performed By: #### 2 227859, 7562189, 2027305, 33138848, 43773991, 15239599, 4539815, 9126892, 2985016 ####[facility] [address] [place] [address] Troponin 3 Hr.on 07-27-2022 Troponin I.cardiac [Mass/Vol] 11.70 pg/mL Low 15.90-38.40 [facility] Comment on above: Result Comment: The 95% CI (Confidence Interval) PPV (Positive Predictive Value) for myocardial infarction in females is 38 pg/mL, in males 51 pg/mL. The results should be used in conjunction with clinical conditions of myocardial infarction. (Access High Sensitivity Troponin I Instructions For Use, [employer], December 2017) Performed By: #### 1 [id number] ####[facility] [address] [place] [address] Troponin 6 Hr.on 07-27-2022 Troponin I.cardiac [Mass/Vol] 12.50 pg/mL Low 15.90-38.40 [facility] Comment on above: Result Comment: The 95% CI (Confidence Interval) PPV (Positive Predictive Value) for myocardial infarction in females is 38 pg/mL, in males 51 pg/mL. The results should be used in conjunction with clinical conditions of myocardial infarction. ([employer] High Sensitivity Troponin I Instructions For Use, [employer], December 2017) Performed By: #### 1 [id number] ####[facility] [address] [place] [address] XR Abdomen Series w/ Chest 1 Viewon 07-27-2022 XR Abdomen Series w/ Chest 1 View Exam Date/Time: 07/27/2022 13:15 EDT Reason for Exam: Constipation Report Abdominal series with chest radiograph. FINDINGS: Chest radiograph shows osseous structures intact. Cardiopericardial silhouette normal. Pulmonary vasculature normal. Lungs clear. No free air beneath the diaphragms. Abdomen and pelvis images show multiple surgical clips at gastroesophageal junction and left upper quadrant. Gas and stool in colon. No diffuse small bowel dilatation. Prominent, nonspecific intraluminal air identified within the epigastrium, with no mass effect. Multiple punctate calcifications measuring up to 3 mm overlying upper, mid and lower pole left kidney. Degenerative change, lumbar spine. IMPRESSION: No acute cardiopulmonary disease. Right renal calculi. Postsurgical changes left upper quadrant. There are described above in epigastrium and represent air within overlapping small bowel loops. Clinical correlation required. Ordering Provider: Elver Suggs FINAL REPORT Dictated: 07/27/2022 1:33 pm Ivan Tapia MD Signed (Electronic Signature): 07/27/2022 1:33 pm Signed by: Ivan Tapia MD Transcribed by: TRUMAN Technologist: LES Technical Comments Radiation Dose: Ka,r in mGy = na DAP = na Normal [facility] eGFRon 07-27-2022 GFR/1.73 sq M.predicted among blacks MDRD (S/P/Bld) [Vol rate/Area] 8 mL/min/1.73 m2 Low >=59 [facility] Comment on above: Order Comment: Order added by Discern Expert. Result Comment: eGFR is race adjusted. AA=. Performed By: #### 2 512101, 6998364, 1393360, 47082873, 44406868, 49607040, 9585976, 6700582, 3818413 ####[facility] [address] [place] [address] GFR/1.73 sq M.predicted among non-blacks MDRD (S/P/Bld) [Vol rate/Area] 6 mL/min/1.73 m2 Low >=59 [facility] Comment on above: Order Comment: Order added by Discern Expert. Result Comment: Jewel [employer] Rough Opener nereida kidney disease could be indicated at eGFR's of less than 60 mL/min/1.73m2. Kidney failure is indicated at less than 15 mL/min/1.73m2. Performed By: #### 2 495114, 6645231, 5764702, 97308664, 87327380, 18269270, 5873845, 7658436, 9992444 ####[facility] [address] [place] [address] IRON AND TIBCon 03-21-2022 % SATURATION 36.6 % Normal [facility] Comment on above: Performed By: #### B 12FOL, FETIBC #### [facility] [address], [place] [address] Dr. Flako Candelaria Iron [Mass/Vol] 75.0 ug/dL Normal 65.0-175.0 [facility] Comment on above: Performed By: #### B 12FOL, FETIBC #### [facility] [address], [place] [address] Dr. Flako Candelaria TIBC DIRECT 205.0 ug/dL Critically low 250.0-450.0 [facility] Comment on above: Performed By: #### B 12FOCarlos FETIBC #### [facility] [address] [place] [address] [address] Flako Candelaria US KIDNEYS BLADDERon 022 US KIDNEYS BLADDER EXAMINATION: US KIDN EYS BLADDER HISTORY: Chronic kidney disease stage 4 COMPARISON: No relevant comparison available. TECHNIQUE: Ultrasound examination was performed of the bladder. FINDINGS: Right Kidney: Small in size normal in contour with diffuse increase in echotexture. Nonobstructing nephrolithiasis measuring up to 9 mm. No solid mass or hydronephrosis. The cortex measures 1 cm Height: 5.3 cm Length: 8.8 cm Width: 5.5 cm Left Kidney: Small in size normal in contour with diffuse increase in echotexture. Nonobstructing nephrolithiasis measuring up to 8 mm. No solid mass or hydronephrosis. The cortex measures 0.4 cm Height: 4.4 cm Length: 8.1 cm Width: 4.3 cm The urinary bladder is distended with a prevoid volume of 1379 mL and post void volume of 262 mL Ureteral jets: Right visualized, left not visualized IMPRESSION: Bilateral echogenic atrophic kidneys consistent with medical renal disease Electronically authenticated by: SHAHZAD HUDSON Date: 2022-03-21 17:25 Normal [facility] VIT B12 AND FOLATEon 022 Cobalamin (Vitamin B12) [Mass/Vol] 530.0 pg/mL Normal 193.0-986.0 [facility] Comment on above: Performed By: #### Tri 12FOCarlos FETIBC #### [facility] [address] [place] [address] [address] Flako Candelaria FOLATE 16.70 ng/mL Normal 8.60-58.90 [facility] Comment on above: Performed By: #### Tri 12ARNEL FETIBC #### [facility] [address] [place] [address] Dr. Flako Candelaria CBC AUTO DIFFon 03-14-2022 BASO # 0.0 103/ul Normal 0.0-0.1 [facility] Comment on above: Performed By: #### C BC #### [facility] [address] [place] [address] Dr. Flako Candelaria Basophils/100 WBC (Bld) 0.8 % Normal 0.2-2.0 [facility] Comment on above: Performed By: #### C BC #### [facility] [address] [place] [address] Dr. Flako Candelaria EO # 0.3 103/ul Normal 0.0-0.7 [facility] Comment on above: Performed By: #### C BC #### [facility] [address] [place] [address] Dr. Flako Candelaria Eosinophils/100 WBC (Bld) 6.4 % Normal 0.9-7.0 [facility] Comment on above: Performed By: #### C BC #### [facility] [address] [place] [address] Dr. Flako Candelaria Erythrocyte distribution width (RBC) [Ratio] 13.3 % Normal 11.0-15.0 [facility] Comment on above: Performed By: #### C BC #### [facility] [address] [place] [address] Dr. Flako Candelaria Hematocrit (Bld) [Volume fraction] 34.5 % Critically low 42.0-54.0 [facility] Comment on above: Performed By: #### C BC #### [facility] [address] [place] [address] Dr. Flako Candelaria Hemoglobin (Bld) [Mass/Vol] 11.5 g/dL Critically low 14.0-18.0 [facility] Comment on above: Performed By: #### C BC #### [facility] [address] [place] [address] Dr. Flako Candelaria IG # 0.01 10e3/ul Normal 0.00-0.03 [facility] Comment on above: Performed By: #### C BC #### [facility] [address] [place] [address] Dr. Flako Candelaria IG % 0.2 % Normal 0.0-0.5 [facility] Comment on above: Performed By: #### C BC #### [facility] [address] [place] [address] Dr. Flako Candelaria LYMPH # 2.0 103/ul Normal 1.2-3.8 [facility] Comment on above: Performed By: #### C BC #### [facility] [address] [place] [address] Dr. Flako Candelaria Lymphocytes/100 WBC (Bld) 36.8 % Normal 20.5-60.0 [facility] Comment on above: Performed By: #### C BC #### [facility] [address] [place] [address] Dr. Flako Candelaria MANUAL DIFF REQ NO Normal [facility] Comment on above: Performed By: #### C BC #### [facility] [address] [place] [address] Dr. Flako Candelaria MCH (RBC) [Entitic mass] 31.5 pg Normal 25.9-34.0 [facility] Comment on above: Performed By: #### C BC #### [facility] [address] [place] [address] Dr. Flako Candelaria MCHC (RBC) [Mass/Vol] 33.3 g/dL Normal 29.9-35.2 [facility] Comment on above: Performed By: #### C BC #### [facility] [address] [place] [address] Dr. Flako Candelaria MCV (RBC) [Entitic vol] 94.5 fL Critically high 80.0-94.0 [facility] Comment on above: Performed By: #### C BC #### [facility] [address] [place] [address] Dr. Flako Candelaria MONO # 0.5 103/ul Normal 0.3-0.8 [facility] Comment on above: Performed By: #### C BC #### [facility] [address] [place] [address] Dr. Flako Candelaria Monocytes/100 WBC (Bld) 9.8 % Normal 1.7-12.0 [facility] Comment on above: Performed By: #### C BC #### [facility] [address] [place] [address] Dr. Flako Candelaria NEUT # 2.5 103/ul Normal 1.4-6.5 [facility] Comment on above: Performed By: #### C BC #### [facility] [address] [address] [address] Flako Candelaria Neutrophils/100 WBC (Bld) 46.0 % Normal 43.0-75.0 [facility] Comment on above: Performed By: #### C BC #### [facility] [address] [address] [address] Flako Candelaria Platelet mean volume (Bld) [Entitic vol] 10.0 fL Normal 9.5-13.5 [facility] Comment on above: Performed By: #### C BC #### [facility] [address] [place] [address] Dr. Flako Candelaria PLT 174 103/ul Normal 150-450 [facility] Comment on above: Performed By: #### C BC #### [facility] [address] [place] [address] Dr. Flako Candelaria RBC 3.65 106/ul Critically low 4.70-6.10 [facility] Comment on above: Performed By: #### C BC #### [facility] [address] [place] [address] Dr. Flako Candelaria WBC 5.3 103/ul Normal 4.0-11.0 [facility] Comment on above: Performed By: #### C BC #### [facility] [address] [place] [address] Dr. Flako Candelaria LIPID PROFILEon 03-14-2022 CHOL-HDL RATIO NORM SEE BELOW Normal [facility] Comment on above: Result Comment: 3.3 - 4.4 LOW RISK 4.4 - 7.1 AVERAGE RISK 7.1 - 11.0 MODERATE RISK >11.0 HIGH RISK Performed By: #### C MP, LIPID #### [facility] [address] [address] [address] Flako Candelaria Cholesterol [Mass/Vol] 95 mg/dL Normal <=200 [facility] Comment on above: Performed By: #### C MP, LIPID #### [facility] [address] [address] [address] Flako Candelaria Cholesterol in HDL [Mass/Vol] 50 mg/dL Normal 40-60 [facility] Comment on above: Performed By: #### C MP, LIPID #### [facility] [address] [address] [address] Flako Candelaria Cholesterol in LDL [Mass/Vol] 38.2 mg/dL Normal [facility] Comment on above: Performed By: #### C MP, LIPID #### [facility] [address] [address] [address] Flako Candelaria Cholesterol.total/Cho lesterol in HDL [Mass ratio] 1.9 {ratio} Normal [facility] Comment on above: Performed By: #### C MP, LIPID #### [facility] [address] [address] [address] Flako Candelaria HDL NORMAL > or = 60 mg/dl - LO W CARDIOVASCULAR RISK <40 mg/dl - HIGH CARDIOVASCULAR RISK Normal [facility] Comment on above: Performed By: #### C MP, LIPID #### [facility] [address] [address] [address] Flako Candelaria LDL CALC NORMAL SEE BELOW Normal [facility] Comment on above: Result Comment: <100 mg/dl OPTIMAL 100 - 129 mg/dl NEAR OR ABOVE OPTIMAL 130 - 159 mg/dl BORDERLINE HIGH 160 - 189 mg/dl HIGH >190 mg/dl VERY HIGH Performed By: #### C MP, LIPID #### [facility] [address] [address] [address] Flako Candelaria Triglyceride [Mass/Vol] 34 mg/dL Normal <=150 [facility] Comment on above: Performed By: #### C MP, LIPID #### [facility] [address] [address] [address] Flako Candelaria VLDL CALC 6.8 mg/dL Normal [facility] Comment on above: Performed By: #### C MP, LIPID #### [facility] [address] [address] [address] Flako Candelaria PROF 14(COMP METB)on 022 Albumin [Mass/Vol] 3.8 g/dL Normal 3.4-5.0 [facility] Comment on above: Performed By: #### C MP, LIPID #### [facility] [address] [place] [address] Dr. Flako Candelaria Albumin/Globulin [Mass ratio] 1.3 {ratio} Normal [facility] Comment on above: Performed By: #### C MP, LIPID #### [facility] [address] [address] [address] Flako Candelaria ALP [Catalytic activity/Vol] 76 U/L Normal 46-116 [facility] Comment on above: Performed By: #### C MP, LIPID #### [facility] [address] [place] [address] Dr. Flako Candelaria ALT [Catalytic activity/Vol] 19 U/L Normal 16-63 [facility] Comment on above: Performed By: #### C MP, LIPID #### [facility] [address] [place] [address] Dr. Flako Candelaria Anion gap [Moles/Vol] 16.6 mmol/L Normal [facility] Comment on above: Performed By: #### C MP, LIPID #### [facility] [address] [place] [address] Dr. Flako Candelaria AST [Catalytic activity/Vol] 21 U/L Normal 15-37 [facility] Comment on above: Performed By: #### C MP, LIPID #### [facility] [address] [place] [address] Dr. Flako Candelaria Bilirubin [Mass/Vol] 0.4 mg/dL Normal 0.2-1.0 [facility] Comment on above: Performed By: #### C MP, LIPID #### [facility] [address] [address] [address] Flako Candelaria Calcium [Mass/Vol] 8.0 mg/dL Critically low 8.5-10.1 [facility] Comment on above: Performed By: #### C MP, LIPID #### [facility] [address] [place] [address] Dr. Flako Candelaria Chloride [Moles/Vol] 110 mmol/L Critically high 98-107 [facility] Comment on above: Performed By: #### C MP, LIPID #### [facility] [address] [place] [address] Dr. Flako Candelaria CO2 [Moles/Vol] 16.7 mmol/L Critically low 21.0-32.0 [facility] Comment on above: Performed By: #### C MP, LIPID #### [facility] [address] [place] [address] Dr. Flako Candelaria Creatinine [Mass/Vol] 3.20 mg/dL Critically high 0.70-1.30 [facility] Comment on above: Performed By: #### C MP, LIPID #### [facility] [address] [place] [address] Dr. Flako Candelaria EGFR-AF [place] 24 mL/min/1.73m2 Critically low >=60 [facility] Comment on above: Performed By: #### C MP, LIPID #### [facility] [address] [place] [address] Dr. Flako Candelaria EGFR-NON AF [place] 20 mL/min/1.73m2 Critically low >=60 [facility] Comment on above: Performed By: #### C MP, LIPID #### [facility] [address] [place] [address] Dr. Flako Candelaria Globulin (S) [Mass/Vol] 3.0 g/dL Normal [facility] Comment on above: Performed By: #### C MP, LIPID #### [facility] [address] [place] [address] Dr. Flako Candelaria Glucose [Mass/Vol] 71 mg/dL Critically low 74-106 [facility] Comment on above: Performed By: #### C MP, LIPID #### [facility] [address] [place] [address] Dr. Flako Candelaria Potassium [Moles/Vol] 4.3 mmol/L Normal 3.5-5.1 [facility] Comment on above: Performed By: #### C MP, LIPID #### [facility] [address] [place] [address] Dr. Flako Candelaria Protein [Mass/Vol] 6.8 g/dL Normal 6.4-8.2 [facility] Comment on above: Performed By: #### C MP, LIPID #### [facility] [address] [place] [address] Dr. Flako Candelaria Sodium [Moles/Vol] 139 mmol/L Normal 136-145 [facility] Comment on above: Performed By: #### C MP, LIPID #### [facility] [address] [place] [address] Dr. Flako Candelaria Urea nitrogen [Mass/Vol] 40.0 mg/dL Critically high 7.0-18.0 [facility] Comment on above: Performed By: #### C MP, LIPID #### [facility] [address] [place] [address] Dr. Flako Candelaria Urea nitrogen/Creatinine [Mass ratio] 12.5 mg/mg Normal [facility] Comment on above: Performed By: #### C MP, LIPID #### [facility] [address] [place] [address] Dr. Flako Candelaria URINE T PROTEIN CREAT RATIOo n 03-14-2022 Protein (U) [Mass/Vol] 18.3 mg/dL Critically high <=12.0 [facility] Comment on above: Performed By: #### U RTPCR #### [facility] [address] [place] [address] Dr. Flako Candelaria UR PROT CREAT RAT 0.36 Normal [facility] Comment on above: Performed By: #### U RTPCR #### [facility] [address] [place] [address] Dr. Flako Candelaria URINE CREAT 51.54 mg/dL Normal 20.00-300.[address] [facility] Comment on above: Performed By: #### U RTPCR #### [facility] [address] [place] [address] Dr. Flako Candelaria Covid-19 PCR (CVDTB)on 11-15 SARS-CoV-2 (COVID-19) RNA WAYLON+probe Ql (Unsp spec) Detected Critically abnormal NOT DETECTED [facility] Comment on above: Result Comment: This test is not yet approved or cleared by the [place] FDA. When there are no FDA-approved or cleared tests available, and other criteria are met, FDA can make tests available under an emergency access mechanism called an Emergency Use Authorization (EUA). The EUA for this test is supported by the [place] of Health and Human Service's declaration that circumstances exist to justify the emergency use of in vitro diagnostics for the detection and/or diagnosis of the virus that causes COVID-19. This EUA will remain in effect for the duration of the COVID-19 declaration justifying emergency of IVDs, unless it is terminated or revoked by the FDA (after which the test may no longer be used). Performed By: #### C [facility] #### [facility] [address] [place] [address] Dr. Flako Candelaria Vital Signs Date Time Vital Sign Value Performing Clinician Facility 07-16-2023 09:21-0500 Blood Pressure Location [facility] 07-16-2023 09:21-0500 Diastolic blood pressure 69 mm[Hg] [employer] [facility] 07-16-2023 09:21-0500 Heart rate 88 /min [employer] [facility] 07-16-2023 09:21-0500 Respiratory rate 16 /min [employer] [facility] 07-16-2023 09:21-0500 Systolic blood pressure 116 mm[Hg] [employer] [facility] 06-15-2023 14:30-0500 Body height 182.88 cm Ivan [email or web address] Other [employer] Other 06-15-2023 14:30-0500 Body mass index (BMI) [Ratio] 25.52 kg/m2 Ivan [email or web address] Other [employer] Other 06-15-2023 14:30-0500 Body weight 85.37 kg Ivan Ball Other [employer] Other 06-15-2023 14:30-0500 Diastolic blood pressure 68 mm[Hg] Ivan Ball Other [employer] Other 06-15-2023 14:30-0500 Systolic blood pressure 108 mm[Hg] Ivan Ball Other [employer] Other 04-16-2023 12:03-0500 Body height 182.88 cm DO Ivan Ball Work Phone: [facility] 04-16-2023 12:03-0500 Body temperature 97.9 [degF] DO Ivna Ball Work Phone: [facility] 04-16-2023 12:03-0500 Body weight 82.55 kg DO Ivan Ball Work Phone: [facility] 04-16-2023 12:03-0500 Diastolic blood pressure 81 mm[Hg] DO Ivan Ball Work Phone: [facility] 04-16-2023 12:03-0500 Heart rate 78 /min DO Ivan Ball Work Phone: [facility] 04-16-2023 12:03-0500 Respiratory rate 16 /min DO Ivan Ball Work Phone: [facility] 04-16-2023 12:03-0500 SaO2% (BldA) [Mass fraction] 98 % DO Ivan Ball Work Phone: [facility] 04-16-2023 12:03-0500 Systolic blood pressure 128 mm[Hg] DO Ivan Ball Work Phone: [facility] 04-14-2023 13:00-0500 Body height 182.88 cm Rodrigo Miller Other [facility] [employer] Other 04-14-2023 13:00-0500 Body mass index (BMI) [Ratio] 24.68 kg/m2 Rodrigo Andersonehrer Other [employer] Other 04-14-2023 13:00-0500 Body temperature 97.8 [degF] Rodrigo Andersonehrer Other [employer] Other 04-14-2023 13:00-0500 Body weight 82.56 kg Rodrigo Andersonehrer Other [employer] Other 04-14-2023 13:00-0500 Diastolic blood pressure 64 mm[Hg] Rodrigo Buehrer Other [employer] Other 04-14-2023 13:00-0500 SaO2% (BldA) [Mass fraction] 98 % Rodrigo Buehrer Other [employer] Other 04-14-2023 13:00-0500 Systolic blood pressure 112 mm[Hg] Rodrigo Buehrer Other [employer] Other 03-18-2023 15:15-0400 Body height 182.88 cm Jenny Chau Other [employer] Other 03-17-2023 10:45-0400 Body height 182.88 cm Rodrigo Andersonehrer Other [employer] Other 03-17-2023 10:45-0400 Body mass index (BMI) [Ratio] 24.68 kg/m2 Rodrigo Buehrer Other [employer] Other 03-17-2023 10:45-0400 Body temperature 97.8 [degF] Rodrigo Miller Other [employer] Other 03-17-2023 10:45-0400 Body weight 82.56 kg Rodrigo Miller Other [employer] Other 03-17-2023 10:45-0400 Diastolic blood pressure 60 mm[Hg] Rodrigo Williamgifty Other [employer] Other 03-17-2023 10:45-0400 SaO2% (BldA) [Mass fraction] 98 % Rodrigo Hornerray Other [employer] Other 03-17-2023 10:45-0400 Systolic blood pressure 104 mm[Hg] Rodrigo Hornerray Other [employer] Other 03-10-2023 13:11-0400 Blood Pressure Location [facility] 03-10-2023 13:11-0400 Diastolic blood pressure 67 mm[Hg] [facility] 03-10-2023 13:11-0400 Heart rate 78 /min [facility] 03-10-2023 13:11-0400 Systolic blood pressure 113 mm[Hg] [facility] 03-08-2023 17:00-0400 Diastolic blood pressure 72 mm[Hg] DO Ivan Ball Work Phone: [facility] 03-08-2023 17:00-0400 Heart rate 80 /min DO Ivan Ball Work Phone: [facility] 03-08-2023 17:00-0400 Respiratory rate 16 /min DO Ivan Ball Work Phone: [facility] 03-08-2023 17:00-0400 SaO2% (BldA) [Mass fraction] 97 % DO Ivan Ball Work Phone: [facility] 03-08-2023 17:00-0400 Systolic blood pressure 121 mm[Hg] DO Ivan Ball Work Phone: [facility] 03-08-2023 13:31-0400 Body temperature 97.9 [degF] DO Ivan Ball Work Phone: [facility] 03-08-2023 13:29-0400 Body height 182.88 cm DO Ivan Ball Work Phone: [facility] 03-08-2023 13:29-0400 Body weight 87 kg DO Ivan Ball Work Phone: [facility] 03-05-2023 15:35-0400 Diastolic blood pressure 80 mm[Hg] DO Ivan Ball Work Phone: [facility] 03-05-2023 15:35-0400 Heart rate 64 /min DO Ivan Ball Work Phone: [facility] 03-05-2023 15:35-0400 Respiratory rate 16 /min DO Ivan Ball Work Phone: [facility] 03-05-2023 15:35-0400 SaO2% (BldA) [Mass fraction] 100 % DO Ivan Ball Work Phone: [facility] 03-05-2023 15:35-0400 Systolic blood pressure 123 mm[Hg] DO Ivan Ball Work Phone: [facility] 03-05-2023 13:04-0400 Body height 182.88 cm DO Ivan Ball Work Phone: [facility] 03-05-2023 13:04-0400 Body mass index (BMI) [Ratio] 24.7 kg/m2 DO Ivan Ball Work Phone: [facility] 03-05-2023 13:04-0400 Body weight 82.55 kg DO Ivan Ball Work Phone: [facility] 03-05-2023 11:57-0400 Body temperature 97.9 [degF] DO Ivan Ball Work Phone: [facility] 02-17-2023 13:15-0400 Body height 182.88 cm Rodrigo Miller Other [employer] Other 02-17-2023 13:15-0400 Body mass index (BMI) [Ratio] 24.68 kg/m2 Rodrigo Williamrer Other [employer] Other 02-17-2023 13:15-0400 Body temperature 97.3 [degF] Rodrigo Williamrer Other [employer] Other 02-17-2023 13:15-0400 Body weight 82.56 kg Rodrigo Hornerr Other [employer] Other 02-17-2023 13:15-0400 Diastolic blood pressure 68 mm[Hg] Rodrigo Hornerr Other [employer] Other 02-17-2023 13:15-0400 SaO2% (BldA) [Mass fraction] 98 % Rodrigo Williamreray Other [employer] Other 02-17-2023 13:15-0400 Systolic blood pressure 106 mm[Hg] Rodrigo Williamrer Other [employer] Other 02-12-2023 10:15-0400 Body height 182.88 cm Ivan Lloyd Other [employer] Other 02-12-2023 10:15-0400 Body mass index (BMI) [Ratio] 24.68 kg/m2 Ivan Ball Other [employer] Other 02-12-2023 10:15-0400 Body weight 82.56 kg Ivan Ball Other [employer] Other 02-12-2023 10:15-0400 Diastolic blood pressure 79 mm[Hg] Ivan Ball Other [employer] Other 02-12-2023 10:15-0400 Respiratory rate 12 /min Iavn Ball Other [employer] Other 02-12-2023 10:15-0400 Systolic blood pressure 120 mm[Hg] Ivan Ball Other [employer] Other 02-06-2023 15:52-0400 Body temperature 98 [degF] DO Ivan Ball Work Phone: [facility] 02-06-2023 15:52-0400 Diastolic blood pressure 68 mm[Hg] DO Ivan Ball Work Phone: [facility] 02-06-2023 15:52-0400 Heart rate 110 /min DO Ivan Ball Work Phone: [facility] 02-06-2023 15:52-0400 Respiratory rate 16 /min DO Ivan Ball Work Phone: [facility] 02-06-2023 15:52-0400 SaO2% (BldA) [Mass fraction] 97 % DO Ivan Ball Work Phone: [facility] 02-06-2023 15:52-0400 Systolic blood pressure 101 mm[Hg] DO Ivan Ball Work Phone: [facility] 02-06-2023 06:05-0400 Body weight 88.1 kg DO Ivan Ball Work Phone: [facility] 02-05-2023 20:52-0400 Inhaled oxygen flow rate 8 L/min DO Ivan Ball Work Phone: [facility] 02-05-2023 17:05-0400 Body height 182.88 cm DO Ivan Ball Work Phone: [facility] 02-05-2023 17:05-0400 Body mass index (BMI) [Ratio] 24.7 kg/m2 DO Ivan Ball Work Phone: [facility] 01-29-2023 10:19-0400 Blood Pressure Location [facility] 01-29-2023 10:19-0400 Diastolic blood pressure 77 mm[Hg] [facility] 01-29-2023 10:19-0400 Heart rate 72 /min [facility] 01-29-2023 10:19-0400 Systolic blood pressure 122 mm[Hg] [facility] 01-23-2023 19:30-0400 Body temperature 98.6 [degF] Naun Abbasi [facility] 01-23-2023 19:30-0400 Diastolic blood pressure 74 mm[Hg] Naun Elroy [facility] 01-23-2023 19:30-0400 Heart rate 82 /min Naun Elroy [facility] 01-23-2023 19:30-0400 Mean blood pressure 91 mm[Hg] Naun Elroy [facility] 01-23-2023 19:30-0400 Respiratory rate 17 /min Naun Elroy [facility] 01-23-2023 19:30-0400 SaO2% (BldA) [Mass fraction] 98 % Naun Elroy [facility] 01-23-2023 19:30-0400 Systolic blood pressure 124 mm[Hg] Naun Elroy [facility] 01-23-2023 19:00-0400 Diastolic blood pressure 78 mm[Hg] Naun Elroy [facility] 01-23-2023 19:00-0400 Heart rate 70 /min Naun Elroy [facility] 01-23-2023 19:00-0400 Mean blood pressure 93 mm[Hg] Naun Elroy [facility] 01-23-2023 19:00-0400 Respiratory rate 18 /min Naun Elroy [facility] 01-23-2023 19:00-0400 Systolic blood pressure 122 mm[Hg] Naun Elroy [facility] 01-23-2023 18:43-0400 Diastolic blood pressure 72 mm[Hg] Naun Elroy [facility] 01-23-2023 18:43-0400 Heart rate 76 /min Naun Elroy [facility] 01-23-2023 18:43-0400 Mean blood pressure 88 mm[Hg] Naun Elroy [facility] 01-23-2023 18:43-0400 Respiratory rate 16 /min Naun Elroy [facility] 01-23-2023 18:43-0400 SaO2% (BldA) [Mass fraction] 98 % Naun Elroy [facility] 01-23-2023 18:43-0400 Systolic blood pressure 120 mm[Hg] Naun Abbasi [facility] 01-23-2023 17:26-0400 Body temperature 98.6 [degF] Naun Abbasi [facility] 01-23-2023 17:26-0400 Heart rate 69 /min Naun Abbasi [facility] 01-23-2023 17:10-0400 Heart rate 82 /min Naun Abbasi [facility] 01-22-2023 11:25-0400 Diastolic blood pressure 67 mm[Hg] DO Ivan Ball Work Phone: [facility] 01-22-2023 11:25-0400 Heart rate 67 /min DO Ivan Ball Work Phone: [facility] 01-22-2023 11:25-0400 Respiratory rate 16 /min DO Ivan Ball Work Phone: [facility] 01-22-2023 11:25-0400 SaO2% (BldA) [Mass fraction] 99 % DO Ivan Ball Work Phone: [facility] 01-22-2023 11:25-0400 Systolic blood pressure 99 mm[Hg] DO Ivan Ball Work Phone: [facility] 01-22-2023 10:40-0400 Inhaled oxygen flow rate 6 L/min DO Ivan Ball Work Phone: [facility] 01-22-2023 09:02-0400 Body height 182.88 cm DO Ivan Ball Work Phone: [facility] 01-22-2023 09:02-0400 Body mass index (BMI) [Ratio] 24.7 kg/m2 DO Ivan Ball Work Phone: [facility] 01-22-2023 09:02-0400 Body weight 82.55 kg DO Ivan Ball Work Phone: [facility] 01-22-2023 08:31-0400 Body temperature 97.9 [degF] DO Ivan Ball Work Phone: [facility] 11-27-2022 08:03-0400 Blood Pressure Location Barby Lue [facility] 11-27-2022 08:03-0400 Diastolic blood pressure 63 mm[Hg] Barby Lue [facility] 11-27-2022 08:03-0400 Heart rate 98 /min Barby Lue [facility] 11-27-2022 08:03-0400 Systolic blood pressure 101 mm[Hg] Barby Lue [facility] 10-20-2022 14:37-0400 Blood Pressure Location Barby Lue [facility] 10-20-2022 14:37-0400 Diastolic blood pressure 83 mm[Hg] Barby Lue [facility] 10-20-2022 14:37-0400 Heart rate 72 /min Barby Lue [facility] 10-20-2022 14:37-0400 Respiratory rate 16 /min Barby Lue [facility] 10-20-2022 14:37-0400 Systolic blood pressure 121 mm[Hg] Barby Lue [facility] 09-24-2022 15:30-0400 Body height Ivan Ball Other [employer] Other 09-24-2022 15:30-0400 Body mass index (BMI) [Ratio] 24.68 kg/m2 Ivan Ball Other [employer] Other 09-24-2022 15:30-0400 Body weight 82.56 kg Ivan Ball Other [employer] Other 09-24-2022 15:30-0400 Diastolic blood pressure 78 mm[Hg] Ivan Ball Other [employer] Other 09-24-2022 15:30-0400 Respiratory rate 12 /min Ivan Ball Other [employer] Other 09-24-2022 15:30-0400 Systolic blood pressure 119 mm[Hg] Ivan Ball Other [place] [employer] Other 09-11-2022 13:31-0400 Diastolic blood pressure 76 mm[Hg] DO Ivan Ball Work Phone: [facility] 09-11-2022 13:31-0400 Heart rate 95 /min DO Ivan Ball Work Phone: [facility] 09-11-2022 13:31-0400 Respiratory rate 16 /min DO Ivan Ball Work Phone: [facility] 09-11-2022 13:31-0400 SaO2% (BldA) [Mass fraction] 98 % DO Ivan Ball Work Phone: [facility] 09-11-2022 13:31-0400 Systolic blood pressure 124 mm[Hg] DO Ivan Ball Work Phone: [facility] 09-11-2022 12:22-0400 Body temperature 98.2 [degF] DO Ivan Ball Work Phone: [facility] 09-11-2022 06:00-0400 Body weight 81.8 kg DO Ivan Ball Work Phone: [facility] 09-10-2022 10:27-0400 Inhaled oxygen flow rate 6 L/min DO Ivan Lloyd Work Phone: [facility] 09-10-2022 09:48-0400 Body height 182.88 cm DO Ivan Lloyd Work Phone: [facility] 09-10-2022 09:48-0400 Body mass index (BMI) [Ratio] 24.4 kg/m2 DO Ivan Lloyd Work Phone: [facility] 08-28-2022 14:53-0400 Body height 182.9 cm Meryl Berger MD, PhD Work Phone: [facility] 08-28-2022 14:53-0400 Body temperature 98.49 [degF] Meryl Berger MD, PhD Work Phone: [facility] 08-28-2022 14:53-0400 Body weight 83.69 kg Meryl Berger MD, PhD Work Phone: [facility] 08-28-2022 14:53-0400 Diastolic blood pressure 87 mm[Hg] Meryl Berger MD, PhD Work Phone: [facility] 08-28-2022 14:53-0400 Heart rate 92 /min Meryl Berger MD, PhD Work Phone: [facility] 08-28-2022 14:53-0400 Respiratory rate 14 /min Meryl Berger MD, PhD Work Phone: [facility] 08-28-2022 14:53-0400 SaO2% (BldA) [Mass fraction] 98 % Meryl Berger MD, PhD Work Phone: [facility] 08-28-2022 14:53-0400 Systolic blood pressure 134 mm[Hg] Meryl Berger MD , PhD Work Phone: [facility] 08-01-2022 16:40-0400 SaO2% (BldA) [Mass fraction] 99 % YING BARROW [facility] Comment on above: Order Comment: Specimen Type: ARTERIAL B LOOD SPECIMENOrdering Facility: [facility] Address: [address] [place] [address] Performed By: #### A LLMG ####[facility] LABCLIA [id number] [place] [id number] [place] 08-01-2022 15:19-0400 SaO2% (BldA) [Mass fraction] 99 % YING SIMS-PEREZ [facility] Comment on above: Order Comment: Specimen Type: ARTERIAL B LOOD SPECIMENOrdering Facility: [facility] Address: [address] [place] [address] Performed By: #### A LLMG ####[facility] LABIA [id number] [address] [place] 08-01-2022 13:40-0400 SaO2% (BldA) [Mass fraction] 99 % YING SIMS-PEREZ [facility] Comment on above: Order Comment: Specimen Type: ARTERIAL B LOOD SPECIMENOrdering Facility: [facility] Address: [address] [place] [address] Performed By: #### A LLMG ####[facility] LABIA [id number] [place] [id number] [place] 08-01-2022 12:16-0400 SaO2% (BldA) [Mass fraction] 99 % YING SIMS-PEREZ [facility] Comment on above: Order Comment: Specimen Type: ARTERIAL B LOOD SPECIMENOrdering Facility: [facility] Address: [address] [place] [address] Performed By: #### A LLMG ####[facility] LABIA [id number] [place] [id number] [place] 07-30-2022 09:40-0400 SaO2% (BldA) [Mass fraction] 87 % YING SIMS-PEREZ [facility] Comment on above: Order Comment: Specimen Type: ARTERIAL B LOOD SPECIMENOrdering Facility: [facility] Address: [address] [place] [address] Performed By: #### A LLBG ####[facility] LABCLIA [id number] [place] [id number] [address] [place] 07-29-2022 02:58-0400 Body temperature 99.7 [degF] Vianney Obregon MD Work Phone: [facility] 07-29-2022 02:58-0400 Diastolic blood pressure 65 mm[Hg] Vianney Obregon MD Work Phone: [facility] 07-29-2022 02:58-0400 Heart rate 97 /min Vianney Obregon MD Work Phone: [facility] 07-29-2022 02:58-0400 Respiratory rate 16 /min Vianney Obregon MD Work Phone: [facility] 07-29-2022 02:58-0400 SaO2% (BldA) [Mass fraction] 100 % Vianney Obregon MD Work Phone: [facility] 07-29-2022 02:58-0400 Systolic blood pressure 137 mm[Hg] Vianney Obregon MD Work Phone: [facility] 07-28-2022 06:06-0400 Body height 182.9 cm Vianney Obregon MD Work Phone: [facility] 07-28-2022 06:06-0400 Body mass index (BMI) [Ratio] 25.95 kg/m2 Vianney Obregon MD Work Phone: [facility] 07-28-2022 06:06-0400 Body weight 86.8 kg Vianney Obregon MD Work Phone: [facility] 07-28-2022 03:47-0400 Body temperature 97.5 [degF] DO Ivan Ball Work Phone: [facility] 07-28-2022 03:47-0400 Diastolic blood pressure 60 mm[Hg] DO Ivan Ball Work Phone: [facility] 07-28-2022 03:47-0400 Heart rate 107 /min DO Ivan Ball Work Phone: [facility] 07-28-2022 03:47-0400 Respiratory rate 18 /min DO Ivan Ball Work Phone: [facility] 07-28-2022 03:47-0400 SaO2% (BldA) [Mass fraction] 100 % DO Ivan Ball Work Phone: [facility] 07-28-2022 03:47-0400 Systolic blood pressure 117 mm[Hg] DO Ivan Ball Work Phone: [facility] 07-27-2022 20:08-0400 Body height 182.88 cm DO Ivan Ball Work Phone: [facility] 07-27-2022 20:08-0400 Body weight 88.6 kg DO Ivan Ball Work Phone: [facility] Encounters Encounter Date Encounter Type Care Provider Facility Start: 07-21-2023 End: 07-22-2023 ambulatory Catrachita Tilley Facility:[facility] Start: 07-16-2023 End: 07-17-2023 ambulatory Catrachita Tilley Facility:[facility] Start: 07-16-2023 End: 07-16-2023 Patient encounter procedure Catrachita Tilley [facility] Start: 07-14-2023 End: 07-14-2023 Patient encounter status Injection Rej Work Phone: [facility] Start: 07-14-2023 End: 07-14-2023 Subsequent hospital visit by physician Prudencio [facility] Rej Work Phone: Nuclear Medicine Comment on above: Encounter for other preprocedural examination [Z01.818] Start: 07-09-2023 Orders Only Michael laird MD Work Phone: [facility] Comment on above: Congestive heart nita lure, unspecified HF chronicity, unspecified heart failure type (HCC) (Primary Dx); Preop cardiovascular exam; Abnormal echocardiogram ECHO results Start: 07-09-2023 Patient encounter status Kristi Paz MD Work Phone: [facility] Start: 06-23-2023 End: 06-23-2023 ambulatory MICHAEL PAZ Facility:[facility] Start: 06-23-2023 Encounter for preprocedural cardiovascular examination YING SIMS-PEREZ [facility] Start: 06-23-2023 End: 06-23-2023 Nursing evaluation of patient and report Nurse Card [facility] Work Phone: Cardiology Comment on above: Encounter for other preprocedural examination; Preop cardiovascular exam; Pre-transplant evaluation for kidney transplant Start: 06-23-2023 End: 06-23-2023 Patient encounter status Nurse Card [facility] Work Phone: [facility] Start: 06-23-2023 End: 06-24-2023 ambulatory MERYL BERGER Facility:[facility] Start: 06-23-2023 Encounter for other preprocedural examination YING BARROW [facility] Start: 06-16-2023 ambulatory Barby Shirley Facility:[facility] Start: 06-15-2023 End: 06-15-2023 ambulatory Ivan Lloyd Other [employer] Other Start: 06-15-2023 Patient encounter procedure Ivan Lloyd [facility] Start: 05-19-2023 End: 05-20-2023 ambulatory IVAN LLOYD Facility:[facility] Start: 05-19-2023 Encounter for other preprocedural examination YING BARROW [facility] Start: 05-19-2023 End: 05-20-2023 ambulatory CAN YUSUF Facility:[facility] Start: 05-19-2023 Encounter for other preprocedural examination YING SIMS-PEREZ [facility] Start: 05-19-2023 End: 05-20-2023 ambulatory IVAN LLOYD Facility:[facility] Start: 05-14-2023 End: 05-14-2023 ambulatory MICHAEL PAZ Facility:[facility] Start: 04-30-2023 End: 04-30-2023 ambulatory Em Melissa II Facility:[facility] Start: 04-30-2023 Office outpatient vi sit 15 minutes Em Shin II [facility] Start: 04-30-2023 End: 04-30-2023 ambulatory DO Ivan Ball Work Phone: [facility] Work Phone: Start: 04-30-2023 End: 04-30-2023 Patient encounter procedure DO Ivan Ball Work Phone: [facility] Start: 04-28-2023 End: 04-28-2023 ambulatory Ivan Lloyd Other [employer] Other Start: 04-28-2023 Telephone encounter Ivan Lloyd Hardy Lloyd [facility] Start: 04-16-2023 End: 04-16-2023 ambulatory Ivan Lloyd Facility:[facility] Start: 04-16-2023 End: 04-16-2023 Admission to same day surgery center DO Ivan Ball Work Phone: [facility]-Interventional Radiology Work Phone: Start: 04-16-2023 End: 04-16-2023 ambulatory DO Ivan Ball Work Phone: [facility] Work Phone: Start: 04-14-2023 End: 04-14-2023 ambulatory Rodrigo Miller Other [employer] Other Start: 04-14-2023 Office outpatient vi sit 15 minutes Rodrigo Miller [facility] Vascular Surgery Start: 03-18-2023 End: 03-18-2023 Patient encounter procedure DO Ivan Ball Work Phone: [facility] Start: 03-18-2023 End: 03-18-2023 ambulatory Ivan Ball [employer] Other Start: 03-18-2023 Postop follow up vis it related to original px Jenny Bergarney [facility] Start: 03-17-2023 End: 03-17-2023 ambulatory Rodrigo Hornerr Other [employer] Other Start: 03-17-2023 Postop follow up vis it related to original px Rodrigo Buehrer [facility] Start: 03-10-2023 End: 03-11-2023 ambulatory Barby Shirley [facility] Start: 03-10-2023 End: 03-10-2023 Patient encounter procedure Barby Shirley [facility] Start: 03-08-2023 End: 03-08-2023 Emergency department patient visit Ivan Ball Facility:[facility] Start: 03-08-2023 End: 03-08-2023 Emergency department patient visit DO Ivan Ball Work Phone: [facility]-Emergency [facility] Work Phone: Start: 03-05-2023 End: 03-05-2023 ambulatory Rodrigo Hornerr Facility:[facility] Start: 03-05-2023 End: 03-05-2023 Admission to same day surgery center DO Ivan Ball Work Phone: [facility] [place] Start: 03-05-2023 End: 03-05-2023 ambulatory DO Ivan Ball Work Phone: [facility] Work Phone: Start: 02-18-2023 End: 02-18-2023 ambulatory Jenny Downey Other [employer] Other Start: 02-18-2023 Postop follow up vis it related to original px Jenny Bergarney [facility] Start: 02-17-2023 End: 02-17-2023 ambulatory Rodrigo Miller Other [employer] Other Start: 02-17-2023 Office outpatient vi sit 25 minutes Rodrigo Miller [facility] Vascular Surgery Start: 02-12-2023 End: 02-12-2023 ambulatory Ivan Lloyd Other [employer] Other Start: 02-12-2023 Transitional care shelbie valencia srvc 14 day discharge Ivan Gabino [facility] Start: 02-09-2023 End: 02-09-2023 ambulatory Em Melissa II Other [employer] Other Start: 02-09-2023 Telephone encounter Em Melissa II [facility] Start: 02-06-2023 End: 02-06-2023 ambulatory He Fam Other [employer] Other Start: 02-06-2023 Telephone encounter Essmirella Fam [facility] Start: 02-05-2023 End: 02-06-2023 Evaluation and management of inpatient Essam Jigarashi Facility:[facility] Start: 02-05-2023 End: 02-06-2023 Evaluation and management of inpatient DO Ivan Lloyd Work Phone: [facility] [place] [facility] Work Phone: Start: 01-29-2023 Patient encounter status Katty torres [facility] Start: 01-29-2023 Telephone encounter Katty [facility] Comment on above: Referral - Kidney Tx p Start: 01-29-2023 End: 01-30-2023 ambulatory Barby Shirley Facility: [facility] Start: 01-29-2023 End: 01-29-2023 Patient encounter procedure Barby Shirley [facility] Start: 01-23-2023 End: 01-23-2023 Emergency department patient visit Naun Abbasi Facility:[facility] Start: 01-23-2023 End: 01-23-2023 Emergency department patient visit Naun Abbasi [facility] Start: 01-22-2023 Telephone encounter Rodrigo Miller [facility] Vascular Surgery Start: 01-22-2023 End: 01-22-2023 ambulatory Rodrigoluis fernando Williamray [employer] Other Start: 01-22-2023 End: 01-22-2023 Admission to same day surgery center DO [facility] [place] [facility] [place] Start: 01-12-2023 End: 01-12-2023 ambulatory Ivan Gabino Other [employer] Other Start: 01-12-2023 Telephone encounter Ivan Lloyd [facility] Start: 11-27-2022 Telephone encounter Ivan Lloyd [facility] Start: 11-27-2022 End: 11-28-2022 ambulatory Barby Shirley [employer] Other Start: 11-27-2022 End: 11-27-2022 Patient encounter procedure Barby Shirley [facility] Start: 11-20-2022 End: 11-20-2022 ambulatory Ivan Lloyd Other [employer] Other Start: 11-20-2022 Telephone encounter Ivan Gabino [facility] Start: 11-12-2022 End: 11-12-2022 ambulatory Ivan Gabino Other [employer] Other Start: 11-12-2022 Nursing evaluation o f patient and report Ivan Lloyd [facility] Start: 10-27-2022 ambulatory Barby Shirley Facility:[facility] Start: 10-26-2022 ambulatory Barby Shirley Facility:[facility] Start: 10-21-2022 Telephone encounter Liver Txp Coordinator Work Phone: [facility] Comment on above: Follow Up Start: 10-20-2022 End: 10-21-2022 ambulatory Barby Shirley Facility:[facility] Start: 10-20-2022 End: 10-20-2022 Patient encounter procedure Barby Shirley [facility] Start: 10-15-2022 ambulatory Barby Shirley Facility:[facility] Start: 10-10-2022 End: 10-10-2022 ambulatory Ivan Lloyd Other [employer] Other Start: 10-10-2022 Telephone encounter Ivna Lloyd [facility] Start: 10-02-2022 End: 10-02-2022 ambulatory MERYL BERGER Facility:[facility] Start: 09-24-2022 End: 09-24-2022 ambulatory Ivan Lloyd Other [employer] Other Start: 09-24-2022 Office outpatient vi sit 25 minutes Ivan Lloyd [facility] Start: 09-23-2022 End: 09-23-2022 ambulatory MERYL BERGER Facility:[facility] Start: 09-23-2022 End: 09-23-2022 Telemedicine consultation with patient Meryl Berger MD, PhD Work Phone: [facility] Start: 09-23-2022 End: 09-23-2022 ambulatory Rodrigo Miller Facility:[facility] Start: 09-23-2022 End: 09-23-2022 ambulatory DO Ivan Lloyd Work Phone: [facility] Work Phone: Comment on above: S/P exploratory lapa rotomy (Primary Dx); SBS (short bowel syndrome) Start: 09-23-2022 End: 09-23-2022 Patient encounter procedure DO Ivan Lloyd Work Phone: [facility]-Ultrasound [place] [facility] Start: 09-18-2022 End: 09-19-2022 ambulatory Barby OrdonezSeth Mcdowellcarlos Facility:[facility] Start: 09-18-2022 End: 09-18-2022 Patient encounter procedure Barbyhéctor Mcdowellcarlos [facility] Start: 09-12-2022 Telephone encounter Intestinal Trans Coord Main Work Phone: [facility] Comment on above: Patient Question (/) Start: 09-09-2022 Telephone encounter Intestinal Trans Coord Main Work Phone: [facility] Comment on above: Follow Up Patient Question (/) Start: 09-08-2022 End: 09-11-2022 Evaluation and management of inpatient Sergio Lassiter Facility:[facility] Start: 09-08-2022 End: 09-11-2022 Evaluation and management of inpatient DO Ivan Lloyd Work Phone: [facility] [place] [facility] Work Phone: Start: 09-08-2022 Telephone encounter Intestinal Trans Coord Main Work Phone: [facility] Comment on above: Patient Question (/) Start: 08-28-2022 End: 08-28-2022 Patient encounter procedure Meryl Berger MD, PhD Work Phone: [facility] Comment on above: Stage 3 chronic kidn ey disease, unspecified whether stage 3a or 3b CKD (HCC) (Primary Dx); SBS (short bowel syndrome); S/P exploratory laparotomy Start: 08-28-2022 End: 08-29-2022 ambulatory MERYL BERGER Facility:[facility] Start: 08-22-2022 Telephone encounter Intestinal Trans Coord Main Work Phone: [facility] Comment on above: Return Call Request Start: 08-18-2022 Telephone encounter Intestinal Trans Coord Main Work Phone: [facility] Comment on above: Appointment Start: 07-31-2022 End: 07-31-2022 Evaluation and management of inpatient YING SIMS-PEREZ Facility:[facility] Start: 07-31-2022 Telephone encounter Intestinal Trans Coord Main Work Phone: [facility] Comment on above: Case Review Start: 07-29-2022 Telephone encounter Intestinal Trans Coord Main Work Phone: [facility] Comment on above: Referral Request Start: 07-29-2022 End: 08-13-2022 Evaluation and management of inpatient MASATO FUJIKI Facility:[facility] Start: 07-28-2022 End: 07-29-2022 Evaluation and management of inpatient VIANNEY ARNAV [facility] Start: 07-28-2022 End: 07-29-2022 Evaluation and management of inpatient Vianney Obregon MD Work Phone: [facility] Car 3- [facility] Comment on above: Melena Start: 07-27-2022 End: 07-28-2022 Evaluation and management of inpatient Obaydah M Daromar Facility:[facility] Start: 07-27-2022 End: 07-28-2022 Evaluation and management of inpatient DO Ivan Lloyd Work Phone: [facility] [place] [facility] Work Phone: Start: 07-27-2022 End: 07-27-2022 Emergency department patient visit Elver Suggs Facility:[facility] Start: 03-21-2022 End: 03-22-[address] IVAN LLOYD Facility:[facility] Start: 03-16-2022 Encounter for genera l adult medical examination without abnormal findings DR IVAN LLOYD [facility] Start: 03-14-2022 End: 03-15-[address] IVAN LLOYD Facility:[facility] Start: 03-14-2022 End: 03-15-2022 Encounter for general adult medical examination without abnormal findings DR IVAN LLOYD Facility:[facility] Start: 03-07-2022 Adult health examination Loki Lloyd Other [employer] Other Start: 03-07-2022 Encounter for genera l adult medical examination without abnormal findings mE Melissa II Other [employer] Other Start: 12-01-2021 End: 12-01-[address] IVAN LLOYD Facility:[facility] Procedures Date Procedure Procedure Detail Performing Clinician Start: 07-14-2023 Myocardial spect mul tiple studies Michael Paz MD Work Phone: Start: 06-23-2023 Echocardiography JUN GARCIAIO-PEREZ Start: 05-19-2023 Antibody screen YING SIMS-PEREZ Comment on above: Order Comment: Speci men Type: BLOOD SPECIMENOrdering Facility: [facility] Address: [address] [place] [address] Performed By: #### T SCR ####CC MAIN BLOOD BANKCLIA [id number] [address] Start: 04-30-2023 Plain X-ray of left hip DO Min[facility] Work Phone: Start: 04-16-2023 Replacement of catheter DO Minteos Work Phone: Start: 03-18-2023 Plain X-ray of left hip DO [employer] Phone: Start: 03-10-2023 Transurethral cystoscopy Barby Shirley Start: 03-10-2023 Ultrasonography by transrectal approach Barby Shirley Start: 03-08-2023 Blood culture for bacteria, including anaerobic screen DO [facility] Work Phone: Start: 03-08-2023 Ultrasonography of arteriovenous fistula DO [employer] Phone: Start: 03-05-2023 Arteriovenous fistulization DO [employer] Phone: Start: 02-05-2023 End: 02-05-2023 Plain X-ray of left hip DO [employer] Phone: Start: 02-05-2023 Antibody screen Em Melissa II Comment on above: Result Comment: PERF ORMED BY: [facility] [address] [place] [address] PATHOLOGIST SCRUBBING MACHINE OPERATOR RADHA PETERSON M.D. Start: 02-05-2023 Total replacement of left hip joint DO Ivan Ball Work Phone: Start: 02-05-2023 Pelvis X-ray DO Benjami n Ball Work Phone: Start: 02-05-2023 Plain X-ray of left femur DO Ivan Ball Work Phone: Start: 02-05-2023 Plain chest X-ray DO Be njamin Ball Work Phone: Start: 01-22-2023 Arteriovenous fistulization DO Ivan Ball Work Phone: Start: 01-16-2023 Hip joint structure (body structure) Mohamad Mouchli Start: 09-10-2022 US angiography DO Loki min Ball Work Phone: Start: 09-10-2022 Plain chest X-ray DO Be njamin Ball Work Phone: Start: 09-08-2022 CT of abdomen and pe lvis without contrast DO Ivan Ball Work Phone: Start: 09-08-2022 Blood culture for bacteria, including anaerobic screen DO Ivan Ball Work Phone: Start: 09-08-2022 Urine culture DO Benjam in Ball Work Phone: Start: 08-13-2022 Antibody screen YING SIMS-PEREZ Comment on above: Order Comment: Speci men Type: BLOOD SPECIMENOrdering Facility: [facility] Address: [address] [place] [address] Performed By: #### T SCR ####CC MAIN BLOOD BANKCLIA [id number] [address] [place] Start: 08-10-2022 Antibody screen YING SIMS-PEREZ Comment on above: Order Comment: Speci men Type: BLOOD SPECIMENOrdering Facility: [facility] Address: [address] [place] [address] Performed By: #### T SCR ####CC MAIN BLOOD BANKCLIA [id number] [address] Start: 08-07-2022 Antibody screen YING SIMS-PEREZ Comment on above: Order Comment: Speci men Type: BLOOD SPECIMENOrdering Facility: [facility] Address: [address] [place] [address] Performed By: #### T SCR ####CC MAIN BLOOD BANKCLIA [id number] [address] Start: 08-04-2022 H/O: surgery S/P explorator y laparotomy Intestinal Main Work Phone: Start: 08-04-2022 Antibody screen YING SIMS-PEREZ Comment on above: Order Comment: Speci men Type: BLOOD SPECIMENOrdering Facility: [facility] Address: [address] [place] [address] Performed By: #### T SCR ####CC MAIN BLOOD BANKCLIA [id number] [address] Start: 07-30-2022 Antibody screen YING SIMS-PEREZ Comment on above: Order Comment: Speci men Type: BLOOD SPECIMENOrdering Facility: [facility] Address: [address] [place] [address] Performed By: #### T SCR ####CC MAIN BLOOD BANKCLIA [id number] [address] Start: 07-29-2022 End: 07-29-2022 TRANSFUSE PLATELETS Sandee Sampson DO Work Phone: Start: 07-29-2022 End: 07-29-2022 TRANSFUSE PLASMA Sandee Sampson DO Work Phone: Start: 07-29-2022 COVID-19, RAPID Teresa wolf MD Work Phone: Start: 07-28-2022 Calcium ionized Yvonne Swain DO Work Phone: Start: 07-28-2022 PREPARE PLATELETS Sandee Sampson DO Work Phone: Start: 07-28-2022 Basic metabolic pane l calcium total Néstor Vale MD Work Phone: Start: 07-28-2022 End: 07-28-2022 Transfusion of packed red blood cells Sandee Sampson DO Work Phone: Start: 07-28-2022 TEG GLOBAL HEMOSTASIS Mery Matta MD Work Phone: Start: 07-28-2022 End: 07-28-2022 Transfusion of packed red blood cells Teresa Rodriguez MD Work Phone: Start: 07-28-2022 Ct angio abd&plvis c ntrst mtrl w/wo cntrst img Pamela Pat MD Work Phone: Start: 07-28-2022 Blood count complete automated Pamela Pat MD Work Phone: Start: 07-28-2022 Us retroperitoneal r eal time w/image complete Néstor Vale MD Work Phone: Start: 07-28-2022 End: 07-28-2022 TRANSFUSE PLASMA Pamela Pat MD Work Phone: Start: 07-28-2022 End: 07-28-2022 TRANSFUSE PLATELETS Pamela Pat MD Work Phone: Start: 07-28-2022 Prothrombin time Assumdieter Pat MD Work Phone: Start: 07-28-2022 End: 07-28-2022 Transfusion of packed red blood cells Pamela Pat MD Work Phone: Start: 07-28-2022 PREPARE PLATELETS Peter Pat MD Work Phone: Start: 07-28-2022 Basic metabolic pane l calcium total Palm Kavin JENKINS Work Phone: Start: 07-28-2022 Blood count hemoglobin Vianney Obregon MD Work Phone: Start: 07-28-2022 Creatinine other source Nikkie Mancera MD Work Phone: Start: 07-28-2022 Complement antigen e ach component Nikkie Mancera MD Work Phone: Start: 07-28-2022 End: 07-28-2022 Transfusion of packed red blood cells Pamela Pat MD Work Phone: Start: 07-28-2022 ARTERIAL BLOOD GAS, POC Vianney Obregon MD Work Phone: Start: 07-28-2022 Radiologic exam ches t single view Pamela Pat MD Work Phone: Start: 07-28-2022 End: 07-28-2022 CULTURE, BLOOD 1 Pamela Pat MD Work Phone: Start: 07-28-2022 BASIC METABOLIC PANE L W/ REFLEX TO MG FOR LOW K Teresa Rodriguez MD Work Phone: Start: 07-28-2022 End: 07-28-2022 Calcium ionized Teresa Rodriguez MD Work Phone: Start: 07-28-2022 End: 07-28-2022 Hepatic function panel Teresa Rodriguez MD Work Phone: Start: 07-28-2022 TEG GLOBAL HEMOSTASIS A ssumpadarsh Pat MD Work Phone: Start: 07-28-2022 Urnls dip stick/tabl et reagent auto microscopy Teresa Rodriguez MD Work Phone: Start: 07-28-2022 Assay of urine sodium B ayala Rodriguez MD Work Phone: Start: 07-28-2022 End: 07-28-2022 TRANSFUSE PLASMA Teresa Rodriguez MD Work Phone: Start: 07-28-2022 Ecg routine ecg w/le ast 12 lds w/i&r Teresa Rodriguez MD Work Phone: Start: 07-28-2022 End: 07-28-2022 PREPARE PLASMA Teresa Rodriguez MD Work Phone: Start: 07-28-2022 End: 07-28-2022 Transfusion of packed red blood cells Teresa Rodriguez MD Work Phone: Start: 07-28-2022 Blood typing serologic abo Teresa Rodriguez MD Work Phone: Start: 07-28-2022 End: 07-28-2022 Blood count hemoglobin Teresa Rodriguez MD Work Phone: Start: 07-28-2022 Antibody screen Em Peabody II Comment on above: Order Comment: Trans fuse now? Y Number of units to transfuse now? 4 Comment on hold Transfuse now? N Result Comment: PERF ORMED BY: [facility] [address] [place] [address] PATHOLOGIST SCRUBBING MACHINE OPERATOR RADHA PETERSON M.D. Start: 03-14-[address] ETIENNE IN GABINO Comment on above: Performed By: #### [facility] #### [facility] [address] [place] [address] Dr. Flako Candelaria Start: 01-15-2016 General examination of patient Ivan Lloyd Other Bypass of stomach Barby Shirley Colonoscopy Barby Shirley H/O: surgery S/P exploratory laparotomy Intestinal Trans Coord Main Work Phone: H/O: surgery S/P exploratory laparotomy Intestinal Trans Coord Main Work Phone: H/O: surgery S/P exploratory laparotomy Intestinal Trans Coord Main Work Phone: H/O: surgery S/P exploratory laparotomy Intestinal Trans Coord Main Work Phone: H/O: surgery S/P exploratory laparotomy Meryl Berger MD, PhD Work Phone: H/O: surgery S/P exploratory laparotomy Meryl Berger MD, PhD Work Phone: History of hernia repair Na Shirley Procedure on upper arm Barby Shirley Plan of Treatment Date Care Activity Detail Author Start: 05-19-2028 Prostate specific an tigen measurement Prostate Cancer Screening Discussion [facility] Start: 03-14-2027 PROSTATE CANCER SCRE ENING DISCUSSION PROSTATE CANCER SCREENING DISCUSSION [facility] Start: 05-19-2026 Diabetes Screening Diabetes Screenin [facility] Start: 08-28-2025 DIABETES SCREEN DIABETES SCREEN [facility] Start: 08-28-2025 Diabetes Screening Diabetes Screenin g [facility] Start: 08-13-2025 DIABETES SCREEN DIABETES SCREEN [facility] Start: 07-31-2025 DIABETES SCREEN DIABETES SCREEN [facility] Start: 07-29-2025 DIABETES SCREEN DIABETES SCREEN [facility] Start: 05-19-2024 Complete blood count Hemoglobin/Tremayne tocrit [facility] Start: 05-19-2024 Creatinine measurement Serum Creatin ine [facility] Start: 11-13-2023 ambulatory Ambulatory Facility:[facility] Start: 08-29-2023 [facility] Start: 08-29-2023 SERUM CREATININE SERUM CREATININE [facility] Start: 08-14-2023 HEMOGLOBIN/HEMATOCRIT [facility] Start: 08-14-2023 SERUM CREATININE SERUM CREATININE [facility] Start: 08-01-2023 HEMOGLOBIN/HEMATOCRIT [facility] Start: 08-01-2023 SERUM CREATININE SERUM CREATININE [facility] Start: 07-30-2023 HEMOGLOBIN/HEMATOCRIT [facility] Start: 07-30-2023 SERUM CREATININE SERUM CREATININE [facility] Start: 05-18-2023 Advance Directive Discussion Advance Directive Discussion [facility] Start: 05-18-2023 Depression Assessment Depression Ass essment [facility] Start: 04-16-2023 [facility] Start: 03-05-2023 [facility] Start: 03-05-2023 [facility] Start: 02-06-2023 [facility] Start: 02-05-2023 Performance of Urina ry Filtration, Intermittent, Less than 6 Hours Per Day Performance of Urinary Filtration, Intermittent, Less than 6 Hours Per Day [facility] Start: 02-05-2023 Replacement of Left Hip Joint with Ceramic Synthetic Substitute, Cemented, Open Approach Replacement of Left Hip Joint with Ceramic Synthetic Substitute, Cemented, Open Approach [facility] Start: 02-05-2023 Referral to manager perioperative [facility] Start: 02-05-2023 Consultation [facility] Start: 02-05-2023 Hospital admission [facility] Start: 01-22-2023 End: 01-22-2023 [facility] Start: 01-16-2023 Covid-19 Vaccine () Covid-19 Vaccine () [facility] Start: 01-16-2023 Influenza vaccination [facility] Start: 2022 Advance Directive Discussion Advance Directive Discussion [facility] Start: 2022 Pneumococcal Vaccine : 65+ (1 - PCV) Pneumococcal Vaccine: 65+ (1 - PCV) [facility] Start: 09-23-2022 US angiography US map hemodia l access SHERLYN [facility] Start: 09-23-2022 US Unspecified body region [facility] Start: 09-11-2022 [facility] Start: 09-09-2022 Referral to vascular surgeon [facility] Start: 09-08-2022 Hospital admission [facility] Start: 09-08-2022 Referral to manager perioperative [facility] Start: 09-08-2022 Insertion of Infusio n Device into Superior Vena Cava, Percutaneous Approach Insertion of Infusion Device into Superior Vena Cava, Percutaneous Approach [facility] Start: 09-08-2022 Insertion of Tunnele d Vascular Access Device into Chest Subcutaneous Tissue and Fascia, Open Approach Insertion of Tunneled Vascular Access Device into Chest Subcutaneous Tissue and Fascia, Open Approach [facility] Start: 09-08-2022 Performance of Urina ry Filtration, Intermittent, Less than 6 Hours Per Day Performance of Urinary Filtration, Intermittent, Less than 6 Hours Per Day [facility] Start: 09-08-2022 Ultrasonography of Bilateral Upper Extremity Veins Ultrasonography of Bilateral Upper Extremity Veins [facility] Start: 08-28-2022 End: 09-12-2022 CBC W Auto Differential panel - Blood CBC + DIFF Lab STAT SBS (short bowel syndrome) S/P exploratory laparotomy Expected: 08/28/2022 (Approximate), Expires: 09/12/2022 [facility] Work Phone: Comment on above: Expected: 08/28/2022 (Approximate), Expires: 09/12/2022 Start: 08-28-2022 End: 09-12-2022 Comprehensive metabolic 2000 panel - Serum or Plasma COMP METABOLIC PANEL Lab STAT SBS (short bowel syndrome) S/P exploratory laparotomy Expected: 08/28/2022 (Approximate), Expires: 09/12/2022 [facility] Work Phone: Comment on above: Expected: 08/28/2022 (Approximate), Expires: 09/12/2022 Start: 08-28-2022 End: 09-12-2022 Magnesium [Mass/volume] in Serum or Plasma MAGNESIUM BLD Lab STAT SBS (short bowel syndrome) S/P exploratory laparotomy Expected: 08/28/2022 (Approximate), Expires: 09/12/2022 [facility] Work Phone: Comment on above: Expected: 08/28/2022 (Approximate), Expires: 09/12/2022 Start: 08-28-2022 End: 09-12-2022 Phosphate [Mass/volume] in Serum or Plasma PHOSPHORUS INORGANIC Lab STAT SBS (short bowel syndrome) S/P exploratory laparotomy Expected: 08/28/2022 (Approximate), Expires: 09/12/2022 [facility] Work Phone: Comment on above: Expected: 08/28/2022 (Approximate), Expires: 09/12/2022 Start: 07-28-2022 [facility] Start: 07-28-2022 [facility] Start: 07-27-2022 Hospital admission [facility] Start: 07-27-2022 Referral to manager perioperative [facility] Start: 07-27-2022 [facility] Start: 05-18-2022 DEPRESSION ASSESSMENT DEPRESSION ASS ESSMENT [facility] Start: 04-14-2022 COVID-19 Vaccine (3 - Booster for Moderna series) COVID-19 Vaccine (3 - Booster for Moderna series) [facility] Start: 04-14-2022 Covid-19 Vaccine (3 - Moderna series) Covid-19 Vaccine (3 - Moderna series) [facility] Start: 01-16-2022 Influenza vaccination INFLUENZA (#1) [facility] Start: 2017 RSV Vaccine (1 - 1-d ose 60+ series) RSV Vaccine (1 - 1-dose 60+ series) [facility] Start: 12-24-2012 Screening for malign ant neoplasm of colon [facility] Start: 12-06-2007 Shingles vaccine (1 of 2) Diaz gles vaccine (1 of 2) [facility] Start: 12-06-2007 SHINGRIX VACCINE (1 of 2) DIAZ GRIX VACCINE (1 of 2) [facility] Start: 2002 COLOGUARD (FIT-DNA) COLOGUARD (FIT-D NA) [facility] Start: 2002 Colonoscopy COLONOSCOPY [facility] Start: 2002 COLORECTAL CANCER SCREENING COLORECTAL CANCER SCREENING [facility] Start: [address]GR[address] [facility] Start: 2002 FECAL OCCULT BLOOD FECAL OCCULT BLOO D [facility] Start: 2002 Screening for malign ant neoplasm of colon [facility] Start: 2002 SIGMOIDOSCOPY SIGMOIDOSCOPY [facility] Start: 1997 Lipid panel Lipids [facility] Start: 1992 Diabetes screen Diabetes screen [facility] Start: 1992 Lipid 1996 panel - S franky or Plasma Lipid Screening [facility] Start: 1992 Lipid panel Lipid Screening [facility] Start: 1992 LIPID SCREEN LIPID SCREEN [facility] Start: 1976 DTaP/Tdap/Td vaccine (1 - Tdap) DTaP/Tdap/Td vaccine (1 - Tdap) [facility] Start: 1976 Urine microalbumin profile [facility] Start: 12-06-1975 ANNUAL PCP TEAM SHIFT STACKER NEREIDA DISEASE VISIT ANNUAL PCP TEAM CHRONIC DISEASE VISIT [facility] Start: 12-06-1975 HEPATITIS C SCREENING HEPATITIS C SC SARI [facility] Start: 12-06-1975 HIV SCREENING HIV SCREENING [facility] Start: 1972 HIV screening HIV screen [facility] Start: 1969 Depression Screen Depression Screen [facility] Start: 06-07-1958 COVID-19 VACCINE (#1) COVID-19 VACCI NE (#1) [facility] End: 07-28-2022 KIRK Screen with Reflex [employer] Phone: Comment on above: One Time for 1 Occur rences starting 07/28/2022 until 07/28/2022 End: 07-29-2022 Basic metabolic 2000 panel - Serum or Plasma Basic Metabolic Panel Lab Routine Every 8 Hours (Lab) for 3 Occurrences starting 07/28/2022 until 07/29/2022, 2 completed [employer] Phone: Comment on above: Every 8 Hours (Lab) for 3 Occurrences starting 07/28/2022 until 07/29/2022, 2 completed End: 07-30-2022 Basic Metabolic Panel w/ Reflex to MG Basic Metabolic Panel w/ Reflex to MG Lab Routine Daily for 3 Days starting 07/28/2022 until 07/30/2022 [employer] Phone: Comment on above: Daily for 3 Days sta rting 07/28/2022 until 07/30/2022 End: 07-28-2022 Blood Bank Specimen [employer] Phone: Comment on above: Once for 1 Occurrenc es starting 07/28/2022 until 07/28/2022 End: 07-28-2022 BLOOD GAS, ARTERIAL BLOOD GAS, ARTERIAL Lab STAT One Time for 1 Occurrences starting 07/28/2022 until 07/28/2022 [employer] Phone: Comment on above: One Time for 1 Occur rences starting 07/28/2022 until 07/28/2022 End: 07-28-2022 CBC panel - Blood by Automated count CBC Lab Routine Post Transfusion Post Transfusion Post Transfustion for 1 Occurrences starting 07/28/2022 until 07/28/2022 [employer] Phone: Comment on above: Post Transfusion Pos t Transfusion Post Transfustion for 1 Occurrences starting 07/28/2022 until 07/28/2022 End: 07-30-2022 CBC W Auto Differential panel - Blood CBC with Auto Differential Lab Routine Daily for 3 Days starting 07/28/2022 until 07/30/2022, 1 completed [employer] Phone: Comment on above: Daily for 3 Days sta rting 07/28/2022 until 07/30/2022, 1 completed Culture, Blood 1 Culture, Blood 1 Microbiology STAT 07/28/2022 10:23 AM EDT [employer] Phone: Culture, Blood 1 Culture, Blood 1 Microbiology STAT 07/28/2022 10:33 AM EDT [employer] Phone: End: 07-28-2022 Culture, Urine [employer] Phone: Comment on above: One Time for 1 Occur rences starting 07/28/2022 until 07/28/2022 EKG 12 lead EKG 12 lead ECG Routine 07/28/2022 7:40 AM EDT [employer] Phone: End: 08-02-2022 Hemoglobin and Hematocrit Hemoglobin and Hematocrit Lab Routine Every 4 Hours (Lab) for 29 Occurrences starting 07/29/2022 until 08/02/2022 [employer] Phone: Comment on above: Every 4 Hours (Lab) for 29 Occurrences starting 07/29/2022 until 08/02/2022 End: 07-28-2022 Immunofixation serum profile [employer] Phone: Comment on above: One Time for 1 Occur rences starting 07/28/2022 until 07/28/2022 End: 07-31-2022 Lactate [Moles/volume] in Serum or Plasma Lactic Acid Lab Routine Every 12 hours (Lab) for 3 Days starting 07/29/2022 until 07/31/2022 [employer] Phone: Comment on above: Every 12 hours (Lab) for 3 Days starting 07/29/2022 until 07/31/2022 End: 07-28-2022 MRSA DNA Probe, Nasal [employer] Phone: Comment on above: One Time for 1 Occur rences starting 07/28/2022 until 07/28/2022 Oxygen therapy [[facility] Data Set] Initiate Oxygen Therapy Protocol Respiratory Care Routine As Needed until discontinued starting 07/28/2022 [employer] Phone: Comment on above: As Needed until disc ontinued starting 07/28/2022 Patient Education [facility] Work Phone: Patient referral [facility] Work Phone: PREPARE PLASMA, 1 Units PREPARE PLASMA, 1 Units Blood Bank Routine 07/28/2022 7:00 AM EDT [facility] Work Phone: PREPARE PLASMA, 1 Units PREPARE PLASMA, 1 Units Blood Bank STAT 07/28/2022 4:30 PM EDT [facility] Work Phone: PREPARE PLASMA, 1 Units PREPARE PLASMA, 1 Units Blood Bank Routine 07/28/2022 9:00 PM EDT [facility] Work Phone: PREPARE PLATELETS, 1 Product PREPARE PLATELETS, 1 Product Blood Bank STAT 07/28/2022 4:30 PM EDT [facility] Work Phone: PREPARE PLATELETS, 1 Product PREPARE PLATELETS, 1 Product Blood Bank Routine 07/28/2022 10:45 PM EDT [facility] Work Phone: End: 07-28-2022 PREVIOUS SPECIMEN [employer] Phone: Comment on above: Once for 1 Occurrenc es starting 07/28/2022 until 07/28/2022 End: 07-29-2022 Protime-INR Protime-INR Lab Routine Tomorrow AM for 1 Occurrences starting 07/29/2022 until 07/29/2022 [employer] Phone: Comment on above: Tomorrow AM for 1 Oc currences starting 07/29/2022 until 07/29/2022 End: 07-28-2022 Respiratory care evaluation only Respiratory care evaluation only Respiratory Care Routine One Time for 1 Occurrences starting 07/28/2022 until 07/28/2022 [employer] Phone: Comment on above: One Time for 1 Occur rences starting 07/28/2022 until 07/28/2022 Surgical Pathology Surgical Path ology Lab Routine Melena Release Upon Ordering for 1 Occurrences starting 07/28/2022 [employer] Phone: Comment on above: Release Upon Orderin g for 1 Occurrences starting 07/28/2022 End: 07-28-2022 SURGICAL PATHOLOGY REPORT SURGICAL PATHOLOGY REPORT Lab Routine Once for 1 Occurrences starting 07/28/2022 until 07/28/2022 [employer] Phone: Comment on above: Once for 1 Occurrenc es starting 07/28/2022 until 07/28/2022 End: 07-29-2022 TEG Global Hemostasis with Lysis [employer] Phone: Comment on above: One Time for 1 Occur rences starting 07/29/2022 until 07/29/2022 TYPE AND SCREEN TYPE AND SCREEN Blood Bank Routine 07/28/2022 5:59 AM EDT [employer] Phone: [facility] Immunization Date Immunization Notes Care Provider Mckenzie graves 02-12-2023 Prevnar 20 Ivan Lloyd Other [facility] 02-17-2022 COVID-19, mRNA, LNP- S, PF, 100 mcg or 50 mcg dose Barby Lue [facility] Comment on above: Reason for Medicatio n: Prophylaxis 02-17-2022 influenza virus vaccine, unspecified formulation Barby Lue [facility] Comment on above: Reason for Medicatio n: Prophylaxis 02-17-2022 influenza nasal, unspecified formulation Nurse So Work Phone: [facility] 04-01-2021 COVID-19, mRNA, LNP- S, PF, 100 mcg or 50 mcg dose Barby Lue [facility] 02-27-2021 influenza nasal, unspecified formulation Nurse So Work Phone: [facility] 02-27-2021 influenza virus vaccine, unspecified formulation Barby Lue [facility] Comment on above: Reason for Medicatio n: Prophylaxis 07-13-2020 SARS-CoV-2 (COVID-19 ) mRNA BNT-162b2 vax Barby Lue [facility] 06-21-2020 SARS-CoV-2 (COVID-19 ) mRNA-1273 vaccine Barby Lue [facility] 05-24-2020 SARS-CoV-2 (COVID-19 ) mRNA-1273 vaccine Barby Lue [facility] 02-23-2020 influenza virus vaccine, split virus (incl. purified surface antigen) Ivan Lloyd Other [facility] 10-17-2019 COVID-19 mRNA Bivale nt Booster (Moderna) DO Ivan Lloyd Work Phone: [facility] Payers Date Payer Category Payer Medicare [id number] 2022 Medicare [id number] 2022 Medicare MEDICARE MEDICAR E A AND B [id number] 2022-Present [phone] [facility] [place] [address] Medicare [id number] 2022 Unknown [id number] 2022 Self-pay 2019 Unknown [id number] 1959 Unknown [id number] 1957 Unknown [id number] 1957 Unknown [id number] 1957 Unknown [id number] 1957 Unknown [id number] 1957 Unknown [id number] 1957 Unknown [id number] 1957 Unknown [id number] 2.16.840.1.890364.3.579.2.727 1955 Unknown [id number] 2.16.840.1.579347.3.579.2.727 1955 Unknown [id number] 2.16.840.1.312655.3.579.2.727 1955 Unknown [id number] 2.16.840.1.667980.3.579.2.727 1955 Unknown [id number] 2.16.840.1.055363.3.579.2.72 1955 Unknown [id number] 2.16.840.1.119365.3.579.2.72 1955 Unknown [id number] 2.16.840.1.766655.3.579.2. 1955 Unknown [id number] 2.16.840.1.207190.3.579.2.72 1955 Unknown [id number] 2.16.840.1.803133.3.579.2. 1955 Unknown [id number] 2.16.840.1.876553.3.579.2. 1955 Unknown [id number] 2.840.1.667930.3.579.. Unknown [facility] Access [id number] Unknown [id number] 2.16.840.1.677798.3.579.2.531 Unknown [id number] 2.16.840.1.262524.3.579.2.531 Unknown [id number] 2.16.840.1.899979.3.579.2.531 Unknown [id number] 2.16.840.1.158313.3.579.2.531 Unknown [id number] 2.16.840.1.588242.3.579.2.531 Unknown [id number] 2.16.840.1.668054.3.579.2.531 Unknown [id number] 2.16.840.1.299373.3.579.2.531 Unknown [id number] 2.16.840.1.013281.3.579.2.531 Unknown [id number] 2.16.840.1.745788.3.579.2.531 Unknown [id number] 2.16.840.1.587001.3.579.2.531 Social History Date Type Detail Facility Start: 07-27-2022 End: 07-16-2023 Tobacco smoking status NHIS Never smoked tobacco (finding) [facility] Start: 1955 Sex Assigned At Male F [facility] Start: 02-10-2013 Tobacco use and exposure Smokeless tobacco non-user [employer] Work Phone: Start: 07-28-2022 Alcohol intake Current non-dr admission discharge rn of alcohol (finding) [employer] Phone: Start: 1955 Sex Assigned At Not on file [facility] [employer] Phone: Tobacco smoking status WVIS Tobacco smoking consumption unknown [facility] Work Phone: Start: 09-23-2022 Sex Assigned At Male F [facility] Tobacco smoking status Never [facility] Start: 09-23-2022 History of Social function [facility] Start: 08-20-2022 Gender identity Identifies as male gender (finding) [facility] Medical Equipment Procedure Code Equipment Code Equipment Origin al Text Equipment Identifier Dates Fluoroscopic guidance for insertion of tunnelled dialysis catheter Double-lumen haemodialysis catheter, implantable +[id number] FDA Start: 09-10-2022 Creation or revision of arteriovenous fistula Synthetic vascular graft ()[id number] FDA Start: 03-05-2023 Arthroplasty, hip, total, anterior approach Acetabular shell ()[id number] FDA Start: 02-05-2023 Arthroplasty, hip, total, anterior approach Orthopaedic bone screw, non-bioabsorbable, sterile ()[id number] FDA Start: 02-05-2023 Arthroplasty, hip, total, anterior approach Orthopaedic bone screw, non-bioabsorbable, sterile ()[id number] FDA Start: 02-05-2023 Arthroplasty, hip, total, anterior approach Ceramic femoral head prosthesis ()[id number] FDA Start: 02-05-2023 Arthroplasty, hip, total, anterior approach Uncoated hip femur prosthesis, modular ()[id number] FDA Start: 02-05-2023 Arthroplasty, hip, total, anterior approach Polymer orthopaedic cement restrictor, non-bioabsorbable, sterile ()[id number] FDA Start: 02-05-2023 Arthroplasty, hip, total, anterior approach Non-constrained polyethylene acetabular liner ()[id number] FDA Start: 02-05-2023 Goals Date Patient Goal Desired Activity /State Functional Status Date Assessment Result Facility 07-16-2023 Functional Status No [facility] 03-10-2023 Functional Status N/A [facility] 02-06-2023 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 09-11-2022 Functional status Patient at [facility] Work Phone: 07-27-2022 Functional status Patient at [facility] Work Phone: Mental Status Date Assessment Result Facility 02-06-2023 Cognitive function Cognitive Sta tus Patient at [facility] Work Phone: 09-11-2022 Cognitive function Cognitive Sta tus Patient at Baseline [facility] Work Phone: 07-27-2022 Cognitive function Cognitive Sta tus Patient at Baseline [facility] Work Phone: Clinical Notes 07-27-2022 to 07-22-2023 Fatuma Joaquin, Nuclear Tech - 07/14/2023 10:00 AM Angel Bryant, DONNA - 07/14/2023 10:00 AM Tanika Suárez RN - 06/23/2023 1:05 PM EST Note Date & Type Note Facility 07-22-2023 Note [id number] [facility] 07-14-2023 History of Present illness Narrative RADIOLOGY SERVICE PROGRESS NOTE SERVICE DATE: 07/14/2023 SERVICE TIME: 9:53 AM PATIENT IDENTITY VERIFICATION COMPLETED USING TWO (2) STANDARD IDENTIFIERS: Name and Date of confirmed by patient verbally FALL SCREENING: Has the patient had 2 falls in the last year or 1 fall with injury or currently using an Ambulatory Assistive Device (Walker, Cane, Wheelchair, Crutches, etc.)? Yes, Patient High Risk for Falls What interventions were put in place to prevent falls during this visit? 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 This equation utilizes serum creatinine, sex, and age as parameters. The creatinine assay has traceable calibration to isotope dilution-mass spectrometry. Refer to KDIGO guidelines for clinical interpretation. In patients with unstable renal function, e.g. those with acute kidney injury, the eGFR may not accurately reflect actual GFR. P.O.C.T. RESULTS: N/A July 14, [address] PERFORMED: No IV SITE: Ambulatory: A peripheral IV was started in the Right hand with a Angio cath: 22 gauge. POST EXAM PIV STATUS: Discontinued PROCEDURE TYPE: NM Stress: 13.8mCi [id number] was administered IV for Rest Imaging at 1010 by Theresa Benjamin Rivono. 35.6 mCi [id number] was administered IV for Stress Imaging at 11:09 by Yessi Varela. ADMINISTRATION TIME: PATIENT DISCHARGED TO: Ambulatory patient, left NM department area. A Diagnostic radioactive procedure has taken place, with no further precautions necessary other than routine body substance precautions. More information regarding radiation safety can be found using this link: [email or web address] [email or web address] SIGNATURE: Yessi Varela PATIENT NAME: Mele Sky DATE: July 14, 2023 TIME: 9:53 AM PAGER/CONTACT #: documented in this encounter [facility] 07-14-2023 Nurse Note Regadenoson double checked with CARLOS Varela Regadenoson 0.4mg/5mL given IV push over 10 seconds, followed by saline flush and radiopharmaceutical. LOT#: [id number] Expiration: 05/18/2026 documented in this encounter [facility] 06-23-2023 Nurse Note Here for EKG for Dr. Paz. Sinus rhythm, rate 68. Results in Epic. documented in this encounter [facility] 06-15-2023 Evaluation note Encounter Date Diagnosis Assessment Notes May, Medicare annual wellness visit, initial (ICD-10 - Z00.00) Personalized health advice was given to the beneficiary including a written plan for screenings discussed and provided. Advanced care planning reviewed and/or information given as requested. Additional counseling was provided here today in regards to, [ ]. The above visit was performed by [ ], under direct supervision of [ ]. Document reviewed and amended by provider signed below. May, End stage renal disease (ICD-10 - N18.6) The patient is instructed on adequate control of hypertension and diabetes, if appropriate. They are also educated on the associated risks of NSAIDs and PPI use with kidney disease. They were instructed on adequate fluid balance and to avoid dehydration. Contemplating home hemodialysis. Being evaluated for renal transplant. May, Benign prostatic hyperplasia with lower urinary tract symptoms (ICD-10 - N40.1) Symptoms tolerable Continue Tamsulosin He denies dysuria or hematuria. f/u for ANKIT and PSA May, Hesitancy of micturition (ICD-10 - R39.11) May, Dependence on renal dialysis (ICD-10 - Z99.2) Continue Hemodialysis 3x weekly. Review labs monthly. f/u Nephrology clinic May, Gastroesophageal reflux disease with esophagitis without hemorrhage (ICD-10 - K21.00) Avoid lying flat after eating. Avoid eating 2 hours prior to bedtime. Smaller, frequent meals may be better tolerated.Weig ht loss if overweight.PPI with any heartburn.Marylin tor for dysphagia. May, Anemia in chronic kidney disease (ICD-10 - D63.1) Continue to monitor CBC, Ferritin. Receiving IV Fe and Aranesp w/ dialysis May, Screening PSA (prostate specific antigen) (ICD-10 - Z12.5) Yearly ANKIT and PSA Denies dysuria and hematuria f/u May, Screening for colon cancer (ICD-10 - Z12.11) [employer] [facility] Evaluation note* Encounter Date Diagnosis Assessment Notes Treatment Notes Treatment Clinical Notes Apr, History of total left hip arthroplasty (ICD-10 - Z96.642) Apr, Aftercare following joint replacement surgery (ICD-10 - Z47.1) Apr, Presence of left artificial hip joint (ICD-10 - Z96.642) Apr, Other [facility] [place] [facility] [place]23 Doing well Discussed post-op dental prophylaxis. Shared decision made to continue prophylactic antibiotics indefinitely. Follow-up at 1 year post-op for repeat examination and repeat x-rays. Patient instructed to call with any questions or concerns. [employer] Other 11-28-2023 Evaluation note* Encounter Date Diagnosis Assessment Notes Treatment Notes Treatment Clinical Notes Mar, End stage renal disease (ICD-10 - N18.6) Mar, Dependence on renal dialysis (ICD-10 - Z99.2) Mar, Other End-stage renal disease I will have his catheter removed in the special procedures room rather than here in the arm close because the cuff is quite distant from the exit site. I explained that to the patient he understands and agrees. It will still be performed under local anesthesia. [employer] Other 11-01-2023 Evaluation note* Encounter Date Diagnosis Assessment Notes Treatment Notes Treatment Clinical Notes Mar, History of total left hip arthroplasty (ICD-10 - Z96.642) Continue with left total hip protocol. Order provided for outpatient physical therapy. Patient to continue off work until next visit. All questions and concerns addressed. Contact office with any questions or concerns Examination and assessment of this patient was performed by Jenny Chau NP and patient will continue with the treatment plan per Dr. Melissa, who initiated this treatment plan. Dr. Street is present in the office today and providing supervision. [employer] Other 10-31-2023 Evaluation note* Encounter Date Diagnosis Assessment Notes Treatment Notes Treatment Clinical Notes Feb, End stage renal disease (ICD-10 - N18.6) Feb, Dependence on renal dialysis (ICD-10 - Z99.2) Feb, Other End-stage renal disease We will begin accessing his graft on March 30. I believe that will be easily usable. I will have him back in the office on April 14 for catheter removal. [facility] [employer] Other 10-24-2023 Hospital Discharge instructions Patient Education 03/10/2023 13:36:48 Benign Prostatic Hyperplasia Benign Prostatic Hyperplasia Benign prostatic hyperplasia (BPH) is an enlarged prostate gland that is caused by the normal agingprocess. The prostate may get bigger as a man gets older. The condition is not caused by cancer. The prostate is a walnut-sized gland that is involved in the production of semen. It is located in front of the rectum and below the bladder. The bladder stores urine. The urethra carries stored urine ou t of the body. An enlarged prostate can press on the urethra. This can make it harder to pass urine. The buildup of urine in the bladder can cause infection. Back pressure and infection may progress to bladder damage and kidney (renal) failure. What are the causes? This condition is part of the normal aging process. However, not all men develop problems from thiscondition. If the prostate enlarges away from the urethra, urine flow will not be blocked. If it enlarges toward the urethra and compresses it, there will be problems passing urine. What increases the risk? This condition is more likely to develop in men older than 50 years. What are the signs or symptoms? Symptoms of this condition include: Getting up often during the night to urinate. Needing to urinate frequently during the day. Difficulty starting urine flow. Decrease in size and strength of your urine stream. Leaking (dribbling) after urinating. Inability to pass urine. This needs immediate treatment. Inability to completely empty your bladder. Pain when you pass urine. This is more common if there is also an infection. Urinary tract infection (UTI). How is this diagnosed? This condition is diagnosed based on your medical history, a physical exam, and your symptoms. Tests will also be done, such as: A post-void bladder scan. This measures any amount of urine that may remain in your bladder after you finish urinating. A digital rectal exam. In a rectal exam, your health care provider checks your prostate by putting a lubricated, gloved finger into your rectum to feel the back of your prostate gland. This exam detects the size of your gland and any abnormal lumps or growths. An exam of your urine (urinalysis). A prostate specific antigen (PSA) screening. This is a blood test used to screen for prostate cancer. An ultrasound. This test uses sound waves to electronically produce a picture of your prostate gland. Your health care provider may refer you to a specialist in kidney and prostate diseases (urologist). How is this treated? Once symptoms begin, your health care provider will monitor your condition (active surveillance or watchful waiting). Treatment for this condition will depend on the severity of your condition. Treatment may include: Observation and yearly exams. This may be the only treatment needed if your condition and symptoms are mild. Medicines to relieve your symptoms, including: ?Medicines to shrink the prostate. ?Medicines to relax the muscle of the prostate. Surgery in severe cases. Surgery may include: ?Prostatectomy. In this procedure, the prostate tissue is removed completely through an open incision or with a laparoscope or robotics. ?Transurethral resection of the prostate (TURP). In this procedure, a tool is inserted through the opening at the tip of the penis (urethra). It is used to cut away tissue of the inner core of the prostate. The pieces are removed through the same opening of the penis. This removes the blockage. ?Transurethral incision (TUIP). In this procedure, small cuts are made in the prostate. This lessens the prostate's pressure on the urethra. ?Transurethral microwave thermotherapy (TUMT). This procedure uses microwaves to create heat. The heat destroys and removes a small amount of prostate tissue. ?Transurethral needle ablation (TUNA). This procedure uses radio frequencies to destroy and remove a small amount of prostate tissue. ?Interstitial laser coagulation (ILC). This procedure uses a laser to destroy and remove a small amount of prostate tissue. ?Transurethral electrovaporization (TUVP). This procedure uses electrodes to destroy and remove a small amount of prostate tissue. ?Prostatic urethral lift. This procedure inserts an implant to push the lobes of the prostate away from the urethra. Follow these instructions at home: Take dylp-xma-kfnyiod and prescription medicines only as told by your health care provider. Monitor your symptoms for any changes. Contact your health care provider with any changes. Avoid drinking large amounts of liquid before going to bed or out in public. Avoid or reduce how much caffeine or alcohol you drink. Give yourself time when you urinate. Keep all follow-up visits. This is important. Contact a health care provider if: You have unexplained back pain. Your symptoms do not get better with treatment. You develop side effects from the medicine you are taking. Your urine becomes very dark or has a bad smell. Your lower abdomen becomes distended and you have trouble passing urine. Get help right away if: You have a fever or chills. You suddenly cannot urinate. You feel light-headed or very dizzy, or you faint. There are large amounts of blood or clots in your urine. Your urinary problems become hard to manage. You develop moderate to severe low back or flank pain. The flank is the side of your body between the ribs and the hip. These symptoms may be an emergency. Get help right away. Call 911. Do not wait to see if the symptoms will go away. Do not drive yourself to the hospital. Summary Benign prostatic hyperplasia (BPH) is an enlarged prostate that is caused by the normal aging process. It is not caused by cancer. An enlarged prostate can press on the urethra. This can make it hard to pass urine. This condition is more likely to develop in men older than 50 years. Get help right away if you suddenly cannot urinate. This information is not intended to replace advice given to you by your health care provider. Make sure you discuss any questions you have with your health care provider. Document Revised: 11/20/2021 Document Reviewed: 11/20/2021 [employer] Patient Education 2022 [employer] Follow Up Care 01/29/2023 11:47:45 With:Barby Shirley MD, URL, URO Address: [address] [place] [place] [phone] When: Unknown Comments:f/u in October 2023 w/ [facility] 10-04-2023 Evaluation note* Encounter Date Diagnosis Assessment Notes Treatment Notes Treatment Clinical Notes Feb, History of total left hip arthroplasty (ICD-10 - Z96.642) Zipline removed from left anterior hip incision, Steri-Strips applied. Instructed patient may shower but should refrain from soaking in a bathtub swimming pool hot tub. Continue with total hip protocol. Offered patient an outpatient physical therapy order but he denied it stating I feel like I can handle this myself . All questions and concerns addressed. Patient will follow-up with Dr. Melissa in 1 month with x-ray. Instructed patient to call office for any questions or concerns. [employer] Other 10-03-2023 Evaluation note* Encounter Date Diagnosis Assessment Notes Treatment Notes Treatment Clinical Notes Feb, End stage renal disease (ICD-10 - N18.6) Feb, Dependence on renal dialysis (ICD-10 - Z99.2) Feb, Other End-stage renal disease We will attempt placement of a left upper arm prosthetic graft. He is on low-dose Eliquis at this time but that should not be a problem for us. I talked with him about timing of the procedure given his recent hip fracture. He wishes to proceed so that he does not miss additional time from work. [employer] Other 09-28-2023 Evaluation note* Encounter Date Diagnosis Assessment Notes Treatment Notes Treatment Clinical Notes Jan, Acute blood loss anemia (ICD-10 - D62) Receiving IV Fe during dialysis as well as [facility] monitoring H/H. Jan, End stage renal disease (ICD-10 - N18.6) The patient is instructed on adequate control of hypertension and diabetes, if appropriate. They are also educated on the associated risks of NSAIDs and PPI use with kidney disease. They were instructed on adequate fluid balance and to avoid dehydration. Jan, Acute superficial gastritis with hemorrhage (ICD-10 - K29.01) EGD completed w/ gastritis found w/o dysplasia. Prescribed PPI bid. No s/s bleeding, instructed to monitor for abdominal pain, heartburn, N/V, hematemesis, melena or hematochezia. Jan, Closed fracture of left hip with routine healing, subsequent encounter (ICD-10 - S72.002D) s/p AMANDEEP w/o complications. f/u Orthopedics. Monitor output w/ drain Continue therapy Jan, Benign prostatic hyperplasia with lower urinary tract symptoms (ICD-10 - N40.1) Symptoms tolerable f/u Jan, Hesitancy of micturition (ICD-10 - R39.11) Continue FLomax and f/u Jan, Dependence on renal dialysis (ICD-10 - Z99.2) M/W/F dialysis Monitor weight closely. Gain body weight, prompting adjustments of dry weight. [employer] Other 09-27-2023 [place] [id number] Discharge summary Author Erin Anderson [facility] February 06, 2023 6:48pm Note Date/Time February 06, 2023 2:21pm [facility] [address] [place] [address] Discharge Summary Signed Patient: Mele Sky MR#: [id number] : 1955 Acct:[id number] Age/Sex: 67 / M Adm Date: 3 Loc: Room: [address] [place] [address]: Erin Anderson MD Copies to: DO Erin Kc MD~ Providers Date of Discharge: 02/06/23 Discharging Provider: Erin Anderson Primary Care Provider: Ivan Lloyd Consults: * Em Melissa MD; Orthopedic Surgery * He Fam MD; Nephrology * Physical and Occupational Therapy Discharge Diagnosis (1) ESRD on hemodialysis: (2) Closed subcapital fracture of neck of left femur: Final Diagnosis Final Discharge Diagnosis: As Above Summary Hospital Course Hospital course: Mr. Sky is a pleasant 67M with PMH of ESRD on HD, Gastric Bypass (~ 20y ago with Post Op PE) who presented with left hip pain to [place] ED and transferred for the evaluation and treatment of suspected left hip fracture Closed left displaced subcapital femoral neck fracture The patient reported falling around two weeks before admission. [facility] and no Fracture was found on the CT scan. 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 While at work he felt a pop in the lefthip followed by significant pain. [place] [facility] CT reported Acute comminuted subcapital fracture of the proximal left femur. Vit D wnl He underwent Left total hip arthroplasty and Negative pressure wound therapy . Pain is better after surgery. PT/OT recommended home with [facility]. the patient was cleared to be discharged by orthopedic surgery He received Perioperative antibiotics with IV Ancef and then 7 days of Duricef. He is to receive DVT prophylaxis with Eliquis 2.5 mg BID for 35 days . Vitamin Cand iron supplement will be provided ESRD Nephrology was consulted for the management of dialysis and ESRD complication * During the patient's stay, all other chronic conditions remained stable unlessotherwise noted above. I have personally seen and examined the patient on the date of this note. The patient's condition has stabilized and shown improvement.Consequently, the decision has been made to discharge the patient to continue treatment on an outpatient basis. Both verbal and written discharge instructionswill be provided to ensure a smooth transition and continuity of care. Time Spent with Patient Time spent providing/coordinating discharge services (# min): 35 Surgeries and Procedures * 02/05/23 Total Hip Arthroplasty Anterior Approach(Left) - Em Melissa II, MD Diagnostic Studies Completed and Pending Studies Labs on day of discharge: 02/06/23 05:39: PHA Creatinine Clear 13.43, Sodium 135 L, Potassium 4.0, Chloride 102, Carbon Dioxide 25.6, Anion Gap 11.4, BUN 42 H, Creatinine 6.02 H D, Est GFR (CKD-EPI) 9.689, Glucose 115 H, Calcium 7.9 L D 02/06/23 05:39: Corrected WBC 8.6, Uncorrected WBC Count 8.6, RBC 3.10 L, Hgb 10.2 L, Hct 30.0 L, MCV 96.9, MCH 32.8, MCHC 33.8, RDW 16.0 H, Plt Count 159, MPV 6.9, Neut % (Auto) 88.4, Lymph % (Auto) 5.4, Imperial % (Auto) 6.1, Eos % (Auto)0.0, Baso % (Auto) 0.1, Nucleat RBC Rel Count 0.0, Neut # (Auto) 7.6, Lymph # (Auto) 0.5 L, Imperial # (Auto) 0.5, Eos # (Auto) 0.0, Baso # (Auto) 0.0 02/05/23 14:36: Blood Type B Positive, Antibody Screen Negative 02/05/23 04:29: 25-OH Vitamin D Total 48.6 Exam Physical Exam Narrative: BP: 102/60; Pulse: 89; Temp: 36.3C; RR: 16; SpO2: 97% [On RA] GENERAL: NAD, Cooperative LUNGS: CTA CV: nl S1 S2 ; no M/R/G ABDOMEN: Abdomen soft, non-tender. EXTREMITIES: No calf muscle tenderness NEURO: No focal neurological deficits. Discharge Plan Discharge Plan Patient Disposition: [place] [facility] [place]: Other Comment: WBAT Diet: Renal Additional Instructions: Home Health to manage care: - Full code - PT/OT eval and treat - Routine vital signs - Medication management and education - Maintain Prevena wound care per Orthopedic Surgery - reinforce Prevena as needed - WBAT For Pain - For mild pain and fever, you can use [id number] Tylenol (500 mg). One totwo tablets may be taken every 6 hours as needed. - For severe pain, the prescribed opioid pain medication should be taken as directed (never drive while taking opioid pain medication. Also, opioid pain medication can cause constipation, for which you can use [id number] laxative). Instructions: Femur Fracture (DC) Prescriptions: New cefadroxil 500 mg Capsule 500 mg PO BID 7 Days Qty: 14 0RF ascorbic acid (vitamin C) [Vitamin C] 500 mg Tablet 500 mg PO BID.WITH.MEALS Qty: 60 0RF ferrous sulfate 324 mg (65 mg iron) Tablet,Delayed Release (Dr/Ec) 324 mg PO BID.WITH.MEALS Qty: 30 0RF oxycodone-acetaminophen [Percocet] 5-325 mg tablet 1 tab PO Q6H PRN (Reason: pain (scale score 7-10)) 6 Days Qty: 20 0RF Eliquis 2.5 mg tablet 2.5 mg PO BID 35 Days Qty: 70 0RF Continued pantoprazole 40 mg Tablet,Delayed Release (Dr/Ec) 40 mg PO BID multivitamin Tablet 1 tab PO DAILY tamsulosin 0.4 mg Capsule 0.4 mg PO DAILY 30 Days Qty: 30 0RF calcium acetate 667 mg tablet 667 mg PO TID Qty: 90 0RF furosemide 40 mg tablet 40 mg PO DAILY Patient Comments: TAKE ONE TABLET BY MOUTH ONCE DAILY paricalcitol [Zemplar] 2 mcg/mL Solution 6 mcg IV 3XW cholecalciferol (vitamin D3) 10 mcg (400 unit) Capsule 200 unit PO DAILY Aranesp (in polysorbate) 25 mcg/mL Solution 25 mcg SUBCUT QWEEK Other Ambulatory Orders: Initiate Home Health (Routine) Timeframe: 1 Day Location: Determined by Patient Ordered By: Em Melissa II Follow Up: Ivan Lloyd DO [Primary Care Provider] - 02/12/23 10:15 am (Follow-up with your Primary Care Provider, call office to reschedule if needed. ) Em Melissa II, MD [Active Staff] - (Office is currently closed. Call office on Thursday to schedule follow-up with Orthopedic Surgery in 1-2 weeks. ) Documented By: Erin Anderson MD 02/06/23 1416 Signed By: <Electronically signed by Erin Anderson MD> 02/06/23 [facility] Work Phone: 1(921) 712-406609-22-2023 Progress note Author Em Melissa [facility] February 06, 2023 8:25am Note Date/Time February 06, 2023 8:26am [facility] [address] [place] [address] Orthopedic Progress Note Signed Patient: Mele Sky MR#: [id number] : 1955 Acct:[id number] Age/Sex: 67 / M Adm Date: 3 Loc: Room: [address] [place] [address] Type: ADM IN Attending Dr: Erin Anderson MD Copies to: ~ Date of Service: 02/06/2023 Subjective Subjective Interval History: Patient resting comfortably in bed this morning. He reports his pain is drastically improved compared to yesterday. Nursing reports no acute events overnight. Denies chest pain, shortness of breath, or calf pain. Exam Physical Exam Vital Signs: Temp Pulse Resp BP Pulse Ox O2 Del Method O2 Flow Rate 98.4 F 75 18 106/66 98 Room Air 8 02/05/23 22:58 02/06/23 04:28 02/06/23 04:28 02/06/23 04:28 02/06/23 04:28 02/06/23 04:28 02/05/23 20:52 Narrative: Left hip Prevena dressing is on and working. No drainage in the container. Foot is warm and well-perfused. Sensation intact to light touch throughout the foot. Wiggles their toes and moves their ankle up and down. Nontender to palpation in the calf. Objective Labs Labs: Laboratory Results - last 24 hr 02/05/23 02/05/23 02/05/23 04:29 04:29 14:36 Corrected WBC Uncorrected WBC Count RBC Hgb Hct MCV MCH MCHC RDW Plt Count MPV Neut % (Auto) Lymph % (Auto) Imperial % (Auto) Eos % (Auto) Baso % (Auto) Nucleat RBC Rel Count Neut # (Auto) Lymph # (Auto) Imperial # (Auto) Eos # (Auto) Baso # (Auto) PHA Creatinine Clear Sodium Potassium Chloride Carbon Dioxide Anion Gap BUN Creatinine Est GFR (CKD-EPI) Glucose Calcium 25-OH Vitamin D Total 48.6 Cancelled Blood Type B Positive Antibody Screen Negative 02/06/23 02/06/23 05:39 05:39 Corrected WBC 8.6 Uncorrected WBC Count 8.6 RBC 3.10 L Hgb 10.2 L Hct 30.0 L MCV 96.9 MCH 32.8 MCHC 33.8 RDW 16.0 H Plt Count 159 MPV 6.9 Neut % (Auto) 88.4 Lymph % (Auto) 5.4 Imperial % (Auto) 6.1 Eos % (Auto) 0.0 Baso % (Auto) 0.1 Nucleat RBC Rel Count 0.0 Neut # (Auto) 7.6 Lymph # (Auto) 0.5 L Imperial # (Auto) 0.5 Eos # (Auto) 0.0 Baso # (Auto) 0.0 PHA Creatinine Clear 13.43 Sodium 135 L Potassium 4.0 Chloride 102 Carbon Dioxide 25.6 Anion Gap 11.4 BUN 42 H Creatinine 6.02 H D Est GFR (CKD-EPI) 9.689 Glucose 115 H Calcium 7.9 L D 25-OH Vitamin D Total Blood Type Antibody Screen Assessment / Plan Assessment and plan (1) ESRD on hemodialysis: Code(s): N18.6 - End stage renal disease; Z99.2 - Dependence on renal dialysis Status: Acute (2) Closed left hip fracture: Plan: POD 1 status post L cemented AMANDEEP for FN fx 1. Pain control 2. DVT prophylaxis: DB Hose bilaterally, SCDs bilaterally, and recommend Lovenox given the patient's GI history and renal status.? Will defer final decision to the medicine team.? Given his surgery I would recommend 35 days of chemical DVT prophylaxis. Patient is cleared for chemical DVT prophylaxis. 3. Perioperative antibiotics with IV Ancef and then 7 days of Duricef. 4. PT/OT: WBAT left lower extremity 5. Appreciate hospitalist assistance with medical management 6. Hemoglobin: 10.2 this morning, continue iron and vitamin C 7. PACU x-rays look good 8. Today's plan: Work with PT/OT. Likely will have his scheduled dialysis today 9. Disposition: Pending PT/OT evaluation. If the patient does well with therapy today and is able to get dialysis and still feels good he may be a able to go home today. Code(s): S72.002A - Fracture of unspecified part of neck of left femur, initial encounterfor closed fracture Status: Acute Documented By: Em Melissa MD 02/06/2301 07 Signed By: <Electronically signed by Em Melissa MD> 02/06/23824 [facility] Work Phone: 1([phone]) 837-207009-22-2023 Progress note Author Erin Anderson [facility] February 06, 2023 12:47am Note Date/Time February 05, 2023 4:27pm [facility] [address] [place], [place] [id number] Hospitalist Progress Note Signed Patient: Mele Sky MR#: [id number] : 1955 Acct:[id number] Age/Sex: 67 / M Adm Date: 3 Loc: 4N Room: 1B2180-3 Type: ADM IN Attending Dr: Erin Anderson MD Copies to: ~ Date of Service: 02/05/2023 Subjective Subjective Narrative: Assessment And Plan 67M with PMH of ESRD on HD, Gastric Bypass who presented with left hip pain to [place] ED and transferred for the evaluation and treatment of suspected left hip fracture Closed left hip fracture The patient reported falling around two week before admission. He was evaluated at the [facility] emergency and no Fracture was found on the CT scan. 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 While at work he felt a pop in the lefthip followed by significant pain [place] ER CT reported Acute comminuted subcapital fracture of the proximal left femur For surgery today Pain control Preoperative evaluation The patient doesn't have any cardiac or pulmonary disease . He has good functional capacity. CXR shows no acute finding. Recent EKG shows NS , RBBB It is ok to proceed with the urgent surgery with acceptable Cardiopulmonary risk ESRD Nephrology was consulted for the management of dialysis and ESRD complication, recommendation appreciated. INTERVAL HPI: As Above, Pt resting in bed. feeling better. Denies any chest pain, SOB. still have severe pain in the left hip Chronic diseases: Unless mentioned Above, Essential home medications have been continued. DVT Px: Addressed Disposition: To be determined Plan of care Discussed with: the medical team, the patient Exam Physical Exam Vital Signs: Temp Pulse Resp BP Pulse Ox O2 Del Method 36.9 C 75 18 129/79 99 Room Air 02/05/23 12:00 02/05/23 12:00 02/05/23 12:00 02/05/23 12:00 02/05/23 12:00 02/05/23 12:00 Narrative: GEN: NAD, Cooperative LUNGS: CTA. normal respiratory effort CV: nl S1 S2; no M/R/G ABD: Soft, ND, NT, + BS, ? rebound, ? guarding, ? HSM EXT: No peripheral edema, No calf muscle tenderness NEURO: ? FND. limited exam in the left leg due to pain PSYCH: nl affect Objective Lab Results 02/05/23 04:29 02/05/23 04:29 Meds Allergies and Active Meds Allergies shellfish derived Allergy (Verified 01/22/23 08:29) Anaphylaxis Active Meds: Active Medications Generic Name Dose Route Start Last Admin Trade Name Freq PRN Reason Stop Dose Admin Acetaminophen 650 mg 02/05/23 03:55 Acetaminophen 325 Mg Tablet PO 02/05/24 03:54 Q6HR PRN Pain Scale 1 - 3 or fever Hydromorphone HCl 0.5 mg 02/05/23 03:55 02/05/23 15:19 Hydromorphone 0.5 Mg/0.5 Ml Syringe IV-PUSH 0.5 mg Q4H PRN Administration Pain Scale 8 - 10 Sodium Chloride 500 mls @ 20 mls/hr 02/05/23 14:19 0.9% Sodium Chloride 500 Ml IV 02/06/23 15:18 ONCE ONE Cefazolin Sodium 2 gm in 50 mls @ 100 mls/hr 02/05/23 16:09 Ancef IV 02/05/23 16:38 PREOP ONE Vancomycin HCl 1.25 gm/ 275 mls @ 183.333 mls/hr 02/05/23 17:00 Dextrose IV 02/05/23 18:29 PREOP ONE Protocol Oxycodone HCl 5 mg 02/05/23 03:55 02/05/23 12:20 Oxycodone Ir 5 Mg Tablet PO 5 mg Q6HR PRN Administration Pain Scale 4 - 7 Pantoprazole Sodium 40 mg 02/05/23 09:00 02/05/23 08:59 Pantoprazole 40 Mg Vial IV-PUSH 02/05/24 08:59 40 mg BID MELISSA Administration Prochlorperazine Edisylate 5 mg 02/05/23 03:55 Prochlorperazine Edisylate 10 Mg/2 Ml Vial IV-PUSH 02/05/24 03:54 Q4H PRN Nausea And Vomiting Sodium Chloride 10 ml 02/05/23 04:32 Sodium Chloride 0.9 % 10 Ml Syringe IV-PUSH 02/05/24 04:31 PRN PRN Flush Sodium Chloride 10 ml 02/05/23 04:32 02/05/23 08:59 Sodium Chloride 0.9 % 10 Ml Vial.Pf INJECTION 02/05/24 04:31 10 ml PRN PRN Administration Dilution Sodium Chloride 0 ml 02/05/23 14:19 Sodium Chloride 0.9 % 10 Ml Syringe IV-PUSH 02/05/24 14:18 PRN PRN Flush Sodium Chloride 0 ml 02/05/23 16:09 Sodium Chloride 0.9 % 10 Ml Syringe IV-PUSH 02/05/24 16:08 PRN PRN Flush Documented By: Erin Anderson MD 02/05/23 1623 Signed By: <Electronically signed by Erin Anderson MD> 02/06/23 0047 [facility] Work Phone: [phone]) [phone] Consult note Author Em Melissa [facility] February 05, 2023 1:24pm Note Date/Time February 05, 2023 1:24pm [facility] [address] [place] [address] Orthopedic Consult Note Signed Patient: Mele Sky MR#: [id number] : 1955 Acct:[id number] Age/Sex: 67 / M Adm Date: 3 Loc: Room: 3Z8243-6 Type: ADM IN Attending Dr: Erin Anderson MD Copies to: DO Erin Kc MD Robert M Carlisle, MD~ History of Present Illness HPI Consult date: 02/05/2023 Requesting provider: Erin Anderson MD History of present illness: Patient is a 67-year-old male who noted a fall about 2 weeks ago. He was seen at the [facility] emergency room and all x-rays and further imaging, it soundslike a CT scan, was negative on the left hip. He had on and off pain for those 2 weeks and then yesterday as he was transporting a patient at the [place] emergency department he felt a pop in the left hip and collapsed. Imaging at the [place] emergency department demonstrated a displaced left femoral neck fracture and the patient was transferred to [facility] for further medical management and orthopedic evaluation. Currently, the patient is resting comfortably in his bed. Tells me that he has had a history of bariatric surgery that was then ultimately reversed due to a gastric bleed. Several years ago he had some necrotic bowel. These multiple surgeries and multiple medical issues ended up taking a toll on his kidneys and he has been on dialysis now for nearly a year. He has been stable and actually still produces urine. 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 Prior to this fall the patient endorses pain in the affected hip as described above. Living situation: Lives at home with his Assistive devices: None Anticoagulation: None Prior injuries or surgeries to the affected hip: None Smoking status: Non-smoker Immune modulating drugs: Medications for his dialysis The patient has been cleared for surgery by the hospitalist team. [facility] Medical History Anemia DVT (deep venous thrombosis) GI bleed 07/27/22 Hemodialysis access, fistula mature Hemodialysis patient MWF History of necrotic bowel repaired Pulmonary embolism 2000 Surgical History H/O gastric bypass reversed at [facility] Hx of abdominal surgery gut transplant at the [facility] Family History Father Lung cancer Mother Diabetes Social History Smoking Status: Never smoker Substance Use Type: None Allergies & Medications Medications and Allergies Allergies shellfish derived Allergy (Verified 01/22/23 08:29) Anaphylaxis Home Medications multivitamin 1 tab PO DAILY 09/08/22 [History Confirmed 02/05/23] pantoprazole 40 mg tablet,delayed release 40 mg PO BID 09/08/22 [History Confirmed 02/05/23] calcium acetate 667 mg tablet 667 mg PO TID #90 tabs 09/11/22 [Rx Confirmed 01/22/23] tamsulosin 0.4 mg capsule 0.4 mg PO DAILY 30 days #30 caps 09/11/22 [Rx Confirmed 02/05/23] cholecalciferol (vitamin D3) 10 mcg (400 unit) capsule 200 unit PO DAILY 01/22/23 [History Confirmed 02/05/23] darbepoetin trevor in polysorbat 25 mcg/mL in polysorbate injection (Aranesp) 25 mcg subcut QWEEK 01/22/23 [History Confirmed 02/05/23] furosemide 40 mg tablet 40 mg PO DAILY 01/22/23 [History Confirmed 02/05/23] paricalcitol 2 mcg/mL intravenous solution (Zemplar) 6 mcg IV 3XW 01/22/23 [History Confirmed 02/05/23] Exam Physical Exam Vital Signs: Temp Pulse Resp BP Pulse Ox O2 Del Method 98.4 F 75 18 129/79 99 Room Air 02/05/23 12:00 02/05/23 12:00 02/05/23 12:00 02/05/23 12:00 02/05/23 12:00 02/05/23 12:00 Narrative: Left lower extremity is resting in a shortened externally rotated position. Tenderness palpation over the proximal femur around the hip. Skin is atraumaticand healthy appearing. Foot is warm and well-perfused. Sensation intact to light touch throughout the foot. Patient wiggles the toes and moves her ankle up and down. Results Lab Results 02/05/23 04:29 02/05/23 04:29 Labs: Laboratory Results - Last 48 hrs. 02/05/23 04:29: PHA Creatinine Clear 16.01, Sodium 138, Potassium 3.4 L, Chloride 102, Carbon Dioxide 30.5, Anion Gap 8.9, BUN 31 H, Creatinine 5.05 H, Est GFR (CKD-EPI) 11.963, Glucose 107 H, Calcium 9.5, Total Bilirubin 0.5, AST 16, ALT 17, Alkaline Phosphatase 53, Total Protein 6.2 L, Albumin 3.8, Globulin 2.4, Albumin/Globulin Ratio 1.6 02/05/23 04:29: PT 10.5, INR 0.9 02/05/23 04:29: Corrected WBC 8.8, Uncorrected WBC Count 8.8, RBC 3.43 L, Hgb 11.1 L, Hct 33.0 L, MCV 96.1, MCH 32.5, MCHC 33.8, RDW 16.3 H, Plt Count 187, MPV 6.9, Neut % (Auto) 78.4, Lymph % (Auto) 10.6, Imperial % (Auto) 8.7, Eos % (Auto) 1.8, Baso % (Auto) 0.5, Nucleat RBC Rel Count 0.1, Neut # (Auto) 6.9, Lymph # (Auto) 0.9 L, Imperial # (Auto) 0.8, Eos # (Auto) 0.2, Baso # (Auto) 0.0 H & H 02/05/23 Range/Units 04:29 Hgb 11.1 L (13.0-17.0) g/dL Hct 33.0 L (38.8-50.0) % Coagulation 02/05/23 Range/Units 04:29 INR 0.9 All other labs are normal. Imaging & Diagnostic Results Imaging/Diagnostics: X-rays of the pelvis and left femur were obtained today and independently reviewed. There is a completely displaced left subcapital femoral neck fracture. There is mild joint space narrowing and mild osteophyte formation on the superior lateral aspect of the acetabulum. I do not appreciate any acute osseous abnormalities within the femoral shaft or distal femur. Assessment/Plan (1) ESRD on hemodialysis: Code(s): N18.6 - End stage renal disease; Z99.2 - Dependence on renal dialysis (2) Closed left hip fracture: Plan: Closed left displaced subcapital femoral neck fracture I had a long discussion with the patient regarding their diagnosis and treatmentoptions. I explained to them that hip fracture is typically an operative diagnosis. However, we did discuss nonoperative and nonoperative treatment options. In regards to nonoperative treatment, I explained that they would be likely bedbound for an extended period of the time and would be unable to weight-bear on the affected leg for approximately 3 months. While this does avoid the risksof surgery, there are significant risks with being bedbound for that long including but not limited to the following: bedsores, pneumonia, blood clots, and other medical complications. In regards to operative treatment, I explained that hip fractures are typically either fixed or replaced with implants. In regards to their hip fracture, I feel it is most amenable to an arthroplasty procedure. We discussed the differences between a total hip arthroplasty and a Anatoly hip arthroplasty. I feel that he would be a good candidate for a total hip arthroplasty. We discussed the risks and benefits of this operative intervention. The benefits include but are not limited to the following: improved pain control, quicker ambulation, and typically improved quality of life compared to nonoperative management. However, there are risks involved with the surgical procedure including but not limited to the following: Infection, bleeding, injury to surrounding structures at the surgery site such as blood vessels, nerves, tendons, muscles, blood clots including DVT or PE, failure of hardware, intraoperative or postoperative fractures that may require further surgery, and other inherent risks of general anesthesia. We discussed these risks and benefits of both treatment options at length. The patient's questions and concerns were all answered and addressed. Ultimately they agreed to proceed with left total hip replacement. Hemoglobin 11.1-he will be on iron and vitamin C postoperatively Albumin 3.8 Calcium 9.5 Vitamin D pending We will plan to move forward with a left total hip arthroplasty later today. Code(s): S72.002A - Fracture of unspecified part of neck of left femur, initial encounterfor closed fracture Documented By: Em Melissa MD 02/05/23 13 15 Signed By: <Electronically signed by Em Melissa MD> 02/05/[address] [place] [address] Work Phone: 1([phone]) [phone] Consult note Author He Fam [facility] February 05, 2023 12:56pm Note Date/Time February 05, 2023 12:56pm [facility] [address] [place] [address] Nephrology Consult Note Signed Patient: Mele Sky MR#: [id number] : 1955 Acct:[id number] Age/Sex: 67 / M Adm Date: 3 Loc: Room: [address] [place] [address] Type: ADM IN Attending Dr: Erin Anderson MD Copies to: DO He Kc MD Marwan Wassouf, MD~ Providers Consult Date: 02/05/23 Requesting Provider: Erin Anderson MD Primary Care Provider: Ivan Lloyd DO [facility] Reason for Consult: Management of ESRD and dialysis during hospital stay History of Present Illness: Mr. Calvin is a 67-year-old white gentleman with history of ESRD on hemodialysis at [place] dialysis unit on MWF schedule since August 2022. He hascomplicated medical history as listed below. Patient presented to [facility] ER on 02/04 with pain involving the left hip. 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 Imaging inthe ER showed evidence of closed left hip fracture. [facility] he may need nephrology service for dialysis. Patient reported that he did feel about 2 weeks ago and that he went to [facility] and had CT scan of the hip and he was told that there was no fracture. He has been doing fine and working with no issues over the last 2 weeks. Patient was admitted for orthopedic evaluation and possible surgery. Nephrology was consulted for management of ESRD and dialysis. Past medical history: * ESRD on dialysis that was started on August 2022. Patient presented with creatinine 9.3 and BUN 124 mg/dL. The reason for ESRD is progression of underlying CKD after FITO and ATN in 2011 in the setting of multiorgan failure after small bowel perforation and bowel resection for which she has been on dialysis for 9 months. Patient stated that his creatinine stabilized at 3 mg/dL however he did not follow-up with nephrology. He had admission at [facility] on July 2022 for GI bleeding and creatinine was found to 7 mg/dL with no improvement. * History of Hanna-en-Y gastric bypass surgery in 2004 followed by significant weight loss * History of DVTs and pulmonary embolism. He is not on anticoagulation anymore because of GI bleeding. Patient denies any fever or chills. He has significant pain involving the left hip. No hematemesis or melena. No cough or expectoration. No shortness of breath. No chest pain. Review of Systems Review of Systems All other systems reviewed & are negative unless noted below or in HPI [facility] Medical History Anemia DVT (deep venous thrombosis) GI bleed 07/27/22 Hemodialysis access, fistula mature Hemodialysis patient MWF History of necrotic bowel repaired Pulmonary embolism 2000 Surgical History H/O gastric bypass reversed at [facility] Hx of abdominal surgery gut transplant at the [facility] Family History Father Lung cancer Mother Diabetes Social History Smoking Status: Never smoker Substance Use Type: None Meds Medications & Allergies Allergies shellfish derived Allergy (Verified 01/22/23 08:29) Anaphylaxis Home Medications multivitamin 1 tab PO DAILY 09/08/22 [History Confirmed 02/05/23] pantoprazole 40 mg tablet,delayed release 40 mg PO BID 09/08/22 [History Confirmed 02/05/23] calcium acetate 667 mg tablet 667 mg PO TID #90 tabs 09/11/22 [Rx Confirmed 01/22/23] tamsulosin 0.4 mg capsule 0.4 mg PO DAILY 30 days #30 caps 09/11/22 [Rx Confirmed 02/05/23] cholecalciferol (vitamin D3) 10 mcg (400 unit) capsule 200 unit PO DAILY 01/22/23 [History Confirmed 02/05/23] darbepoetin trevor in polysorbat 25 mcg/mL in polysorbate injection (Aranesp) 25 mcg subcut QWEEK 01/22/23 [History Confirmed 02/05/23] furosemide 40 mg tablet 40 mg PO DAILY 01/22/23 [History Confirmed 02/05/23] paricalcitol 2 mcg/mL intravenous solution (Zemplar) 6 mcg IV 3XW 01/22/23 [History Confirmed 02/05/23] Active Medications: Active Medications Acetaminophen (Acetaminophen 325 Mg Tablet) 650 mg PO Q6HR PRN PRN Reason: Pain Scale 1 - 3 or fever Stop: 02/05/24 03:54 Hydromorphone HCl (Hydromorphone 0.5 Mg/0.5 Ml Syringe) 0.5 mg IV-PUSH Q4H PRN PRN Reason: Pain Scale 8 - 10 Last Admin: 02/05/23 09:49 Dose: 0.5 mg Oxycodone HCl (Oxycodone Ir 5 Mg Tablet) 5 mg PO Q6HR PRN PRN Reason: Pain Scale 4 - 7 Last Admin: 02/05/23 12:20 Dose: 5 mg Pantoprazole Sodium (Pantoprazole 40 Mg Vial) 40 mg IV-PUSH BID MELISSA Stop: 02/05/24 08:59 Last Admin: 02/05/23 08:59 Dose: 40 mg Prochlorperazine Edisylate (Prochlorperazine Edisylate 10 Mg/2 Ml Vial) 5 mg IV- PUSH Q4H PRN PRN Reason: Nausea And Vomiting Stop: 02/05/24 03:54 Sodium Chloride (Sodium Chloride 0.9 % 10 Ml Syringe) 10 ml IV-PUSH PRN PRN PRN Reason: Flush Stop: 02/05/24 04:31 Sodium Chloride (Sodium Chloride 0.9 % 10 Ml Vial.Pf) 10 ml INJECTION PRN PRN PRN Reason: Dilution Stop: 02/05/24 04:31 Last Admin: 02/05/23 08:59 Dose: 10 ml Exam Physical Exam Vital Signs: Temp Pulse Resp BP Pulse Ox O2 Del Method 36.9 C 75 18 129/79 99 Room Air 02/05/23 12:00 02/05/23 12:00 02/05/23 12:00 02/05/23 12:00 02/05/23 12:00 02/05/23 12:00 Narrative: Constitutional: Appears comfortable and not in distress HEENT: Head was atraumatic, normocephalic. He has significant pallor with no jaundice or cyanosis. Mucous membranes are moist. Cardiovascular: RRR, normal S1-S2, no gallop or rub, No JVD Respiratory: Good bilateral air entry no wheezing or crackles Gastrointestinal: Soft, non tender, positive bowel sounds. No palpable organs or masses. Scar from previous surgeries are well-healed. Extremities: No edema Skin: No rashes or bruises Musculoskeletal: Pain involving the left leg and hip s/p closed left hip fracture Neurology: Awake, alert, oriented ?3, No focal motor or sensory deficits Psych: Normal mood and affect Results Labs 02/05/23 04:29 02/05/23 04:29 Labs: 02/05/23 04:29 BUN 31 H Creatinine 5.05 H Albumin 3.8 Radiology Impressions Impressions - last 24 hours: Impressions Chest X-Ray 02/05/23 03:55 IMPRESSION: NO ACUTE FINDINGS Impression dictated by: Yusra Medley M.D.02/05/2023 7:09 AM Dictation Location: [place] [address] Pelvis X-Ray 02/05/23 10:54 IMPRESSION:Displaced LEFT subcapital hip fracture. the pathologic component seen with CT examination. 2 views of the LEFT hip Subcapital hip fracture redemonstrated. No additional fracture seen. No dislocation. Unremarkable soft tissues. IMPRESSION: No additional fracture. Impression dictated by: Rodrigo Bishop M.D.02/05/2023 11:48 AM Dictation Location: [place] [address] Any impression(s) listed above is documentation that was entered by the reading physician into a diagnostic report(s) for Mele Sky. I have reviewed the report(s) and am incorporating any findings in the treatment plan of this patient where applicable. A&P - Nephrology Assessment/Plan (1) ESRD on hemodialysis: Assessment/Problem Details: Patient has ESRD related to progression of CKD s/p FITO in setting of multiorgan failure in 2011 with incomplete recovery. Patient is currently getting dialysisat [place] dialysis unit on MWF schedule. Last hemodialysis was yesterday (2) Closed left hip fracture: Assessment/Problem Details: X-ray showed evidence of displaced left subcapital hip fracture Plan * Patient had full hemodialysis yesterday. He has been comfortable with no volume overload, hyperkalemia or acidosis. No need for dialysis today. Next hemodialysis will be tomorrow per his chronic orders. * Orthopedics was consulted for evaluation for possible surgery this afternoon. Patient still NPO. * All medications were reviewed. Patient does not take much medications at home as he has no history of diabetes or cardiac disease. * Monitor daily intake and output and renal panel and adjust medications and d ialysis prescription as indicated. I appreciate his consultation we will be happy to follow the patient with you during hospital stay. Documented By: He Fam MD 02/05/23 1239 Signed By: <Electronically signed by MD He Fam> 02/05/23 1251 [facility] Work Phone: 1(525) 851-325809-21-2023 History and physical note Author Tk Shah [facility] February 05, 2023 4:34am Note Date/Time February 05, 2023 4:01am [facility] [address] [place] [address] Hospitalist H&P Signed Patient: Mele Sky MR#: [id number] : 1955 Acct:[id number] Age/Sex: 67 / M Adm Date: 3 Loc: Room: [address] [place] [address] Type: ADM IN Attending Dr: Tk Shah MD Copies to: DO Tk Kc MD~ HPI DATE OF EXAMINATION: 02/05/23 CHIEF COMPLAINT: left hip fracture HISTORY OF PRESENT ILLNESS: Patient is a 67-year-old male with medical history of ESRD on dialysis, history of gastric bypass, history of necrotic bowel underwent extensive surgery at [facility]. Patient was transferred from [facility] to our facility due to lack of nephrology services. 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 He went to ER there and imaging was done to his left hip which showed closed left hip fracture. Given his ESRD on dialysis patient was transferred to our facility to maintain his dialysis schedule while taking care of his hip fractureby our orthopedic service. Patient denies any fever, chills, nausea, vomiting, abdominal pain, chest pain, shortness of breath. Patient states that he fell about 2 weeks ago and went to [facility] and they did CT of his hips and was told there was no fracture, and he has been doing fine and working with no issues. Review of Systems Review of Systems Review of systems: 10 systems are reviewed and are negative except as mentioned elsewhere in the documentation [facility] Medical History Anemia DVT (deep venous thrombosis) GI bleed 07/27/22 Hemodialysis access, fistula mature Hemodialysis patient MWF History of necrotic bowel repaired Pulmonary embolism 2000 Surgical History H/O gastric bypass reversed at [facility] Hx of abdominal surgery gut transplant at the [facility] Family History Father Lung cancer Mother Diabetes Social History Smoking Status: Never smoker Substance Use Type: None Meds Medications and Allergies Allergies shellfish derived Allergy (Verified 01/22/23 08:29) Anaphylaxis Home Medications multivitamin 1 tab PO DAILY 09/08/22 [History Confirmed 02/05/23] pantoprazole 40 mg tablet,delayed release 40 mg PO BID 09/08/22 [History Confirmed 02/05/23] calcium acetate 667 mg tablet 667 mg PO TID #90 tabs 09/11/22 [Rx Confirmed 01/22/23] tamsulosin 0.4 mg capsule 0.4 mg PO DAILY 30 days #30 caps 09/11/22 [Rx Confirmed 02/05/23] cholecalciferol (vitamin D3) 10 mcg (400 unit) capsule 200 unit PO DAILY 01/22/23 [History Confirmed 02/05/23] darbepoetin trevor in polysorbat 25 mcg/mL in polysorbate injection (Aranesp) 25 mcg subcut QWEEK 01/22/23 [History Confirmed 02/05/23] furosemide 40 mg tablet 40 mg PO DAILY 01/22/23 [History Confirmed 02/05/23] paricalcitol 2 mcg/mL intravenous solution (Zemplar) 6 mcg IV 3XW 01/22/23 [History Confirmed 02/05/23] Exam Physical Exam Narrative: Const General: cooperative HEENT Normal oropharyngeal mucosa without any ulcers or exudates Eyes: Conjunctiva normal Pulmonary Auscultation: clear to auscultation , no crackles, no wheezes Cardiovascular Rate: normal rate Rhythm: regular rhythm Heart Sounds: S1 normal, S2 normal and no murmurs R chest dialysis catheter GI Inspection: non-distended Palpation: soft, not firm and nontender. No rigidity or rebound. Deferred Neuro General: alert, awake and oriented x3. No obvious new focal deficit Musculoskeletal: limited range of motion on LLE Extrem General: no cyanosis, no pedal edema Psych Appearance: appropriate affect. Grossly normal Assessment & Plan Assessment/Plan (1) Closed left hip fracture: (2) ESRD on hemodialysis: Plan Closed left hip fracture ESRD on dialysis MWF Preop medical evaluation -Check CBC, CMP -Check CXR and EKG for pre op evaluation -NPO for possible OR -Holding AP/AC -Pain control as needed as directed -Orthopedic consult -Nephrology consult to maintain HD schedule. He did received HD on Thursday perschedule. Diet: N.p.o. Ok for ice chips DVT ppx: SCDs GI ppx: PPI Code status: Full Disposition: Inpatient status Discussed with patient at bedside, all question answered, he is in agreement with this plan. IP vs OBS Justification Based on differential dx, clinical care plan, and risk of adverse events, if untreated, in my clinical judgement this patient requires an acute care setting as: INPATIENT because of an expectation of an over 2 midnight stay. Estimated length of stay (# of days): 3 Documented By: Tk Shah MD 02/05/23 03 59 Signed By: <Electronically signed by Tk Shah MD> 02/05/23 0434 [facility] Work Phone: [phone]) 458-558109-14-2023 Miscellaneous Notes* Telephone Encounter - Katty Guidry - 01/29/2023 2:31 PM EDT Received online referral for Kidney Transplant and emailed to nurse coordinator for review. [facility] Discharge instructions Patient Education 01/29/2023 09:45:25 Dietary Guidelines to Help Prevent Kidney Stones Dietary Guidelines to Help Prevent Kidney Stones Kidney stones are deposits of minerals and salts that form inside your kidneys. Your risk of developing kidney stones may be greater depending on your diet, your lifestyle, the medicines you take, and whether you have certain medical conditions. Most people can lower their chances of developing kidney stones by following the instructions below. Your dietitian may give you more specific instructions depending on your overall health and the type of kidney stones you tend to develop. What are tips for following this plan? Reading food labels Choose foods with no salt added or low-salt labels. Limit your salt (sodium) intake to less than 1,500 mg a day. Choose foods with calcium for each meal and snack. Try to eat about 300 mg of calcium at each meal.Foods that contain 200 500 mg of calcium a serving include: ?8 oz (237 mL) of milk, nvkfmoc-xkbibcojqqit-salxt milk, and calcium- fortifiedfruit juice. Calcium-fortified means that calcium has been added to these drinks. ?8 oz (237 mL) of kefir, yogurt, and soy yogurt. ?4 oz (114 g) of tofu. ?1 oz (28 g) of cheese. ?1 cup (150 g) of dried figs. ?1 cup (91 g) of cooked broccoli. ?One 3 oz (85 g) can of sardines or mackerel. Most people need 1,000 1,500 mg of calcium a day. Talk to your dietitian about how much calcium is recommended for you. Shopping Buy plenty of fresh fruits and vegetables. Most people do not need to avoid fruits and vegetables, even if these foods contain nutrients that may contribute to kidney stones. When shopping for convenience foods, choose: ?Whole pieces of fruit. ?Pre-made salads with dressing on the side. ?Low-fat fruit and yogurt smoothies. Avoid buying frozen meals or prepared deli foods. These can be high in sodium. Look for foods with live cultures, such as yogurt and kefir. Choose high-fiber grains, such as whole-wheat breads, oat bran, and wheat cereals. Cooking Do not add salt to food when cooking. Place a salt shaker on the table and allow each person to addhis or her own salt to taste. Use vegetable protein, such as beans, textured vegetable protein (TVP), or tofu, instead of meat inpasta, casseroles, and soups. Meal planning Eat less salt, if told by your dietitian. To do this: ?Avoid eating processed or pre-made food. ?Avoid eating fast food. Eat less animal protein, including cheese, meat, poultry, or fish, if told by your dietitian. To dothis: ?Limit the number of times you have meat, poultry, fish, or cheese each week. Eat a diet free of meat at least 2 days a week. ?Eat only one serving each day of meat, poultry, fish, or seafood. ?When you prepare animal protein, cut pieces into small portion sizes. For most meat and fish, one serving is about the size of the palm of your hand. Eat at least five servings of fresh fruits and vegetables each day. To do this: ?Keep fruits and vegetables on hand for snacks. ?Eat one piece of fruit or a handful of berries with breakfast. ?Have a salad and fruit at lunch. ?Have two kinds of vegetables at dinner. Limit foods that are high in a substance called oxalate. These include: ?Spinach (cooked), rhubarb, beets, sweet potatoes, and Iraqi chard. ?Peanuts. ?Potato chips, danish fries, and baked potatoes with skin on. ?Nuts and nut products. ?Chocolate. If you regularly take a diuretic medicine, make sure to eat at least 1 or 2 servings of fruits or vegetables that are high in potassium each day. These include: ?Avocado. ?Banana. ?Hood, prune, carrot, or tomato juice. ?Baked potato. ?Cabbage. ?Beans and split peas. Lifestyle Drink enough fluid to keep your urine pale yellow. This is the most important thing you can do. Spread your fluid intake throughout the day. If you drink alcohol: ?Limit how much you use to: ?0 1 drink a day for women who are not . ?0 2 drinks a day for men. ?Be aware of how much alcohol is in your drink. In the [place] one drink equals one 12 oz bottle of beer (355 mL), one 5 oz glass of wine (148 mL), or one 1 oz glass of hard liquor (44 mL). Lose weight if told by your health care provider. Work with your dietitian to find an eating plan and weight loss strategies that work best for you. General information Talk to your health care provider and dietitian about taking daily supplements. You may be told thefollowing depending on your health and the cause of your kidney stones: ?Not to take supplements with vitamin C. ?To take a calcium supplement. ?To take a daily probiotic supplement. ?To take other supplements such as magnesium, fish oil, or vitamin B6. Take uyln-mka-szfzsmd and prescription medicines only as told by your health care provider. These include supplements. What foods should I limit? Limit your intake of the following foods, or eat them as told by your dietitian. Vegetables Spinach. Rhubarb. Beets. Canned vegetables. Pickles. Olives. Baked potatoes with skin. Grains Wheat bran. Baked goods. Salted crackers. Cereals high in sugar. Meats and other proteins Nuts. Nut butters. Large portions of meat, poultry, or fish. Salted, precooked, or cured meats, such as sausages, meat loaves, and hot dogs. Dairy Cheese. Beverages Regular soft drinks. Regular vegetable juice. Seasonings and condiments Seasoning blends with salt. Salad dressings. Soy sauce. Ketchup. Barbecue sauce. Other foods Canned soups. Canned pasta sauce. Casseroles. Pizza. Lasagna. Frozen meals. Potato chips. Malay fries. The items listed above may not be a complete list of foods and beverages you should limit. Contact a dietitian for more information. What foods should I avoid? Talk to your dietitian about specific foods you should avoid based on the type of kidney stones youhave and your overall health. Fruits Grapefruit. The item listed above may not be a complete list of foods and beverages you should avoid. Contact adietitian for more information. Summary Kidney stones are deposits of minerals and salts that form inside your kidneys. You can lower your risk of kidney stones by making changes to your diet. The most important thing you can do is drink enough fluid. Drink enough fluid to keep your urine pale yellow. Talk to your dietitian about how much calcium you should have each day, and eat less salt and animal protein as told by your dietitian. This information is not intended to replace advice given to you by your health care provider. Make sure you discuss any questions you have with your health care provider. Document Revised: 01/13/2022 Document Reviewed: 01/13/2022 [employer] Patient Education 2022 VFA. Follow Up Care 11/27/2022 08:42:48 With:Casper JENKINS, ARLENE Cowan, [facility] Address: When: Unknown [facility] 09-08-2023 Hospital Discharge instructions Patient Education 01/23/2023 19:54:16 Joint Pain, Nqnv-oc-Txeo Joint Pain Joint pain can be caused by many things. It is likely to go away if you follow instructions from your doctor for taking care of yourself at home. Sometimes, you may need more treatment. Follow these instructions at home: Managing pain, stiffness, and swelling If told, put ice on the painful area. To do this: ?If you have a removable elastic bandage, sling, or splint, take it off as told by your doctor. ?Put ice in a plastic bag. ?Place a towel between your skin and the bag. ?Leave the ice on for 20 minutes, 2 3 times a day. ?Take off the ice if your skin turns bright red. This is very important. If you cannot feel pain, heat, or cold, you have a greater risk of damage to the area. Move your fingers or toes below the painful joint often. Raise the painful joint above the level of your heart while you are sitting or lying down. If told, put heat on the painful area. Do this as often as told by your doctor. Use the heat sourcethat your doctor recommends, such as a moist heat pack or a heating pad. ?Place a towel between your skin and the heat source. ?Leave the heat on for 20 30 minutes. ?Take off the heat if your skin gets bright red. This is especially important if you are unable to feel pain, heat, or cold. You may have a greater risk of getting burned. Activity Rest the painful joint for as long as told by your doctor. Do not do things that cause pain or makeyour pain worse. Begin exercising or stretching the affected area, as told by your doctor. Ask your doctor what types of exercise are safe for you. Return to your normal activities when your doctor says that it is safe. If you have an elastic bandage, sling, or splint: Wear it as told by your doctor. Take it only as told by your doctor. Loosen it your fingers or toes below the joint: ?Tingle. ?Become numb. ?Get cold and blue. Keep it clean. Ask your doctor if you should take it off before bathing. If it is not waterproof: ?Do not let it get wet. ?Cover it with a watertight covering when you take a bath or shower. General instructions Take kyqe-kfr-mpgksaj and prescription medicines only as told by your doctor. This may include medicines taken by mouth or applied to the skin. Do not smoke or use any products that contain nicotine or tobacco. If you need help quitting, ask your doctor. Keep all follow-up visits as told by your doctor. This is important. Contact a doctor if: You have pain that gets worse and does not get better with medicine. Your joint pain does not get better in 3 days. You have more bruising or swelling. You have a fever. You lose 10 lb (4.5 kg) or more without trying. Get help right away if: You cannot move the joint. Your fingers or toes tingle, become numb. or get cold and blue. You have a fever along with a joint that is red, warm, and swollen. Summary Joint pain can be caused by many things. It often goes away if you follow instructions from your doctor for taking care of yourself at home. Rest the painful joint for as long as told. Do not do things that cause pain or make your pain worse. Take ysvc-lbg-ayhxxuy and prescription medicines only as told by your doctor. This information is not intended to replace advice given to you by your health care provider. Make sure you discuss any questions you have with your health care provider. Document Revised: 08/15/2020 Document Reviewed: 08/15/2020 [employer] Patient Education 2022 VFA. 01/23/2023 19:54:16 How to Use Cold Therapy, Lpdv-aq-Pwin How to Use Cold Therapy Cold therapy, or cryotherapy, is a treatment that uses cold temperatures to treat an injury or medical condition. It includes using cold packs or ice packs to reduce pain and swelling. Only use cold therapy if your doctor says it is okay. What are the risks? Generally, cold therapy is a safe treatment. However, it is not safe for: People who are not able to say they are in pain. These include small children and people who have memory problems. People who have certain conditions, such as: ?A problem in the vessels that slows blood flow to the fingers and toes (Raynaud's syndrome). ?Feeling very cold easily (cold hypersensitivity). ?Lack of feeling in the area being iced. Cold therapy may not be safe for people who have other conditions. Do not use it without talking toyour doctor if you have: A heart condition. High blood pressure. Open or healing wounds. An infection. Pain and swelling in your joints (rheumatoid arthritis). Poor blood flow in the body. Diabetes. Certain skin conditions. How do I make a cold pack? When using a cold pack at home to reduce pain and swelling, you can use: A silica gel cold pack that has been left in the freezer. You can buy this online or in stores. A sealable plastic bag that has been filled with crushed ice. A washcloth or paper towels soaked in cold water or ice water. A plastic bag of frozen vegetables. Throw them away when you are finished using them as a cold pack. Supplies needed: A cold pack. A towel. This can be dry or damp, based on what you like. How to use cold therapy 1.Have your cold pack ready. 2.Place a towel between the cold pack and your skin. You may also wrap the cold pack in a towel. 3.Put the cold pack on the affected area. Keep it on for no more than 20 minutes at a time. 4.Check your skin after 5 minutes to make sure that there is no damage to the area. Check for: White spots on your skin. Your skin may look blotchy or mottled. Skin that looks blue or pale. Skin that feels waxy or hard. 5.Repeat these steps as many times each day as told by your doctor. Take off the ice if your skin turns bright red. This is very important. If you cannot feel pain, heat, or cold, you have a greater risk of damage to the area. Always use a towel to avoid direct contact with your skin. Contact a doctor if: You start to have white spots on your skin. This may give your skin a blotchy or mottled look. Your skin turns blue or pale. Your skin becomes waxy or hard. Your swelling gets worse. Summary Cold therapy, or cryotherapy, is used to treat an injury or other conditions. It includes using cold packs or ice packs to reduce pain and swelling. Cold therapy is not safe for people who are not able to say they are in pain. When using cold packs or ice packs, always place a towel between the cold source and your skin. Check your skin after 5 minutes of icing it. This is to make sure that there is no skin damage. Contact your doctor if you notice changes in your skin or your swelling gets worse. This information is not intended to replace advice given to you by your health care provider. Make sure you discuss any questions you have with your health care provider. Document Revised: 03/20/2021 Document Reviewed: 03/20/2021 [employer] Patient Education 2022 VFA. 01/23/2023 19:54:16 Hip Pain Hip Pain The hip is the joint between the upper legs and the lower pelvis. The bones, cartilage, tendons, and muscles of your hip joint support your body and allow you to move around. Hip pain can range from a minor ache to severe pain in one or both of your hips. The pain may be felt on the inside of the hip joint near the groin, or on the outside near the buttocks and upper thigh. You may also have swelling or stiffness in your hip area. Follow these instructions at home: Managing pain, stiffness, and swelling If directed, put ice on the painful area. To do this: ?Put ice in a plastic bag. ?Place a towel between your skin and the bag. ?Leave the ice on for 20 minutes, 2 3 times a day. If directed, apply heat to the affected area as often as told by your health care provider. Use theheat source that your health care provider recommends, such as a moist heat pack or a heating pad. ?Place a towel between your skin and the heat source. ?Leave the heat on for 20 30 minutes. ?Remove the heat if your skin turns bright red. This is especially important if you are unable to feel pain, heat, or cold. You may have a greater risk of getting burned. Activity Do exercises as told by your health care provider. Avoid activities that cause pain. General instructions Take onyv-ars-lnwmnfl and prescription medicines only as told by your health care provider. Keep a journal of your symptoms. Write down: ?How often you have hip pain. ?The location of your pain. ?What the pain feels like. ?What makes the pain worse. Sleep with a pillow between your legs on your most comfortable side. Keep all follow-up visits as told by your health care provider. This is important. Contact a health care provider if: You cannot put weight on your leg. Your pain or swelling continues or gets worse after one week. It gets harder to walk. You have a fever. Get help right away if: You fall. You have a sudden increase in pain and swelling in your hip. Your hip is red or swollen or very tender to touch. Summary Hip pain can range from a minor ache to severe pain in one or both of your hips. The pain may be felt on the inside of the hip joint near the groin, or on the outside near the buttocks and upper thigh. Avoid activities that cause pain. Write down how often you have hip pain, the location of the pain, what makes it worse, and what it feels like. This information is not intended to replace advice given to you by your health care provider. Make sure you discuss any questions you have with your health care provider. Document Revised: 09/19/2019 Document Reviewed: 09/19/2019 [employer] Patient Education 2022 VFA. 01/23/2023 19:54:16 Fall Prevention in the Home, Adult, Ldlj-sb-Cmok Fall Prevention in the Home, Adult Falls can cause injuries and can happen to people of all ages. There are many things you can do to make your home safe and to help prevent falls. Ask for help when making these changes. What actions can I take to prevent falls? General Instructions Use good lighting in all rooms. Replace any light bulbs that burn out. Turn on the lights in dark areas. Use night-lights. Keep items that you use often in vocp-cy-moonm places. Lower the shelves around your home if needed. Set up your furniture so you have a clear path. Avoid moving your furniture around. Do not have throw rugs or other things on the floor that can make you trip. Avoid walking on wet floors. If any of your floors are uneven, fix them. Add color or contrast paint or tape to clearly luis angel and help you see: ?Grab bars or handrails. ?First and last steps of staircases. ?Where the edge of each step is. If you use a stepladder: ?Make sure that it is fully opened. Do not climb a closed stepladder. ?Make sure the sides of the stepladder are locked in place. ?Ask someone to hold the stepladder while you use it. Know where your pets are when moving through your home. What can I do in the bathroom? Keep the floor dry. Clean up any water on the floor right away. Remove soap buildup in the tub or shower. Use nonskid mats or decals on the floor of the tub or shower. Attach bath mats securely with double-sided, nonslip rug tape. If you need to sit down in the shower, use a plastic, nonslip stool. Install grab bars by the toilet and in the tub and shower. Do not use towel bars as grab bars. What can I do in the bedroom? Make sure that you have a light by your bed that is easy to reach. Do not use any sheets or blankets for your bed that hang to the floor. Have a firm chair with side arms that you can use for support when you get dressed. What can I do in the kitchen? Clean up any spills right away. If you need to reach something above you, use a step stool with a grab bar. Keep electrical cords out of the way. Do not use floor maltese or wax that makes floors slippery. What can I do with my stairs? Do not leave any items on the stairs. Make sure that you have a light switch at the top and the bottom of the stairs. Make sure that there are handrails on both sides of the stairs. Fix handrails that are broken or loose. Install nonslip stair treads on all your stairs. Avoid having throw rugs at the top or bottom of the stairs. Choose a carpet that does not hide the edge of the steps on the stairs. Check carpeting to make sure that it is firmly attached to the stairs. Fix carpet that is loose or worn. What can I do on the outside of my home? Use bright outdoor lighting. Fix the edges of walkways and driveways and fix any cracks. Remove anything that might make you trip as you walk through a door, such as a raised step or threshold. Trim any bushes or trees on paths to your home. Check to see if handrails are loose or broken and that both sides of all steps have handrails. Install guardrails along the edges of any raised decks and porches. Clear paths of anything that can make you trip, such as tools or rocks. Have leaves, snow, or ice cleared regularly. Use sand or salt on paths during winter. Clean up any spills in your garage right away. This includes grease or oil spills. What other actions can I take? Wear shoes that: ?Have a low heel. Do not wear high heels. ?Have rubber bottoms. ?Feel good on your feet and fit well. ?Are closed at the toe. Do not wear open-toe sandals. Use tools that help you move around if needed. These include: ?Canes. ?Walkers. ?Scooters. ?Crutches. Review your medicines with your doctor. Some medicines can make you feel dizzy. This can increase your chance of falling. Ask your doctor what else you can do to help prevent falls. Where to find more information Centers for Disease Control and Prevention, STEADI: www.cdc.gov National [place] on Aging: www.rani.nih.gov Contact a doctor if: You are afraid of falling at home. You feel weak, drowsy, or dizzy at home. You fall at home. Summary There are many simple things that you can do to make your home safe and to help prevent falls. Ways to make your home safe include removing things that can make you trip and installing grab barsin the bathroom. Ask for help when making these changes in your home. This information is not intended to replace advice given to you by your health care provider. Make sure you discuss any questions you have with your health care provider. Document Revised: 02/03/2022 Document Reviewed: 2020 [employer] Patient Education 2022 VFA. Follow Up Care 01/23/2023 17:02:20 With:IVAN LLOYD Address: [address] [place] [phone] (1) When:01/26/2023 19:28:04 [facility]09-08-2023 Evaluation + Plan noteExtracted from: Title:ED Note Author:Kimberly St PA-C . Date:01/23/23 1. Hip swelling (M25.459: Ef fusion, unspecified hip) 2. Acute pain of left hip (M25.552: Pain in left hip) Ordered: oxycodone, 5 mg = 1 cap(s), Oral, q6hr, PRN for pain, # 18 cap(s), Refills(s) 0, Pharmacy: [facility] #[id number], 183, cm, 01/23/23 17:14:00 EDT, Height/Length Dosing, 83, kg, 01/23/23 17:14:00 EDT, Weight Dosing 3. Degenerative disc disease, lumbar (M51.36: Other intervertebral disc degeneration, lumbar region) 4. Accidental fall (W19.XXXA: Unspecified fall, initial encounter) Orders: oxycodone, 5 mg = 1 tab(s), Tab, Oral, Once, Stop date 01/23/23 19:21:00 EDT, STAT, Start date 01/23/23 19:21:00 EDT, 01/23/23 19:21:00 EDT predniSONE, 10 mg = 1 tab(s), Oral, As Directed, 6 tabs for 2 days,5 tabs for 2 days,4 tabs for 2 days,3 tabs for 2 days,2 tabs for 2 days,1 tab for 2 days, # 42 tab(s), Refills(s) 0, Pharmacy: [id number], 183, cm, 01/23/23 17:14:00 EDT, Height/L... Automated Diff Basic Metabolic Panel CBC w/ Auto Diff CT Abdomen/Pelvis w/o Contrast ED Cardiac Monitoring eGFR Hepatic Function Panel NPO Diet PT & PTT Pulse Oximetry Continuous UA With Cult Reflex Future Appointments Appointment Date:01/29/2023 10:15:00 AM Scheduled Provider:Casper JENKINS, Barby Ramirez Location:[facility] Appointment Type:URO Office Visit [facility]08-28-2023 Evaluation note* Encounter Date Diagnosis Assessment Notes Treatment Notes Treatment Clinical Notes Dec, Acute prostatitis (ICD-10 - N41.0) [employer] Other 07-13-2023 Hospital Discharge instructions Patient Education 11/27/2022 08:38:24 Prostatitis Prostatitis Prostatitis is swelling or inflammation of the prostate gland, also called the prostate. This glandis about 1.5 inches wide and 1 inch high, and it is involved in making semen. The prostate is located below a man's bladder, in front of the rectum. There are four types of prostatitis: Chronic prostatitis (CP), also called chronic pelvic pain syndrome (CPPS). This is the most common type of prostatitis. It is associated with increased muscle tone in the area between the hip bones (pelvic area), around the prostate. This type is also known as a pelvic floor disorder. Chronic bacterial prostatitis. This type usually results from an acute bacterial infection in the prostate gland that keeps coming back or has not been treated properly. The symptoms are less severe than those caused by acute bacterial prostatitis, which lasts a shorter time. Asymptomatic inflammatory prostatitis. This type does not have symptoms and does not need treatment. This is diagnosed when tests are done for other disorders of the urinary tract or reproductive tract. Acute bacterial prostatitis. This type starts quickly and results from an acute bacterial infectionin the prostate gland. It is usually associated with a bladder infection, high fever, and chills. This is the least common type of prostatitis. What are the causes? Bacterial prostatitis is caused by an infection from bacteria. Chronic nonbacterial prostatitis may be caused by: Factors related to the nervous system. This system includes thebrain, spinal cord, and nerves. An autoimmune response. This happens when the body's disease-fighting system attacks healthy tissuein the body by mistake. Psychological factors. These have to do with how the mind works. The causes of the other types of prostatitis are usually not known. What are the signs or symptoms? Symptoms of this condition depend on the type of prostatitis you have. Acute bacterial prostatitis Symptoms may include: Pain or burning during urination. Frequent and sudden urges to urinate. Trouble starting to urinate. Fever. Chills. Pain in your muscles or joints, lower back, or lower abdomen. Other types of prostatitis Symptoms may include: Sudden urges to urinate, or urinating often. Trouble starting to urinate. Weak urine stream. Dribbling after urination. Discharge coming from the penis. Pain in the testicles, the penis, or the tip of the penis. Pain in the area in front of the rectum and below the scrotum (perineum). Pain when ejaculating. How is this diagnosed? This condition may be diagnosed based on: A physical and medical exam. A digital rectal exam. For this, the health care provider may use a finger to feel the prostate. A urine test to check for bacteria. A semen sample or blood tests. Ultrasound. Urodynamic tests to check how your body handles urine. Cystoscopy to look inside your bladder or inside the part of your body that drains urine from the bladder (urethra). How is this treated? Treatment for this condition depends on the type of prostatitis. Treatment may involve: Medicines to relieve pain or inflammation, or to help relax your muscles. Physical therapy. Heat therapy. Biofeedback. These techniques help you control certain body functions. Relaxation exercises. Antibiotic medicine, if your condition is caused by bacteria. Sitz baths. These warm water baths help to relax your pelvic floor muscles, which helps to relieve pressure on the prostate. Follow these instructions at home: Medicines Take hcyr-aon-zndavyf and prescription medicines only as told by your health care provider. If you were prescribed an antibiotic medicine, take it as told by your health care provider. Do notstop using the antibiotic even if you start to feel better. Managing pain and swelling Take sitz baths as directed by your health care provider. For a sitz bath, sit in warm water that is deep enough to cover your hips and buttocks. If directed, apply heat to the affected area as often as told by your health care provider. Use theheat source that your health care provider recommends, such as a moist heat pack or a heating pad. ?Place a towel between your skin and the heat source. ?Leave the heat on for 20 30 minutes. ?Remove the heat if your skin turns bright red. This is especially important if you are unable to feel pain, heat, or cold. You may have a greater risk of getting burned. General instructions Do exercises as told by your health care provider, if you were prescribed physical therapy, biofeedback, or relaxation exercises. Keep all follow-up visits as told by your health care provider. This is important. Where to find more information National [place] of Diabetes and Digestive and Kidney Diseases: https://www.niddk.nih.gov Contact a health care provider if: Your symptoms get worse. You have a fever. Get help right away if: You have chills. You feel light-headed or feel like you may faint. You cannot urinate. You have blood or blood clots in your urine. Summary Prostatitis is swelling or inflammation of the prostate gland. Treatment for this condition depends on the type of prostatitis. Take pojp-eje-ysxlgvx and prescription medicines only as told by your health care provider. Get help right away of you have chills, feel light-headed, feel like you may faint, cannot urinate,or have blood or blood clots in your urine. This information is not intended to replace advice given to you by your health care provider. Make sure you discuss any questions you have with your health care provider. Document Revised: 06/08/2020 Document Reviewed: 06/08/2020 Elsevier Patient Education 2022 VFA. Follow Up Care 10/20/2022 15:44:22 With:Casper JENKINS, ARLENE Cowan, URO Address: When: Unknown [facility] 07-06-2023 Evaluation note* Encounter Date Diagnosis Assessment Notes Treatment Notes Treatment Clinical Notes Nov, Dysuria (ICD-10 - R30.0) [facility] [employer] Other 06-28-2023 Evaluation note* Encounter Date Diagnosis Assessment Notes Treatment Notes Treatment Clinical Notes Oct, Dysuria (ICD-10 - R30.0) [facility] [employer] Other 06-06-2023 Miscellaneous Notes* Telephone Encounter - Benjamin Seo - 10/21/2022 9:07 AM EDT [email or web address] Patient want release for back to work his sent to e-mail listed . [facility] Dis[facility] instructions Patient Education 10/20/2022 15:18:43 Kidney Stones, Ygdj-ar-Wtjp Kidney Stones Kidney stones are rock-like masses that form inside of the kidneys. Kidneys are organs that make pee (urine). A kidney stone may move into other parts of the urinary tract, including: The tubes that connect the kidneys to the bladder (ureters). The bladder. The tube that carries urine out of the body (urethra). Kidney stones can cause very bad pain and can block the flow of pee. The stone usually leaves your body (passes) through your pee. You may need to have a doctor take out the stone. What are the causes? Kidney stones may be caused by: A condition in which certain glands make too much parathyroid hormone (primary hyperparathyroidism). A buildup of a type of crystals in the bladder made of a chemical called uric acid. The body makes uric acid when you eat certain foods. Narrowing (stricture) of one or both of the ureters. A kidney blockage that you were born with. Past surgery on the kidney or the ureters, such as gastric bypass surgery. What increases the risk? You are more likely to develop this condition if: You have had a kidney stone in the past. You have a family history of kidney stones. You do not drink enough water. You eat a diet that is high in protein, salt (sodium), or sugar. You are overweight or very overweight (obese). What are the signs or symptoms? Symptoms of a kidney stone may include: Pain in the side of the belly, right below the ribs (flank pain). Pain usually spreads (radiates) to the groin. Needing to pee often or right away (urgently). Pain when going pee (urinating). Blood in your pee (hematuria). Feeling like you may vomit (nauseous). Vomiting. Fever and chills. How is this treated? Treatment depends on the size, location, and makeup of the kidney stones. The stones will often pass out of the body through peeing. You may need to: Drink more fluid to help pass the stone. In some cases, you may be given fluids through an IV tube put into one of your veins at the hospital. Take medicine for pain. Make changes in your diet to help keep kidney stones from coming back. Sometimes, medical procedures are needed to remove a kidney stone. This may involve: A procedure to break up kidney stones using a beam of light (laser) or shock waves. Surgery to remove the kidney stones. Follow these instructions at home: Medicines Take dcun-eki-vnamvlw and prescription medicines only as told by your doctor. Ask your doctor if the medicine prescribed to you requires you to avoid driving or using heavy machinery. Eating and drinking Drink enough fluid to keep your pee pale yellow. You may be told to drink at least 8 10 glasses of water each day. This will help you pass the stone. If told by your doctor, change your diet. This may include: ?Limiting how much salt you eat. ?Eating more fruits and vegetables. ?Limiting how much meat, poultry, fish, and eggs you eat. Follow instructions from your doctor about eating or drinking restrictions. General instructions Collect pee samples as told by your doctor. You may need to collect a pee sample: ?24 hours after a stone comes out. ?8 12 weeks after a stone comes out, and every 6 12 months after that. Strain your pee every time you pee (urinate), for as long as told. Use the strainer that your doctor recommends. Do not throw out the stone. Keep it so that it can be tested by your doctor. Keep all follow-up visits as told by your doctor. This is important. You may need follow-up tests. How is this prevented? To prevent another kidney stone: Drink enough fluid to keep your pee pale yellow. This is the best way to prevent kidney stones. Eat healthy foods. Avoid certain foods as told by your doctor. You may be told to eat less protein. Stay at a healthy weight. Where to find more information National Kidney Foundation (NKF): www.kidney.org Urology Care Foundation (UCF): www.urologyhealth.org Contact a doctor if: You have pain that gets worse or does not get better with medicine. Get help right away if: You have a fever or chills. You get very bad pain. You get new pain in your belly (abdomen). You pass out (faint). You cannot pee. Summary Kidney stones are rock-like masses that form inside of the kidneys. Kidney stones can cause very bad pain and can block the flow of pee. The stones will often pass out of the body through peeing. Drink enough fluid to keep your pee pale yellow. This information is not intended to replace advice given to you by your health care provider. Make sure you discuss any questions you have with your health care provider. Document Revised: 01/06/2022 Document Reviewed: 01/06/2022 [employer] Patient Education 2022 [employer] Follow Up Care 10/14/2022 09:18:51 With:Casper JENKINS, ARLENE Cowan, URO Address: [address] [place] [place] [phone] When:Within 1 Month(s) Comments:[facility] 05-26-2023 Evaluation note* Encounter Date Diagnosis Assessment Notes Treatment Notes Treatment Clinical Notes September, Other retention of urine (ICD-10 - R33.8) [employer] Other 05-18-2023 [facility]05-10-20[facility] Evaluation note* Encounter Date Diagnosis Assessment Notes Treatment Notes Treatment Clinical Notes September, End stage renal disease (ICD-10 - N18.6) Renal replacement treatment in place. Hemodialysis 3x weekly w/ plans to taper back as kidneys recover September, Anemia due to acute blood loss (ICD-10 - D62) Aranesp and IV Fe until Hgb > 10gm Monitor for active bleeding. Denies N/V/D, heartburn, dysphagia, melena or hematochezia September, Acute prostatitis without hematuria (ICD-10 - N41.0) Push fluids Restart broad spectrum antibiotics. Monitor for fever, chills or hematuria. September, Benign prostatic hyperplasia with lower urinary tract symptoms (ICD-10 - N40.1) Initiated Flomax f/u September, Gastroesophageal reflux disease with esophagitis without hemorrhage (ICD-10 - K21.00) Diet instructions: Smaller portions, avoid eating and laying flat, avoid eating or drinking prior to bedtime. Weight loss. September, Other retention of urine (ICD-10 - R33.8) Freeman in place w/ Flomax intiated. f/u , will likely remove freeman September, Dependence on renal dialysis (ICD-10 - Z99.2) [employer] Other 05-09-2023 [facility]05-09-2023 History of Present illness Narrative* Meryl Berger MD, PhD - 09/23/2022 4:00 PM EDT [facility] - Follow Up Visit REASON FOR VISIT: Post- operative care ESTABLISHED DIAGNOSIS: S/P RYGB, ischemic bowel, intermittent pSBO, GI bleed, upper GI polyposis, not on TPN SURGERY: yes DATE OF SURGERY: 08/01/22 TYPE OF SURGERY: Exploratory laparotomy with extensive lysis of adhesion, takedown of previous gastrojejunostomy, gastrogastric anastomosis, takedown of previous gastrojejunostomy between remnant stomach and jejunum, resection of the previous alimentary limb, which was 25 cm, remodeling by removingdilated previous jejunojejunostomy site, ventral hernia repair CURRENT COMPLAINT(S): 1.5 month ost op, daily BM. weight loss, FITO on CKD on dialysis Anatomy: reconstructed gastro-gastrostomy, reconstruct Jej-jej, 160cm SB from LoT, +ICV, through entire colon, rectum, anus Interval History: Mele Sky is a 66 year old male from [facility] ([address]) with a history of DJD, kidney stones, and morbid obesity s/p RYGB (1998 or 2003). He suffered from internal herniation with SBO, ischemic bowel, and septic shock in August 2011 requiring emergent exp lap, reduction of internal hernia, extensive SBR (mostly jejunal), and partial omentectomy ( 2). Bowel reconstruction was performed a few days later with pyloroplasty and ventral hernia repair(09/16/11) complicated by severe anemia and syncopal episode with hypotension secondary to GIB, renalfailure (ischemic nephropathy) requiring dialysis for ~1yr, and PE (spring 2012). The patient continued to suffer with intermittent bouts of SBO and constipation treated conservatively. 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 Preliminary pathology from stomach was negative for malignancy per records. 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 The patient transferred to [facility] 07/28/[address] Berger where repeat EGD showed a gastrojejunal anastomosis to both the gastric pouch and gastric remnant. On 08/01, he underwent exploratory laparotomywith extensive lysis of adhesion, takedown of previous gastrojejunostomy, gastrogastric anastomosis, takedown of previous gastrojejunostomy between remnant stomach and jejunum, resection of the previous alimentary limb, which was 25 cm, remodeling by removing dilated previous jejunojejunostomy site, ventral hernia repair. Transferred to [facility] once stable. Freeman was removed on POD #2, NG tube was removed once he started having bowel movements. DORYS drains were monitored daily for any leaks of bleeding. He completed his post operative antibiotics. He was started on TPN for nutrition 08/02/22 - 08/12/22. Once he was able to consume enough calories TPN was stopped and labs monitored. Nephrology was following the patient forelevated creatinine and hypernatremia. His UOP was normal and all other electrolytes stable. Pt to follow up with local Nephrology for close monitoring after discharge. At follow up visit on 08/28/22 pt return to [facility], had labs completed prior to visit. Reported appetite good, eating GIS diet, 3 meals per day, drinking 1.6- 1.7L of fluid per day, having 1-2 BMs/day, semi formed to formed consistency, incision well healed, wt down from 92.2kg/203lb (08/12/22-hospital) to 83.7kg/184lb/BMI 25. Unable to get local nephrology apportionment. Consult nephrology and nutrition Since last visit: Pt admitted to [facility] 09/08-09/11/22, sCr 9, nephrology consulted, HD initiated. Current Outpatient Medications Medication Sig Dispense Refill ferrous sulfate 325 mg (65 mg iron) tablet Take 1 tablet by mouth once daily. 30 tablet 2 calcium citrate (CALCITRATE) 200 mg (950 mg) tab Take 1 tablet by mouth twice daily. 60 tablet 2 ergocalciferol 50,000 unit capsule (VITAMIN D2, DRISDOL) Take 1 capsule by mouth two times a week. [address] (PROTONIX) 40 mg tablet Take 1 tablet by mouth twice daily before meals at 6am and 4pm 60 tablet 2 therapeutic multivitamin-minerals (THERA-M PLUS) 9 mg iron-400 mcg tablet Take 1 tablet by mouth once daily. 30 tablet 2 ondansetron (ZOFRAN) 4 mg tablet Take 1 tablet by mouth every 12 hours as needed for nausea/vomiting. 20 tablet 0 No current facility-administered medications for this visit. ALLERGIES Allergen Reactions Shellfish Containin* Anaphylaxis LABS: CMP: Glucose 89 08/28/2022 BUN 81 08/28/2022 Creatinine 7.54 08/28/2022 Sodium 139 08/28/2022 Potassium 4.5 08/28/2022 Chloride 110 08/28/2022 CO2 Content, Venous 16 08/28/2022 Protein, Total 6.0 08/28/2022 Albumin 3.5 08/28/2022 Calcium, Total 8.1 08/28/2022 Alkaline Phosphatase 77 08/28/2022 Bilirubin, Total 0.3 08/28/2022 AST 19 08/28/2022 ALT 17 08/28/2022 Hemoglobin (g/dL) Date Value 08/28/2022 8.8 Hematocrit (%) Date Value 08/28/2022 26.8 WBC (k/uL) Date Value 08/28/2022 7.85 Platelet Count (k/uL) Date Value 08/28/2022 204 Magnesium (mg/dL) Date Value 08/28/2022 2.1 Phosphorus Date Value Ref Range Status 08/28/2022 5.5 (H) 2.7 - 4.8 mg/dL Final NUTRITION ASSESSMENT: Oral/Supplements: Regular, low sodium; Boost ONS EN: No TPN: no, 08/02/22 - 07/15/22 in hospital Central Line Access: none - CRBSI: none - Central Vein Thrombosis: no - Frequent Dehydration: no - Bone Health: unknown, no dxa on file - Liver Dysfunction: no - Previous Liver Biopsy: no Anthropometrics: Height: 6' (1.829cm) Wt Hx: 94kg/207lb (02/10/13); 92.2kg/203lb (08/12/22-hospital); 83.7kg/184lb (09/27/22-office); (09/23/22-home) - BMI 25 CURRENT IMAGES: No new images to view This patient was seen and examined with Dr. Meryl Berger MD Signed by: Marysol Moncada RD Portions of this note may have been copied from previous notes. Copied portions have been updated for 09/23/22 [facility] STAFF PHYSICIAN NOTE OF PERSONAL INVOLVEMENT IN CARE I have reviewed the consult note obtained and documented by the clinician and I personally participated in the alvarez components. Outside records, labs, and x-rays obtained and reviewed. Risks and Benefits of each therapy were discussed with the patient and family in full details. I spent 30 minutes in this visit, with more than 50% of the time devoted to patient counseling.The following comments revise or confirm relevant alvarez components of the note. VIRTUAL VISIT FOLLOW UP I have communicated my name and active licensure. The patient's identity and physical location wereverified at the time of this visit. Either the patient or their legal financial services sales representative has been informed of the risks and benefits of -- and alternatives to -- treatment through a remote evaluation andconsents to proceed with the evaluation remotely. I had a virtual visit with Mr. 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 General - Normal, healthy, cooperative, in no acute distress Able to interact verbally by video conference Psych - ORIENTATION: normal to time place, person and situation Mood/Affect: AFFECT AND MOOD: Normal Head/Neuro - Normal size and shape Facial appearance normal Pulmonary - respiratory effort normal Cardiovascular - patient describes extremities normal, warm, no cyanosis,no clubbing, and no edema Abdominal - Performed Flat, Visible protrusions or hernias: No Incisions/scars: None, Areas of pain/tenderness: denies Skin - abnormal lesions not visualized Motor - patient seen sitting with Normal appearing strength and coordination Anorectal exam - Not Performed IMPRESSION and RECOMMENDATION: This is a 66 YO Male, s/p takedown of previous gastrojejunostomy, gastrogastric anastomosis, takedown of previous gastrojejunostomy between remnant stomach and jejunum, resection of the previous alimentary limb, which was 25 cm, remodeling by removing dilated previous jejunojejunostomy site, ventral hernia repair. He is now doing well without need of nutritional support. Eating well and maintaining weight. Meryl Berger MD, PhD 09/22/2022 [facility] Evaluation note* Diagnosis Stage 3 chronic kidney disease, unspecified whether stage 3a or 3b CKD (HCC)- Primary SBS (short bowel syndrome) Other and unspecified postsurgical nonabsorption S/P exploratory laparotomy Other postprocedural status documented in this encounter [facility]04-28-2023 Miscellaneous Notes* Telephone Encounter - Marysol Moncada RD - 09/12/2022 1:02 PM EDT Returned call, working on paperwork, pt agreeable to keep [facility] nutrition appointment. Will continue to follow with local nephrology. Pt to start dialysis MWF, will plan for VV when pt returns from [place] trip. Pt's appetite improved, having 1 BM per day or 1 every other day, formed. Wt 175lb on home scale. No edema. Submit new schedule request. Pt to have labs done local prior to visit. Marysol Moncada MS, RD, LD, [facility] * Telephone Encounter - Nico Escobar Coord - 09/12/2022 9:58 AM EDT Yasir called and left message on vm. 1.) He would like to know status of his FMLA paperwork 2.) He said that Nutrition team called him and scheduled an appointment Please call. Celine patient documented in this encounterS[facility]04[facility] Hospital Discharge instructions Follow Up Care 09/12/2022 09:02:49 With:Casper JENKINS, ARLENE Cowan, [facility] Address: When: Unknown [facility] 04-25-2023 Miscellaneous Notes* Telephone Encounter - Marysol Moncada RD - 09/09/2022 7:01 PM EDT Pt got admitted to local hospital, is now established with nephrology and nutrition. Will cancel request for [facility] consults. aMrysol Moncada MS, RD, LD, [facility] * Telephone Encounter - Nico Escobar Coord - 09/09/2022 12:51 PM EDT Patients called and left message on vm. She said that Yasir is at [facility] and they are going to set him up with Nutrition and Nephrology. Please call. Celine patient documented in [facility] encounterS[facility]04-[facility]-2023 Miscellaneous Notes* Telephone Encounter - Marysol Moncada RD - 09/09/2022 12:12 PM EDT Called to check on pt. Pt went to ED yesterday and was admitted to [facility], pt reports Cr went up to 9 with UTI, pt is now established with manager perioperative. Pt is being monitored for possibledialysis. Pt to call once discharged. Will move follow up appointment to next week. Marysol Moncada MS, RD, LD, [facility] documented in this encounterShelby [facility]04-24-2023 Miscellaneous Notes* Telephone Encounter - Marysol Moncada RD - 09/08/2022 10:54 AM EDT Returned call and spoke to pt and pt's . Pt was instructed to follow up with nephrology at hospital discharge. At f/up tele call, pt told coordinator pt's PCP was going to set this up. At f/up visit pt requested our office send referral since PCP was not able to. Referral for nephrology was sent at visit, but pt still not able to get an appointment. Pt and expressed frustration that this was not set up. This coordinator offered suggestions tohelp. First, will resend referral, it is unclear what outside provider will require to get re-established or how long this will take. Will also place consult to [facility] nephrology if they can get him established here. If pt feeling unwell, pt should go to ED. Will f/up with nutrition and nephrology to get pt established. Will send lab orders and set up follow virtual visit with Kaylan Monge PA-C on . Marysol Moncada MS, RD, LD, [facility] * Telephone Encounter - Nico Escobar Coord - 09/08/2022 8:52 AM EDT Anika, patients called and left message on vm. She would like to discuss patients weight loss (185 down to 167). She said that they also haven't heard follow up on other appointments. Please call. Celien patient documented in this encounterS[facility]04-[facility]-2023 Evaluation note* Diagnosis Stage 3 chronic kidney disease, unspecified whether stage 3a or 3b CKD (HCC)- Primary SBS (short bowel syndrome) Other and unspecified postsurgical nonabsorption S/P exploratory laparotomy Other postprocedural status documented in this encounter [facility]04-23-2023 [facility] Miscellaneous Notes* Telephone Encounter - Marysol Moncada RD - 08/28/2022 4:50 PM EDT Addressed at visit today, referral sent. Marysol Moncada MS, RD, LD, [facility] * Telephone Encounter - Janel Garsia - 08/22/2022 11:01 AM EDT Patient attempted to contact a local [facility] to establish care as suggested. He needs a referral sent to [facility] in [place], [place] P:[phone]. Janel Garsia [facility] Post Heart Transplant J3-4 documented in this encounterShelby [facility]04-13-2023 History of Present illness Narrative* Meryl Berger MD, PhD - 08/28/2022 4:30 PM EDT [facility] In Person- Follow Up Visit REASON FOR VISIT: Post- operative care ESTABLISHED DIAGNOSIS: S/P RYGB, ischemic bowel, intermittent pSBO, GI bleed, upper GI polyposis, not on TPN SURGERY: yes DATE OF SURGERY: 08/01/22 TYPE OF SURGERY: Exploratory laparotomy with extensive lysis of adhesion, takedown of previous gastrojejunostomy, gastrogastric anastomosis, takedown of previous gastrojejunostomy between remnant stomach and jejunum, resection of the previous alimentary limb, which was 25 cm, remodeling by removingdilated previous jejunojejunostomy site, ventral hernia repair CURRENT COMPLAINT(S): 1 month post op, urinary incontinence, passing gas, daily BM. Weight loss Anatomy: reconstructed gastro-gastrostomy, reconstruct Jej-jej, 160cm SB from LoT, +ICV, through entire colon, rectum, anus Interval History: Mele Sky is a 66 year old male from [facility] ([address]) with a history of DJD, kidney stones, and morbid obesity s/p RYGB (1998 or 2003). He suffered from internal herniation with SBO, ischemic bowel, and septic shock in August 2011 requiring emergent exp lap, reduction of internal hernia, extensive SBR (mostly jejunal), and partial omentectomy ( 2). Bowel reconstruction was performed a few days later with pyloroplasty and ventral hernia repair(09/16/11) complicated by severe anemia and syncopal episode with hypotension secondary to GIB, renalfailure (ischemic nephropathy) requiring dialysis for ~1yr, and PE (spring 2012). The patient continued to suffer with intermittent bouts of SBO and constipation treated conservatively. 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 Preliminary pathology from stomach was negative for malignancy per records. 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 The patient transferred to [facility] 07/28/[address] Berger where repeat EGD showed a gastrojejunal anastomosis to both the gastric pouch and gastric remnant. On 08/01, he underwent exploratory laparotomywith extensive lysis of adhesion, takedown of previous gastrojejunostomy, gastrogastric anastomosis, takedown of previous gastrojejunostomy between remnant stomach and jejunum, resection of the previous alimentary limb, which was 25 cm, remodeling by removing dilated previous jejunojejunostomy site, ventral hernia repair. Transferred to [facility] once stable. Freeman was removed on POD #2, NG tube was removed once he started having bowel movements. DORYS drains were monitored daily for any leaks of bleeding. He completed his post operative antibiotics. He was started on TPN for nutrition 08/02/22 - 08/12/22. Once he was able to consume enough calories TPN was stopped and labs monitored. Nephrology was following the patient for elevated creatinine and hypernatremia. His UOP was normal and all other electrolytes stable. Pt will need Nephrology follow up for close monitoring after discharge. Presents today for follow up visit, labs completed prior to visit are still pending, Appetite good,eating GIS diet, 3 meals per day, drinking 1.6-1.7L of fluid per day, having 1-2 BMs/day, semi formed to formed consistency, incision well healed, requesting referral to manager perioperative. Current Outpatient Medications Medication Sig Dispense Refill ferrous sulfate 325 mg (65 mg iron) tablet Take 1 tablet by mouth once daily. 30 tablet 2 calcium citrate (CALCITRATE) 200 mg (950 mg) tab Take 1 tablet by mouth twice daily. 60 tablet 2 ergocalciferol 50,000 unit capsule (VITAMIN D2, DRISDOL) Take 1 capsule by mouth two times a week. [address] (PROTONIX) 40 mg tablet Take 1 tablet by mouth twice daily before meals at 6am and 4pm 60 tablet 2 therapeutic multivitamin-minerals (THERA-M PLUS) 9 mg iron-400 mcg tablet Take 1 tablet by mouth once daily. 30 tablet 2 ondansetron (ZOFRAN) 4 mg tablet Take 1 tablet by mouth every 12 hours as needed for nausea/vomiting. 20 tablet 0 No current facility-administered medications for this visit. ALLERGIES Allergen Reactions Shellfish Containin* Anaphylaxis LABS: Testing: CMP: Glucose 76 08/13/2022 BUN 71 08/13/2022 Creatinine 7.43 08/13/2022 Sodium 138 08/13/2022 Potassium 4.8 08/13/2022 Chloride 102 08/13/2022 CO2 Content, Venous 25 08/13/2022 Protein, Total 4.8 08/13/2022 Albumin 2.5 08/13/2022 Calcium, Total 7.3 08/13/2022 Alkaline Phosphatase 60 08/13/2022 Bilirubin, Total 0.2 08/13/2022 AST 14 08/13/2022 ALT 14 08/13/2022 Hemoglobin (g/dL) Date Value 08/13/2022 7.8 Hematocrit (%) Date Value 08/13/2022 23.9 WBC (k/uL) Date Value 08/13/2022 5.10 Platelet Count (k/uL) Date Value 08/13/2022 169 Magnesium (mg/dL) Date Value 08/13/2022 2.3 Phosphorus Date Value Ref Range Status 08/13/2022 4.4 2.7 - 4.8 mg/dL Final NUTRITION ASSESSMENT: Oral/Supplements: No EN: No TPN: no, 08/02/22 - 07/15/22 in hospital Central Line Access: none - CRBSI: none - Central Vein Thrombosis: no - Frequent Dehydration: no - Bone Health: unknown, no dxa on file - Liver Dysfunction: no - Previous Liver Biopsy: no Anthropometrics: Height: 6' (1.829cm) Wt Hx: 94kg/207lb (02/10/13); 92.2kg/203lb (08/12/22-hospital); - BMI 27.5 CURRENT IMAGES: This patient was seen and examined with Dr. Meryl Berger MD Signed by: Marysol Moncada RD Portions of this note may have been copied from previous notes. Copied portions have been updated for 08/28/22 [facility] STAFF PHYSICIAN NOTE OF PERSONAL INVOLVEMENT IN CARE I have reviewed the consult note obtained and documented by the clinician and I personally participated in the alvarez components. Outside records, labs, and x-rays obtained and reviewed. Risks and Benefits of each therapy were discussed with the patient and family in full details. I spent 30 minutes in this visit, with more than 50% of the time devoted to patient counseling.The following comments revise or confirm relevant alvarez components of the note. PHYSICAL EXAM: BP 134/87 Pulse 92 Temp 36.9 C (98.5 F) (Temporal) Resp 14 Ht 182.9 cm (6') Wt 83.7 kg (184 lb 8 oz) SpO2 98% BMI 25.02 kg/m General appearance: well appearing, alert, in no acute distress, and well- hydrated, well nourished Skin: no rashes HEENT: normocephalic, EOMI, anicteric sclerae, moist oral mucosa, external ears & nose normal Musculoskeletal: Motor and sensory appear to be normal. Muscular strength intact Respiratory: Unlabored on room air Cardiovascular: regular rate Abdomen: nondistended, soft, nontender Masses:no Organomegaly:no G-Tube no J-Tube: no Stoma:no Fistula:no Abdominal Wall Contraction:no Extremities: +1 LE edema Neuro: Gait normal. Sensation grossly intact. Psychiatric: Cooperative and agreeable ASSESSMENT & PLAN: Has lost wt since surgery. 185 lb today. Balancing gastro- diet with renal diet. BM one per day now. Follow up with Nutrition Team to see the status of his nutrition. New Nephrology referral sent to [facility]rology, Dr He Ordonez MD in [facility]. The patient was seen & examined with Meryl Berger MD and plan established by Meryl Berger MD Portions of the HPI have been copied from previous notes and have been edited for accuracy with updates from today, August 28, 2022. Kaylan Monge PA-C 08/28/2022 [facility] STAFF PHYSICIAN NOTE OF PERSONAL INVOLVEMENT IN CARE I have reviewed the consult note obtained and documented by the clinician and I personally participated in the alvarez components. Outside records, labs, and x-rays obtained and reviewed. Risks and Benefits of each therapy were discussed with the patient and family in full details. I spent 30 minutes in this encounter, with more than 50% of the time devoted to patient counseling.The following comments revise or confirm relevant alvarez components of the note. Meryl Berger MD, PhD documented in this encounterShelby [facility]04-04-2023 Miscellaneous Notes* Telephone Encounter - Marysol Moncada RD - 08/19/2022 4:41 PM EDT Yasir reports feeling fantastic, having formed stool, passing gas with less surprise, still on GISdiet. Appetite good, eating more at home than when prior to surgery when at work. Currently eating 3 meals per day, stops before getting too full, still eating with caution. Having 1 BM, sometimes 2 BMs/day, no struggle, small, semi formed to formed. Drinking three [facility] fluid bottles, ~1600-1700ml per day, water and cranberry juice,experiencing some urinary incontinence from freeman. No new wt since returning home. All surgical lenora removed, pt states incision looks good, no areas of concern. Pt is established with PCP, Dr. Ivan Lloyd with [facility] in [place], [place]. In order toget re established with manager perioperative, needs referral from PCP. Pt getting appointments set up. Plan for in person f/up visit, labs prior to visit, on 09/07 at 4:30. Marysol Moncada MS, RD, LD, [facility] * Telephone Encounter - Nico Escobar Coord - 08/19/2022 12:48 PM EDT Mele called and left message on to schedule his follow up appointment. Please call. * Telephone Encounter - Nico Escobar Coord - 08/19/2022 11:35 AM EDT Mele called and left message on to schedule an appointment. Please call. * Telephone Encounter - Nico Escobar Coord - 08/18/2022 1:47 PM EDT Mele called and left message on to schedule a follow up appointment. Please call [phone]. Celine patient documented in this encounterShel[facility]03-28-2023 NoteJ.[facility]. [facility]03-[facility]-2023 NoteJ[facility]03-[facility]-2023 NoteJ[facility]03-27-2023 NoteJ[facility]03-26-2023 Note [facility]03-[facility]-2023 NoteJ[facility]03-[facility]-2023 NoteJ[facility]03-[facility]-2023 NoteJ[facility] 08-08-2022 NoteJ.[facility]. [facility]03-24-2023 NoteJ[facility]03-24-2023 NoteJ[facility]03-23-2023 NoteJ[facility]03-23-2023 NoteJ[facility]03-22-2023 Note [facility]-2023 NoteJ[facility]03-21-2023 NoteJ[facility]03-[facility]-2023 NoteJ[facility] 08-04-2022 NoteJ[facility]03-[facility]-2023 NoteJ[facility]03-[facility] History of Past illness Narrative* Problem Noted Date Resolved Date On total parenteral nutrition (TPN) 08/04/2022 08/12/2022 Last Assessment & Plan: Assessment: TPN initiated due to prolonged NPO status, severe protein calorie malnutrition. PLAN: Continue TPN. Nutrition team following. Hypokalemia 08/04/2022 08/12/2022 Last Assessment & Plan: Assessment: noted on AM labs. PLAN: Monitor and replete as needed. documented as of this encounter (statuses as of 08/20/2022) [facility]03-[facility] History of Past illness Narrative* Problem Noted Date Resolved Date On total parenteral nutrition (TPN) 08/04/2022 08/12/2022 Last Assessment & Plan: Assessment: TPN initiated due to prolonged NPO status, severe protein calorie malnutrition. PLAN: Continue TPN. Nutrition team following. Hypokalemia 08/04/2022 08/12/2022 Last Assessment & Plan: Assessment: noted on AM labs. PLAN: Monitor and replete as needed. documented as of this encounter (statuses as of 08/29/2022) [facility]03-[facility] History of Past illness Narrative* Problem Noted Date Resolved Date On total parenteral nutrition (TPN) 08/04/2022 08/12/2022 Last Assessment & Plan: Assessment: TPN initiated due to prolonged NPO status, severe protein calorie malnutrition. PLAN: Continue TPN. Nutrition team following. Hypokalemia 08/04/2022 08/12/2022 Last Assessment & Plan: Assessment: noted on AM labs. PLAN: Monitor and replete as needed. documented as of this encounter (statuses as of 09/08/2022) [facility]03-[facility] History of Past illness Narrative* Problem Noted Date Resolved Date On total parenteral nutrition (TPN) 08/04/2022 08/12/2022 Last Assessment & Plan: Assessment: TPN initiated due to prolonged NPO status, severe protein calorie malnutrition. PLAN: Continue TPN. Nutrition team following. Hypokalemia 08/04/2022 08/12/2022 Last Assessment & Plan: Assessment: noted on AM labs. PLAN: Monitor and replete as needed. documented as of this encounter (statuses as of 09/09/2022) [facility]03-[facility] History of Past illness Narrative* Problem Noted Date Resolved Date On total parenteral nutrition (TPN) 08/04/2022 08/12/2022 Last Assessment & Plan: Assessment: TPN initiated due to prolonged NPO status, severe protein calorie malnutrition. PLAN: Continue TPN. Nutrition team following. Hypokalemia 08/04/2022 08/12/2022 Last Assessment & Plan: Assessment: noted on AM labs. PLAN: Monitor and replete as needed. documented as of this encounter (statuses as of 09/10/2022) [facility]03-[facility] History of Past illness Narrative* Problem Noted Date Resolved Date On total parenteral nutrition (TPN) 08/04/2022 08/12/2022 Last Assessment & Plan: Assessment: TPN initiated due to prolonged NPO status, severe protein calorie malnutrition. PLAN: Continue TPN. Nutrition team following. Hypokalemia 08/04/2022 08/12/2022 Last Assessment & Plan: Assessment: noted on AM labs. PLAN: Monitor and replete as needed. documented as of this encounter (statuses as of 09/12/2022) [facility]03-[facility] History of Past illness Narrative* Problem Noted Date Resolved Date On total parenteral nutrition (TPN) 08/04/2022 08/12/2022 Last Assessment & Plan: Assessment: TPN initiated due to prolonged NPO status, severe protein calorie malnutrition. PLAN: Continue TPN. Nutrition team following. Hypokalemia 08/04/2022 08/12/2022 Last Assessment & Plan: Assessment: noted on AM labs. PLAN: Monitor and replete as needed. documented as of this encounter (statuses as of 09/13/2022) [facility]03-20-2023 History of Past illness Narrative* Problem Noted Date Resolved Date On total parenteral nutrition (TPN) 08/04/2022 08/12/2022 Last Assessment & Plan: Assessment: TPN initiated due to prolonged NPO status, severe protein calorie malnutrition. PLAN: Continue TPN. Nutrition team following. Hypokalemia 08/04/2022 08/12/2022 Last Assessment & Plan: Assessment: noted on AM labs. PLAN: Monitor and replete as needed. documented as of this encounter (statuses as of 10/14/2022) [facility]03-20-2023 History of Past illness Narrative* Problem Noted Date Resolved Date On total parenteral nutrition (TPN) 08/04/2022 08/12/2022 Last Assessment & Plan: Assessment: TPN initiated due to prolonged NPO status, severe protein calorie malnutrition. PLAN: Continue TPN. Nutrition team following. Hypokalemia 08/04/2022 08/12/2022 Last Assessment & Plan: Assessment: noted on AM labs. PLAN: Monitor and replete as needed. documented as of this encounter (statuses as of 10/21/2022) [facility]03-20-2023 History of Past illness Narrative* Problem Noted Date Diagnosed Date Resolved Date On total parenteral nutrition (TPN) 08/04/2022 08/12/2022 Last Assessment & Plan: Assessment: TPN initiated due to prolonged NPO status, severe protein calorie malnutrition. PLAN: Continue TPN. Nutrition team following. Hypokalemia 08/04/2022 08/12/2022 Last Assessment & Plan: Assessment: noted on AM labs. PLAN: Monitor and replete as needed. documented as of this encounter (statuses as of 01/29/2023) [facility]03-20-2023 History of Past illness Narrative* Problem Noted Date Diagnosed Date Resolved Date On total parenteral nutrition (TPN) 08/04/2022 08/12/2022 Last Assessment & Plan: Assessment: TPN initiated due to prolonged NPO status, severe protein calorie malnutrition. PLAN: Continue TPN. Nutrition team following. Hypokalemia 08/04/2022 08/12/2022 Last Assessment & Plan: Assessment: noted on AM labs. PLAN: Monitor and replete as needed. documented as of this encounter (statuses as of 06/23/2023) [facility]03-20-2023 History of Past illness Narrative* Problem Noted Date Diagnosed Date Resolved Date On total parenteral nutrition (TPN) 08/04/2022 08/12/2022 Last Assessment & Plan: Assessment: TPN initiated due to prolonged NPO status, severe protein calorie malnutrition. PLAN: Continue TPN. Nutrition team following. Hypokalemia 08/04/2022 08/12/2022 Last Assessment & Plan: Assessment: noted on AM labs. PLAN: Monitor and replete as needed. documented as of this encounter (statuses as of 07/09/2023) [address]20-2023 History of Past illness Narrative* Problem Noted Date Diagnosed Date Resolved Date On total parenteral nutrition (TPN) 08/04/2022 08/12/2022 Last Assessment & Plan: Assessment: TPN initiated due to prolonged NPO status, severe protein calorie malnutrition. PLAN: Continue TPN. Nutrition team following. Hypokalemia 08/04/2022 08/12/2022 Last Assessment & Plan: Assessment: noted on AM labs. PLAN: Monitor and replete as needed. documented as of this encounter (statuses as of 07/09/2023) [facility]03-20-2023 History of Past illness Narrative* Problem Noted Date Diagnosed Date Resolved Date On total parenteral nutrition (TPN) 08/04/2022 08/12/2022 Last Assessment & Plan: Assessment: TPN initiated due to prolonged NPO status, severe protein calorie malnutrition. PLAN: Continue TPN. Nutrition team following. Hypokalemia 08/04/2022 08/12/2022 Last Assessment & Plan: Assessment: noted on AM labs. PLAN: Monitor and replete as needed. documented as of this encounter (statuses as of 07/15/2023) [facility]03-20-2023 History of Past illness Narrative* Problem Noted Date Diagnosed Date Resolved Date On total parenteral nutrition (TPN) 08/04/2022 08/12/2022 Last Assessment & Plan: Assessment: TPN initiated due to prolonged NPO status, severe protein calorie malnutrition. PLAN: Continue TPN. Nutrition team following. Hypokalemia 08/04/2022 08/12/2022 Last Assessment & Plan: Assessment: noted on AM labs. PLAN: Monitor and replete as needed. documented as of this encounter (statuses as of 07/15/2023) [facility]03-19-[facility] Note [facility] Miscellaneous Notes* Telephone Encounter - Tita Delgado - 07/31/2022 12:54 PM EDT Case was discussed with Dr. Berger this AM. Images from UGI SBFT and CT Angio Abd were reviewed. Patient was noted with low H/H overnight and was transferred to ICU this AM. Dr. Berger requests a joint reading of the CT Angio Abd images with radiology to help interpret the strange anatomical configuration. [facility] Note [facility] History of Past illness Narrative* Problem Noted Date Resolved Date Hypernatremia 07/30/2022 07/31/2022 Last Assessment & Plan: . Sodium Date Value Ref Range Status 07/30/2022 144 136 - 144 mmol/L Final 07/30/2022 143 136 - 144 mmol/L Final 07/29/2022 145 (H) 136 - 144 mmol/L Final Nephrology following Hypernatremia resolving documented as of this encounter (statuses as of 07/31/2022) [facility]03-15-2023 [facility] Note [facility]-20[facility] Miscellaneous Notes* Telephone Encounter - Nico Mckeon 07/29/2022 12:[address] Berger accepted a hospital transfer on this patient and he came in over night. Diagnosis: GI Bleed. Dr. Berger is requesting op note from 2011, which I have submitted a request to [employer] to obtain urgently. He is also requesting the op note from the bypass surgery, which per notes in Care Everywhere looks to have been done around 1998- we don't know which hospital. I called patients emergency contact, which is patients Anika at [phone] and left her a message to call us back. I will see if she knows where this was done at. Will also request financial clearance. Case opened in [place]. [facility] History of Present illness Narrative* FOZIA SNYDER - 07/29/2022 3:02 AM EDT Report called to Heidi THOMPSON at [facility]. All pertinent hist pry and current POC reviewed. All questions asked and call back number given. Transport arrived to room to transport pt. * Corey Amador - 07/29/2022 2:15 AM EDT SPIRITUAL CARE DEPARTMENT - [facility] PROGRESS NOTE Shift date: 07.28.2022 Shift day: Thursday Shift # 2 Room # 3004/3004-01 Name: Mele Sky Jewish: unknown Place of jewish: unknown Referral: Routine Visit Admit Date & Time: 07/28/2022 5:20 AM Assessment: Mele Sky is a 66 y.o. male in the hospital with family bedside. Upon entering the room ad copy writer observes family and patient appearing to be calm and coping. Family seemed to indicate that no emotional or spiritual support is needed at this time. Intervention: Counter Weigher introduced self and title as cause analyst Counter Weigher offered space for the patient and family to express feelings, needs, and concerns and provided a ministry presence. Outcome: Patient and family appear to be calm and coping Plan: Chaplains will remain available to offer spiritual and emotional support as needed. . Spiritual Care Department [facility] [phone] 07/28/222029 Encounter Summary Service Provided For: Patient and family together Referral/Consult From: Rounding Support System Family members Last Encounter 07/28/22 Complexity of Encounter Low Begin Time 2029 End Time 2039 Total Time Calculated 10 min Encounter Type Initial Screen/Assessment Assessment/Intervention/Outcome Assessment Calm;Coping Intervention Explored/Affirmed feelings, thoughts, concerns Outcome Coping * Adriana Guaman RN - 07/28/2022 3:18 PM EDT 1500 Arrive to in-patient room 3004, ICU with IVs & lines intact * Adriana Guaman RN - 07/28/2022 2:34 PM EDT Pathologist states results benign gastric mucosa, results shared with Dr. Vale * Adriana Guaman RN - 07/28/2022 2:[address] Matta in the room for professional consult Dr Shepherd returns to room for further discussion * Adriana Guaman RN - 07/28/2022 1:[address] Shephedr arrives to room for requested professional consult by Dr. Vale * Adriana Guaman RN - 07/28/2022 1:44 PM EDT Add on case in OR. ICU staff did not give enema due to unknown procedure time. * Pamela Pat MD - 07/28/2022 1:13 PM EDT Progress Note Patient examined at bedside this morning. His in the room. He is awake, does appear pale. Vitals reviewed: He is not tachycardic, soft pressures of SBP of 110. He is currently getting the 5th pRBC and 1 unit FFP. Due to patient being a difficult peripheral IV stick, we were able to establish a right femoral CVCand right artery line for frequent lab draws. Patient labs were reviewed after 5 unit pRBC, his hemoglobin is 6.5, GI on board. Troponin is 58, likely due to demand ischemia. Cr of 6.84. Nephro on board Assessment/Plan Neuro -Patient is awake and alert -Neuro checks per protocol Cardiovascular: Hypovolumic Shock secondary to blood loss -Pt is hemodynamically stable without pressure support -HR in 80s, SBP in 120s -Troponin 58, likely demand ischemia vs CKD -EKG shows -Lactic wit Respiratory -Pt on 2L NC with saturations of 100% -Will continue to monitor Nephro - Acute on CKD, Hypokalemia, -Patient BUN/Cr 114/6.84 -He reports he still makes -Nephrology on board: they recommend sodium bicarb gtt, US of kidney, and possible need for dialysis is kidney functions are worsening) -UA pending - Ca of 6 GI - There is concern for marginal ulcer -Pt NPO -Pt on Protonix gtt -GI on board: they are taking patient to OR for emergent EGD/Flex Sig Heme - GI bleed of unknown source -H/H after 5 units pRBC is 6.5 -Coags done -Total products given: 6u PRBC, 1u FFP ID -Pt afebrile -No leukocytosis -Blood cultures pending PPX -DVT - EPC cuff -Pt on protonix Dispo -Pt to remain in ICU - and pt updated on plan documented in this encounterBON [employer] Work Phone: 1(874) 949-305703-12-2023 History and physical note Author Jaguar Diaz [facility] July 27, 2022 8:55pm Note Date/Time July 27, 2022 8:5 5pm [facility] [address] [place] [address] Hospitalist H&P Signed Patient: Mele Sky MR#: [id number] : 1955 Acct:[id number] Age/Sex: 66 / M Adm Date: 3 Loc: Room: [address] [place] [address] Type: ADM IN Attending Dr: Tk Shah MD Copies to: DO Jaguar Kc MD Obaydah M Daromar, MD~ HPI DATE OF EXAMINATION: 07/27/22 CHIEF COMPLAINT: Syncope, nausea and vomiting HISTORY OF PRESENT ILLNESS: 66-year-old gentleman with history of gastric bypass surgery, necrotic bowel in 2012 from a gangrenous intra-abdominal hernia resulting in acute kidney shutdownwhere he went for hemodialysis for few years, currently stage III chronic kidneydisease, hypertension went to the emergency department at [facility] for brief episode of syncope. Patient has been having constipation for last fewdays had nausea this morning. He was dry heaving and was planning to come to the hospital. Patient went to the restroom and as he was coming well had a witnessed syncope. He lost his consciousness for a brief period of time. He was diaphoretic and appeared pale. In the emergency department at [facility] patient was found to be anemic with H&H 7 and 21, BUN 118, creatinine 8.4 with potassium 3.4. His bicarb was 13. Patient was given 2 ampoule of bicarb IV push. His CAT scan of the brain did not show any acute pathology. X-ray abdomen showed multiple punctate calcifications overlying the left pole of the kidney. Patient did not have any fever or chills. He was sent to the [facility] for tertiary care as did not have any manager perioperative. Upon arrival here in the [facility] patient seems to be stable. He did not have any chest pain, lightheadedness, shortness of breath, nausea or vomiting. He did have some dizzy feeling as he was changing his posture from sitting to standing up. He denied any GI bleed. His last colonoscopy endoscopy was done in 2013. Due to the gastric bypass surgery his scope has always been difficult. Patient does not see any manager perioperative as such. His primary care physician normally checks on his kidney function test. As per patient last February 2022 his kidney numbers where stableat this stage III chronic kidney disease. Review of Systems Review of Systems All other systems reviewed & are negative unless noted below or in HPI Constitutional Constitutional: Denies body ache(s), Denies chills and Denies headache(s) Eyes Eyes: Denies blurry vision and Denies photophobia ENT Ears, Nose, Mouth, and Throat: Denies headache(s) Cardiovascular Cardiovascular: Denies chest pain, Denies dyspnea on exertion, Denies rapid heart rate and Denies syncope Respiratory Respiratory: Denies dyspnea on exertion and Denies hemoptysis Gastrointestinal Gastrointestinal: Denies hematochezia and Denies melena Musculoskeletal Musculoskeletal: Denies deformity and Denies muscle weakness Integumentary/Breasts Skin/Breast: Denies nail changes, Denies rash and Denies unusual bruising Neurologic Neurologic: Denies confusion, Denies convulsions, Denies headache(s), Denies memory loss and Denies syncope Psychiatric Psychiatric: Denies confusion, Denies hallucinations and Denies memory loss Endocrine Endocrine: Denies heat intolerance Hematologic/Lymphatic Hematologic/Lymphatic: Denies easy bruising PMFSH Vaccinated for COVID-19?: Yes Medical History (Updated 07/27/22 @ 20:52 by Jaguar Diaz MD) Anemia Hemodialysis access, fistula mature History of necrotic bowel Pulmonary embolism 2000 Surgical History (Updated 07/27/22 @ 20:52 by Jaguar Diaz MD) H/O gastric bypass Family History (Updated 07/27/22 @ 20:23 by Abeba Gutierrez RN) Father Lung cancer Mother Diabetes Social History Smoking Status: Never smoker Substance Use Type: None Meds Medications and Allergies Allergies shellfish derived Allergy (Verified 07/27/22 20:43) Anaphylaxis Home Medications ferrous sulfate 325 mg (65 mg iron) tablet (iron) 325 mg PO DAILY 07/27/22 [History Confirmed 07/27/22] multivitamin 1 tab PO DAILY 07/27/22 [History Confirmed 07/27/22] Exam Physical Exam Vital Signs: Temp Pulse Resp BP Pulse Ox O2 Del Method 98.2 F 101 H 18 129/81 98 Room Air 07/27/22 20:08 07/27/22 20:08 07/27/22 20:08 07/27/22 20:08 07/27/22 20:08 07/27/22 20:25 Const General: cooperative, no acute distress and well hydrated Orientation: alert, awake and oriented x3 HEENT Head: normocephalic and atraumatic Face and sinus: normal facial exam and sinuses nontender Mouth: oral mucosae normal Eyes Conjunctivae: conjunctivae normal Sclera: sclerae normal Neck Thyroid: thyroid normal Carotids: normal carotid upstroke Lymphatic: no lymphadenopathy noted Resp Effort & Inspection: normal respiratory effort, able to speak in complete sentences and symmetric chest movement Auscultation: clear to auscultation bilaterally Cardio Palpation: normal PMI Rate: regular rate Rhythm: regular rhythm Heart Sounds: S1 normal and S2 normal Pulses: dorsalis pedis present GI Palpation: soft and no hepatosplenomegaly Auscultation: normal bowel sounds Skin General: no rashes or lesions noted and turgor normal Neuro General: tone normal and moves all extremities Speech: speech normal Gait: normal gait Motor: muscle tone normal throughout Sensory Exam: no sensory deficits noted Extrem General: full ROM Psych Appearance: grossly normal Mental Status: mental status grossly normal Mood: congruent mood Affect: normal affect Attitude: cooperative Judgment: judgment good A&P - Hospitalist Assessment/Plan (1) Uremia: (2) FITO (acute kidney injury): (3) Metabolic acidosis: (4) ABLA (acute blood loss anemia): (5) Syncope and collapse: (6) H/O gastric bypass: (7) History of necrotic bowel: Plan Patient will be admitted under medical stepdown care unit for close monitoring of cardiorespiratory and neuro status. He has metabolic acidosis right now we will be giving intravenous bicarb along with bicarb drip. Nephrology will be consulted. His syncope is most likely due to uremia and other electrolyte imbalance. I do not think it is originated from neuro cardiologic etiology. Also patient has profound anemia. CKD can cause the anemia because of low erythropoietin. He does not appear to have any active bleeding as such. However we will do stool for occult blood test. Patient will be having GI prophylaxis with PPI. DVT prophylax will be done with heparin. We will do ironwork-up along with B12 folic acid. Patient has history of gastric bypass surgery so pernicious anemia could also be no differentials. Patient will have renal ultrasound tomorrow. At this time he does not have any hyperkalemia so immediate hemodialysis is not warranted. He does have a fistula on the right arm does not appear to functioning. Patient last had hemodialysis in 2012. Plan of care was discussed with his in the room. CODE STATUS full. Total time spent on this admission encounter was about 53 minutes. Documented By: Jaguar Diaz MD 07/27/222041 Signed By: <Electronically signed by Jaguar Diaz MD> 07/27/222054 [facility] Work Phone: 1(487) 932-679103-12-2023 [id number]: Called transfer line, talked to [facility]. Dr. Zaldivar called back and talked to Dr. Suggs which [facility]. [facility] : 4 progressive 4023 Report [id number] Future Appointments Appointment Date:10/15/2022 09:45:00 AM Scheduled Provider:Barby Shirley MD Location:[facility] Appointment Type:URO Office Visit [facility] Evaluation + Plan note Future Appointments Appointment Date:11/27/2022 07:45:00 AM Scheduled Provider:Barby Shirley MD [facility] Appointment Type:URO Office Visit [facility] Evaluation + Plan note Future Appointments Appointment Date:01/29/2023 10:15:00 AM Scheduled Provider:Barby Shirley MD Location:[facility] Appointment Type:URO Office Visit [facility] evaluation + Plan note Future Appointments Appointment Date:03/10/2023 01:15:00 PM Scheduled Provider:Barby Shirley MD Location:[facility] Appointment Type:URO Procedure 30 min [facility] evaluation + Plan note Future Appointments Appointment Date:11/12/2023 02:00:00 PM Scheduled Provider:Barby Shirley MD Location:[facility] Appointment Type:URO Office Visit [facility] evaluation + Plan note Future Appointments Appointment Date:07/21/2023 10:15:00 AM Scheduled Provider: Location:[facility] Appointment Type:Surgery FT Appointment Date:11/13/2023 01:45:00 PM Scheduled Provider:Barby Shirley MD Location:[facility] Appointment Type:URO Office Visit [facility] evaluation note* Diagnosis Onset Date Resolution Status ABLA (acute blood loss anemia) acute FITO (acute kidney injury) ac [place] H/O gastric bypass acute History of necrotic bowel ac [place] Metabolic acidosis acute Syncope and collapse acute Uremia [facility] Work Phone: Evaluation note* Diagnosis GI bleed- Primary Hemorrhage of gastrointestinal tract, unspecified Melena Blood in stool Acute posthemorrhagic anemia Gastric bypass status for obesity Bariatric surgery status Melena Blood in stool documented in this encounter [facility] Work Phone: evaluation note* Diagnosis Lower GI bleeding- Primary Hemorrhage of gastrointestinal tract, unspecified documented in this encounter [facility] note* Diagnosis SBS (short bowel syndrome)- Primary Other and unspecified postsurgical nonabsorption S/P exploratory laparotomy Other postprocedural status documented in this encounter [facility] note* Diagnosis S/P exploratory laparotomy- Primary Other postprocedural status documented in this encounter [facility] note* Diagnosis S/P exploratory laparotomy- Primary Other postprocedural status [facility] encounter [facility]* Diagnosis Onset Date Resolution Status ABLA (acute blood loss anemia) acute FITO (acute kidney injury) ac [place] H/O gastric bypass acute History of necrotic bowel ac [place] Metabolic acidosis acute Syncope and collapse acute Uremia acute Acute kidney injury superimp osed on chronic kidney disease acute Acute urinary retention acut e FITO (acute kidney injury) ac [place] Anemia acute H/O gastric bypass acute History of necrotic bowel ac [place] Hyperparathyroidism, secondary renal acute Hypokalemia acute Metabolic acidosis acute Uremia acute UTI (urinary tract infection) acute [facility] Work Phone: Evaluation note* Diagnosis S/P exploratory laparotomy- Primary Other postprocedural status SBS (short bowel syndrome) Other and unspecified postsurgical nonabsorption [facility]No Cardiovascular Simulation Other evaluekxui note* Diagnosis ESRD on dialysis (HCC)- Primary End stage renal disease Pre-transplant evaluation for ESRD (end stage renal disease) Other specified pre-operative examination documented [facility] this encounter [facility]* Diagnosis Onset Date Resolution Status 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, chronic, 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 acute Anemia acute Closed left hip fracture acu te ESRD on hemodialysis acute Hyperparathyroidism, secondary renal acute [facility] Work Phone: evaluywuej note* Diagnosis Onset Date Resolution Status Anemia acute Closed left hip fracture acu te ESRD on hemodialysis acute Hyperparathyroidism, secondary renal acute [facility] Work Phone: Evaluation note* Diagnosis Encounter for other preprocedural examination Preop cardiovascular exam Pre-operative cardiovascular examination Pre-transplant evaluation for kidney transplant Other specified pre-operative examination documented [facility] this encounter [facility]* Diagnosis Congestive heart failure, unspecified HF chronicity, unspecified heart failure type (HCC)- Primary Preop cardiovascular exam Pre-operative cardiovascular examination Abnormal echocardiogram Nonspecific (abnormal) findings on radiological and other examination of other intrathoracic organs [facility]* Diagnosis Encounter for other preprocedural examination Preop cardiovascular exam Pre-operative cardiovascular examination Pre-transplant evaluation for kidney transplant Other specified pre-operative examination documented in this encounter [facility] general Narrative - Reported* Type Description Date Medical History End Stage Kidney Disease: hemodi alysis Medical History Anemia Medical History Incisional hernia of anterior abdominal wall without obstruction or gangrene Medical History Chronic venous insufficiency Medical History Anemia due to acute blood loss Medical History Vitamin D deficiency Surgical History gastric bypass 2003 Surgical History hernia repair 02/2012 Surgical History EGD Surgical History Revision gastric bypass 08/2022 Hospitalization History See scanned patient [facility] Other [facility] general Narrative - Reported* Type Description Date Medical History End Stage Kidney Disease: hemodi alysis Medical History Anemia Medical History Incisional hernia of anterior abdominal wall without obstruction or gangrene Medical History Chronic venous insufficiency Medical History Anemia due to acute blood loss Medical History Vitamin D deficiency Surgical History gastric bypass 2003 Surgical History hernia repair 02/2012 Surgical History EGD Surgical History Revision gastric byp ass, colonoscopy recommended in 08/2022 Hospitalization History See scanned patient [facility] Other [facility] general Narrative - ReportedNoPerceivant Other [facility] general Narrative - Reported* Type Description Date Medical History End Stage Kidney Disease: hemodi alysis Medical History Anemia Medical History Incisional hernia of anterior abdominal wall without obstruction or gangrene Medical History Chronic venous insufficiency Medical History Anemia due to acute blood loss Medical History Vitamin D deficiency Medical History [ ] Surgical History gastric bypass 2003 Surgical History hernia repair 02/2012 Surgical History EGD Surgical History Revision gastric byp ass, colonoscopy recommended in 08/2022 Surgical History [ ] Hospitalization History See scanned patient [facility] Other history general Narrative - Reported* Type Description Date Medical History End Stage Kidney Disease: hemodi alysis Medical History Anemia Medical History Incisional hernia of anterior abdominal wall without obstruction or gangrene Medical History Chronic venous insufficiency Medical History Anemia due to acute blood loss Medical History Vitamin D deficiency Medical History [ ] Medical History Subcapital left femur fracture Surgical History gastric bypass 2003 Surgical History hernia repair 02/2012 Surgical History EGD Surgical History Revision gastric byp ass, colonoscopy recommended in 08/2022 Surgical History Left AMANDEEP 01/2023 Hospitalization History See scanned patient [facility] Other History general Narrative - Reported* Type Description Date Medical History End Stage Kidney Disease: hemodi alysis Medical History Anemia Medical History Incisional hernia of anterior abdominal wall without obstruction or gangrene Medical History Chronic venous insufficiency Medical History Anemia due to acute blood loss Medical History Vitamin D deficiency Medical History Subcapital left femur fracture Medical History Upper GIB Surgical History gastric bypass 2004 Surgical History hernia repair 02/2012 Surgical History EGD Surgical History Revision gastric byp ass, colonoscopy recommended in 08/2022 Surgical History Left AMANDEEP 01/2023 Hospitalization History See scanned patient hist [facility] Other Hospital course Narrative No data available for this section [facility] Hospital Discharge instructionsAmbulatory Orders* Initiate Home Health Time Frame: 1 Day, Location: Determined By Patient Additional Instructions Home Health to manage care: - Full code - PT/OT eval and treat - Routine vital signs - Medication management and education - Maintain Prevena wound care per Orthopedic Surgery - reinforce Prevena as needed - WBAT For Pain - For mild pain and fever, you can use [id number]-mxwhglm Tylenol (500 mg). One to two tablets may be taken every 6 hours as needed. - For severe pain, the prescribed opioid pain medication should be taken as directed (never drive while taking opioid pain medication. Also, opioid pain medication can cause constipation, for which you can use [id number] laxative).[facility] Work Phone: Hospital Discharge instructions Additional Instructions DISCHARGE INSTRUCTIONS- TAKING CARE OF YOUR FISTULA OR GRAFT You have a: graft A fistula or graft (both called an access) was created to provide an adequate blood flow for dialysis. Dialysis is a process to clean your blood of waste products and remove fluid. You need to take care of your fistula or graft to keep it working well and to watch for problems such as blood clots or infection. Please wash your access site prior to dialysis and wear clothing to dialysis that allows easy access to your graft or fistula. CARE OF YOUR ACCESS Check your fistula or graft at least every day. It should be buzzing . This is called a thrill and is caused by blood flowing through the fistula or graft. If blood clots form in your access this blood flow is blocked and you will not feel the buzz . Please check with your physician if you cannot Feel the Thrill . PRECAUTIONS: The goal is to avoid activities that might decrease the blood flow or damage your new access. 1. Tell others that you have a fistula or graft. -Do NOT let anyone take your blood pressure or draw blood work in your fistula or graft arm. -Do NOT let anyone put name bands on this arm. 2. Keep it clean. Scratching is off-limits. 3. DO NOT use your fistula or graft as a pillow. DO NOT sleep with your arm under your head. 4. Avoid carrying items like purses and packages on your arm. Use your other arm to carry heavy items. 5. Avoid wearing clothes with tight sleeves or stretch bands at the wrist. DO NOT wear a watch on this arm. WATCH FOR INFECTION -At times, a fistula or graft can become infected. Check your fistula or graft at least once a day for infection. SIGNS OF INFECTION ARE: -Redness or warmth in the skin area over the fistula or graft -Swelling and soreness of the skin -A fever of over 100 degrees F -Drainage from fistula or graft site SPECIAL CARE FOR THOSE WITH A FISTULA ONLY -Over time usually in 1-4 months the vein in your arm near the surgery site will enlarge or mature. The bigger the vein becomes, the easier it will be to use for dialysis. -Making a fist or squeezing a rubber ball or hand refinery operator polymerization plant increases the blood flow to your fistula helping it to work better and mature faster. Try squeezing the ball during the commercials while watching TV. As a general guideline exercise can be started in 3 weeks after your fistula is placed. WHEN TO CALL YOUR DOCTOR -If you CANNOT feel the buzzing or hear it with a stethoscope, do not wait! CALL YOUR DOCTOR IMMEDIATELY SO IT CAN BE CHECKED. -If you have signs of infection, consult your physician. -Get to know your fistula or graft. Report any changes in how it sounds, feels, or looks! IMPORTANT NUMBERS -[facility] [phone] -[facility] Emergency Room [phone] -Nephrology [phone] -Vascular [phone] FOLLOW UP -Call your physician to schedule a post-operative appointment. [facility] Work Phone: Hospital Discharge instructions No data available for this section [facility] Progress note No data available for this section [facility] Stuart Progress note Author He Fam [facility] February 06, 2023 3:10pm Note Date/Time February 06, 2023 3:10pm [facility] [address] [place] [address] Nephrology Progress Note Signed Patient: Mele Sky MR#: [id number] : 1955 Acct:[id number] Age/Sex: 67 / M Adm Date: 3 Loc: Room: [address] [place] [address] Type: ADM IN Attending Dr: Erin Anderson MD Copies to: ~ Date of Service: 02/06/2023 Subjective Subjective Narrative: Mr. Calvin is a 67-year-old white gentleman with history of ESRD on hemodialysis at [place] dialysis unit on MWF schedule since August 2022. He hascomplicated medical history as listed below. Patient presented to [facility] ER on 02/04 with pain involving the left hip. 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 Imaging inthe ER showed evidence of closed left hip fracture. Subsequently [facility] since he may need nephrology service for dialysis. Patient reported that he did feel about 2 weeks ago and that he went to [facility] and had CT scan of the hip and he was told that there was no fracture. He has been doing fine and working with no issues over the last 2 weeks. Patient was admitted for orthopedic evaluation and possible surgery. Nephrology was consulted for management of ESRD and dialysis. Interval history: Patient underwent left total hip arthroplasty yesterday and he did tolerated well. He is being seen and examined on hemodialysis. He stated that the pain has markedly improved. He stated that he was able to bear weight with physical therapy this morning. Possibly he is going to be discharged over the weekend. He is not qualified for rehab as he is able to handle himself at home. Patient denies shortness of breath or chest pain. Blood pressure 102/60. Pulseox 98% in room air. No edema. Exam Physical Exam Vital Signs: Temp Pulse Resp BP Pulse Ox O2 Del Method O2 Flow Rate 36.6 C 89 14 102/60 98 Room Air 8 02/06/23 13:50 02/06/23 13:50 02/06/23 13:50 02/06/23 13:50 02/06/23 13:50 02/06/23 13:50 02/05/23 20:52 Narrative: Constitutional: Appears comfortable and not in distress HEENT: Head was atraumatic, normocephalic. He has significant pallor with no jaundice or cyanosis. Mucous membranes are moist. Cardiovascular: RRR, normal S1-S2, no gallop or rub, No JVD Respiratory: Good bilateral air entry no wheezing or crackles Gastrointestinal: Soft, non tender, positive bowel sounds. No palpable organs or masses. Scar from previous surgeries are well-healed. Extremities: No edema Skin: No rashes or bruises Musculoskeletal: Pain involving the left leg and hip s/p total hip arthroplasty Neurology: Awake, alert, oriented ?3, No focal motor or sensory deficits Psych: Normal mood and affect Objective Intake and Output I&O: Intake & Output 02/03/23 02/04/23 02/05/23 02/06/23 23:59 23:59 23:59 23:59 Intake Total 900 / 900 1100 / 1100 Output Total 200 / 200 2480 / 2480 Balance 700 / 700 -1380 / -1380 Weight 82.9 kg 88.1 kg Meds and Allergies Meds: Active Medications Acetaminophen (Acetaminophen 325 Mg Tablet) 650 mg PO Q6HR PRN PRN Reason: Pain Scale 1 - 3 or fever Stop: 02/05/24 03:54 Acetaminophen (Acetaminophen 500 Mg Tablet) 1,000 mg PO Q8H [facility] Stop: 02/05/24 20:29 Last Admin: 02/06/23 13:31 Dose: Not Given Ascorbic Acid (Ascorbic Acid 500 Mg Tablet) 500 mg PO BID.WITH.MEALS [facility] Stop: 02/06/24 07:59 Last Admin: 02/06/23 09:21 Dose: 500 mg Cefadroxil (Cefadroxil 500 Mg Capsule) 500 mg PO BID [facility] Stop: 02/13/23 09:01 Darbepoetin Trevor (Darbepoetin Trevor In Polysorbat 25 Mcg/Ml Vial) 25 mcg IV- PUSHWE [facility] Stop: 02/11/24 09:17 Ferrous Sulfate (Ferrous Sulfate 324 Mg Tablet.Dr) 324 mg PO BID.WITH.MEALS [facility] Stop: 02/06/24 07:59 Last Admin: 02/06/23 09:22 Dose: 324 mg Heparin Sodium (Porcine) (Heparin 10,000 Unit/10 Ml Vial) 4,100 unit IV PRN PRN PRN Reason: Dialysis Stop: 02/08/24 10:42 Last Admin: 02/06/23 10:55 Dose: 4,100 unit Hydromorphone HCl (Hydromorphone 0.5 Mg/0.5 Ml Syringe) 0.5 mg IV-PUSH Q4H PRN PRN Reason: Pain Scale 8 - 10 Last Admin: 02/05/23 15:19 Dose: 0.5 mg Sodium Chloride (0.9% Sodium Chloride 500 Ml) 500 mls @ 20 mls/hr IV ONCE ONE Stop: 02/06/23 15:18 Last Infusion: 02/05/23 21:06 Dose: 20 mls/hr Lactated Ringer's (Lactated Ringers) 1,000 mls @ 75 mls/hr IV .[id number] [facility] Stop: 02/05/24 20:29 Last Admin: 02/06/23 09:22 Dose: Not Given Sodium Chloride (0.9% Sodium Chloride 1,000 Ml) 1,000 mls @ 0 mls/hr MISCELLANE.Q0M PRN PRN Reason: Dialysis Stop: 02/06/24 09:17 Last Infusion: 02/06/23 12:17 Dose: Infused Morphine Sulfate (Morphine Sulfate 12hr Er 15 Mg Tablet.Er) 15 mg PO Q12H PRN PRN Reason: Pain Naloxone HCl (Naloxone Hcl 0.4 Mg/Ml Vial) 0.4 mg IV-PUSH Q2M PRN PRN Reason: Opioid Reversal Stop: 02/05/24 20:20 Oxycodone HCl (Oxycodone Ir 5 Mg Tablet) 5 mg PO Q6HR PRN PRN Reason: Pain Scale 4 - 7 Last Admin: 02/05/23 12:20 Dose: 5 mg Oxycodone HCl (Oxycodone Ir 5 Mg Tablet) 5 mg PO Q4HR PRN PRN Reason: Pain Scale 6 - 10 Pantoprazole Sodium (Pantoprazole 40 Mg Vial) 40 mg IV-PUSH BID [facility] Stop: 02/05/24 08:59 Last Admin: 02/06/23 09:22 Dose: 40 mg Paricalcitol (Paricalcitol 10 Mcg/2 Ml Vial) 6 mcg IV-PUSH 3XW MELISSA Stop: 02/06/24 09:29 Last Admin: 02/06/23 10:40 Dose: 6 mcg Prochlorperazine Edisylate (Prochlorperazine Edisylate 10 Mg/2 Ml Vial) 5 mg IV- PUSH Q4H PRN PRN Reason: Nausea And Vomiting Stop: 02/05/24 03:54 Sodium Chloride (Sodium Chloride 0.9 % 10 Ml Syringe) 10 ml IV-PUSH PRN PRN PRN Reason: Flush Stop: 02/05/24 04:31 Last Admin: 02/06/23 09:22 Dose: 10 ml Sodium Chloride (Sodium Chloride 0.9 % 10 Ml Vial.Pf) 10 ml INJECTION PRN PRN PRN Reason: Dilution Stop: 02/05/24 04:31 Last Admin: 02/06/23 09:22 Dose: 10 ml Sodium Chloride (Sodium Chloride 0.9 % 10 Ml Syringe) 0 ml IV-PUSH PRN PRN PRN Reason: Flush Stop: 02/05/24 14:18 Last Admin: 02/05/23 16:47 Dose: 10 ml Sodium Chloride (Sodium Chloride 0.9 % 10 Ml Syringe) 0 ml IV-PUSH PRN PRN PRN Reason: Flush Stop: 02/05/24 16:08 Last Admin: 02/06/23 10:41 Dose: 40 ml Sodium Chloride (Sodium Chloride 0.9 % 10 Ml Syringe) 0 ml IV-PUSH QSHIFT MELISSA Stop: 02/05/24 21:59 Last Admin: 02/06/23 14:08 Dose: 10 ml Sodium Chloride (Sodium Chloride 0.9 % 10 Ml Syringe) 0 ml IV-PUSH PRN PRN PRN Reason: Flush Stop: 02/06/24 09:17 Tramadol HCl (Tramadol 50 Mg Tablet) 50 mg PO Q4H PRN PRN Reason: Pain Scale 1 - 5 Stop: 08/04/23 20:20 Last Admin: 02/06/23 14:08 Dose: 50 mg Allergies shellfish derived Allergy (Verified 01/22/23 08:29) Anaphylaxis Results Labs 02/06/23 05:39 02/06/23 05:39 Labs: 02/06/23 05:39 BUN 42 H Creatinine 6.02 H D Radiology Impressions Impressions - last 24 hours: Impressions Hip X-Ray 02/05/23 18:00 IMPRESSION: Intraoperative views demonstrate total left hip arthroplasty hardware placement. Impression dictated by: Luis Angel Reynolds M.D.02/06/2023 8:43 AM Dictation Location: [place] [address] Hip/Pelvis X-Ray 02/05/23 20:23 IMPRESSION: Uncomplicated left hip arthroplasty. Impression dictated by: Rodrigo Bishop M.D.02/06/2023 8:36 AM Dictation Location: [place] [address] Any impression(s) listed above is documentation that was entered by the reading physician into a diagnostic report(s) for Mele Sky. I have reviewed the report(s) and am incorporating any findings in the treatment plan of this patient where applicable. A&P - Nephrology Assessment/Plan (1) ESRD on hemodialysis: Assessment/Problem Details: Patient has ESRD related to progression of CKD s/p FITO in setting of multiorgan failure in 2011 with incomplete recovery. Patient is currently getting dialysisat [place] dialysis [facility] on MWF schedule. Last hemodialysis was yesterday (2) Closed left hip fracture: Assessment/Problem Details: X-ray showed evidence of displaced left subcapital hip fracture s/p total hip arthroplasty on 02/05 (3) Anemia: (4) Hyperparathyroidism, secondary renal: Plan * Hemodialysis today for 225 minutes, 2K bath. 2 L ultrafiltration as tolerated. * Will skip heparin today since patient has surgery. Review Citrasate however he can go back on heparin on Thursday. * Continue Aranesp 25 mcg weekly with dialysis. * Continue Zemplar 6 mg 3 times a week with dialysis * All medications were reviewed. Patient does not take much medications at home as he has no history of diabetes or cardiac disease. Patient stable from renal point to be discharged at any time. Next hemodialysiswill be on Thursday either in-house or outpatient admitted with dialysis unit. Documented By: He Fam MD 02/06/23 1505 Signed By: <Electronically signed by MD He Fam> 02/06/23 1510 [facility] Work Phone: Reason for referral (narrative)* Reason *FU 06/23 Referral for screening colonoscopy Diagnosis 1 Screening for colon cancer (Z12.11) Referral Organization [facility] earlene Referring Provider First Name Ivan Referring Provider Last Name Gabino Referring Provider Specialty Internal Me dicine Referred Organization [facility] Referred Provider Ryan Salcedo Referred Address [address],[place], [place],[address] Referred Provider Specialty Gastroentero logy Referral Priority Routine General Notes Patient due for scre ening colonoscopy. He denies change in appetite or bowel habits. He denies heartburn or dysphagia. He denies abdominal pain, melena or hematochezia Nida Funez 06/16/2023 10:45:17 AM >received today, notes locked, attachments made, referral faxed Clinical Notes f: [phone] [employer] Other [employer] for referral (narrative)* Reason Referral for screeni ng colonoscopy Diagnosis 1 Screening for colon cancer (Z12.11) Referral Organization [facility] earlene Referring Provider First Name Ivan Referring Provider Last Name Gabino Referring Provider Specialty Internal Me dicine Referred Organization [facility] Referred Address [address],[place], [place],[address] Referred Provider Specialty Gastroentero logy Referral Priority Routine General Notes Patient due for scre ening colonoscopy. He denies change in appetite or bowel habits. He denies heartburn or dysphagia. He denies abdominal pain, melena or hematochezia [employer] Other reason for referral (narrative)* Diagnostic Procedure Only (Routine) - Closed Specialty Diagnoses / Procedures Referred By Contac t Referred To Contact MOLECULAR [facility] FUNCTIONAL IMAGING Diagnoses Encounter for other preprocedural examination Preop cardiovascular exam Pre-transplant evaluation for kidney transplant Procedures NM CARDIAC PERF STRESS/PHARM MYOCARDIAL SPECT MULTIPLE STUDIES Poggio, Michael D, MD [address] [place] [address] [facility] Functional [facility] [address] [place] [id number] Referral ID Status Reason Start Date Expiration Date V isits Requested Visits Authorized [id number] Closed Auto-Generate d Referral 05/19/2023 06/17/2024 1 1 [facility] for visit Narrative* Outpatient Procedure (Routine) - Closed Specialty Diagnoses / Procedures Referred By Mario leach Referred To Contact [facility] Diagnoses Encounter for other preprocedural examination Preop cardiovascular exam Pre-transplant evaluation for kidney transplant Procedures ECG COMPLETE ECG ROUTINE ECG W/LEAST 12 LDS W/I&R Michael Paz MD [address] [place] [address] [facility] [address] [place] [id number] Referral ID Status Reason Start Date Expiration Date V isits Requested Visits Authorized [id number] Closed Auto-Generate d Referral 05/19/2023 05/18/2024 1 1 [facility] for visit Narrative* Diagnostic Procedure Only (Routine) - Closed Specialty Diagnoses / Procedures Referred By Mario leach Referred To Contact [facility]LECULAR [facility] FUNCTIONAL IMAGING Diagnoses Encounter for other preprocedural examination Preop cardiovascular exam Pre-transplant evaluation for kidney transplant Procedures NM CARDIAC PERF STRESS/PHARM MYOCARDIAL SPECT MULTIPLE STUDIES Michael Paz MD [address] [place] [address] [facility] [address] [place] [id number] Referral ID Status Reason Start Date Expiration Date V isits Requested Visits Authorized [id number] Closed Auto-Generate d Referral 05/19/2023 06/17/2024 1 1 [facility] Summary Purpose Family History No Family History Records Found Relationship Condition Age at Onset Recorded Date/T dinah father Malignant neoplasm of lung Unknown Not Specified Diabetes mellitus Unknown Advance Directives No Advanced Directives Records Found Advance Directive Response Recorded Date/ Time Advance Directives No July 27 6:22pm Latest Code Status on File Code Status Date Activated Date Inactivated Comments Full Code 07/28/2022 6:02 AM Advance Directive Response Recorded Date/ Time Advance Directives No July 27 5:22pm Chief Complaint and Reason for Visit Chief Complaint FITO Reason for Visit ABLA (acute blood lo ss anemia) FITO (acute kidney injury) H/O gastric bypass History of necrotic bowel Metabolic acidosis Syncope and collapse Uremia Chief Complaint FITO Weight loss,tired n18.6 z01.818 need for av access Reason for Visit ABLA (acute blood lo ss anemia) FITO (acute kidney injury) H/O gastric bypass History of necrotic bowel Metabolic acidosis Syncope and collapse Uremia Acute kidney injury superimposed on chronic kidney disease Acute urinary retention FITO (acute kidney injury) Anemia H/O gastric bypass History of necrotic bowel Hyperparathyroidism, secondary renal Hypokalemia Metabolic acidosis Uremia UTI (urinary tract infection) Chief Complaint ESRD L hip fx, ESRD Reason for Visit 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, 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, 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 Anemia Closed left hip fracture ESRD on hemodialysis Hyperparathyroidism, secondary renal Chief Complaint ESRD L hip fx, ESRD ersd Reason for Visit 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, 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, 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 Anemia Closed left hip fracture ESRD on hemodialysis Hyperparathyroidism, secondary renal Chief Complaint ESRD L hip fx, ESRD ersd lt arm swollen Z96.642 esr Reason for Visit 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, 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, 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 Anemia Closed left hip fracture ESRD on hemodialysis Hyperparathyroidism, secondary renal Chief Complaint L hip fx, ESRD ersd lt arm swollen Z96.642 esr Reason for Visit Anemia Closed left hip fracture ESRD on hemodialysis Hyperparathyroidism, secondary renal Reason for Referral Specialty Diagnoses / Procedures Referred By Mario leach Referred To Contact TRANSPLANT Diagnoses Lower GI bleeding Procedures CONSULT TO TRANSPLANT CENTER EXPLORATORY LAPAROTOMY CELIOTOMY W/WO BIOPSY SPX Meryl Berger MD, PhD [address] [place] [address] [facility] [address] [address] Referral ID Status Reason Start Date Expiration Date Visits Requested Visits Authorized [id number] Authorized 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 Patient Cleared - INN Insurance Found 07/29/2022 07/29/2023 99 99 Specialty Diagnoses / Procedures Referred By Contac t Referred To Contact TRANSPLANT Diagnoses SBS (short bowel syndrome) S/P exploratory laparotomy Procedures CONSULT TO [facility] AND TRANSPLANT EXPLORATORY LAPAROTOMY CELIOTOMY W/WO BIOPSY SPX Meryl Berger MD, PhD [address] [place] [address] [facility] [address] [place] [address] Referral ID Status Reason Start Date Expiration Date Visits Requested Visits Authorized [id number] Pending Review 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 09/08/2022 09/08/2023 99 99 Specialty Diagnoses / Procedures Referred By Contac t Referred To Contact Nephrology Diagnoses Stage 3 chronic kidney disease, unspecified whether stage 3a or 3b CKD (HCC) Procedures CONSULT TO KIDNEY MEDICINE OFFICE/OUTPATIENT [facility] MDM 60-74 MINUTES Meryl Berger MD, PhD [address] [place] [address] Referral ID Status Reason Start Date Expiration Date Visits Requested Visits Authorized [id number] Authorized PCP Requested Referral 09/08/2022 09/08/2023 1 1 Specialty Diagnoses / Procedures Referred By Contac t Referred To Contact Diagnoses Stage 3 chronic kidney disease, unspecified whether stage 3a or 3b CKD (HCC) Procedures CONSULT TO NEPHROLOGY Meryl Berger MD, PhD [address] [place] [address] [address] [place] [id number] Referral ID Status Reason Start Date Expiration Date Visits Requested Visits Authorized [id number] Ref Not Required PCP Requested Referral 08/28/2022 08/28/2023 1 1 Specialty Diagnoses / Procedures Referred By Contac t Referred To Contact TRANSPLANT Diagnoses ESRD on dialysis (HCC) Pre-transplant evaluation for ESRD (end stage renal disease) Procedures CONSULT TO [facility] OFFICE/OUTPATIENT NEW HIGH MDM 60-74 MINUTES CHEST X-RAY, FRONT&LAT ECG ROUTINE ECG W/LEAST 12 LDS TRCG ONLY W/O I&R CT ANGIOGRAPHY CHEST W/CONTRAST/NONCONTRAST CT ABDOMEN W & W/O CONTRAST Michael Paz MD [address] [place] [address] [facility] [address] [place] [address] Referral ID Status Reason Start Date Expiration Date Visits Requested Visits Authorized [id number] Pending Review 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 01/29/2023 01/29/2024 99 99 Specialty Diagnoses / Procedures Referred By Contac t Referred To Contact Cardiology Diagnoses Congestive heart failure, unspecified HF chronicity, unspecified heart failure type (HCC) Preop cardiovascular exam Abnormal echocardiogram Procedures CONSULT TO CARDIOLOGY OFFICE/OUTPATIENT [facility] 60 MINUTES Michael Paz MD [address] [place] [address] Referral ID Status Reason Start Date Expiration Date Visits Requested Visits Authorized [id number] Authorized PCP Requested Referral 07/09/2023 07/08/2024 1 1 Additional Source Comments (unrecognized sect ion and content) No Status Records FoundNo Status Records FoundNo Status Records FoundNo Status Records FoundNo Status Records Found INFORMATION SOURCE (unrecogn ized section and content) DATE CREATED AUTHOR 03/25/2022 [facility] DATE CREATED AUTHOR AUTHOR'S ORGANIZ ATION 08/03/2022 [facility] DATE CREATED AUTHOR AUTHOR'S ORGANIZ ATION 05/08/2023 [facility] DATE CREATED AUTHOR AUTHOR'S ORGANIZ ATION 06/24/2023 [facility] DATE CREATED AUTHOR AUTHOR'S ORGANIZ ATION 07/22/2023 [facility] Care Teams (unrecognized sec tion and content) Team Status: Active Member Role Status Dates Ivan Lloyd DO Primary Care Provider Active Team Status: Inactive Member Role Status Dates Ivan Lloyd DO Primary Care Provider Active Tk Shah MD Admit Provider, Attending Provi chastity Active Ski Base Trimmer Relationship Specialty Start Date End Date Ivan Lloyd DO PCP - General 05/18/11 Ski Base Trimmer Relationship Specialty Start Date End Date Ivan Lloyd, DO [address] [facility] [place] [address] PCP - General Internal Medicine 08/20/22 Ski Base Trimmer Relationship Specialty Start Date End Date Ivan Lloyd, DO [address] [facility] [address] PCP - General Internal Medicine 08/20/22 Ski Base Trimmer Relationship Specialty Start Date End Date Iavn Lloyd, DO [address] [facility] [place] [address] PCP - General Internal Medicine 08/20/22 Ski Base Trimmer Relationship Specialty Start Date End Date Ivan Lloyd, DO [address] [facility] [address] PCP - General Internal Medicine 08/20/22 Ski Base Trimmer Relationship Specialty Start Date End Date Ivan Lloyd, DO [address] [place] [facility] [place] [address] PCP - General Internal Medicine 08/20/22 Team Status: Inactive Member Role Status Dates Ivan Lloyd , Primary Care Provider Active Zoila Mckinley APRN Emergency Provider Active Brandi Rodriguez MD Admit Provider, Attending Provider Active Sergio Lassiter MD Other Provider Active He Fam MD Other Provider Active Team Status: Inactive Member Role Status Dates Ivan Lloyd DO Primary Care Provider Active Rodrigo Miller MD Attending Provider Active Ski Base Trimmer Relationship Specialty Start Date End Date Ivan Lloyd, DO [address] [facility] [place] [address] PCP - General Internal Medicine 08/20/22 Ski Base Trimmer Relationship Specialty Start Date End Date Ivan Lloyd, DO [address] [facility] [address] PCP - General Internal Medicine 08/20/22 Team Status: Inactive Member Role Status Dates Ivan Lloyd , DO Primary Care Provider Active Tk Shah MD Admit Provider Active He Fam MD Other Provider Active Patito Lama MD Other Provider Active Jerome Pagan MD Other Provider Active Rubens Sanders MD Other Provider Active Kim Garcia MD Other Provider Active Maykel Betancur MD Other Provider Active Maverick Mendoza MD Other Provider Active Sophy Street MD Other Provider Active Gibson Aragon , DO Other Provider Active Em Melissa II, MD Other Provider Active Naun Le , DO Other Provider Active Erin Anderson MD Attending Provider Active Team Status: Inactive Member Role Status Dates Ivan Lloyd , DO Primary Care Provider Active Shahab Jones , DO Emergency Provider Active Team Status: Inactive Member Role Status Dates Ivan Lloyd , DO Primary Care Provider Active Em Melissa II, MD Attending Provider Active Ski Base Trimmer Relationship Specialty Start Date End Date Ivan Lloyd DO [address] [place] [id number] PCP - General Internal Medicine 08/20/22 Ski Base Trimmer Relationship Specialty Start Date End Date Ivan Lloyd DO [address] [place] [address] PCP - General Internal Medicine 08/20/22 Ski Base Trimmer Relationship Specialty Start Date End Date Ivan Lloyd DO [address] [place] [address] PCP - General Internal Medicine 08/20/22 Ski Base Trimmer Relationship Specialty Start Date End Date Ivan Lloyd DO [address] [place] [address] PCP - General Internal Medicine 08/20/22 Scheduled Active and Recently Administ ered Medications (unrecognized section and content) Medication Order 07/27/2022 07/28/2022 07/29/2022 calcium gluconate 2,000 mg in sodium chloride 100 mL (COMPLETED) 2,000 mg, IntraVENous, at 50 mL/hr, Administer over 120 Minutes, ONCE, On Thu07/28/22 at 1630, For 1 dose 1644 (New Bag - Provider: Araceli Dominguez RN)1844 (Stopped - Provider: Araceli Dominguez RN) calcium gluconate 2,000 mg in sodium chloride 100 mL (COMPLETED) 2,000 mg, IntraVENous, at 50 mL/hr, Administer over 120 Minutes, ONCE, On Thu07/29/22 at 0100, For 1 dose 0121 (New Bag - Provider: Estrellita Lin RN)0304 (Rate/Dose Verify - Provider: FOZIA SNYDER)0312 (Stopped - Provider: FOZIA SNYDER) cefTRIAXone (ROCEPHIN) 1,000 mg in sterile water 10 mL IV syringe (CANCELED) 1,000 mg, IntraVENous, EVERY 24 HOURS, First dose on Thu07/28/22 at 0830, Until Discontinued, Antimicrobial Indications: Intra-Abdominal Infection, Administer as slow IV Push over 5 mins Reconstitute 1 g vials with 9.6 mL of designated diluent to produce a 100 mg/mL solution. 0820 (Given - Provider: Araceli Dominguez RN) potassium chloride 20 mEq/50 mL IVPB (Central Line) (COMPLETED) 20 mEq, IntraVENous, ONCE, 1 dose, On Thu07/28/22 at 1215, at 50 mL/hr, For Central Line administration only. Do not administer via peripheral lines. Patient must be on night monitor if rate is greater than 10 mEq/hour. 1206 (New Bag - Provider: rAaceli Dominguez RN)1250 (Rate/Dose Verify - Provider: Neema Mercado RN) sodium chloride flush 0.9 % injection 5-40 mL 5-40 mL, IntraVENous, EVERY 12 HOURS SCHEDULED (2 times per day), First dose on Thu07/28/22 at 0900, Until Discontinued, For Line Patency: Peripheral IV = 5 mL; Midline or Central Line = 10 mL/lumen. If following IV push medication, administer flush at same rate as the IV push. Flush volume is determined by type of infusion therapy being given. For non-viscous solutions use: Peripheral IV = 5 mL Midline or Central Line = 10 mL/lumen For viscous solutions (i.e. blood components, parenteral nutrition, contrast media, or after obtaining blood sample) use: Peripheral IV = 10 mL Midline or Central Line = 20 mL/lumen 0822 (Not Given - Provider: Araceli Dominguez RN - Reason: Loss of IV access)2024 (Given - Provider: FOZIA SNYDER) 0900 (Due)2100 (Due) tranexamic acid-NaCl IVPB premix 1,000 mg (COMPLETED) 1,000 mg, IntraVENous, at 400 mL/hr, Administer over 15 Minutes, ONCE, On Thu07/28/22 at 2130, For 1 dose 2242 (New Bag - Provider: FOZIA SNYDER)2257 (Stopped - Provider: Estrellita Lin RN) tranexamic acid-NaCl IVPB premix 1,000 mg (COMPLETED) 1,000 mg, IntraVENous, at 12.5 mL/hr, Administer over 8 Hours, ONCE, On Thu07/28/22 at 2130, For 1 dose 2355 (New Bag - Provider: Estrellita Lin RN) 0222 (Rate/Dose Verify - Provider: FOZIA SNYDER)0303 (Stopped - Provider: FOZIA SNYDER)0755 (Due: Stopped - Provider: Estrellita Lin RN) Continuous Medication Order 07/27/2022 07/28/2022 07/29/2022 0.9 % sodium chloride infusion (CANCELED) IntraVENous, at 200 mL/hr, CONTINUOUS, Starting on Thu07/28/22 at 0630 0859 (New Bag - Provider: Neema Mercado RN)0914 (Rate/Dose Verify - Provider: Neema Mercado RN)1240 (Stopped - Provider: Neema Mercado RN) pantoprazole (PROTONIX) 80 mg in sodium chloride 0.9 % 100 mL infusion 8 mg/hr (10 mL/hr), IntraVENous, CONTINUOUS, Starting on Thu07/28/22 at 0630, Until Lyndsey 07/31/22 at 0629 0813 (New Bag - Provider: Araceli Dominguez RN)0813 (Rate/Dose Verify - Provider: Neema Mercado RN)1250 (Rate/Dose Verify - Provider: Neema Mercado RN)1337 (NoRateChange - Provider: CHYNA Duong CRNA)1654 (Rate/Dose Verify - Provider: Araceli Dominguez RN)1654 (Rate/Dose Verify - Provider: Araceli Dominguez RN)1824 (Rate/Dose Verify - Provider: Araceli Dominguez RN)1824 (Rate/Dose Verify - Provider: Araceli Dominguez RN)1826 (New Bag - Provider: Araceli Dominguez RN)191 (Handoff - Provider: Araceli Dominguez RN)191 (Rate/Dose Verify - Provider: Araceli Dominguez RN)221 (Rate/Dose Verify - Provider: Estrellita Lin RN) 031 (Stopped - Provider: FOZIA SNYDER) sodium bicarbonate 150 mEq in dextrose 5 % 1,000 mL infusion IntraVENous, at 150 mL/hr, CONTINUOUS, Starting on Thu07/28/22 at 1300 1244 (New Bag - Provider: Araceli Dominguez RN)1337 (NoRateChange - Provider: CHYNA Duong CRNA)191 (Handoff - Provider: Araceli Dominguez RN)2015 (New Bag - Provider: FOZIA SNYDER)221 (Associate Infusion Device - Provider: Estrellita Lin RN) 031 (Stopped - Provider: FOZIA SNYDER) PRN Medication Order 07/27/2022 07/28/2022 07/29/2022 0.9 % sodium chloride infusion (CANCELED) IntraVENous, at 5-250 mL/hr, PRN, if patient receiving piggyback infusions and maintenance fluids are not ordered OR KVO fluids to protect IV site / prevent frequent line interruptions/ long duration, Starting on Thu07/28/22 at 0554, For piggyback infusion, administer at same rate as piggyback for a total of 25 mL. Enter 25 mL into dose field and piggyback rate into rate field of order. If piggyback is infusing at a rate less than 100 mL/hr, enter 25 mL into dose field and 100 mL/hr into rate field of order. For KVO fluids, enter rate of 20 mL/hr or less into rate field of order. 2214 (Associate Infusion Device - Provider: Estrellita Lin RN)2355 (Stopped - Provider: FOZIA SNYDER) 0.9 % sodium chloride infusion IntraVENous, at 240 mL/hr, Administer over 10 Minutes, PRN, blood administration, Starting on Thu07/28/22 at 2241, For 1 dose, For use in priming line prior to transfusion (prime via gravity) and flush line post transfusion ONLY. Discontinue once line has been cleared of remaining blood product. acetaminophen (TYLENOL) suppository 650 mg(Linked Group 1) 650 mg, Rectal, EVERY 6 HOURS PRN, Starting on Thu07/28/22 at 0554, Until Discontinued, Pain Mild (1-3), Fever, For temp greater than 100.4 F (38 C), Administer if oral route cannot be used. acetaminophen (TYLENOL) tablet 650 mg(Linked Group 1) 650 mg, Oral, EVERY 6 HOURS PRN, Starting on Thu07/28/22 at 0554, Until Discontinued, Pain Mild (1-3), Fever, For temp greater than 100.4 F (38 C), Maximum dose of acetaminophen is 4000 mg from all sources in 24 hours. EPINEPHrine (EPINEPHrine HCL) 1 mg/10 mL injection (CANCELED) PRN, Starting on Thu07/28/22 at 1426, Until Thu07/28/22 at 1514, Intra-op 1426 (Given - Provider: Néstor Vale MD - Comment: gastric via gastroscope exp date 08/08) iopamidol (ISOVUE-370) 76 % injection 100 mL (COMPLETED) 100 mL, IntraVENous, IMG ONCE PRN, 1 dose, Starting on Thu07/28/22 at 1913, Until Thu07/28/22 at 1933, Other 1933 (Given - Provider: Kasey Simpson - Comment: [id number] 01/09) ondansetron (ZOFRAN) injection 4 mg(Linked Group 2) 4 mg, IntraVENous, EVERY 6 HOURS PRN, Starting on Thu07/28/22 at 0554, Until Discontinued, Nausea, Vomiting, Administer if oral route cannot be used. ondansetron (ZOFRAN-ODT) disintegrating tablet 4 mg(Linked Group 2) 4 mg, Oral, EVERY 8 HOURS PRN, Starting on Thu07/28/22 at 0554, Until Discontinued, Nausea, Vomiting polyethylene glycol (GLYCOLAX) packet 17 g 17 g, Oral, DAILY PRN, Starting on Thu07/28/22 at 0554, Until Discontinued, Constipation, First line therapy for constipation sodium chloride flush 0.9 % injection 5-40 mL 5-40 mL, IntraVENous, PRN, Starting on Thu07/28/22 at 0554, Until Discontinued, Line Care, After every IV line use, For Line Patency: Peripheral IV = 5 mL; Midline or Central Line = 10 mL/lumen. If following IV push medication, administer flush at same rate as the IV push. Flush volume is determined by type of infusion therapy being given. For non-viscous solutions use: Peripheral IV = 5 mL Midline or Central Line = 10 mL/lumen For viscous solutions (i.e. blood components, parenteral nutrition, contrast media, or after obtaining blood sample) use: Peripheral IV = 10 mL Midline or Central Line = 20 mL/lumen Linked Groups Order Group 1: acetaminophen (TYLENOL) tablet 650 mgJump to med 650 mg, Oral, EVERY 6 HOURS PRN, Starting on Thu07/28/22 at 0554, Until Discontinued, Pain Mild (1-3), Fever, For temp greater than 100.4 F (38 C)
Maximum dose of acetaminophen is 4000 mg from all sources in 24 hours.
Or acetaminophen (TYLENOL) suppository 650 mgJump to med 650 mg, Rectal, EVERY 6 HOURS PRN, Starting on Thu07/28/22 at 0554, Until Discontinued, Pain Mild (1-3), Fever, For temp greater than 100.4 F (38 C)
Administer if oral route cannot be used.
Group 2: ondansetron (ZOFRAN-ODT) disintegrating tablet 4 mgJump to med 4 mg, Oral, EVERY 8 HOURS PRN, Starting on Thu07/28/22 at 0554, Until Discontinued, Nausea, Vomiting Or ondansetron (ZOFRAN) injection 4 mgJump to med 4 mg, IntraVENous, EVERY 6 HOURS PRN, Starting on Thu07/28/22 at 0554, Until Discontinued, Nausea, Vomiting
Administer if oral route cannot be used.
Source Comments (unrecognize d section and content) In the event this informatio n is protected by the Federal Confidentiality of Alcohol and Drug Abuse Patient Records regulations: The Federal rules restrict any use of the information to criminally investigate or prosecute any alcohol or drug abuse patient.[facility] the event this information is protected by the Federal Confidentiality of Alcohol and Drug Abuse Patient Records regulations: The Federal rules restrict any use of the information to criminally investigate or prosecute any alcohol or drug abuse patient.[facility] Hospital[facility] the event this information is protected by the Federal Confidentiality of Alcohol and Drug Abuse Patient Records regulations: The Federal rules restrict any use of the information to criminally investigate or prosecute any alcohol or drug abuse patient.[facility] Hospital[facility] the event this information is protected by the Federal Confidentiality of Alcohol and Drug Abuse Patient Records regulations: The Federal rules restrict any use of the information to criminally investigate or prosecute any alcohol or drug abuse patient.[facility] Hospital[facility] the event this information is protected by the Federal Confidentiality of Alcohol and Drug Abuse Patient Records regulations: The Federal rules restrict any use of the information to criminally investigate or prosecute any alcohol or drug abuse patient.[facility] Hospital[facility] the event this information is protected by the Federal Confidentiality of Alcohol and Drug Abuse Patient Records regulations: The Federal rules restrict any use of the information to criminally investigate or prosecute any alcohol or drug abuse patient.[facility] Hospital[facility] the event this information is protected by the Federal Confidentiality of Alcohol and Drug Abuse Patient Records regulations: The Federal rules restrict any use of the information to criminally investigate or prosecute any alcohol or drug abuse patient.[facility] Hospital[facility] the event this information is protected by the Federal Confidentiality of Alcohol and Drug Abuse Patient Records regulations: The Federal rules restrict any use of the information to criminally investigate or prosecute any alcohol or drug abuse patient.[facility] HospitalIn the event this information is protected by the Federal Confidentiality of Alcohol and Drug Abuse Patient Records regulations: The Federal rules restrict any use of the information to criminally investigate or prosecute any alcohol or drug abuse patient.[facility] HospitalIn the event this information is protected by the Federal Confidentiality of Alcohol and Drug Abuse Patient Records regulations: The Federal rules restrict any use of the information to criminally investigate or prosecute any alcohol or drug abuse patient.[facility] Hospital[facility] the event this information is protected by the Federal Confidentiality of Alcohol and Drug Abuse Patient Records regulations: The Federal rules restrict any use of the information to criminally investigate or prosecute any alcohol or drug abuse patient.[facility] Hospital[facility] the event this information is protected by the Federal Confidentiality of Alcohol and Drug Abuse Patient Records regulations: The Federal rules restrict any use of the information to criminally investigate or prosecute any alcohol or drug abuse patient.[facility] HospitalIn the event this information is protected by the Federal Confidentiality of Alcohol and Drug Abuse Patient Records regulations: The Federal rules restrict any use of the information to criminally investigate or prosecute any alcohol or drug abuse patient.[facility] HospitalIn the event this information is protected by the Federal Confidentiality of Alcohol and Drug Abuse Patient Records regulations: The Federal rules restrict any use of the information to criminally investigate or prosecute any alcohol or drug abuse patient.[facility] HospitalIn the event this information is protected by the Federal Confidentiality of Alcohol and Drug Abuse Patient Records regulations: The Federal rules restrict any use of the information to criminally investigate or prosecute any alcohol or drug abuse patient.[facility] HospitalIn the event this information is protected by the Federal Confidentiality of Alcohol and Drug Abuse Patient Records regulations: The Federal rules restrict any use of the information to criminally investigate or prosecute any alcohol or drug abuse patient.[facility] HospitalIn the event this information is protected by the Federal Confidentiality of Alcohol and Drug Abuse Patient Records regulations: The Federal rules restrict any use of the information to criminally investigate or prosecute any alcohol or drug abuse patient.[facility] Reason for Visit (unrecogniz ed section and content) Reason Comments Referral Request Reason Comments Case Review Reason Comments Appointment Reason Comments Return Call Request Reason Comments Patient Question Reason Comments Follow Up Reason Comments Patient Question Reason Comments Post Op Surgical Follow Up urine incontinence Weight Loss Reason Comments Referral - Kidney Txp Reason Comments Radiology NM Specialty Diagnoses / Procedures Referred By Contac t Referred To Contact MOLECULAR & FUNCTIONAL IMAGING Diagnoses Encounter for other preprocedural examination Preop cardiovascular exam Pre-transplant evaluation for kidney transplant Procedures NM CARDIAC PERF STRESS/PHARM MYOCARDIAL SPECT MULTIPLE STUDIES Michael Paz MD [address] [place] [address] Molecular & Functional Imaging [address] [place] [address] Referral ID Status Reason Start Date Expiration Date V isits Requested Visits Authorized [id number] Closed Auto-Generate d Referral 05/19/2023 06/17/2024 1 FOR RECORDS PERTAINING TO PATIENTS WHO ARE OR HAVE BEEN ENROLLED IN A CHEMICAL DEPENDENCY/SUBSTANCEABUSE PROGRAM, SOME INFORMATION MAY BE OMITTED. This clinical summary was aggregated from multiple sources. Caution should be exercised in using it in the provision of clinical care. This summary normalizes information from multiple sources, and as a consequence, information in this document may materially change the coding, format and clinical context of patient data. In addition, data may be omitted in some cases. CLINICAL DECISIONS SHOULD BE BASED ON THE PRIMARY CLINICAL RECORDS. [employer] provides no warranty or guarantee of the accuracy or completeness of information in this document.
--- NOTE | 2023-07-24 03:49 | ED.GENADUL1 ---
HPI - General Adult General Chief complaint: Fever Stated complaint: colonoscopy 07/20 shivering Time Seen by Provider: 07/24/23 03:22 Source: patient and family Mode of arrival: walk-in Limitations: no limitations History of Present Illness HPI narrative: This 67-year-old male with a history of chronic renal failure who is on dialysis Thursday and Thursday and underwent a colonoscopy for pre-screening for kidney transplantation on July 20 and had dialysis on July 21 presents for evaluation of fevers and chills. The patient states he came home from his colonoscopy and slept all day. He went to dialysis on Thursday and has been having shaking chills since that time. He denies any cough. He denies any nausea or vomiting. His states he has not been eating or drinking much. He does still make a certain amount of urine. He denies any abdominal pain. He is still having loose stools after his colonoscopy prep. The patient does have an AV graft in his left arm that was placed earlier this year. The AV graft site is red and swollen and tender- he states that this is not typical for the site. He also states that they had a hard time accessing the graft on Thursday when he had dialysis. Related Data Home Medications Medication Instructions Recorded Confirmed calcium acetate(phosphat bind) 667 mg 02/05/23 mg capsule furosemide 40 mg tablet mg 02/05/23 pantoprazole 40 mg tablet,delayed mg PO 02/05/23 release tamsulosin 0.4 mg capsule mg PO 07/24/23 Allergies Allergy/AdvReac Type Severity Reaction Status Date / Time shellfish derived Allergy Intermediate Verified 07/24/23 03:32 NSAIDS (Non-Steroidal Allergy Verified 07/24/23 03:32 [facility] Social History Smoking status: Never smoker Exam Constitutional Vital Signs, click to edit/add: Last Vital Signs Temp 98.7 F 07/24/23 05:26 Pulse 90 07/24/23 06:08 Resp 16 07/24/23 06:08 BP 100/52 07/24/23 06:08 Pulse Ox 97 07/24/23 06:08 O2 Del Method Room Air 07/24/23 03:22 Course Vital Signs Vital signs: Vital Signs Temperature 101.5 F H 07/24/23 03:22 Pulse Rate 114 H 07/24/23 03:22 Respiratory Rate 16 07/24/23 03:22 Blood Pressure 118/59 07/24/23 03:22 Pulse Oximetry 95 07/24/23 03:22 Oxygen Delivery Method Room Air 07/24/23 03:22 Temperature 98.7 F 07/24/23 05:26 Pulse Rate 90 07/24/23 06:08 Respiratory Rate 16 07/24/23 06:08 Blood Pressure 100/52 07/24/23 06:08 Pulse Oximetry 97 07/24/23 06:08 Oxygen Delivery Method Room Air 07/24/23 03:22 Medical Decision Making MDM Narrative Medical decision making narrative: This 67-year-old male with a history of chronic renal failure who is on dialysis Thursday and Thursday and had dialysis Thursday in which they had trouble accessing graft in his left arm for dialysis, his words were they had to dig around a lot and then had a colonoscopy on Thursday in preparation for being considered for a kidney transplant at [facility], presents for evaluation of a fever that started Thursday/Thursday after the dialysis and Colonoscopy. He barely urinates, he has no abdominal pain and his abdomen is soft and nontender. He is still having loose stools after the colonoscopy. On arrival he was noted to be febrile with a temperature of 101.9. His graft site in his left arm is swollen, tender and erythematous. There is a black eschar over the needle insertion site from his last dialysis treatment. He is not having any chest pain or shortness of breath. He has an EKG with a right bundle-branch block. A 2 view chest x-ray was read by radiology as negative for acute findings. A respiratory panel was negative. Septic workup including 2 sets of blood cultures, Pro calcitonin, lactic acid, CBC with differential and chemistry panel was ordered. He has a normal white count. His hemoglobin is stable. His BUN and creatinine are elevated and keeping with his renal failure with need for dialysis today. He has a normal lactic acid but is Pro calcitonin is markedly elevated. Blood cultures are pending at this time. He was medicated empirically with 3.375 g of IV Zosyn. In light of the fact that he is in need of dialysis and we do not have dialysis available at this facility as well as the fact that the vascular surgeon who placed his graft is at [facility], I discussed the case with the hospitalist at [facility] and he is accepted for transfer. He prefers to go by private vehicle and his will take him there once a bed is avaiable. He was given tylenol for his fever and his feeling somewhat better. He has been tolerating oral fluids while in the ED but IVF were held. The case was discussed with the hospitalist, Dr Hill, and he is accepted for transfer. Medical Records Medical records narrative: [place] [address] XRay Report Signed Patient: SHANE ROY MR#: [id number] : 1955 Acct:[id number] Age/Sex: 67 / M ADM Date: 07/24/23 Loc: ER Attending Dr: Ordering Physician: Katty Love Date of Service: 07/24/23 Procedure(s): XR chest 2V Accession Number(s): [id number] cc: Ronen Chen D.O.; Katty Love~ The [place] [id number] Patient Name: SHANE ROY MRN: [id number] date: 1955 Sex: M Assigned Patient Location: ER Current Patient Location: ER Accession/Order Number: [id number] Exam Date: 07/24/2023 04:58 Report Date: 07/24/2023 05:36 At the request of: KATTY LOVE Procedure: XR chest 2V EXAM: XR chest 2V HISTORY: fever dialysis Thursday. Fatigue. COMPARISON: None. TECHNIQUE: Frontal and lateral chest x-rays. FINDINGS: Cardiac size and mediastinal contour are normal. There is dilatation of the central pulmonary arteries. Mild hilar bronchial wall thickening is suggested on the frontal view. No pulmonary edema, focal infiltrate, pleural fluid or pneumothorax is seen. The lungs are somewhat hyperinflated. The bony thorax appears intact. XR/XR chest 2V IMPRESSION: 1. Pulmonary hyperinflation with suggested mild hilar bronchial wall thickening of the frontal view may reflect mild bronchitis or reactive airways disease. No focal pneumonia. 2. Dilatation of the central pulmonary arteries suspicious for secondary pulmonary arterial hypertension due to underlying COPD. Electronically authenticated by: SIMONA SELF Date: 07/24/2023 05:36 Lab Data Lab results reviewed: Yes I reviewed the patient's lab results Labs: Lab Results 07/24/23 Range/Units 03:35 WBC 4.2 (4.0-11.0) 10^3/uL RBC 3.40 L (4.70-6.10) 10^6/uL Hgb 11.3 L (14.0-18.0) g/dL Hct 33.8 L (42.0-54.0) % MCV 99.4 H (80.0-94.0) fL MCH 33.2 (25.9-34.0) pg MCHC 33.4 (29.9-35.2) g/dL RDW 14.5 (11.0-15.0) % Plt Count 91 L (150-450) 10^3/uL MPV 9.8 (9.5-13.5) fL Neut % (Auto) 77.8 H (43.0-75.0) % Lymph % (Auto) 11.6 L (20.5-60.0) % [place] % (Auto) 9.7 (1.7-12.0) % Eos % (Auto) 0.2 L (0.9-7.0) % Baso % (Auto) 0.5 (0.2-2.0) % Neut # (Auto) 3.3 (1.4-6.5) 10^3/uL Lymph # (Auto) 0.5 L (1.2-3.8) 10^3/uL [place] # (Auto) 0.4 (0.3-0.8) 10^3/uL Eos # (Auto) 0.0 (0.0-0.7) 10^3/uL Baso # (Auto) 0.0 (0.0-0.1) 10^3/uL Abs Immat Gran (auto) 0.01 (0.00-0.03) 10^3/uL Imm/Tot Granulo (auto) 0.2 (0.0-0.5) % PT 10.3 (9.0-11.6) sec INR 0.97 APTT 31.0 (22.3-36.2) sec Sodium 131 L (136-145) mmol/L Potassium 3.4 L (3.5-5.1) mmol/L Chloride 95 L (98-107) mmol/L Carbon Dioxide 24.8 (21.0-32.0) mmol/L Anion Gap 14.6 BUN 57.0 H (7.0-18.0) mg/dL Creatinine 7.78 H* (0.70-1.30) mg/dL Est GFR ( Amer) 9 L (>=60) Est GFR (Non-Af Amer) 7 L (>=60) BUN/Creatinine Ratio 7.3 Glucose 99 (74-106) mg/dL Lactate 1.0 (0.4-2.0) mmol/L Calcium 8.4 L (8.5-10.1) mg/dL Total Bilirubin 0.6 (0.2-1.0) mg/dL AST 43 H (15-37) U/L ALT 41 (16-63) U/L Alkaline Phosphatase 52 (46-116) U/L Total Protein 6.7 (6.4-8.2) g/dL Albumin 3.2 L (3.4-5.0) g/dL Globulin 3.5 g/dL Albumin/Globulin Ratio 0.9 Procalcitonin 5.79 H (0.00-0.50) ng/mL Adenovirus (PCR) Not detected (NOT DETECTE) C. pneumoniae DNA (PCR) Not detected (NOT DETECTE) Coronavirus Type OC43 Not detected (NOT DETECTE) Coronavirus Type HKU1 Not detected (NOT DETECTE) Coronavirus Type 229E Not detected (NOT DETECTE) Coronavirus Type NL63 Not detected (NOT DETECTE) Human Metapneumovir PCR Not detected (NOT DETECTE) M. pneumoniae (PCR) Not detected (NOT DETECTE) Parainfluenza PCR Not detected (NOT DETECTE) Parainfluenza 2 (PCR) Not detected (NOT DETECTE) Parainfluenza 3 (PCR) Not detected (NOT DETECTE) Parainfluenza 4 (PCR) Not detected (NOT DETECTE) RSV (RT-PCR) Not detected (NOT DETECTE) Entero/Rhino (PCR) Not detected (NOT DETECTE) SARS-CoV-2 (PCR) Not detected (NOT DETECTE) Bordetella pertussis (PCR) Not detected (NOT DETECTE) B parapertussis DNA PCR Not detected (NOT DETECTE) Influenza Type A (PCR) Not detected (NOT DETECTE) Influenza Type B (PCR) Not detected (NOT DETECTE) ECG Data Attestation: I personally reviewed and interpreted this ECG as follows: (Sinus rhythm at 90 beats for minute, left axis deviation, right bundle branch block, left anterior hemiblock, no acute ST segment elevation) Discharge Plan Discharge Chief Complaint: Fever Clinical Impression: Arteriovenous graft infection Patient Disposition: [facility] Time of Disposition Decision: 06:41 Discharge Location: [facility] Condition: Fair Prescriptions / Home Meds: No Action furosemide 40 mg tablet pantoprazole 40 mg tablet,delayed release (DR/EC) PO calcium acetate(phosphat bind) 667 mg capsule tamsulosin 0.4 mg capsule PO Referrals: Ronen Chen DO [Primary Care Provider] - 1 week
[2023-07-24 03:56] LABS: Adenovirus NOT DETECTED (NOT DETECTE); Bordetella parapertussis NOT DETECTED (NOT DETECTE); Coronavirus 229E NOT DETECTED (NOT DETECTE); Coronavirus HKU1 NOT DETECTED (NOT DETECTE); Coronavirus NL63 NOT DETECTED (NOT DETECTE); Coronavirus OC43 NOT DETECTED (NOT DETECTE); Human Metapneumovirus NOT DETECTED (NOT DETECTE); Human Rhinovirus/Enterovirus NOT DETECTED (NOT DETECTE); Influenza A NOT DETECTED (NOT DETECTE); Influenza B NOT DETECTED (NOT DETECTE); Mycoplasma pneumoniae NOT DETECTED (NOT DETECTE); Parainfluenza Virus 1 NOT DETECTED (NOT DETECTE); Parainfluenza Virus 2 NOT DETECTED (NOT DETECTE); Parainfluenza Virus 3 NOT DETECTED (NOT DETECTE); Parainfluenza Virus 4 NOT DETECTED (NOT DETECTE); Respiratory Syncytial Virus NOT DETECTED (NOT DETECTE); SARS-CoV-2 NOT DETECTED (NOT DETECTE)
[2023-07-24] MEDS: PIPERACILLIN SODIUM/TAZOBACTAM 3.375 GM in 0.9 % SODIUM CHLORIDE 50 ML IV (04:29)
[2023-07-24 04:30] LABS: Basophils Percent Auto 0.5 % (0.2-2.0); Eosinophils Percent Auto 0.2 % (0.9-7.0); Hematocrit 33.8 % (42.0-54.0); Hemoglobin 11.3 g/dL (14.0-18.0); Immature Granulocytes Abs Auto 0.01 10^3/uL (0.00-0.03); Immature Granulocytes Pct Auto 0.2 % (0.0-0.5); Lymphocytes Absolute Auto 0.5 10^3/uL (1.2-3.8); Lymphocytes Percent Auto 11.6 % (20.5-60.0); Mean Corpuscular HGB Conc 33.4 g/dL (29.9-35.2); Mean Corpuscular Hemoglobin 33.2 pg (25.9-34.0); Mean Corpuscular Volume 99.4 fL (80.0-94.0); Mean Platelet Volume 9.8 fL (9.5-13.5); Monocytes Absolute Auto 0.4 10^3/uL (0.3-0.8); Monocytes Percent Auto 9.7 % (1.7-12.0); Neutrophils Absolute Auto 3.3 10^3/uL (1.4-6.5); Neutrophils Percent Auto 77.8 % (43.0-75.0); Platelet Count 91 10^3/uL (150-450); Red Cell Distribution Width 14.5 % (11.0-15.0); White Blood Count 4.2 10^3/uL (4.0-11.0)
[2023-07-24] MEDS: ACETAMINOPHEN 325 MG TABLET 975 MG PO (04:32)
[2023-07-24 04:40] LABS: INR 0.97; Prothrombin Time 10.3 sec (9.0-11.6)
[2023-07-24 04:48] LABS: Alanine Aminotransferase 41 U/L (16-63); Albumin Globulin Ratio 0.9; Albumin Level 3.2 g/dL (3.4-5.0); Alkaline Phosphatase 52 U/L (46-116); Anion Gap 14.6; Aspartate Amino Transferase 43 U/L (15-37); BUN Creatinine Ratio 7.3; Bilirubin Total 0.6 mg/dL (0.2-1.0); Calcium 8.4 mg/dL (8.5-10.1); Carbon Dioxide 24.8 mmol/L (21.0-32.0); Chloride 95 mmol/L (98-107); Estimated GFR (African America 9 (>=60); Estimated GFR (Non-African Ame 7 (>=60); Globulin 3.5 g/dL; Glucose 99 mg/dL (74-106); Potassium 3.4 mmol/L (3.5-5.1); Sodium 131 mmol/L (136-145); Total Protein 6.7 g/dL (6.4-8.2)
--- NOTE | 2023-07-24 04:53 | XR_ITS ---
The [address] [address] Patient Name: SHANE ROY MRN: [id number] date: 1955 Sex: M Assigned Patient Location: ER Current Patient Location: ER Accession/Order Number: [id number] Exam Date: 07/24/2023 04:58 Report Date: 07/24/2023 05:36 At the request of: MINNA MARKER Procedure: XR chest 2V EXAM: XR chest 2V HISTORY: fever dialysis Thursday. Fatigue. COMPARISON: None. TECHNIQUE: Frontal and lateral chest x-rays. FINDINGS: Cardiac size and mediastinal contour are normal. There is dilatation of the central pulmonary arteries. Mild hilar bronchial wall thickening is suggested on the frontal view. No pulmonary edema, focal infiltrate, pleural fluid or pneumothorax is seen. The lungs are somewhat hyperinflated. The bony thorax appears intact. XR/XR chest 2V IMPRESSION: 1. Pulmonary hyperinflation with suggested mild hilar bronchial wall thickening of the frontal view may reflect mild bronchitis or reactive airways disease. No focal pneumonia. 2. Dilatation of the central pulmonary arteries suspicious for secondary pulmonary arterial hypertension due to underlying COPD. Electronically authenticated by: SIMONA SELF Date: 07/24/2023 05:36
[2023-07-24 05:16] LABS: PROCALCITONIN 5.79 ng/mL (0.00-0.50)
--- NOTE | 2023-07-24 05:51 | ECG_ITS ---
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
--- NOTE | 2023-07-24 06:02 | PC.NURSE ---
Pt has fistula to left upper arm for dialysis treatment. Upon assessment skiin around fistula appears red, warm to the touch, and has small black dot in center of where last accessed.
[2023-07-24 15:20] LABS: A. calcoaceticus-baumannii Cpx NOT DETECTED (NOT DETECTE); Bacteroides fragilis NOT DETECTED (NOT DETECTE); Candida albicans NOT DETECTED (NOT DETECTE); Candida auris NOT DETECTED (NOT DETECTE); Candida glabrata NOT DETECTED (NOT DETECTE); Candida krusei NOT DETECTED (NOT DETECTE); Candida parapsilosis NOT DETECTED (NOT DETECTE); Candida tropicalis NOT DETECTED (NOT DETECTE); Cryptococcus neoformans/gattii NOT DETECTED (NOT DETECTE); Enterobacter cloacae complex NOT DETECTED (NOT DETECTE); Enterobacterales NOT DETECTED (NOT DETECTE); Enterococcus faecalis NOT DETECTED (NOT DETECTE); Enterococcus faecium NOT DETECTED (NOT DETECTE); Haemophilus influenzae NOT DETECTED (NOT DETECTE); Klebsiella aerogenes NOT DETECTED (NOT DETECTE); Klebsiella pneumoniae group NOT DETECTED (NOT DETECTE); Listeria monocytogenes NOT DETECTED (NOT DETECTE); Neisseria meningitidis NOT DETECTED (NOT DETECTE); Proteus spp. NOT DETECTED (NOT DETECTE); Pseudomonas aeruginosa NOT DETECTED (NOT DETECTE); Salmonella spp. NOT DETECTED (NOT DETECTE); Serratia marcescens NOT DETECTED (NOT DETECTE); Staphylococcus epidermidis NOT DETECTED (NOT DETECTE); Staphylococcus lugdunensis NOT DETECTED (NOT DETECTE); Stenotrophomonas maltophilia NOT DETECTED (NOT DETECTE); Streptococcus agalactiae NOT DETECTED (NOT DETECTE); Streptococcus pneumoniae NOT DETECTED (NOT DETECTE); Streptococcus pyogenes NOT DETECTED (NOT DETECTE); Streptococcus spp. NOT DETECTED (NOT DETECTE)
[2023-07-24 16:54] LABS: mecA/C and MREJ (MRSA) NOT DETECTED (NOT DETECTE)
[2023-07-24 16:56] LABS: Source BLOOD; Staphylococcus spp. DETECTED (NOT DETECTE)
== END 2023-07-24 07:40 | disposition short-term general hospital (02) ==
PROVIDERS: Emergency Provider Emergency Medicine; PCP Internal Medicine
DX: T82.7XXA Infection and inflammatory reaction due to other cardiac and vascular devices, implants and grafts, initial encounter (principal); N18.6 End stage renal disease; R50.9 Fever, unspecified; I45.10 Unspecified right bundle-branch block; Z20.822 Contact with and (suspected) exposure to COVID-19; Z79.899 Other long term (current) drug therapy; Z99.2 Dependence on renal dialysis
CPT/HCPCS: 0202U; 36415; 71046; 80053; 81001; 83605; 84145; 85025; 85610; 85730; 87040; 87150; 87186; 93005; 96365; 99285